=== PATIENT | male | born 1960 | race African-American/Black ===

== ENCOUNTER 2016-08-23 09:30 | Inpatient (IN) | payer MEDICARE, OTHER ==
[2016-08-23] VITALS (13 sets, daily range): BP systolic 74–110; BP diastolic 53–96
[~2016-08-23] VITALS: Ht 154.9 cm; Wt 54.6 kg
[~2016-08-23 09:30] MED LIST: ACET325T9 PO; ASPI325T4 PEG; BISA10SU55 RC; CHOL10003 PO; LEVE500T56 PO; LEVO500T38 PEG; MAGN2400 PO; VITA1TAB3 PO; [UNRECOGNIZED DRUG - REMARK] PO
[2016-08-23 10:46] LABS: BASO % 0 % (0-3); EOS % 0 % (0-3); HEMATOCRIT 42.1 % (39.0-53.0); HEMOGLOBIN 13.5 g/dL (13.0-17.5); LYMPH # 0.6 x10^3/uL (1.0-4.8); LYMPH % 7 % (24-48); MEAN CORPUSCULAR HEMOGLOBIN 35 pg (25-35); MEAN CORPUSCULAR HGB CONC 32 g/dL (31-37); MEAN CORPUSCULAR VOLUME 108 fL (79-100); MONO % 1 % (0-9); NEUT % 92 % (31-73); PLATELET COUNT 216 x10^3/uL (140-400); RED BLOOD COUNT 3.91 x10^6/uL (4.30-5.70); RED CELL DISTRIBUTION WIDTH 14.8 % (11.5-14.5); WHITE BLOOD COUNT 8.1 x10^3/uL (4.0-11.0)
--- NOTE | 2016-08-23 10:58 | RAD ---
Portable chest, 08/23/2016: History: Shortness of breath, dehydration, tachycardia Comparison is made to a study from 08/21/2015. The heart size is within normal limits. The pulmonary vascularity is normal. There are mild bibasilar infiltrates, right greater than left obscuring the cardiac margins. Severe degenerative change is present at the the left shoulder. IMPRESSION: Mild basilar infiltrates, right greater than left, suggesting pneumonia. Pulmonary edema is less likely.
[2016-08-23 11:00] LABS: INR 1.7 (0.8-1.1); PROTHROMBIN TIME PATIENT 18.9 SEC (11.7-14.0)
[2016-08-23 11:10] LABS: CKMB INDEX 0.2 % (0-4); CKMB MASS 1.1 ng/mL (0.0-3.6)
[2016-08-23] MEDS ORDERED: IV NORMAL SALINE 1000ML BAG 1,000 ML IV ONE ×3 (11:15→12:30)
--- NOTE | 2016-08-23 11:18 | EKG ---
[facility] [address] [place] [address] Test Date: 2016-08-23 Test Time: 11:04:49 Pat Name: KIMBERLY HAYNES Department: Room: Gender: M Plug Sorter: : 1960 Requested By: WON ANDRE Order Number: [id number] Reading MD: Kai Stone Measurements Intervals [place] Rate: 146 P: 23 VA: 102 QRS: 59 QRSD: 86 T: 107 QT: 270 QTc: 422 Interpretive Statements SINUS TACHYCARDIA LEFT ATRIAL ABNORMALITY NONSPECIFIC ST-T WAVE CHANGES. RI6.01 Unconfirmed report Compared to ECG 07/25/2015 13:25:26 Sinus rhythm no longer present Electronically Signed On 08-30-2016 10:30:13 MACHINE ADJUSTER HELPER by Kai Stone
[2016-08-23 11:23] LABS: ALBUMIN 2.6 g/dL (3.4-5.0); DIRECT BILIRUBIN 0.6 mg/dL (0.0-0.2); MAGNESIUM 2.3 mg/dL (1.8-2.4); TOTAL PROTEIN 8.4 g/dL (6.4-8.2)
[2016-08-23 11:26] LABS: CALCIUM 9.4 mg/dL (8.5-10.1); CREATININE 2.7 mg/dL (0.7-1.3); GFR 29.9; POTASSIUM 4.8 mmol/L (3.5-5.1)
[2016-08-23] MEDS ORDERED: PIP/TAZO PER PHARMACY MC PRN (11:30)
--- NOTE | 2016-08-23 11:31 | PHYS DOC ---
Past Medical History Past Medical History: Anemia, Arthritis, Seizure, UTI, Other Additional Past Medical Histor: DYSPHAGIA,DOWN SYNDROME,SOA,G-TUBE,ALTERED MENTAL STATUS Past Surgical History: Other Additional Past Surgical Histo: G-TUBE Alcohol Use: None Drug Use: None Adult General Chief Complaint Chief Complaint: SHORTNESS OF BREATH HPI HPI Patient is a 55 year old -[place] male who presents with fever and nausea vomiting. According to his mom who takes care of him he started this last night of fever 100.1 and the last around 8 PM started having nausea and vomiting. She said he does have kind of a cough but is nonproductive. He is fed by PEG tube only on the weekends and normally takes extra calories by mouth for his bedsore. Review of Systems Review of Systems Unable to obtain Current Medications Current Medications Current Medications Medications (Trade) Dose Ordered Sig/Vernell Start Time Stop Time Status Last Admin Dose Admin Levofloxacin/ Dextrose 100 ml @ 100 mls/hr 1X ONCE 08/23/16 11:30 08/23/16 12:29 DC 08/23/16 12:58 100 MLS/HR Piperacillin Sod/ Tazobactam Sod 4.5 gm/Sodium Chloride 100 ml @ 200 mls/hr 1X ONCE 08/23/16 12:00 08/23/16 12:29 DC 08/23/16 12:00 200 MLS/HR Piperacillin Sod/ Tazobactam Sod 1 each 1 each PRN DAILY PRN 08/23/16 11:30 Sodium Chloride (Iv Sodium Chloride 0.9% 1000ml Bag) 1,000 ml @ 1,000 mls/hr 1X ONCE 08/23/16 12:30 08/23/16 13:29 DC 08/23/16 12:46 1,000 MLS/HR Vancomycin HCl (Vanco Per Pharmacy) 1 each PRN DAILY PRN 08/23/16 11:30 08/23/16 14:07 1 EACH Vancomycin HCl 1.5 gm/Sodium Chloride 500 ml @ 250 mls/hr 1X ONCE 08/23/16 12:30 08/23/16 14:29 DC 08/23/16 12:30 250 MLS/HR Allergies Allergies Allergies Coded Allergies Type Severity Reaction Last Updated Verified No Known Drug Allergies 07/29/15 No Physical Exam Physical Exam Constitutional: Cachectic appearing, mild acute distress, non-toxic appearance. [] HENT: Normocephalic, atraumatic, bilateral external ears normal, oropharynx moist, no oral exudates, nose normal. [] Eyes: PERRLA, EOMI, conjunctiva normal, no discharge. [] Neck: Normal range of motion, no tenderness, supple, no stridor. [] Cardiovascular: Tachycardic with regular rhythm Lungs & Thorax: Bilateral breath sounds decreased, no wheezing [] Abdomen: Bowel sounds normal, soft, no tenderness, no masses, no pulsatile masses PEG tube in place [] Skin: Warm, dry, no erythema, no rash. [] Back: No tenderness, no CVA tenderness. [] Extremities: No tenderness, no cyanosis,no edema. [] Current Patient Data Vital Signs Vital Signs Date Time Temp Pulse Resp B/P Pulse Ox O2 Delivery O2 Flow Rate FiO2 08/23/16 12:45 118 32 85/59 97 Nasal Cannula 2 08/23/16 10:09 99.7 99.7 Lab Values Laboratory Tests Test 08/23/16 10:28 08/23/16 11:20 White Blood Count 8.1x10^3/uL (4.0-11.0) Red Blood Count 3.91x10^6/uL (4.30-5.70) L Hemoglobin 13.5g/dL (13.0-17.5) Hematocrit 42.1% (39.0-53.0) Mean Corpuscular Volume 108fL (79-100) H Mean Corpuscular Hemoglobin 35pg (25-35) Mean Corpuscular Hemoglobin Concent 32g/dL (31-37) Red Cell Distribution Width 14.8% (11.5-14.5) H Platelet Count 216x10^3/uL (140-400) Neutrophils (%) (Auto) 92% (31-73) H Lymphocytes (%) (Auto) 7% (24-48) L Monocytes (%) (Auto) 1% (0-9) Eosinophils (%) (Auto) 0% (0-3) Basophils (%) (Auto) 0% (0-3) Neutrophils # (Auto) 7.4x10^3uL (1.8-7.7) Lymphocytes # (Auto) 0.6x10^3/uL (1.0-4.8) L Monocytes # (Auto) 0.1x10^3/uL (0.0-1.1) Eosinophils # (Auto) 0.0x10^3/uL (0.0-0.7) Basophils # (Auto) 0.0x10^3/uL (0.0-0.2) Segmented Neutrophils % 16% (35-66) L Band Neutrophils % 67% (0-9) H Lymphocytes % 9% (24-48) L Monocytes % 1% (0-10) Eosinophils % 1% (0-5) Metamyelocytes % 6% (0-0) H Toxic Vacuolation Present Platelet Estimate Adequate (ADEQUATE) Polychromasia Slight Macrocytosis Present Prothrombin Time 18.9SEC (11.7-14.0) H Prothrombin Time INR 1.7 (0.8-1.1) H Sodium Level 143mmol/L (136-145) Potassium Level 4.8mmol/L (3.5-5.1) Chloride Level 98mmol/L (98-107) Carbon Dioxide Level 9mmol/L (21-32) *L Anion Gap 36 (6-14) H Blood Urea Nitrogen 38mg/dL (8-26) H Creatinine 2.7mg/dL (0.7-1.3) H Estimated GFR (Cockcroft-Gault) 29.9 Glucose Level 248mg/dL (70-99) H Calcium Level 9.4mg/dL (8.5-10.1) Magnesium Level 2.3mg/dL (1.8-2.4) Total Bilirubin 1.0mg/dL (0.2-1.0) Direct Bilirubin 0.6mg/dL (0.0-0.2) H Aspartate Amino Transferase (AST) 41U/L (15-37) H Alanine Aminotransferase (ALT) 59U/L (16-63) Alkaline Phosphatase 80U/L (46-116) Creatine Kinase 691U/L (39-308) H Creatine Kinase MB (Mass) 1.1ng/mL (0.0-3.6) Creatine Kinase MB Relative Index 0.2% (0-4) Troponin I Quantitative < 0.017ng/mL (0.000-0.055) NW-Bup-K-Type Natriuretic Peptide 2722pg/mL (0-124) H Total Protein 8.4g/dL (6.4-8.2) H Albumin 2.6g/dL (3.4-5.0) L Thyroid Stimulating Hormone (TSH) 11.445uIU/mL (0.358-3.74) H Influenza Type A Antigen Negative (NEGATIVE) Influenza Type B Antigen Negative (NEGATIVE) Laboratory Tests 08/23/16 10:28 Laboratory Tests 08/23/16 10:28 EKG EKG EKG shows sinus tachycardia with rate of [address] elevations, T- wave inversions noted in V5 and V6, normal axis, as interpreted by me. Radiology/Procedures Radiology/Procedures [facility] [address] [place] [address] IMAGING REPORT Signed PATIENT: KIMBERLY HAYNES ACCOUNT: [id number] : 1960 LOCATION: ER AGE: 55 SEX: M EXAM STATUS: REG ER ORD. PHYSICIAN: WON ANDRE MD REASON: soa PROCEDURE: PORTABLE CHEST 1V Portable chest, 08/23/2016: History: Shortness of breath, dehydration, tachycardia Comparison is made to a study from 08/21/2015. The heart size is within normal limits. The pulmonary vascularity is normal. There are mild bibasilar infiltrates, right greater than left obscuring the cardiac margins. Severe degenerative change is present at the the left shoulder. IMPRESSION: Mild basilar infiltrates, right greater than left, suggesting pneumonia. Pulmonary edema is less likely. DICTATED and SIGNED BY: GALILEO BUSTAMANTE MD DATE: 08/23/16 1054 CC: WON ANDRE MD; HILDA ROJAS NP ~ Impressions: Healthcare acquired pneumonia Acute renal failure Dehydration Hypotension Course & Med Decision Making Course & Med Decision Making Pertinent Labs and Imaging studies reviewed. (See chart for details) Blood cultures were obtained, chest x-ray confirms right lower lobe pneumonia and left lower lobe infiltrate. His blood pressure decreased to systolic of 90s 1 L fluid was given after his labs were obtained and his bicarbonate was low with an anion gap second liter is infusing. Spoke with the hospitalist was agreeable to putting patient in the hospital I wanted to the ICU for further close observation of blood pressure. The patient's mother is agreeable plan the patient's in stable but critical condition at this time. Dragon Disclaimer Dragon Disclaimer This electronic medical record was generated, in whole or in part, using a voice recognition dictation system. Departure Departure Impression: Primary Impression: Pneumonia Disposition: ADMITTED INPATIENT Admitting Physician: Michelle Davis Condition: GUARDED Referrals: HILDA ROJAS STEAM BLOCKER (PCP) WON ANDRE MD Aug 23, 2016 11:31
[2016-08-23 11:48] LABS: OBC FLU VALID
[2016-08-23 11:57] LABS: % EOS 1 % (0-5)
[2016-08-23 11:58] LABS: PLT ESTIMATE ADEQUATE (ADEQUATE); POLYCHROMASIA SLIGHT; TOXIC VACUOLATION PRESENT
[2016-08-23] MEDS ORDERED: EPINEPHRINE 30 MG/30 ML VIAL. ONE (12:00)
[2016-08-23] MEDS ORDERED: PIPERACILLIN/TAZOBACTAM 4.5 GM in IV NORMAL SALINE 100ML 100 ML IV ONE (12:00)
[2016-08-23] MEDS ORDERED: SODIUM BICARB ADULT 8.4% 50 MEQ/50 ML DISP.SYRIN. ONE (12:00)
[2016-08-23] MEDS ORDERED: EPINEPHRINE 1 MG/10 ML DISP.SYRIN. ONE (12:00)
[2016-08-23] MEDS ORDERED: VANCOMYCIN 1.5 GM in IV NORMAL SALINE 500ML BAG 500 ML IV ONE (12:30)
[2016-08-23] MEDS: VANCOMYCIN PER PHARMACY MC PRN (14:07)
--- NOTE | 2016-08-23 15:00 | ACF ---
Admission Forms Criteria PNEUMONIA, COMMUNITY ACQUIRED Clinical Indications for Admission to Inpatient Care ( Place 'X' for any and all applicable criteria): Admission is indicated for ANY ONE of the following (1)(2)(3): [ ]I. Hypoxemia indicated by ANY ONE of the following: [ ]a) Oxygen saturation less than 90% while breathing room air [ ]b) PO2 less than 60 mm Hg (8.0 kPa) while breathing room air [ ]c) Chronic lung disease with significant deterioration from baseline oxygenation [ ]II. Appropriate diagnostic testing and treatment unavailable in outpatient or recovery facility (eg,testing or infection control measures unavailable(10) [X]III. Moderate-risk or high-risk category patients (Pneumonia Severity Index (PSI) class IV or V, or CURB-65 score of 3 or greater). [ ]IV. Outpatient treatment failure as indicated by ANY ONE of the following(9) : [ ]a) Failure to respond to antibiotic (eg, resistant organism) [ ]b) Clinically significant adverse effects from medication (eg, vomiting) [ ]c) Complications of pneumonia (eg, empyema, bacteremia) [ ]d) Significant worsening of comorbid cond necessitating inpatient care (eg, chronic heart failure) [ ]V. Intermediate-risk category patients (eg, PSI class III or CURB-65 score 2) who do not improve with initial therapy and observation. [ ]. Immunocompromised patients (eg, AIDS, chronic steroid use) at moderate or high risk based on clinical evaluation. [ ]VII. Complicated pleural effusions (eg, exudative, loculated) [ ]VIII.Hemodynamic instability [ ] IX. Altered mental status that is severe or persistent. [ ]X. Dehydration that is severe or persistent. [ ]XI. Bacteremia [ ]XII. Respiratory finding (eg. tachypnea) that do not respond to outpatient or observation care treatment Extended stay beyond goal length of stay may be needed for (20) [ ]a) Unclear diagnosis [ ]b) Pleural disease [ ]c) Severe pneumonia or treatment failure (25 [ ]d) Respiratory failure (anticipate invasive or noninvasive ventilatory support) [ ]e) Abnormal serum electrolytes (serum Na concentration less than 135 mEq/L (mmol/L) (32)(33) [ ]f) Clinically significant comorbid illness (eg, heart failure, atrial fibrillation with rapid heart rate, alcohol withdrawal, renal insufficiency)(34)(35) [ ]g) Comorbid acute exacerbation of COPD(36) [ ]h) Concomitant diagnosis of malignancy that may be associated with malnutrition, immunologic impairment, or bronchial obstruction. [ ]i) Concomitant altered mental status [ ]j) Culture-identified Gram-negative or antibiotic-resistant organism (eg, Pseudomonas, methicillin-resistant Staphylococcus aureus)(30) [ ]k) Healthcare-associated pneumonia The original [facility] [facility] content created by [employer] has been revised. The portions of the content which have been revised are identified through the use of italic text or in bold, and [facility] has neither reviewed nor approved the modified material. All other unmodified content is copyright [facility]. Please see references footnoted in the original [facility] [email or web address] edition 2016 Admission Criteria Met?: Yes DIDIER MAHMOOD Aug 23, 2016 15:00
[2016-08-23 15:45] LABS: CALCIUM 8.7 mg/dL (8.5-10.1); CREATININE 2.5 mg/dL (0.7-1.3); GFR 32.7; POTASSIUM 4.9 mmol/L (3.5-5.1)
[2016-08-23] MEDS ORDERED: BISACODYL 10 MG SUPP.RECT RC PRN (15:45)
[2016-08-23] MEDS ORDERED: ACETAMINOPHEN 500 MG TABLET PO PRN (15:45)
[2016-08-23] MEDS ORDERED: LABETALOL 20 MG/4 ML DISP.SYRIN. IVP PRN (15:45)
[2016-08-23] MEDS ORDERED: MAGNESIUM HYDROXIDE 2,400 MG/30 ML ORAL.SUSP. PO PRN (15:45)
--- NOTE | 2016-08-23 15:59 | PDOC1 ---
History and Physical Date of Admission Date of Admission DATE: 08/23/16 TIME: 15:51 Identification/Chief Complaint Chief Complaint sent by mother bec of confusion? SZ? Source Source: Chart review History of Present Illness History of Present Illness 55 y/o AAmale who came from home and mother is the caregiver. Reports of meula SZ? confusion more vthan baseline? 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 HAs indwelling PEG. LAbs remarkable for crea 2 plus, Bicarb of 9 (rot is 10), lactate of 20, initially hypotensive needed iV boluses at ER and BP is fluid responsive, no urine output yet and condom cath inserted now at ICU, Seen at ICU, Crackles all over, CXR PNA R > L. WBC 8.1 , flu neg Reports of fever last night Past Medical History CENTRAL NERVOUS SYSTEM: CVA, Seizure, Other (downs) Musculoskeletal: Osteoarthritis Endocrine: Diabetes Past Surgical History Past Surgical History: Other (PEG), No pertinent history Family History Family History: Family History Unknown Social History Smoke: No ALCOHOL: none Drugs: None Current Problem List Problem List Problems Medical Problems: (1) HAP (hospital-acquired pneumonia) Status: Acute (2) Pneumonia Status: Acute Problems: Current Medications Current Medications Current Medications Sodium Chloride 1,000 ml @ 1,000 mls/hr 1X ONCE IV Last administered on 11:16; Start 08/23/16 at 11:15; Stop 08/23/16 at 12:14; Status DC Sodium Chloride (Iv Sodium Chloride 0.9% 1000ml Bag) 1,000 ml @ 1,000 mls/hr 1X ONCE IV ; Start 08/23/16 at 11:30; Stop 08/23/16 at 12:29; Status DC Vancomycin HCl (Vanco Per Pharmacy) 1 each PRN DAILY PRN MC SEE COMMENTS Last administered on 08/23/16 14:07; Start 08/23/16 at 11:30 Piperacillin Sod/ Tazobactam Sod 1 each 1 each PRN DAILY PRN MC SEE COMMENTS; Start 08/23/16 at 11:30 Levofloxacin/ Dextrose 100 ml @ 100 mls/hr 1X ONCE IV Last administered on 2/ 27/17at 12:58; Start 08/23/16 at 11:30; Stop 08/23/16 at 12:29; Status DC Piperacillin Sod/ Tazobactam Sod 4.5 gm/Sodium Chloride 100 ml @ 200 mls/hr 1X ONCE IV Last administered on 08/23/16 12:00; Start 08/23/16 at 12:00; Stop 08/23/16 at 12:29; Status DC Vancomycin HCl 1.5 gm/Sodium Chloride 500 ml @ 250 mls/hr 1X ONCE IV Last administered on 08/23/16t 12:30; Start 08/23/16 at 12:30; Stop 08/23/16 at 14:29 ; Status DC Sodium Chloride 1,000 ml @ 1,000 mls/hr 1X ONCE IV Last administered on t 12:46; Start 08/23/16 at 12:30; Stop 08/23/16 at 13:29; Status DC Piperacillin Sod/ Tazobactam Sod 3.375 gm/Sodium Chloride 50 ml @ 100 mls/hr Q6HRS IV ; Start 08/23/16 at 18:00 Vancomycin HCl/ Sodium Chloride (Iv Sodium Chloride 0.9% 250ml) 250 ml @ 250 mls/hr Q24H IV ; Start 08/24/16 at 13:00 Vancomycin HCl 1 each 1X ONCE MC ; Start 08/25/16 at 12:30; Stop 08/25/16 at 12: 31 Labetalol HCl (Normodyne) 10 mg PRN Q2HR PRN IVP HYPERTENSION, SEE COMMENTS; Start 08/23/16 at 15:45 Aspirin (Luis Armando Aspirin) 325 mg DAILY PEG ; Start 08/24/16 at 09:00 Bisacodyl (Dulcolax Supp) 10 mg PRN DAILY PRN RC CONSTIPATION; Start 08/23/16 at 15:45 Vitamin D (Vitamin D3) 2,000 unit DAILY PO ; Start 08/24/16 at 09:00 Levetiracetam (Keppra) 500 mg BID PO ; Start 08/23/16 at 21:00 Vitamin B Complex (Hector B) 1 tab DAILY PO ; Start 08/24/16 at 09:00 Magnesium Hydroxide (Milk Of Magnesia) 2,400 mg PRN DAILY PRN PO CONSTIPATION; Start 08/23/16 at 15:45 Acetaminophen (Tylenol) 500 mg PRN Q6HRS PRN PO MILD PAIN / TEMP; Start at 15:45 Active Scripts Active Reported Milk Of Magnesia (Magnesium Hydroxide) 2,400 Mg/10 Ml Oral.susp 2,400 Mg PO DAILY PRN Dulcolax (Bisacodyl) 10 Mg Supp.rect 10 Mg RC PRN DAILY PRN Aspirin 325 Mg Tablet 1 Tab PEG DAILY Tylenol (Acetaminophen) 325 Mg Tablet 2 Tab PO PRN Q6HRS PRN Vitamin B Complex 1 Each Tablet 1 Tab PO DAILY Vitamin D3 (Cholecalciferol (Vitamin D3)) 1,000 Unit Tablet 2,000 Unit PO DAILY Keppra (Levetiracetam) 500 Mg Tablet 500 Mg PO BID Allergies Allergies: Coded Allergies: No Known Drug Allergies (Unverified , 07/29/15) ROS Review of System non verbal Physical Exam General: Other (crackles all over) HEENT: Atraumatic Lungs: Normal air movement Heart: S1S2, other (sinus tachy) Male Genitals Exam: normal genitalia, normal prostate, other (urine smelling) Rectal Exam: not examined PELVIC: Nml ext genitalia Extremities: No clubbing, No cyanosis, No edema, Normal pulses, No tenderness/ swelling Psych/Mental Status: Other (non verbal) Vitals Vitals Vital Signs Date Time Temp Pulse Resp B/P Pulse Ox O2 Delivery O2 Flow Rate FiO2 08/23/16 10:09 99.7 137 32 176/107 92 Room Air 99.7 Labs Labs Laboratory Tests Test 08/23/16 10:28 08/23/16 11:20 08/23/16 13:43 08/23/16 15:15 White Blood Count 8.1x10^3/uL (4.0-11.0) Red Blood Count 3.91x10^6/uL (4.30-5.70) Hemoglobin 13.5g/dL (13.0-17.5) Hematocrit 42.1% (39.0-53.0) Mean Corpuscular Volume 108fL (79-100) Mean Corpuscular Hemoglobin 35pg (25-35) Mean Corpuscular Hemoglobin Concent 32g/dL (31-37) Red Cell Distribution Width 14.8% (11.5-14.5) Platelet Count 216x10^3/uL (140-400) Neutrophils (%) (Auto) 92% (31-73) Lymphocytes (%) (Auto) 7% (24-48) Monocytes (%) (Auto) 1% (0-9) Eosinophils (%) (Auto) 0% (0-3) Basophils (%) (Auto) 0% (0-3) Neutrophils # (Auto) 7.4x10^3uL (1.8-7.7) Lymphocytes # (Auto) 0.6x10^3/uL (1.0-4.8) Monocytes # (Auto) 0.1x10^3/uL (0.0-1.1) Eosinophils # (Auto) 0.0x10^3/uL (0.0-0.7) Basophils # (Auto) 0.0x10^3/uL (0.0-0.2) Segmented Neutrophils % 16% (35-66) Band Neutrophils % 67% (0-9) Lymphocytes % 9% (24-48) Monocytes % 1% (0-10) Eosinophils % 1% (0-5) Metamyelocytes % 6% (0-0) Toxic Vacuolation Present Platelet Estimate Adequate (ADEQUATE) Polychromasia Slight Macrocytosis Present Prothrombin Time 18.9SEC (11.7-14.0) Prothromb Time International Ratio 1.7 (0.8-1.1) Sodium Level 143mmol/L (136-145) 147mmol/L (136-145) Potassium Level 4.8mmol/L (3.5-5.1) 4.9mmol/L (3.5-5.1) Chloride Level 98mmol/L (98-107) 105mmol/L (98-107) Carbon Dioxide Level 9mmol/L (21-32) 10mmol/L (21-32) Anion Gap 36 (6-14) 32 (6-14) Blood Urea Nitrogen 38mg/dL (8-26) 37mg/dL (8-26) Creatinine 2.7mg/dL (0.7-1.3) 2.5mg/dL (0.7-1.3) Estimated GFR (Cockcroft-Gault) 29.9 32.7 Glucose Level 248mg/dL (70-99) 197mg/dL (70-99) Calcium Level 9.4mg/dL (8.5-10.1) 8.7mg/dL (8.5-10.1) Magnesium Level 2.3mg/dL (1.8-2.4) Total Bilirubin 1.0mg/dL (0.2-1.0) Direct Bilirubin 0.6mg/dL (0.0-0.2) Aspartate Amino Transf (AST/SGOT) 41U/L (15-37) Alanine Aminotransferase (ALT/SGPT) 59U/L (16-63) Alkaline Phosphatase 80U/L (46-116) Creatine Kinase 691U/L (39-308) Creatine Kinase MB (Mass) 1.1ng/mL (0.0-3.6) Creatine Kinase MB Relative Index 0.2% (0-4) Troponin I Quantitative < 0.017ng/mL (0.000-0.055) BE-Wkl-W-Type Natriuretic Peptide 2722pg/mL (0-124) Total Protein 8.4g/dL (6.4-8.2) Albumin 2.6g/dL (3.4-5.0) Thyroid Stimulating Hormone (TSH) 11.445uIU/mL (0.358-3.74) Influenza Type A Antigen Negative (NEGATIVE) Influenza Type B Antigen Negative (NEGATIVE) Lactic Acid Level 20.4mmol/L (0.4-2.0) Laboratory Tests Test 08/23/16 10:28 08/23/16 11:20 08/23/16 13:43 08/23/16 15:15 White Blood Count 8.1x10^3/uL (4.0-11.0) Red Blood Count 3.91x10^6/uL (4.30-5.70) Hemoglobin 13.5g/dL (13.0-17.5) Hematocrit 42.1% (39.0-53.0) Mean Corpuscular Volume 108fL (79-100) Mean Corpuscular Hemoglobin 35pg (25-35) Mean Corpuscular Hemoglobin Concent 32g/dL (31-37) Red Cell Distribution Width 14.8% (11.5-14.5) Platelet Count 216x10^3/uL (140-400) Neutrophils (%) (Auto) 92% (31-73) Lymphocytes (%) (Auto) 7% (24-48) Monocytes (%) (Auto) 1% (0-9) Eosinophils (%) (Auto) 0% (0-3) Basophils (%) (Auto) 0% (0-3) Neutrophils # (Auto) 7.4x10^3uL (1.8-7.7) Lymphocytes # (Auto) 0.6x10^3/uL (1.0-4.8) Monocytes # (Auto) 0.1x10^3/uL (0.0-1.1) Eosinophils # (Auto) 0.0x10^3/uL (0.0-0.7) Basophils # (Auto) 0.0x10^3/uL (0.0-0.2) Segmented Neutrophils % 16% (35-66) Band Neutrophils % 67% (0-9) Lymphocytes % 9% (24-48) Monocytes % 1% (0-10) Eosinophils % 1% (0-5) Metamyelocytes % 6% (0-0) Toxic Vacuolation Present Platelet Estimate Adequate (ADEQUATE) Polychromasia Slight Macrocytosis Present Prothrombin Time 18.9SEC (11.7-14.0) Prothromb Time International Ratio 1.7 (0.8-1.1) Sodium Level 143mmol/L (136-145) 147mmol/L (136-145) Potassium Level 4.8mmol/L (3.5-5.1) 4.9mmol/L (3.5-5.1) Chloride Level 98mmol/L (98-107) 105mmol/L (98-107) Carbon Dioxide Level 9mmol/L (21-32) 10mmol/L (21-32) Anion Gap 36 (6-14) 32 (6-14) Blood Urea Nitrogen 38mg/dL (8-26) 37mg/dL (8-26) Creatinine 2.7mg/dL (0.7-1.3) 2.5mg/dL (0.7-1.3) Estimated GFR (Cockcroft-Gault) 29.9 32.7 Glucose Level 248mg/dL (70-99) 197mg/dL (70-99) Calcium Level 9.4mg/dL (8.5-10.1) 8.7mg/dL (8.5-10.1) Magnesium Level 2.3mg/dL (1.8-2.4) Total Bilirubin 1.0mg/dL (0.2-1.0) Direct Bilirubin 0.6mg/dL (0.0-0.2) Aspartate Amino Transf (AST/SGOT) 41U/L (15-37) Alanine Aminotransferase (ALT/SGPT) 59U/L (16-63) Alkaline Phosphatase 80U/L (46-116) Creatine Kinase 691U/L (39-308) Creatine Kinase MB (Mass) 1.1ng/mL (0.0-3.6) Creatine Kinase MB Relative Index 0.2% (0-4) Troponin I Quantitative < 0.017ng/mL (0.000-0.055) ET-Ssz-Y-Type Natriuretic Peptide 2722pg/mL (0-124) Total Protein 8.4g/dL (6.4-8.2) Albumin 2.6g/dL (3.4-5.0) Thyroid Stimulating Hormone (TSH) 11.445uIU/mL (0.358-3.74) Influenza Type A Antigen Negative (NEGATIVE) Influenza Type B Antigen Negative (NEGATIVE) Lactic Acid Level 20.4mmol/L (0.4-2.0) VTE Prophylaxis Ordered VTE Prophylaxis Devices: Yes VTE Pharmacological Prophylaxi: Yes Assessment/Plan Assessment/Plan 1. Severe SEPSIS infectious in origin (PNA) with HIGH LACTATE and ORGAN dysfunction (HYPOTENSION) 2. PNEUMONIA, bed bound, gram pos, gram neg, anaerobes, ASPIRATION highly likely 3. BED bound, non verbal, hx down's hx CVA 4. DYsphagia, indwelling PEG 5. OLiguric renal failure 6. MAHAD, vasomotor 7. GAp metabolic acidosis, recent vomiting, severe sepsis PLAN: Aggressive iVF Broad spectrum to cover gram pos, gram neg and anaerboes as aspiration IS A HIGH consideration in this pt Recheck lactate and labs johan AM TF via peg with nutrition consult CHeck KUB first - had vomiting r/o obstruction before starting feeding, might need to be NPO for days make sure not aspirating CHeck ABG - check pH MIght need bicarb - likely will need bicarb gtt Get pulmonary critical care, renal and iD consults -severe sepsis Heparin for DVT prophy PPI since nPO FIRST AID OFFICER eval johan HOUSE for now since NPO Dw DIP PAINTER 2 MN CC 35 mins AYDIRA CUENCA MD Aug 23, 2016 15:59
[2016-08-23] MEDS ORDERED: SODIUM BICARB ADULT 8.4% 50 MEQ/50 ML DISP.SYRIN. IV ONE (16:15)
[2016-08-23 16:23] LABS: HCO3 ABG 7 mmol/L (21-28); PCO2 ABG 21 mmHg (35-46); PO2 ABG 61 mmHg (75-108); SAT O2 ABG 84 % (92-99)
[2016-08-23] MEDS: SODIUM BICARBONATE VIAL 150 MEQ in IV DEXTROSE 5% 1,000 ML IV SCH (16:30)
[2016-08-23 16:35] LABS: FREE T4 0.88 ng/dL (0.76-1.46)
[2016-08-23 17:21] LABS: BILIRUBIN,URINE SMALL (NEG); GLUCOSE,URINE NEGATIVE (NEG); NITRITE,URINE POSITIVE (NEG); PH,URINE 7.5; PROTEIN,URINE >=300 mg/dL (NEG-TRACE)
[2016-08-23 17:28] LABS: RBC,URINE TNTC /HPF (0-2)
[2016-08-23 17:29] LABS: BACTERIA,URINE MANY /HPF (0-FEW); WBC,URINE TNTC /HPF (0-4)
[2016-08-23 17:31] LABS: FIO2 ABG 21; PH ABG 7.14 (7.35-7.45)
[2016-08-23 17:37] LABS: BASO % 0 % (0-3); EOS % 0 % (0-3); HEMATOCRIT 30.8 % (39.0-53.0); HEMOGLOBIN 10.2 g/dL (13.0-17.5); LYMPH # 0.6 x10^3/uL (1.0-4.8); LYMPH % 6 % (24-48); MEAN CORPUSCULAR HEMOGLOBIN 35 pg (25-35); MEAN CORPUSCULAR HGB CONC 33 g/dL (31-37); MEAN CORPUSCULAR VOLUME 105 fL (79-100); MONO % 1 % (0-9); NEUT % 93 % (31-73); PLATELET COUNT 140 x10^3/uL (140-400); RED BLOOD COUNT 2.92 x10^6/uL (4.30-5.70); RED CELL DISTRIBUTION WIDTH 14.3 % (11.5-14.5); WHITE BLOOD COUNT 10.9 x10^3/uL (4.0-11.0)
[2016-08-23 17:47] LABS: INR 1.9 (0.8-1.1); PROTHROMBIN TIME PATIENT 20.8 SEC (11.7-14.0)
--- NOTE | 2016-08-23 17:51 | RAD ---
One-view chest History line placement Portable upright AP view chest 5:07 p.m. Comparison August 21, 2015 There has been interval insertion on the left PICC with its tip in the low SVC near the junction with the right atrium. The patient is rotated to the right. The pulmonary vessels appear slightly congested and there is perihilar and basilar patchy opacities. The pleural margins are clear. There is marked degenerate changes of the left shoulder with a high-riding humeral head. Impression 1. The left PICC appears to have its tip in the atrial caval junction. This is likely adequate. 2. Worsening bilateral infiltrates likely pneumonia. 3. 3. Chronic left shoulder degenerative changes with a full-thickness rotator cuff tear. Electronically signed by: Brennon Pritchett MD (Aug 23, 2016 17:49:38)
[2016-08-23] MEDS: IPRATRPIUM/ALBUTEROL 0.5/2.5MG 3 ML NEBU. NEB SCH (18:19)
[2016-08-23] MEDS: PIPERACILLIN/TAZOBACTAM 3.375 GM in IV NORMAL SALINE 50ML 50 ML IV SCH (18:24)
[2016-08-23] MEDS ORDERED: IV NORMAL SALINE 1000ML BAG 1,000 ML IV SCH (18:30)
[2016-08-23] MEDS: NOREPINEPHRINE VIAL 8 MG in IV NORMAL SALINE 250ML 250 ML IV PRN (18:43)
[2016-08-23 20:08] LABS: FIO2 ABG 40; HCO3 ABG 10 mmol/L (21-28); PCO2 ABG 21 mmHg (35-46); PO2 ABG 53 mmHg (75-108); SAT O2 ABG 85 % (92-99)
[2016-08-23 20:29] LABS: HEMATOCRIT 32.6 % (39.0-53.0); HEMOGLOBIN 10.5 g/dL (13.0-17.5); RED BLOOD COUNT 3.03 x10^6/uL (4.30-5.70); RED CELL DISTRIBUTION WIDTH 14.2 % (11.5-14.5); WHITE BLOOD COUNT 9.5 x10^3/uL (4.0-11.0)
[2016-08-23 20:47] LABS: CALCIUM 7.3 mg/dL (8.5-10.1); CREATININE 2.4 mg/dL (0.7-1.3); GFR 34.3; POTASSIUM 4.4 mmol/L (3.5-5.1)
[2016-08-23] MEDS ORDERED: LEVETIRACETAM 500 MG TABLET PO SCH (21:00)
[2016-08-23] MEDS: LEVETIRACETAM 500 MG in IV NORMAL SALINE 100ML 100 ML IV SCH (21:03)
[2016-08-23] MEDS ORDERED: HEPARIN PF for SUB-Q USE 5,000 UNIT/0.5 ML VIAL. SQ SCH (22:00)
--- NOTE | 2016-08-23 22:23 | PDOC ---
Provider Note Provider Note full note dictated d/w SADA RIVERA MD Aug 23, 2016 22:23
--- NOTE | 2016-08-23 22:39 | RAD ---
PROCEDURE Portable chest radiograph 08/23/2016 HISTORY Shortness of breath. ICU patient. FINDINGS An AP portable semi erect digital radiograph of the chest was obtained. Comparison study is dated earlier today at 1707 hours. The left arm PICC is unchanged in position. The cardiac silhouette is borderline enlarged. The thoracic aorta is mildly tortuous. Areas of atelectasis and/or infiltrate are seen involving both lower lobes essentially unchanged. No pneumothorax or pleural effusion is noted. The osseous structures are unchanged. IMPRESSION Bilateral lower lobe atelectasis and/or infiltrate, unchanged. Electronically signed by: Gerardo Estrada MD (Aug 23, 2016 22:37:38)
--- NOTE | 2016-08-23 23:12 | CONS ---
DATE OF CONSULTATION: ATTENDING PHYSICIAN: Dr. Davis. REASON FOR CONSULTATION: Sepsis, pneumonia and hypotension. HISTORY OF PRESENT ILLNESS: The patient is a 55-year-old -[place] male, who has history of Down syndrome, history of dysphagia, G-tube placement and history of seizure disorder. He was brought into the Emergency Room after he was noted to have fever and also nausea, vomiting at home. According to the mother, who takes care of him, the fever started the night before admission and he had some nausea and vomiting later. Also had a cough which has been nonproductive. The patient is usually fed through the PEG tube only on weekends and normally takes extra calories by mouth. In the ER, he was noted to have multiple abnormal values. He was noted to have an acute renal failure with severe metabolic acidosis. BUN was 37 and a creatinine of 2.5 with a bicarbonate of 10. His white blood cell count was not elevated, it was 8.1 on admission and 13.5 hemoglobin with a hematocrit of 42. He had mild coagulopathy with an INR of 1.9. His urine had shown multiple wbc's and rbc's. RN had attempted to place a Bowling catheter and had bloody output. Urology has been consulted. His influenza screen was negative. His initial arterial blood gases revealed a pH of 7.14, pCO2 of 21 and a pO2 of 61 with a bicarbonate of only 7. Nephrology was also consulted and the patient received initially multiple ampules of bicarbonate and then was placed on a bicarbonate drip. His latest ABG showed a pH of 7.30, pCO2 of 21 and a pO2 of 53 on 40% FiO2. The patient received at least 4 liters of IV fluids. His chest x-ray initially showed interstitial infiltrates in the right lung and followup x-ray shows some mild progression to the left lung as well. There was no significant pleural effusion. After aggressive fluid resuscitation, he is now requiring 10 mcg of Levophed. Infectious Disease was also consulted and broad spectrum antibiotics including vancomycin, Zosyn was initiated. I have been asked to see him for further evaluation of his critical illness. PAST MEDICAL HISTORY: Significant for history of anemia, arthritis, seizures, UTI, dysphagia, Down syndrome and PEG tube placement. PAST SURGICAL HISTORY: G-tube. ALLERGIES: None. CURRENT MEDICATIONS: All reviewed as listed in the MRAD. REVIEW OF SYSTEMS: Unable to obtain from the patient as he does not communicate. PHYSICAL EXAMINATION: VITAL SIGNS: Latest blood pressure is ranging from 85 systolic to 106 systolic. Pulse is in the one teens. Pulse ox is 98%, this is on 50% FiO2. HEENT: Sclerae nonicteric. NECK: Supple. LUNGS: With coarse, breath sounds on the right. No wheezing. CARDIOVASCULAR: Tachycardia, sinus. ABDOMEN: Soft. PEG tube in place. EXTREMITIES: With no pitting edema. LABORATORY DATA: Reviewed. ABGs as discussed in my history of present illness. Chemistries with a BUN of 37 and creatinine of 2.5. Lactic acid initially was 20, repeat was 19.7 and latest is 14.4. Urine is consistent with infection. INR is 1.9. IMPRESSION: 1. Acute hypoxic respiratory failure secondary to severe sepsis and now in shock. 2. Septic shock. Sources of infection include pneumonia and UTI. After aggressive volume resuscitation of 4 litres, he is now requiring 10 mics of Levophed. 3. Abnormal chest x-ray with initial x-ray showing infiltrates in the right lung and now involving the left lung as well. The chest x-ray shows slightly worsening and is probably post-hydration affect. 4. Acute severe metabolic acidosis with severe lactic acidosis secondary to sepsis/septic shock. MAHAD contributing to metabolic acidosis. 5. Hematuria could be traumatic, Urology has been consulted for further evaluation. 6. Urinary tract infection. 7. Coagulopathy, most likely related to early disseminated intravascular coagulation. 8. Underlying Down's syndrome RECOMMENDATIONS: 1. Continue with present BiPAP. Increase the FiO2 from 40% to 50% to correct his hypoxia. 2. Broad spectrum antibiotics per Infectious Disease recommendations. 3. Continue with IV fluids with bicarbonate. 4. Lactic acidosis is improving. 5. The patient has received 4 liters of IV fluid and now on vasopressor. At this time, I would also add hydrocortisone. 6. Monitor PT and INR. 7. Monitor platelets. 8. Monitor urine output. 9. Follow Urology recommendations. 10. Follow Nephrology recommendation. 11. SCDs for DVT prophylaxis. The patient's INR is already elevated. 12. Protonix for stress ulcer prophylaxis. 13. Discussed with RN in detail. We will follow along with you. Critical care time 37 minutes. addend: unable to reach mother, message left for her to call me back. SADA CORTEZ MD DR: Elyse JOB#: [id number] / [id number] KEN
[2016-08-24] VITALS (22 sets, daily range): BP systolic 72–145; BP diastolic 56–97
[2016-08-24] MEDS: PIPERACILLIN/TAZOBACTAM 3.375 GM in IV NORMAL SALINE 50ML 50 ML IV SCH ×4 (00:28→18:12)
[2016-08-24] MEDS: HYDROCORTISONE SOD SUCC/PF 100 MG/2 ML VIAL. IV SCH ×4 (00:29→22:00)
[2016-08-24] MEDS: SODIUM BICARBONATE VIAL 150 MEQ in IV DEXTROSE 5% 1,000 ML IV SCH ×3 (01:02→15:36)
[2016-08-24 01:35] LABS: PROTHROMBIN TIME PATIENT 21.2 SEC (11.7-14.0)
[2016-08-24] MEDS ORDERED: ETOMIDATE 20 MG/10 ML VIAL. IV ONE (04:15)
[2016-08-24] MEDS ORDERED: SUCCINYLCHOLINE 200 MG/10 ML VIAL. ONE (04:15)
[2016-08-24 04:42] LABS: PCO2 ABG 42 mmHg (35-46); PH ABG 7.23 (7.35-7.45)
[2016-08-24 04:43] LABS: BODY TEMP ABG 98.6 DEG; CORRECTED PCO2 ABG 45 mmHg; CORRECTED PH ABG 7.21; CORRECTED PO2 ABG 61 mmHg; FIO2 ABG 50; HCO3 ABG 17 mmol/L (21-28); PO2 ABG 56 mmHg (75-108); SAT O2 ABG 82 % (92-99)
[2016-08-24] MEDS ORDERED: FENTANYL PF 100 MCG/2 ML VIAL. IV PRN ×2 (04:45)
[2016-08-24] MEDS ORDERED: MIDAZOLAM PREMIX 100 ML IV ONE (04:52)
[2016-08-24 05:00] LABS: BASO % 1 % (0-3); EOS % 0 % (0-3); HEMATOCRIT 33.3 % (39.0-53.0); HEMOGLOBIN 10.8 g/dL (13.0-17.5); LYMPH # 0.4 x10^3/uL (1.0-4.8); LYMPH % 5 % (24-48); MEAN CORPUSCULAR HEMOGLOBIN 34 pg (25-35); MEAN CORPUSCULAR HGB CONC 32 g/dL (31-37); MEAN CORPUSCULAR VOLUME 106 fL (79-100); MONO % 2 % (0-9); NEUT % 92 % (31-73); PLATELET COUNT 140 x10^3/uL (140-400); RED BLOOD COUNT 3.14 x10^6/uL (4.30-5.70); RED CELL DISTRIBUTION WIDTH 14.2 % (11.5-14.5); WHITE BLOOD COUNT 8.4 x10^3/uL (4.0-11.0)
[2016-08-24 05:22] LABS: ALBUMIN 1.7 g/dL (3.4-5.0); ALBUMIN/GLOBULIN RATIO 0.4 (1.0-1.7); CALCIUM 7.6 mg/dL (8.5-10.1); CREATININE 2.3 mg/dL (0.7-1.3); POTASSIUM 4.8 mmol/L (3.5-5.1); TOTAL BILIRUBIN 0.9 mg/dL (0.2-1.0)
--- NOTE | 2016-08-24 05:25 | RAD ---
PROCEDURE Supine abdomen HISTORY OGT PLACEMENT TECHNIQUE Supine view was taken of the abdomen COMPARISON None FINDINGS There is a gastrostomy tube. There is an NG tube in the stomach. There is increased stool in the rectum possibly fecal impaction. There is no small bowel obstruction. There are basilar infiltrates more prominent on the right. IMPRESSION Gastrostomy tube in in the stomach. 2. NG tube in the stomach. 3. Increased stool in the rectum possible fecal impaction. 4. Infiltrates in the lung bases more prominent on the right. Electronically signed by: Cy Smalsl MD (Aug 24, 2016 05:23:20)
--- NOTE | 2016-08-24 05:26 | RAD ---
PROCEDURE AP chest HISTORY ETT PLACEMENT TECHNIQUE Portable AP view was taken of the chest COMPARISON Comparison is made with the study from 1 day ago FINDINGS Endotracheal tube is just above the jennifer at the bottom of the aortic arch. Left PICC line extends to the right atrium. There are bilateral infiltrates with interval worsening compared to 1 day ago. NG tube extends into the stomach. IMPRESSION Increased bilateral infiltrates Left PICC line extends to the right atrium Endotracheal tube just above the jennifer. Electronically signed by: Cy Smalls MD (Aug 24, 2016 05:25:07)
[2016-08-24] MEDS ORDERED: PHENYLEPHRINE INJ 20 MG in IV NORMAL SALINE 250ML 250 ML IV PRN (05:45)
[2016-08-24] MEDS ORDERED: IV 1/2 NORMAL SALINE 1,000 ML IV SCH (05:45)
[2016-08-24] MEDS ORDERED: ALBUMIN HUMAN 5% 500 ML IV ONE (05:45)
[2016-08-24] MEDS ORDERED: VASOPRESSIN 40 UNIT in IV DEXTROSE 5% 100 ML IV ONE (06:00)
[2016-08-24 06:07] LABS: BASE EXCESS COOX -8 mmol/L (-3-3); FIO2 COOX 100; HCO3 COOX 15 mmol/L (21-28); PCO2 COOX 23 mmHg (35-46); PH COOX 7.42 (7.35-7.45); PO2 COOX 161 mmHg (75-108); SAT O2 COOX 99 % (92-99)
[2016-08-24] MEDS: MIDAZOLAM PREMIX 100 ML IV PRN ×2 (06:13→20:53)
--- NOTE | 2016-08-24 07:02 | PDOC ---
Infectious Disease Note ROS ROS Vital Sign Vital Signs Vital Signs Date Time Temp Pulse Resp B/P Pulse Ox O2 Delivery O2 Flow Rate FiO2 08/24/16 05:30 98 Ventilator 08/24/16 02:00 126 27 72/64 08/24/16 01:00 98.5 98.5 08/23/16 20:00 5.0 Labs Lab Laboratory Tests Test 08/23/16 10:28 08/23/16 11:20 08/23/16 13:43 08/23/16 15:00 White Blood Count 8.1x10^3/uL (4.0-11.0) Red Blood Count 3.91x10^6/uL (4.30-5.70) Hemoglobin 13.5g/dL (13.0-17.5) Hematocrit 42.1% (39.0-53.0) Mean Corpuscular Volume 108fL (79-100) Mean Corpuscular Hemoglobin 35pg (25-35) Mean Corpuscular Hemoglobin Concent 32g/dL (31-37) Red Cell Distribution Width 14.8% (11.5-14.5) Platelet Count 216x10^3/uL (140-400) Neutrophils (%) (Auto) 92% (31-73) Lymphocytes (%) (Auto) 7% (24-48) Monocytes (%) (Auto) 1% (0-9) Eosinophils (%) (Auto) 0% (0-3) Basophils (%) (Auto) 0% (0-3) Neutrophils # (Auto) 7.4x10^3uL (1.8-7.7) Lymphocytes # (Auto) 0.6x10^3/uL (1.0-4.8) Monocytes # (Auto) 0.1x10^3/uL (0.0-1.1) Eosinophils # (Auto) 0.0x10^3/uL (0.0-0.7) Basophils # (Auto) 0.0x10^3/uL (0.0-0.2) Segmented Neutrophils % 16% (35-66) Band Neutrophils % 67% (0-9) Lymphocytes % 9% (24-48) Monocytes % 1% (0-10) Eosinophils % 1% (0-5) Metamyelocytes % 6% (0-0) Toxic Vacuolation Present Platelet Estimate Adequate (ADEQUATE) Polychromasia Slight Macrocytosis Present Prothrombin Time 18.9SEC (11.7-14.0) Prothromb Time International Ratio 1.7 (0.8-1.1) Sodium Level 143mmol/L (136-145) Potassium Level 4.8mmol/L (3.5-5.1) Chloride Level 98mmol/L (98-107) Carbon Dioxide Level 9mmol/L (21-32) Anion Gap 36 (6-14) Blood Urea Nitrogen 38mg/dL (8-26) Creatinine 2.7mg/dL (0.7-1.3) Estimated GFR (Cockcroft-Gault) 29.9 Glucose Level 248mg/dL (70-99) Calcium Level 9.4mg/dL (8.5-10.1) Magnesium Level 2.3mg/dL (1.8-2.4) Total Bilirubin 1.0mg/dL (0.2-1.0) Direct Bilirubin 0.6mg/dL (0.0-0.2) Aspartate Amino Transf (AST/SGOT) 41U/L (15-37) Alanine Aminotransferase (ALT/SGPT) 59U/L (16-63) Alkaline Phosphatase 80U/L (46-116) Creatine Kinase 691U/L (39-308) Creatine Kinase MB (Mass) 1.1ng/mL (0.0-3.6) Creatine Kinase MB Relative Index 0.2% (0-4) Troponin I Quantitative < 0.017ng/mL (0.000-0.055) TD-Bod-C-Type Natriuretic Peptide 2722pg/mL (0-124) Total Protein 8.4g/dL (6.4-8.2) Albumin 2.6g/dL (3.4-5.0) Thyroid Stimulating Hormone (TSH) 11.445uIU/mL (0.358-3.74) Influenza Type A Antigen Negative (NEGATIVE) Influenza Type B Antigen Negative (NEGATIVE) Lactic Acid Level 20.4mmol/L (0.4-2.0) Nasal Screen MRSA (PCR) Negative (Negative) Test 08/23/16 15:15 08/23/16 16:15 08/23/16 17:00 08/23/16 17:30 Sodium Level 147mmol/L (136-145) Potassium Level 4.9mmol/L (3.5-5.1) Chloride Level 105mmol/L (98-107) Carbon Dioxide Level 10mmol/L (21-32) Anion Gap 32 (6-14) Blood Urea Nitrogen 37mg/dL (8-26) Creatinine 2.5mg/dL (0.7-1.3) Estimated GFR (Cockcroft-Gault) 32.7 Glucose Level 197mg/dL (70-99) Lactic Acid Level 19.7mmol/L (0.4-2.0) Calcium Level 8.7mg/dL (8.5-10.1) Free Thyroxine 0.88ng/dL (0.76-1.46) Free Triiodothyronine (T3) pg/mL < 0.50pg/mL (2.18-3.98) O2 Saturation 84% (92-99) Arterial Blood pH 7.14 (7.35-7.45) Arterial Blood pCO2 at Patient Temp 21mmHg (35-46) Arterial Blood pO2 at Patient Temp 61mmHg (75-108) Arterial Blood HCO3 7mmol/L (21-28) Arterial Blood Base Excess -20mmol/L (-3-3) FiO2 21 Urine Collection Type Unknown Urine Color Red Urine Clarity Turbid Urine pH 7.5 Urine Specific [place] 1.015 Urine Protein >=300mg/dL (NEG-TRACE) Urine Glucose (UA) Negativemg/dL (NEG) Urine Ketones (Stick) Tracemg/dL (NEG) Urine Blood Large (NEG) Urine Nitrite Positive (NEG) Urine Bilirubin Small (NEG) Urine Urobilinogen Dipstick 1.0mg/dL (0.2 mg/dL) Urine Leukocyte Esterase Large (NEG) Urine RBC Tntc/HPF (0-2) Urine WBC Tntc/HPF (0-4) Urine Squamous Epithelial Cells None/LPF Urine Bacteria Many/HPF (0-FEW) White Blood Count 10.9x10^3/uL (4.0-11.0) Red Blood Count 2.92x10^6/uL (4.30-5.70) Hemoglobin 10.2g/dL (13.0-17.5) Hematocrit 30.8% (39.0-53.0) Mean Corpuscular Volume 105fL (79-100) Mean Corpuscular Hemoglobin 35pg (25-35) Mean Corpuscular Hemoglobin Concent 33g/dL (31-37) Red Cell Distribution Width 14.3% (11.5-14.5) Platelet Count 140x10^3/uL (140-400) Neutrophils (%) (Auto) 93% (31-73) Lymphocytes (%) (Auto) 6% (24-48) Monocytes (%) (Auto) 1% (0-9) Eosinophils (%) (Auto) 0% (0-3) Basophils (%) (Auto) 0% (0-3) Neutrophils # (Auto) 10.1x10^3uL (1.8-7.7) Lymphocytes # (Auto) 0.6x10^3/uL (1.0-4.8) Monocytes # (Auto) 0.1x10^3/uL (0.0-1.1) Eosinophils # (Auto) 0.0x10^3/uL (0.0-0.7) Basophils # (Auto) 0.0x10^3/uL (0.0-0.2) Prothrombin Time 20.8SEC (11.7-14.0) Prothromb Time International Ratio 1.9 (0.8-1.1) Test 08/23/16 20:00 08/23/16 20:15 08/24/16 01:05 08/24/16 03:48 O2 Saturation 85% (92-99) 82% (92-99) Arterial Blood pH 7.30 (7.35-7.45) 7.23 (7.35-7.45) Arterial Blood pCO2 at Patient Temp 21mmHg (35-46) 42mmHg (35-46) Arterial Blood pO2 at Patient Temp 53mmHg (75-108) 56mmHg (75-108) Arterial Blood HCO3 10mmol/L (21-28) 17mmol/L (21-28) Arterial Blood Base Excess -15mmol/L (-3-3) -10mmol/L (-3-3) FiO2 40 50 White Blood Count 9.5x10^3/uL (4.0-11.0) Red Blood Count 3.03x10^6/uL (4.30-5.70) Hemoglobin 10.5g/dL (13.0-17.5) Hematocrit 32.6% (39.0-53.0) Mean Corpuscular Volume 107fL (79-100) Mean Corpuscular Hemoglobin 35pg (25-35) Mean Corpuscular Hemoglobin Concent 32g/dL (31-37) Red Cell Distribution Width 14.2% (11.5-14.5) Platelet Count 142x10^3/uL (140-400) Sodium Level 148mmol/L (136-145) Potassium Level 4.4mmol/L (3.5-5.1) Chloride Level 109mmol/L (98-107) Carbon Dioxide Level 13mmol/L (21-32) Anion Gap 26 (6-14) Blood Urea Nitrogen 34mg/dL (8-26) Creatinine 2.4mg/dL (0.7-1.3) Estimated GFR (Cockcroft-Gault) 34.3 Glucose Level 182mg/dL (70-99) Lactic Acid Level 14.4mmol/L (0.4-2.0) 12.7mmol/L (0.4-2.0) Calcium Level 7.3mg/dL (8.5-10.1) Troponin I Quantitative 0.031ng/mL (0.000-0.055) 0.055ng/mL (0.000-0.055) Prothrombin Time 21.2SEC (11.7-14.0) Prothromb Time International Ratio 2.0 (0.8-1.1) Arterial Blood pH (Temp corrected) 7.21 Arterial Blood pCO2 (Temp correct) 45mmHg Arterial Blood pO2 (Temp corrected) 61mmHg Test 08/24/16 04:50 08/24/16 05:52 White Blood Count 8.4x10^3/uL (4.0-11.0) Red Blood Count 3.14x10^6/uL (4.30-5.70) Hemoglobin 10.8g/dL (13.0-17.5) Hematocrit 33.3% (39.0-53.0) Mean Corpuscular Volume 106fL (79-100) Mean Corpuscular Hemoglobin 34pg (25-35) Mean Corpuscular Hemoglobin Concent 32g/dL (31-37) Red Cell Distribution Width 14.2% (11.5-14.5) Platelet Count 140x10^3/uL (140-400) Neutrophils (%) (Auto) 92% (31-73) Lymphocytes (%) (Auto) 5% (24-48) Monocytes (%) (Auto) 2% (0-9) Eosinophils (%) (Auto) 0% (0-3) Basophils (%) (Auto) 1% (0-3) Neutrophils # (Auto) 7.8x10^3uL (1.8-7.7) Lymphocytes # (Auto) 0.4x10^3/uL (1.0-4.8) Monocytes # (Auto) 0.2x10^3/uL (0.0-1.1) Eosinophils # (Auto) 0.0x10^3/uL (0.0-0.7) Basophils # (Auto) 0.0x10^3/uL (0.0-0.2) Sodium Level 146mmol/L (136-145) Potassium Level 4.8mmol/L (3.5-5.1) Chloride Level 107mmol/L (98-107) Carbon Dioxide Level 18mmol/L (21-32) Anion Gap 21 (6-14) Blood Urea Nitrogen 38mg/dL (8-26) Creatinine 2.3mg/dL (0.7-1.3) Estimated GFR (Cockcroft-Gault) 36.0 BUN/Creatinine Ratio 17 (6-20) Glucose Level 162mg/dL (70-99) Lactic Acid Level 12.2mmol/L (0.4-2.0) Calcium Level 7.6mg/dL (8.5-10.1) Total Bilirubin 0.9mg/dL (0.2-1.0) Aspartate Amino Transf (AST/SGOT) 76U/L (15-37) Alanine Aminotransferase (ALT/SGPT) 46U/L (16-63) Alkaline Phosphatase 42U/L (46-116) Total Protein 6.0g/dL (6.4-8.2) Albumin 1.7g/dL (3.4-5.0) Albumin/Globulin Ratio 0.4 (1.0-1.7) O2 Saturation 99% (92-99) Arterial Blood pH 7.42 (7.35-7.45) Arterial Blood pCO2 at Patient Temp 23mmHg (35-46) Arterial Blood pO2 at Patient Temp 161mmHg (75-108) Arterial Blood HCO3 15mmol/L (21-28) Arterial Blood Base Excess -8mmol/L (-3-3) FiO2 100 Objective Assessment Severe Sepsis Acute Resp failure - intubated Lactic acidosis MAHAD with h/o hydronephrosis Bandemia Hematuria - ? UTI H/o granulomas Plan Plan of Care Agree with Zosyn. Dosed Levoflox times one 08/23 Cont Vanc Add Micafungin Await renal eval F/u labs in am and cults Needs CT chest/abd/pelvis with high acidosis/CK and ? fecal impaction when stable but for now check U/S May need bronch as well 35 mins CC time Thank you # [id number] ANETA SAINZ MD Aug 24, 2016 07:02
[2016-08-24] MEDS ORDERED: EPINEPHRINE VIAL 4 MG in IV NORMAL SALINE 250ML 250 ML IV PRN (07:30)
[2016-08-24] MEDS: IPRATRPIUM/ALBUTEROL 0.5/2.5MG 3 ML NEBU. NEB SCH ×4 (07:45→20:08)
--- NOTE | 2016-08-24 08:01 | PDOC ---
Infectious Disease Note ROS ROS GEN: Denies fevers, chills, sweats HEENT: Denies blurred vision, sore throat CV: Denies chest pain RESP: Denies shortness of air, cough GI: Denies n/v/d NEURO: Denies confusion, dizziness MSK: Denies weakness, joint pain/swelling Vital Sign Vital Signs Vital Signs Date Time Temp Pulse Resp B/P Pulse Ox O2 Delivery O2 Flow Rate FiO2 08/24/16 07:32 80 Ventilator 08/24/16 06:00 128 24 08/24/16 05:00 /64 08/24/16 04:00 100.6 100.6 08/24/16 04:00 5.0 Physical Exam PHYSICAL EXAM GENERAL: NAD, Alert HEENT: PERRL, OC/OP NECK: Supple, no JVD, no LN LUNGS: Clear HEART: S1S2, no gallop, no murmur ABD: Soft, NT, no organomegaly, no rebound EXT: No edema, no cyanosis INFUSION THERAPY NURSE: Alert, oriented x 3, no focal neurologic deficit SKIN: No rash IV: ok Labs Lab Laboratory Tests Test 08/23/16 10:28 08/23/16 11:20 08/23/16 13:43 08/23/16 15:00 White Blood Count 8.1x10^3/uL (4.0-11.0) Red Blood Count 3.91x10^6/uL (4.30-5.70) Hemoglobin 13.5g/dL (13.0-17.5) Hematocrit 42.1% (39.0-53.0) Mean Corpuscular Volume 108fL (79-100) Mean Corpuscular Hemoglobin 35pg (25-35) Mean Corpuscular Hemoglobin Concent 32g/dL (31-37) Red Cell Distribution Width 14.8% (11.5-14.5) Platelet Count 216x10^3/uL (140-400) Neutrophils (%) (Auto) 92% (31-73) Lymphocytes (%) (Auto) 7% (24-48) Monocytes (%) (Auto) 1% (0-9) Eosinophils (%) (Auto) 0% (0-3) Basophils (%) (Auto) 0% (0-3) Neutrophils # (Auto) 7.4x10^3uL (1.8-7.7) Lymphocytes # (Auto) 0.6x10^3/uL (1.0-4.8) Monocytes # (Auto) 0.1x10^3/uL (0.0-1.1) Eosinophils # (Auto) 0.0x10^3/uL (0.0-0.7) Basophils # (Auto) 0.0x10^3/uL (0.0-0.2) Segmented Neutrophils % 16% (35-66) Band Neutrophils % 67% (0-9) Lymphocytes % 9% (24-48) Monocytes % 1% (0-10) Eosinophils % 1% (0-5) Metamyelocytes % 6% (0-0) Toxic Vacuolation Present Platelet Estimate Adequate (ADEQUATE) Polychromasia Slight Macrocytosis Present Prothrombin Time 18.9SEC (11.7-14.0) Prothromb Time International Ratio 1.7 (0.8-1.1) Sodium Level 143mmol/L (136-145) Potassium Level 4.8mmol/L (3.5-5.1) Chloride Level 98mmol/L (98-107) Carbon Dioxide Level 9mmol/L (21-32) Anion Gap 36 (6-14) Blood Urea Nitrogen 38mg/dL (8-26) Creatinine 2.7mg/dL (0.7-1.3) Estimated GFR (Cockcroft-Gault) 29.9 Glucose Level 248mg/dL (70-99) Calcium Level 9.4mg/dL (8.5-10.1) Magnesium Level 2.3mg/dL (1.8-2.4) Total Bilirubin 1.0mg/dL (0.2-1.0) Direct Bilirubin 0.6mg/dL (0.0-0.2) Aspartate Amino Transf (AST/SGOT) 41U/L (15-37) Alanine Aminotransferase (ALT/SGPT) 59U/L (16-63) Alkaline Phosphatase 80U/L (46-116) Creatine Kinase 691U/L (39-308) Creatine Kinase MB (Mass) 1.1ng/mL (0.0-3.6) Creatine Kinase MB Relative Index 0.2% (0-4) Troponin I Quantitative < 0.017ng/mL (0.000-0.055) FX-Thc-B-Type Natriuretic Peptide 2722pg/mL (0-124) Total Protein 8.4g/dL (6.4-8.2) Albumin 2.6g/dL (3.4-5.0) Thyroid Stimulating Hormone (TSH) 11.445uIU/mL (0.358-3.74) Influenza Type A Antigen Negative (NEGATIVE) Influenza Type B Antigen Negative (NEGATIVE) Lactic Acid Level 20.4mmol/L (0.4-2.0) Nasal Screen MRSA (PCR) Negative (Negative) Test 08/23/16 15:15 08/23/16 16:15 08/23/16 17:00 08/23/16 17:30 Sodium Level 147mmol/L (136-145) Potassium Level 4.9mmol/L (3.5-5.1) Chloride Level 105mmol/L (98-107) Carbon Dioxide Level 10mmol/L (21-32) Anion Gap 32 (6-14) Blood Urea Nitrogen 37mg/dL (8-26) Creatinine 2.5mg/dL (0.7-1.3) Estimated GFR (Cockcroft-Gault) 32.7 Glucose Level 197mg/dL (70-99) Lactic Acid Level 19.7mmol/L (0.4-2.0) Calcium Level 8.7mg/dL (8.5-10.1) Free Thyroxine 0.88ng/dL (0.76-1.46) Free Triiodothyronine (T3) pg/mL < 0.50pg/mL (2.18-3.98) O2 Saturation 84% (92-99) Arterial Blood pH 7.14 (7.35-7.45) Arterial Blood pCO2 at Patient Temp 21mmHg (35-46) Arterial Blood pO2 at Patient Temp 61mmHg (75-108) Arterial Blood HCO3 7mmol/L (21-28) Arterial Blood Base Excess -20mmol/L (-3-3) FiO2 21 Urine Collection Type Unknown Urine Color Red Urine Clarity Turbid Urine pH 7.5 Urine Specific [place] 1.015 Urine Protein >=300mg/dL (NEG-TRACE) Urine Glucose (UA) Negativemg/dL (NEG) Urine Ketones (Stick) Tracemg/dL (NEG) Urine Blood Large (NEG) Urine Nitrite Positive (NEG) Urine Bilirubin Small (NEG) Urine Urobilinogen Dipstick 1.0mg/dL (0.2 mg/dL) Urine Leukocyte Esterase Large (NEG) Urine RBC Tntc/HPF (0-2) Urine WBC Tntc/HPF (0-4) Urine Squamous Epithelial Cells None/LPF Urine Bacteria Many/HPF (0-FEW) White Blood Count 10.9x10^3/uL (4.0-11.0) Red Blood Count 2.92x10^6/uL (4.30-5.70) Hemoglobin 10.2g/dL (13.0-17.5) Hematocrit 30.8% (39.0-53.0) Mean Corpuscular Volume 105fL (79-100) Mean Corpuscular Hemoglobin 35pg (25-35) Mean Corpuscular Hemoglobin Concent 33g/dL (31-37) Red Cell Distribution Width 14.3% (11.5-14.5) Platelet Count 140x10^3/uL (140-400) Neutrophils (%) (Auto) 93% (31-73) Lymphocytes (%) (Auto) 6% (24-48) Monocytes (%) (Auto) 1% (0-9) Eosinophils (%) (Auto) 0% (0-3) Basophils (%) (Auto) 0% (0-3) Neutrophils # (Auto) 10.1x10^3uL (1.8-7.7) Lymphocytes # (Auto) 0.6x10^3/uL (1.0-4.8) Monocytes # (Auto) 0.1x10^3/uL (0.0-1.1) Eosinophils # (Auto) 0.0x10^3/uL (0.0-0.7) Basophils # (Auto) 0.0x10^3/uL (0.0-0.2) Prothrombin Time 20.8SEC (11.7-14.0) Prothromb Time International Ratio 1.9 (0.8-1.1) Test 08/23/16 20:00 08/23/16 20:15 08/24/16 01:05 08/24/16 03:48 O2 Saturation 85% (92-99) 82% (92-99) Arterial Blood pH 7.30 (7.35-7.45) 7.23 (7.35-7.45) Arterial Blood pCO2 at Patient Temp 21mmHg (35-46) 42mmHg (35-46) Arterial Blood pO2 at Patient Temp 53mmHg (75-108) 56mmHg (75-108) Arterial Blood HCO3 10mmol/L (21-28) 17mmol/L (21-28) Arterial Blood Base Excess -15mmol/L (-3-3) -10mmol/L (-3-3) FiO2 40 50 White Blood Count 9.5x10^3/uL (4.0-11.0) Red Blood Count 3.03x10^6/uL (4.30-5.70) Hemoglobin 10.5g/dL (13.0-17.5) Hematocrit 32.6% (39.0-53.0) Mean Corpuscular Volume 107fL (79-100) Mean Corpuscular Hemoglobin 35pg (25-35) Mean Corpuscular Hemoglobin Concent 32g/dL (31-37) Red Cell Distribution Width 14.2% (11.5-14.5) Platelet Count 142x10^3/uL (140-400) Sodium Level 148mmol/L (136-145) Potassium Level 4.4mmol/L (3.5-5.1) Chloride Level 109mmol/L (98-107) Carbon Dioxide Level 13mmol/L (21-32) Anion Gap 26 (6-14) Blood Urea Nitrogen 34mg/dL (8-26) Creatinine 2.4mg/dL (0.7-1.3) Estimated GFR (Cockcroft-Gault) 34.3 Glucose Level 182mg/dL (70-99) Lactic Acid Level 14.4mmol/L (0.4-2.0) 12.7mmol/L (0.4-2.0) Calcium Level 7.3mg/dL (8.5-10.1) Troponin I Quantitative 0.031ng/mL (0.000-0.055) 0.055ng/mL (0.000-0.055) Prothrombin Time 21.2SEC (11.7-14.0) Prothromb Time International Ratio 2.0 (0.8-1.1) Arterial Blood pH (Temp corrected) 7.21 Arterial Blood pCO2 (Temp correct) 45mmHg Arterial Blood pO2 (Temp corrected) 61mmHg Test 08/24/16 04:50 08/24/16 05:52 White Blood Count 8.4x10^3/uL (4.0-11.0) Red Blood Count 3.14x10^6/uL (4.30-5.70) Hemoglobin 10.8g/dL (13.0-17.5) Hematocrit 33.3% (39.0-53.0) Mean Corpuscular Volume 106fL (79-100) Mean Corpuscular Hemoglobin 34pg (25-35) Mean Corpuscular Hemoglobin Concent 32g/dL (31-37) Red Cell Distribution Width 14.2% (11.5-14.5) Platelet Count 140x10^3/uL (140-400) Neutrophils (%) (Auto) 92% (31-73) Lymphocytes (%) (Auto) 5% (24-48) Monocytes (%) (Auto) 2% (0-9) Eosinophils (%) (Auto) 0% (0-3) Basophils (%) (Auto) 1% (0-3) Neutrophils # (Auto) 7.8x10^3uL (1.8-7.7) Lymphocytes # (Auto) 0.4x10^3/uL (1.0-4.8) Monocytes # (Auto) 0.2x10^3/uL (0.0-1.1) Eosinophils # (Auto) 0.0x10^3/uL (0.0-0.7) Basophils # (Auto) 0.0x10^3/uL (0.0-0.2) Sodium Level 146mmol/L (136-145) Potassium Level 4.8mmol/L (3.5-5.1) Chloride Level 107mmol/L (98-107) Carbon Dioxide Level 18mmol/L (21-32) Anion Gap 21 (6-14) Blood Urea Nitrogen 38mg/dL (8-26) Creatinine 2.3mg/dL (0.7-1.3) Estimated GFR (Cockcroft-Gault) 36.0 BUN/Creatinine Ratio 17 (6-20) Glucose Level 162mg/dL (70-99) Lactic Acid Level 12.2mmol/L (0.4-2.0) Calcium Level 7.6mg/dL (8.5-10.1) Total Bilirubin 0.9mg/dL (0.2-1.0) Aspartate Amino Transf (AST/SGOT) 76U/L (15-37) Alanine Aminotransferase (ALT/SGPT) 46U/L (16-63) Alkaline Phosphatase 42U/L (46-116) Total Protein 6.0g/dL (6.4-8.2) Albumin 1.7g/dL (3.4-5.0) Albumin/Globulin Ratio 0.4 (1.0-1.7) O2 Saturation 99% (92-99) Arterial Blood pH 7.42 (7.35-7.45) Arterial Blood pCO2 at Patient Temp 23mmHg (35-46) Arterial Blood pO2 at Patient Temp 161mmHg (75-108) Arterial Blood HCO3 15mmol/L (21-28) Arterial Blood Base Excess -8mmol/L (-3-3) FiO2 100 Objective Assessment Severe Sepsis Acute Resp failure - intubated Lactic acidosis MAHAD with h/o hydronephrosis Bandemia Hematuria - ? UTI H/o granulomas Plan Plan of Care Agree with Zosyn. Dosed Levoflox times one 08/23 Cont Vanc Add Micafungin Await renal eval F/u labs in am and cults Needs CT chest/abd/pelvis with high acidosis/CK and ? fecal impaction when stable but for now check U/S May need bronch as well 35 mins CC time Thank you D/w mother # [id number] ANETA SAINZ MD Aug 24, 2016 08:01
--- NOTE | 2016-08-24 08:07 | RAD ---
Abdominal ultrasound, 08/24/2016: History: Sepsis, renal failure, hematuria The gallbladder is within normal limits in size. There is no sonographic evidence of cholelithiasis. The gallbladder barragan are not thickened. No bile duct dilatation is seen. The visualized portions of the liver, pancreas and spleen are unremarkable. The abdominal aorta is of normal caliber. The inferior vena cava is unremarkable. There is severe bilateral hydronephrosis. No renal mass is seen. The urinary bladder is not adequately delineated due to decompression by a Bowling catheter. IMPRESSION: Severe bilateral hydronephrosis. CT scanning of the abdomen and pelvis may be useful for further evaluation
[2016-08-24] MEDS: LEVETIRACETAM 500 MG in IV NORMAL SALINE 100ML 100 ML IV SCH ×2 (08:13→20:52)
[2016-08-24] MEDS: NOREPINEPHRINE VIAL 8 MG in IV NORMAL SALINE 250ML 250 ML IV PRN ×2 (08:13→13:21)
[2016-08-24] MEDS: MICAFUNGIN 100 MG in IV DEXTROSE 5% 100 ML IV SCH (08:24)
[2016-08-24] MEDS: ASPIRIN 325 MG TABLET PEG SCH (08:39)
[2016-08-24] MEDS: VITAMIN B COMPLEX TABLET. PO SCH (08:39)
[2016-08-24] MEDS: CHOLECALCIFEROL (VITAMIN D3) 1,000 UNIT TABLET PO SCH (08:39)
[2016-08-24] MEDS: CHLORHEXIDINE 0.12% 15 ML MOUTHWASH. MM SCH ×2 (08:44→20:52)
[2016-08-24] MEDS: PANTOPRAZOLE IV PUSH 40 MG VIAL. IVP SCH (08:45)
[2016-08-24] MEDS: VANCOMYCIN PER PHARMACY MC PRN ×2 (09:39→09:41)
[2016-08-24 09:40] LABS: HCO3 ABG 12 mmol/L (21-28); PCO2 ABG 21 mmHg (35-46); PH ABG 7.39 (7.35-7.45); PO2 ABG 157 mmHg (75-108); SAT O2 ABG 99 % (92-99)
--- NOTE | 2016-08-24 09:51 | PDOC ---
PULMONARY PROGRESS NOTES Subjective sedated Vitals Vital Signs Date Time Temp Pulse Resp B/P Pulse Ox O2 Delivery O2 Flow Rate FiO2 08/24/16 09:18 100 Ventilator 08/24/16 09:00 113 20 145/97 08/24/16 08:00 99.1 99.1 08/24/16 04:00 5.0 Lungs: Clear Cardiovascular: S1, S2 Abdomen: Soft Extremities: Other (some edema) Skin: Warm Labs Laboratory Tests Test 08/23/16 10:28 08/23/16 11:20 08/23/16 13:43 08/23/16 15:00 White Blood Count 8.1x10^3/uL (4.0-11.0) Red Blood Count 3.91x10^6/uL (4.30-5.70) Hemoglobin 13.5g/dL (13.0-17.5) Hematocrit 42.1% (39.0-53.0) Mean Corpuscular Volume 108fL (79-100) Mean Corpuscular Hemoglobin 35pg (25-35) Mean Corpuscular Hemoglobin Concent 32g/dL (31-37) Red Cell Distribution Width 14.8% (11.5-14.5) Platelet Count 216x10^3/uL (140-400) Neutrophils (%) (Auto) 92% (31-73) Lymphocytes (%) (Auto) 7% (24-48) Monocytes (%) (Auto) 1% (0-9) Eosinophils (%) (Auto) 0% (0-3) Basophils (%) (Auto) 0% (0-3) Neutrophils # (Auto) 7.4x10^3uL (1.8-7.7) Lymphocytes # (Auto) 0.6x10^3/uL (1.0-4.8) Monocytes # (Auto) 0.1x10^3/uL (0.0-1.1) Eosinophils # (Auto) 0.0x10^3/uL (0.0-0.7) Basophils # (Auto) 0.0x10^3/uL (0.0-0.2) Segmented Neutrophils % 16% (35-66) Band Neutrophils % 67% (0-9) Lymphocytes % 9% (24-48) Monocytes % 1% (0-10) Eosinophils % 1% (0-5) Metamyelocytes % 6% (0-0) Toxic Vacuolation Present Platelet Estimate Adequate (ADEQUATE) Polychromasia Slight Macrocytosis Present Prothrombin Time 18.9SEC (11.7-14.0) Prothromb Time International Ratio 1.7 (0.8-1.1) Sodium Level 143mmol/L (136-145) Potassium Level 4.8mmol/L (3.5-5.1) Chloride Level 98mmol/L (98-107) Carbon Dioxide Level 9mmol/L (21-32) Anion Gap 36 (6-14) Blood Urea Nitrogen 38mg/dL (8-26) Creatinine 2.7mg/dL (0.7-1.3) Estimated GFR (Cockcroft-Gault) 29.9 Glucose Level 248mg/dL (70-99) Calcium Level 9.4mg/dL (8.5-10.1) Magnesium Level 2.3mg/dL (1.8-2.4) Total Bilirubin 1.0mg/dL (0.2-1.0) Direct Bilirubin 0.6mg/dL (0.0-0.2) Aspartate Amino Transf (AST/SGOT) 41U/L (15-37) Alanine Aminotransferase (ALT/SGPT) 59U/L (16-63) Alkaline Phosphatase 80U/L (46-116) Creatine Kinase 691U/L (39-308) Creatine Kinase MB (Mass) 1.1ng/mL (0.0-3.6) Creatine Kinase MB Relative Index 0.2% (0-4) Troponin I Quantitative < 0.017ng/mL (0.000-0.055) OT-Vxq-I-Type Natriuretic Peptide 2722pg/mL (0-124) Total Protein 8.4g/dL (6.4-8.2) Albumin 2.6g/dL (3.4-5.0) Thyroid Stimulating Hormone (TSH) 11.445uIU/mL (0.358-3.74) Influenza Type A Antigen Negative (NEGATIVE) Influenza Type B Antigen Negative (NEGATIVE) Lactic Acid Level 20.4mmol/L (0.4-2.0) Nasal Screen MRSA (PCR) Negative (Negative) Test 08/23/16 15:15 08/23/16 16:15 08/23/16 17:00 08/23/16 17:30 Sodium Level 147mmol/L (136-145) Potassium Level 4.9mmol/L (3.5-5.1) Chloride Level 105mmol/L (98-107) Carbon Dioxide Level 10mmol/L (21-32) Anion Gap 32 (6-14) Blood Urea Nitrogen 37mg/dL (8-26) Creatinine 2.5mg/dL (0.7-1.3) Estimated GFR (Cockcroft-Gault) 32.7 Glucose Level 197mg/dL (70-99) Lactic Acid Level 19.7mmol/L (0.4-2.0) Calcium Level 8.7mg/dL (8.5-10.1) Free Thyroxine 0.88ng/dL (0.76-1.46) Free Triiodothyronine (T3) pg/mL < 0.50pg/mL (2.18-3.98) O2 Saturation 84% (92-99) Arterial Blood pH 7.14 (7.35-7.45) Arterial Blood pCO2 at Patient Temp 21mmHg (35-46) Arterial Blood pO2 at Patient Temp 61mmHg (75-108) Arterial Blood HCO3 7mmol/L (21-28) Arterial Blood Base Excess -20mmol/L (-3-3) FiO2 21 Urine Collection Type Unknown Urine Color Red Urine Clarity Turbid Urine pH 7.5 Urine Specific [place] 1.015 Urine Protein >=300mg/dL (NEG-TRACE) Urine Glucose (UA) Negativemg/dL (NEG) Urine Ketones (Stick) Tracemg/dL (NEG) Urine Blood Large (NEG) Urine Nitrite Positive (NEG) Urine Bilirubin Small (NEG) Urine Urobilinogen Dipstick 1.0mg/dL (0.2 mg/dL) Urine Leukocyte Esterase Large (NEG) Urine RBC Tntc/HPF (0-2) Urine WBC Tntc/HPF (0-4) Urine Squamous Epithelial Cells None/LPF Urine Bacteria Many/HPF (0-FEW) White Blood Count 10.9x10^3/uL (4.0-11.0) Red Blood Count 2.92x10^6/uL (4.30-5.70) Hemoglobin 10.2g/dL (13.0-17.5) Hematocrit 30.8% (39.0-53.0) Mean Corpuscular Volume 105fL (79-100) Mean Corpuscular Hemoglobin 35pg (25-35) Mean Corpuscular Hemoglobin Concent 33g/dL (31-37) Red Cell Distribution Width 14.3% (11.5-14.5) Platelet Count 140x10^3/uL (140-400) Neutrophils (%) (Auto) 93% (31-73) Lymphocytes (%) (Auto) 6% (24-48) Monocytes (%) (Auto) 1% (0-9) Eosinophils (%) (Auto) 0% (0-3) Basophils (%) (Auto) 0% (0-3) Neutrophils # (Auto) 10.1x10^3uL (1.8-7.7) Lymphocytes # (Auto) 0.6x10^3/uL (1.0-4.8) Monocytes # (Auto) 0.1x10^3/uL (0.0-1.1) Eosinophils # (Auto) 0.0x10^3/uL (0.0-0.7) Basophils # (Auto) 0.0x10^3/uL (0.0-0.2) Prothrombin Time 20.8SEC (11.7-14.0) Prothromb Time International Ratio 1.9 (0.8-1.1) Test 08/23/16 20:00 08/23/16 20:15 08/24/16 01:05 08/24/16 03:48 O2 Saturation 85% (92-99) 82% (92-99) Arterial Blood pH 7.30 (7.35-7.45) 7.23 (7.35-7.45) Arterial Blood pCO2 at Patient Temp 21mmHg (35-46) 42mmHg (35-46) Arterial Blood pO2 at Patient Temp 53mmHg (75-108) 56mmHg (75-108) Arterial Blood HCO3 10mmol/L (21-28) 17mmol/L (21-28) Arterial Blood Base Excess -15mmol/L (-3-3) -10mmol/L (-3-3) FiO2 40 50 White Blood Count 9.5x10^3/uL (4.0-11.0) Red Blood Count 3.03x10^6/uL (4.30-5.70) Hemoglobin 10.5g/dL (13.0-17.5) Hematocrit 32.6% (39.0-53.0) Mean Corpuscular Volume 107fL (79-100) Mean Corpuscular Hemoglobin 35pg (25-35) Mean Corpuscular Hemoglobin Concent 32g/dL (31-37) Red Cell Distribution Width 14.2% (11.5-14.5) Platelet Count 142x10^3/uL (140-400) Sodium Level 148mmol/L (136-145) Potassium Level 4.4mmol/L (3.5-5.1) Chloride Level 109mmol/L (98-107) Carbon Dioxide Level 13mmol/L (21-32) Anion Gap 26 (6-14) Blood Urea Nitrogen 34mg/dL (8-26) Creatinine 2.4mg/dL (0.7-1.3) Estimated GFR (Cockcroft-Gault) 34.3 Glucose Level 182mg/dL (70-99) Lactic Acid Level 14.4mmol/L (0.4-2.0) 12.7mmol/L (0.4-2.0) Calcium Level 7.3mg/dL (8.5-10.1) Troponin I Quantitative 0.031ng/mL (0.000-0.055) 0.055ng/mL (0.000-0.055) Prothrombin Time 21.2SEC (11.7-14.0) Prothromb Time International Ratio 2.0 (0.8-1.1) Arterial Blood pH (Temp corrected) 7.21 Arterial Blood pCO2 (Temp correct) 45mmHg Arterial Blood pO2 (Temp corrected) 61mmHg Test 08/24/16 04:50 08/24/16 05:52 White Blood Count 8.4x10^3/uL (4.0-11.0) Red Blood Count 3.14x10^6/uL (4.30-5.70) Hemoglobin 10.8g/dL (13.0-17.5) Hematocrit 33.3% (39.0-53.0) Mean Corpuscular Volume 106fL (79-100) Mean Corpuscular Hemoglobin 34pg (25-35) Mean Corpuscular Hemoglobin Concent 32g/dL (31-37) Red Cell Distribution Width 14.2% (11.5-14.5) Platelet Count 140x10^3/uL (140-400) Neutrophils (%) (Auto) 92% (31-73) Lymphocytes (%) (Auto) 5% (24-48) Monocytes (%) (Auto) 2% (0-9) Eosinophils (%) (Auto) 0% (0-3) Basophils (%) (Auto) 1% (0-3) Neutrophils # (Auto) 7.8x10^3uL (1.8-7.7) Lymphocytes # (Auto) 0.4x10^3/uL (1.0-4.8) Monocytes # (Auto) 0.2x10^3/uL (0.0-1.1) Eosinophils # (Auto) 0.0x10^3/uL (0.0-0.7) Basophils # (Auto) 0.0x10^3/uL (0.0-0.2) Sodium Level 146mmol/L (136-145) Potassium Level 4.8mmol/L (3.5-5.1) Chloride Level 107mmol/L (98-107) Carbon Dioxide Level 18mmol/L (21-32) Anion Gap 21 (6-14) Blood Urea Nitrogen 38mg/dL (8-26) Creatinine 2.3mg/dL (0.7-1.3) Estimated GFR (Cockcroft-Gault) 36.0 BUN/Creatinine Ratio 17 (6-20) Glucose Level 162mg/dL (70-99) Lactic Acid Level 12.2mmol/L (0.4-2.0) Calcium Level 7.6mg/dL (8.5-10.1) Total Bilirubin 0.9mg/dL (0.2-1.0) Aspartate Amino Transf (AST/SGOT) 76U/L (15-37) Alanine Aminotransferase (ALT/SGPT) 46U/L (16-63) Alkaline Phosphatase 42U/L (46-116) Total Protein 6.0g/dL (6.4-8.2) Albumin 1.7g/dL (3.4-5.0) Albumin/Globulin Ratio 0.4 (1.0-1.7) O2 Saturation 99% (92-99) Arterial Blood pH 7.42 (7.35-7.45) Arterial Blood pCO2 at Patient Temp 23mmHg (35-46) Arterial Blood pO2 at Patient Temp 161mmHg (75-108) Arterial Blood HCO3 15mmol/L (21-28) Arterial Blood Base Excess -8mmol/L (-3-3) FiO2 100 Laboratory Tests Test 08/23/16 10:28 08/23/16 11:20 08/23/16 13:43 08/23/16 15:00 White Blood Count 8.1x10^3/uL (4.0-11.0) Red Blood Count 3.91x10^6/uL (4.30-5.70) Hemoglobin 13.5g/dL (13.0-17.5) Hematocrit 42.1% (39.0-53.0) Mean Corpuscular Volume 108fL (79-100) Mean Corpuscular Hemoglobin 35pg (25-35) Mean Corpuscular Hemoglobin Concent 32g/dL (31-37) Red Cell Distribution Width 14.8% (11.5-14.5) Platelet Count 216x10^3/uL (140-400) Neutrophils (%) (Auto) 92% (31-73) Lymphocytes (%) (Auto) 7% (24-48) Monocytes (%) (Auto) 1% (0-9) Eosinophils (%) (Auto) 0% (0-3) Basophils (%) (Auto) 0% (0-3) Neutrophils # (Auto) 7.4x10^3uL (1.8-7.7) Lymphocytes # (Auto) 0.6x10^3/uL (1.0-4.8) Monocytes # (Auto) 0.1x10^3/uL (0.0-1.1) Eosinophils # (Auto) 0.0x10^3/uL (0.0-0.7) Basophils # (Auto) 0.0x10^3/uL (0.0-0.2) Segmented Neutrophils % 16% (35-66) Band Neutrophils % 67% (0-9) Lymphocytes % 9% (24-48) Monocytes % 1% (0-10) Eosinophils % 1% (0-5) Metamyelocytes % 6% (0-0) Toxic Vacuolation Present Platelet Estimate Adequate (ADEQUATE) Polychromasia Slight Macrocytosis Present Prothrombin Time 18.9SEC (11.7-14.0) Prothromb Time International Ratio 1.7 (0.8-1.1) Sodium Level 143mmol/L (136-145) Potassium Level 4.8mmol/L (3.5-5.1) Chloride Level 98mmol/L (98-107) Carbon Dioxide Level 9mmol/L (21-32) Anion Gap 36 (6-14) Blood Urea Nitrogen 38mg/dL (8-26) Creatinine 2.7mg/dL (0.7-1.3) Estimated GFR (Cockcroft-Gault) 29.9 Glucose Level 248mg/dL (70-99) Calcium Level 9.4mg/dL (8.5-10.1) Magnesium Level 2.3mg/dL (1.8-2.4) Total Bilirubin 1.0mg/dL (0.2-1.0) Direct Bilirubin 0.6mg/dL (0.0-0.2) Aspartate Amino Transf (AST/SGOT) 41U/L (15-37) Alanine Aminotransferase (ALT/SGPT) 59U/L (16-63) Alkaline Phosphatase 80U/L (46-116) Creatine Kinase 691U/L (39-308) Creatine Kinase MB (Mass) 1.1ng/mL (0.0-3.6) Creatine Kinase MB Relative Index 0.2% (0-4) Troponin I Quantitative < 0.017ng/mL (0.000-0.055) KN-Nud-H-Type Natriuretic Peptide 2722pg/mL (0-124) Total Protein 8.4g/dL (6.4-8.2) Albumin 2.6g/dL (3.4-5.0) Thyroid Stimulating Hormone (TSH) 11.445uIU/mL (0.358-3.74) Influenza Type A Antigen Negative (NEGATIVE) Influenza Type B Antigen Negative (NEGATIVE) Lactic Acid Level 20.4mmol/L (0.4-2.0) Nasal Screen MRSA (PCR) Negative (Negative) Test 08/23/16 15:15 08/23/16 16:15 08/23/16 17:00 08/23/16 17:30 Sodium Level 147mmol/L (136-145) Potassium Level 4.9mmol/L (3.5-5.1) Chloride Level 105mmol/L (98-107) Carbon Dioxide Level 10mmol/L (21-32) Anion Gap 32 (6-14) Blood Urea Nitrogen 37mg/dL (8-26) Creatinine 2.5mg/dL (0.7-1.3) Estimated GFR (Cockcroft-Gault) 32.7 Glucose Level 197mg/dL (70-99) Lactic Acid Level 19.7mmol/L (0.4-2.0) Calcium Level 8.7mg/dL (8.5-10.1) Free Thyroxine 0.88ng/dL (0.76-1.46) Free Triiodothyronine (T3) pg/mL < 0.50pg/mL (2.18-3.98) O2 Saturation 84% (92-99) Arterial Blood pH 7.14 (7.35-7.45) Arterial Blood pCO2 at Patient Temp 21mmHg (35-46) Arterial Blood pO2 at Patient Temp 61mmHg (75-108) Arterial Blood HCO3 7mmol/L (21-28) Arterial Blood Base Excess -20mmol/L (-3-3) FiO2 21 Urine Collection Type Unknown Urine Color Red Urine Clarity Turbid Urine pH 7.5 Urine Specific [place] 1.015 Urine Protein >=300mg/dL (NEG-TRACE) Urine Glucose (UA) Negativemg/dL (NEG) Urine Ketones (Stick) Tracemg/dL (NEG) Urine Blood Large (NEG) Urine Nitrite Positive (NEG) Urine Bilirubin Small (NEG) Urine Urobilinogen Dipstick 1.0mg/dL (0.2 mg/dL) Urine Leukocyte Esterase Large (NEG) Urine RBC Tntc/HPF (0-2) Urine WBC Tntc/HPF (0-4) Urine Squamous Epithelial Cells None/LPF Urine Bacteria Many/HPF (0-FEW) White Blood Count 10.9x10^3/uL (4.0-11.0) Red Blood Count 2.92x10^6/uL (4.30-5.70) Hemoglobin 10.2g/dL (13.0-17.5) Hematocrit 30.8% (39.0-53.0) Mean Corpuscular Volume 105fL (79-100) Mean Corpuscular Hemoglobin 35pg (25-35) Mean Corpuscular Hemoglobin Concent 33g/dL (31-37) Red Cell Distribution Width 14.3% (11.5-14.5) Platelet Count 140x10^3/uL (140-400) Neutrophils (%) (Auto) 93% (31-73) Lymphocytes (%) (Auto) 6% (24-48) Monocytes (%) (Auto) 1% (0-9) Eosinophils (%) (Auto) 0% (0-3) Basophils (%) (Auto) 0% (0-3) Neutrophils # (Auto) 10.1x10^3uL (1.8-7.7) Lymphocytes # (Auto) 0.6x10^3/uL (1.0-4.8) Monocytes # (Auto) 0.1x10^3/uL (0.0-1.1) Eosinophils # (Auto) 0.0x10^3/uL (0.0-0.7) Basophils # (Auto) 0.0x10^3/uL (0.0-0.2) Prothrombin Time 20.8SEC (11.7-14.0) Prothromb Time International Ratio 1.9 (0.8-1.1) Test 08/23/16 20:00 08/23/16 20:15 08/24/16 01:05 08/24/16 03:48 O2 Saturation 85% (92-99) 82% (92-99) Arterial Blood pH 7.30 (7.35-7.45) 7.23 (7.35-7.45) Arterial Blood pCO2 at Patient Temp 21mmHg (35-46) 42mmHg (35-46) Arterial Blood pO2 at Patient Temp 53mmHg (75-108) 56mmHg (75-108) Arterial Blood HCO3 10mmol/L (21-28) 17mmol/L (21-28) Arterial Blood Base Excess -15mmol/L (-3-3) -10mmol/L (-3-3) FiO2 40 50 White Blood Count 9.5x10^3/uL (4.0-11.0) Red Blood Count 3.03x10^6/uL (4.30-5.70) Hemoglobin 10.5g/dL (13.0-17.5) Hematocrit 32.6% (39.0-53.0) Mean Corpuscular Volume 107fL (79-100) Mean Corpuscular Hemoglobin 35pg (25-35) Mean Corpuscular Hemoglobin Concent 32g/dL (31-37) Red Cell Distribution Width 14.2% (11.5-14.5) Platelet Count 142x10^3/uL (140-400) Sodium Level 148mmol/L (136-145) Potassium Level 4.4mmol/L (3.5-5.1) Chloride Level 109mmol/L (98-107) Carbon Dioxide Level 13mmol/L (21-32) Anion Gap 26 (6-14) Blood Urea Nitrogen 34mg/dL (8-26) Creatinine 2.4mg/dL (0.7-1.3) Estimated GFR (Cockcroft-Gault) 34.3 Glucose Level 182mg/dL (70-99) Lactic Acid Level 14.4mmol/L (0.4-2.0) 12.7mmol/L (0.4-2.0) Calcium Level 7.3mg/dL (8.5-10.1) Troponin I Quantitative 0.031ng/mL (0.000-0.055) 0.055ng/mL (0.000-0.055) Prothrombin Time 21.2SEC (11.7-14.0) Prothromb Time International Ratio 2.0 (0.8-1.1) Arterial Blood pH (Temp corrected) 7.21 Arterial Blood pCO2 (Temp correct) 45mmHg Arterial Blood pO2 (Temp corrected) 61mmHg Test 08/24/16 04:50 08/24/16 05:52 White Blood Count 8.4x10^3/uL (4.0-11.0) Red Blood Count 3.14x10^6/uL (4.30-5.70) Hemoglobin 10.8g/dL (13.0-17.5) Hematocrit 33.3% (39.0-53.0) Mean Corpuscular Volume 106fL (79-100) Mean Corpuscular Hemoglobin 34pg (25-35) Mean Corpuscular Hemoglobin Concent 32g/dL (31-37) Red Cell Distribution Width 14.2% (11.5-14.5) Platelet Count 140x10^3/uL (140-400) Neutrophils (%) (Auto) 92% (31-73) Lymphocytes (%) (Auto) 5% (24-48) Monocytes (%) (Auto) 2% (0-9) Eosinophils (%) (Auto) 0% (0-3) Basophils (%) (Auto) 1% (0-3) Neutrophils # (Auto) 7.8x10^3uL (1.8-7.7) Lymphocytes # (Auto) 0.4x10^3/uL (1.0-4.8) Monocytes # (Auto) 0.2x10^3/uL (0.0-1.1) Eosinophils # (Auto) 0.0x10^3/uL (0.0-0.7) Basophils # (Auto) 0.0x10^3/uL (0.0-0.2) Sodium Level 146mmol/L (136-145) Potassium Level 4.8mmol/L (3.5-5.1) Chloride Level 107mmol/L (98-107) Carbon Dioxide Level 18mmol/L (21-32) Anion Gap 21 (6-14) Blood Urea Nitrogen 38mg/dL (8-26) Creatinine 2.3mg/dL (0.7-1.3) Estimated GFR (Cockcroft-Gault) 36.0 BUN/Creatinine Ratio 17 (6-20) Glucose Level 162mg/dL (70-99) Lactic Acid Level 12.2mmol/L (0.4-2.0) Calcium Level 7.6mg/dL (8.5-10.1) Total Bilirubin 0.9mg/dL (0.2-1.0) Aspartate Amino Transf (AST/SGOT) 76U/L (15-37) Alanine Aminotransferase (ALT/SGPT) 46U/L (16-63) Alkaline Phosphatase 42U/L (46-116) Total Protein 6.0g/dL (6.4-8.2) Albumin 1.7g/dL (3.4-5.0) Albumin/Globulin Ratio 0.4 (1.0-1.7) O2 Saturation 99% (92-99) Arterial Blood pH 7.42 (7.35-7.45) Arterial Blood pCO2 at Patient Temp 23mmHg (35-46) Arterial Blood pO2 at Patient Temp 161mmHg (75-108) Arterial Blood HCO3 15mmol/L (21-28) Arterial Blood Base Excess -8mmol/L (-3-3) FiO2 100 Medications Active Scripts Medications Dose Route/Sig Days Date Category Milk Of Magnesia (Magnesium Hydroxide) 2,400 Mg/10 Ml Oral.susp 2,400 Mg PO DAILY PRN 08/21/15 Reported Dulcolax (Bisacodyl) 10 Mg Supp.rect 10 Mg RC PRN DAILY PRN 08/21/15 Reported Aspirin 325 Mg Tablet 1 Tab PEG DAILY 08/02/15 Reported Tylenol (Acetaminophen) 325 Mg Tablet 2 Tab PO PRN Q6HRS PRN 08/02/15 Reported Vitamin B Complex 1 Each Tablet 1 Tab PO DAILY 07/25/15 Reported Vitamin D3 (Cholecalciferol (Vitamin D3)) 1,000 Unit Tablet 2,000 Unit PO DAILY 07/25/15 Reported Keppra (Levetiracetam) 500 Mg Tablet 500 Mg PO BID 07/25/15 Reported Impression . IMPRESSION: 1. Acute hypoxic respiratory failure secondary septic shock 2. Septic shock cultures pending 3. Abnormal chest x-ray with initial x-ray showing infiltrate 4. Acute severe metabolic acidosis with severe lactic acidosis secondary to sepsis/septic shock. MAHAD contributing to metabolic acidosis. 5. Hematuria 6. Urinary tract infection. 7. Coagulopathy, most likely related to early disseminated intravascular coagulation. 8. Underlying Down's syndrome 9. Dysphagia S/P PEG Plan . 1. AC mode ABG noted 2. Broad spectrum antibiotics per ID 3. follow nephro rec 4. nutrition per PEG 5. Titrate pressors continue vasopressin 6. Monitor PT and INR. 7. Monitor platelets. 8. Add Solucortef 9. Follow Urology recommendations. Total CCt 30 minutes ERINN HORN MD Aug 24, 2016 09:51
[2016-08-24 10:03] LABS: FIO2 ABG 80
--- NOTE | 2016-08-24 10:34 | PDOC2 ---
CONSULT Date of Consult Date of Consult DATE: 08/24/16 TIME: 10:30 Reason for Consult Reason for Consult: MAHAD Referring Physician Referring Physician: JOELLEN Identification/Chief Complaint Chief Complaint CONFUSION, SOB Source Source: Chart review History of Present Illness Reason for Visit: THIS IS A 55 YR OLD ADMITTED WITH CONFUSION, SOB AND RESP FAILURE. HE IS NOTED TO HAVE PNEUMONIA AND SEPSIS. NO CKD NOTED BUT HIS CR IS 2.5 WITH HYPERNATREMIA AND METABOLIC ACIDOSIS. HE IS ALSO HYPOTENSIVE AND CURRENTLY INTUBATED Past Medical History CENTRAL NERVOUS SYSTEM: CVA, Seizure, Other (downs) Musculoskeletal: Osteoarthritis Endocrine: Diabetes Past Surgical History Past Surgical History: Other (PEG), No pertinent history Family History Family History: Family History Unknown Social History No ALCOHOL: none Drugs: None Lives: with Family Current Problem List Problem List Problems Medical Problems: (1) HAP (hospital-acquired pneumonia) Status: Acute (2) Pneumonia Status: Acute Current Medications Current Medications Current Medications Sodium Chloride 1,000 ml @ 1,000 mls/hr 1X ONCE IV Last administered on 11:16; Start 08/23/16 at 11:15; Stop 08/23/16 at 12:14; Status DC Sodium Chloride (Iv Sodium Chloride 0.9% 1000ml Bag) 1,000 ml @ 1,000 mls/hr 1X ONCE IV Last administered on 08/23/16 11:30; Start 08/23/16 at 11:30; Stop 08/23/16 at 12:29; Status DC Vancomycin HCl (Vanco Per Pharmacy) 1 each PRN DAILY PRN MC SEE COMMENTS Last administered on 08/24/16 09:41; Start 08/23/16 at 11:30 Piperacillin Sod/ Tazobactam Sod 1 each 1 each PRN DAILY PRN MC SEE COMMENTS; Start 08/23/16 at 11:30 Levofloxacin/ Dextrose 100 ml @ 100 mls/hr 1X ONCE IV Last administered on 12:58; Start 08/23/16 at 11:30; Stop 08/23/16 at 12:29; Status DC Piperacillin Sod/ Tazobactam Sod 4.5 gm/Sodium Chloride 100 ml @ 200 mls/hr 1X ONCE IV Last administered on 08/23/16 12:00; Start 08/23/16 at 12:00; Stop 08/23/16 at 12:29; Status DC Vancomycin HCl 1.5 gm/Sodium Chloride 500 ml @ 250 mls/hr 1X ONCE IV Last administered on 08/23/16 12:30; Start 08/23/16 at 12:30; Stop 08/23/16 at 14:29 ; Status DC Sodium Chloride 1,000 ml @ 1,000 mls/hr 1X ONCE IV Last administered on 12:46; Start 08/23/16 at 12:30; Stop 08/23/16 at 13:29; Status DC Piperacillin Sod/ Tazobactam Sod 3.375 gm/Sodium Chloride 50 ml @ 100 mls/hr Q6HRS IV Last administered on 08/24/16 06:14; Start 08/23/16 at 18:00 Vancomycin HCl/ Sodium Chloride (Iv Sodium Chloride 0.9% 250ml) 250 ml @ 250 mls/hr Q24H IV ; Start 08/24/16 at 13:00; Status Cancel Vancomycin HCl 1 each 1X ONCE MC ; Start 08/25/16 at 12:30; Stop 08/25/16 at 12: 31 Labetalol HCl (Normodyne) 10 mg PRN Q2HR PRN IVP HYPERTENSION, SEE COMMENTS; Start 08/23/16 at 15:45 Aspirin (Gravie Aspirin) 325 mg DAILY PEG ; Start 08/24/16 at 09:00 Bisacodyl (Dulcolax Supp) 10 mg PRN DAILY PRN RC CONSTIPATION; Start 08/23/16 at 15:45 Vitamin D (Vitamin D3) 2,000 unit DAILY PO ; Start 08/24/16 at 09:00 Levetiracetam (Keppra) 500 mg BID PO ; Start 08/23/16 at 21:00; Stop 08/23/16 at 21:00; Status DC Vitamin B Complex (Hector B) 1 tab DAILY PO ; Start 08/24/16 at 09:00 Magnesium Hydroxide (Milk Of Magnesia) 2,400 mg PRN DAILY PRN PO CONSTIPATION; Start 08/23/16 at 15:45 Acetaminophen 500 mg 500 mg PRN Q6HRS PRN PO MILD PAIN / TEMP; Start 08/23/16 at 15:45 Levetiracetam/ Sodium Chloride (Keppra/Iv Sodium Chloride 0.9% 100ml) 105 ml @ 400 mls/hr Q12HR IV Last administered on 08/24/16 08:13; Start 08/23/16 at 21: 00 Pantoprazole Sodium (Protonix Vial) 40 mg DAILYAC IVP Last administered on 08/24 08:45; Start 08/24/16 at 07:30 Heparin Sodium (Porcine) 5000 unit 5,000 unit Q8HRS SQ ; Start 08/23/16 at 22:00 ; Stop 08/23/16 at 22:00; Status DC Sodium Bicarbonate/ Dextrose 1,150 ml @ 150 mls/hr Q7H40M IV Last administered on 08/24/16 09:51; Start 08/23/16 at 16:30 Sodium Bicarbonate 50 meq 1X ONCE IV Last administered on 08/23/16 16:24; Start 08/23/16 at 16:15; Stop 08/23/16 at 16:17; Status DC Albuterol/ Ipratropium 3 ml 3 ml RTQID NEB Last administered on 08/24/16 07:45 ; Start 08/23/16 at 20:00 Vancomycin HCl 750 mg/Sodium Chloride 250 ml @ 250 mls/hr Q24H IV ; Start 08/24 at 13:00 Norepinephrine Bitartrate 8 mg/ Sodium Chloride 258 ml @ 0 mls/hr CONT PRN IV SEE I/O RECORD Last administered on 08/24/16 08:13; Start 08/23/16 at 18:15 Sodium Chloride (Iv Sodium Chloride 0.9% 1000ml Bag) 1,000 ml @ 500 mls/hr Q2H IV Last administered on 08/23/16 17:00; Start 08/23/16 at 18:30; Stop at 20:29; Status DC Hydrocortisone Sodium Succinate (Solu-Cortef) 100 mg Q8HRS IV Last administered on 08/24/16 06:20; Start 08/23/16 at 22:30 Succinylcholine Chloride (Anectine) 200 mg STK-MED ONCE .ROUTE ; Start 08/24/16 at 04:15; Stop 08/24/16 at 04:16; Status DC Etomidate 20 mg 20 mg STK-MED ONCE IV ; Start 08/24/16 at 04:15; Stop 08/24/16 at 04:16; Status DC Fentanyl Citrate (Fentanyl 600 Mcg/30 ml [employer]IO [employer]LECT[employer] OFF[employer]ER) 30 ml @ 0 mls/hr CONT PRN IV PROTOCOL; Start 08/24/16 at 04:45 Fentanyl Citrate (Fentanyl 2ml Vial) 25 mcg PRN Q1HR PRN IV COMM; Start at 04:45 Fentanyl Citrate (Fentanyl 2ml Vial) 50 mcg PRN Q1HR PRN IV COMM; Start at 04:45 Chlorhexidine Gluconate 15 ml 15 ml BID MM Last administered on 08/24/16 08:44 ; Start 08/24/16 at 09:00 Midazolam HCl 100 ml @ 0 mls/hr CONT PRN IV PER PROTOCOL Last administered on 06:13; Start 08/24/16 at 04:45 Midazolam HCl 100 ml @ As Directed STK-MED ONCE IV ; Start 08/24/16 at 04:52; Stop 08/24/16 at 04:53; Status DC Sodium Chloride 1,000 ml @ 150 mls/hr Q6H40M IV Last administered on 06:13; Start 08/24/16 at 05:45; Stop 08/24/16 at 09:59; Status DC Vasopressin 40 unit/Dextrose 102 ml @ 6 mls/hr 1X ONCE IV Last administered on 08/24/16 06:12; Start 08/24/16 at 06:00; Stop 08/24/16 at 22:59 Phenylephrine HCl 20 mg/Sodium Chloride 252 ml @ 0 mls/hr CONT PRN IV SEE I/O RECORD Last administered on 08/24/16 07:28; Start 08/24/16 at 05:45 Albumin Human 500 ml @ 125 mls/hr 1X ONCE IV Last administered on 08/24/16 06:20; Start 08/24/16 at 05:45; Stop 08/24/16 at 09:44; Status DC Micafungin Sodium 100 mg/Dextrose 100 ml @ 100 mls/hr Q24H IV Last administered on 08/24/16 08:24; Start 08/24/16 at 09:00 Epinephrine HCl/ Sodium Chloride (Adrenalin/Iv Sodium Chloride 0.9% 250ml) 254 ml @ 0 mls/hr CONT PRN IV SEE I/O RECORD; Start 08/24/16 at 07:30 Active Scripts Active Reported Milk Of Magnesia (Magnesium Hydroxide) 2,400 Mg/10 Ml Oral.susp 2,400 Mg PO DAILY PRN Dulcolax (Bisacodyl) 10 Mg Supp.rect 10 Mg RC PRN DAILY PRN Aspirin 325 Mg Tablet 1 Tab PEG DAILY Tylenol (Acetaminophen) 325 Mg Tablet 2 Tab PO PRN Q6HRS PRN Vitamin B Complex 1 Each Tablet 1 Tab PO DAILY Vitamin D3 (Cholecalciferol (Vitamin D3)) 1,000 Unit Tablet 2,000 Unit PO DAILY Keppra (Levetiracetam) 500 Mg Tablet 500 Mg PO BID Allergies Allergies: Coded Allergies: No Known Drug Allergies (Unverified , 07/29/15) ROS Review of System UNABLE TO OBTAIN Physical Exam General: Other (SEDATED) HEENT: Atraumatic, Other (OGT AND ET TUBE IN PLACE ON VENT) Lungs: Other (BASILAR RHONCHI AND SOME WHEEZES) Heart: Regular rate Abdomen: Normal bowel sounds, Soft Extremities: No clubbing Skin: No breakdown Neuro: Other (SEDATED) Psych/Mental Status: Other (SEDATED) MUSCULOSKELETAL: Other (DIFFUSE MUSCLE ATROPHY) Vitals VITALS Vital Signs Date Time Temp Pulse Resp B/P Pulse Ox O2 Delivery O2 Flow Rate FiO2 08/24/16 10:00 112 19 143/91 100 Ventilator 08/24/16 08:00 99.1 99.1 08/24/16 04:00 5.0 Labs Labs Laboratory Tests Test 08/23/16 10:28 08/23/16 11:20 08/23/16 13:43 08/23/16 15:00 White Blood Count 8.1x10^3/uL (4.0-11.0) Red Blood Count 3.91x10^6/uL (4.30-5.70) Hemoglobin 13.5g/dL (13.0-17.5) Hematocrit 42.1% (39.0-53.0) Mean Corpuscular Volume 108fL (79-100) Mean Corpuscular Hemoglobin 35pg (25-35) Mean Corpuscular Hemoglobin Concent 32g/dL (31-37) Red Cell Distribution Width 14.8% (11.5-14.5) Platelet Count 216x10^3/uL (140-400) Neutrophils (%) (Auto) 92% (31-73) Lymphocytes (%) (Auto) 7% (24-48) Monocytes (%) (Auto) 1% (0-9) Eosinophils (%) (Auto) 0% (0-3) Basophils (%) (Auto) 0% (0-3) Neutrophils # (Auto) 7.4x10^3uL (1.8-7.7) Lymphocytes # (Auto) 0.6x10^3/uL (1.0-4.8) Monocytes # (Auto) 0.1x10^3/uL (0.0-1.1) Eosinophils # (Auto) 0.0x10^3/uL (0.0-0.7) Basophils # (Auto) 0.0x10^3/uL (0.0-0.2) Segmented Neutrophils % 16% (35-66) Band Neutrophils % 67% (0-9) Lymphocytes % 9% (24-48) Monocytes % 1% (0-10) Eosinophils % 1% (0-5) Metamyelocytes % 6% (0-0) Toxic Vacuolation Present Platelet Estimate Adequate (ADEQUATE) Polychromasia Slight Macrocytosis Present Prothrombin Time 18.9SEC (11.7-14.0) Prothromb Time International Ratio 1.7 (0.8-1.1) Sodium Level 143mmol/L (136-145) Potassium Level 4.8mmol/L (3.5-5.1) Chloride Level 98mmol/L (98-107) Carbon Dioxide Level 9mmol/L (21-32) Anion Gap 36 (6-14) Blood Urea Nitrogen 38mg/dL (8-26) Creatinine 2.7mg/dL (0.7-1.3) Estimated GFR (Cockcroft-Gault) 29.9 Glucose Level 248mg/dL (70-99) Calcium Level 9.4mg/dL (8.5-10.1) Magnesium Level 2.3mg/dL (1.8-2.4) Total Bilirubin 1.0mg/dL (0.2-1.0) Direct Bilirubin 0.6mg/dL (0.0-0.2) Aspartate Amino Transf (AST/SGOT) 41U/L (15-37) Alanine Aminotransferase (ALT/SGPT) 59U/L (16-63) Alkaline Phosphatase 80U/L (46-116) Creatine Kinase 691U/L (39-308) Creatine Kinase MB (Mass) 1.1ng/mL (0.0-3.6) Creatine Kinase MB Relative Index 0.2% (0-4) Troponin I Quantitative < 0.017ng/mL (0.000-0.055) RC-Hso-X-Type Natriuretic Peptide 2722pg/mL (0-124) Total Protein 8.4g/dL (6.4-8.2) Albumin 2.6g/dL (3.4-5.0) Thyroid Stimulating Hormone (TSH) 11.445uIU/mL (0.358-3.74) Influenza Type A Antigen Negative (NEGATIVE) Influenza Type B Antigen Negative (NEGATIVE) Lactic Acid Level 20.4mmol/L (0.4-2.0) Nasal Screen MRSA (PCR) Negative (Negative) Test 08/23/16 15:15 08/23/16 16:15 08/23/16 17:00 08/23/16 17:30 Sodium Level 147mmol/L (136-145) Potassium Level 4.9mmol/L (3.5-5.1) Chloride Level 105mmol/L (98-107) Carbon Dioxide Level 10mmol/L (21-32) Anion Gap 32 (6-14) Blood Urea Nitrogen 37mg/dL (8-26) Creatinine 2.5mg/dL (0.7-1.3) Estimated GFR (Cockcroft-Gault) 32.7 Glucose Level 197mg/dL (70-99) Lactic Acid Level 19.7mmol/L (0.4-2.0) Calcium Level 8.7mg/dL (8.5-10.1) Free Thyroxine 0.88ng/dL (0.76-1.46) Free Triiodothyronine (T3) pg/mL < 0.50pg/mL (2.18-3.98) O2 Saturation 84% (92-99) Arterial Blood pH 7.14 (7.35-7.45) Arterial Blood pCO2 at Patient Temp 21mmHg (35-46) Arterial Blood pO2 at Patient Temp 61mmHg (75-108) Arterial Blood HCO3 7mmol/L (21-28) Arterial Blood Base Excess -20mmol/L (-3-3) FiO2 21 Urine Collection Type Unknown Urine Color Red Urine Clarity Turbid Urine pH 7.5 Urine Specific [place] 1.015 Urine Protein >=300mg/dL (NEG-TRACE) Urine Glucose (UA) Negativemg/dL (NEG) Urine Ketones (Stick) Tracemg/dL (NEG) Urine Blood Large (NEG) Urine Nitrite Positive (NEG) Urine Bilirubin Small (NEG) Urine Urobilinogen Dipstick 1.0mg/dL (0.2 mg/dL) Urine Leukocyte Esterase Large (NEG) Urine RBC Tntc/HPF (0-2) Urine WBC Tntc/HPF (0-4) Urine Squamous Epithelial Cells None/LPF Urine Bacteria Many/HPF (0-FEW) White Blood Count 10.9x10^3/uL (4.0-11.0) Red Blood Count 2.92x10^6/uL (4.30-5.70) Hemoglobin 10.2g/dL (13.0-17.5) Hematocrit 30.8% (39.0-53.0) Mean Corpuscular Volume 105fL (79-100) Mean Corpuscular Hemoglobin 35pg (25-35) Mean Corpuscular Hemoglobin Concent 33g/dL (31-37) Red Cell Distribution Width 14.3% (11.5-14.5) Platelet Count 140x10^3/uL (140-400) Neutrophils (%) (Auto) 93% (31-73) Lymphocytes (%) (Auto) 6% (24-48) Monocytes (%) (Auto) 1% (0-9) Eosinophils (%) (Auto) 0% (0-3) Basophils (%) (Auto) 0% (0-3) Neutrophils # (Auto) 10.1x10^3uL (1.8-7.7) Lymphocytes # (Auto) 0.6x10^3/uL (1.0-4.8) Monocytes # (Auto) 0.1x10^3/uL (0.0-1.1) Eosinophils # (Auto) 0.0x10^3/uL (0.0-0.7) Basophils # (Auto) 0.0x10^3/uL (0.0-0.2) Prothrombin Time 20.8SEC (11.7-14.0) Prothromb Time International Ratio 1.9 (0.8-1.1) Test 08/23/16 20:00 08/23/16 20:15 08/24/16 01:05 08/24/16 03:48 O2 Saturation 85% (92-99) 82% (92-99) Arterial Blood pH 7.30 (7.35-7.45) 7.23 (7.35-7.45) Arterial Blood pCO2 at Patient Temp 21mmHg (35-46) 42mmHg (35-46) Arterial Blood pO2 at Patient Temp 53mmHg (75-108) 56mmHg (75-108) Arterial Blood HCO3 10mmol/L (21-28) 17mmol/L (21-28) Arterial Blood Base Excess -15mmol/L (-3-3) -10mmol/L (-3-3) FiO2 40 50 White Blood Count 9.5x10^3/uL (4.0-11.0) Red Blood Count 3.03x10^6/uL (4.30-5.70) Hemoglobin 10.5g/dL (13.0-17.5) Hematocrit 32.6% (39.0-53.0) Mean Corpuscular Volume 107fL (79-100) Mean Corpuscular Hemoglobin 35pg (25-35) Mean Corpuscular Hemoglobin Concent 32g/dL (31-37) Red Cell Distribution Width 14.2% (11.5-14.5) Platelet Count 142x10^3/uL (140-400) Sodium Level 148mmol/L (136-145) Potassium Level 4.4mmol/L (3.5-5.1) Chloride Level 109mmol/L (98-107) Carbon Dioxide Level 13mmol/L (21-32) Anion Gap 26 (6-14) Blood Urea Nitrogen 34mg/dL (8-26) Creatinine 2.4mg/dL (0.7-1.3) Estimated GFR (Cockcroft-Gault) 34.3 Glucose Level 182mg/dL (70-99) Lactic Acid Level 14.4mmol/L (0.4-2.0) 12.7mmol/L (0.4-2.0) Calcium Level 7.3mg/dL (8.5-10.1) Troponin I Quantitative 0.031ng/mL (0.000-0.055) 0.055ng/mL (0.000-0.055) Prothrombin Time 21.2SEC (11.7-14.0) Prothromb Time International Ratio 2.0 (0.8-1.1) Arterial Blood pH (Temp corrected) 7.21 Arterial Blood pCO2 (Temp correct) 45mmHg Arterial Blood pO2 (Temp corrected) 61mmHg Test 08/24/16 04:50 08/24/16 05:52 08/24/16 09:04 White Blood Count 8.4x10^3/uL (4.0-11.0) Red Blood Count 3.14x10^6/uL (4.30-5.70) Hemoglobin 10.8g/dL (13.0-17.5) Hematocrit 33.3% (39.0-53.0) Mean Corpuscular Volume 106fL (79-100) Mean Corpuscular Hemoglobin 34pg (25-35) Mean Corpuscular Hemoglobin Concent 32g/dL (31-37) Red Cell Distribution Width 14.2% (11.5-14.5) Platelet Count 140x10^3/uL (140-400) Neutrophils (%) (Auto) 92% (31-73) Lymphocytes (%) (Auto) 5% (24-48) Monocytes (%) (Auto) 2% (0-9) Eosinophils (%) (Auto) 0% (0-3) Basophils (%) (Auto) 1% (0-3) Neutrophils # (Auto) 7.8x10^3uL (1.8-7.7) Lymphocytes # (Auto) 0.4x10^3/uL (1.0-4.8) Monocytes # (Auto) 0.2x10^3/uL (0.0-1.1) Eosinophils # (Auto) 0.0x10^3/uL (0.0-0.7) Basophils # (Auto) 0.0x10^3/uL (0.0-0.2) Sodium Level 146mmol/L (136-145) Potassium Level 4.8mmol/L (3.5-5.1) Chloride Level 107mmol/L (98-107) Carbon Dioxide Level 18mmol/L (21-32) Anion Gap 21 (6-14) Blood Urea Nitrogen 38mg/dL (8-26) Creatinine 2.3mg/dL (0.7-1.3) Estimated GFR (Cockcroft-Gault) 36.0 BUN/Creatinine Ratio 17 (6-20) Glucose Level 162mg/dL (70-99) Lactic Acid Level 12.2mmol/L (0.4-2.0) Calcium Level 7.6mg/dL (8.5-10.1) Total Bilirubin 0.9mg/dL (0.2-1.0) Aspartate Amino Transf (AST/SGOT) 76U/L (15-37) Alanine Aminotransferase (ALT/SGPT) 46U/L (16-63) Alkaline Phosphatase 42U/L (46-116) Total Protein 6.0g/dL (6.4-8.2) Albumin 1.7g/dL (3.4-5.0) Albumin/Globulin Ratio 0.4 (1.0-1.7) O2 Saturation 99% (92-99) 99% (92-99) Arterial Blood pH 7.42 (7.35-7.45) 7.39 (7.35-7.45) Arterial Blood pCO2 at Patient Temp 23mmHg (35-46) 21mmHg (35-46) Arterial Blood pO2 at Patient Temp 161mmHg (75-108) 157mmHg (75-108) Arterial Blood HCO3 15mmol/L (21-28) 12mmol/L (21-28) Arterial Blood Base Excess -8mmol/L (-3-3) -11mmol/L (-3-3) FiO2 100 80 Laboratory Tests Test 08/23/16 11:20 08/23/16 13:43 08/23/16 15:00 08/23/16 15:15 Influenza Type A Antigen Negative (NEGATIVE) Influenza Type B Antigen Negative (NEGATIVE) Lactic Acid Level 20.4mmol/L (0.4-2.0) 19.7mmol/L (0.4-2.0) Nasal Screen MRSA (PCR) Negative (Negative) Sodium Level 147mmol/L (136-145) Potassium Level 4.9mmol/L (3.5-5.1) Chloride Level 105mmol/L (98-107) Carbon Dioxide Level 10mmol/L (21-32) Anion Gap 32 (6-14) Blood Urea Nitrogen 37mg/dL (8-26) Creatinine 2.5mg/dL (0.7-1.3) Estimated GFR (Cockcroft-Gault) 32.7 Glucose Level 197mg/dL (70-99) Calcium Level 8.7mg/dL (8.5-10.1) Free Thyroxine 0.88ng/dL (0.76-1.46) Free Triiodothyronine (T3) pg/mL < 0.50pg/mL (2.18-3.98) Test 08/23/16 16:15 08/23/16 17:00 08/23/16 17:30 08/23/16 20:00 O2 Saturation 84% (92-99) 85% (92-99) Arterial Blood pH 7.14 (7.35-7.45) 7.30 (7.35-7.45) Arterial Blood pCO2 at Patient Temp 21mmHg (35-46) 21mmHg (35-46) Arterial Blood pO2 at Patient Temp 61mmHg (75-108) 53mmHg (75-108) Arterial Blood HCO3 7mmol/L (21-28) 10mmol/L (21-28) Arterial Blood Base Excess -20mmol/L (-3-3) -15mmol/L (-3-3) FiO2 21 40 Urine Collection Type Unknown Urine Color Red Urine Clarity Turbid Urine pH 7.5 Urine Specific [place] 1.015 Urine Protein >=300mg/dL (NEG-TRACE) Urine Glucose (UA) Negativemg/dL (NEG) Urine Ketones (Stick) Tracemg/dL (NEG) Urine Blood Large (NEG) Urine Nitrite Positive (NEG) Urine Bilirubin Small (NEG) Urine Urobilinogen Dipstick 1.0mg/dL (0.2 mg/dL) Urine Leukocyte Esterase Large (NEG) Urine RBC Tntc/HPF (0-2) Urine WBC Tntc/HPF (0-4) Urine Squamous Epithelial Cells None/LPF Urine Bacteria Many/HPF (0-FEW) White Blood Count 10.9x10^3/uL (4.0-11.0) Red Blood Count 2.92x10^6/uL (4.30-5.70) Hemoglobin 10.2g/dL (13.0-17.5) Hematocrit 30.8% (39.0-53.0) Mean Corpuscular Volume 105fL (79-100) Mean Corpuscular Hemoglobin 35pg (25-35) Mean Corpuscular Hemoglobin Concent 33g/dL (31-37) Red Cell Distribution Width 14.3% (11.5-14.5) Platelet Count 140x10^3/uL (140-400) Neutrophils (%) (Auto) 93% (31-73) Lymphocytes (%) (Auto) 6% (24-48) Monocytes (%) (Auto) 1% (0-9) Eosinophils (%) (Auto) 0% (0-3) Basophils (%) (Auto) 0% (0-3) Neutrophils # (Auto) 10.1x10^3uL (1.8-7.7) Lymphocytes # (Auto) 0.6x10^3/uL (1.0-4.8) Monocytes # (Auto) 0.1x10^3/uL (0.0-1.1) Eosinophils # (Auto) 0.0x10^3/uL (0.0-0.7) Basophils # (Auto) 0.0x10^3/uL (0.0-0.2) Prothrombin Time 20.8SEC (11.7-14.0) Prothromb Time International Ratio 1.9 (0.8-1.1) Test 08/23/16 20:15 08/24/16 01:05 08/24/16 03:48 08/24/16 04:50 White Blood Count 9.5x10^3/uL (4.0-11.0) 8.4x10^3/uL (4.0-11.0) Red Blood Count 3.03x10^6/uL (4.30-5.70) 3.14x10^6/uL (4.30-5.70) Hemoglobin 10.5g/dL (13.0-17.5) 10.8g/dL (13.0-17.5) Hematocrit 32.6% (39.0-53.0) 33.3% (39.0-53.0) Mean Corpuscular Volume 107fL (79-100) 106fL (79-100) Mean Corpuscular Hemoglobin 35pg (25-35) 34pg (25-35) Mean Corpuscular Hemoglobin Concent 32g/dL (31-37) 32g/dL (31-37) Red Cell Distribution Width 14.2% (11.5-14.5) 14.2% (11.5-14.5) Platelet Count 142x10^3/uL (140-400) 140x10^3/uL (140-400) Sodium Level 148mmol/L (136-145) 146mmol/L (136-145) Potassium Level 4.4mmol/L (3.5-5.1) 4.8mmol/L (3.5-5.1) Chloride Level 109mmol/L (98-107) 107mmol/L (98-107) Carbon Dioxide Level 13mmol/L (21-32) 18mmol/L (21-32) Anion Gap 26 (6-14) 21 (6-14) Blood Urea Nitrogen 34mg/dL (8-26) 38mg/dL (8-26) Creatinine 2.4mg/dL (0.7-1.3) 2.3mg/dL (0.7-1.3) Estimated GFR (Cockcroft-Gault) 34.3 36.0 Glucose Level 182mg/dL (70-99) 162mg/dL (70-99) Lactic Acid Level 14.4mmol/L (0.4-2.0) 12.7mmol/L (0.4-2.0) 12.2mmol/L (0.4-2.0) Calcium Level 7.3mg/dL (8.5-10.1) 7.6mg/dL (8.5-10.1) Troponin I Quantitative 0.031ng/mL (0.000-0.055) 0.055ng/mL (0.000-0.055) Prothrombin Time 21.2SEC (11.7-14.0) Prothromb Time International Ratio 2.0 (0.8-1.1) O2 Saturation 82% (92-99) Arterial Blood pH 7.23 (7.35-7.45) Arterial Blood pH (Temp corrected) 7.21 Arterial Blood pCO2 at Patient Temp 42mmHg (35-46) Arterial Blood pCO2 (Temp correct) 45mmHg Arterial Blood pO2 at Patient Temp 56mmHg (75-108) Arterial Blood pO2 (Temp corrected) 61mmHg Arterial Blood HCO3 17mmol/L (21-28) Arterial Blood Base Excess -10mmol/L (-3-3) FiO2 50 Neutrophils (%) (Auto) 92% (31-73) Lymphocytes (%) (Auto) 5% (24-48) Monocytes (%) (Auto) 2% (0-9) Eosinophils (%) (Auto) 0% (0-3) Basophils (%) (Auto) 1% (0-3) Neutrophils # (Auto) 7.8x10^3uL (1.8-7.7) Lymphocytes # (Auto) 0.4x10^3/uL (1.0-4.8) Monocytes # (Auto) 0.2x10^3/uL (0.0-1.1) Eosinophils # (Auto) 0.0x10^3/uL (0.0-0.7) Basophils # (Auto) 0.0x10^3/uL (0.0-0.2) BUN/Creatinine Ratio 17 (6-20) Total Bilirubin 0.9mg/dL (0.2-1.0) Aspartate Amino Transf (AST/SGOT) 76U/L (15-37) Alanine Aminotransferase (ALT/SGPT) 46U/L (16-63) Alkaline Phosphatase 42U/L (46-116) Total Protein 6.0g/dL (6.4-8.2) Albumin 1.7g/dL (3.4-5.0) Albumin/Globulin Ratio 0.4 (1.0-1.7) Test 08/24/16 05:52 08/24/16 09:04 O2 Saturation 99% (92-99) 99% (92-99) Arterial Blood pH 7.42 (7.35-7.45) 7.39 (7.35-7.45) Arterial Blood pCO2 at Patient Temp 23mmHg (35-46) 21mmHg (35-46) Arterial Blood pO2 at Patient Temp 161mmHg (75-108) 157mmHg (75-108) Arterial Blood HCO3 15mmol/L (21-28) 12mmol/L (21-28) Arterial Blood Base Excess -8mmol/L (-3-3) -11mmol/L (-3-3) FiO2 100 80 Assessment/Plan Assessment/Plan IMP SEPSIS RESP FAILURE PNEUMONIA ANEMIA HYPOTENSION HYPERNATREMIA MAHAD MET ACIDOSIS PLAN PRESSORS ANTIBIOTICS HCO3 GTT VOLUME EXPAND VENT SUPPORT START TF SUPPORTIVE CARE WILL FOLLOW CHRISTA HAMILTON MD Aug 24, 2016 10:34
[2016-08-24] MEDS ORDERED: VANCOMYCIN 1 GM in IV NORMAL SALINE 250ML 250 ML IV SCH (13:00)
[2016-08-24] MEDS ORDERED: VANCOMYCIN 750 MG in IV NORMAL SALINE 250ML 250 ML IV SCH (13:00)
--- NOTE | 2016-08-24 14:25 | PDOC ---
PROGRESS NOTES Chief Complaint Chief Complaint 1. Severe SEPSIS infectious in origin (PNA) with HIGH LACTATE and ORGAN dysfunction (HYPOTENSION) 2. PNEUMONIA, bed bound, gram pos, gram neg, anaerobes, ASPIRATION highly likely 3. BED bound, non verbal, hx down's hx CVA 4. DYsphagia, indwelling PEG 5. OLiguric renal failure 6. MAHAD, vasomotor 7. GAp metabolic acidosis, recent vomiting, severe sepsis 8. hypothyroidism 9. down syndrome PLAN: Aggressive iVF with bicarb Broad spectrum to cover gram pos, gram neg and anaerboes as aspiration IS A HIGH consideration in this pt Recheck lactate and labs johan AM TF via peg with nutrition consult CHeck KUB first - had vomiting r/o obstruction before starting feeding, might need to be NPO for days make sure not aspirating CHeck ABG - check pH MIght need bicarb - likely will need bicarb gtt Get pulmonary critical care, renal and iD consults -severe sepsis INR high, no dvt ppx needed PPI since nPO add iv sythroid Iv KEPPRA for now since NPO Dw ELECTRICIAN SHIP on 2 pressors, multiple iv abd, eventually need abd/pelvis CT with bl hydronephrosis, may need iv contrast too however has MAHAD now poor prognosis, DNR CC 35 mins History of Present Illness History of Present Illness fever, tachycardia was on 3 pressors , now down to 2 still very high LA at 12 Vitals Vitals Vital Signs Date Time Temp Pulse Resp B/P Pulse Ox O2 Delivery O2 Flow Rate FiO2 08/24/16 14:00 108 18 107/93 100 Ventilator 08/24/16 12:00 99.4 99.4 08/24/16 04:00 5.0 Physical Exam Physical Exam intubated, sedated General: Other (SEDATED) Heart: Regular rate Lungs: Crackles Abdomen: Normal bowel sounds, Soft Extremities: No clubbing Skin: No breakdown Labs LABS Laboratory Tests Test 08/23/16 15:00 08/23/16 15:15 08/23/16 16:15 08/23/16 17:00 Nasal Screen MRSA (PCR) Negative (Negative) Sodium Level 147mmol/L (136-145) Potassium Level 4.9mmol/L (3.5-5.1) Chloride Level 105mmol/L (98-107) Carbon Dioxide Level 10mmol/L (21-32) Anion Gap 32 (6-14) Blood Urea Nitrogen 37mg/dL (8-26) Creatinine 2.5mg/dL (0.7-1.3) Estimated GFR (Cockcroft-Gault) 32.7 Glucose Level 197mg/dL (70-99) Lactic Acid Level 19.7mmol/L (0.4-2.0) Calcium Level 8.7mg/dL (8.5-10.1) Free Thyroxine 0.88ng/dL (0.76-1.46) Free Triiodothyronine (T3) pg/mL < 0.50pg/mL (2.18-3.98) O2 Saturation 84% (92-99) Arterial Blood pH 7.14 (7.35-7.45) Arterial Blood pCO2 at Patient Temp 21mmHg (35-46) Arterial Blood pO2 at Patient Temp 61mmHg (75-108) Arterial Blood HCO3 7mmol/L (21-28) Arterial Blood Base Excess -20mmol/L (-3-3) FiO2 21 Urine Collection Type Unknown Urine Color Red Urine Clarity Turbid Urine pH 7.5 Urine Specific [place] 1.015 Urine Protein >=300mg/dL (NEG-TRACE) Urine Glucose (UA) Negativemg/dL (NEG) Urine Ketones (Stick) Tracemg/dL (NEG) Urine Blood Large (NEG) Urine Nitrite Positive (NEG) Urine Bilirubin Small (NEG) Urine Urobilinogen Dipstick 1.0mg/dL (0.2 mg/dL) Urine Leukocyte Esterase Large (NEG) Urine RBC Tntc/HPF (0-2) Urine WBC Tntc/HPF (0-4) Urine Squamous Epithelial Cells None/LPF Urine Bacteria Many/HPF (0-FEW) Test 08/23/16 17:30 08/23/16 20:00 08/23/16 20:15 08/24/16 01:05 White Blood Count 10.9x10^3/uL (4.0-11.0) 9.5x10^3/uL (4.0-11.0) Red Blood Count 2.92x10^6/uL (4.30-5.70) 3.03x10^6/uL (4.30-5.70) Hemoglobin 10.2g/dL (13.0-17.5) 10.5g/dL (13.0-17.5) Hematocrit 30.8% (39.0-53.0) 32.6% (39.0-53.0) Mean Corpuscular Volume 105fL (79-100) 107fL (79-100) Mean Corpuscular Hemoglobin 35pg (25-35) 35pg (25-35) Mean Corpuscular Hemoglobin Concent 33g/dL (31-37) 32g/dL (31-37) Red Cell Distribution Width 14.3% (11.5-14.5) 14.2% (11.5-14.5) Platelet Count 140x10^3/uL (140-400) 142x10^3/uL (140-400) Neutrophils (%) (Auto) 93% (31-73) Lymphocytes (%) (Auto) 6% (24-48) Monocytes (%) (Auto) 1% (0-9) Eosinophils (%) (Auto) 0% (0-3) Basophils (%) (Auto) 0% (0-3) Neutrophils # (Auto) 10.1x10^3uL (1.8-7.7) Lymphocytes # (Auto) 0.6x10^3/uL (1.0-4.8) Monocytes # (Auto) 0.1x10^3/uL (0.0-1.1) Eosinophils # (Auto) 0.0x10^3/uL (0.0-0.7) Basophils # (Auto) 0.0x10^3/uL (0.0-0.2) Prothrombin Time 20.8SEC (11.7-14.0) 21.2SEC (11.7-14.0) Prothromb Time International Ratio 1.9 (0.8-1.1) 2.0 (0.8-1.1) O2 Saturation 85% (92-99) Arterial Blood pH 7.30 (7.35-7.45) Arterial Blood pCO2 at Patient Temp 21mmHg (35-46) Arterial Blood pO2 at Patient Temp 53mmHg (75-108) Arterial Blood HCO3 10mmol/L (21-28) Arterial Blood Base Excess -15mmol/L (-3-3) FiO2 40 Sodium Level 148mmol/L (136-145) Potassium Level 4.4mmol/L (3.5-5.1) Chloride Level 109mmol/L (98-107) Carbon Dioxide Level 13mmol/L (21-32) Anion Gap 26 (6-14) Blood Urea Nitrogen 34mg/dL (8-26) Creatinine 2.4mg/dL (0.7-1.3) Estimated GFR (Cockcroft-Gault) 34.3 Glucose Level 182mg/dL (70-99) Lactic Acid Level 14.4mmol/L (0.4-2.0) 12.7mmol/L (0.4-2.0) Calcium Level 7.3mg/dL (8.5-10.1) Troponin I Quantitative 0.031ng/mL (0.000-0.055) 0.055ng/mL (0.000-0.055) Test 08/24/16 03:48 08/24/16 04:50 08/24/16 05:52 08/24/16 09:04 O2 Saturation 82% (92-99) 99% (92-99) 99% (92-99) Arterial Blood pH 7.23 (7.35-7.45) 7.42 (7.35-7.45) 7.39 (7.35-7.45) Arterial Blood pH (Temp corrected) 7.21 Arterial Blood pCO2 at Patient Temp 42mmHg (35-46) 23mmHg (35-46) 21mmHg (35-46) Arterial Blood pCO2 (Temp correct) 45mmHg Arterial Blood pO2 at Patient Temp 56mmHg (75-108) 161mmHg (75-108) 157mmHg (75-108) Arterial Blood pO2 (Temp corrected) 61mmHg Arterial Blood HCO3 17mmol/L (21-28) 15mmol/L (21-28) 12mmol/L (21-28) Arterial Blood Base Excess -10mmol/L (-3-3) -8mmol/L (-3-3) -11mmol/L (-3-3) FiO2 50 100 80 White Blood Count 8.4x10^3/uL (4.0-11.0) Red Blood Count 3.14x10^6/uL (4.30-5.70) Hemoglobin 10.8g/dL (13.0-17.5) Hematocrit 33.3% (39.0-53.0) Mean Corpuscular Volume 106fL (79-100) Mean Corpuscular Hemoglobin 34pg (25-35) Mean Corpuscular Hemoglobin Concent 32g/dL (31-37) Red Cell Distribution Width 14.2% (11.5-14.5) Platelet Count 140x10^3/uL (140-400) Neutrophils (%) (Auto) 92% (31-73) Lymphocytes (%) (Auto) 5% (24-48) Monocytes (%) (Auto) 2% (0-9) Eosinophils (%) (Auto) 0% (0-3) Basophils (%) (Auto) 1% (0-3) Neutrophils # (Auto) 7.8x10^3uL (1.8-7.7) Lymphocytes # (Auto) 0.4x10^3/uL (1.0-4.8) Monocytes # (Auto) 0.2x10^3/uL (0.0-1.1) Eosinophils # (Auto) 0.0x10^3/uL (0.0-0.7) Basophils # (Auto) 0.0x10^3/uL (0.0-0.2) Sodium Level 146mmol/L (136-145) Potassium Level 4.8mmol/L (3.5-5.1) Chloride Level 107mmol/L (98-107) Carbon Dioxide Level 18mmol/L (21-32) Anion Gap 21 (6-14) Blood Urea Nitrogen 38mg/dL (8-26) Creatinine 2.3mg/dL (0.7-1.3) Estimated GFR (Cockcroft-Gault) 36.0 BUN/Creatinine Ratio 17 (6-20) Glucose Level 162mg/dL (70-99) Lactic Acid Level 12.2mmol/L (0.4-2.0) Calcium Level 7.6mg/dL (8.5-10.1) Total Bilirubin 0.9mg/dL (0.2-1.0) Aspartate Amino Transf (AST/SGOT) 76U/L (15-37) Alanine Aminotransferase (ALT/SGPT) 46U/L (16-63) Alkaline Phosphatase 42U/L (46-116) Total Protein 6.0g/dL (6.4-8.2) Albumin 1.7g/dL (3.4-5.0) Albumin/Globulin Ratio 0.4 (1.0-1.7) Review of Systems Review of Systems no chills Assessment and Plan Assessmemt and Plan Problems Medical Problems: (1) HAP (hospital-acquired pneumonia) Status: Acute (2) Pneumonia Status: Acute Problems: Comment Review of Relevant I have reviewed the following items kassie (where applicable) has been applied. Labs Laboratory Tests Test 08/23/16 10:28 08/23/16 11:20 08/23/16 13:43 08/23/16 15:00 White Blood Count 8.1x10^3/uL (4.0-11.0) Red Blood Count 3.91x10^6/uL (4.30-5.70) Hemoglobin 13.5g/dL (13.0-17.5) Hematocrit 42.1% (39.0-53.0) Mean Corpuscular Volume 108fL (79-100) Mean Corpuscular Hemoglobin 35pg (25-35) Mean Corpuscular Hemoglobin Concent 32g/dL (31-37) Red Cell Distribution Width 14.8% (11.5-14.5) Platelet Count 216x10^3/uL (140-400) Neutrophils (%) (Auto) 92% (31-73) Lymphocytes (%) (Auto) 7% (24-48) Monocytes (%) (Auto) 1% (0-9) Eosinophils (%) (Auto) 0% (0-3) Basophils (%) (Auto) 0% (0-3) Neutrophils # (Auto) 7.4x10^3uL (1.8-7.7) Lymphocytes # (Auto) 0.6x10^3/uL (1.0-4.8) Monocytes # (Auto) 0.1x10^3/uL (0.0-1.1) Eosinophils # (Auto) 0.0x10^3/uL (0.0-0.7) Basophils # (Auto) 0.0x10^3/uL (0.0-0.2) Segmented Neutrophils % 16% (35-66) Band Neutrophils % 67% (0-9) Lymphocytes % 9% (24-48) Monocytes % 1% (0-10) Eosinophils % 1% (0-5) Metamyelocytes % 6% (0-0) Toxic Vacuolation Present Platelet Estimate Adequate (ADEQUATE) Polychromasia Slight Macrocytosis Present Prothrombin Time 18.9SEC (11.7-14.0) Prothromb Time International Ratio 1.7 (0.8-1.1) Sodium Level 143mmol/L (136-145) Potassium Level 4.8mmol/L (3.5-5.1) Chloride Level 98mmol/L (98-107) Carbon Dioxide Level 9mmol/L (21-32) Anion Gap 36 (6-14) Blood Urea Nitrogen 38mg/dL (8-26) Creatinine 2.7mg/dL (0.7-1.3) Estimated GFR (Cockcroft-Gault) 29.9 Glucose Level 248mg/dL (70-99) Calcium Level 9.4mg/dL (8.5-10.1) Magnesium Level 2.3mg/dL (1.8-2.4) Total Bilirubin 1.0mg/dL (0.2-1.0) Direct Bilirubin 0.6mg/dL (0.0-0.2) Aspartate Amino Transf (AST/SGOT) 41U/L (15-37) Alanine Aminotransferase (ALT/SGPT) 59U/L (16-63) Alkaline Phosphatase 80U/L (46-116) Creatine Kinase 691U/L (39-308) Creatine Kinase MB (Mass) 1.1ng/mL (0.0-3.6) Creatine Kinase MB Relative Index 0.2% (0-4) Troponin I Quantitative < 0.017ng/mL (0.000-0.055) IF-Snr-U-Type Natriuretic Peptide 2722pg/mL (0-124) Total Protein 8.4g/dL (6.4-8.2) Albumin 2.6g/dL (3.4-5.0) Thyroid Stimulating Hormone (TSH) 11.445uIU/mL (0.358-3.74) Influenza Type A Antigen Negative (NEGATIVE) Influenza Type B Antigen Negative (NEGATIVE) Lactic Acid Level 20.4mmol/L (0.4-2.0) Nasal Screen MRSA (PCR) Negative (Negative) Test 2/27/17 15:15 08/23/16 16:15 08/23/16 17:00 08/23/16 17:30 Sodium Level 147mmol/L (136-145) Potassium Level 4.9mmol/L (3.5-5.1) Chloride Level 105mmol/L (98-107) Carbon Dioxide Level 10mmol/L (21-32) Anion Gap 32 (6-14) Blood Urea Nitrogen 37mg/dL (8-26) Creatinine 2.5mg/dL (0.7-1.3) Estimated GFR (Cockcroft-Gault) 32.7 Glucose Level 197mg/dL (70-99) Lactic Acid Level 19.7mmol/L (0.4-2.0) Calcium Level 8.7mg/dL (8.5-10.1) Free Thyroxine 0.88ng/dL (0.76-1.46) Free Triiodothyronine (T3) pg/mL < 0.50pg/mL (2.18-3.98) O2 Saturation 84% (92-99) Arterial Blood pH 7.14 (7.35-7.45) Arterial Blood pCO2 at Patient Temp 21mmHg (35-46) Arterial Blood pO2 at Patient Temp 61mmHg (75-108) Arterial Blood HCO3 7mmol/L (21-28) Arterial Blood Base Excess -20mmol/L (-3-3) FiO2 21 Urine Collection Type Unknown Urine Color Red Urine Clarity Turbid Urine pH 7.5 Urine Specific [place] 1.015 Urine Protein >=300mg/dL (NEG-TRACE) Urine Glucose (UA) Negativemg/dL (NEG) Urine Ketones (Stick) Tracemg/dL (NEG) Urine Blood Large (NEG) Urine Nitrite Positive (NEG) Urine Bilirubin Small (NEG) Urine Urobilinogen Dipstick 1.0mg/dL (0.2 mg/dL) Urine Leukocyte Esterase Large (NEG) Urine RBC Tntc/HPF (0-2) Urine WBC Tntc/HPF (0-4) Urine Squamous Epithelial Cells None/LPF Urine Bacteria Many/HPF (0-FEW) White Blood Count 10.9x10^3/uL (4.0-11.0) Red Blood Count 2.92x10^6/uL (4.30-5.70) Hemoglobin 10.2g/dL (13.0-17.5) Hematocrit 30.8% (39.0-53.0) Mean Corpuscular Volume 105fL (79-100) Mean Corpuscular Hemoglobin 35pg (25-35) Mean Corpuscular Hemoglobin Concent 33g/dL (31-37) Red Cell Distribution Width 14.3% (11.5-14.5) Platelet Count 140x10^3/uL (140-400) Neutrophils (%) (Auto) 93% (31-73) Lymphocytes (%) (Auto) 6% (24-48) Monocytes (%) (Auto) 1% (0-9) Eosinophils (%) (Auto) 0% (0-3) Basophils (%) (Auto) 0% (0-3) Neutrophils # (Auto) 10.1x10^3uL (1.8-7.7) Lymphocytes # (Auto) 0.6x10^3/uL (1.0-4.8) Monocytes # (Auto) 0.1x10^3/uL (0.0-1.1) Eosinophils # (Auto) 0.0x10^3/uL (0.0-0.7) Basophils # (Auto) 0.0x10^3/uL (0.0-0.2) Prothrombin Time 20.8SEC (11.7-14.0) Prothromb Time International Ratio 1.9 (0.8-1.1) Test 08/23/16 20:00 08/23/16 20:15 08/24/16 01:05 08/24/16 03:48 O2 Saturation 85% (92-99) 82% (92-99) Arterial Blood pH 7.30 (7.35-7.45) 7.23 (7.35-7.45) Arterial Blood pCO2 at Patient Temp 21mmHg (35-46) 42mmHg (35-46) Arterial Blood pO2 at Patient Temp 53mmHg (75-108) 56mmHg (75-108) Arterial Blood HCO3 10mmol/L (21-28) 17mmol/L (21-28) Arterial Blood Base Excess -15mmol/L (-3-3) -10mmol/L (-3-3) FiO2 40 50 White Blood Count 9.5x10^3/uL (4.0-11.0) Red Blood Count 3.03x10^6/uL (4.30-5.70) Hemoglobin 10.5g/dL (13.0-17.5) Hematocrit 32.6% (39.0-53.0) Mean Corpuscular Volume 107fL (79-100) Mean Corpuscular Hemoglobin 35pg (25-35) Mean Corpuscular Hemoglobin Concent 32g/dL (31-37) Red Cell Distribution Width 14.2% (11.5-14.5) Platelet Count 142x10^3/uL (140-400) Sodium Level 148mmol/L (136-145) Potassium Level 4.4mmol/L (3.5-5.1) Chloride Level 109mmol/L (98-107) Carbon Dioxide Level 13mmol/L (21-32) Anion Gap 26 (6-14) Blood Urea Nitrogen 34mg/dL (8-26) Creatinine 2.4mg/dL (0.7-1.3) Estimated GFR (Cockcroft-Gault) 34.3 Glucose Level 182mg/dL (70-99) Lactic Acid Level 14.4mmol/L (0.4-2.0) 12.7mmol/L (0.4-2.0) Calcium Level 7.3mg/dL (8.5-10.1) Troponin I Quantitative 0.031ng/mL (0.000-0.055) 0.055ng/mL (0.000-0.055) Prothrombin Time 21.2SEC (11.7-14.0) Prothromb Time International Ratio 2.0 (0.8-1.1) Arterial Blood pH (Temp corrected) 7.21 Arterial Blood pCO2 (Temp correct) 45mmHg Arterial Blood pO2 (Temp corrected) 61mmHg Test 08/24/16 04:50 08/24/16 05:52 08/24/16 09:04 White Blood Count 8.4x10^3/uL (4.0-11.0) Red Blood Count 3.14x10^6/uL (4.30-5.70) Hemoglobin 10.8g/dL (13.0-17.5) Hematocrit 33.3% (39.0-53.0) Mean Corpuscular Volume 106fL (79-100) Mean Corpuscular Hemoglobin 34pg (25-35) Mean Corpuscular Hemoglobin Concent 32g/dL (31-37) Red Cell Distribution Width 14.2% (11.5-14.5) Platelet Count 140x10^3/uL (140-400) Neutrophils (%) (Auto) 92% (31-73) Lymphocytes (%) (Auto) 5% (24-48) Monocytes (%) (Auto) 2% (0-9) Eosinophils (%) (Auto) 0% (0-3) Basophils (%) (Auto) 1% (0-3) Neutrophils # (Auto) 7.8x10^3uL (1.8-7.7) Lymphocytes # (Auto) 0.4x10^3/uL (1.0-4.8) Monocytes # (Auto) 0.2x10^3/uL (0.0-1.1) Eosinophils # (Auto) 0.0x10^3/uL (0.0-0.7) Basophils # (Auto) 0.0x10^3/uL (0.0-0.2) Sodium Level 146mmol/L (136-145) Potassium Level 4.8mmol/L (3.5-5.1) Chloride Level 107mmol/L (98-107) Carbon Dioxide Level 18mmol/L (21-32) Anion Gap 21 (6-14) Blood Urea Nitrogen 38mg/dL (8-26) Creatinine 2.3mg/dL (0.7-1.3) Estimated GFR (Cockcroft-Gault) 36.0 BUN/Creatinine Ratio 17 (6-20) Glucose Level 162mg/dL (70-99) Lactic Acid Level 12.2mmol/L (0.4-2.0) Calcium Level 7.6mg/dL (8.5-10.1) Total Bilirubin 0.9mg/dL (0.2-1.0) Aspartate Amino Transf (AST/SGOT) 76U/L (15-37) Alanine Aminotransferase (ALT/SGPT) 46U/L (16-63) Alkaline Phosphatase 42U/L (46-116) Total Protein 6.0g/dL (6.4-8.2) Albumin 1.7g/dL (3.4-5.0) Albumin/Globulin Ratio 0.4 (1.0-1.7) O2 Saturation 99% (92-99) 99% (92-99) Arterial Blood pH 7.42 (7.35-7.45) 7.39 (7.35-7.45) Arterial Blood pCO2 at Patient Temp 23mmHg (35-46) 21mmHg (35-46) Arterial Blood pO2 at Patient Temp 161mmHg (75-108) 157mmHg (75-108) Arterial Blood HCO3 15mmol/L (21-28) 12mmol/L (21-28) Arterial Blood Base Excess -8mmol/L (-3-3) -11mmol/L (-3-3) FiO2 100 80 Laboratory Tests Test 08/23/16 15:00 08/23/16 15:15 08/23/16 16:15 08/23/16 17:00 Nasal Screen MRSA (PCR) Negative (Negative) Sodium Level 147mmol/L (136-145) Potassium Level 4.9mmol/L (3.5-5.1) Chloride Level 105mmol/L (98-107) Carbon Dioxide Level 10mmol/L (21-32) Anion Gap 32 (6-14) Blood Urea Nitrogen 37mg/dL (8-26) Creatinine 2.5mg/dL (0.7-1.3) Estimated GFR (Cockcroft-Gault) 32.7 Glucose Level 197mg/dL (70-99) Lactic Acid Level 19.7mmol/L (0.4-2.0) Calcium Level 8.7mg/dL (8.5-10.1) Free Thyroxine 0.88ng/dL (0.76-1.46) Free Triiodothyronine (T3) pg/mL < 0.50pg/mL (2.18-3.98) O2 Saturation 84% (92-99) Arterial Blood pH 7.14 (7.35-7.45) Arterial Blood pCO2 at Patient Temp 21mmHg (35-46) Arterial Blood pO2 at Patient Temp 61mmHg (75-108) Arterial Blood HCO3 7mmol/L (21-28) Arterial Blood Base Excess -20mmol/L (-3-3) FiO2 21 Urine Collection Type Unknown Urine Color Red Urine Clarity Turbid Urine pH 7.5 Urine Specific [place] 1.015 Urine Protein >=300mg/dL (NEG-TRACE) Urine Glucose (UA) Negativemg/dL (NEG) Urine Ketones (Stick) Tracemg/dL (NEG) Urine Blood Large (NEG) Urine Nitrite Positive (NEG) Urine Bilirubin Small (NEG) Urine Urobilinogen Dipstick 1.0mg/dL (0.2 mg/dL) Urine Leukocyte Esterase Large (NEG) Urine RBC Tntc/HPF (0-2) Urine WBC Tntc/HPF (0-4) Urine Squamous Epithelial Cells None/LPF Urine Bacteria Many/HPF (0-FEW) Test 08/23/16 17:30 08/23/16 20:00 08/23/16 20:15 08/24/16 01:05 White Blood Count 10.9x10^3/uL (4.0-11.0) 9.5x10^3/uL (4.0-11.0) Red Blood Count 2.92x10^6/uL (4.30-5.70) 3.03x10^6/uL (4.30-5.70) Hemoglobin 10.2g/dL (13.0-17.5) 10.5g/dL (13.0-17.5) Hematocrit 30.8% (39.0-53.0) 32.6% (39.0-53.0) Mean Corpuscular Volume 105fL (79-100) 107fL (79-100) Mean Corpuscular Hemoglobin 35pg (25-35) 35pg (25-35) Mean Corpuscular Hemoglobin Concent 33g/dL (31-37) 32g/dL (31-37) Red Cell Distribution Width 14.3% (11.5-14.5) 14.2% (11.5-14.5) Platelet Count 140x10^3/uL (140-400) 142x10^3/uL (140-400) Neutrophils (%) (Auto) 93% (31-73) Lymphocytes (%) (Auto) 6% (24-48) Monocytes (%) (Auto) 1% (0-9) Eosinophils (%) (Auto) 0% (0-3) Basophils (%) (Auto) 0% (0-3) Neutrophils # (Auto) 10.1x10^3uL (1.8-7.7) Lymphocytes # (Auto) 0.6x10^3/uL (1.0-4.8) Monocytes # (Auto) 0.1x10^3/uL (0.0-1.1) Eosinophils # (Auto) 0.0x10^3/uL (0.0-0.7) Basophils # (Auto) 0.0x10^3/uL (0.0-0.2) Prothrombin Time 20.8SEC (11.7-14.0) 21.2SEC (11.7-14.0) Prothromb Time International Ratio 1.9 (0.8-1.1) 2.0 (0.8-1.1) O2 Saturation 85% (92-99) Arterial Blood pH 7.30 (7.35-7.45) Arterial Blood pCO2 at Patient Temp 21mmHg (35-46) Arterial Blood pO2 at Patient Temp 53mmHg (75-108) Arterial Blood HCO3 10mmol/L (21-28) Arterial Blood Base Excess -15mmol/L (-3-3) FiO2 40 Sodium Level 148mmol/L (136-145) Potassium Level 4.4mmol/L (3.5-5.1) Chloride Level 109mmol/L (98-107) Carbon Dioxide Level 13mmol/L (21-32) Anion Gap 26 (6-14) Blood Urea Nitrogen 34mg/dL (8-26) Creatinine 2.4mg/dL (0.7-1.3) Estimated GFR (Cockcroft-Gault) 34.3 Glucose Level 182mg/dL (70-99) Lactic Acid Level 14.4mmol/L (0.4-2.0) 12.7mmol/L (0.4-2.0) Calcium Level 7.3mg/dL (8.5-10.1) Troponin I Quantitative 0.031ng/mL (0.000-0.055) 0.055ng/mL (0.000-0.055) Test 08/24/16 03:48 08/24/16 04:50 08/24/16 05:52 08/24/16 09:04 O2 Saturation 82% (92-99) 99% (92-99) 99% (92-99) Arterial Blood pH 7.23 (7.35-7.45) 7.42 (7.35-7.45) 7.39 (7.35-7.45) Arterial Blood pH (Temp corrected) 7.21 Arterial Blood pCO2 at Patient Temp 42mmHg (35-46) 23mmHg (35-46) 21mmHg (35-46) Arterial Blood pCO2 (Temp correct) 45mmHg Arterial Blood pO2 at Patient Temp 56mmHg (75-108) 161mmHg (75-108) 157mmHg (75-108) Arterial Blood pO2 (Temp corrected) 61mmHg Arterial Blood HCO3 17mmol/L (21-28) 15mmol/L (21-28) 12mmol/L (21-28) Arterial Blood Base Excess -10mmol/L (-3-3) -8mmol/L (-3-3) -11mmol/L (-3-3) FiO2 50 100 80 White Blood Count 8.4x10^3/uL (4.0-11.0) Red Blood Count 3.14x10^6/uL (4.30-5.70) Hemoglobin 10.8g/dL (13.0-17.5) Hematocrit 33.3% (39.0-53.0) Mean Corpuscular Volume 106fL (79-100) Mean Corpuscular Hemoglobin 34pg (25-35) Mean Corpuscular Hemoglobin Concent 32g/dL (31-37) Red Cell Distribution Width 14.2% (11.5-14.5) Platelet Count 140x10^3/uL (140-400) Neutrophils (%) (Auto) 92% (31-73) Lymphocytes (%) (Auto) 5% (24-48) Monocytes (%) (Auto) 2% (0-9) Eosinophils (%) (Auto) 0% (0-3) Basophils (%) (Auto) 1% (0-3) Neutrophils # (Auto) 7.8x10^3uL (1.8-7.7) Lymphocytes # (Auto) 0.4x10^3/uL (1.0-4.8) Monocytes # (Auto) 0.2x10^3/uL (0.0-1.1) Eosinophils # (Auto) 0.0x10^3/uL (0.0-0.7) Basophils # (Auto) 0.0x10^3/uL (0.0-0.2) Sodium Level 146mmol/L (136-145) Potassium Level 4.8mmol/L (3.5-5.1) Chloride Level 107mmol/L (98-107) Carbon Dioxide Level 18mmol/L (21-32) Anion Gap 21 (6-14) Blood Urea Nitrogen 38mg/dL (8-26) Creatinine 2.3mg/dL (0.7-1.3) Estimated GFR (Cockcroft-Gault) 36.0 BUN/Creatinine Ratio 17 (6-20) Glucose Level 162mg/dL (70-99) Lactic Acid Level 12.2mmol/L (0.4-2.0) Calcium Level 7.6mg/dL (8.5-10.1) Total Bilirubin 0.9mg/dL (0.2-1.0) Aspartate Amino Transf (AST/SGOT) 76U/L (15-37) Alanine Aminotransferase (ALT/SGPT) 46U/L (16-63) Alkaline Phosphatase 42U/L (46-116) Total Protein 6.0g/dL (6.4-8.2) Albumin 1.7g/dL (3.4-5.0) Albumin/Globulin Ratio 0.4 (1.0-1.7) Microbiology 08/23/16 Blood Culture - Preliminary, Resulted NO GROWTH AFTER 1 DAY Medications Current Medications Sodium Chloride 1,000 ml @ 1,000 mls/hr 1X ONCE IV Last administered on 11:16; Start 08/23/16 at 11:15; Stop 08/23/16 at 12:14; Status DC Sodium Chloride (Iv Sodium Chloride 0.9% 1000ml Bag) 1,000 ml @ 1,000 mls/hr 1X ONCE IV Last administered on 08/23/16 11:30; Start 08/23/16 at 11:30; Stop 08/23/16 at 12:29; Status DC Vancomycin HCl (Vanco Per Pharmacy) 1 each PRN DAILY PRN MC SEE COMMENTS Last administered on 08/24/16 09:41; Start 08/23/16 at 11:30 Piperacillin Sod/ Tazobactam Sod 1 each 1 each PRN DAILY PRN MC SEE COMMENTS; Start 08/23/16 at 11:30 Levofloxacin/ Dextrose 100 ml @ 100 mls/hr 1X ONCE IV Last administered on 12:58; Start 08/23/16 at 11:30; Stop 08/23/16 at 12:29; Status DC Piperacillin Sod/ Tazobactam Sod 4.5 gm/Sodium Chloride 100 ml @ 200 mls/hr 1X ONCE IV Last administered on 08/23/16 12:00; Start 08/23/16 at 12:00; Stop 08/23/16 at 12:29; Status DC Vancomycin HCl 1.5 gm/Sodium Chloride 500 ml @ 250 mls/hr 1X ONCE IV Last administered on 08/23/16 12:30; Start 08/23/16 at 12:30; Stop 08/23/16 at 14:29 ; Status DC Sodium Chloride 1,000 ml @ 1,000 mls/hr 1X ONCE IV Last administered on 12:46; Start 08/23/16 at 12:30; Stop 08/23/16 at 13:29; Status DC Piperacillin Sod/ Tazobactam Sod 3.375 gm/Sodium Chloride 50 ml @ 100 mls/hr Q6HRS IV Last administered on 08/24/16 11:34; Start 08/23/16 at 18:00 Vancomycin HCl/ Sodium Chloride (Iv Sodium Chloride 0.9% 250ml) 250 ml @ 250 mls/hr Q24H IV ; Start 08/24/16 at 13:00; Status Cancel Vancomycin HCl 1 each 1X ONCE MC ; Start 08/25/16 at 12:30; Stop 08/25/16 at 12: 31 Labetalol HCl (Normodyne) 10 mg PRN Q2HR PRN IVP HYPERTENSION, SEE COMMENTS; Start 08/23/16 at 15:45 Aspirin (Luis Armando Aspirin) 325 mg DAILY PEG ; Start 08/24/16 at 09:00 Bisacodyl (Dulcolax Supp) 10 mg PRN DAILY PRN RC CONSTIPATION; Start 08/23/16 at 15:45 Vitamin D (Vitamin D3) 2,000 unit DAILY PO ; Start 08/24/16 at 09:00 Levetiracetam (Keppra) 500 mg BID PO ; Start 08/23/16 at 21:00; Stop 08/23/16 at 21:00; Status DC Vitamin B Complex (Hector B) 1 tab DAILY PO ; Start 08/24/16 at 09:00 Magnesium Hydroxide (Milk Of Magnesia) 2,400 mg PRN DAILY PRN PO CONSTIPATION; Start 08/23/16 at 15:45 Acetaminophen 500 mg 500 mg PRN Q6HRS PRN PO MILD PAIN / TEMP; Start 08/23/16 at 15:45 Levetiracetam/ Sodium Chloride (Keppra/Iv Sodium Chloride 0.9% 100ml) 105 ml @ 400 mls/hr Q12HR IV Last administered on 08/24/16 08:13; Start 08/23/16 at 21: 00 Pantoprazole Sodium (Protonix Vial) 40 mg DAILYAC IVP Last administered on 08/24 08:45; Start 08/24/16 at 07:30 Heparin Sodium (Porcine) 5000 unit 5,000 unit Q8HRS SQ ; Start 08/23/16 at 22:00 ; Stop 08/23/16 at 22:00; Status DC Sodium Bicarbonate/ Dextrose 1,150 ml @ 150 mls/hr Q7H40M IV Last administered on 08/24/16 09:51; Start 08/23/16 at 16:30 Sodium Bicarbonate 50 meq 1X ONCE IV Last administered on 08/23/16 16:24; Start 08/23/16 at 16:15; Stop 08/23/16 at 16:17; Status DC Albuterol/ Ipratropium 3 ml 3 ml RTQID NEB Last administered on 08/24/16 11:08 ; Start 08/23/16 at 20:00 Vancomycin HCl 750 mg/Sodium Chloride 250 ml @ 250 mls/hr Q24H IV Last administered on 08/24/16 12:15; Start 08/24/16 at 13:00 Norepinephrine Bitartrate 8 mg/ Sodium Chloride 258 ml @ 0 mls/hr CONT PRN IV SEE I/O RECORD Last administered on 08/24/16 13:21; Start 08/23/16 at 18:15 Sodium Chloride (Iv Sodium Chloride 0.9% 1000ml Bag) 1,000 ml @ 500 mls/hr Q2H IV Last administered on 08/23/16 17:00; Start 08/23/16 at 18:30; Stop at 20:29; Status DC Hydrocortisone Sodium Succinate (Solu-Cortef) 100 mg Q8HRS IV Last administered on 08/24/16 14:03; Start 08/23/16 at 22:30 Succinylcholine Chloride (Anectine) 200 mg STK-MED ONCE .ROUTE ; Start 08/24/16 at 04:15; Stop 08/24/16 at 04:16; Status DC Etomidate 20 mg 20 mg STK-MED ONCE IV ; Start 08/24/16 at 04:15; Stop 08/24/16 at 04:16; Status DC Fentanyl Citrate (Fentanyl 600 Mcg/30 ml [employer]) 30 ml @ 0 mls/hr CONT PRN IV PROTOCOL; Start 08/24/16 at 04:45 Fentanyl Citrate (Fentanyl 2ml Vial) 25 mcg PRN Q1HR PRN IV COMM; Start at 04:45 Fentanyl Citrate (Fentanyl 2ml Vial) 50 mcg PRN Q1HR PRN IV COMM; Start at 04:45 Chlorhexidine Gluconate 15 ml 15 ml BID MM Last administered on 08/24/16 08:44 ; Start 08/24/16 at 09:00 Midazolam HCl 100 ml @ 0 mls/hr CONT PRN IV PER PROTOCOL Last administered on 06:13; Start 08/24/16 at 04:45 Midazolam HCl 100 ml @ As Directed STK-MED ONCE IV ; Start 08/24/16 at 04:52; Stop 08/24/16 at 04:53; Status DC Sodium Chloride 1,000 ml @ 150 mls/hr Q6H40M IV Last administered on 06:13; Start 08/24/16 at 05:45; Stop 08/24/16 at 09:59; Status DC Vasopressin 40 unit/Dextrose 102 ml @ 6 mls/hr 1X ONCE IV Last administered on 08/24/16 06:12; Start 08/24/16 at 06:00; Stop 08/24/16 at 22:59 Phenylephrine HCl 20 mg/Sodium Chloride 252 ml @ 0 mls/hr CONT PRN IV SEE I/O RECORD Last administered on 08/24/16 07:28; Start 08/24/16 at 05:45 Albumin Human 500 ml @ 125 mls/hr 1X ONCE IV Last administered on 08/24/16 06:20; Start 08/24/16 at 05:45; Stop 08/24/16 at 09:44; Status DC Micafungin Sodium 100 mg/Dextrose 100 ml @ 100 mls/hr Q24H IV Last administered on 08/24/16 08:24; Start 08/24/16 at 09:00 Epinephrine HCl/ Sodium Chloride (Adrenalin/Iv Sodium Chloride 0.9% 250ml) 254 ml @ 0 mls/hr CONT PRN IV SEE I/O RECORD; Start 08/24/16 at 07:30 Epinephrine HCl (Adrenalin) 30 mg STK-MED ONCE .ROUTE ; Start 08/23/16 at 12:00 ; Stop 08/24/16 at 10:38; Status DC Epinephrine HCl 4 mg STK-MED ONCE .ROUTE ; Start 08/23/16 at 12:00; Stop at 10:38; Status DC Sodium Bicarbonate 100 meq STK-MED ONCE .ROUTE ; Start 08/23/16 at 12:00; Stop 08/24/16 at 10:38; Status DC Active Scripts Active Reported Milk Of Magnesia (Magnesium Hydroxide) 2,400 Mg/10 Ml Oral.susp 2,400 Mg PO DAILY PRN Dulcolax (Bisacodyl) 10 Mg Supp.rect 10 Mg RC PRN DAILY PRN Aspirin 325 Mg Tablet 1 Tab PEG DAILY Tylenol (Acetaminophen) 325 Mg Tablet 2 Tab PO PRN Q6HRS PRN Vitamin B Complex 1 Each Tablet 1 Tab PO DAILY Vitamin D3 (Cholecalciferol (Vitamin D3)) 1,000 Unit Tablet 2,000 Unit PO DAILY Keppra (Levetiracetam) 500 Mg Tablet 500 Mg PO BID Vitals/I & O Vital Sign - Last 24 Hours 08/23/16 08/23/16 08/23/16 08/23/16 15:00 15:00 15:30 16:00 Pulse 114 112 112 Resp 30 30 28 B/P 78/55 100/62 101/60 Pulse Ox 94 O2 Delivery Nasal Cannula Nasal Cannula Nasal Cannula Nasal Cannula O2 Flow Rate 2.0 2.0 5.0 08/23/16 08/23/16 08/23/16 08/23/16 16:00 16:30 17:00 17:30 Pulse 116 112 112 Resp 28 B/P 91/75 110/96 106/63 Pulse Ox 95 93 O2 Delivery Nasal Cannula Nasal Cannula Nasal Cannula Nasal Cannula O2 Flow Rate 4.0 5.0 5.0 08/23/16 08/23/16 08/23/16 08/23/16 18:00 18:19 19:00 20:00 Pulse 112 111 Resp 24 B/P 85/63 74/54 Pulse Ox 94 98 91 O2 Delivery Nasal Cannula Nasal Cannula Nasal Cannula Nasal Cannula O2 Flow Rate 5.0 4.0 5.0 5.0 08/23/16 08/23/16 08/23/16 08/23/16 20:00 20:15 21:00 22:00 Temp 96.7 96.7 Pulse 112 123 124 Resp 35 41 38 B/P 87/61 84/58 99/58 Pulse Ox 92 92 97 98 O2 Delivery Nasal Cannula BiPAP/CPAP BiPAP/CPAP BiPAP/CPAP O2 Flow Rate 5.0 08/23/16 08/23/16 08/23/16 08/24/16 23:00 23:15 23:59 00:00 Temp 98.5 98.5 Pulse 126 134 Resp 38 36 B/P 79/55 105/69 Pulse Ox 96 100 96 O2 Delivery BiPAP/CPAP BiPAP/CPAP Bi-pap BiPAP/CPAP 08/24/16 08/24/16 08/24/16 08/24/16 00:53 01:00 02:00 03:00 Temp 98.5 98.5 Pulse 128 126 126 Resp 36 27 27 B/P 105/56 72/64 72/64 Pulse Ox 100 95 95 95 O2 Delivery BiPAP/CPAP BiPAP/CPAP BiPAP/CPAP BiPAP/CPAP 08/24/16 08/24/16 08/24/16 08/24/16 03:30 04:00 04:00 04:00 Temp 100.6 100.6 Pulse 126 Resp 27 B/P 119/65 Pulse Ox 100 96 O2 Delivery BiPAP/CPAP Bi-pap BiPAP/CPAP O2 Flow Rate 5.0 08/24/16 08/24/16 08/24/1617 04:25 05:00 05:30 06:00 Pulse 140 128 Resp 27 24 B/P /64 Pulse Ox 94 95 98 99 O2 Delivery Ventilator BiPAP/CPAP Ventilator 08/24/16 08/24/16 08/24/16 08/24/16 07:32 08:00 08:00 09:00 Temp 99.1 99.1 Pulse 106 113 Resp 18 20 B/P 118/85 145/97 Pulse Ox 80 100 100 O2 Delivery Ventilator Ventilator Mechanical Ventilator Ventilator 08/24/16 08/24/16 08/24/16 08/24/16 09:18 10:00 11:00 11:08 Pulse 112 116 Resp 19 19 B/P 143/91 113/73 Pulse Ox 100 100 100 100 O2 Delivery Ventilator Ventilator Ventilator Ventilator 08/24/16 08/24/16 08/24/16 08/24/16 12:00 12:00 13:00 13:10 Temp 99.4 99.4 Pulse 112 112 Resp 21 17 B/P 141/83 102/62 Pulse Ox 100 100 100 O2 Delivery Ventilator Mechanical Ventilator Ventilator Ventilator 08/24/16 14:00 Pulse 108 Resp 18 B/P 107/93 Pulse Ox 100 O2 Delivery Ventilator Intake and Output 08/23/16 08/23/16 08/24/16 15:00 23:00 07:00 Intake Total 3860 ml 263 ml 82 ml Output Total 600 ml 950 ml 850 ml Balance 3260 ml -687 ml -768 ml SOLANGE ESPOSITO MD Aug 24, 2016 14:25
[2016-08-24] MEDS ORDERED: PHYTONADIONE (VIT K1) 10 MG in IV NORMAL SALINE 50ML 50 ML IV ONE (14:30)
[2016-08-24] MEDS: LEVOTHYROXINE SODIUM 50 MCG in IV NORMAL SALINE 50ML 5 ML IVP SCH (15:34)
[2016-08-24] MEDS: VASOPRESSIN 40 UNIT in IV DEXTROSE 5% 100 ML IV PRN (20:09)
[2016-08-24] MEDS: ACETAMINOPHEN 650 MG/20.3 ML SOLUTION. PEG PRN (20:52)
[2016-08-25] VITALS (25 sets, daily range): BP systolic 69–131; BP diastolic 55–97
[2016-08-25] MEDS: SODIUM BICARBONATE VIAL 150 MEQ in IV DEXTROSE 5% 1,000 ML IV SCH ×2 (00:25→08:05)
[2016-08-25] MEDS: PIPERACILLIN/TAZOBACTAM 3.375 GM in IV NORMAL SALINE 50ML 50 ML IV SCH ×4 (00:27→17:24)
[2016-08-25] MEDS: NOREPINEPHRINE VIAL 8 MG in IV NORMAL SALINE 250ML 250 ML IV PRN (00:28)
--- NOTE | 2016-08-25 03:36 | PN ---
DATE: SUBJECTIVE: I had a long discussion with the patient's mother and explained to her the critical illness including multisystem organ failure, septic shock, and respiratory failure with possible ARDS. I did discuss advanced directives and she states that the patient has suffered for a long time and at this point she would not want him to have any CPR or chest compression or electrical shocks in case he codes. I respect her decision. At this time, will continue with the present aggressive care and will make him a DNR. I have communicated this with the nurse, Monica. SADA CORTEZ MD DR: HARDEEP/mary carmen JOB#: [id number] / [id number]
--- NOTE | 2016-08-25 04:43 | CONS ---
DATE OF CONSULTATION: 08/24/2016 PATIENT'S ROOM: ICU 5. REQUESTING PHYSICIAN: Dr. Davis. REASON FOR CONSULTATION: Severe sepsis. HISTORY OF PRESENT ILLNESS: Currently, the patient is intubated, sedated, and unable to provide any past medical history. History of present illness and review of systems is obtained mainly from the chart. The patient is a 55-year-old -[place] gentleman with history of Down syndrome, who is cared for at home by his mother. He has a history of seizure disorder, brought to the Emergency Room with fever, nausea, vomiting at home. In the Emergency Room, he was found to be in acute renal failure with a creatinine of 2.5. White blood cell count was elevated at 11.5. He did have 67%, bands at one point additionally. His lactic acid was severely elevated at 20.4. He was admitted into the Intensive Care Unit, over the night he was intubated. He is on multiple pressors currently. I was contacted yesterday afternoon with regards to the admission, reviewed with his nurse ____, the antibiotics have been ordered vancomycin, Zosyn and levofloxacin x 1. White count today remains 8.4, he has 92% segs, but he had been started on hydrocortisone. Lactic acid still remains elevated at 12.2 this morning. Creatinine is 2.3. Influenza screen was negative. PAST MEDICAL HISTORY: Positive for history of anemia, arthritis, seizures, UTI, dysphagia, Down syndrome, PEG tube placement. In the past, he has had a CT scan of his chest performed approximately a year ago showed some diffuse reticular nodular opacity, trace effusions, some calcified granulomas, severe hydronephrosis. Also has a PEG tube. REVIEW OF SYSTEMS: Unobtainable. ALLERGIES: No known drug allergies. SOCIAL HISTORY: He lives at home, is cared by his mother. FAMILY HISTORY: Noncontributory. CURRENT MEDICATIONS: Include vancomycin, Zosyn, levofloxacin x 1, Keppra, Levophed, bisacodyl, Amidate, hydrocortisone. Other meds are available and reviewed in the chart. PHYSICAL EXAMINATION: VITAL SIGNS: T-max was 98.7 rectally, currently 95, pulse 126, respirations 27, blood pressure 72/64, he is ventilated, sating 98%. HEENT: His pupils are equal and reactive. Normal conjunctivae. NECK: Neck was without JVD. LUNGS: Have some crackles. HEART: Tachycardic S1, S2. ABDOMEN: Soft, no apparent tenderness. He has a PEG tube in place. Bowling is in place. He has hematuria. EXTREMITIES: No clubbing, cyanosis or gross edema. SKIN: Warm to touch without signs of rash. He has a PICC line, left upper extremity without signs of complications. LABORATORY VALUES: White count 8.4, hemoglobin 10.8, platelets of 140, neutrophils 92, lymphs 5. Lactic 12.2, creatinine 2.3, AST 76, ALT 46, alkaline phosphatase 42, albumin of 1.7. Urinalysis concerning for urinary tract infection. Influenza was negative. Most recent chest x-ray shows increased bilateral infiltrates. KUB shows increased stool, possible fecal impaction. IMPRESSION: 1. Severe sepsis. 2. Acute renal failure, now intubated. 3. Lactic acidosis. 4. Acute kidney injury with history of hydronephrosis. 5. Bandemia. 6. Hematuria with questionable urinary tract infection. 7. History of granulomas. RECOMMENDATIONS: Again, I agree with the Zosyn, levofloxacin was dosed x 1, given his renal failure this will last. We will continue the vancomycin for now, add micafungin. Await Renal followup. We will follow up labs in the morning and cultures. He needs a CT scan of the chest, abdomen and pelvis with his high acidosis, elevated creatinine kinase and questionable fecal impaction when he is more stable, but for now, we will order abdominal ultrasound. He did have an elevated creatinine kinase of 691. He may need bronchoscopy as well. Thank you for allowing me to see and participate in the patient's care. Should you have further questions, please do not hesitate to contact me. I spent 35 minutes of critical care time. ANETA SAINZ MD DR: KRISTOFER/mary carmen JOB#: [id number] / [id number]
[2016-08-25 05:09] LABS: BASO # 0.1 x10^3/uL (0.0-0.2); BASO % 1 % (0-3); EOS % 0 % (0-3); HEMATOCRIT 24.3 % (39.0-53.0); LYMPH # 0.9 x10^3/uL (1.0-4.8); LYMPH % 6 % (24-48); MEAN CORPUSCULAR HEMOGLOBIN 34 pg (25-35); MEAN CORPUSCULAR HGB CONC 33 g/dL (31-37); MEAN CORPUSCULAR VOLUME 104 fL (79-100); MONO % 2 % (0-9); NEUT % 91 % (31-73); PLATELET COUNT 98 x10^3/uL (140-400); RED BLOOD COUNT 2.35 x10^6/uL (4.30-5.70); WHITE BLOOD COUNT 13.8 x10^3/uL (4.0-11.0)
[2016-08-25 05:19] LABS: CALCIUM 7.5 mg/dL (8.5-10.1); GFR 42.3; POTASSIUM 3.2 mmol/L (3.5-5.1)
[2016-08-25 05:20] LABS: PROTHROMBIN TIME PATIENT 21.3 SEC (11.7-14.0)
[2016-08-25] MEDS: HYDROCORTISONE SOD SUCC/PF 100 MG/2 ML VIAL. IV SCH ×3 (06:26→22:01)
--- NOTE | 2016-08-25 07:25 | PDOC ---
Infectious Disease Note Subjective Subjective intubated/sedated ROS ROS Unobtainable Vital Sign Vital Signs Vital Signs Date Time Temp Pulse Resp B/P Pulse Ox O2 Delivery O2 Flow Rate FiO2 08/25/16 06:00 104 17 103/68 100 Ventilator 08/25/16 04:00 99.7 99.7 Physical Exam PHYSICAL EXAM GENERAL: Intubated HEENT: PERRL, OC/OP -ETT/OGT NECK: Supple, no JVD, no LN LUNGS: Clear HEART: S1S2, no gallop, no murmur ABD: Soft, NT, no organomegaly, no rebound/PEG Bowling EXT: No edema, no cyanosis SLINGER SEQUINS: Sedated SKIN: No rash IV: PICC LUE Labs Lab Laboratory Tests Test 08/24/16 09:04 08/25/16 04:45 08/25/16 05:34 O2 Saturation 99% (92-99) Arterial Blood pH 7.39 (7.35-7.45) Arterial Blood pCO2 at Patient Temp 21mmHg (35-46) Arterial Blood pO2 at Patient Temp 157mmHg (75-108) Arterial Blood HCO3 12mmol/L (21-28) Arterial Blood Base Excess -11mmol/L (-3-3) FiO2 80 White Blood Count 13.8x10^3/uL (4.0-11.0) Red Blood Count 2.35x10^6/uL (4.30-5.70) Hemoglobin 8.0g/dL (13.0-17.5) Hematocrit 24.3% (39.0-53.0) Mean Corpuscular Volume 104fL (79-100) Mean Corpuscular Hemoglobin 34pg (25-35) Mean Corpuscular Hemoglobin Concent 33g/dL (31-37) Red Cell Distribution Width 14.0% (11.5-14.5) Platelet Count 98x10^3/uL (140-400) Neutrophils (%) (Auto) 91% (31-73) Lymphocytes (%) (Auto) 6% (24-48) Monocytes (%) (Auto) 2% (0-9) Eosinophils (%) (Auto) 0% (0-3) Basophils (%) (Auto) 1% (0-3) Neutrophils # (Auto) 12.6x10^3uL (1.8-7.7) Lymphocytes # (Auto) 0.9x10^3/uL (1.0-4.8) Monocytes # (Auto) 0.3x10^3/uL (0.0-1.1) Eosinophils # (Auto) 0.0x10^3/uL (0.0-0.7) Basophils # (Auto) 0.1x10^3/uL (0.0-0.2) Prothrombin Time 21.3SEC (11.7-14.0) Prothromb Time International Ratio 2.0 (0.8-1.1) Sodium Level 150mmol/L (136-145) Potassium Level 3.2mmol/L (3.5-5.1) Chloride Level 104mmol/L (98-107) Carbon Dioxide Level 27mmol/L (21-32) Anion Gap 19 (6-14) Blood Urea Nitrogen 29mg/dL (8-26) Creatinine 2.0mg/dL (0.7-1.3) Estimated GFR (Cockcroft-Gault) 42.3 Glucose Level 398mg/dL (70-99) Lactic Acid Level 12.0mmol/L (0.4-2.0) Calcium Level 7.5mg/dL (8.5-10.1) Glucose (Fingerstick) 319mg/dL (70-99) Objective Assessment Severe Sepsis - Levophed of 2 but still increased Lactic acid Hyperglycemia ? early DIC vs sepsis with thrombocytopenia and coagulopathy Hydronephrosis on U/S - Urology consulted and pending. re-notified this am to be sure consult was conveyed Acute Resp failure - intubated Lactic acidosis MAHAD with h/o hydronephrosis Bandemia/leukocytosis - on Hydrocortisone Hematuria - ? UTI - Proteus H/o granulomas Plan Plan of Care Cont Zosyn/Vanc/Micafungin. Dosed Levoflox times one 08/23 redose today Glucose control F/u labs in am and cults Needs CT chest/abd/pelvis with high acidosis/CK and ? fecal impaction when stable Critically ill ANETA SAINZ MD Aug 25, 2016 07:25
[2016-08-25] MEDS ORDERED: DEXTROSE 50% 25 GM / 50ML DISP.SYRIN. IV PRN (07:30)
[2016-08-25] MEDS: ASPIRIN 325 MG TABLET PEG SCH (07:54)
[2016-08-25] MEDS ORDERED: INSULIN ASPART 300 UNITS/3 ML INSULN.PEN SQ ONE ×2 (08:00→12:45)
[2016-08-25] MEDS: IPRATRPIUM/ALBUTEROL 0.5/2.5MG 3 ML NEBU. NEB SCH ×4 (08:01→20:38)
[2016-08-25] MEDS: LEVETIRACETAM 500 MG in IV NORMAL SALINE 100ML 100 ML IV SCH ×2 (08:05→20:38)
[2016-08-25] MEDS: PANTOPRAZOLE IV PUSH 40 MG VIAL. IVP SCH (08:06)
[2016-08-25] MEDS: CHLORHEXIDINE 0.12% 15 ML MOUTHWASH. MM SCH ×2 (08:06→20:35)
[2016-08-25] MEDS: LEVOTHYROXINE SODIUM 50 MCG in IV NORMAL SALINE 50ML 5 ML IVP SCH (08:06)
[2016-08-25] MEDS: CHOLECALCIFEROL (VITAMIN D3) 1,000 UNIT TABLET PO SCH (08:06)
[2016-08-25] MEDS: VITAMIN B COMPLEX TABLET. PO SCH (08:06)
[2016-08-25] MEDS: INSULIN ASPART 300 UNITS/3 ML INSULN.PEN SQ SCH ×3 (08:07→17:23)
[2016-08-25] MEDS: MICAFUNGIN 100 MG in IV DEXTROSE 5% 100 ML IV SCH (08:09)
[2016-08-25 08:26] LABS: HCO3 ABG 26 mmol/L (21-28); PCO2 ABG 28 mmHg (35-46); PO2 ABG 72 mmHg (75-108); SAT O2 ABG 95 % (92-99)
[2016-08-25 08:29] LABS: FIO2 ABG 40; PH ABG 7.59 (7.35-7.45)
--- NOTE | 2016-08-25 10:05 | RAD ---
Portable chest, 08/25/2016: History: Respiratory failure, intubation Comparison is made to yesterday's study.. An ET tube remains in place with its tip located approximately 3 cm above the jennifer. A left PICC extends to the level of the atriocaval junction. The NG tube has been removed. The patient is rotated to the right. The heart is of normal size. There are moderate ongoing pulmonary infiltrates, right greater than left, essentially unchanged. No pneumothorax or significant pleural fluid is seen. IMPRESSION: 1. The ET tube and left PICC are in satisfactory positions. 2. Unchanged bilateral pulmonary infiltrates
--- NOTE | 2016-08-25 10:34 | PDOC ---
Renal-Progress Notes Subjective Notes Notes INTUBATED History of Present Illness Hx of present illness STABLE Vitals Vitals Vital Signs Date Time Temp Pulse Resp B/P Pulse Ox O2 Delivery O2 Flow Rate FiO2 08/25/16 10:00 105 11 81/56 100 Ventilator 08/25/16 08:00 98.1 98.1 Weight Weight [ ] I.O. Intake and Output Intake and Output 08/25/16 07:00 Intake Total 6630.2 ml Output Total 6250 ml Balance 380.2 ml Intake IV Total 5960.2 ml Tube Feeding 670 ml Output Urine Total 5900 ml Gastric Drainage Total 350 ml Labs Labs Laboratory Tests Test 08/25/16 04:45 08/25/16 05:34 08/25/16 07:25 08/25/16 08:15 White Blood Count 13.8x10^3/uL (4.0-11.0) Red Blood Count 2.35x10^6/uL (4.30-5.70) Hemoglobin 8.0g/dL (13.0-17.5) Hematocrit 24.3% (39.0-53.0) Mean Corpuscular Volume 104fL (79-100) Mean Corpuscular Hemoglobin 34pg (25-35) Mean Corpuscular Hemoglobin Concent 33g/dL (31-37) Red Cell Distribution Width 14.0% (11.5-14.5) Platelet Count 98x10^3/uL (140-400) Neutrophils (%) (Auto) 91% (31-73) Lymphocytes (%) (Auto) 6% (24-48) Monocytes (%) (Auto) 2% (0-9) Eosinophils (%) (Auto) 0% (0-3) Basophils (%) (Auto) 1% (0-3) Neutrophils # (Auto) 12.6x10^3uL (1.8-7.7) Lymphocytes # (Auto) 0.9x10^3/uL (1.0-4.8) Monocytes # (Auto) 0.3x10^3/uL (0.0-1.1) Eosinophils # (Auto) 0.0x10^3/uL (0.0-0.7) Basophils # (Auto) 0.1x10^3/uL (0.0-0.2) Prothrombin Time 21.3SEC (11.7-14.0) Prothromb Time International Ratio 2.0 (0.8-1.1) Sodium Level 150mmol/L (136-145) Potassium Level 3.2mmol/L (3.5-5.1) Chloride Level 104mmol/L (98-107) Carbon Dioxide Level 27mmol/L (21-32) Anion Gap 19 (6-14) Blood Urea Nitrogen 29mg/dL (8-26) Creatinine 2.0mg/dL (0.7-1.3) Estimated GFR (Cockcroft-Gault) 42.3 Glucose Level 398mg/dL (70-99) Lactic Acid Level 12.0mmol/L (0.4-2.0) Calcium Level 7.5mg/dL (8.5-10.1) Glucose (Fingerstick) 319mg/dL (70-99) 357mg/dL (70-99) O2 Saturation 95% (92-99) Arterial Blood pH 7.59 (7.35-7.45) Arterial Blood pCO2 at Patient Temp 28mmHg (35-46) Arterial Blood pO2 at Patient Temp 72mmHg (75-108) Arterial Blood HCO3 26mmol/L (21-28) Arterial Blood Base Excess 5mmol/L (-3-3) FiO2 40 Micro Micro Microbiology 08/23/16 Blood Culture - Preliminary, Resulted NO GROWTH AFTER 1 DAY 08/23/16 Urine Culture - Preliminary, Resulted 08/23/16 Urine Culture Result 1 (SHANON) - Preliminary, Resulted Review of Systems Constitutional: yes: no symptom reported Physical Exam General Appearance: no apparent distress Skin: warm Respiratory: decreased breath sounds Heart: S1S2, RRR Abdomen: soft, bowel sounds present Genitourinary: bladder flat Extremities: pulses present Musculoskeletal: Osteoarthritis Assessment Assessment IMP MAHAD-IMPROVING MET ACIDOSIS-RESOLVED HYPERNATREMIA HYPOKALEMIA SEPSIS RESP FAILURE PNEUMONIA PLAN REPLACE K STOP HCO3 GTT HYPOTONIC SALINE CONT TF CHRISTA HAMILTON MD Aug 25, 2016 10:34
[2016-08-25] MEDS: MIDAZOLAM PREMIX 100 ML IV PRN (10:50)
[2016-08-25] MEDS: IV 1/2 NORMAL SALINE 1,000 ML IV SCH (10:55)
[2016-08-25] MEDS ORDERED: POTASSIUM CHLORIDE 30 MEQ in IV 1/2 NORMAL SALINE 1,000 ML IV ONE (11:00)
[2016-08-25] MEDS: VANCOMYCIN PER PHARMACY MC PRN (13:04)
[2016-08-25] MEDS: VANCOMYCIN 1 GM in IV NORMAL SALINE 250ML 250 ML IV SCH (13:21)
--- NOTE | 2016-08-25 14:32 | PDOC ---
PULMONARY PROGRESS NOTES Subjective sedated Vitals Vital Signs Date Time Temp Pulse Resp B/P Pulse Ox O2 Delivery O2 Flow Rate FiO2 08/25/16 13:35 100 Ventilator 08/25/16 13:00 100 11 95/69 08/25/16 12:00 97.4 97.4 Lungs: Clear Cardiovascular: S1, S2 Abdomen: Soft Extremities: Other (some edema) Skin: Warm Labs Laboratory Tests Test 08/23/16 15:00 08/23/16 15:15 08/23/16 16:15 08/23/16 17:00 Nasal Screen MRSA (PCR) Negative (Negative) Sodium Level 147mmol/L (136-145) Potassium Level 4.9mmol/L (3.5-5.1) Chloride Level 105mmol/L (98-107) Carbon Dioxide Level 10mmol/L (21-32) Anion Gap 32 (6-14) Blood Urea Nitrogen 37mg/dL (8-26) Creatinine 2.5mg/dL (0.7-1.3) Estimated GFR (Cockcroft-Gault) 32.7 Glucose Level 197mg/dL (70-99) Lactic Acid Level 19.7mmol/L (0.4-2.0) Calcium Level 8.7mg/dL (8.5-10.1) Free Thyroxine 0.88ng/dL (0.76-1.46) Free Triiodothyronine (T3) pg/mL < 0.50pg/mL (2.18-3.98) O2 Saturation 84% (92-99) Arterial Blood pH 7.14 (7.35-7.45) Arterial Blood pCO2 at Patient Temp 21mmHg (35-46) Arterial Blood pO2 at Patient Temp 61mmHg (75-108) Arterial Blood HCO3 7mmol/L (21-28) Arterial Blood Base Excess -20mmol/L (-3-3) FiO2 21 Urine Collection Type Unknown Urine Color Red Urine Clarity Turbid Urine pH 7.5 Urine Specific Reading 1.015 Urine Protein >=300mg/dL (NEG-TRACE) Urine Glucose (UA) Negativemg/dL (NEG) Urine Ketones (Stick) Tracemg/dL (NEG) Urine Blood Large (NEG) Urine Nitrite Positive (NEG) Urine Bilirubin Small (NEG) Urine Urobilinogen Dipstick 1.0mg/dL (0.2 mg/dL) Urine Leukocyte Esterase Large (NEG) Urine RBC Tntc/HPF (0-2) Urine WBC Tntc/HPF (0-4) Urine Squamous Epithelial Cells None/LPF Urine Bacteria Many/HPF (0-FEW) Test 08/23/16 17:30 08/23/16 20:00 08/23/16 20:15 08/24/16 01:05 White Blood Count 10.9x10^3/uL (4.0-11.0) 9.5x10^3/uL (4.0-11.0) Red Blood Count 2.92x10^6/uL (4.30-5.70) 3.03x10^6/uL (4.30-5.70) Hemoglobin 10.2g/dL (13.0-17.5) 10.5g/dL (13.0-17.5) Hematocrit 30.8% (39.0-53.0) 32.6% (39.0-53.0) Mean Corpuscular Volume 105fL (79-100) 107fL (79-100) Mean Corpuscular Hemoglobin 35pg (25-35) 35pg (25-35) Mean Corpuscular Hemoglobin Concent 33g/dL (31-37) 32g/dL (31-37) Red Cell Distribution Width 14.3% (11.5-14.5) 14.2% (11.5-14.5) Platelet Count 140x10^3/uL (140-400) 142x10^3/uL (140-400) Neutrophils (%) (Auto) 93% (31-73) Lymphocytes (%) (Auto) 6% (24-48) Monocytes (%) (Auto) 1% (0-9) Eosinophils (%) (Auto) 0% (0-3) Basophils (%) (Auto) 0% (0-3) Neutrophils # (Auto) 10.1x10^3uL (1.8-7.7) Lymphocytes # (Auto) 0.6x10^3/uL (1.0-4.8) Monocytes # (Auto) 0.1x10^3/uL (0.0-1.1) Eosinophils # (Auto) 0.0x10^3/uL (0.0-0.7) Basophils # (Auto) 0.0x10^3/uL (0.0-0.2) Prothrombin Time 20.8SEC (11.7-14.0) 21.2SEC (11.7-14.0) Prothromb Time International Ratio 1.9 (0.8-1.1) 2.0 (0.8-1.1) O2 Saturation 85% (92-99) Arterial Blood pH 7.30 (7.35-7.45) Arterial Blood pCO2 at Patient Temp 21mmHg (35-46) Arterial Blood pO2 at Patient Temp 53mmHg (75-108) Arterial Blood HCO3 10mmol/L (21-28) Arterial Blood Base Excess -15mmol/L (-3-3) FiO2 40 Sodium Level 148mmol/L (136-145) Potassium Level 4.4mmol/L (3.5-5.1) Chloride Level 109mmol/L (98-107) Carbon Dioxide Level 13mmol/L (21-32) Anion Gap 26 (6-14) Blood Urea Nitrogen 34mg/dL (8-26) Creatinine 2.4mg/dL (0.7-1.3) Estimated GFR (Cockcroft-Gault) 34.3 Glucose Level 182mg/dL (70-99) Lactic Acid Level 14.4mmol/L (0.4-2.0) 12.7mmol/L (0.4-2.0) Calcium Level 7.3mg/dL (8.5-10.1) Troponin I Quantitative 0.031ng/mL (0.000-0.055) 0.055ng/mL (0.000-0.055) Test 08/24/16 03:48 08/24/16 04:50 08/24/16 05:52 08/24/16 09:04 O2 Saturation 82% (92-99) 99% (92-99) 99% (92-99) Arterial Blood pH 7.23 (7.35-7.45) 7.42 (7.35-7.45) 7.39 (7.35-7.45) Arterial Blood pH (Temp corrected) 7.21 Arterial Blood pCO2 at Patient Temp 42mmHg (35-46) 23mmHg (35-46) 21mmHg (35-46) Arterial Blood pCO2 (Temp correct) 45mmHg Arterial Blood pO2 at Patient Temp 56mmHg (75-108) 161mmHg (75-108) 157mmHg (75-108) Arterial Blood pO2 (Temp corrected) 61mmHg Arterial Blood HCO3 17mmol/L (21-28) 15mmol/L (21-28) 12mmol/L (21-28) Arterial Blood Base Excess -10mmol/L (-3-3) -8mmol/L (-3-3) -11mmol/L (-3-3) FiO2 50 100 80 White Blood Count 8.4x10^3/uL (4.0-11.0) Red Blood Count 3.14x10^6/uL (4.30-5.70) Hemoglobin 10.8g/dL (13.0-17.5) Hematocrit 33.3% (39.0-53.0) Mean Corpuscular Volume 106fL (79-100) Mean Corpuscular Hemoglobin 34pg (25-35) Mean Corpuscular Hemoglobin Concent 32g/dL (31-37) Red Cell Distribution Width 14.2% (11.5-14.5) Platelet Count 140x10^3/uL (140-400) Neutrophils (%) (Auto) 92% (31-73) Lymphocytes (%) (Auto) 5% (24-48) Monocytes (%) (Auto) 2% (0-9) Eosinophils (%) (Auto) 0% (0-3) Basophils (%) (Auto) 1% (0-3) Neutrophils # (Auto) 7.8x10^3uL (1.8-7.7) Lymphocytes # (Auto) 0.4x10^3/uL (1.0-4.8) Monocytes # (Auto) 0.2x10^3/uL (0.0-1.1) Eosinophils # (Auto) 0.0x10^3/uL (0.0-0.7) Basophils # (Auto) 0.0x10^3/uL (0.0-0.2) Sodium Level 146mmol/L (136-145) Potassium Level 4.8mmol/L (3.5-5.1) Chloride Level 107mmol/L (98-107) Carbon Dioxide Level 18mmol/L (21-32) Anion Gap 21 (6-14) Blood Urea Nitrogen 38mg/dL (8-26) Creatinine 2.3mg/dL (0.7-1.3) Estimated GFR (Cockcroft-Gault) 36.0 BUN/Creatinine Ratio 17 (6-20) Glucose Level 162mg/dL (70-99) Lactic Acid Level 12.2mmol/L (0.4-2.0) Calcium Level 7.6mg/dL (8.5-10.1) Total Bilirubin 0.9mg/dL (0.2-1.0) Aspartate Amino Transf (AST/SGOT) 76U/L (15-37) Alanine Aminotransferase (ALT/SGPT) 46U/L (16-63) Alkaline Phosphatase 42U/L (46-116) Total Protein 6.0g/dL (6.4-8.2) Albumin 1.7g/dL (3.4-5.0) Albumin/Globulin Ratio 0.4 (1.0-1.7) Test 08/25/16 04:45 08/25/16 05:34 08/25/16 07:25 08/25/16 08:15 White Blood Count 13.8x10^3/uL (4.0-11.0) Red Blood Count 2.35x10^6/uL (4.30-5.70) Hemoglobin 8.0g/dL (13.0-17.5) Hematocrit 24.3% (39.0-53.0) Mean Corpuscular Volume 104fL (79-100) Mean Corpuscular Hemoglobin 34pg (25-35) Mean Corpuscular Hemoglobin Concent 33g/dL (31-37) Red Cell Distribution Width 14.0% (11.5-14.5) Platelet Count 98x10^3/uL (140-400) Neutrophils (%) (Auto) 91% (31-73) Lymphocytes (%) (Auto) 6% (24-48) Monocytes (%) (Auto) 2% (0-9) Eosinophils (%) (Auto) 0% (0-3) Basophils (%) (Auto) 1% (0-3) Neutrophils # (Auto) 12.6x10^3uL (1.8-7.7) Lymphocytes # (Auto) 0.9x10^3/uL (1.0-4.8) Monocytes # (Auto) 0.3x10^3/uL (0.0-1.1) Eosinophils # (Auto) 0.0x10^3/uL (0.0-0.7) Basophils # (Auto) 0.1x10^3/uL (0.0-0.2) Prothrombin Time 21.3SEC (11.7-14.0) Prothromb Time International Ratio 2.0 (0.8-1.1) Sodium Level 150mmol/L (136-145) Potassium Level 3.2mmol/L (3.5-5.1) Chloride Level 104mmol/L (98-107) Carbon Dioxide Level 27mmol/L (21-32) Anion Gap 19 (6-14) Blood Urea Nitrogen 29mg/dL (8-26) Creatinine 2.0mg/dL (0.7-1.3) Estimated GFR (Cockcroft-Gault) 42.3 Glucose Level 398mg/dL (70-99) Lactic Acid Level 12.0mmol/L (0.4-2.0) Calcium Level 7.5mg/dL (8.5-10.1) Glucose (Fingerstick) 319mg/dL (70-99) 357mg/dL (70-99) O2 Saturation 95% (92-99) Arterial Blood pH 7.59 (7.35-7.45) Arterial Blood pCO2 at Patient Temp 28mmHg (35-46) Arterial Blood pO2 at Patient Temp 72mmHg (75-108) Arterial Blood HCO3 26mmol/L (21-28) Arterial Blood Base Excess 5mmol/L (-3-3) FiO2 40 Test 08/25/16 12:09 08/25/16 12:10 Glucose (Fingerstick) 387mg/dL (70-99) Vancomycin Level Trough 9.0mcg/mL (10.0-20.0) Vancomycin Last Dose Date 08/24/16 Vancomycin Last Dose Time 1300 Laboratory Tests Test 08/25/16 04:45 08/25/16 05:34 08/25/16 07:25 08/25/16 08:15 White Blood Count 13.8x10^3/uL (4.0-11.0) Red Blood Count 2.35x10^6/uL (4.30-5.70) Hemoglobin 8.0g/dL (13.0-17.5) Hematocrit 24.3% (39.0-53.0) Mean Corpuscular Volume 104fL (79-100) Mean Corpuscular Hemoglobin 34pg (25-35) Mean Corpuscular Hemoglobin Concent 33g/dL (31-37) Red Cell Distribution Width 14.0% (11.5-14.5) Platelet Count 98x10^3/uL (140-400) Neutrophils (%) (Auto) 91% (31-73) Lymphocytes (%) (Auto) 6% (24-48) Monocytes (%) (Auto) 2% (0-9) Eosinophils (%) (Auto) 0% (0-3) Basophils (%) (Auto) 1% (0-3) Neutrophils # (Auto) 12.6x10^3uL (1.8-7.7) Lymphocytes # (Auto) 0.9x10^3/uL (1.0-4.8) Monocytes # (Auto) 0.3x10^3/uL (0.0-1.1) Eosinophils # (Auto) 0.0x10^3/uL (0.0-0.7) Basophils # (Auto) 0.1x10^3/uL (0.0-0.2) Prothrombin Time 21.3SEC (11.7-14.0) Prothromb Time International Ratio 2.0 (0.8-1.1) Sodium Level 150mmol/L (136-145) Potassium Level 3.2mmol/L (3.5-5.1) Chloride Level 104mmol/L (98-107) Carbon Dioxide Level 27mmol/L (21-32) Anion Gap 19 (6-14) Blood Urea Nitrogen 29mg/dL (8-26) Creatinine 2.0mg/dL (0.7-1.3) Estimated GFR (Cockcroft-Gault) 42.3 Glucose Level 398mg/dL (70-99) Lactic Acid Level 12.0mmol/L (0.4-2.0) Calcium Level 7.5mg/dL (8.5-10.1) Glucose (Fingerstick) 319mg/dL (70-99) 357mg/dL (70-99) O2 Saturation 95% (92-99) Arterial Blood pH 7.59 (7.35-7.45) Arterial Blood pCO2 at Patient Temp 28mmHg (35-46) Arterial Blood pO2 at Patient Temp 72mmHg (75-108) Arterial Blood HCO3 26mmol/L (21-28) Arterial Blood Base Excess 5mmol/L (-3-3) FiO2 40 Test 08/25/16 12:09 08/25/16 12:10 Glucose (Fingerstick) 387mg/dL (70-99) Vancomycin Level Trough 9.0mcg/mL (10.0-20.0) Vancomycin Last Dose Date 08/24/16 Vancomycin Last Dose Time 1300 Medications Active Scripts Medications Dose Route/Sig Days Date Category Milk Of Magnesia (Magnesium Hydroxide) 2,400 Mg/10 Ml Oral.susp 2,400 Mg PO DAILY PRN 08/21/15 Reported Dulcolax (Bisacodyl) 10 Mg Supp.rect 10 Mg RC PRN DAILY PRN 08/21/15 Reported Aspirin 325 Mg Tablet 1 Tab PEG DAILY 08/02/15 Reported Tylenol (Acetaminophen) 325 Mg Tablet 2 Tab PO PRN Q6HRS PRN 08/02/15 Reported Vitamin B Complex 1 Each Tablet 1 Tab PO DAILY 07/25/15 Reported Vitamin D3 (Cholecalciferol (Vitamin D3)) 1,000 Unit Tablet 2,000 Unit PO DAILY 07/25/15 Reported Keppra (Levetiracetam) 500 Mg Tablet 500 Mg PO BID 07/25/15 Reported Impression . IMPRESSION: 1. Acute hypoxic respiratory failure secondary septic shock 2. Septic shock cultures pending 3. Abnormal chest x-ray with initial x-ray showing infiltrate 4. Acute severe metabolic acidosis with severe lactic acidosis secondary to sepsis/septic shock. MAHAD contributing to metabolic acidosis. 5. Hematuria 6. Urinary tract infection. 7. Coagulopathy, most likely related to early disseminated intravascular coagulation. 8. Underlying Down's syndrome 9. Dysphagia S/P PEG Plan . Pt still on Levo, bicarbonate drip and vasoproessin on AC mode 40 % 1. AC mode ABG noted, will d/c bicarbonate 2. Broad spectrum antibiotics per ID 3. follow nephro rec 4. nutrition per PEG 5. Titrate pressors continue vasopressin 6. Monitor PT and INR. 7. Monitor platelets. 8. Add Solucortef 9. Follow Urology recommendations. Total CCt 30 minutes ERINN HORN MD Aug 25, 2016 14:32
[2016-08-25] MEDS: VASOPRESSIN 40 UNIT in IV DEXTROSE 5% 100 ML IV PRN (14:34)
--- NOTE | 2016-08-25 15:41 | PDOC ---
PROGRESS NOTES Chief Complaint Chief Complaint 1. Severe SEPSIS infectious in origin (PNA) with HIGH LACTATE and ORGAN dysfunction (HYPOTENSION) 2. PNEUMONIA, bed bound, gram pos, gram neg, anaerobes, ASPIRATION highly likely 3. BED bound, non verbal, hx down's hx CVA 4. DYsphagia, indwelling PEG 5. OLiguric renal failure 6. MAHAD, vasomotor 7. GAp metabolic acidosis, recent vomiting, severe sepsis 8. hypothyroidism 9. down syndrome History of Present Illness History of Present Illness Patient seen in ICU with family at bedside. On ventilator: AC/10; TV 500; 40% FiO2; PEEP 5; Sat 100%. Currently on Levophed, Versed, and Vasopressin drips. Lactic acid still elevated at over 12. Vitals Vitals Vital Signs Date Time Temp Pulse Resp B/P Pulse Ox O2 Delivery O2 Flow Rate FiO2 08/25/16 15:00 103 9 80/55 100 Ventilator 08/25/16 12:00 97.4 97.4 Physical Exam Physical Exam intubated, sedated General: Other (SEDATED) Heart: Regular rate Lungs: Clear Abdomen: Normal bowel sounds, Soft Extremities: No clubbing Skin: No breakdown Labs LABS Laboratory Tests Test 08/25/16 04:45 08/25/16 05:34 08/25/16 07:25 08/25/16 08:15 White Blood Count 13.8x10^3/uL (4.0-11.0) Red Blood Count 2.35x10^6/uL (4.30-5.70) Hemoglobin 8.0g/dL (13.0-17.5) Hematocrit 24.3% (39.0-53.0) Mean Corpuscular Volume 104fL (79-100) Mean Corpuscular Hemoglobin 34pg (25-35) Mean Corpuscular Hemoglobin Concent 33g/dL (31-37) Red Cell Distribution Width 14.0% (11.5-14.5) Platelet Count 98x10^3/uL (140-400) Neutrophils (%) (Auto) 91% (31-73) Lymphocytes (%) (Auto) 6% (24-48) Monocytes (%) (Auto) 2% (0-9) Eosinophils (%) (Auto) 0% (0-3) Basophils (%) (Auto) 1% (0-3) Neutrophils # (Auto) 12.6x10^3uL (1.8-7.7) Lymphocytes # (Auto) 0.9x10^3/uL (1.0-4.8) Monocytes # (Auto) 0.3x10^3/uL (0.0-1.1) Eosinophils # (Auto) 0.0x10^3/uL (0.0-0.7) Basophils # (Auto) 0.1x10^3/uL (0.0-0.2) Prothrombin Time 21.3SEC (11.7-14.0) Prothromb Time International Ratio 2.0 (0.8-1.1) Sodium Level 150mmol/L (136-145) Potassium Level 3.2mmol/L (3.5-5.1) Chloride Level 104mmol/L (98-107) Carbon Dioxide Level 27mmol/L (21-32) Anion Gap 19 (6-14) Blood Urea Nitrogen 29mg/dL (8-26) Creatinine 2.0mg/dL (0.7-1.3) Estimated GFR (Cockcroft-Gault) 42.3 Glucose Level 398mg/dL (70-99) Lactic Acid Level 12.0mmol/L (0.4-2.0) Calcium Level 7.5mg/dL (8.5-10.1) Glucose (Fingerstick) 319mg/dL (70-99) 357mg/dL (70-99) O2 Saturation 95% (92-99) Arterial Blood pH 7.59 (7.35-7.45) Arterial Blood pCO2 at Patient Temp 28mmHg (35-46) Arterial Blood pO2 at Patient Temp 72mmHg (75-108) Arterial Blood HCO3 26mmol/L (21-28) Arterial Blood Base Excess 5mmol/L (-3-3) FiO2 40 Test 08/25/16 12:09 08/25/16 12:10 Glucose (Fingerstick) 387mg/dL (70-99) Vancomycin Level Trough 9.0mcg/mL (10.0-20.0) Vancomycin Last Dose Date 08/24/16 Vancomycin Last Dose Time 1300 Review of Systems Review of Systems afebrile. otherwise unobtainable as pt sedated. Assessment and Plan Assessmemt and Plan ASSESSMENT: 1. Severe SEPSIS infectious in origin (PNA) with HIGH LACTATE and ORGAN dysfunction (HYPOTENSION) 2. PNEUMONIA, bed bound, gram pos, gram neg, anaerobes, ASPIRATION highly likely 3. BED bound, non verbal, hx down's hx CVA 4. DYsphagia, indwelling PEG 5. OLiguric renal failure 6. MAHAD, vasomotor 7. GAp metabolic acidosis, recent vomiting, severe sepsis 8. hypothyroidism 9. down syndrome PLAN: - replace K+ 3.2; KCl 30 mEq - Per ID: cont zosyn/vanc/micafungin - lactic acid remains elevated 12.0 - recheck labs - cont mechanical ventilation - cont tube feeding - appreciate subspecialty input Problems: Comment Review of Relevant I have reviewed the following items kassie (where applicable) has been applied. Labs Laboratory Tests Test 08/23/16 16:15 08/23/16 17:00 08/23/16 17:30 08/23/16 20:00 O2 Saturation 84% (92-99) 85% (92-99) Arterial Blood pH 7.14 (7.35-7.45) 7.30 (7.35-7.45) Arterial Blood pCO2 at Patient Temp 21mmHg (35-46) 21mmHg (35-46) Arterial Blood pO2 at Patient Temp 61mmHg (75-108) 53mmHg (75-108) Arterial Blood HCO3 7mmol/L (21-28) 10mmol/L (21-28) Arterial Blood Base Excess -20mmol/L (-3-3) -15mmol/L (-3-3) FiO2 21 40 Urine Collection Type Unknown Urine Color Red Urine Clarity Turbid Urine pH 7.5 Urine Specific [place] 1.015 Urine Protein >=300mg/dL (NEG-TRACE) Urine Glucose (UA) Negativemg/dL (NEG) Urine Ketones (Stick) Tracemg/dL (NEG) Urine Blood Large (NEG) Urine Nitrite Positive (NEG) Urine Bilirubin Small (NEG) Urine Urobilinogen Dipstick 1.0mg/dL (0.2 mg/dL) Urine Leukocyte Esterase Large (NEG) Urine RBC Tntc/HPF (0-2) Urine WBC Tntc/HPF (0-4) Urine Squamous Epithelial Cells None/LPF Urine Bacteria Many/HPF (0-FEW) White Blood Count 10.9x10^3/uL (4.0-11.0) Red Blood Count 2.92x10^6/uL (4.30-5.70) Hemoglobin 10.2g/dL (13.0-17.5) Hematocrit 30.8% (39.0-53.0) Mean Corpuscular Volume 105fL (79-100) Mean Corpuscular Hemoglobin 35pg (25-35) Mean Corpuscular Hemoglobin Concent 33g/dL (31-37) Red Cell Distribution Width 14.3% (11.5-14.5) Platelet Count 140x10^3/uL (140-400) Neutrophils (%) (Auto) 93% (31-73) Lymphocytes (%) (Auto) 6% (24-48) Monocytes (%) (Auto) 1% (0-9) Eosinophils (%) (Auto) 0% (0-3) Basophils (%) (Auto) 0% (0-3) Neutrophils # (Auto) 10.1x10^3uL (1.8-7.7) Lymphocytes # (Auto) 0.6x10^3/uL (1.0-4.8) Monocytes # (Auto) 0.1x10^3/uL (0.0-1.1) Eosinophils # (Auto) 0.0x10^3/uL (0.0-0.7) Basophils # (Auto) 0.0x10^3/uL (0.0-0.2) Prothrombin Time 20.8SEC (11.7-14.0) Prothromb Time International Ratio 1.9 (0.8-1.1) Test 08/23/16 20:15 08/24/16 01:05 08/24/16 03:48 08/24/16 04:50 White Blood Count 9.5x10^3/uL (4.0-11.0) 8.4x10^3/uL (4.0-11.0) Red Blood Count 3.03x10^6/uL (4.30-5.70) 3.14x10^6/uL (4.30-5.70) Hemoglobin 10.5g/dL (13.0-17.5) 10.8g/dL (13.0-17.5) Hematocrit 32.6% (39.0-53.0) 33.3% (39.0-53.0) Mean Corpuscular Volume 107fL (79-100) 106fL (79-100) Mean Corpuscular Hemoglobin 35pg (25-35) 34pg (25-35) Mean Corpuscular Hemoglobin Concent 32g/dL (31-37) 32g/dL (31-37) Red Cell Distribution Width 14.2% (11.5-14.5) 14.2% (11.5-14.5) Platelet Count 142x10^3/uL (140-400) 140x10^3/uL (140-400) Sodium Level 148mmol/L (136-145) 146mmol/L (136-145) Potassium Level 4.4mmol/L (3.5-5.1) 4.8mmol/L (3.5-5.1) Chloride Level 109mmol/L (98-107) 107mmol/L (98-107) Carbon Dioxide Level 13mmol/L (21-32) 18mmol/L (21-32) Anion Gap 26 (6-14) 21 (6-14) Blood Urea Nitrogen 34mg/dL (8-26) 38mg/dL (8-26) Creatinine 2.4mg/dL (0.7-1.3) 2.3mg/dL (0.7-1.3) Estimated GFR (Cockcroft-Gault) 34.3 36.0 Glucose Level 182mg/dL (70-99) 162mg/dL (70-99) Lactic Acid Level 14.4mmol/L (0.4-2.0) 12.7mmol/L (0.4-2.0) 12.2mmol/L (0.4-2.0) Calcium Level 7.3mg/dL (8.5-10.1) 7.6mg/dL (8.5-10.1) Troponin I Quantitative 0.031ng/mL (0.000-0.055) 0.055ng/mL (0.000-0.055) Prothrombin Time 21.2SEC (11.7-14.0) Prothromb Time International Ratio 2.0 (0.8-1.1) O2 Saturation 82% (92-99) Arterial Blood pH 7.23 (7.35-7.45) Arterial Blood pH (Temp corrected) 7.21 Arterial Blood pCO2 at Patient Temp 42mmHg (35-46) Arterial Blood pCO2 (Temp correct) 45mmHg Arterial Blood pO2 at Patient Temp 56mmHg (75-108) Arterial Blood pO2 (Temp corrected) 61mmHg Arterial Blood HCO3 17mmol/L (21-28) Arterial Blood Base Excess -10mmol/L (-3-3) FiO2 50 Neutrophils (%) (Auto) 92% (31-73) Lymphocytes (%) (Auto) 5% (24-48) Monocytes (%) (Auto) 2% (0-9) Eosinophils (%) (Auto) 0% (0-3) Basophils (%) (Auto) 1% (0-3) Neutrophils # (Auto) 7.8x10^3uL (1.8-7.7) Lymphocytes # (Auto) 0.4x10^3/uL (1.0-4.8) Monocytes # (Auto) 0.2x10^3/uL (0.0-1.1) Eosinophils # (Auto) 0.0x10^3/uL (0.0-0.7) Basophils # (Auto) 0.0x10^3/uL (0.0-0.2) BUN/Creatinine Ratio 17 (6-20) Total Bilirubin 0.9mg/dL (0.2-1.0) Aspartate Amino Transf (AST/SGOT) 76U/L (15-37) Alanine Aminotransferase (ALT/SGPT) 46U/L (16-63) Alkaline Phosphatase 42U/L (46-116) Total Protein 6.0g/dL (6.4-8.2) Albumin 1.7g/dL (3.4-5.0) Albumin/Globulin Ratio 0.4 (1.0-1.7) Test 08/24/16 05:52 08/24/16 09:04 08/25/16 04:45 08/25/16 05:34 O2 Saturation 99% (92-99) 99% (92-99) Arterial Blood pH 7.42 (7.35-7.45) 7.39 (7.35-7.45) Arterial Blood pCO2 at Patient Temp 23mmHg (35-46) 21mmHg (35-46) Arterial Blood pO2 at Patient Temp 161mmHg (75-108) 157mmHg (75-108) Arterial Blood HCO3 15mmol/L (21-28) 12mmol/L (21-28) Arterial Blood Base Excess -8mmol/L (-3-3) -11mmol/L (-3-3) FiO2 100 80 White Blood Count 13.8x10^3/uL (4.0-11.0) Red Blood Count 2.35x10^6/uL (4.30-5.70) Hemoglobin 8.0g/dL (13.0-17.5) Hematocrit 24.3% (39.0-53.0) Mean Corpuscular Volume 104fL (79-100) Mean Corpuscular Hemoglobin 34pg (25-35) Mean Corpuscular Hemoglobin Concent 33g/dL (31-37) Red Cell Distribution Width 14.0% (11.5-14.5) Platelet Count 98x10^3/uL (140-400) Neutrophils (%) (Auto) 91% (31-73) Lymphocytes (%) (Auto) 6% (24-48) Monocytes (%) (Auto) 2% (0-9) Eosinophils (%) (Auto) 0% (0-3) Basophils (%) (Auto) 1% (0-3) Neutrophils # (Auto) 12.6x10^3uL (1.8-7.7) Lymphocytes # (Auto) 0.9x10^3/uL (1.0-4.8) Monocytes # (Auto) 0.3x10^3/uL (0.0-1.1) Eosinophils # (Auto) 0.0x10^3/uL (0.0-0.7) Basophils # (Auto) 0.1x10^3/uL (0.0-0.2) Prothrombin Time 21.3SEC (11.7-14.0) Prothromb Time International Ratio 2.0 (0.8-1.1) Sodium Level 150mmol/L (136-145) Potassium Level 3.2mmol/L (3.5-5.1) Chloride Level 104mmol/L (98-107) Carbon Dioxide Level 27mmol/L (21-32) Anion Gap 19 (6-14) Blood Urea Nitrogen 29mg/dL (8-26) Creatinine 2.0mg/dL (0.7-1.3) Estimated GFR (Cockcroft-Gault) 42.3 Glucose Level 398mg/dL (70-99) Lactic Acid Level 12.0mmol/L (0.4-2.0) Calcium Level 7.5mg/dL (8.5-10.1) Glucose (Fingerstick) 319mg/dL (70-99) Test 08/25/16 07:25 08/25/16 08:15 08/25/16 12:09 08/25/16 12:10 Glucose (Fingerstick) 357mg/dL (70-99) 387mg/dL (70-99) O2 Saturation 95% (92-99) Arterial Blood pH 7.59 (7.35-7.45) Arterial Blood pCO2 at Patient Temp 28mmHg (35-46) Arterial Blood pO2 at Patient Temp 72mmHg (75-108) Arterial Blood HCO3 26mmol/L (21-28) Arterial Blood Base Excess 5mmol/L (-3-3) FiO2 40 Vancomycin Level Trough 9.0mcg/mL (10.0-20.0) Vancomycin Last Dose Date 08/24/16 Vancomycin Last Dose Time 1300 Laboratory Tests Test 08/25/16 04:45 08/25/16 05:34 08/25/16 07:25 08/25/16 08:15 White Blood Count 13.8x10^3/uL (4.0-11.0) Red Blood Count 2.35x10^6/uL (4.30-5.70) Hemoglobin 8.0g/dL (13.0-17.5) Hematocrit 24.3% (39.0-53.0) Mean Corpuscular Volume 104fL (79-100) Mean Corpuscular Hemoglobin 34pg (25-35) Mean Corpuscular Hemoglobin Concent 33g/dL (31-37) Red Cell Distribution Width 14.0% (11.5-14.5) Platelet Count 98x10^3/uL (140-400) Neutrophils (%) (Auto) 91% (31-73) Lymphocytes (%) (Auto) 6% (24-48) Monocytes (%) (Auto) 2% (0-9) Eosinophils (%) (Auto) 0% (0-3) Basophils (%) (Auto) 1% (0-3) Neutrophils # (Auto) 12.6x10^3uL (1.8-7.7) Lymphocytes # (Auto) 0.9x10^3/uL (1.0-4.8) Monocytes # (Auto) 0.3x10^3/uL (0.0-1.1) Eosinophils # (Auto) 0.0x10^3/uL (0.0-0.7) Basophils # (Auto) 0.1x10^3/uL (0.0-0.2) Prothrombin Time 21.3SEC (11.7-14.0) Prothromb Time International Ratio 2.0 (0.8-1.1) Sodium Level 150mmol/L (136-145) Potassium Level 3.2mmol/L (3.5-5.1) Chloride Level 104mmol/L (98-107) Carbon Dioxide Level 27mmol/L (21-32) Anion Gap 19 (6-14) Blood Urea Nitrogen 29mg/dL (8-26) Creatinine 2.0mg/dL (0.7-1.3) Estimated GFR (Cockcroft-Gault) 42.3 Glucose Level 398mg/dL (70-99) Lactic Acid Level 12.0mmol/L (0.4-2.0) Calcium Level 7.5mg/dL (8.5-10.1) Glucose (Fingerstick) 319mg/dL (70-99) 357mg/dL (70-99) O2 Saturation 95% (92-99) Arterial Blood pH 7.59 (7.35-7.45) Arterial Blood pCO2 at Patient Temp 28mmHg (35-46) Arterial Blood pO2 at Patient Temp 72mmHg (75-108) Arterial Blood HCO3 26mmol/L (21-28) Arterial Blood Base Excess 5mmol/L (-3-3) FiO2 40 Test 08/25/16 12:09 08/25/16 12:10 Glucose (Fingerstick) 387mg/dL (70-99) Vancomycin Level Trough 9.0mcg/mL (10.0-20.0) Vancomycin Last Dose Date 08/24/16 Vancomycin Last Dose Time 1300 Microbiology 08/23/16 Blood Culture - Preliminary, Resulted NO GROWTH AFTER 2 DAYS 08/23/16 Urine Culture - Preliminary, Resulted 08/23/16 Urine Culture Result 1 (SHANON) - Preliminary, Resulted Medications Current Medications Sodium Chloride 1,000 ml @ 1,000 mls/hr 1X ONCE IV Last administered on 11:16; Start 08/23/16 at 11:15; Stop 08/23/16 at 12:14; Status DC Sodium Chloride (Iv Sodium Chloride 0.9% 1000ml Bag) 1,000 ml @ 1,000 mls/hr 1X ONCE IV Last administered on 08/23/16 11:30; Start 08/23/16 at 11:30; Stop 08/23/16 at 12:29; Status DC Vancomycin HCl (Vanco Per Pharmacy) 1 each PRN DAILY PRN MC SEE COMMENTS Last administered on 08/25/16 13:04; Start 08/23/16 at 11:30 Piperacillin Sod/ Tazobactam Sod 1 each 1 each PRN DAILY PRN MC SEE COMMENTS; Start 08/23/16 at 11:30; Stop 08/25/16 at 09:54; Status DC Levofloxacin/ Dextrose 100 ml @ 100 mls/hr 1X ONCE IV Last administered on 12:58; Start 08/23/16 at 11:30; Stop 08/23/16 at 12:29; Status DC Piperacillin Sod/ Tazobactam Sod 4.5 gm/Sodium Chloride 100 ml @ 200 mls/hr 1X ONCE IV Last administered on 08/23/16 12:00; Start 08/23/16 at 12:00; Stop 08/23/16 at 12:29; Status DC Vancomycin HCl 1.5 gm/Sodium Chloride 500 ml @ 250 mls/hr 1X ONCE IV Last administered on 08/23/16 12:30; Start 08/23/16 at 12:30; Stop 08/23/16 at 14:29 ; Status DC Sodium Chloride 1,000 ml @ 1,000 mls/hr 1X ONCE IV Last administered on 12:46; Start 08/23/16 at 12:30; Stop 08/23/16 at 13:29; Status DC Piperacillin Sod/ Tazobactam Sod 3.375 gm/Sodium Chloride 50 ml @ 100 mls/hr Q6HRS IV Last administered on 08/25/16 12:43; Start 08/23/16 at 18:00 Vancomycin HCl/ Sodium Chloride (Iv Sodium Chloride 0.9% 250ml) 250 ml @ 250 mls/hr Q24H IV ; Start 08/24/16 at 13:00; Status Cancel Vancomycin HCl 1 each 1X ONCE MC ; Start 08/25/16 at 12:30; Stop 08/25/16 at 12: 31; Status DC Labetalol HCl (Normodyne) 10 mg PRN Q2HR PRN IVP HYPERTENSION, SEE COMMENTS; Start 08/23/16 at 15:45 Aspirin (Luis Armando Aspirin) 325 mg DAILY PEG ; Start 08/24/16 at 09:00 Bisacodyl (Dulcolax Supp) 10 mg PRN DAILY PRN RC CONSTIPATION; Start 08/23/16 at 15:45 Vitamin D (Vitamin D3) 2,000 unit DAILY PO Last administered on 08/25/16 08:06 ; Start 08/24/16 at 09:00 Levetiracetam (Keppra) 500 mg BID PO ; Start 08/23/16 at 21:00; Stop 08/23/16 at 21:00; Status DC Vitamin B Complex (Hector B) 1 tab DAILY PO Last administered on 08/25/16 08:06; Start 08/24/16 at 09:00 Magnesium Hydroxide (Milk Of Magnesia) 2,400 mg PRN DAILY PRN PO CONSTIPATION; Start 08/23/16 at 15:45 Acetaminophen 500 mg 500 mg PRN Q6HRS PRN PO MILD PAIN / TEMP; Start 08/23/16 at 15:45 Levetiracetam/ Sodium Chloride (Keppra/Iv Sodium Chloride 0.9% 100ml) 105 ml @ 400 mls/hr Q12HR IV Last administered on 08/25/16 08:05; Start 08/23/16 at 21: 00 Pantoprazole Sodium (Protonix Vial) 40 mg DAILYAC IVP Last administered on 08:06; Start 08/24/16 at 07:30 Heparin Sodium (Porcine) 5000 unit 5,000 unit Q8HRS SQ ; Start 08/23/16 at 22:00 ; Stop 08/23/16 at 22:00; Status DC Sodium Bicarbonate/ Dextrose 1,150 ml @ 150 mls/hr Q7H40M IV Last administered on 08/25/16 08:05; Start 08/23/16 at 16:30; Stop 08/25/16 at 10:35; Status DC Sodium Bicarbonate 50 meq 1X ONCE IV Last administered on 08/23/16 16:24; Start 08/23/16 at 16:15; Stop 08/23/16 at 16:17; Status DC Albuterol/ Ipratropium 3 ml 3 ml RTQID NEB Last administered on 08/25/16 11:55 ; Start 08/23/16 at 20:00 Vancomycin HCl 750 mg/Sodium Chloride 250 ml @ 250 mls/hr Q24H IV Last administered on 08/24/16 12:15; Start 08/24/16 at 13:00; Stop 08/25/16 at 12:55 ; Status DC Norepinephrine Bitartrate 8 mg/ Sodium Chloride 258 ml @ 0 mls/hr CONT PRN IV SEE I/O RECORD Last administered on 08/25/16 00:28; Start 08/23/16 at 18:15 Sodium Chloride (Iv Sodium Chloride 0.9% 1000ml Bag) 1,000 ml @ 500 mls/hr Q2H IV Last administered on 08/23/16 17:00; Start 08/23/16 at 18:30; Stop at 20:29; Status DC Hydrocortisone Sodium Succinate (Solu-Cortef) 100 mg Q8HRS IV Last administered on 08/25/16 14:37; Start 08/23/16 at 22:30 Succinylcholine Chloride (Anectine) 200 mg STK-MED ONCE .ROUTE ; Start 08/24/16 at 04:15; Stop 08/24/16 at 04:16; Status DC Etomidate 20 mg 20 mg STK-MED ONCE IV ; Start 08/24/16 at 04:15; Stop 08/24/16 at 04:16; Status DC Fentanyl Citrate (Fentanyl 600 Mcg/30 ml BLUNGER) 30 ml @ 0 mls/hr CONT PRN IV PROTOCOL; Start 08/24/16 at 04:45 Fentanyl Citrate (Fentanyl 2ml Vial) 25 mcg PRN Q1HR PRN IV COMM; Start at 04:45 Fentanyl Citrate (Fentanyl 2ml Vial) 50 mcg PRN Q1HR PRN IV COMM; Start at 04:45 Chlorhexidine Gluconate 15 ml 15 ml BID MM Last administered on 08/25/16 08:06 ; Start 08/24/16 at 09:00 Midazolam HCl 100 ml @ 0 mls/hr CONT PRN IV PER PROTOCOL Last administered on 10:50; Start 08/24/16 at 04:45 Midazolam HCl 100 ml @ As Directed STK-MED ONCE IV ; Start 08/24/16 at 04:52; Stop 08/24/16 at 04:53; Status DC Sodium Chloride 1,000 ml @ 150 mls/hr Q6H40M IV Last administered on 06:13; Start 08/24/16 at 05:45; Stop 08/24/16 at 09:59; Status DC Vasopressin 40 unit/Dextrose 102 ml @ 6 mls/hr 1X ONCE IV Last administered on 08/24/16 06:12; Start 08/24/16 at 06:00; Stop 08/24/16 at 20:00; Status DC Phenylephrine HCl 20 mg/Sodium Chloride 252 ml @ 0 mls/hr CONT PRN IV SEE I/O RECORD Last administered on 08/24/16 07:28; Start 08/24/16 at 05:45 Albumin Human 500 ml @ 125 mls/hr 1X ONCE IV Last administered on 08/24/16 06:20; Start 08/24/16 at 05:45; Stop 08/24/16 at 09:44; Status DC Micafungin Sodium 100 mg/Dextrose 100 ml @ 100 mls/hr Q24H IV Last administered on 08/25/16 08:09; Start 08/24/16 at 09:00 Epinephrine HCl/ Sodium Chloride (Adrenalin/Iv Sodium Chloride 0.9% 250ml) 254 ml @ 0 mls/hr CONT PRN IV SEE I/O RECORD; Start 08/24/16 at 07:30 Epinephrine HCl (Adrenalin) 30 mg STK-MED ONCE .ROUTE ; Start 08/23/16 at 12:00 ; Stop 08/24/16 at 10:38; Status DC Epinephrine HCl 4 mg STK-MED ONCE .ROUTE ; Start 08/23/16 at 12:00; Stop at 10:38; Status DC Sodium Bicarbonate 100 meq 100 meq STK-MED ONCE .ROUTE ; Start 08/23/16 at 12:00 ; Stop 08/24/16 at 10:38; Status DC Levothyroxine Sodium 50 mcg/ Sodium Chloride 5 ml @ 100 mls/hr DAILY IVP Last administered on 08/25/16 08:06; Start 08/24/16 at 15:00 Phytonadione 10 mg/Sodium Chloride 51 ml @ 102 mls/hr 1X ONCE IV Last administered on 08/24/16 15:14; Start 08/24/16 at 14:30; Stop 08/24/16 at 14:59 ; Status DC Vasopressin/ Dextrose (Vasostrict) 102 ml @ 6 mls/hr CONT PRN IV SEE I/O RECORD Last administered on 08/25/16 14:34; Start 08/24/16 at 18:15 Acetaminophen 650 mg 650 mg PRN Q6HRS PRN PEG MILD PAIN / TEMP Last administered on 08/24/16 20:52; Start 08/24/16 at 20:45 Levofloxacin/ Dextrose (LEVAQUIN 500mg PREMIX) 100 ml @ 100 mls/hr 1X ONCE IV Last administered on 08/25/16 08:06; Start 08/25/16 at 08:00; Stop 08/25/16 at 08:59; Status DC Insulin Aspart (Novolog) 0-9 UNITS TIDWMEALS SQ Last administered on 08/25/16 12:42; Start 08/25/16 at 08:00 Dextrose 12.5 gm PRN Q15MIN PRN IV SEE COMMENTS; Start 08/25/16 at 07:30 Insulin Aspart 10 units 10 units 1X ONCE SQ Last administered on 08/25/16 08: 08; Start 08/25/16 at 08:00; Stop 08/25/16 at 08:01; Status DC Sodium Chloride 1,000 ml @ 100 mls/hr Q10H IV Last administered on 08/25/16 10 :55; Start 08/25/16 at 11:00 Potassium Chloride/Sodium Chloride (Iv Sodium Chloride 0.45%) 1,015 ml @ 75 mls /hr 1X ONCE IV Last administered on 08/25/16 10:55; Start 08/25/16 at 11:00; Stop 08/26/16 at 00:31 Insulin Aspart 10 units 10 units 1X ONCE SQ Last administered on 08/25/16 12: 42; Start 08/25/16 at 12:45; Stop 08/25/16 at 12:46; Status DC Vancomycin HCl/ Sodium Chloride (Iv Sodium Chloride 0.9% 250ml) 250 ml @ 250 mls/hr Q18H IV Last administered on 08/25/16 13:21; Start 08/25/16 at 13:00 Active Scripts Active Reported Milk Of Magnesia (Magnesium Hydroxide) 2,400 Mg/10 Ml Oral.susp 2,400 Mg PO DAILY PRN Dulcolax (Bisacodyl) 10 Mg Supp.rect 10 Mg RC PRN DAILY PRN Aspirin 325 Mg Tablet 1 Tab PEG DAILY Tylenol (Acetaminophen) 325 Mg Tablet 2 Tab PO PRN Q6HRS PRN Vitamin B Complex 1 Each Tablet 1 Tab PO DAILY Vitamin D3 (Cholecalciferol (Vitamin D3)) 1,000 Unit Tablet 2,000 Unit PO DAILY Keppra (Levetiracetam) 500 Mg Tablet 500 Mg PO BID Vitals/I & O Vital Sign - Last 24 Hours 08/24/16 08/24/16 08/24/16 08/24/16 16:00 16:00 17:00 17:28 Temp 98.6 98.6 Pulse 119 121 Resp 19 18 B/P 116/81 114/76 Pulse Ox 97 97 98 O2 Delivery Ventilator Mechanical Ventilator Ventilator Ventilator 08/24/16 08/24/16 08/24/16 08/24/16 18:00 19:00 20:00 20:00 Temp 100.8 100.8 Pulse 121 119 124 Resp 17 B/P 98/75 109/79 129/84 Pulse Ox 99 99 100 O2 Delivery Ventilator Ventilator Ventilator Mechanical Ventilator 08/24/16 08/24/16 08/24/16 08/24/16 20:08 21:00 21:00 22:00 Pulse 123 118 Resp 18 18 B/P 132/88 108/74 Pulse Ox 100 99 100 100 O2 Delivery Ventilator Ventilator Ventilator Ventilator 08/24/16 08/24/16 08/24/16 08/25/16 23:00 23:32 23:59 00:01 Temp 99.5 99.5 Pulse 112 112 Resp 18 18 B/P 110/73 122/69 Pulse Ox 100 100 100 O2 Delivery Ventilator Ventilator Mechanical Ventilator Ventilator 08/25/16 08/25/16 08/25/16 08/25/16 00:46 01:00 02:00 03:00 Pulse 110 113 110 Resp 17 17 18 B/P 91/65 105/69 98/71 Pulse Ox 100 100 100 100 O2 Delivery Ventilator Ventilator Ventilator Ventilator 08/25/16 08/25/16 08/25/16 08/25/16 03:18 04:00 04:00 05:00 Temp 99.7 99.7 Pulse 113 105 Resp 17 18 B/P 105/69 106/85 Pulse Ox 100 100 100 O2 Delivery Ventilator Mechanical Ventilator Ventilator Ventilator 08/25/16 08/25/16 08/25/16 08/25/16 05:10 06:00 07:00 08:00 Pulse 104 103 Resp 17 18 B/P 103/68 89/70 Pulse Ox 100 100 100 O2 Delivery Ventilator Ventilator Ventilator Mechanical Ventilator 08/25/16 08/25/16 08/25/16 08/25/16 08:00 08:01 09:00 10:00 Temp 98.1 98.1 Pulse 103 98 105 Resp 16 10 11 B/P 103/61 103/73 81/56 Pulse Ox 100 100 100 100 O2 Delivery Ventilator Ventilator Ventilator Ventilator 08/25/16 08/25/16 08/25/16 08/25/16 11:00 11:32 12:00 12:00 Temp 97.4 97.4 Pulse 101 101 Resp 10 10 B/P 87/61 69/55 Pulse Ox 100 100 100 O2 Delivery Ventilator Ventilator Mechanical Ventilator Ventilator 08/25/16 08/25/16 08/25/16 08/25/16 13:00 13:35 14:00 15:00 Pulse 100 106 103 Resp 11 9 9 B/P 95/69 92/64 80/55 Pulse Ox 100 100 100 100 O2 Delivery Ventilator Ventilator Ventilator Ventilator Intake and Output 08/24/16 08/24/16 08/25/16 15:00 23:00 07:00 Intake Total 700 ml 3604.2 ml 2326 ml Output Total 1050 ml 3100 ml 2100 ml Balance -350 ml 504.2 ml 226 ml PINA GUZMANL K III DO Aug 25, 2016 15:41
[2016-08-26] VITALS (28 sets, daily range): BP systolic 65–138; BP diastolic 52–93
[2016-08-26] MEDS: INSULIN ASPART 300 UNITS/3 ML INSULN.PEN SQ SCH ×4 (00:12→18:31)
[2016-08-26] MEDS: PIPERACILLIN/TAZOBACTAM 3.375 GM in IV NORMAL SALINE 50ML 50 ML IV SCH ×5 (00:13→22:44)
[2016-08-26] MEDS: IV 1/2 NORMAL SALINE 1,000 ML IV SCH ×2 (01:25→22:00)
[2016-08-26] MEDS: VASOPRESSIN 40 UNIT in IV DEXTROSE 5% 100 ML IV PRN (05:44)
[2016-08-26] MEDS: HYDROCORTISONE SOD SUCC/PF 100 MG/2 ML VIAL. IV SCH ×2 (05:44→14:54)
[2016-08-26 05:50] LABS: BASO # 0.1 x10^3/uL (0.0-0.2); BASO % 1 % (0-3); EOS % 0 % (0-3); HEMATOCRIT 21.6 % (39.0-53.0); HEMOGLOBIN 7.4 g/dL (13.0-17.5); LYMPH # 1.1 x10^3/uL (1.0-4.8); LYMPH % 9 % (24-48); MEAN CORPUSCULAR HEMOGLOBIN 34 pg (25-35); MEAN CORPUSCULAR HGB CONC 34 g/dL (31-37); MEAN CORPUSCULAR VOLUME 100 fL (79-100); MONO % 3 % (0-9); NEUT % 88 % (31-73); PLATELET COUNT 80 x10^3/uL (140-400); RED BLOOD COUNT 2.17 x10^6/uL (4.30-5.70); RED CELL DISTRIBUTION WIDTH 13.9 % (11.5-14.5); WHITE BLOOD COUNT 12.5 x10^3/uL (4.0-11.0)
[2016-08-26 06:11] LABS: CALCIUM 7.2 mg/dL (8.5-10.1); CREATININE 1.2 mg/dL (0.7-1.3); GFR 76.1; POTASSIUM 3.1 mmol/L (3.5-5.1)
[2016-08-26] MEDS: VANCOMYCIN 1 GM in IV NORMAL SALINE 250ML 250 ML IV SCH (06:39)
--- NOTE | 2016-08-26 07:32 | CONS ---
DATE OF CONSULTATION: 08/25/2016 CHIEF COMPLAINT: Gross hematuria. HISTORY OF PRESENT ILLNESS: This is a 55-year-old, male, with Down syndrome, that was admitted to the Emergency Room due to shortness of breath, hypotension, and change in mental status. Urology was asked to see the patient due to gross hematuria while in the hospital. The plush dresser states that he did not have gross hematuria prior to admission, that he did have an external [place] catheter 2 days prior to admission to keep himself dry since he had a breakdown of skin of the buttocks. She also states that he has a history of recurrent urinary tract infections and was taking a low-dose suppressive antibiotic. Other than that, there has been no history of prostate or bladder problems other than his recurrent urinary tract infections. It is my understanding that the patient is a total care. PAST MEDICAL HISTORY: The patient has a history of Down syndrome, recurrent urinary tract infections, urinary incontinence. The patient also has a history of chronic anemia, seizure disorder, dysphagia. PAST SURGICAL HISTORY: The patient has had a gastric tube placed. ALLERGIES: No known drug allergies. PHYSICAL EXAMINATION: GENERAL DESCRIPTION: Reveals a 55-year-old, male, in ICU bed #5. He is intubated and on a respirator. ABDOMEN: Soft. Negative for flank pain bilaterally. He has a gastric feeding tube. GENITALIA: The patient has an indwelling Bowling catheter draining sabrina-colored urine today. LOWER EXTREMITIES: The patient has contractures of the lower extremities. LABORATORY STUDIES: His current white blood cell count is 13.8, hemoglobin 8.0, hematocrit 24.3, platelet count is low at 98. The patient's current BUN is 29, creatinine is 2.0, potassium is low at 5.2. Coag studies: The patient's PT is 21.3. His INR is 2.0. It is my understanding that he is not on blood thinners. Urinalysis: Large leukocytes, fpk-gmpvlzui-kc-count red blood cells, vpa-coxmrgpj-zf-count white blood cells, many bacteria. Urine culture grew out Proteus mirabilis. The patient's blood culture is negative at this point. X-RAY STUDIES: The patient's ultrasound study revealed severe bilateral hydronephrosis, etiology uncertain. IMPRESSIONS: 1. Gross hematuria - improved. 2. Coagulopathy. 3. Urinary tract infection. 4. Renal insufficiency. 5. Bilateral hydronephrosis - etiology uncertain. PLANS: 1. Treat UTI according to culture and sensitivity. 2. The patient may need bilateral nephrostomy tubes once his coagulopathy is corrected. 3. Suspect that the hematuria is secondary to UTI and subsequent cystitis versus traumatic catheter placement. We will continue to follow this patient's hospital course. Thank you for the opportunity to participate in evaluation of this patient. JANIS ALVAREZ DO DR: MARIN/mary carmen JOB#: [id number] / [id number]
[2016-08-26] MEDS: PANTOPRAZOLE IV PUSH 40 MG VIAL. IVP SCH (07:59)
--- NOTE | 2016-08-26 08:19 | PDOC ---
Infectious Disease Note Subjective Subjective intubated/sedated ROS ROS Unobtainable Vital Sign Vital Signs Vital Signs Date Time Temp Pulse Resp B/P Pulse Ox O2 Delivery O2 Flow Rate FiO2 08/26/16 07:00 87 10 118/88 100 Ventilator 08/26/16 04:00 98.0 98.0 Physical Exam PHYSICAL EXAM GENERAL: Intubated HEENT: PERRL, ? cataracts, OC/OP -ETT/OGT NECK: Supple, no JVD, no LN LUNGS: Clear HEART: S1S2, no gallop, no murmur ABD: Soft, NT, no organomegaly, no rebound/PEG Bowling EXT: No edema, no cyanosis TRACK PATROL: Sedated SKIN: No rash IV: PICC LUE Labs Lab Laboratory Tests Test 08/25/16 08:15 08/25/16 12:09 08/25/16 12:10 08/25/16 17:20 O2 Saturation 95% (92-99) Arterial Blood pH 7.59 (7.35-7.45) Arterial Blood pCO2 at Patient Temp 28mmHg (35-46) Arterial Blood pO2 at Patient Temp 72mmHg (75-108) Arterial Blood HCO3 26mmol/L (21-28) Arterial Blood Base Excess 5mmol/L (-3-3) FiO2 40 Glucose (Fingerstick) 387mg/dL (70-99) 249mg/dL (70-99) Vancomycin Level Trough 9.0mcg/mL (10.0-20.0) Vancomycin Last Dose Date 08/24/16 Vancomycin Last Dose Time 1300 Test 08/26/16 00:11 08/26/16 05:40 08/26/16 05:45 Glucose (Fingerstick) 176mg/dL (70-99) 266mg/dL (70-99) White Blood Count 12.5x10^3/uL (4.0-11.0) Red Blood Count 2.17x10^6/uL (4.30-5.70) Hemoglobin 7.4g/dL (13.0-17.5) Hematocrit 21.6% (39.0-53.0) Mean Corpuscular Volume 100fL (79-100) Mean Corpuscular Hemoglobin 34pg (25-35) Mean Corpuscular Hemoglobin Concent 34g/dL (31-37) Red Cell Distribution Width 13.9% (11.5-14.5) Platelet Count 80x10^3/uL (140-400) Neutrophils (%) (Auto) 88% (31-73) Lymphocytes (%) (Auto) 9% (24-48) Monocytes (%) (Auto) 3% (0-9) Eosinophils (%) (Auto) 0% (0-3) Basophils (%) (Auto) 1% (0-3) Neutrophils # (Auto) 10.9x10^3uL (1.8-7.7) Lymphocytes # (Auto) 1.1x10^3/uL (1.0-4.8) Monocytes # (Auto) 0.3x10^3/uL (0.0-1.1) Eosinophils # (Auto) 0.0x10^3/uL (0.0-0.7) Basophils # (Auto) 0.1x10^3/uL (0.0-0.2) Sodium Level 145mmol/L (136-145) Potassium Level 3.1mmol/L (3.5-5.1) Chloride Level 105mmol/L (98-107) Carbon Dioxide Level 32mmol/L (21-32) Anion Gap 8 (6-14) Blood Urea Nitrogen 24mg/dL (8-26) Creatinine 1.2mg/dL (0.7-1.3) Estimated GFR (Cockcroft-Gault) 76.1 Glucose Level 278mg/dL (70-99) Lactic Acid Level 3.4mmol/L (0.4-2.0) Calcium Level 7.2mg/dL (8.5-10.1) Objective Assessment Severe Sepsis - improved Hyperglycemia -improved ? early DIC vs sepsis with thrombocytopenia and coagulopathy - stable Hydronephrosis on U/S - Urology consulted and pending. Evaluated but note pending per nursing Acute Resp failure - intubated Lactic acidosis MAHAD with h/o hydronephrosis -better + BM Bandemia/leukocytosis - on Hydrocortisone Hematuria - ? UTI - Proteus H/o granulomas Plan Plan of Care Cont Zosyn/Micafungin. Levoflox redose today D/c Vanc F/u labs in am and cults Needs CT chest/abd/pelvis when stable Critically ill ANETA SAINZ MD Aug 26, 2016 08:19
[2016-08-26] MEDS: IPRATRPIUM/ALBUTEROL 0.5/2.5MG 3 ML NEBU. NEB SCH ×4 (08:28→20:06)
[2016-08-26 08:55] LABS: HCO3 ABG 32 mmol/L (21-28); PCO2 ABG 34 mmHg (35-46); PO2 ABG 135 mmHg (75-108)
[2016-08-26 09:08] LABS: PH ABG 7.59 (7.35-7.45)
[2016-08-26 09:10] LABS: FIO2 ABG 40
[2016-08-26] MEDS: LEVETIRACETAM 500 MG in IV NORMAL SALINE 100ML 100 ML IV SCH ×2 (09:28→22:03)
[2016-08-26] MEDS: ASPIRIN 325 MG TABLET PEG SCH (09:29)
[2016-08-26] MEDS: CHOLECALCIFEROL (VITAMIN D3) 1,000 UNIT TABLET PO SCH (09:29)
[2016-08-26] MEDS: VITAMIN B COMPLEX TABLET. PO SCH (09:29)
[2016-08-26] MEDS: MICAFUNGIN 100 MG in IV DEXTROSE 5% 100 ML IV SCH (09:29)
[2016-08-26] MEDS: LEVOTHYROXINE SODIUM 50 MCG in IV NORMAL SALINE 50ML 5 ML IVP SCH (09:29)
[2016-08-26] MEDS: CHLORHEXIDINE 0.12% 15 ML MOUTHWASH. MM SCH ×2 (09:29→22:00)
--- NOTE | 2016-08-26 10:51 | PDOC ---
Renal-Progress Notes Subjective Notes Notes NONE History of Present Illness Hx of present illness BETTER Vitals Vitals Vital Signs Date Time Temp Pulse Resp B/P Pulse Ox O2 Delivery O2 Flow Rate FiO2 08/26/16 07:00 87 10 118/88 100 Ventilator 08/26/16 04:00 98.0 98.0 Weight Weight [ ] I.O. Intake and Output Intake and Output 08/26/16 07:00 Intake Total 4946.42 ml Output Total 3625 ml Balance 1321.42 ml Intake IV Total 3851.42 ml Tube Feeding 1065 ml Other 30 ml Output Urine Total 3125 ml Gastric Drainage Total 500 ml # Bowel Movements 6 Labs Labs Laboratory Tests Test 08/25/16 12:09 08/25/16 12:10 08/25/16 17:20 08/26/16 00:11 Glucose (Fingerstick) 387mg/dL (70-99) 249mg/dL (70-99) 176mg/dL (70-99) Vancomycin Level Trough 9.0mcg/mL (10.0-20.0) Vancomycin Last Dose Date 08/24/16 Vancomycin Last Dose Time 1300 Test 08/26/16 05:40 08/26/16 05:45 08/26/16 08:45 White Blood Count 12.5x10^3/uL (4.0-11.0) Red Blood Count 2.17x10^6/uL (4.30-5.70) Hemoglobin 7.4g/dL (13.0-17.5) Hematocrit 21.6% (39.0-53.0) Mean Corpuscular Volume 100fL (79-100) Mean Corpuscular Hemoglobin 34pg (25-35) Mean Corpuscular Hemoglobin Concent 34g/dL (31-37) Red Cell Distribution Width 13.9% (11.5-14.5) Platelet Count 80x10^3/uL (140-400) Neutrophils (%) (Auto) 88% (31-73) Lymphocytes (%) (Auto) 9% (24-48) Monocytes (%) (Auto) 3% (0-9) Eosinophils (%) (Auto) 0% (0-3) Basophils (%) (Auto) 1% (0-3) Neutrophils # (Auto) 10.9x10^3uL (1.8-7.7) Lymphocytes # (Auto) 1.1x10^3/uL (1.0-4.8) Monocytes # (Auto) 0.3x10^3/uL (0.0-1.1) Eosinophils # (Auto) 0.0x10^3/uL (0.0-0.7) Basophils # (Auto) 0.1x10^3/uL (0.0-0.2) Sodium Level 145mmol/L (136-145) Potassium Level 3.1mmol/L (3.5-5.1) Chloride Level 105mmol/L (98-107) Carbon Dioxide Level 32mmol/L (21-32) Anion Gap 8 (6-14) Blood Urea Nitrogen 24mg/dL (8-26) Creatinine 1.2mg/dL (0.7-1.3) Estimated GFR (Cockcroft-Gault) 76.1 Glucose Level 278mg/dL (70-99) Lactic Acid Level 3.4mmol/L (0.4-2.0) Calcium Level 7.2mg/dL (8.5-10.1) Glucose (Fingerstick) 266mg/dL (70-99) O2 Saturation % (92-99) Arterial Blood pH 7.59 (7.35-7.45) Arterial Blood pCO2 at Patient Temp 34mmHg (35-46) Arterial Blood pO2 at Patient Temp 135mmHg (75-108) Arterial Blood HCO3 32mmol/L (21-28) Arterial Blood Base Excess 10mmol/L (-3-3) FiO2 40 Micro Micro Microbiology 08/23/16 Blood Culture - Preliminary, Resulted NO GROWTH AFTER 2 DAYS 08/23/16 Urine Culture - Preliminary, Resulted 08/23/16 Urine Culture Result 1 (SHANON) - Preliminary, Resulted Review of Systems Constitutional: yes: no symptom reported Physical Exam General Appearance: no apparent distress Skin: warm Respiratory: decreased breath sounds Heart: S1S2, RRR Abdomen: soft, bowel sounds present Genitourinary: bladder flat Extremities: pulses present Musculoskeletal: Osteoarthritis Assessment Assessment IMP MAHAD-IMPROVING MET ACIDOSIS-RESOLVED HYPERNATREMIA-BETTER HYPOKALEMIA SEPSIS RESP FAILURE PNEUMONIA PLAN REPLACE K HYPOTONIC SALINE CONT TF CHRISTA HAMILTON MD Aug 26, 2016 10:50
[2016-08-26] MEDS ORDERED: POTASSIUM CHLORIDE 30 MEQ in IV 1/2 NORMAL SALINE 1,000 ML IV ONE (11:00)
--- NOTE | 2016-08-26 12:08 | PDOC2 ---
GI CONSULT Reason For Consult: Increased residuals HPI: HPI: 56 y/o brought to ER from home on 08/23/16 w/ fever and n/v, admitted w/ resp failure, sepsis, MAHAD, and lactic acidosis. Followed by pulm and ID. Also noted to have hematuria and has been evaluated by urology. Currently intubated on vasopressin but off sedation (since this morning) i n ICU. PMH as below significant for Down's syndrome and dysphagia s/p PEG placement by Dr. Johnson in 07/2015. Per his consult at that time, patient's mother reports no prior GI issues, including GERD, dysphagia, PUD, GB, liver or pancreatic issues. On this occasion, GI asked to see re: increased residuals w/ PEG feeds and hypoactive bowel sounds. Most recent labs: WBC 12.5, Hgb 7.5, plt 80, INR 2, lactic acid 3.4, glucose 278. Note abd US on 08/24 showed severe bilateral hydronephrosis and KUB that day showed increased stool in the rectum w/ possible fecal impaction. This was manually disimpacted resulting in some diarrhea changing to soft stools overnight. PMH: PMH: from chart and RN - Down's syndrome, CVA, dysphagia, seizure disorder, anemia, DM, arthritis, UTI, PEG placement FH: Family History: No pertinent hx Social History: Smoke: No ALCOHOL: none Drugs: None ROS: Unobtainable. VItals: Vitals: Vital Signs Date Time Temp Pulse Resp B/P Pulse Ox O2 Delivery O2 Flow Rate FiO2 08/26/16 08:00 Mechanical Ventilator 08/26/16 07:00 87 10 118/88 100 08/26/16 04:00 98.0 98.0 Labs: Labs: Laboratory Tests Test 08/25/16 12:09 08/25/16 12:10 08/25/16 17:20 08/26/16 00:11 Glucose (Fingerstick) 387mg/dL (70-99) 249mg/dL (70-99) 176mg/dL (70-99) Vancomycin Level Trough 9.0mcg/mL (10.0-20.0) Vancomycin Last Dose Date 08/24/16 Vancomycin Last Dose Time 1300 Test 08/26/16 05:40 08/26/16 05:45 08/26/16 08:45 White Blood Count 12.5x10^3/uL (4.0-11.0) Red Blood Count 2.17x10^6/uL (4.30-5.70) Hemoglobin 7.4g/dL (13.0-17.5) Hematocrit 21.6% (39.0-53.0) Mean Corpuscular Volume 100fL (79-100) Mean Corpuscular Hemoglobin 34pg (25-35) Mean Corpuscular Hemoglobin Concent 34g/dL (31-37) Red Cell Distribution Width 13.9% (11.5-14.5) Platelet Count 80x10^3/uL (140-400) Neutrophils (%) (Auto) 88% (31-73) Lymphocytes (%) (Auto) 9% (24-48) Monocytes (%) (Auto) 3% (0-9) Eosinophils (%) (Auto) 0% (0-3) Basophils (%) (Auto) 1% (0-3) Neutrophils # (Auto) 10.9x10^3uL (1.8-7.7) Lymphocytes # (Auto) 1.1x10^3/uL (1.0-4.8) Monocytes # (Auto) 0.3x10^3/uL (0.0-1.1) Eosinophils # (Auto) 0.0x10^3/uL (0.0-0.7) Basophils # (Auto) 0.1x10^3/uL (0.0-0.2) Sodium Level 145mmol/L (136-145) Potassium Level 3.1mmol/L (3.5-5.1) Chloride Level 105mmol/L (98-107) Carbon Dioxide Level 32mmol/L (21-32) Anion Gap 8 (6-14) Blood Urea Nitrogen 24mg/dL (8-26) Creatinine 1.2mg/dL (0.7-1.3) Estimated GFR (Cockcroft-Gault) 76.1 Glucose Level 278mg/dL (70-99) Lactic Acid Level 3.4mmol/L (0.4-2.0) Calcium Level 7.2mg/dL (8.5-10.1) Glucose (Fingerstick) 266mg/dL (70-99) O2 Saturation % (92-99) Arterial Blood pH 7.59 (7.35-7.45) Arterial Blood pCO2 at Patient Temp 34mmHg (35-46) Arterial Blood pO2 at Patient Temp 135mmHg (75-108) Arterial Blood HCO3 32mmol/L (21-28) Arterial Blood Base Excess 10mmol/L (-3-3) FiO2 40 Allergies: Coded Allergies: No Known Drug Allergies (Unverified , 07/29/15) Medications: Current Medications Medications (Trade) Dose Ordered Sig/Vernell Route PRN Reason Start Time Stop Time Status Last Admin Dose Admin Insulin Aspart 10 units 10 units 1X ONCE SQ 08/25/16 12:45 08/25/16 12:46 DC 08/25/16 12:42 Vancomycin HCl/ Sodium Chloride (Iv Sodium Chloride 0.9% 250ml) 250 ml @ 250 mls/hr Q18H IV 08/25/16 13:00 08/26/16 08:18 DC 08/26/16 06:39 Insulin Aspart 0-9 UNITS Q6HRS SQ 08/26/16 00:00 08/26/16 05:48 Levofloxacin/ Dextrose (LEVAQUIN 500mg PREMIX) 100 ml @ 100 mls/hr 1X ONCE IV 08/26/16 09:30 08/26/16 10:29 DC 08/26/16 09:28 Imaging: Imaging: CXR 08/25/16 IMPRESSION: 1. The ET tube and left PICC are in satisfactory positions. 2. Unchanged bilateral pulmonary infiltrates. Abd US 08/24/16 IMPRESSION: Severe bilateral hydronephrosis. CT scanning of the abdomen and pelvis may be useful for further evaluation. KUB 08/24/16 IMPRESSION 1. Gastrostomy tube in in the stomach. 2. NG tube in the stomach. 3. Increased stool in the rectum possible fecal impaction. 4. Infiltrates in the lung bases more prominent on the right. PE: GEN: intubated HEENT: atraumatic LUNGS: vent HEART: RRR ABD: no appreciable BS, soft EXTREMITY: no edema SKIN: no rashes NEURO/PSYCH: unresponsive A/P: A/P: Resp failure, sepsis, lactic acidosis -intubated in ICU, off sedation this morning Dysphagia w/ PEG in place -increased residuals w/ feeding -previous imaging as above -- Place PEG to gravity and recheck KULUCIO WEBB Aug 26, 2016 12:08
--- NOTE | 2016-08-26 14:27 | RAD ---
Portable KUB, 3 2017: History: Decreased bowel sounds A gastrostomy tube overlies the left upper quadrant. There is very little bowel gas in the abdomen. There is a small amount of gas and stool in the rectum. There is no evidence of organomegaly. Moderate degenerative changes are evident in the spine. There are ongoing basilar infiltrates, predominantly on the right. IMPRESSION: 1. No acute abdominal abnormality is detected. 2. Ongoing basilar pulmonary infiltrates.
--- NOTE | 2016-08-26 16:47 | PDOC ---
PULMONARY PROGRESS NOTES Subjective off sedation and levo Vitals Vital Signs Date Time Temp Pulse Resp B/P Pulse Ox O2 Delivery O2 Flow Rate FiO2 08/26/16 16:00 100 Ventilator 08/26/16 14:00 80 10 118/88 08/26/16 12:00 97.9 97.9 Lungs: Clear Cardiovascular: S1, S2 Abdomen: Soft Extremities: Other (some edema) Skin: Warm Labs Laboratory Tests Test 08/25/16 04:45 08/25/16 05:34 08/25/16 07:25 08/25/16 08:15 White Blood Count 13.8x10^3/uL (4.0-11.0) Red Blood Count 2.35x10^6/uL (4.30-5.70) Hemoglobin 8.0g/dL (13.0-17.5) Hematocrit 24.3% (39.0-53.0) Mean Corpuscular Volume 104fL (79-100) Mean Corpuscular Hemoglobin 34pg (25-35) Mean Corpuscular Hemoglobin Concent 33g/dL (31-37) Red Cell Distribution Width 14.0% (11.5-14.5) Platelet Count 98x10^3/uL (140-400) Neutrophils (%) (Auto) 91% (31-73) Lymphocytes (%) (Auto) 6% (24-48) Monocytes (%) (Auto) 2% (0-9) Eosinophils (%) (Auto) 0% (0-3) Basophils (%) (Auto) 1% (0-3) Neutrophils # (Auto) 12.6x10^3uL (1.8-7.7) Lymphocytes # (Auto) 0.9x10^3/uL (1.0-4.8) Monocytes # (Auto) 0.3x10^3/uL (0.0-1.1) Eosinophils # (Auto) 0.0x10^3/uL (0.0-0.7) Basophils # (Auto) 0.1x10^3/uL (0.0-0.2) Prothrombin Time 21.3SEC (11.7-14.0) Prothromb Time International Ratio 2.0 (0.8-1.1) Sodium Level 150mmol/L (136-145) Potassium Level 3.2mmol/L (3.5-5.1) Chloride Level 104mmol/L (98-107) Carbon Dioxide Level 27mmol/L (21-32) Anion Gap 19 (6-14) Blood Urea Nitrogen 29mg/dL (8-26) Creatinine 2.0mg/dL (0.7-1.3) Estimated GFR (Cockcroft-Gault) 42.3 Glucose Level 398mg/dL (70-99) Lactic Acid Level 12.0mmol/L (0.4-2.0) Calcium Level 7.5mg/dL (8.5-10.1) Glucose (Fingerstick) 319mg/dL (70-99) 357mg/dL (70-99) O2 Saturation 95% (92-99) Arterial Blood pH 7.59 (7.35-7.45) Arterial Blood pCO2 at Patient Temp 28mmHg (35-46) Arterial Blood pO2 at Patient Temp 72mmHg (75-108) Arterial Blood HCO3 26mmol/L (21-28) Arterial Blood Base Excess 5mmol/L (-3-3) FiO2 40 Test 08/25/16 12:09 08/25/16 12:10 08/25/16 17:20 08/26/16 00:11 Glucose (Fingerstick) 387mg/dL (70-99) 249mg/dL (70-99) 176mg/dL (70-99) Vancomycin Level Trough 9.0mcg/mL (10.0-20.0) Vancomycin Last Dose Date 08/24/16 Vancomycin Last Dose Time 1300 Test 08/26/16 05:40 08/26/16 05:45 08/26/16 08:45 08/26/16 12:16 White Blood Count 12.5x10^3/uL (4.0-11.0) Red Blood Count 2.17x10^6/uL (4.30-5.70) Hemoglobin 7.4g/dL (13.0-17.5) Hematocrit 21.6% (39.0-53.0) Mean Corpuscular Volume 100fL (79-100) Mean Corpuscular Hemoglobin 34pg (25-35) Mean Corpuscular Hemoglobin Concent 34g/dL (31-37) Red Cell Distribution Width 13.9% (11.5-14.5) Platelet Count 80x10^3/uL (140-400) Neutrophils (%) (Auto) 88% (31-73) Lymphocytes (%) (Auto) 9% (24-48) Monocytes (%) (Auto) 3% (0-9) Eosinophils (%) (Auto) 0% (0-3) Basophils (%) (Auto) 1% (0-3) Neutrophils # (Auto) 10.9x10^3uL (1.8-7.7) Lymphocytes # (Auto) 1.1x10^3/uL (1.0-4.8) Monocytes # (Auto) 0.3x10^3/uL (0.0-1.1) Eosinophils # (Auto) 0.0x10^3/uL (0.0-0.7) Basophils # (Auto) 0.1x10^3/uL (0.0-0.2) Sodium Level 145mmol/L (136-145) Potassium Level 3.1mmol/L (3.5-5.1) Chloride Level 105mmol/L (98-107) Carbon Dioxide Level 32mmol/L (21-32) Anion Gap 8 (6-14) Blood Urea Nitrogen 24mg/dL (8-26) Creatinine 1.2mg/dL (0.7-1.3) Estimated GFR (Cockcroft-Gault) 76.1 Glucose Level 278mg/dL (70-99) Lactic Acid Level 3.4mmol/L (0.4-2.0) Calcium Level 7.2mg/dL (8.5-10.1) Glucose (Fingerstick) 266mg/dL (70-99) 204mg/dL (70-99) O2 Saturation % (92-99) Arterial Blood pH 7.59 (7.35-7.45) Arterial Blood pCO2 at Patient Temp 34mmHg (35-46) Arterial Blood pO2 at Patient Temp 135mmHg (75-108) Arterial Blood HCO3 32mmol/L (21-28) Arterial Blood Base Excess 10mmol/L (-3-3) FiO2 40 Laboratory Tests Test 08/25/16 17:20 08/26/16 00:11 08/26/16 05:40 08/26/16 05:45 Glucose (Fingerstick) 249mg/dL (70-99) 176mg/dL (70-99) 266mg/dL (70-99) White Blood Count 12.5x10^3/uL (4.0-11.0) Red Blood Count 2.17x10^6/uL (4.30-5.70) Hemoglobin 7.4g/dL (13.0-17.5) Hematocrit 21.6% (39.0-53.0) Mean Corpuscular Volume 100fL (79-100) Mean Corpuscular Hemoglobin 34pg (25-35) Mean Corpuscular Hemoglobin Concent 34g/dL (31-37) Red Cell Distribution Width 13.9% (11.5-14.5) Platelet Count 80x10^3/uL (140-400) Neutrophils (%) (Auto) 88% (31-73) Lymphocytes (%) (Auto) 9% (24-48) Monocytes (%) (Auto) 3% (0-9) Eosinophils (%) (Auto) 0% (0-3) Basophils (%) (Auto) 1% (0-3) Neutrophils # (Auto) 10.9x10^3uL (1.8-7.7) Lymphocytes # (Auto) 1.1x10^3/uL (1.0-4.8) Monocytes # (Auto) 0.3x10^3/uL (0.0-1.1) Eosinophils # (Auto) 0.0x10^3/uL (0.0-0.7) Basophils # (Auto) 0.1x10^3/uL (0.0-0.2) Sodium Level 145mmol/L (136-145) Potassium Level 3.1mmol/L (3.5-5.1) Chloride Level 105mmol/L (98-107) Carbon Dioxide Level 32mmol/L (21-32) Anion Gap 8 (6-14) Blood Urea Nitrogen 24mg/dL (8-26) Creatinine 1.2mg/dL (0.7-1.3) Estimated GFR (Cockcroft-Gault) 76.1 Glucose Level 278mg/dL (70-99) Lactic Acid Level 3.4mmol/L (0.4-2.0) Calcium Level 7.2mg/dL (8.5-10.1) Test 08/26/16 08:45 08/26/16 12:16 O2 Saturation % (92-99) Arterial Blood pH 7.59 (7.35-7.45) Arterial Blood pCO2 at Patient Temp 34mmHg (35-46) Arterial Blood pO2 at Patient Temp 135mmHg (75-108) Arterial Blood HCO3 32mmol/L (21-28) Arterial Blood Base Excess 10mmol/L (-3-3) FiO2 40 Glucose (Fingerstick) 204mg/dL (70-99) Medications Active Scripts Medications Dose Route/Sig Days Date Category Milk Of Magnesia (Magnesium Hydroxide) 2,400 Mg/10 Ml Oral.susp 2,400 Mg PO DAILY PRN 08/21/15 Reported Dulcolax (Bisacodyl) 10 Mg Supp.rect 10 Mg RC PRN DAILY PRN 08/21/15 Reported Aspirin 325 Mg Tablet 1 Tab PEG DAILY 08/02/15 Reported Tylenol (Acetaminophen) 325 Mg Tablet 2 Tab PO PRN Q6HRS PRN 08/02/15 Reported Vitamin B Complex 1 Each Tablet 1 Tab PO DAILY 07/25/15 Reported Vitamin D3 (Cholecalciferol (Vitamin D3)) 1,000 Unit Tablet 2,000 Unit PO DAILY 07/25/15 Reported Keppra (Levetiracetam) 500 Mg Tablet 500 Mg PO BID 07/25/15 Reported Impression . IMPRESSION: 1. Acute hypoxic respiratory failure secondary septic shock 2. Septic shock cultures so far negative 3. Abnormal chest x-ray with initial x-ray showing infiltrate 4. Acute severe metabolic acidosis with severe lactic acidosis secondary to sepsis/septic shock. MAHAD contributing to metabolic acidosis. 5. Hematuria 6. Urinary tract infection. 7. Coagulopathy, most likely related to early disseminated intravascular coagulation. 8. Underlying Down's syndrome 9. Dysphagia S/P PEG Plan . hold sedation d/c levo decrease VT d/w RT and RN 1. AC mode ABG noted, will d/c bicarbonate 2. Broad spectrum antibiotics per ID 3. follow nephro rec 4. nutrition per PEG 5. Titrate pressors continue vasopressin 6. Monitor PT and INR. 7. Monitor platelets. 8. decrease Solucortef ERINN HORN MD Aug 26, 2016 16:47
--- NOTE | 2016-08-26 17:35 | PDOC ---
PROGRESS NOTES Chief Complaint Chief Complaint 1. Severe SEPSIS infectious in origin (PNA) with HIGH LACTATE and ORGAN dysfunction (HYPOTENSION) 2. PNEUMONIA, bed bound, gram pos, gram neg, anaerobes, ASPIRATION highly likely 3. BED bound, non verbal, hx down's hx CVA 4. DYsphagia, indwelling PEG 5. OLiguric renal failure 6. MAHAD, vasomotor 7. GAp metabolic acidosis, recent vomiting, severe sepsis 8. hypothyroidism 9. down syndrome History of Present Illness History of Present Illness Patient seen in ICU with family at bedside. On ventilator: AC/ 8; TV 450; 40% FiO2; PEEP 5; Sat 98%. Currently on Levophed, Versed, and Vasopressin drips. Labs noted Notes reviewed ANGEL RN Vitals Vitals Vital Signs Date Time Temp Pulse Resp B/P Pulse Ox O2 Delivery O2 Flow Rate FiO2 08/26/16 16:00 100 Ventilator 08/26/16 14:00 80 10 118/88 08/26/16 12:00 97.9 97.9 Physical Exam Physical Exam intubated, sedated General: Other (SEDATED) Heart: Regular rate Lungs: Clear Abdomen: Normal bowel sounds, Soft Extremities: No clubbing Skin: No breakdown Labs LABS Laboratory Tests Test 08/26/16 00:11 08/26/16 05:40 08/26/16 05:45 08/26/16 08:45 Glucose (Fingerstick) 176mg/dL (70-99) 266mg/dL (70-99) White Blood Count 12.5x10^3/uL (4.0-11.0) Red Blood Count 2.17x10^6/uL (4.30-5.70) Hemoglobin 7.4g/dL (13.0-17.5) Hematocrit 21.6% (39.0-53.0) Mean Corpuscular Volume 100fL (79-100) Mean Corpuscular Hemoglobin 34pg (25-35) Mean Corpuscular Hemoglobin Concent 34g/dL (31-37) Red Cell Distribution Width 13.9% (11.5-14.5) Platelet Count 80x10^3/uL (140-400) Neutrophils (%) (Auto) 88% (31-73) Lymphocytes (%) (Auto) 9% (24-48) Monocytes (%) (Auto) 3% (0-9) Eosinophils (%) (Auto) 0% (0-3) Basophils (%) (Auto) 1% (0-3) Neutrophils # (Auto) 10.9x10^3uL (1.8-7.7) Lymphocytes # (Auto) 1.1x10^3/uL (1.0-4.8) Monocytes # (Auto) 0.3x10^3/uL (0.0-1.1) Eosinophils # (Auto) 0.0x10^3/uL (0.0-0.7) Basophils # (Auto) 0.1x10^3/uL (0.0-0.2) Sodium Level 145mmol/L (136-145) Potassium Level 3.1mmol/L (3.5-5.1) Chloride Level 105mmol/L (98-107) Carbon Dioxide Level 32mmol/L (21-32) Anion Gap 8 (6-14) Blood Urea Nitrogen 24mg/dL (8-26) Creatinine 1.2mg/dL (0.7-1.3) Estimated GFR (Cockcroft-Gault) 76.1 Glucose Level 278mg/dL (70-99) Lactic Acid Level 3.4mmol/L (0.4-2.0) Calcium Level 7.2mg/dL (8.5-10.1) O2 Saturation % (92-99) Arterial Blood pH 7.59 (7.35-7.45) Arterial Blood pCO2 at Patient Temp 34mmHg (35-46) Arterial Blood pO2 at Patient Temp 135mmHg (75-108) Arterial Blood HCO3 32mmol/L (21-28) Arterial Blood Base Excess 10mmol/L (-3-3) FiO2 40 Test 08/26/16 12:16 Glucose (Fingerstick) 204mg/dL (70-99) Review of Systems Review of Systems unobtainable Assessment and Plan Assessmemt and Plan Problems Medical Problems: (1) HAP (hospital-acquired pneumonia) Status: Acute (2) Pneumonia Status: Acute 1. Severe SEPSIS infectious in origin (PNA) with HIGH LACTATE and ORGAN dysfunction (HYPOTENSION) 2. PNEUMONIA, bed bound, gram pos, gram neg, anaerobes, ASPIRATION highly likely 3. BED bound, non verbal, hx down's hx CVA 4. DYsphagia, indwelling PEG 5. OLiguric renal failure 6. MAHAD, vasomotor 7. GAp metabolic acidosis, recent vomiting, severe sepsis 8. hypothyroidism 9. down syndrome Plan Mechanical Ventilation IV Pressors Antibx Recheck labs .Tube feedings Monitor platelets Replace Lytes total time 31 minutes Prognosis guarded at best Problems: Comment Review of Relevant I have reviewed the following items kassie (where applicable) has been applied. Labs Laboratory Tests Test 08/25/16 04:45 08/25/16 05:34 08/25/16 07:25 08/25/16 08:15 White Blood Count 13.8x10^3/uL (4.0-11.0) Red Blood Count 2.35x10^6/uL (4.30-5.70) Hemoglobin 8.0g/dL (13.0-17.5) Hematocrit 24.3% (39.0-53.0) Mean Corpuscular Volume 104fL (79-100) Mean Corpuscular Hemoglobin 34pg (25-35) Mean Corpuscular Hemoglobin Concent 33g/dL (31-37) Red Cell Distribution Width 14.0% (11.5-14.5) Platelet Count 98x10^3/uL (140-400) Neutrophils (%) (Auto) 91% (31-73) Lymphocytes (%) (Auto) 6% (24-48) Monocytes (%) (Auto) 2% (0-9) Eosinophils (%) (Auto) 0% (0-3) Basophils (%) (Auto) 1% (0-3) Neutrophils # (Auto) 12.6x10^3uL (1.8-7.7) Lymphocytes # (Auto) 0.9x10^3/uL (1.0-4.8) Monocytes # (Auto) 0.3x10^3/uL (0.0-1.1) Eosinophils # (Auto) 0.0x10^3/uL (0.0-0.7) Basophils # (Auto) 0.1x10^3/uL (0.0-0.2) Prothrombin Time 21.3SEC (11.7-14.0) Prothromb Time International Ratio 2.0 (0.8-1.1) Sodium Level 150mmol/L (136-145) Potassium Level 3.2mmol/L (3.5-5.1) Chloride Level 104mmol/L (98-107) Carbon Dioxide Level 27mmol/L (21-32) Anion Gap 19 (6-14) Blood Urea Nitrogen 29mg/dL (8-26) Creatinine 2.0mg/dL (0.7-1.3) Estimated GFR (Cockcroft-Gault) 42.3 Glucose Level 398mg/dL (70-99) Lactic Acid Level 12.0mmol/L (0.4-2.0) Calcium Level 7.5mg/dL (8.5-10.1) Glucose (Fingerstick) 319mg/dL (70-99) 357mg/dL (70-99) O2 Saturation 95% (92-99) Arterial Blood pH 7.59 (7.35-7.45) Arterial Blood pCO2 at Patient Temp 28mmHg (35-46) Arterial Blood pO2 at Patient Temp 72mmHg (75-108) Arterial Blood HCO3 26mmol/L (21-28) Arterial Blood Base Excess 5mmol/L (-3-3) FiO2 40 Test 08/25/16 12:09 08/25/16 12:10 08/25/16 17:20 08/26/16 00:11 Glucose (Fingerstick) 387mg/dL (70-99) 249mg/dL (70-99) 176mg/dL (70-99) Vancomycin Level Trough 9.0mcg/mL (10.0-20.0) Vancomycin Last Dose Date 08/24/16 Vancomycin Last Dose Time 1300 Test 08/26/16 05:40 08/26/16 05:45 08/26/16 08:45 08/26/16 12:16 White Blood Count 12.5x10^3/uL (4.0-11.0) Red Blood Count 2.17x10^6/uL (4.30-5.70) Hemoglobin 7.4g/dL (13.0-17.5) Hematocrit 21.6% (39.0-53.0) Mean Corpuscular Volume 100fL (79-100) Mean Corpuscular Hemoglobin 34pg (25-35) Mean Corpuscular Hemoglobin Concent 34g/dL (31-37) Red Cell Distribution Width 13.9% (11.5-14.5) Platelet Count 80x10^3/uL (140-400) Neutrophils (%) (Auto) 88% (31-73) Lymphocytes (%) (Auto) 9% (24-48) Monocytes (%) (Auto) 3% (0-9) Eosinophils (%) (Auto) 0% (0-3) Basophils (%) (Auto) 1% (0-3) Neutrophils # (Auto) 10.9x10^3uL (1.8-7.7) Lymphocytes # (Auto) 1.1x10^3/uL (1.0-4.8) Monocytes # (Auto) 0.3x10^3/uL (0.0-1.1) Eosinophils # (Auto) 0.0x10^3/uL (0.0-0.7) Basophils # (Auto) 0.1x10^3/uL (0.0-0.2) Sodium Level 145mmol/L (136-145) Potassium Level 3.1mmol/L (3.5-5.1) Chloride Level 105mmol/L (98-107) Carbon Dioxide Level 32mmol/L (21-32) Anion Gap 8 (6-14) Blood Urea Nitrogen 24mg/dL (8-26) Creatinine 1.2mg/dL (0.7-1.3) Estimated GFR (Cockcroft-Gault) 76.1 Glucose Level 278mg/dL (70-99) Lactic Acid Level 3.4mmol/L (0.4-2.0) Calcium Level 7.2mg/dL (8.5-10.1) Glucose (Fingerstick) 266mg/dL (70-99) 204mg/dL (70-99) O2 Saturation % (92-99) Arterial Blood pH 7.59 (7.35-7.45) Arterial Blood pCO2 at Patient Temp 34mmHg (35-46) Arterial Blood pO2 at Patient Temp 135mmHg (75-108) Arterial Blood HCO3 32mmol/L (21-28) Arterial Blood Base Excess 10mmol/L (-3-3) FiO2 40 Laboratory Tests Test 08/26/16 00:11 08/26/16 05:40 08/26/16 05:45 08/26/16 08:45 Glucose (Fingerstick) 176mg/dL (70-99) 266mg/dL (70-99) White Blood Count 12.5x10^3/uL (4.0-11.0) Red Blood Count 2.17x10^6/uL (4.30-5.70) Hemoglobin 7.4g/dL (13.0-17.5) Hematocrit 21.6% (39.0-53.0) Mean Corpuscular Volume 100fL (79-100) Mean Corpuscular Hemoglobin 34pg (25-35) Mean Corpuscular Hemoglobin Concent 34g/dL (31-37) Red Cell Distribution Width 13.9% (11.5-14.5) Platelet Count 80x10^3/uL (140-400) Neutrophils (%) (Auto) 88% (31-73) Lymphocytes (%) (Auto) 9% (24-48) Monocytes (%) (Auto) 3% (0-9) Eosinophils (%) (Auto) 0% (0-3) Basophils (%) (Auto) 1% (0-3) Neutrophils # (Auto) 10.9x10^3uL (1.8-7.7) Lymphocytes # (Auto) 1.1x10^3/uL (1.0-4.8) Monocytes # (Auto) 0.3x10^3/uL (0.0-1.1) Eosinophils # (Auto) 0.0x10^3/uL (0.0-0.7) Basophils # (Auto) 0.1x10^3/uL (0.0-0.2) Sodium Level 145mmol/L (136-145) Potassium Level 3.1mmol/L (3.5-5.1) Chloride Level 105mmol/L (98-107) Carbon Dioxide Level 32mmol/L (21-32) Anion Gap 8 (6-14) Blood Urea Nitrogen 24mg/dL (8-26) Creatinine 1.2mg/dL (0.7-1.3) Estimated GFR (Cockcroft-Gault) 76.1 Glucose Level 278mg/dL (70-99) Lactic Acid Level 3.4mmol/L (0.4-2.0) Calcium Level 7.2mg/dL (8.5-10.1) O2 Saturation % (92-99) Arterial Blood pH 7.59 (7.35-7.45) Arterial Blood pCO2 at Patient Temp 34mmHg (35-46) Arterial Blood pO2 at Patient Temp 135mmHg (75-108) Arterial Blood HCO3 32mmol/L (21-28) Arterial Blood Base Excess 10mmol/L (-3-3) FiO2 40 Test 08/26/16 12:16 Glucose (Fingerstick) 204mg/dL (70-99) Microbiology 08/23/16 Blood Culture - Preliminary, Resulted NO GROWTH AFTER 3 DAYS 08/23/16 Urine Culture - Preliminary, Resulted 08/23/16 Urine Culture Result 1 (SHANON) - Preliminary, Resulted Medications Current Medications Sodium Chloride 1,000 ml @ 1,000 mls/hr 1X ONCE IV Last administered on 11:16; Start 08/23/16 at 11:15; Stop 08/23/16 at 12:14; Status DC Sodium Chloride (Iv Sodium Chloride 0.9% 1000ml Bag) 1,000 ml @ 1,000 mls/hr 1X ONCE IV Last administered on 08/23/16 11:30; Start 08/23/16 at 11:30; Stop 08/23/16 at 12:29; Status DC Vancomycin HCl (Vanco Per Pharmacy) 1 each PRN DAILY PRN MC SEE COMMENTS Last administered on 08/25/16 13:04; Start 08/23/16 at 11:30; Stop 08/26/16 at 08:18; Status DC Piperacillin Sod/ Tazobactam Sod 1 each 1 each PRN DAILY PRN MC SEE COMMENTS; Start 08/23/16 at 11:30; Stop 08/25/16 at 09:54; Status DC Levofloxacin/ Dextrose 100 ml @ 100 mls/hr 1X ONCE IV Last administered on 12:58; Start 08/23/16 at 11:30; Stop 08/23/16 at 12:29; Status DC Piperacillin Sod/ Tazobactam Sod 4.5 gm/Sodium Chloride 100 ml @ 200 mls/hr 1X ONCE IV Last administered on 08/23/16 12:00; Start 08/23/16 at 12:00; Stop 08/23/16 at 12:29; Status DC Vancomycin HCl 1.5 gm/Sodium Chloride 500 ml @ 250 mls/hr 1X ONCE IV Last administered on 08/23/16 12:30; Start 08/23/16 at 12:30; Stop 08/23/16 at 14:29 ; Status DC Sodium Chloride 1,000 ml @ 1,000 mls/hr 1X ONCE IV Last administered on 12:46; Start 08/23/16 at 12:30; Stop 08/23/16 at 13:29; Status DC Piperacillin Sod/ Tazobactam Sod 3.375 gm/Sodium Chloride 50 ml @ 100 mls/hr Q6HRS IV Last administered on 08/26/16 12:32; Start 08/23/16 at 18:00 Vancomycin HCl/ Sodium Chloride (Iv Sodium Chloride 0.9% 250ml) 250 ml @ 250 mls/hr Q24H IV ; Start 08/24/16 at 13:00; Status Cancel Vancomycin HCl 1 each 1X ONCE MC ; Start 08/25/16 at 12:30; Stop 08/25/16 at 12: 31; Status DC Labetalol HCl (Normodyne) 10 mg PRN Q2HR PRN IVP HYPERTENSION, SEE COMMENTS; Start 08/23/16 at 15:45 Aspirin (Confabb Aspirin) 325 mg DAILY PEG Last administered on 08/26/16 09:29; Start 08/24/16 at 09:00 Bisacodyl (Dulcolax Supp) 10 mg PRN DAILY PRN RC CONSTIPATION; Start 08/23/16 at 15:45 Vitamin D (Vitamin D3) 2,000 unit DAILY PO Last administered on 08/26/16 09:29 ; Start 08/24/16 at 09:00 Levetiracetam (Keppra) 500 mg BID PO ; Start 08/23/16 at 21:00; Stop 08/23/16 at 21:00; Status DC Vitamin B Complex (Hector B) 1 tab DAILY PO Last administered on 08/26/16 09:29; Start 08/24/16 at 09:00 Magnesium Hydroxide (Milk Of Magnesia) 2,400 mg PRN DAILY PRN PO CONSTIPATION; Start 08/23/16 at 15:45 Acetaminophen 500 mg 500 mg PRN Q6HRS PRN PO MILD PAIN / TEMP; Start 08/23/16 at 15:45 Levetiracetam/ Sodium Chloride (Keppra/Iv Sodium Chloride 0.9% 100ml) 105 ml @ 400 mls/hr Q12HR IV Last administered on 08/26/16 09:28; Start 08/23/16 at 21: 00 Pantoprazole Sodium (Protonix Vial) 40 mg DAILYAC IVP Last administered on 07:59; Start 08/24/16 at 07:30 Heparin Sodium (Porcine) 5000 unit 5,000 unit Q8HRS SQ ; Start 08/23/16 at 22:00 ; Stop 08/23/16 at 22:00; Status DC Sodium Bicarbonate/ Dextrose 1,150 ml @ 150 mls/hr Q7H40M IV Last administered on 08/25/16 08:05; Start 08/23/16 at 16:30; Stop 08/25/16 at 10:35; Status DC Sodium Bicarbonate 50 meq 1X ONCE IV Last administered on 08/23/16 16:24; Start 08/23/16 at 16:15; Stop 08/23/16 at 16:17; Status DC Albuterol/ Ipratropium 3 ml 3 ml RTQID NEB Last administered on 08/26/16 15:57 ; Start 08/23/16 at 20:00 Vancomycin HCl 750 mg/Sodium Chloride 250 ml @ 250 mls/hr Q24H IV Last administered on 08/24/16 12:15; Start 08/24/16 at 13:00; Stop 08/25/16 at 12:55 ; Status DC Norepinephrine Bitartrate 8 mg/ Sodium Chloride 258 ml @ 0 mls/hr CONT PRN IV SEE I/O RECORD Last administered on 08/25/16 00:28; Start 08/23/16 at 18:15 Sodium Chloride (Iv Sodium Chloride 0.9% 1000ml Bag) 1,000 ml @ 500 mls/hr Q2H IV Last administered on 08/23/16 17:00; Start 08/23/16 at 18:30; Stop at 20:29; Status DC Hydrocortisone Sodium Succinate (Solu-Cortef) 100 mg Q8HRS IV Last administered on 08/26/16 14:54; Start 08/23/16 at 22:30; Stop 08/26/16 at 16:49; Status DC Succinylcholine Chloride (Anectine) 200 mg STK-MED ONCE .ROUTE ; Start 08/24/16 at 04:15; Stop 08/24/16 at 04:16; Status DC Etomidate 20 mg 20 mg STK-MED ONCE IV ; Start 08/24/16 at 04:15; Stop 08/24/16 at 04:16; Status DC Fentanyl Citrate (Fentanyl 600 Mcg/30 ml DECAL APPLIER) 30 ml @ 0 mls/hr CONT PRN IV PROTOCOL; Start 08/24/16 at 04:45 Fentanyl Citrate (Fentanyl 2ml Vial) 25 mcg PRN Q1HR PRN IV COMM; Start at 04:45 Fentanyl Citrate (Fentanyl 2ml Vial) 50 mcg PRN Q1HR PRN IV COMM; Start at 04:45 Chlorhexidine Gluconate 15 ml 15 ml BID MM Last administered on 08/26/16 09:29 ; Start 08/24/16 at 09:00 Midazolam HCl 100 ml @ 0 mls/hr CONT PRN IV PER PROTOCOL Last administered on 10:50; Start 08/24/16 at 04:45 Midazolam HCl 100 ml @ As Directed STK-MED ONCE IV ; Start 08/24/16 at 04:52; Stop 08/24/16 at 04:53; Status DC Sodium Chloride 1,000 ml @ 150 mls/hr Q6H40M IV Last administered on 06:13; Start 08/24/16 at 05:45; Stop 08/24/16 at 09:59; Status DC Vasopressin 40 unit/Dextrose 102 ml @ 6 mls/hr 1X ONCE IV Last administered on 08/24/16 06:12; Start 08/24/16 at 06:00; Stop 08/24/16 at 20:00; Status DC Phenylephrine HCl 20 mg/Sodium Chloride 252 ml @ 0 mls/hr CONT PRN IV SEE I/O RECORD Last administered on 08/24/16 07:28; Start 08/24/16 at 05:45 Albumin Human 500 ml @ 125 mls/hr 1X ONCE IV Last administered on 08/24/16 06:20; Start 08/24/16 at 05:45; Stop 08/24/16 at 09:44; Status DC Micafungin Sodium 100 mg/Dextrose 100 ml @ 100 mls/hr Q24H IV Last administered on 08/26/16 09:29; Start 08/24/16 at 09:00 Epinephrine HCl/ Sodium Chloride (Adrenalin/Iv Sodium Chloride 0.9% 250ml) 254 ml @ 0 mls/hr CONT PRN IV SEE I/O RECORD; Start 08/24/16 at 07:30 Epinephrine HCl (Adrenalin) 30 mg STK-MED ONCE .ROUTE ; Start 08/23/16 at 12:00 ; Stop 08/24/16 at 10:38; Status DC Epinephrine HCl 4 mg STK-MED ONCE .ROUTE ; Start 08/23/16 at 12:00; Stop at 10:38; Status DC Sodium Bicarbonate 100 meq 100 meq STK-MED ONCE .ROUTE ; Start 08/23/16 at 12:00 ; Stop 08/24/16 at 10:38; Status DC Levothyroxine Sodium 50 mcg/ Sodium Chloride 5 ml @ 100 mls/hr DAILY IVP Last administered on 08/26/16 09:29; Start 08/24/16 at 15:00 Phytonadione 10 mg/Sodium Chloride 51 ml @ 102 mls/hr 1X ONCE IV Last administered on 08/24/16 15:14; Start 08/24/16 at 14:30; Stop 08/24/16 at 14:59 ; Status DC Vasopressin/ Dextrose (Vasostrict) 102 ml @ 6 mls/hr CONT PRN IV SEE I/O RECORD Last administered on 08/26/16 05:44; Start 08/24/16 at 18:15 Acetaminophen 650 mg 650 mg PRN Q6HRS PRN PEG MILD PAIN / TEMP Last administered on 08/24/16 20:52; Start 08/24/16 at 20:45 Levofloxacin/ Dextrose (LEVAQUIN 500mg PREMIX) 100 ml @ 100 mls/hr 1X ONCE IV Last administered on 08/25/16 08:06; Start 08/25/16 at 08:00; Stop 08/25/16 at 08:59; Status DC Insulin Aspart (Novolog) 0-9 UNITS TIDWMEALS SQ Last administered on 08/25/16 17:23; Start 08/25/16 at 08:00; Stop 08/25/16 at 19:32; Status DC Dextrose 12.5 gm PRN Q15MIN PRN IV SEE COMMENTS; Start 08/25/16 at 07:30 Insulin Aspart 10 units 10 units 1X ONCE SQ Last administered on 08/25/16 08: 08; Start 08/25/16 at 08:00; Stop 08/25/16 at 08:01; Status DC Sodium Chloride 1,000 ml @ 100 mls/hr Q10H IV Last administered on 08/26/16 01 :25; Start 08/25/16 at 11:00 Potassium Chloride/Sodium Chloride (Iv Sodium Chloride 0.45%) 1,015 ml @ 75 mls /hr 1X ONCE IV Last administered on 08/25/16 10:55; Start 08/25/16 at 11:00; Stop 08/26/16 at 00:31; Status DC Insulin Aspart 10 units 10 units 1X ONCE SQ Last administered on 08/25/16 12: 42; Start 08/25/16 at 12:45; Stop 08/25/16 at 12:46; Status DC Vancomycin HCl/ Sodium Chloride (Iv Sodium Chloride 0.9% 250ml) 250 ml @ 250 mls/hr Q18H IV Last administered on 08/26/16 06:39; Start 08/25/16 at 13:00; Stop 08/26/16 at 08:18; Status DC Insulin Aspart 0-9 UNITS Q6HRS SQ Last administered on 08/26/16 12:28; Start at 00:00 Levofloxacin/ Dextrose 100 ml @ 100 mls/hr 1X ONCE IV Last administered on 09:28; Start 08/26/16 at 09:30; Stop 08/26/16 at 10:29; Status DC Potassium Chloride/Sodium Chloride (Iv Sodium Chloride 0.45%) 1,015 ml @ 75 mls /hr 1X ONCE IV Last administered on 08/26/16 15:23; Start 08/26/16 at 11:00; Stop 08/27/16 at 00:31 Hydrocortisone Sodium Succinate (Solu-Cortef) 100 mg BID IV ; Start 08/27/16 at 09:00 Active Scripts Active Reported Milk Of Magnesia (Magnesium Hydroxide) 2,400 Mg/10 Ml Oral.susp 2,400 Mg PO DAILY PRN Dulcolax (Bisacodyl) 10 Mg Supp.rect 10 Mg RC PRN DAILY PRN Aspirin 325 Mg Tablet 1 Tab PEG DAILY Tylenol (Acetaminophen) 325 Mg Tablet 2 Tab PO PRN Q6HRS PRN Vitamin B Complex 1 Each Tablet 1 Tab PO DAILY Vitamin D3 (Cholecalciferol (Vitamin D3)) 1,000 Unit Tablet 2,000 Unit PO DAILY Keppra (Levetiracetam) 500 Mg Tablet 500 Mg PO BID Vitals/I & O Vital Sign - Last 24 Hours 08/25/16 08/25/16 08/25/16 08/25/16 17:40 18:00 19:00 20:00 Temp 97.9 97.9 Pulse 99 97 98 Resp 9 10 10 B/P 100/69 81/63 111/83 Pulse Ox 100 100 100 100 O2 Delivery Ventilator Ventilator Ventilator Ventilator 08/25/16 08/25/16 08/25/16 08/25/16 20:00 20:41 21:00 22:00 Pulse 90 89 Resp 10 10 B/P 118/79 117/76 Pulse Ox 100 100 100 O2 Delivery Mechanical Ventilator Ventilator Ventilator Ventilator 08/25/16 08/25/16 08/25/16 08/25/16 23:00 23:42 23:59 23:59 Temp 97.9 97.9 Pulse 85 88 Resp 10 10 B/P 118/79 131/97 Pulse Ox 100 100 100 O2 Delivery Ventilator Ventilator Ventilator Mechanical Ventilator 08/26/16 08/26/16 08/26/16 08/26/16 00:15 01:00 02:00 02:03 Pulse 86 85 86 Resp 10 10 10 B/P 138/93 99/71 109/81 Pulse Ox 100 100 100 100 O2 Delivery Ventilator Ventilator Ventilator Ventilator 08/26/16 08/26/16 08/26/16 08/26/16 03:00 03:15 03:30 03:45 Pulse 84 84 84 84 Resp 10 10 10 10 B/P 112/84 115/83 113/78 98/75 Pulse Ox 100 100 100 100 O2 Delivery Ventilator Ventilator Ventilator Ventilator 08/26/16 08/26/16 08/26/16 08/26/16 03:59 04:00 04:00 05:00 Temp 98.0 98.0 Pulse 88 82 Resp 10 10 B/P 118/93 106/81 Pulse Ox 100 100 100 O2 Delivery Ventilator Mechanical Ventilator Ventilator Ventilator 08/26/16 08/26/16 08/26/16 08/26/16 05:43 06:00 07:00 08:00 Pulse 89 87 Resp 10 10 B/P 117/81 118/88 Pulse Ox 100 100 100 100 O2 Delivery Ventilator Ventilator Ventilator Ventilator 08/26/16 08/26/16 08/26/16 08/26/16 08:00 08:00 09:00 10:00 Temp 98.2 98.2 Pulse 91 98 84 Resp 10 10 8 B/P 90/71 65/52 90/65 Pulse Ox 100 100 100 O2 Delivery Mechanical Ventilator Ventilator Ventilator Ventilator 08/26/16 08/26/16 08/26/16 08/26/16 11:00 11:30 12:00 12:00 Temp 97.9 97.9 Pulse 77 88 Resp 8 8 B/P 105/73 120/85 Pulse Ox 100 100 100 O2 Delivery Ventilator Ventilator Ventilator Mechanical Ventilator 08/26/16 08/26/16 08/26/16 08/26/16 13:00 13:21 14:00 16:00 Pulse 81 80 Resp 10 10 B/P 138/91 118/88 Pulse Ox 100 100 100 100 O2 Delivery Ventilator Ventilator Ventilator Ventilator Intake and Output 08/25/16 08/25/16 08/26/16 15:00 23:00 07:00 Intake Total 550 ml 2163.42 ml 2233 ml Output Total 1500 ml 1385 ml 740 ml Balance -950 ml 778.42 ml 1493 ml JAMEE GUZMAN III, DO Aug 26, 2016 17:35
[2016-08-27] VITALS (26 sets, daily range): BP systolic 86–140; BP diastolic 63–95
[2016-08-27] MEDS: PIPERACILLIN/TAZOBACTAM 3.375 GM in IV NORMAL SALINE 50ML 50 ML IV SCH ×5 (00:21→23:58)
[2016-08-27] MEDS: INSULIN ASPART 300 UNITS/3 ML INSULN.PEN SQ SCH ×5 (00:30→23:59)
[2016-08-27] MEDS: IV 1/2 NORMAL SALINE 1,000 ML IV SCH ×2 (03:00→15:37)
[2016-08-27 06:16] LABS: CALCIUM 7.7 mg/dL (8.5-10.1); CREATININE 1.1 mg/dL (0.7-1.3); GFR 84.1; POTASSIUM 3.3 mmol/L (3.5-5.1)
--- NOTE | 2016-08-27 07:33 | PDOC ---
Infectious Disease Note Subjective Subjective intubated/sedated ROS ROS unobtainable Vital Sign Vital Signs Vital Signs Date Time Temp Pulse Resp B/P Pulse Ox O2 Delivery O2 Flow Rate FiO2 08/27/16 07:00 87 10 103/74 100 Ventilator 08/27/16 04:00 98.2 98.2 Physical Exam PHYSICAL EXAM GENERAL: NAD, Awakens some HEENT: PERRL, cataracts, OC/OP ETT/OGT NECK: Supple, no JVD, no LN LUNGS: Clear HEART: S1S2, no gallop, no murmur ABD: Soft, NT, no organomegaly, no rebound Bowling EXT: No edema, no cyanosis [employer]: Alert some, no focal neurologic deficit SKIN: No rash IV: PICC - clean LUE Labs Lab Laboratory Tests Test 08/26/16 08:45 08/26/16 12:16 08/26/16 18:28 08/27/16 00:24 O2 Saturation % (92-99) Arterial Blood pH 7.59 (7.35-7.45) Arterial Blood pCO2 at Patient Temp 34mmHg (35-46) Arterial Blood pO2 at Patient Temp 135mmHg (75-108) Arterial Blood HCO3 32mmol/L (21-28) Arterial Blood Base Excess 10mmol/L (-3-3) FiO2 40 Glucose (Fingerstick) 204mg/dL (70-99) 230mg/dL (70-99) 217mg/dL (70-99) Test 08/27/16 05:44 08/27/16 05:45 Glucose (Fingerstick) 221mg/dL (70-99) Sodium Level 145mmol/L (136-145) Potassium Level 3.3mmol/L (3.5-5.1) Chloride Level 106mmol/L (98-107) Carbon Dioxide Level 33mmol/L (21-32) Anion Gap 6 (6-14) Blood Urea Nitrogen 25mg/dL (8-26) Creatinine 1.1mg/dL (0.7-1.3) Estimated GFR (Cockcroft-Gault) 84.1 Glucose Level 251mg/dL (70-99) Calcium Level 7.7mg/dL (8.5-10.1) Micro Proteus mirabilis 50,000-100,000 colony forming units per mL ANTIMICROBIAL SUSCEPTIBILITY Final Comment S = Susceptible; I = Intermediate; R = Resistant P = Positive; N = Negative MICS are expressed in micrograms per mL Antibiotic RSLT#1 RSLT#2 RSLT#3 RSLT#4 Amoxicillin/Clavulanic Acid S<=2 Ampicillin S<=2 Cefazolin S =8 Cefepime S<=1 Ceftriaxone S<=1 Cefuroxime S<=1 Cephalothin S =8 Ciprofloxacin S<=0.25 Ertapenem S<=0.5 Gentamicin S<=1 Levofloxacin S<=0.12 Nitrofurantoin R =128 Piperacillin S<=4 Tetracycline R>=16 Tobramycin S<=1 Trimethoprim/Sulfa S<=20 Objective Assessment Severe Sepsis - improved Hyperglycemia -improved ? early DIC vs sepsis with thrombocytopenia and coagulopathy - stable Hydronephrosis on U/S - Urology consulted and pending. Evaluated by Urology but note pending per nursing Acute Resp failure - intubated Lactic acidosis MAHAD with h/o hydronephrosis -better + BM Bandemia/leukocytosis - on Hydrocortisone Hematuria - improved UTI - Proteus H/o granulomas Plan Plan of Care Cont Zosyn D/c Micafungin. Hold further Levofloxacin F/u labs in am and cults Needs CT chest/abd/pelvis when stable Critically ill ANETA SAINZ MD Aug 27, 2016 07:33
[2016-08-27] MEDS: HYDROCORTISONE SOD SUCC/PF 100 MG/2 ML VIAL. IV SCH ×2 (08:10→21:12)
[2016-08-27] MEDS: PANTOPRAZOLE IV PUSH 40 MG VIAL. IVP SCH (08:12)
[2016-08-27] MEDS: CHLORHEXIDINE 0.12% 15 ML MOUTHWASH. MM SCH ×2 (08:13→21:11)
[2016-08-27] MEDS: ASPIRIN 325 MG TABLET PEG SCH (08:24)
[2016-08-27] MEDS: VITAMIN B COMPLEX TABLET. PO SCH (08:24)
[2016-08-27] MEDS: CHOLECALCIFEROL (VITAMIN D3) 1,000 UNIT TABLET PO SCH (08:25)
[2016-08-27] MEDS: LEVETIRACETAM 500 MG in IV NORMAL SALINE 100ML 100 ML IV SCH ×2 (09:15→21:11)
[2016-08-27] MEDS: LEVOTHYROXINE SODIUM 50 MCG in IV NORMAL SALINE 50ML 5 ML IVP SCH (09:15)
[2016-08-27] MEDS: IPRATRPIUM/ALBUTEROL 0.5/2.5MG 3 ML NEBU. NEB SCH ×4 (09:18→20:33)
[2016-08-27 09:37] LABS: HCO3 ABG 30 mmol/L (21-28); PCO2 ABG 40 mmHg (35-46); PO2 ABG 129 mmHg (75-108); SAT O2 ABG 98 % (92-99)
[2016-08-27 09:45] LABS: FIO2 ABG 40
[2016-08-27 10:31] LABS: HEMATOCRIT 23.2 % (39.0-53.0); HEMOGLOBIN 7.7 g/dL (13.0-17.5); RED BLOOD COUNT 2.3 x10^6/uL (4.30-5.70); RED CELL DISTRIBUTION WIDTH 14.2 % (11.5-14.5); WHITE BLOOD COUNT 18.9 x10^3/uL (4.0-11.0)
--- NOTE | 2016-08-27 12:16 | PDOC ---
Renal-Progress Notes Subjective Notes Notes NONE History of Present Illness Hx of present illness NO CHANGE Vitals Vitals Vital Signs Date Time Temp Pulse Resp B/P Pulse Ox O2 Delivery O2 Flow Rate FiO2 08/27/16 12:07 100 Ventilator 08/27/16 11:00 85 9 86/65 08/27/16 08:00 97.9 97.9 Weight Weight [ ] I.O. Intake and Output Intake and Output 08/27/16 07:00 Intake Total 1340.9 ml Output Total 1515 ml Balance -174.1 ml Intake IV Total 1230.9 ml Tube Feeding 110 ml Output Urine Total 1515 ml Gastric Drainage Total 0 ml # Bowel Movements 5 Labs Labs Laboratory Tests Test 08/26/16 18:28 08/27/16 00:24 08/27/16 05:44 08/27/16 05:45 Glucose (Fingerstick) 230mg/dL (70-99) 217mg/dL (70-99) 221mg/dL (70-99) Sodium Level 145mmol/L (136-145) Potassium Level 3.3mmol/L (3.5-5.1) Chloride Level 106mmol/L (98-107) Carbon Dioxide Level 33mmol/L (21-32) Anion Gap 6 (6-14) Blood Urea Nitrogen 25mg/dL (8-26) Creatinine 1.1mg/dL (0.7-1.3) Estimated GFR (Cockcroft-Gault) 84.1 Glucose Level 251mg/dL (70-99) Calcium Level 7.7mg/dL (8.5-10.1) Test 08/27/16 08:00 08/27/16 10:12 08/27/16 11:59 O2 Saturation 98% (92-99) Arterial Blood pH 7.50 (7.35-7.45) Arterial Blood pCO2 at Patient Temp 40mmHg (35-46) Arterial Blood pO2 at Patient Temp 129mmHg (75-108) Arterial Blood HCO3 30mmol/L (21-28) Arterial Blood Base Excess 6mmol/L (-3-3) FiO2 40 White Blood Count 18.9x10^3/uL (4.0-11.0) Red Blood Count 2.30x10^6/uL (4.30-5.70) Hemoglobin 7.7g/dL (13.0-17.5) Hematocrit 23.2% (39.0-53.0) Mean Corpuscular Volume 101fL (79-100) Mean Corpuscular Hemoglobin 34pg (25-35) Mean Corpuscular Hemoglobin Concent 33g/dL (31-37) Red Cell Distribution Width 14.2% (11.5-14.5) Platelet Count 78x10^3/uL (140-400) Glucose (Fingerstick) 210mg/dL (70-99) Micro Micro Microbiology 08/23/16 Blood Culture - Preliminary, Resulted NO GROWTH AFTER 4 DAYS 08/23/16 Urine Culture - Final, Complete 08/23/16 Urine Culture Result 1 (SHANON) - Final, Complete 08/23/16 Antimicrobic Susceptibility - Final, Complete Review of Systems Constitutional: yes: no symptom reported Physical Exam General Appearance: no apparent distress Skin: warm Respiratory: decreased breath sounds Heart: S1S2, RRR Abdomen: soft, bowel sounds present Genitourinary: bladder flat Extremities: pulses present Musculoskeletal: Osteoarthritis Assessment Assessment IMP MAHAD-RESOLVED MET ACIDOSIS-RESOLVED HYPERNATREMIA-RESOLVED HYPOKALEMIA SEPSIS RESP FAILURE PNEUMONIA PLAN REPLACE K CONT TF I WILL SIGN OFF CHRISTA HAMILTON MD Aug 27, 2016 12:16
--- NOTE | 2016-08-27 12:22 | PDOC ---
PROGRESS NOTES Chief Complaint Chief Complaint 1. Severe SEPSIS infectious in origin (PNA) with HIGH LACTATE and ORGAN dysfunction (HYPOTENSION) 2. PNEUMONIA, bed bound, gram pos, gram neg, anaerobes, ASPIRATION highly likely 3. BED bound, non verbal, hx down's hx CVA 4. DYsphagia, indwelling PEG 5. OLiguric renal failure 6. MAHAD, vasomotor 7. GAp metabolic acidosis, recent vomiting, severe sepsis 8. hypothyroidism 9. down syndrome History of Present Illness History of Present Illness Patient seen in ICU. On ventilator: AC/ 8; TV 400; 40% FiO2; PEEP 5; Sat 100%. Currently on Levophed, Versed, and Vasopressin drips. Labs noted Notes reviewed Vitals Vitals Vital Signs Date Time Temp Pulse Resp B/P Pulse Ox O2 Delivery O2 Flow Rate FiO2 08/27/16 12:07 100 Ventilator 08/27/16 11:00 85 9 86/65 08/27/16 08:00 97.9 97.9 Physical Exam Physical Exam intubated, sedated General: Other (SEDATED) Heart: Regular rate Lungs: Clear Abdomen: Normal bowel sounds, Soft Extremities: No clubbing Skin: No breakdown Labs LABS Laboratory Tests Test 08/26/16 18:28 08/27/16 00:24 08/27/16 05:44 08/27/16 05:45 Glucose (Fingerstick) 230mg/dL (70-99) 217mg/dL (70-99) 221mg/dL (70-99) Sodium Level 145mmol/L (136-145) Potassium Level 3.3mmol/L (3.5-5.1) Chloride Level 106mmol/L (98-107) Carbon Dioxide Level 33mmol/L (21-32) Anion Gap 6 (6-14) Blood Urea Nitrogen 25mg/dL (8-26) Creatinine 1.1mg/dL (0.7-1.3) Estimated GFR (Cockcroft-Gault) 84.1 Glucose Level 251mg/dL (70-99) Calcium Level 7.7mg/dL (8.5-10.1) Test 08/27/16 08:00 08/27/16 10:12 08/27/16 11:59 O2 Saturation 98% (92-99) Arterial Blood pH 7.50 (7.35-7.45) Arterial Blood pCO2 at Patient Temp 40mmHg (35-46) Arterial Blood pO2 at Patient Temp 129mmHg (75-108) Arterial Blood HCO3 30mmol/L (21-28) Arterial Blood Base Excess 6mmol/L (-3-3) FiO2 40 White Blood Count 18.9x10^3/uL (4.0-11.0) Red Blood Count 2.30x10^6/uL (4.30-5.70) Hemoglobin 7.7g/dL (13.0-17.5) Hematocrit 23.2% (39.0-53.0) Mean Corpuscular Volume 101fL (79-100) Mean Corpuscular Hemoglobin 34pg (25-35) Mean Corpuscular Hemoglobin Concent 33g/dL (31-37) Red Cell Distribution Width 14.2% (11.5-14.5) Platelet Count 78x10^3/uL (140-400) Glucose (Fingerstick) 210mg/dL (70-99) Review of Systems Review of Systems unobtainable Assessment and Plan Assessmemt and Plan ASSESSMENT: 1. Severe SEPSIS infectious in origin (PNA) with HIGH LACTATE and ORGAN dysfunction (HYPOTENSION) 2. PNEUMONIA, bed bound, gram pos, gram neg, anaerobes, ASPIRATION highly likely 3. BED bound, non verbal, hx down's hx CVA 4. DYsphagia, indwelling PEG 5. OLiguric renal failure 6. MAHAD, vasomotor 7. GAp metabolic acidosis, recent vomiting, severe sepsis 8. hypothyroidism 9. down syndrome PLAN: - cont mechanical Ventilation - cont IV Pressors - cont Antibx - Recheck daily labs - cont tube feedings - Monitor platelets - Replace Lytes - Prognosis guarded at best Problems: Comment Review of Relevant I have reviewed the following items kassie (where applicable) has been applied. Labs Laboratory Tests Test 08/25/16 17:20 08/26/16 00:11 08/26/16 05:40 08/26/16 05:45 Glucose (Fingerstick) 249mg/dL (70-99) 176mg/dL (70-99) 266mg/dL (70-99) White Blood Count 12.5x10^3/uL (4.0-11.0) Red Blood Count 2.17x10^6/uL (4.30-5.70) Hemoglobin 7.4g/dL (13.0-17.5) Hematocrit 21.6% (39.0-53.0) Mean Corpuscular Volume 100fL (79-100) Mean Corpuscular Hemoglobin 34pg (25-35) Mean Corpuscular Hemoglobin Concent 34g/dL (31-37) Red Cell Distribution Width 13.9% (11.5-14.5) Platelet Count 80x10^3/uL (140-400) Neutrophils (%) (Auto) 88% (31-73) Lymphocytes (%) (Auto) 9% (24-48) Monocytes (%) (Auto) 3% (0-9) Eosinophils (%) (Auto) 0% (0-3) Basophils (%) (Auto) 1% (0-3) Neutrophils # (Auto) 10.9x10^3uL (1.8-7.7) Lymphocytes # (Auto) 1.1x10^3/uL (1.0-4.8) Monocytes # (Auto) 0.3x10^3/uL (0.0-1.1) Eosinophils # (Auto) 0.0x10^3/uL (0.0-0.7) Basophils # (Auto) 0.1x10^3/uL (0.0-0.2) Sodium Level 145mmol/L (136-145) Potassium Level 3.1mmol/L (3.5-5.1) Chloride Level 105mmol/L (98-107) Carbon Dioxide Level 32mmol/L (21-32) Anion Gap 8 (6-14) Blood Urea Nitrogen 24mg/dL (8-26) Creatinine 1.2mg/dL (0.7-1.3) Estimated GFR (Cockcroft-Gault) 76.1 Glucose Level 278mg/dL (70-99) Lactic Acid Level 3.4mmol/L (0.4-2.0) Calcium Level 7.2mg/dL (8.5-10.1) Test 08/26/16 08:45 08/26/16 12:16 08/26/16 18:28 08/27/16 00:24 O2 Saturation % (92-99) Arterial Blood pH 7.59 (7.35-7.45) Arterial Blood pCO2 at Patient Temp 34mmHg (35-46) Arterial Blood pO2 at Patient Temp 135mmHg (75-108) Arterial Blood HCO3 32mmol/L (21-28) Arterial Blood Base Excess 10mmol/L (-3-3) FiO2 40 Glucose (Fingerstick) 204mg/dL (70-99) 230mg/dL (70-99) 217mg/dL (70-99) Test 08/27/16 05:44 08/27/16 05:45 08/27/16 08:00 08/27/16 10:12 Glucose (Fingerstick) 221mg/dL (70-99) Sodium Level 145mmol/L (136-145) Potassium Level 3.3mmol/L (3.5-5.1) Chloride Level 106mmol/L (98-107) Carbon Dioxide Level 33mmol/L (21-32) Anion Gap 6 (6-14) Blood Urea Nitrogen 25mg/dL (8-26) Creatinine 1.1mg/dL (0.7-1.3) Estimated GFR (Cockcroft-Gault) 84.1 Glucose Level 251mg/dL (70-99) Calcium Level 7.7mg/dL (8.5-10.1) O2 Saturation 98% (92-99) Arterial Blood pH 7.50 (7.35-7.45) Arterial Blood pCO2 at Patient Temp 40mmHg (35-46) Arterial Blood pO2 at Patient Temp 129mmHg (75-108) Arterial Blood HCO3 30mmol/L (21-28) Arterial Blood Base Excess 6mmol/L (-3-3) FiO2 40 White Blood Count 18.9x10^3/uL (4.0-11.0) Red Blood Count 2.30x10^6/uL (4.30-5.70) Hemoglobin 7.7g/dL (13.0-17.5) Hematocrit 23.2% (39.0-53.0) Mean Corpuscular Volume 101fL (79-100) Mean Corpuscular Hemoglobin 34pg (25-35) Mean Corpuscular Hemoglobin Concent 33g/dL (31-37) Red Cell Distribution Width 14.2% (11.5-14.5) Platelet Count 78x10^3/uL (140-400) Test 08/27/16 11:59 Glucose (Fingerstick) 210mg/dL (70-99) Laboratory Tests Test 08/26/16 18:28 08/27/16 00:24 08/27/16 05:44 08/27/16 05:45 Glucose (Fingerstick) 230mg/dL (70-99) 217mg/dL (70-99) 221mg/dL (70-99) Sodium Level 145mmol/L (136-145) Potassium Level 3.3mmol/L (3.5-5.1) Chloride Level 106mmol/L (98-107) Carbon Dioxide Level 33mmol/L (21-32) Anion Gap 6 (6-14) Blood Urea Nitrogen 25mg/dL (8-26) Creatinine 1.1mg/dL (0.7-1.3) Estimated GFR (Cockcroft-Gault) 84.1 Glucose Level 251mg/dL (70-99) Calcium Level 7.7mg/dL (8.5-10.1) Test 08/27/16 08:00 08/27/16 10:12 08/27/16 11:59 O2 Saturation 98% (92-99) Arterial Blood pH 7.50 (7.35-7.45) Arterial Blood pCO2 at Patient Temp 40mmHg (35-46) Arterial Blood pO2 at Patient Temp 129mmHg (75-108) Arterial Blood HCO3 30mmol/L (21-28) Arterial Blood Base Excess 6mmol/L (-3-3) FiO2 40 White Blood Count 18.9x10^3/uL (4.0-11.0) Red Blood Count 2.30x10^6/uL (4.30-5.70) Hemoglobin 7.7g/dL (13.0-17.5) Hematocrit 23.2% (39.0-53.0) Mean Corpuscular Volume 101fL (79-100) Mean Corpuscular Hemoglobin 34pg (25-35) Mean Corpuscular Hemoglobin Concent 33g/dL (31-37) Red Cell Distribution Width 14.2% (11.5-14.5) Platelet Count 78x10^3/uL (140-400) Glucose (Fingerstick) 210mg/dL (70-99) Microbiology 08/23/16 Blood Culture - Preliminary, Resulted NO GROWTH AFTER 4 DAYS 08/23/16 Urine Culture - Final, Complete 08/23/16 Urine Culture Result 1 (SHANON) - Final, Complete 08/23/16 Antimicrobic Susceptibility - Final, Complete Medications Current Medications Sodium Chloride 1,000 ml @ 1,000 mls/hr 1X ONCE IV Last administered on 11:16; Start 08/23/16 at 11:15; Stop 08/23/16 at 12:14; Status DC Sodium Chloride (Iv Sodium Chloride 0.9% 1000ml Bag) 1,000 ml @ 1,000 mls/hr 1X ONCE IV Last administered on 08/23/16 11:30; Start 08/23/16 at 11:30; Stop 08/23/16 at 12:29; Status DC Vancomycin HCl (Vanco Per Pharmacy) 1 each PRN DAILY PRN MC SEE COMMENTS Last administered on 08/25/16 13:04; Start 08/23/16 at 11:30; Stop 08/26/16 at 08:18; Status DC Piperacillin Sod/ Tazobactam Sod 1 each 1 each PRN DAILY PRN MC SEE COMMENTS; Start 08/23/16 at 11:30; Stop 08/25/16 at 09:54; Status DC Levofloxacin/ Dextrose 100 ml @ 100 mls/hr 1X ONCE IV Last administered on 12:58; Start 08/23/16 at 11:30; Stop 08/23/16 at 12:29; Status DC Piperacillin Sod/ Tazobactam Sod 4.5 gm/Sodium Chloride 100 ml @ 200 mls/hr 1X ONCE IV Last administered on 08/23/16 12:00; Start 08/23/16 at 12:00; Stop 08/23/16 at 12:29; Status DC Vancomycin HCl 1.5 gm/Sodium Chloride 500 ml @ 250 mls/hr 1X ONCE IV Last administered on 08/23/16 12:30; Start 08/23/16 at 12:30; Stop 08/23/16 at 14:29 ; Status DC Sodium Chloride 1,000 ml @ 1,000 mls/hr 1X ONCE IV Last administered on 12:46; Start 08/23/16 at 12:30; Stop 08/23/16 at 13:29; Status DC Piperacillin Sod/ Tazobactam Sod 3.375 gm/Sodium Chloride 50 ml @ 100 mls/hr Q6HRS IV Last administered on 08/27/16 11:58; Start 08/23/16 at 18:00 Vancomycin HCl/ Sodium Chloride (Iv Sodium Chloride 0.9% 250ml) 250 ml @ 250 mls/hr Q24H IV ; Start 08/24/16 at 13:00; Status Cancel Vancomycin HCl 1 each 1X ONCE MC ; Start 08/25/16 at 12:30; Stop 08/25/16 at 12: 31; Status DC Labetalol HCl (Normodyne) 10 mg PRN Q2HR PRN IVP HYPERTENSION, SEE COMMENTS; Start 08/23/16 at 15:45 Aspirin (Gallery AlSharq Aspirin) 325 mg DAILY PEG Last administered on 08/26/16 09:29; Start 08/24/16 at 09:00 Bisacodyl (Dulcolax Supp) 10 mg PRN DAILY PRN RC CONSTIPATION; Start 08/23/16 at 15:45 Vitamin D (Vitamin D3) 2,000 unit DAILY PO Last administered on 08/26/16 09:29 ; Start 08/24/16 at 09:00 Levetiracetam (Keppra) 500 mg BID PO ; Start 08/23/16 at 21:00; Stop 08/23/16 at 21:00; Status DC Vitamin B Complex (Hector B) 1 tab DAILY PO Last administered on 08/26/16 09:29; Start 08/24/16 at 09:00 Magnesium Hydroxide (Milk Of Magnesia) 2,400 mg PRN DAILY PRN PO CONSTIPATION; Start 08/23/16 at 15:45 Acetaminophen 500 mg 500 mg PRN Q6HRS PRN PO MILD PAIN / TEMP; Start 08/23/16 at 15:45 Levetiracetam/ Sodium Chloride (Keppra/Iv Sodium Chloride 0.9% 100ml) 105 ml @ 400 mls/hr Q12HR IV Last administered on 08/27/16 09:15; Start 08/23/16 at 21: 00 Pantoprazole Sodium (Protonix Vial) 40 mg DAILYAC IVP Last administered on 08:12; Start 08/24/16 at 07:30 Heparin Sodium (Porcine) 5000 unit 5,000 unit Q8HRS SQ ; Start 08/23/16 at 22:00 ; Stop 08/23/16 at 22:00; Status DC Sodium Bicarbonate/ Dextrose 1,150 ml @ 150 mls/hr Q7H40M IV Last administered on 08/25/16 08:05; Start 08/23/16 at 16:30; Stop 08/25/16 at 10:35; Status DC Sodium Bicarbonate 50 meq 1X ONCE IV Last administered on 08/23/16 16:24; Start 08/23/16 at 16:15; Stop 08/23/16 at 16:17; Status DC Albuterol/ Ipratropium 3 ml 3 ml RTQID NEB Last administered on 08/27/16 12:06 ; Start 08/23/16 at 20:00 Vancomycin HCl 750 mg/Sodium Chloride 250 ml @ 250 mls/hr Q24H IV Last administered on 08/24/16 12:15; Start 08/24/16 at 13:00; Stop 08/25/16 at 12:55 ; Status DC Norepinephrine Bitartrate 8 mg/ Sodium Chloride 258 ml @ 0 mls/hr CONT PRN IV SEE I/O RECORD Last administered on 08/25/16 00:28; Start 08/23/16 at 18:15 Sodium Chloride (Iv Sodium Chloride 0.9% 1000ml Bag) 1,000 ml @ 500 mls/hr Q2H IV Last administered on 08/23/16 17:00; Start 08/23/16 at 18:30; Stop at 20:29; Status DC Hydrocortisone Sodium Succinate (Solu-Cortef) 100 mg Q8HRS IV Last administered on 08/26/16 14:54; Start 08/23/16 at 22:30; Stop 08/26/16 at 16:49; Status DC Succinylcholine Chloride (Anectine) 200 mg STK-MED ONCE .ROUTE ; Start 08/24/16 at 04:15; Stop 08/24/16 at 04:16; Status DC Etomidate 20 mg 20 mg STK-MED ONCE IV ; Start 08/24/16 at 04:15; Stop 08/24/16 at 04:16; Status DC Fentanyl Citrate (Fentanyl 600 Mcg/30 ml DIRECTOR SERVICE) 30 ml @ 0 mls/hr CONT PRN IV PROTOCOL; Start 08/24/16 at 04:45 Fentanyl Citrate (Fentanyl 2ml Vial) 25 mcg PRN Q1HR PRN IV COMM; Start at 04:45 Fentanyl Citrate (Fentanyl 2ml Vial) 50 mcg PRN Q1HR PRN IV COMM; Start at 04:45 Chlorhexidine Gluconate 15 ml 15 ml BID MM Last administered on 08/27/16 08:13 ; Start 08/24/16 at 09:00 Midazolam HCl 100 ml @ 0 mls/hr CONT PRN IV PER PROTOCOL Last administered on 10:50; Start 08/24/16 at 04:45 Midazolam HCl 100 ml @ As Directed STK-MED ONCE IV ; Start 08/24/16 at 04:52; Stop 08/24/16 at 04:53; Status DC Sodium Chloride 1,000 ml @ 150 mls/hr Q6H40M IV Last administered on 06:13; Start 08/24/16 at 05:45; Stop 08/24/16 at 09:59; Status DC Vasopressin 40 unit/Dextrose 102 ml @ 6 mls/hr 1X ONCE IV Last administered on 08/24/16 06:12; Start 08/24/16 at 06:00; Stop 08/24/16 at 20:00; Status DC Phenylephrine HCl 20 mg/Sodium Chloride 252 ml @ 0 mls/hr CONT PRN IV SEE I/O RECORD Last administered on 08/24/16 07:28; Start 08/24/16 at 05:45 Albumin Human 500 ml @ 125 mls/hr 1X ONCE IV Last administered on 08/24/16 06:20; Start 08/24/16 at 05:45; Stop 08/24/16 at 09:44; Status DC Micafungin Sodium 100 mg/Dextrose 100 ml @ 100 mls/hr Q24H IV Last administered on 08/26/16 09:29; Start 08/24/16 at 09:00; Stop 08/27/16 at 07:37; Status DC Epinephrine HCl/ Sodium Chloride (Adrenalin/Iv Sodium Chloride 0.9% 250ml) 254 ml @ 0 mls/hr CONT PRN IV SEE I/O RECORD; Start 08/24/16 at 07:30 Epinephrine HCl (Adrenalin) 30 mg STK-MED ONCE .ROUTE ; Start 08/23/16 at 12:00 ; Stop 08/24/16 at 10:38; Status DC Epinephrine HCl 4 mg STK-MED ONCE .ROUTE ; Start 08/23/16 at 12:00; Stop at 10:38; Status DC Sodium Bicarbonate 100 meq 100 meq STK-MED ONCE .ROUTE ; Start 08/23/16 at 12:00 ; Stop 08/24/16 at 10:38; Status DC Levothyroxine Sodium 50 mcg/ Sodium Chloride 5 ml @ 100 mls/hr DAILY IVP Last administered on 08/27/16 09:15; Start 08/24/16 at 15:00 Phytonadione 10 mg/Sodium Chloride 51 ml @ 102 mls/hr 1X ONCE IV Last administered on 08/24/16 15:14; Start 08/24/16 at 14:30; Stop 08/24/16 at 14:59 ; Status DC Vasopressin/ Dextrose (Vasostrict) 102 ml @ 6 mls/hr CONT PRN IV SEE I/O RECORD Last administered on 08/26/16 05:44; Start 08/24/16 at 18:15 Acetaminophen 650 mg 650 mg PRN Q6HRS PRN PEG MILD PAIN / TEMP Last administered on 08/24/16 20:52; Start 08/24/16 at 20:45 Levofloxacin/ Dextrose (LEVAQUIN 500mg PREMIX) 100 ml @ 100 mls/hr 1X ONCE IV Last administered on 08/25/16 08:06; Start 08/25/16 at 08:00; Stop 08/25/16 at 08:59; Status DC Insulin Aspart (Novolog) 0-9 UNITS TIDWMEALS SQ Last administered on 08/25/16 17:23; Start 08/25/16 at 08:00; Stop 08/25/16 at 19:32; Status DC Dextrose 12.5 gm PRN Q15MIN PRN IV SEE COMMENTS; Start 08/25/16 at 07:30 Insulin Aspart 10 units 10 units 1X ONCE SQ Last administered on 08/25/16 08: 08; Start 08/25/16 at 08:00; Stop 08/25/16 at 08:01; Status DC Sodium Chloride 1,000 ml @ 100 mls/hr Q10H IV Last administered on 08/26/16 22 :00; Start 08/25/16 at 11:00 Potassium Chloride/Sodium Chloride (Iv Sodium Chloride 0.45%) 1,015 ml @ 75 mls /hr 1X ONCE IV Last administered on 08/25/16 10:55; Start 08/25/16 at 11:00; Stop 08/26/16 at 00:31; Status DC Insulin Aspart 10 units 10 units 1X ONCE SQ Last administered on 08/25/16 12: 42; Start 08/25/16 at 12:45; Stop 08/25/16 at 12:46; Status DC Vancomycin HCl/ Sodium Chloride (Iv Sodium Chloride 0.9% 250ml) 250 ml @ 250 mls/hr Q18H IV Last administered on 08/26/16 06:39; Start 08/25/16 at 13:00; Stop 08/26/16 at 08:18; Status DC Insulin Aspart 0-9 UNITS Q6HRS SQ Last administered on 08/27/16 12:03; Start at 00:00 Levofloxacin/ Dextrose 100 ml @ 100 mls/hr 1X ONCE IV Last administered on 09:28; Start 08/26/16 at 09:30; Stop 08/26/16 at 10:29; Status DC Potassium Chloride/Sodium Chloride (Iv Sodium Chloride 0.45%) 1,015 ml @ 75 mls /hr 1X ONCE IV Last administered on 08/26/16 15:23; Start 08/26/16 at 11:00; Stop 08/27/16 at 00:31; Status DC Hydrocortisone Sodium Succinate 100 mg 100 mg BID IV Last administered on 08:10; Start 08/27/16 at 09:00 Amino Acids/ Glycerin/ Electrolytes 1,000 ml @ 80 mls/hr [id number] IV ; Start 08/27/16 at 12:15; Status UNV Potassium Chloride (KCl Premix 20meq) 50 ml @ 50 mls/hr 1X ONCE IV ; Start 08/27 at 12:30; Stop 08/27/16 at 13:29; Status UNV Active Scripts Active Reported Milk Of Magnesia (Magnesium Hydroxide) 2,400 Mg/10 Ml Oral.susp 2,400 Mg PO DAILY PRN Dulcolax (Bisacodyl) 10 Mg Supp.rect 10 Mg RC PRN DAILY PRN Aspirin 325 Mg Tablet 1 Tab PEG DAILY Tylenol (Acetaminophen) 325 Mg Tablet 2 Tab PO PRN Q6HRS PRN Vitamin B Complex 1 Each Tablet 1 Tab PO DAILY Vitamin D3 (Cholecalciferol (Vitamin D3)) 1,000 Unit Tablet 2,000 Unit PO DAILY Keppra (Levetiracetam) 500 Mg Tablet 500 Mg PO BID Vitals/I & O Vital Sign - Last 24 Hours 08/26/16 08/26/16 08/26/16 08/26/16 13:00 13:21 14:00 15:00 Pulse 81 80 80 Resp 10 10 11 B/P 138/91 118/88 102/79 Pulse Ox 100 100 100 100 O2 Delivery Ventilator Ventilator Ventilator Ventilator 08/26/16 08/26/16 08/26/16 08/26/16 16:00 16:00 16:00 17:00 Temp 98.9 98.9 Pulse 83 81 Resp 8 15 B/P 107/82 105/76 Pulse Ox 100 100 100 O2 Delivery Ventilator Mechanical Ventilator Ventilator Ventilator 08/26/16 08/26/16 08/26/16 08/26/16 18:00 19:00 20:00 20:04 Temp 97.8 97.8 Pulse 83 82 90 Resp 11 11 12 B/P 100/69 92/62 119/77 Pulse Ox 100 100 100 100 O2 Delivery Ventilator Ventilator Ventilator Ventilator 08/26/16 08/26/16 08/26/16 08/26/16 20:30 21:00 22:00 22:07 Pulse 86 84 Resp 12 10 B/P 114/72 103/74 Pulse Ox 100 100 100 O2 Delivery Mechanical Ventilator Ventilator Ventilator Ventilator 08/26/16 08/26/16 08/26/16 08/26/16 23:00 23:25 23:59 23:59 Temp 97.9 97.9 Pulse 90 79 Resp 10 10 B/P 86/65 119/78 Pulse Ox 100 100 100 O2 Delivery Ventilator Ventilator Ventilator Mechanical Ventilator 08/27/16 08/27/16 08/27/16 08/27/16 01:00 01:13 02:00 02:15 Pulse 79 82 80 Resp 10 12 12 B/P 129/80 140/95 120/79 Pulse Ox 100 100 100 100 O2 Delivery Ventilator Ventilator Ventilator Ventilator 3/3/08/27/16 08/27/16 08/27/16 02:30 02:45 03:00 03:05 Pulse 90 87 Resp 14 10 10 B/P 103/79 91/64 87/63 Pulse Ox 100 100 100 100 O2 Delivery Ventilator Ventilator Ventilator Ventilator 08/27/16 08/27/16 08/27/16 08/27/16 04:00 04:00 05:00 05:10 Temp 98.2 98.2 Pulse 90 85 Resp 10 10 B/P 109/79 96/66 Pulse Ox 100 100 100 O2 Delivery Mechanical Ventilator Ventilator Ventilator Ventilator 08/27/16 08/27/16 08/27/16 08/27/16 06:00 07:00 08:00 08:00 Temp 97.9 97.9 Pulse 83 87 87 Resp 10 10 9 B/P 114/84 103/74 90/67 Pulse Ox 100 100 100 O2 Delivery Ventilator Ventilator Ventilator Mechanical Ventilator 08/27/16 08/27/16 08/27/16 08/27/16 09:00 09:18 10:00 11:00 Pulse 83 80 85 Resp 11 9 9 B/P 114/79 124/94 86/65 Pulse Ox 100 100 100 100 O2 Delivery Ventilator Ventilator Ventilator Ventilator 08/27/16 12:07 Pulse Ox 100 O2 Delivery Ventilator Intake and Output 08/26/16 08/26/16 08/27/16 15:00 23:00 07:00 Intake Total 370 ml 512.9 ml 458 ml Output Total 385 ml 450 ml 680 ml Balance -15 ml 62.9 ml -222 ml JAMEE GUZMAN III DO Aug 27, 2016 12:22
[2016-08-27] MEDS ORDERED: POTASSIUM CHLORIDE 20MEQ 50 ML IV ONE (12:30)
--- NOTE | 2016-08-27 13:26 | PDOC ---
Objective: Objective: Per RN - starting to wake up a little more today, blinking w/ oral care, etc. No output from PEG overnight but + after turning this morning. Plans to start PPN. Vital Signs: Vital Signs Date Time Temp Pulse Resp B/P Pulse Ox O2 Delivery O2 Flow Rate FiO2 08/27/16 12:07 100 Ventilator 08/27/16 12:00 97.3 85 8 101/74 97.3 Labs: Laboratory Tests Test 08/26/16 18:28 08/27/16 00:24 08/27/16 05:44 08/27/16 05:45 Glucose (Fingerstick) 230mg/dL 217mg/dL 221mg/dL Sodium Level 145mmol/L Potassium Level 3.3mmol/L Chloride Level 106mmol/L Carbon Dioxide Level 33mmol/L Anion Gap 6 Blood Urea Nitrogen 25mg/dL Creatinine 1.1mg/dL Estimated GFR (Cockcroft-Gault) 84.1 Glucose Level 251mg/dL Calcium Level 7.7mg/dL Test 08/27/16 08:00 08/27/16 10:12 08/27/16 11:59 O2 Saturation 98% Arterial Blood pH 7.50 Arterial Blood pCO2 at Patient Temp 40mmHg Arterial Blood pO2 at Patient Temp 129mmHg Arterial Blood HCO3 30mmol/L Arterial Blood Base Excess 6mmol/L FiO2 40 White Blood Count 18.9x10^3/uL Red Blood Count 2.30x10^6/uL Hemoglobin 7.7g/dL Hematocrit 23.2% Mean Corpuscular Volume 101fL Mean Corpuscular Hemoglobin 34pg Mean Corpuscular Hemoglobin Concent 33g/dL Red Cell Distribution Width 14.2% Platelet Count 78x10^3/uL Glucose (Fingerstick) 210mg/dL Imaging: [facility] 08/26/16 IMPRESSION: 1. No acute abdominal abnormality is detected. 2. Ongoing basilar pulmonary infiltrates. PE: GEN: intubated LUNGS: vent HEART: S1S2 ABD: BS quiet, soft, PEG to drainage with what looks like tube feeds NEURO/PSYCH: doesn't respond to me A/P: Resp failure, sepsis, lactic acidosis -intubated in ICU PEG in place -increased residuals w/ feeding - held 08/26, PEG to gravity w/ some drainage today, KUB unrevealing -- Note plans for PPN. Will discuss next step w/ Dr. Johnson. LUCIO YODER Aug 27, 2016 13:26
--- NOTE | 2016-08-27 15:02 | PDOC ---
PULMONARY PROGRESS NOTES Subjective off sedation and levo Vitals Vital Signs Date Time Temp Pulse Resp B/P Pulse Ox O2 Delivery O2 Flow Rate FiO2 08/27/16 14:10 100 Ventilator 08/27/16 14:00 92 14 97/67 08/27/16 12:00 97.3 97.3 Lungs: Clear Cardiovascular: S1, S2 Abdomen: Soft Extremities: Other (some edema) Skin: Warm Labs Laboratory Tests Test 08/25/16 17:20 08/26/16 00:11 08/26/16 05:40 08/26/16 05:45 Glucose (Fingerstick) 249mg/dL (70-99) 176mg/dL (70-99) 266mg/dL (70-99) White Blood Count 12.5x10^3/uL (4.0-11.0) Red Blood Count 2.17x10^6/uL (4.30-5.70) Hemoglobin 7.4g/dL (13.0-17.5) Hematocrit 21.6% (39.0-53.0) Mean Corpuscular Volume 100fL (79-100) Mean Corpuscular Hemoglobin 34pg (25-35) Mean Corpuscular Hemoglobin Concent 34g/dL (31-37) Red Cell Distribution Width 13.9% (11.5-14.5) Platelet Count 80x10^3/uL (140-400) Neutrophils (%) (Auto) 88% (31-73) Lymphocytes (%) (Auto) 9% (24-48) Monocytes (%) (Auto) 3% (0-9) Eosinophils (%) (Auto) 0% (0-3) Basophils (%) (Auto) 1% (0-3) Neutrophils # (Auto) 10.9x10^3uL (1.8-7.7) Lymphocytes # (Auto) 1.1x10^3/uL (1.0-4.8) Monocytes # (Auto) 0.3x10^3/uL (0.0-1.1) Eosinophils # (Auto) 0.0x10^3/uL (0.0-0.7) Basophils # (Auto) 0.1x10^3/uL (0.0-0.2) Sodium Level 145mmol/L (136-145) Potassium Level 3.1mmol/L (3.5-5.1) Chloride Level 105mmol/L (98-107) Carbon Dioxide Level 32mmol/L (21-32) Anion Gap 8 (6-14) Blood Urea Nitrogen 24mg/dL (8-26) Creatinine 1.2mg/dL (0.7-1.3) Estimated GFR (Cockcroft-Gault) 76.1 Glucose Level 278mg/dL (70-99) Lactic Acid Level 3.4mmol/L (0.4-2.0) Calcium Level 7.2mg/dL (8.5-10.1) Test 08/26/16 08:45 08/26/16 12:16 08/26/16 18:28 08/27/16 00:24 O2 Saturation % (92-99) Arterial Blood pH 7.59 (7.35-7.45) Arterial Blood pCO2 at Patient Temp 34mmHg (35-46) Arterial Blood pO2 at Patient Temp 135mmHg (75-108) Arterial Blood HCO3 32mmol/L (21-28) Arterial Blood Base Excess 10mmol/L (-3-3) FiO2 40 Glucose (Fingerstick) 204mg/dL (70-99) 230mg/dL (70-99) 217mg/dL (70-99) Test 08/27/16 05:44 08/27/16 05:45 08/27/16 08:00 08/27/16 10:12 Glucose (Fingerstick) 221mg/dL (70-99) Sodium Level 145mmol/L (136-145) Potassium Level 3.3mmol/L (3.5-5.1) Chloride Level 106mmol/L (98-107) Carbon Dioxide Level 33mmol/L (21-32) Anion Gap 6 (6-14) Blood Urea Nitrogen 25mg/dL (8-26) Creatinine 1.1mg/dL (0.7-1.3) Estimated GFR (Cockcroft-Gault) 84.1 Glucose Level 251mg/dL (70-99) Calcium Level 7.7mg/dL (8.5-10.1) O2 Saturation 98% (92-99) Arterial Blood pH 7.50 (7.35-7.45) Arterial Blood pCO2 at Patient Temp 40mmHg (35-46) Arterial Blood pO2 at Patient Temp 129mmHg (75-108) Arterial Blood HCO3 30mmol/L (21-28) Arterial Blood Base Excess 6mmol/L (-3-3) FiO2 40 White Blood Count 18.9x10^3/uL (4.0-11.0) Red Blood Count 2.30x10^6/uL (4.30-5.70) Hemoglobin 7.7g/dL (13.0-17.5) Hematocrit 23.2% (39.0-53.0) Mean Corpuscular Volume 101fL (79-100) Mean Corpuscular Hemoglobin 34pg (25-35) Mean Corpuscular Hemoglobin Concent 33g/dL (31-37) Red Cell Distribution Width 14.2% (11.5-14.5) Platelet Count 78x10^3/uL (140-400) Test 08/27/16 11:59 Glucose (Fingerstick) 210mg/dL (70-99) Laboratory Tests Test 08/26/16 18:28 08/27/16 00:24 08/27/16 05:44 08/27/16 05:45 Glucose (Fingerstick) 230mg/dL (70-99) 217mg/dL (70-99) 221mg/dL (70-99) Sodium Level 145mmol/L (136-145) Potassium Level 3.3mmol/L (3.5-5.1) Chloride Level 106mmol/L (98-107) Carbon Dioxide Level 33mmol/L (21-32) Anion Gap 6 (6-14) Blood Urea Nitrogen 25mg/dL (8-26) Creatinine 1.1mg/dL (0.7-1.3) Estimated GFR (Cockcroft-Gault) 84.1 Glucose Level 251mg/dL (70-99) Calcium Level 7.7mg/dL (8.5-10.1) Test 08/27/16 08:00 08/27/16 10:12 08/27/16 11:59 O2 Saturation 98% (92-99) Arterial Blood pH 7.50 (7.35-7.45) Arterial Blood pCO2 at Patient Temp 40mmHg (35-46) Arterial Blood pO2 at Patient Temp 129mmHg (75-108) Arterial Blood HCO3 30mmol/L (21-28) Arterial Blood Base Excess 6mmol/L (-3-3) FiO2 40 White Blood Count 18.9x10^3/uL (4.0-11.0) Red Blood Count 2.30x10^6/uL (4.30-5.70) Hemoglobin 7.7g/dL (13.0-17.5) Hematocrit 23.2% (39.0-53.0) Mean Corpuscular Volume 101fL (79-100) Mean Corpuscular Hemoglobin 34pg (25-35) Mean Corpuscular Hemoglobin Concent 33g/dL (31-37) Red Cell Distribution Width 14.2% (11.5-14.5) Platelet Count 78x10^3/uL (140-400) Glucose (Fingerstick) 210mg/dL (70-99) Medications Active Scripts Medications Dose Route/Sig Days Date Category Milk Of Magnesia (Magnesium Hydroxide) 2,400 Mg/10 Ml Oral.susp 2,400 Mg PO DAILY PRN 08/21/15 Reported Dulcolax (Bisacodyl) 10 Mg Supp.rect 10 Mg RC PRN DAILY PRN 08/21/15 Reported Aspirin 325 Mg Tablet 1 Tab PEG DAILY 08/02/15 Reported Tylenol (Acetaminophen) 325 Mg Tablet 2 Tab PO PRN Q6HRS PRN 08/02/15 Reported Vitamin B Complex 1 Each Tablet 1 Tab PO DAILY 07/25/15 Reported Vitamin D3 (Cholecalciferol (Vitamin D3)) 1,000 Unit Tablet 2,000 Unit PO DAILY 07/25/15 Reported Keppra (Levetiracetam) 500 Mg Tablet 500 Mg PO BID 07/25/15 Reported Impression . IMPRESSION: 1. Acute hypoxic respiratory failure secondary septic shock 2. Septic shock cultures so far negative 3. Abnormal chest x-ray with initial x-ray showing infiltrate 4. Acute severe metabolic acidosis with severe lactic acidosis secondary to sepsis/septic shock. MAHAD contributing to metabolic acidosis, improved 5. Hematuria 6. Urinary tract infection. 7. Coagulopathy, most likely related to early disseminated intravascular coagulation. 8. Underlying Down's syndrome 9. Dysphagia S/P PEG Plan . hold sedation, seem to be awaking will trial once awake not tolerating tube feeding will start PPN d/c levo decrease VT decrease steroids ERINN HORN MD Aug 27, 2016 15:02
[2016-08-27] MEDS: AA 4.25%/CALCIUM/LYTES/D5W 1,000 ML IV SCH (15:27)
[2016-08-28] VITALS (24 sets, daily range): BP systolic 86–135; BP diastolic 48–95
[2016-08-28] MEDS: IV 1/2 NORMAL SALINE 1,000 ML IV SCH ×3 (02:04→22:21)
[2016-08-28] MEDS: AA 4.25%/CALCIUM/LYTES/D5W 1,000 ML IV SCH ×2 (03:47→17:43)
[2016-08-28] MEDS: PIPERACILLIN/TAZOBACTAM 3.375 GM in IV NORMAL SALINE 50ML 50 ML IV SCH ×3 (05:48→17:43)
[2016-08-28] MEDS: INSULIN ASPART 300 UNITS/3 ML INSULN.PEN SQ SCH ×3 (06:00→17:48)
[2016-08-28 06:16] LABS: CALCIUM 7.1 mg/dL (8.5-10.1); GFR 93.9; POTASSIUM 3.6 mmol/L (3.5-5.1)
[2016-08-28] MEDS ORDERED: INSULIN ASPART 300 UNITS/3 ML INSULN.PEN SQ ONE (07:15)
[2016-08-28] MEDS: PANTOPRAZOLE IV PUSH 40 MG VIAL. IVP SCH (07:31)
[2016-08-28 07:38] LABS: BASO # 0.1 x10^3/uL (0.0-0.2); BASO % 1 % (0-3); EOS % 1 % (0-3); HEMOGLOBIN 7.3 g/dL (13.0-17.5); LYMPH # 1.6 x10^3/uL (1.0-4.8); LYMPH % 10 % (24-48); MEAN CORPUSCULAR HEMOGLOBIN 34 pg (25-35); MEAN CORPUSCULAR HGB CONC 33 g/dL (31-37); MEAN CORPUSCULAR VOLUME 102 fL (79-100); MONO % 2 % (0-9); NEUT % 87 % (31-73); PLATELET COUNT 77 x10^3/uL (140-400); RED BLOOD COUNT 2.16 x10^6/uL (4.30-5.70); RED CELL DISTRIBUTION WIDTH 14.2 % (11.5-14.5); WHITE BLOOD COUNT 15.7 x10^3/uL (4.0-11.0)
[2016-08-28] MEDS: IPRATRPIUM/ALBUTEROL 0.5/2.5MG 3 ML NEBU. NEB SCH ×3 (07:47→15:25)
[2016-08-28] MEDS: LEVOTHYROXINE SODIUM 50 MCG in IV NORMAL SALINE 50ML 5 ML IVP SCH (08:33)
[2016-08-28] MEDS: CHLORHEXIDINE 0.12% 15 ML MOUTHWASH. MM SCH ×2 (08:33→21:27)
[2016-08-28] MEDS: VITAMIN B COMPLEX TABLET. PO SCH (08:34)
[2016-08-28] MEDS: LEVETIRACETAM 500 MG in IV NORMAL SALINE 100ML 100 ML IV SCH ×2 (08:34→21:27)
[2016-08-28] MEDS: CHOLECALCIFEROL (VITAMIN D3) 1,000 UNIT TABLET PO SCH (08:35)
[2016-08-28] MEDS: ASPIRIN 325 MG TABLET PEG SCH (08:37)
[2016-08-28] MEDS: HYDROCORTISONE SOD SUCC/PF 100 MG/2 ML VIAL. IV SCH ×2 (08:37→21:27)
--- NOTE | 2016-08-28 09:09 | PDOC ---
Infectious Disease Note Subjective Subjective Off sedation Off pressors Remains intubated. FiO2 40% G-tube to dependent drainage. Low-grade fever. 100.2 ROS ROS Unobtainable Vital Sign Vital Signs Vital Signs Date Time Temp Pulse Resp B/P Pulse Ox O2 Delivery O2 Flow Rate FiO2 08/28/16 07:48 100 Ventilator 08/28/16 06:00 98 10 113/79 08/28/16 04:00 100.2 100.2 Physical Exam PHYSICAL EXAM GENERAL: Alert, NAD HEENT: Cataracts. ETT. Oral cavity pink, dry LUNGS: Clear HEART: S1S2, regular ABD: Round, BS present, soft, no grimace to palpation. G-tube intact EXT: Trace edema. RECRUITER COORDINATOR: Alert, unresponsive to verbal stimuli SKIN: No rash LUE-PICC. clean Labs Lab Laboratory Tests Test 08/27/16 10:12 08/27/16 11:59 08/27/16 17:32 08/27/16 23:54 White Blood Count 18.9x10^3/uL (4.0-11.0) Red Blood Count 2.30x10^6/uL (4.30-5.70) Hemoglobin 7.7g/dL (13.0-17.5) Hematocrit 23.2% (39.0-53.0) Mean Corpuscular Volume 101fL (79-100) Mean Corpuscular Hemoglobin 34pg (25-35) Mean Corpuscular Hemoglobin Concent 33g/dL (31-37) Red Cell Distribution Width 14.2% (11.5-14.5) Platelet Count 78x10^3/uL (140-400) Glucose (Fingerstick) 210mg/dL (70-99) 235mg/dL (70-99) 282mg/dL (70-99) Test 08/28/16 05:30 08/28/16 05:44 White Blood Count 15.7x10^3/uL (4.0-11.0) Red Blood Count 2.16x10^6/uL (4.30-5.70) Hemoglobin 7.3g/dL (13.0-17.5) Hematocrit 22.0% (39.0-53.0) Mean Corpuscular Volume 102fL (79-100) Mean Corpuscular Hemoglobin 34pg (25-35) Mean Corpuscular Hemoglobin Concent 33g/dL (31-37) Red Cell Distribution Width 14.2% (11.5-14.5) Platelet Count 77x10^3/uL (140-400) Neutrophils (%) (Auto) 87% (31-73) Lymphocytes (%) (Auto) 10% (24-48) Monocytes (%) (Auto) 2% (0-9) Eosinophils (%) (Auto) 1% (0-3) Basophils (%) (Auto) 1% (0-3) Neutrophils # (Auto) 13.6x10^3uL (1.8-7.7) Lymphocytes # (Auto) 1.6x10^3/uL (1.0-4.8) Monocytes # (Auto) 0.4x10^3/uL (0.0-1.1) Eosinophils # (Auto) 0.1x10^3/uL (0.0-0.7) Basophils # (Auto) 0.1x10^3/uL (0.0-0.2) Sodium Level 143mmol/L (136-145) Potassium Level 3.6mmol/L (3.5-5.1) Chloride Level 106mmol/L (98-107) Carbon Dioxide Level 32mmol/L (21-32) Anion Gap 5 (6-14) Blood Urea Nitrogen 26mg/dL (8-26) Creatinine 1.0mg/dL (0.7-1.3) Estimated GFR (Cockcroft-Gault) 93.9 Glucose Level 375mg/dL (70-99) Calcium Level 7.1mg/dL (8.5-10.1) Glucose (Fingerstick) 360mg/dL (70-99) Micro BLOOD CULTURE Preliminary NO GROWTH AFTER 4 DAYS Objective Assessment Severe Sepsis - improved Hyperglycemia -improved ? early DIC vs sepsis with thrombocytopenia and coagulopathy - stable Hydronephrosis on U/S - May need nephrostomy tubes per urology Acute Resp failure - intubated Lactic acidosis MAHAD with h/o hydronephrosis -better + BM Bandemia/leukocytosis - on Hydrocortisone Hematuria - improved UTI - Proteus H/o granulomas Plan Plan of Care Cont Zosyn F/u labs in am Needs CT chest/abd/pelvis when stable Critically ill Attending Co-Sign The patient was seen and interviewed as well as examined at the bedside. The chart was reviewed. The case was discussed. Agree with the plan of care. JESSI AGOSTO APRN Aug 28, 2016 09:09 UNRULY MEDNOZA MD Aug 28, 2016 14:20
[2016-08-28 09:32] LABS: ANISOCYTOSIS SLIGHT; HYPOCHROMIA SLIGHT; NUCLEATED RBC 5; PLT ESTIMATE DECREASED (ADEQUATE)
[2016-08-28 09:33] LABS: POLYCHROMASIA SLIGHT
[2016-08-28 09:54] LABS: HCO3 ABG 32 mmol/L (21-28); PCO2 ABG 44 mmHg (35-46); PH ABG 7.48 (7.35-7.45); PO2 ABG 103 mmHg (75-108); SAT O2 ABG 98 % (92-99)
[2016-08-28 10:02] LABS: FIO2 ABG 40
--- NOTE | 2016-08-28 10:36 | PDOC ---
G I PROGRESS NOTE Subjective On ventilator. Not responsive. Objective Staff have been irrigating G-tube/given meds this route. Physical Exam Lungs clear. RRR Abdomen soft, not distended. Bile/tube feeding in G-tube. Can't hear any bowel sounds. Review of Relevant I have reviewed the following items kassie (where applicable) has been applied. Labs Laboratory Tests Test 08/26/16 12:16 08/26/16 18:28 08/27/16 00:24 08/27/16 05:44 Glucose (Fingerstick) 204mg/dL (70-99) 230mg/dL (70-99) 217mg/dL (70-99) 221mg/dL (70-99) Test 08/27/16 05:45 08/27/16 08:00 08/27/16 10:12 08/27/16 11:59 Sodium Level 145mmol/L (136-145) Potassium Level 3.3mmol/L (3.5-5.1) Chloride Level 106mmol/L (98-107) Carbon Dioxide Level 33mmol/L (21-32) Anion Gap 6 (6-14) Blood Urea Nitrogen 25mg/dL (8-26) Creatinine 1.1mg/dL (0.7-1.3) Estimated GFR (Cockcroft-Gault) 84.1 Glucose Level 251mg/dL (70-99) Calcium Level 7.7mg/dL (8.5-10.1) O2 Saturation 98% (92-99) Arterial Blood pH 7.50 (7.35-7.45) Arterial Blood pCO2 at Patient Temp 40mmHg (35-46) Arterial Blood pO2 at Patient Temp 129mmHg (75-108) Arterial Blood HCO3 30mmol/L (21-28) Arterial Blood Base Excess 6mmol/L (-3-3) FiO2 40 White Blood Count 18.9x10^3/uL (4.0-11.0) Red Blood Count 2.30x10^6/uL (4.30-5.70) Hemoglobin 7.7g/dL (13.0-17.5) Hematocrit 23.2% (39.0-53.0) Mean Corpuscular Volume 101fL (79-100) Mean Corpuscular Hemoglobin 34pg (25-35) Mean Corpuscular Hemoglobin Concent 33g/dL (31-37) Red Cell Distribution Width 14.2% (11.5-14.5) Platelet Count 78x10^3/uL (140-400) Glucose (Fingerstick) 210mg/dL (70-99) Test 08/27/16 17:32 08/27/16 23:54 08/28/16 05:30 08/28/16 05:44 Glucose (Fingerstick) 235mg/dL (70-99) 282mg/dL (70-99) 360mg/dL (70-99) White Blood Count 15.7x10^3/uL (4.0-11.0) Red Blood Count 2.16x10^6/uL (4.30-5.70) Hemoglobin 7.3g/dL (13.0-17.5) Hematocrit 22.0% (39.0-53.0) Mean Corpuscular Volume 102fL (79-100) Mean Corpuscular Hemoglobin 34pg (25-35) Mean Corpuscular Hemoglobin Concent 33g/dL (31-37) Red Cell Distribution Width 14.2% (11.5-14.5) Platelet Count 77x10^3/uL (140-400) Neutrophils (%) (Auto) 87% (31-73) Lymphocytes (%) (Auto) 10% (24-48) Monocytes (%) (Auto) 2% (0-9) Eosinophils (%) (Auto) 1% (0-3) Basophils (%) (Auto) 1% (0-3) Neutrophils # (Auto) 13.6x10^3uL (1.8-7.7) Lymphocytes # (Auto) 1.6x10^3/uL (1.0-4.8) Monocytes # (Auto) 0.4x10^3/uL (0.0-1.1) Eosinophils # (Auto) 0.1x10^3/uL (0.0-0.7) Basophils # (Auto) 0.1x10^3/uL (0.0-0.2) Segmented Neutrophils % 60% (35-66) Band Neutrophils % 29% (0-9) Lymphocytes % 3% (24-48) Monocytes % 1% (0-10) Metamyelocytes % 3% (0-0) Myelocytes % 4% (0-0) Nucleated Red Blood Cells 5 Platelet Estimate Decreased (ADEQUATE) Polychromasia Slight Hypochromasia Slight Anisocytosis Slight Sodium Level 143mmol/L (136-145) Potassium Level 3.6mmol/L (3.5-5.1) Chloride Level 106mmol/L (98-107) Carbon Dioxide Level 32mmol/L (21-32) Anion Gap 5 (6-14) Blood Urea Nitrogen 26mg/dL (8-26) Creatinine 1.0mg/dL (0.7-1.3) Estimated GFR (Cockcroft-Gault) 93.9 Glucose Level 375mg/dL (70-99) Calcium Level 7.1mg/dL (8.5-10.1) Test 08/28/16 08:00 O2 Saturation 98% (92-99) Arterial Blood pH 7.48 (7.35-7.45) Arterial Blood pCO2 at Patient Temp 44mmHg (35-46) Arterial Blood pO2 at Patient Temp 103mmHg (75-108) Arterial Blood HCO3 32mmol/L (21-28) Arterial Blood Base Excess 7mmol/L (-3-3) FiO2 40 Laboratory Tests Test 08/27/16 11:59 08/27/16 17:32 08/27/16 23:54 08/28/16 05:30 Glucose (Fingerstick) 210mg/dL (70-99) 235mg/dL (70-99) 282mg/dL (70-99) White Blood Count 15.7x10^3/uL (4.0-11.0) Red Blood Count 2.16x10^6/uL (4.30-5.70) Hemoglobin 7.3g/dL (13.0-17.5) Hematocrit 22.0% (39.0-53.0) Mean Corpuscular Volume 102fL (79-100) Mean Corpuscular Hemoglobin 34pg (25-35) Mean Corpuscular Hemoglobin Concent 33g/dL (31-37) Red Cell Distribution Width 14.2% (11.5-14.5) Platelet Count 77x10^3/uL (140-400) Neutrophils (%) (Auto) 87% (31-73) Lymphocytes (%) (Auto) 10% (24-48) Monocytes (%) (Auto) 2% (0-9) Eosinophils (%) (Auto) 1% (0-3) Basophils (%) (Auto) 1% (0-3) Neutrophils # (Auto) 13.6x10^3uL (1.8-7.7) Lymphocytes # (Auto) 1.6x10^3/uL (1.0-4.8) Monocytes # (Auto) 0.4x10^3/uL (0.0-1.1) Eosinophils # (Auto) 0.1x10^3/uL (0.0-0.7) Basophils # (Auto) 0.1x10^3/uL (0.0-0.2) Segmented Neutrophils % 60% (35-66) Band Neutrophils % 29% (0-9) Lymphocytes % 3% (24-48) Monocytes % 1% (0-10) Metamyelocytes % 3% (0-0) Myelocytes % 4% (0-0) Nucleated Red Blood Cells 5 Platelet Estimate Decreased (ADEQUATE) Polychromasia Slight Hypochromasia Slight Anisocytosis Slight Sodium Level 143mmol/L (136-145) Potassium Level 3.6mmol/L (3.5-5.1) Chloride Level 106mmol/L (98-107) Carbon Dioxide Level 32mmol/L (21-32) Anion Gap 5 (6-14) Blood Urea Nitrogen 26mg/dL (8-26) Creatinine 1.0mg/dL (0.7-1.3) Estimated GFR (Cockcroft-Gault) 93.9 Glucose Level 375mg/dL (70-99) Calcium Level 7.1mg/dL (8.5-10.1) Test 08/28/16 05:44 08/28/16 08:00 Glucose (Fingerstick) 360mg/dL (70-99) O2 Saturation 98% (92-99) Arterial Blood pH 7.48 (7.35-7.45) Arterial Blood pCO2 at Patient Temp 44mmHg (35-46) Arterial Blood pO2 at Patient Temp 103mmHg (75-108) Arterial Blood HCO3 32mmol/L (21-28) Arterial Blood Base Excess 7mmol/L (-3-3) FiO2 40 Microbiology 08/23/16 Blood Culture - Preliminary, Resulted NO GROWTH AFTER 4 DAYS 08/23/16 Urine Culture - Final, Complete 08/23/16 Urine Culture Result 1 (SHANON) - Final, Complete 08/23/16 Antimicrobic Susceptibility - Final, Complete Medications Current Medications Sodium Chloride 1,000 ml @ 1,000 mls/hr 1X ONCE IV Last administered on 11:16; Start 08/23/16 at 11:15; Stop 08/23/16 at 12:14; Status DC Sodium Chloride (Iv Sodium Chloride 0.9% 1000ml Bag) 1,000 ml @ 1,000 mls/hr 1X ONCE IV Last administered on 08/23/16 11:30; Start 08/23/16 at 11:30; Stop 08/23/16 at 12:29; Status DC Vancomycin HCl (Vanco Per Pharmacy) 1 each PRN DAILY PRN MC SEE COMMENTS Last administered on 08/25/16 13:04; Start 08/23/16 at 11:30; Stop 08/26/16 at 08:18; Status DC Piperacillin Sod/ Tazobactam Sod 1 each 1 each PRN DAILY PRN MC SEE COMMENTS; Start 08/23/16 at 11:30; Stop 08/25/16 at 09:54; Status DC Levofloxacin/ Dextrose 100 ml @ 100 mls/hr 1X ONCE IV Last administered on 12:58; Start 08/23/16 at 11:30; Stop 08/23/16 at 12:29; Status DC Piperacillin Sod/ Tazobactam Sod 4.5 gm/Sodium Chloride 100 ml @ 200 mls/hr 1X ONCE IV Last administered on 08/23/16 12:00; Start 08/23/16 at 12:00; Stop 08/23/16 at 12:29; Status DC Vancomycin HCl 1.5 gm/Sodium Chloride 500 ml @ 250 mls/hr 1X ONCE IV Last administered on 08/23/16 12:30; Start 08/23/16 at 12:30; Stop 08/23/16 at 14:29 ; Status DC Sodium Chloride 1,000 ml @ 1,000 mls/hr 1X ONCE IV Last administered on 12:46; Start 08/23/16 at 12:30; Stop 08/23/16 at 13:29; Status DC Piperacillin Sod/ Tazobactam Sod 3.375 gm/Sodium Chloride 50 ml @ 100 mls/hr Q6HRS IV Last administered on 08/28/16 05:48; Start 08/23/16 at 18:00 Vancomycin HCl/ Sodium Chloride (Iv Sodium Chloride 0.9% 250ml) 250 ml @ 250 mls/hr Q24H IV ; Start 08/24/16 at 13:00; Status Cancel Vancomycin HCl 1 each 1X ONCE MC ; Start 08/25/16 at 12:30; Stop 08/25/16 at 12: 31; Status DC Labetalol HCl (Normodyne) 10 mg PRN Q2HR PRN IVP HYPERTENSION, SEE COMMENTS; Start 08/23/16 at 15:45 Aspirin (ModuleQ Aspirin) 325 mg DAILY PEG Last administered on 08/26/16 09:29; Start 08/24/16 at 09:00 Bisacodyl (Dulcolax Supp) 10 mg PRN DAILY PRN RC CONSTIPATION; Start 08/23/16 at 15:45 Vitamin D (Vitamin D3) 2,000 unit DAILY PO Last administered on 08/28/16 08:35 ; Start 08/24/16 at 09:00 Levetiracetam (Keppra) 500 mg BID PO ; Start 08/23/16 at 21:00; Stop 08/23/16 at 21:00; Status DC Vitamin B Complex (Hector B) 1 tab DAILY PO Last administered on 08/28/16 08:34; Start 08/24/16 at 09:00 Magnesium Hydroxide (Milk Of Magnesia) 2,400 mg PRN DAILY PRN PO CONSTIPATION; Start 08/23/16 at 15:45 Acetaminophen 500 mg 500 mg PRN Q6HRS PRN PO MILD PAIN / TEMP; Start 08/23/16 at 15:45 Levetiracetam/ Sodium Chloride (Keppra/Iv Sodium Chloride 0.9% 100ml) 105 ml @ 400 mls/hr Q12HR IV Last administered on 08/28/16 08:34; Start 08/23/16 at 21: 00 Pantoprazole Sodium (Protonix Vial) 40 mg DAILYAC IVP Last administered on 07:31; Start 08/24/16 at 07:30 Heparin Sodium (Porcine) 5000 unit 5,000 unit Q8HRS SQ ; Start 08/23/16 at 22:00 ; Stop 08/23/16 at 22:00; Status DC Sodium Bicarbonate/ Dextrose 1,150 ml @ 150 mls/hr Q7H40M IV Last administered on 08/25/16 08:05; Start 08/23/16 at 16:30; Stop 08/25/16 at 10:35; Status DC Sodium Bicarbonate 50 meq 1X ONCE IV Last administered on 08/23/16 16:24; Start 08/23/16 at 16:15; Stop 08/23/16 at 16:17; Status DC Albuterol/ Ipratropium 3 ml 3 ml RTQID NEB Last administered on 08/28/16 07:47 ; Start 08/23/16 at 20:00 Vancomycin HCl 750 mg/Sodium Chloride 250 ml @ 250 mls/hr Q24H IV Last administered on 08/24/16 12:15; Start 08/24/16 at 13:00; Stop 08/25/16 at 12:55 ; Status DC Norepinephrine Bitartrate 8 mg/ Sodium Chloride 258 ml @ 0 mls/hr CONT PRN IV SEE I/O RECORD Last administered on 08/25/16 00:28; Start 08/23/16 at 18:15 Sodium Chloride (Iv Sodium Chloride 0.9% 1000ml Bag) 1,000 ml @ 500 mls/hr Q2H IV Last administered on 08/23/16 17:00; Start 08/23/16 at 18:30; Stop at 20:29; Status DC Hydrocortisone Sodium Succinate (Solu-Cortef) 100 mg Q8HRS IV Last administered on 08/26/16 14:54; Start 08/23/16 at 22:30; Stop 08/26/16 at 16:49; Status DC Succinylcholine Chloride (Anectine) 200 mg STK-MED ONCE .ROUTE ; Start 08/24/16 at 04:15; Stop 08/24/16 at 04:16; Status DC Etomidate 20 mg 20 mg STK-MED ONCE IV ; Start 08/24/16 at 04:15; Stop 08/24/16 at 04:16; Status DC Fentanyl Citrate (Fentanyl 600 Mcg/30 ml CORRESPONDENCE REPRESENTATIVE) 30 ml @ 0 mls/hr CONT PRN IV PROTOCOL; Start 08/24/16 at 04:45 Fentanyl Citrate (Fentanyl 2ml Vial) 25 mcg PRN Q1HR PRN IV COMM; Start at 04:45 Fentanyl Citrate (Fentanyl 2ml Vial) 50 mcg PRN Q1HR PRN IV COMM; Start at 04:45 Chlorhexidine Gluconate 15 ml 15 ml BID MM Last administered on 08/28/16 08:33 ; Start 08/24/16 at 09:00 Midazolam HCl 100 ml @ 0 mls/hr CONT PRN IV PER PROTOCOL Last administered on 10:50; Start 08/24/16 at 04:45 Midazolam HCl 100 ml @ As Directed STK-MED ONCE IV ; Start 08/24/16 at 04:52; Stop 08/24/16 at 04:53; Status DC Sodium Chloride 1,000 ml @ 150 mls/hr Q6H40M IV Last administered on 06:13; Start 08/24/16 at 05:45; Stop 08/24/16 at 09:59; Status DC Vasopressin 40 unit/Dextrose 102 ml @ 6 mls/hr 1X ONCE IV Last administered on 08/24/16 06:12; Start 08/24/16 at 06:00; Stop 08/24/16 at 20:00; Status DC Phenylephrine HCl 20 mg/Sodium Chloride 252 ml @ 0 mls/hr CONT PRN IV SEE I/O RECORD Last administered on 08/24/16 07:28; Start 08/24/16 at 05:45 Albumin Human 500 ml @ 125 mls/hr 1X ONCE IV Last administered on 08/24/16 06:20; Start 08/24/16 at 05:45; Stop 08/24/16 at 09:44; Status DC Micafungin Sodium 100 mg/Dextrose 100 ml @ 100 mls/hr Q24H IV Last administered on 08/26/16 09:29; Start 08/24/16 at 09:00; Stop 08/27/16 at 07:37; Status DC Epinephrine HCl/ Sodium Chloride (Adrenalin/Iv Sodium Chloride 0.9% 250ml) 254 ml @ 0 mls/hr CONT PRN IV SEE I/O RECORD; Start 08/24/16 at 07:30 Epinephrine HCl (Adrenalin) 30 mg STK-MED ONCE .ROUTE ; Start 08/23/16 at 12:00 ; Stop 08/24/16 at 10:38; Status DC Epinephrine HCl 4 mg STK-MED ONCE .ROUTE ; Start 08/23/16 at 12:00; Stop at 10:38; Status DC Sodium Bicarbonate 100 meq 100 meq STK-MED ONCE .ROUTE ; Start 08/23/16 at 12:00 ; Stop 08/24/16 at 10:38; Status DC Levothyroxine Sodium 50 mcg/ Sodium Chloride 5 ml @ 100 mls/hr DAILY IVP Last administered on 08/28/16 08:33; Start 08/24/16 at 15:00 Phytonadione 10 mg/Sodium Chloride 51 ml @ 102 mls/hr 1X ONCE IV Last administered on 08/24/16 15:14; Start 08/24/16 at 14:30; Stop 08/24/16 at 14:59 ; Status DC Vasopressin/ Dextrose (Vasostrict) 102 ml @ 6 mls/hr CONT PRN IV SEE I/O RECORD Last administered on 08/26/16 05:44; Start 08/24/16 at 18:15 Acetaminophen 650 mg 650 mg PRN Q6HRS PRN PEG MILD PAIN / TEMP Last administered on 08/24/16 20:52; Start 08/24/16 at 20:45 Levofloxacin/ Dextrose (LEVAQUIN 500mg PREMIX) 100 ml @ 100 mls/hr 1X ONCE IV Last administered on 08/25/16 08:06; Start 08/25/16 at 08:00; Stop 08/25/16 at 08:59; Status DC Insulin Aspart (Novolog) 0-9 UNITS TIDWMEALS SQ Last administered on 08/25/16 17:23; Start 08/25/16 at 08:00; Stop 08/25/16 at 19:32; Status DC Dextrose 12.5 gm PRN Q15MIN PRN IV SEE COMMENTS; Start 08/25/16 at 07:30 Insulin Aspart 10 units 10 units 1X ONCE SQ Last administered on 08/25/16 08: 08; Start 08/25/16 at 08:00; Stop 08/25/16 at 08:01; Status DC Sodium Chloride 1,000 ml @ 100 mls/hr Q10H IV Last administered on 08/28/16 02 :04; Start 08/25/16 at 11:00 Potassium Chloride/Sodium Chloride (Iv Sodium Chloride 0.45%) 1,015 ml @ 75 mls /hr 1X ONCE IV Last administered on 08/25/16 10:55; Start 08/25/16 at 11:00; Stop 08/26/16 at 00:31; Status DC Insulin Aspart 10 units 10 units 1X ONCE SQ Last administered on 08/25/16 12: 42; Start 08/25/16 at 12:45; Stop 08/25/16 at 12:46; Status DC Vancomycin HCl/ Sodium Chloride (Iv Sodium Chloride 0.9% 250ml) 250 ml @ 250 mls/hr Q18H IV Last administered on 08/26/16 06:39; Start 08/25/16 at 13:00; Stop 08/26/16 at 08:18; Status DC Insulin Aspart 0-9 UNITS Q6HRS SQ Last administered on 08/27/16 23:59; Start at 00:00 Levofloxacin/ Dextrose 100 ml @ 100 mls/hr 1X ONCE IV Last administered on 09:28; Start 08/26/16 at 09:30; Stop 08/26/16 at 10:29; Status DC Potassium Chloride/Sodium Chloride (Iv Sodium Chloride 0.45%) 1,015 ml @ 75 mls /hr 1X ONCE IV Last administered on 08/26/16 15:23; Start 08/26/16 at 11:00; Stop 08/27/16 at 00:31; Status DC Hydrocortisone Sodium Succinate 100 mg 100 mg BID IV Last administered on 08:37; Start 08/27/16 at 09:00 Amino Acids/ Electrolytes/ Dextrose 1,000 ml @ 80 mls/hr [id number] IV Last administered on 08/28/16 03:47; Start 08/27/16 at 12:30 Potassium Chloride (KCl Premix 20meq) 50 ml @ 50 mls/hr 1X ONCE IV Last administered on 08/27/16 15:29; Start 08/27/16 at 12:30; Stop 08/27/16 at 13:29; Status DC Insulin Aspart (Novolog) 15 units 1X ONCE SQ Last administered on 08/28/16 07: 13; Start 08/28/16 at 07:15; Stop 08/28/16 at 07:16; Status DC Active Scripts Active Reported Milk Of Magnesia (Magnesium Hydroxide) 2,400 Mg/10 Ml Oral.susp 2,400 Mg PO DAILY PRN Dulcolax (Bisacodyl) 10 Mg Supp.rect 10 Mg RC PRN DAILY PRN Aspirin 325 Mg Tablet 1 Tab PEG DAILY Tylenol (Acetaminophen) 325 Mg Tablet 2 Tab PO PRN Q6HRS PRN Vitamin B Complex 1 Each Tablet 1 Tab PO DAILY Vitamin D3 (Cholecalciferol (Vitamin D3)) 1,000 Unit Tablet 2,000 Unit PO DAILY Keppra (Levetiracetam) 500 Mg Tablet 500 Mg PO BID Vitals/I & O Vital Sign - Last 24 Hours 08/27/16 08/27/16 08/27/16 08/27/16 11:00 12:00 12:00 12:07 Temp 97.3 97.3 Pulse 85 85 Resp 9 8 B/P 86/65 101/74 Pulse Ox 100 100 100 O2 Delivery Ventilator Ventilator Mechanical Ventilator Ventilator 08/27/16 08/27/16 08/27/16 08/27/16 13:00 14:00 14:10 15:00 Pulse 87 92 82 Resp 12 14 12 B/P 95/67 97/67 111/86 Pulse Ox 100 100 100 100 O2 Delivery Ventilator Ventilator Ventilator Ventilator 08/27/16 08/27/16 08/27/16 08/27/16 15:50 16:00 16:00 17:00 Temp 97.8 97.8 Pulse 88 93 Resp 8 11 B/P 123/85 129/82 Pulse Ox 100 100 100 O2 Delivery Ventilator Mechanical Ventilator Ventilator Ventilator 08/27/16 08/27/16 08/27/16 08/27/16 18:00 18:06 19:00 20:00 Temp 98.1 98.1 Pulse 93 96 92 Resp 14 16 14 B/P 122/88 113/82 116/80 Pulse Ox 100 100 100 100 O2 Delivery Ventilator Ventilator Ventilator Ventilator 08/27/16 08/27/16 08/27/16 08/27/16 20:00 20:29 21:00 22:00 Pulse 104 102 Resp 15 13 B/P 106/77 119/90 Pulse Ox 100 100 100 O2 Delivery Mechanical Ventilator Ventilator Ventilator Ventilator 08/27/16 08/27/16 08/27/16 08/28/16 22:50 23:00 23:59 00:00 Temp 98.8 98.8 Pulse 94 97 Resp 11 16 B/P 113/80 128/88 Pulse Ox 100 100 100 O2 Delivery Ventilator Ventilator Mechanical Ventilator Ventilator 08/28/16 08/28/16 08/28/16 08/28/16 01:00 01:22 02:00 03:00 Pulse 103 92 93 Resp 15 13 10 B/P 128/88 110/78 106/66 Pulse Ox 100 100 100 100 O2 Delivery Ventilator Ventilator Ventilator Ventilator 08/28/16 08/28/16 08/28/16 08/28/16 04:00 04:00 05:00 05:45 Temp 100.2 100.2 Pulse 102 96 Resp 12 10 B/P 132/87 132/94 Pulse Ox 100 100 100 O2 Delivery Ventilator Mechanical Ventilator Ventilator Ventilator 08/28/16 08/28/16 08/28/16 08/28/16 06:00 07:00 07:48 08:00 Pulse 98 96 Resp 10 12 B/P 113/79 119/86 Pulse Ox 100 96 100 O2 Delivery Ventilator Ventilator Ventilator Mechanical Ventilator O2 Flow Rate 5.0 08/28/16 08/28/16 08:00 09:00 Temp 99.3 99.3 Pulse 100 96 Resp 7 16 B/P 103/71 130/86 Pulse Ox 100 96 O2 Delivery Ventilator Ventilator Intake and Output 08/27/16 08/27/16 08/28/16 15:00 23:00 07:00 Intake Total 2681 ml Output Total 815 ml 1330 ml 1410 ml Balance -815 ml -1330 ml 1271 ml Not much out G-tube, but stools have decreased. Images KUB was not too specific; likely fluid-filled small bowel, so not seen. Problem List Problems Medical Problems: (1) HAP (hospital-acquired pneumonia) Status: Acute (2) Pneumonia Status: Acute Assessment Clinically still with ileus. Plan of Care: Continue current Tx, Mgmt Plan of Care Note Once bowel sounds, try feeding. JOANIE PEDRO MD Aug 28, 2016 10:36
--- NOTE | 2016-08-28 11:26 | PDOC ---
PROGRESS NOTES Chief Complaint Chief Complaint 1. Severe SEPSIS infectious in origin (PNA) with HIGH LACTATE and ORGAN dysfunction (HYPOTENSION) 2. PNEUMONIA, bed bound, gram pos, gram neg, anaerobes, ASPIRATION highly likely 3. BED bound, non verbal, hx down's hx CVA 4. DYsphagia, indwelling PEG 5. OLiguric renal failure 6. MAHAD, vasomotor 7. GAp metabolic acidosis, recent vomiting, severe sepsis 8. hypothyroidism 9. down syndrome History of Present Illness History of Present Illness Patient seen in ICU. On ventilator: Sedation off Eyes open today DW RN Reviewed labs Reviewed Notes AC/ 8; TV 400; 40% FiO2; PEEP 5; Sat 100%. Vitals Vitals Vital Signs Date Time Temp Pulse Resp B/P Pulse Ox O2 Delivery O2 Flow Rate FiO2 08/28/16 10:00 100 14 125/87 100 Ventilator 08/28/16 08:00 99.3 99.3 08/28/16 08:00 5.0 Physical Exam Physical Exam intubated General: Other (SEDATED) Heart: Regular rate Lungs: Clear Abdomen: Normal bowel sounds, Soft Extremities: No clubbing Skin: No breakdown Labs LABS Laboratory Tests Test 08/27/16 11:59 08/27/16 17:32 08/27/16 23:54 08/28/16 05:30 Glucose (Fingerstick) 210mg/dL (70-99) 235mg/dL (70-99) 282mg/dL (70-99) White Blood Count 15.7x10^3/uL (4.0-11.0) Red Blood Count 2.16x10^6/uL (4.30-5.70) Hemoglobin 7.3g/dL (13.0-17.5) Hematocrit 22.0% (39.0-53.0) Mean Corpuscular Volume 102fL (79-100) Mean Corpuscular Hemoglobin 34pg (25-35) Mean Corpuscular Hemoglobin Concent 33g/dL (31-37) Red Cell Distribution Width 14.2% (11.5-14.5) Platelet Count 77x10^3/uL (140-400) Neutrophils (%) (Auto) 87% (31-73) Lymphocytes (%) (Auto) 10% (24-48) Monocytes (%) (Auto) 2% (0-9) Eosinophils (%) (Auto) 1% (0-3) Basophils (%) (Auto) 1% (0-3) Neutrophils # (Auto) 13.6x10^3uL (1.8-7.7) Lymphocytes # (Auto) 1.6x10^3/uL (1.0-4.8) Monocytes # (Auto) 0.4x10^3/uL (0.0-1.1) Eosinophils # (Auto) 0.1x10^3/uL (0.0-0.7) Basophils # (Auto) 0.1x10^3/uL (0.0-0.2) Segmented Neutrophils % 60% (35-66) Band Neutrophils % 29% (0-9) Lymphocytes % 3% (24-48) Monocytes % 1% (0-10) Metamyelocytes % 3% (0-0) Myelocytes % 4% (0-0) Nucleated Red Blood Cells 5 Platelet Estimate Decreased (ADEQUATE) Polychromasia Slight Hypochromasia Slight Anisocytosis Slight Sodium Level 143mmol/L (136-145) Potassium Level 3.6mmol/L (3.5-5.1) Chloride Level 106mmol/L (98-107) Carbon Dioxide Level 32mmol/L (21-32) Anion Gap 5 (6-14) Blood Urea Nitrogen 26mg/dL (8-26) Creatinine 1.0mg/dL (0.7-1.3) Estimated GFR (Cockcroft-Gault) 93.9 Glucose Level 375mg/dL (70-99) Calcium Level 7.1mg/dL (8.5-10.1) Test 08/28/16 05:44 08/28/16 08:00 Glucose (Fingerstick) 360mg/dL (70-99) O2 Saturation 98% (92-99) Arterial Blood pH 7.48 (7.35-7.45) Arterial Blood pCO2 at Patient Temp 44mmHg (35-46) Arterial Blood pO2 at Patient Temp 103mmHg (75-108) Arterial Blood HCO3 32mmol/L (21-28) Arterial Blood Base Excess 7mmol/L (-3-3) FiO2 40 Assessment and Plan Assessmemt and Plan Problems Medical Problems: (1) HAP (hospital-acquired pneumonia) Status: Acute (2) Pneumonia Status: Acute 1. Severe SEPSIS infectious in origin (PNA) with HIGH LACTATE and ORGAN dysfunction (HYPOTENSION) 2. PNEUMONIA, bed bound, gram pos, gram neg, anaerobes, ASPIRATION highly likely 3. BED bound, non verbal, hx down's hx CVA 4. DYsphagia, indwelling PEG 5. OLiguric renal failure 6. MAHAD, vasomotor 7. GAp metabolic acidosis, recent vomiting, severe sepsis 8. hypothyroidism 9. down syndrome Plan Cont to wean off Vent IV fluids IV antibx Recheck labs Home meds Appreciate subspecialist input Total time 31 minutes Prognosis guarded Problems: Comment Review of Relevant I have reviewed the following items kassie (where applicable) has been applied. Labs Laboratory Tests Test 08/26/16 12:16 08/26/16 18:28 08/27/16 00:24 08/27/16 05:44 Glucose (Fingerstick) 204mg/dL (70-99) 230mg/dL (70-99) 217mg/dL (70-99) 221mg/dL (70-99) Test 08/27/16 05:45 08/27/16 08:00 08/27/16 10:12 08/27/16 11:59 Sodium Level 145mmol/L (136-145) Potassium Level 3.3mmol/L (3.5-5.1) Chloride Level 106mmol/L (98-107) Carbon Dioxide Level 33mmol/L (21-32) Anion Gap 6 (6-14) Blood Urea Nitrogen 25mg/dL (8-26) Creatinine 1.1mg/dL (0.7-1.3) Estimated GFR (Cockcroft-Gault) 84.1 Glucose Level 251mg/dL (70-99) Calcium Level 7.7mg/dL (8.5-10.1) O2 Saturation 98% (92-99) Arterial Blood pH 7.50 (7.35-7.45) Arterial Blood pCO2 at Patient Temp 40mmHg (35-46) Arterial Blood pO2 at Patient Temp 129mmHg (75-108) Arterial Blood HCO3 30mmol/L (21-28) Arterial Blood Base Excess 6mmol/L (-3-3) FiO2 40 White Blood Count 18.9x10^3/uL (4.0-11.0) Red Blood Count 2.30x10^6/uL (4.30-5.70) Hemoglobin 7.7g/dL (13.0-17.5) Hematocrit 23.2% (39.0-53.0) Mean Corpuscular Volume 101fL (79-100) Mean Corpuscular Hemoglobin 34pg (25-35) Mean Corpuscular Hemoglobin Concent 33g/dL (31-37) Red Cell Distribution Width 14.2% (11.5-14.5) Platelet Count 78x10^3/uL (140-400) Glucose (Fingerstick) 210mg/dL (70-99) Test 08/27/16 17:32 08/27/16 23:54 08/28/16 05:30 08/28/16 05:44 Glucose (Fingerstick) 235mg/dL (70-99) 282mg/dL (70-99) 360mg/dL (70-99) White Blood Count 15.7x10^3/uL (4.0-11.0) Red Blood Count 2.16x10^6/uL (4.30-5.70) Hemoglobin 7.3g/dL (13.0-17.5) Hematocrit 22.0% (39.0-53.0) Mean Corpuscular Volume 102fL (79-100) Mean Corpuscular Hemoglobin 34pg (25-35) Mean Corpuscular Hemoglobin Concent 33g/dL (31-37) Red Cell Distribution Width 14.2% (11.5-14.5) Platelet Count 77x10^3/uL (140-400) Neutrophils (%) (Auto) 87% (31-73) Lymphocytes (%) (Auto) 10% (24-48) Monocytes (%) (Auto) 2% (0-9) Eosinophils (%) (Auto) 1% (0-3) Basophils (%) (Auto) 1% (0-3) Neutrophils # (Auto) 13.6x10^3uL (1.8-7.7) Lymphocytes # (Auto) 1.6x10^3/uL (1.0-4.8) Monocytes # (Auto) 0.4x10^3/uL (0.0-1.1) Eosinophils # (Auto) 0.1x10^3/uL (0.0-0.7) Basophils # (Auto) 0.1x10^3/uL (0.0-0.2) Segmented Neutrophils % 60% (35-66) Band Neutrophils % 29% (0-9) Lymphocytes % 3% (24-48) Monocytes % 1% (0-10) Metamyelocytes % 3% (0-0) Myelocytes % 4% (0-0) Nucleated Red Blood Cells 5 Platelet Estimate Decreased (ADEQUATE) Polychromasia Slight Hypochromasia Slight Anisocytosis Slight Sodium Level 143mmol/L (136-145) Potassium Level 3.6mmol/L (3.5-5.1) Chloride Level 106mmol/L (98-107) Carbon Dioxide Level 32mmol/L (21-32) Anion Gap 5 (6-14) Blood Urea Nitrogen 26mg/dL (8-26) Creatinine 1.0mg/dL (0.7-1.3) Estimated GFR (Cockcroft-Gault) 93.9 Glucose Level 375mg/dL (70-99) Calcium Level 7.1mg/dL (8.5-10.1) Test 08/28/16 08:00 O2 Saturation 98% (92-99) Arterial Blood pH 7.48 (7.35-7.45) Arterial Blood pCO2 at Patient Temp 44mmHg (35-46) Arterial Blood pO2 at Patient Temp 103mmHg (75-108) Arterial Blood HCO3 32mmol/L (21-28) Arterial Blood Base Excess 7mmol/L (-3-3) FiO2 40 Laboratory Tests Test 08/27/16 11:59 08/27/16 17:32 08/27/16 23:54 08/28/16 05:30 Glucose (Fingerstick) 210mg/dL (70-99) 235mg/dL (70-99) 282mg/dL (70-99) White Blood Count 15.7x10^3/uL (4.0-11.0) Red Blood Count 2.16x10^6/uL (4.30-5.70) Hemoglobin 7.3g/dL (13.0-17.5) Hematocrit 22.0% (39.0-53.0) Mean Corpuscular Volume 102fL (79-100) Mean Corpuscular Hemoglobin 34pg (25-35) Mean Corpuscular Hemoglobin Concent 33g/dL (31-37) Red Cell Distribution Width 14.2% (11.5-14.5) Platelet Count 77x10^3/uL (140-400) Neutrophils (%) (Auto) 87% (31-73) Lymphocytes (%) (Auto) 10% (24-48) Monocytes (%) (Auto) 2% (0-9) Eosinophils (%) (Auto) 1% (0-3) Basophils (%) (Auto) 1% (0-3) Neutrophils # (Auto) 13.6x10^3uL (1.8-7.7) Lymphocytes # (Auto) 1.6x10^3/uL (1.0-4.8) Monocytes # (Auto) 0.4x10^3/uL (0.0-1.1) Eosinophils # (Auto) 0.1x10^3/uL (0.0-0.7) Basophils # (Auto) 0.1x10^3/uL (0.0-0.2) Segmented Neutrophils % 60% (35-66) Band Neutrophils % 29% (0-9) Lymphocytes % 3% (24-48) Monocytes % 1% (0-10) Metamyelocytes % 3% (0-0) Myelocytes % 4% (0-0) Nucleated Red Blood Cells 5 Platelet Estimate Decreased (ADEQUATE) Polychromasia Slight Hypochromasia Slight Anisocytosis Slight Sodium Level 143mmol/L (136-145) Potassium Level 3.6mmol/L (3.5-5.1) Chloride Level 106mmol/L (98-107) Carbon Dioxide Level 32mmol/L (21-32) Anion Gap 5 (6-14) Blood Urea Nitrogen 26mg/dL (8-26) Creatinine 1.0mg/dL (0.7-1.3) Estimated GFR (Cockcroft-Gault) 93.9 Glucose Level 375mg/dL (70-99) Calcium Level 7.1mg/dL (8.5-10.1) Test 08/28/16 05:44 08/28/16 08:00 Glucose (Fingerstick) 360mg/dL (70-99) O2 Saturation 98% (92-99) Arterial Blood pH 7.48 (7.35-7.45) Arterial Blood pCO2 at Patient Temp 44mmHg (35-46) Arterial Blood pO2 at Patient Temp 103mmHg (75-108) Arterial Blood HCO3 32mmol/L (21-28) Arterial Blood Base Excess 7mmol/L (-3-3) FiO2 40 Microbiology 08/23/16 Blood Culture - Final, Complete NO GROWTH AFTER 5 DAYS 08/23/16 Urine Culture - Final, Complete 08/23/16 Urine Culture Result 1 (SHANON) - Final, Complete 08/23/16 Antimicrobic Susceptibility - Final, Complete Medications Current Medications Sodium Chloride 1,000 ml @ 1,000 mls/hr 1X ONCE IV Last administered on 11:16; Start 08/23/16 at 11:15; Stop 08/23/16 at 12:14; Status DC Sodium Chloride (Iv Sodium Chloride 0.9% 1000ml Bag) 1,000 ml @ 1,000 mls/hr 1X ONCE IV Last administered on 08/23/16 11:30; Start 08/23/16 at 11:30; Stop 08/23/16 at 12:29; Status DC Vancomycin HCl (Vanco Per Pharmacy) 1 each PRN DAILY PRN MC SEE COMMENTS Last administered on 08/25/16 13:04; Start 08/23/16 at 11:30; Stop 08/26/16 at 08:18; Status DC Piperacillin Sod/ Tazobactam Sod 1 each 1 each PRN DAILY PRN MC SEE COMMENTS; Start 08/23/16 at 11:30; Stop 08/25/16 at 09:54; Status DC Levofloxacin/ Dextrose 100 ml @ 100 mls/hr 1X ONCE IV Last administered on 12:58; Start 08/23/16 at 11:30; Stop 08/23/16 at 12:29; Status DC Piperacillin Sod/ Tazobactam Sod 4.5 gm/Sodium Chloride 100 ml @ 200 mls/hr 1X ONCE IV Last administered on 08/23/16 12:00; Start 08/23/16 at 12:00; Stop 08/23/16 at 12:29; Status DC Vancomycin HCl 1.5 gm/Sodium Chloride 500 ml @ 250 mls/hr 1X ONCE IV Last administered on 08/23/16 12:30; Start 08/23/16 at 12:30; Stop 08/23/16 at 14:29 ; Status DC Sodium Chloride 1,000 ml @ 1,000 mls/hr 1X ONCE IV Last administered on 12:46; Start 08/23/16 at 12:30; Stop 08/23/16 at 13:29; Status DC Piperacillin Sod/ Tazobactam Sod 3.375 gm/Sodium Chloride 50 ml @ 100 mls/hr Q6HRS IV Last administered on 08/28/16 05:48; Start 08/23/16 at 18:00 Vancomycin HCl/ Sodium Chloride (Iv Sodium Chloride 0.9% 250ml) 250 ml @ 250 mls/hr Q24H IV ; Start 08/24/16 at 13:00; Status Cancel Vancomycin HCl 1 each 1X ONCE MC ; Start 08/25/16 at 12:30; Stop 08/25/16 at 12: 31; Status DC Labetalol HCl (Normodyne) 10 mg PRN Q2HR PRN IVP HYPERTENSION, SEE COMMENTS; Start 08/23/16 at 15:45 Aspirin (STORYS.JP Aspirin) 325 mg DAILY PEG Last administered on 08/26/16 09:29; Start 08/24/16 at 09:00 Bisacodyl (Dulcolax Supp) 10 mg PRN DAILY PRN RC CONSTIPATION; Start 08/23/16 at 15:45 Vitamin D (Vitamin D3) 2,000 unit DAILY PO Last administered on 08/28/16 08:35 ; Start 08/24/16 at 09:00 Levetiracetam (Keppra) 500 mg BID PO ; Start 08/23/16 at 21:00; Stop 08/23/16 at 21:00; Status DC Vitamin B Complex (Hector B) 1 tab DAILY PO Last administered on 08/28/16 08:34; Start 08/24/16 at 09:00 Magnesium Hydroxide (Milk Of Magnesia) 2,400 mg PRN DAILY PRN PO CONSTIPATION; Start 08/23/16 at 15:45 Acetaminophen 500 mg 500 mg PRN Q6HRS PRN PO MILD PAIN / TEMP; Start 08/23/16 at 15:45 Levetiracetam/ Sodium Chloride (Keppra/Iv Sodium Chloride 0.9% 100ml) 105 ml @ 400 mls/hr Q12HR IV Last administered on 08/28/16 08:34; Start 08/23/16 at 21: 00 Pantoprazole Sodium (Protonix Vial) 40 mg DAILYAC IVP Last administered on 07:31; Start 08/24/16 at 07:30 Heparin Sodium (Porcine) 5000 unit 5,000 unit Q8HRS SQ ; Start 08/23/16 at 22:00 ; Stop 08/23/16 at 22:00; Status DC Sodium Bicarbonate/ Dextrose 1,150 ml @ 150 mls/hr Q7H40M IV Last administered on 08/25/16 08:05; Start 08/23/16 at 16:30; Stop 08/25/16 at 10:35; Status DC Sodium Bicarbonate 50 meq 1X ONCE IV Last administered on 08/23/16 16:24; Start 08/23/16 at 16:15; Stop 08/23/16 at 16:17; Status DC Albuterol/ Ipratropium 3 ml 3 ml RTQID NEB Last administered on 08/28/16 07:47 ; Start 08/23/16 at 20:00 Vancomycin HCl 750 mg/Sodium Chloride 250 ml @ 250 mls/hr Q24H IV Last administered on 08/24/16 12:15; Start 08/24/16 at 13:00; Stop 08/25/16 at 12:55 ; Status DC Norepinephrine Bitartrate 8 mg/ Sodium Chloride 258 ml @ 0 mls/hr CONT PRN IV SEE I/O RECORD Last administered on 08/25/16 00:28; Start 08/23/16 at 18:15 Sodium Chloride (Iv Sodium Chloride 0.9% 1000ml Bag) 1,000 ml @ 500 mls/hr Q2H IV Last administered on 08/23/16 17:00; Start 08/23/16 at 18:30; Stop at 20:29; Status DC Hydrocortisone Sodium Succinate (Solu-Cortef) 100 mg Q8HRS IV Last administered on 08/26/16 14:54; Start 08/23/16 at 22:30; Stop 08/26/16 at 16:49; Status DC Succinylcholine Chloride (Anectine) 200 mg STK-MED ONCE .ROUTE ; Start 08/24/16 at 04:15; Stop 08/24/16 at 04:16; Status DC Etomidate 20 mg 20 mg STK-MED ONCE IV ; Start 08/24/16 at 04:15; Stop 08/24/16 at 04:16; Status DC Fentanyl Citrate (Fentanyl 600 Mcg/30 ml FIELD BROOMER) 30 ml @ 0 mls/hr CONT PRN IV PROTOCOL; Start 08/24/16 at 04:45 Fentanyl Citrate (Fentanyl 2ml Vial) 25 mcg PRN Q1HR PRN IV COMM; Start at 04:45 Fentanyl Citrate (Fentanyl 2ml Vial) 50 mcg PRN Q1HR PRN IV COMM; Start at 04:45 Chlorhexidine Gluconate 15 ml 15 ml BID MM Last administered on 08/28/16 08:33 ; Start 08/24/16 at 09:00 Midazolam HCl 100 ml @ 0 mls/hr CONT PRN IV PER PROTOCOL Last administered on 10:50; Start 08/24/16 at 04:45 Midazolam HCl 100 ml @ As Directed STK-MED ONCE IV ; Start 08/24/16 at 04:52; Stop 08/24/16 at 04:53; Status DC Sodium Chloride 1,000 ml @ 150 mls/hr Q6H40M IV Last administered on 06:13; Start 08/24/16 at 05:45; Stop 08/24/16 at 09:59; Status DC Vasopressin 40 unit/Dextrose 102 ml @ 6 mls/hr 1X ONCE IV Last administered on 08/24/16 06:12; Start 08/24/16 at 06:00; Stop 08/24/16 at 20:00; Status DC Phenylephrine HCl 20 mg/Sodium Chloride 252 ml @ 0 mls/hr CONT PRN IV SEE I/O RECORD Last administered on 08/24/16 07:28; Start 08/24/16 at 05:45 Albumin Human 500 ml @ 125 mls/hr 1X ONCE IV Last administered on 08/24/16 06:20; Start 08/24/16 at 05:45; Stop 08/24/16 at 09:44; Status DC Micafungin Sodium 100 mg/Dextrose 100 ml @ 100 mls/hr Q24H IV Last administered on 08/26/16 09:29; Start 08/24/16 at 09:00; Stop 08/27/16 at 07:37; Status DC Epinephrine HCl/ Sodium Chloride (Adrenalin/Iv Sodium Chloride 0.9% 250ml) 254 ml @ 0 mls/hr CONT PRN IV SEE I/O RECORD; Start 08/24/16 at 07:30 Epinephrine HCl (Adrenalin) 30 mg STK-MED ONCE .ROUTE ; Start 08/23/16 at 12:00 ; Stop 08/24/16 at 10:38; Status DC Epinephrine HCl 4 mg STK-MED ONCE .ROUTE ; Start 08/23/16 at 12:00; Stop at 10:38; Status DC Sodium Bicarbonate 100 meq 100 meq STK-MED ONCE .ROUTE ; Start 08/23/16 at 12:00 ; Stop 08/24/16 at 10:38; Status DC Levothyroxine Sodium 50 mcg/ Sodium Chloride 5 ml @ 100 mls/hr DAILY IVP Last administered on 08/28/16 08:33; Start 08/24/16 at 15:00 Phytonadione 10 mg/Sodium Chloride 51 ml @ 102 mls/hr 1X ONCE IV Last administered on 08/24/16 15:14; Start 08/24/16 at 14:30; Stop 08/24/16 at 14:59 ; Status DC Vasopressin/ Dextrose (Vasostrict) 102 ml @ 6 mls/hr CONT PRN IV SEE I/O RECORD Last administered on 08/26/16 05:44; Start 08/24/16 at 18:15 Acetaminophen 650 mg 650 mg PRN Q6HRS PRN PEG MILD PAIN / TEMP Last administered on 08/24/16 20:52; Start 08/24/16 at 20:45 Levofloxacin/ Dextrose (LEVAQUIN 500mg PREMIX) 100 ml @ 100 mls/hr 1X ONCE IV Last administered on 08/25/16 08:06; Start 08/25/16 at 08:00; Stop 08/25/16 at 08:59; Status DC Insulin Aspart (Novolog) 0-9 UNITS TIDWMEALS SQ Last administered on 08/25/16 17:23; Start 08/25/16 at 08:00; Stop 08/25/16 at 19:32; Status DC Dextrose 12.5 gm PRN Q15MIN PRN IV SEE COMMENTS; Start 08/25/16 at 07:30 Insulin Aspart 10 units 10 units 1X ONCE SQ Last administered on 08/25/16 08: 08; Start 08/25/16 at 08:00; Stop 08/25/16 at 08:01; Status DC Sodium Chloride 1,000 ml @ 100 mls/hr Q10H IV Last administered on 08/28/16 02 :04; Start 08/25/16 at 11:00 Potassium Chloride/Sodium Chloride (Iv Sodium Chloride 0.45%) 1,015 ml @ 75 mls /hr 1X ONCE IV Last administered on 08/25/16 10:55; Start 08/25/16 at 11:00; Stop 08/26/16 at 00:31; Status DC Insulin Aspart 10 units 10 units 1X ONCE SQ Last administered on 08/25/16 12: 42; Start 08/25/16 at 12:45; Stop 08/25/16 at 12:46; Status DC Vancomycin HCl/ Sodium Chloride (Iv Sodium Chloride 0.9% 250ml) 250 ml @ 250 mls/hr Q18H IV Last administered on 08/26/16 06:39; Start 08/25/16 at 13:00; Stop 08/26/16 at 08:18; Status DC Insulin Aspart 0-9 UNITS Q6HRS SQ Last administered on 08/27/16 23:59; Start at 00:00 Levofloxacin/ Dextrose 100 ml @ 100 mls/hr 1X ONCE IV Last administered on 09:28; Start 08/26/16 at 09:30; Stop 08/26/16 at 10:29; Status DC Potassium Chloride/Sodium Chloride (Iv Sodium Chloride 0.45%) 1,015 ml @ 75 mls /hr 1X ONCE IV Last administered on 08/26/16 15:23; Start 08/26/16 at 11:00; Stop 08/27/16 at 00:31; Status DC Hydrocortisone Sodium Succinate 100 mg 100 mg BID IV Last administered on 08:37; Start 08/27/16 at 09:00 Amino Acids/ Electrolytes/ Dextrose 1,000 ml @ 80 mls/hr [id number] IV Last administered on 08/28/16 03:47; Start 08/27/16 at 12:30 Potassium Chloride (KCl Premix 20meq) 50 ml @ 50 mls/hr 1X ONCE IV Last administered on 08/27/16 15:29; Start 08/27/16 at 12:30; Stop 08/27/16 at 13:29; Status DC Insulin Aspart (Novolog) 15 units 1X ONCE SQ Last administered on 08/28/16 07: 13; Start 08/28/16 at 07:15; Stop 08/28/16 at 07:16; Status DC Active Scripts Active Reported Milk Of Magnesia (Magnesium Hydroxide) 2,400 Mg/10 Ml Oral.susp 2,400 Mg PO DAILY PRN Dulcolax (Bisacodyl) 10 Mg Supp.rect 10 Mg RC PRN DAILY PRN Aspirin 325 Mg Tablet 1 Tab PEG DAILY Tylenol (Acetaminophen) 325 Mg Tablet 2 Tab PO PRN Q6HRS PRN Vitamin B Complex 1 Each Tablet 1 Tab PO DAILY Vitamin D3 (Cholecalciferol (Vitamin D3)) 1,000 Unit Tablet 2,000 Unit PO DAILY Keppra (Levetiracetam) 500 Mg Tablet 500 Mg PO BID Vitals/I & O Vital Sign - Last 24 Hours 08/27/16 08/27/16 08/27/16 08/27/16 12:00 12:00 12:07 13:00 Temp 97.3 97.3 Pulse 85 87 Resp 8 12 B/P 101/74 95/67 Pulse Ox 100 100 100 O2 Delivery Ventilator Mechanical Ventilator Ventilator Ventilator 08/27/16 08/27/16 08/27/16 08/27/16 14:00 14:10 15:00 15:50 Pulse 92 82 Resp 14 12 B/P 97/67 111/86 Pulse Ox 100 100 100 100 O2 Delivery Ventilator Ventilator Ventilator Ventilator 08/27/16 08/27/16 08/27/16 08/27/16 16:00 16:00 17:00 18:00 Temp 97.8 97.8 Pulse 88 93 93 Resp 8 11 14 B/P 123/85 129/82 122/88 Pulse Ox 100 100 100 O2 Delivery Mechanical Ventilator Ventilator Ventilator Ventilator 08/27/16 08/27/16 08/27/16 08/27/16 18:06 19:00 20:00 20:00 Temp 98.1 98.1 Pulse 96 92 Resp 16 14 B/P 113/82 116/80 Pulse Ox 100 100 100 O2 Delivery Ventilator Ventilator Ventilator Mechanical Ventilator 08/27/16 08/27/16 08/27/16 08/27/16 20:29 21:00 22:00 22:50 Pulse 104 102 Resp 15 13 B/P 106/77 119/90 Pulse Ox 100 100 100 100 O2 Delivery Ventilator Ventilator Ventilator Ventilator 08/27/16 08/27/16 08/28/16 08/28/16 23:00 23:59 00:00 01:00 Temp 98.8 98.8 Pulse 94 97 103 Resp 11 16 15 B/P 113/80 128/88 128/88 Pulse Ox 100 100 100 O2 Delivery Ventilator Mechanical Ventilator Ventilator Ventilator 08/28/16 08/28/16 08/28/16 08/28/16 01:22 02:00 03:00 04:00 Temp 100.2 100.2 Pulse 92 93 102 Resp 13 10 12 B/P 110/78 106/66 132/87 Pulse Ox 100 100 100 100 O2 Delivery Ventilator Ventilator Ventilator Ventilator 08/28/16 08/28/16 08/28/16 08/28/16 04:00 05:00 05:45 06:00 Pulse 96 98 Resp 10 10 B/P 132/94 113/79 Pulse Ox 100 100 100 O2 Delivery Mechanical Ventilator Ventilator Ventilator Ventilator 08/28/16 08/28/16 08/28/16 08/28/16 07:00 07:48 08:00 08:00 Temp 99.3 99.3 Pulse 96 100 Resp 12 7 B/P 119/86 103/71 Pulse Ox 96 100 100 O2 Delivery Ventilator Ventilator Mechanical Ventilator Ventilator O2 Flow Rate 5.0 08/28/16 08/28/16 09:00 10:00 Pulse 96 100 Resp 16 14 B/P 130/86 125/87 Pulse Ox 96 100 O2 Delivery Ventilator Ventilator Intake and Output 08/27/16 08/27/16 08/28/16 15:00 23:00 07:00 Intake Total 2681 ml Output Total 815 ml 1330 ml 1410 ml Balance -815 ml -1330 ml 1271 ml JAMEE GUZMAN III, DO Aug 28, 2016 11:26
--- NOTE | 2016-08-28 16:15 | PDOC ---
PULMONARY PROGRESS NOTES Subjective off sedation and levo, appears more alert Vitals Vital Signs Date Time Temp Pulse Resp B/P Pulse Ox O2 Delivery O2 Flow Rate FiO2 08/28/16 15:26 100 Ventilator 08/28/16 13:00 88 8 95/72 08/28/16 11:00 99.0 99.0 08/28/16 08:00 5.0 Lungs: Clear Cardiovascular: S1, S2 Abdomen: Soft Extremities: Other (some edema) Skin: Warm Labs Laboratory Tests Test 08/26/16 18:28 08/27/16 00:24 08/27/16 05:44 08/27/16 05:45 Glucose (Fingerstick) 230mg/dL (70-99) 217mg/dL (70-99) 221mg/dL (70-99) Sodium Level 145mmol/L (136-145) Potassium Level 3.3mmol/L (3.5-5.1) Chloride Level 106mmol/L (98-107) Carbon Dioxide Level 33mmol/L (21-32) Anion Gap 6 (6-14) Blood Urea Nitrogen 25mg/dL (8-26) Creatinine 1.1mg/dL (0.7-1.3) Estimated GFR (Cockcroft-Gault) 84.1 Glucose Level 251mg/dL (70-99) Calcium Level 7.7mg/dL (8.5-10.1) Test 08/27/16 08:00 08/27/16 10:12 08/27/16 11:59 08/27/16 17:32 O2 Saturation 98% (92-99) Arterial Blood pH 7.50 (7.35-7.45) Arterial Blood pCO2 at Patient Temp 40mmHg (35-46) Arterial Blood pO2 at Patient Temp 129mmHg (75-108) Arterial Blood HCO3 30mmol/L (21-28) Arterial Blood Base Excess 6mmol/L (-3-3) FiO2 40 White Blood Count 18.9x10^3/uL (4.0-11.0) Red Blood Count 2.30x10^6/uL (4.30-5.70) Hemoglobin 7.7g/dL (13.0-17.5) Hematocrit 23.2% (39.0-53.0) Mean Corpuscular Volume 101fL (79-100) Mean Corpuscular Hemoglobin 34pg (25-35) Mean Corpuscular Hemoglobin Concent 33g/dL (31-37) Red Cell Distribution Width 14.2% (11.5-14.5) Platelet Count 78x10^3/uL (140-400) Glucose (Fingerstick) 210mg/dL (70-99) 235mg/dL (70-99) Test 08/27/16 23:54 08/28/16 05:30 08/28/16 05:44 08/28/16 08:00 Glucose (Fingerstick) 282mg/dL (70-99) 360mg/dL (70-99) White Blood Count 15.7x10^3/uL (4.0-11.0) Red Blood Count 2.16x10^6/uL (4.30-5.70) Hemoglobin 7.3g/dL (13.0-17.5) Hematocrit 22.0% (39.0-53.0) Mean Corpuscular Volume 102fL (79-100) Mean Corpuscular Hemoglobin 34pg (25-35) Mean Corpuscular Hemoglobin Concent 33g/dL (31-37) Red Cell Distribution Width 14.2% (11.5-14.5) Platelet Count 77x10^3/uL (140-400) Neutrophils (%) (Auto) 87% (31-73) Lymphocytes (%) (Auto) 10% (24-48) Monocytes (%) (Auto) 2% (0-9) Eosinophils (%) (Auto) 1% (0-3) Basophils (%) (Auto) 1% (0-3) Neutrophils # (Auto) 13.6x10^3uL (1.8-7.7) Lymphocytes # (Auto) 1.6x10^3/uL (1.0-4.8) Monocytes # (Auto) 0.4x10^3/uL (0.0-1.1) Eosinophils # (Auto) 0.1x10^3/uL (0.0-0.7) Basophils # (Auto) 0.1x10^3/uL (0.0-0.2) Segmented Neutrophils % 60% (35-66) Band Neutrophils % 29% (0-9) Lymphocytes % 3% (24-48) Monocytes % 1% (0-10) Metamyelocytes % 3% (0-0) Myelocytes % 4% (0-0) Nucleated Red Blood Cells 5 Platelet Estimate Decreased (ADEQUATE) Polychromasia Slight Hypochromasia Slight Anisocytosis Slight Sodium Level 143mmol/L (136-145) Potassium Level 3.6mmol/L (3.5-5.1) Chloride Level 106mmol/L (98-107) Carbon Dioxide Level 32mmol/L (21-32) Anion Gap 5 (6-14) Blood Urea Nitrogen 26mg/dL (8-26) Creatinine 1.0mg/dL (0.7-1.3) Estimated GFR (Cockcroft-Gault) 93.9 Glucose Level 375mg/dL (70-99) Calcium Level 7.1mg/dL (8.5-10.1) O2 Saturation 98% (92-99) Arterial Blood pH 7.48 (7.35-7.45) Arterial Blood pCO2 at Patient Temp 44mmHg (35-46) Arterial Blood pO2 at Patient Temp 103mmHg (75-108) Arterial Blood HCO3 32mmol/L (21-28) Arterial Blood Base Excess 7mmol/L (-3-3) FiO2 40 Laboratory Tests Test 08/27/16 17:32 08/27/16 23:54 08/28/16 05:30 08/28/16 05:44 Glucose (Fingerstick) 235mg/dL (70-99) 282mg/dL (70-99) 360mg/dL (70-99) White Blood Count 15.7x10^3/uL (4.0-11.0) Red Blood Count 2.16x10^6/uL (4.30-5.70) Hemoglobin 7.3g/dL (13.0-17.5) Hematocrit 22.0% (39.0-53.0) Mean Corpuscular Volume 102fL (79-100) Mean Corpuscular Hemoglobin 34pg (25-35) Mean Corpuscular Hemoglobin Concent 33g/dL (31-37) Red Cell Distribution Width 14.2% (11.5-14.5) Platelet Count 77x10^3/uL (140-400) Neutrophils (%) (Auto) 87% (31-73) Lymphocytes (%) (Auto) 10% (24-48) Monocytes (%) (Auto) 2% (0-9) Eosinophils (%) (Auto) 1% (0-3) Basophils (%) (Auto) 1% (0-3) Neutrophils # (Auto) 13.6x10^3uL (1.8-7.7) Lymphocytes # (Auto) 1.6x10^3/uL (1.0-4.8) Monocytes # (Auto) 0.4x10^3/uL (0.0-1.1) Eosinophils # (Auto) 0.1x10^3/uL (0.0-0.7) Basophils # (Auto) 0.1x10^3/uL (0.0-0.2) Segmented Neutrophils % 60% (35-66) Band Neutrophils % 29% (0-9) Lymphocytes % 3% (24-48) Monocytes % 1% (0-10) Metamyelocytes % 3% (0-0) Myelocytes % 4% (0-0) Nucleated Red Blood Cells 5 Platelet Estimate Decreased (ADEQUATE) Polychromasia Slight Hypochromasia Slight Anisocytosis Slight Sodium Level 143mmol/L (136-145) Potassium Level 3.6mmol/L (3.5-5.1) Chloride Level 106mmol/L (98-107) Carbon Dioxide Level 32mmol/L (21-32) Anion Gap 5 (6-14) Blood Urea Nitrogen 26mg/dL (8-26) Creatinine 1.0mg/dL (0.7-1.3) Estimated GFR (Cockcroft-Gault) 93.9 Glucose Level 375mg/dL (70-99) Calcium Level 7.1mg/dL (8.5-10.1) Test 08/28/16 08:00 O2 Saturation 98% (92-99) Arterial Blood pH 7.48 (7.35-7.45) Arterial Blood pCO2 at Patient Temp 44mmHg (35-46) Arterial Blood pO2 at Patient Temp 103mmHg (75-108) Arterial Blood HCO3 32mmol/L (21-28) Arterial Blood Base Excess 7mmol/L (-3-3) FiO2 40 Medications Active Scripts Medications Dose Route/Sig Days Date Category Milk Of Magnesia (Magnesium Hydroxide) 2,400 Mg/10 Ml Oral.susp 2,400 Mg PO DAILY PRN 08/21/15 Reported Dulcolax (Bisacodyl) 10 Mg Supp.rect 10 Mg RC PRN DAILY PRN 08/21/15 Reported Aspirin 325 Mg Tablet 1 Tab PEG DAILY 08/02/15 Reported Tylenol (Acetaminophen) 325 Mg Tablet 2 Tab PO PRN Q6HRS PRN 08/02/15 Reported Vitamin B Complex 1 Each Tablet 1 Tab PO DAILY 07/25/15 Reported Vitamin D3 (Cholecalciferol (Vitamin D3)) 1,000 Unit Tablet 2,000 Unit PO DAILY 07/25/15 Reported Keppra (Levetiracetam) 500 Mg Tablet 500 Mg PO BID 07/25/15 Reported Impression . IMPRESSION: 1. Acute hypoxic respiratory failure secondary septic shock 2. Septic shock cultures so far negative 3. Abnormal chest x-ray with initial x-ray showing infiltrate 4. Acute severe metabolic acidosis with severe lactic acidosis secondary to sepsis/septic shock. MAHAD contributing to metabolic acidosis, improved 5. Hematuria 6. Urinary tract infection. 7. Coagulopathy, most likely related to early disseminated intravascular coagulation. 8. Underlying Down's syndrome 9. Dysphagia S/P PEG Plan . appears more alert, check cxr in am, trail in am not tolerating tube feeding will start PPN d/c levo decrease VT decrease steroids ERINN HORN MD Aug 28, 2016 16:15
[2016-08-29] VITALS (24 sets, daily range): BP systolic 87–126; BP diastolic 52–83
[2016-08-29] MEDS: INSULIN ASPART 300 UNITS/3 ML INSULN.PEN SQ SCH ×4 (00:36→18:12)
[2016-08-29] MEDS: PIPERACILLIN/TAZOBACTAM 3.375 GM in IV NORMAL SALINE 50ML 50 ML IV SCH ×4 (00:37→18:20)
[2016-08-29] MEDS: AA 4.25%/CALCIUM/LYTES/D5W 1,000 ML IV SCH ×2 (05:59→20:58)
[2016-08-29] MEDS: IPRATRPIUM/ALBUTEROL 0.5/2.5MG 3 ML NEBU. NEB SCH ×4 (07:06→19:34)
[2016-08-29 07:19] LABS: HCO3 ABG 31 mmol/L (21-28); PCO2 ABG 39 mmHg (35-46); PH ABG 7.52 (7.35-7.45); PO2 ABG 98 mmHg (75-108); SAT O2 ABG 97 % (92-99)
[2016-08-29] MEDS: VITAMIN B COMPLEX TABLET. PO SCH (07:44)
[2016-08-29] MEDS: PANTOPRAZOLE IV PUSH 40 MG VIAL. IVP SCH (07:44)
[2016-08-29] MEDS: CHOLECALCIFEROL (VITAMIN D3) 1,000 UNIT TABLET PO SCH (07:44)
[2016-08-29] MEDS: HYDROCORTISONE SOD SUCC/PF 100 MG/2 ML VIAL. IV SCH ×2 (07:44→20:59)
[2016-08-29] MEDS: ASPIRIN 325 MG TABLET PEG SCH (07:44)
[2016-08-29] MEDS: CHLORHEXIDINE 0.12% 15 ML MOUTHWASH. MM SCH (07:45)
--- NOTE | 2016-08-29 08:23 | PDOC ---
Infectious Disease Note Subjective Subjective Off sedation Off pressors Remains intubated. FiO2 40% G-tube to dependent drainage. No fever last 24 hours ROS ROS Unobtainable Vital Sign Vital Signs Vital Signs Date Time Temp Pulse Resp B/P Pulse Ox O2 Delivery O2 Flow Rate FiO2 08/29/16 07:44 18 100 Ventilator 08/29/16 06:00 92 115/83 08/29/16 04:00 97.9 97.9 08/28/16 08:00 5.0 Physical Exam PHYSICAL EXAM GENERAL: Alert, NAD HEENT: Cataracts. ETT. Oral cavity pink, dry LUNGS: Clear HEART: S1S2, regular ABD: Round, BS present, soft, no grimace to palpation. G-tube intact : Bowling EXT: Trace edema. NETWORK DESKTOP SUPPORT SPECIALIST: Alert, unresponsive to verbal stimuli SKIN: No rash LUE-PICC. clean Labs Lab Laboratory Tests Test 08/28/16 17:46 08/29/16 00:33 08/29/16 05:57 Glucose (Fingerstick) 307mg/dL (70-99) 318mg/dL (70-99) 328mg/dL (70-99) Micro BLOOD CULTURE Preliminary NO GROWTH AFTER 4 DAYS Objective Assessment Severe Sepsis - improved Hyperglycemia -improved ? early DIC vs sepsis with thrombocytopenia and coagulopathy - stable Hydronephrosis on U/S - May need nephrostomy tubes per urology Acute Resp failure - intubated Lactic acidosis MAHAD with h/o hydronephrosis -better Bandemia/leukocytosis - on Hydrocortisone Hematuria - improved UTI - Proteus H/o granulomas Plan Plan of Care Cont Zosyn F/u cxr Needs CT chest/abd/pelvis when stable Critically ill Attending Co-Sign The patient was seen and interviewed as well as examined at the bedside. The chart was reviewed. The case was discussed. Agree with the plan of care. JESSI AGOSTO APRN Aug 29, 2016 08:23 UNRULY MENDOZA MD Aug 29, 2016 13:07
[2016-08-29] MEDS: FENTANYL STANDARD PCA 30 ML IV PRN ×3 (08:57→18:11)
--- NOTE | 2016-08-29 09:20 | PDOC ---
G I PROGRESS NOTE Subjective Seems more awake. Intubated. Objective NO stools charted recently. Physical Exam Lungs clear anteriorly. RRR Abdomen soft, not distended nor apparently tender. Bile in G-tube. Can't appreciated any bowel sounds. Review of Relevant I have reviewed the following items kassie (where applicable) has been applied. Labs Laboratory Tests Test 08/27/16 10:12 08/27/16 11:59 08/27/16 17:32 08/27/16 23:54 White Blood Count 18.9x10^3/uL (4.0-11.0) Red Blood Count 2.30x10^6/uL (4.30-5.70) Hemoglobin 7.7g/dL (13.0-17.5) Hematocrit 23.2% (39.0-53.0) Mean Corpuscular Volume 101fL (79-100) Mean Corpuscular Hemoglobin 34pg (25-35) Mean Corpuscular Hemoglobin Concent 33g/dL (31-37) Red Cell Distribution Width 14.2% (11.5-14.5) Platelet Count 78x10^3/uL (140-400) Glucose (Fingerstick) 210mg/dL (70-99) 235mg/dL (70-99) 282mg/dL (70-99) Test 08/28/16 05:30 08/28/16 05:44 08/28/16 08:00 08/28/16 17:46 White Blood Count 15.7x10^3/uL (4.0-11.0) Red Blood Count 2.16x10^6/uL (4.30-5.70) Hemoglobin 7.3g/dL (13.0-17.5) Hematocrit 22.0% (39.0-53.0) Mean Corpuscular Volume 102fL (79-100) Mean Corpuscular Hemoglobin 34pg (25-35) Mean Corpuscular Hemoglobin Concent 33g/dL (31-37) Red Cell Distribution Width 14.2% (11.5-14.5) Platelet Count 77x10^3/uL (140-400) Neutrophils (%) (Auto) 87% (31-73) Lymphocytes (%) (Auto) 10% (24-48) Monocytes (%) (Auto) 2% (0-9) Eosinophils (%) (Auto) 1% (0-3) Basophils (%) (Auto) 1% (0-3) Neutrophils # (Auto) 13.6x10^3uL (1.8-7.7) Lymphocytes # (Auto) 1.6x10^3/uL (1.0-4.8) Monocytes # (Auto) 0.4x10^3/uL (0.0-1.1) Eosinophils # (Auto) 0.1x10^3/uL (0.0-0.7) Basophils # (Auto) 0.1x10^3/uL (0.0-0.2) Segmented Neutrophils % 60% (35-66) Band Neutrophils % 29% (0-9) Lymphocytes % 3% (24-48) Monocytes % 1% (0-10) Metamyelocytes % 3% (0-0) Myelocytes % 4% (0-0) Nucleated Red Blood Cells 5 Platelet Estimate Decreased (ADEQUATE) Polychromasia Slight Hypochromasia Slight Anisocytosis Slight Sodium Level 143mmol/L (136-145) Potassium Level 3.6mmol/L (3.5-5.1) Chloride Level 106mmol/L (98-107) Carbon Dioxide Level 32mmol/L (21-32) Anion Gap 5 (6-14) Blood Urea Nitrogen 26mg/dL (8-26) Creatinine 1.0mg/dL (0.7-1.3) Estimated GFR (Cockcroft-Gault) 93.9 Glucose Level 375mg/dL (70-99) Calcium Level 7.1mg/dL (8.5-10.1) Glucose (Fingerstick) 360mg/dL (70-99) 307mg/dL (70-99) O2 Saturation 98% (92-99) Arterial Blood pH 7.48 (7.35-7.45) Arterial Blood pCO2 at Patient Temp 44mmHg (35-46) Arterial Blood pO2 at Patient Temp 103mmHg (75-108) Arterial Blood HCO3 32mmol/L (21-28) Arterial Blood Base Excess 7mmol/L (-3-3) FiO2 40 Test 08/29/16 00:33 08/29/16 05:57 Glucose (Fingerstick) 318mg/dL (70-99) 328mg/dL (70-99) Laboratory Tests Test 08/28/16 17:46 08/29/16 00:33 08/29/16 05:57 Glucose (Fingerstick) 307mg/dL (70-99) 318mg/dL (70-99) 328mg/dL (70-99) Microbiology 08/23/16 Blood Culture - Final, Complete NO GROWTH AFTER 5 DAYS 08/23/16 Urine Culture - Final, Complete 08/23/16 Urine Culture Result 1 (SHANON) - Final, Complete 08/23/16 Antimicrobic Susceptibility - Final, Complete Medications Current Medications Sodium Chloride 1,000 ml @ 1,000 mls/hr 1X ONCE IV Last administered on 11:16; Start 08/23/16 at 11:15; Stop 08/23/16 at 12:14; Status DC Sodium Chloride (Iv Sodium Chloride 0.9% 1000ml Bag) 1,000 ml @ 1,000 mls/hr 1X ONCE IV Last administered on 08/23/16 11:30; Start 08/23/16 at 11:30; Stop 08/23/16 at 12:29; Status DC Vancomycin HCl (Vanco Per Pharmacy) 1 each PRN DAILY PRN MC SEE COMMENTS Last administered on 08/25/16 13:04; Start 08/23/16 at 11:30; Stop 08/26/16 at 08:18; Status DC Piperacillin Sod/ Tazobactam Sod 1 each 1 each PRN DAILY PRN MC SEE COMMENTS; Start 08/23/16 at 11:30; Stop 08/25/16 at 09:54; Status DC Levofloxacin/ Dextrose 100 ml @ 100 mls/hr 1X ONCE IV Last administered on 12:58; Start 08/23/16 at 11:30; Stop 08/23/16 at 12:29; Status DC Piperacillin Sod/ Tazobactam Sod 4.5 gm/Sodium Chloride 100 ml @ 200 mls/hr 1X ONCE IV Last administered on 08/23/16 12:00; Start 08/23/16 at 12:00; Stop 08/23/16 at 12:29; Status DC Vancomycin HCl 1.5 gm/Sodium Chloride 500 ml @ 250 mls/hr 1X ONCE IV Last administered on 08/23/16 12:30; Start 08/23/16 at 12:30; Stop 08/23/16 at 14:29 ; Status DC Sodium Chloride 1,000 ml @ 1,000 mls/hr 1X ONCE IV Last administered on 12:46; Start 08/23/16 at 12:30; Stop 08/23/16 at 13:29; Status DC Piperacillin Sod/ Tazobactam Sod 3.375 gm/Sodium Chloride 50 ml @ 100 mls/hr Q6HRS IV Last administered on 08/29/16 05:58; Start 08/23/16 at 18:00 Vancomycin HCl/ Sodium Chloride (Iv Sodium Chloride 0.9% 250ml) 250 ml @ 250 mls/hr Q24H IV ; Start 08/24/16 at 13:00; Status Cancel Vancomycin HCl 1 each 1X ONCE MC ; Start 08/25/16 at 12:30; Stop 08/25/16 at 12: 31; Status DC Labetalol HCl (Normodyne) 10 mg PRN Q2HR PRN IVP HYPERTENSION, SEE COMMENTS; Start 08/23/16 at 15:45 Aspirin (Teklatech Aspirin) 325 mg DAILY PEG Last administered on 08/29/16 07:44; Start 08/24/16 at 09:00 Bisacodyl (Dulcolax Supp) 10 mg PRN DAILY PRN RC CONSTIPATION; Start 08/23/16 at 15:45 Vitamin D (Vitamin D3) 2,000 unit DAILY PO Last administered on 08/29/16 07:44 ; Start 08/24/16 at 09:00 Levetiracetam (Keppra) 500 mg BID PO ; Start 08/23/16 at 21:00; Stop 08/23/16 at 21:00; Status DC Vitamin B Complex (Hector B) 1 tab DAILY PO Last administered on 08/29/16 07:44; Start 08/24/16 at 09:00 Magnesium Hydroxide (Milk Of Magnesia) 2,400 mg PRN DAILY PRN PO CONSTIPATION; Start 08/23/16 at 15:45 Acetaminophen 500 mg 500 mg PRN Q6HRS PRN PO MILD PAIN / TEMP; Start 08/23/16 at 15:45 Levetiracetam/ Sodium Chloride (Keppra/Iv Sodium Chloride 0.9% 100ml) 105 ml @ 400 mls/hr Q12HR IV Last administered on 08/28/16 21:27; Start 08/23/16 at 21: 00 Pantoprazole Sodium (Protonix Vial) 40 mg DAILYAC IVP Last administered on 07:44; Start 08/24/16 at 07:30 Heparin Sodium (Porcine) 5000 unit 5,000 unit Q8HRS SQ ; Start 08/23/16 at 22:00 ; Stop 08/23/16 at 22:00; Status DC Sodium Bicarbonate/ Dextrose 1,150 ml @ 150 mls/hr Q7H40M IV Last administered on 08/25/16 08:05; Start 08/23/16 at 16:30; Stop 08/25/16 at 10:35; Status DC Sodium Bicarbonate 50 meq 1X ONCE IV Last administered on 08/23/16 16:24; Start 08/23/16 at 16:15; Stop 08/23/16 at 16:17; Status DC Albuterol/ Ipratropium 3 ml 3 ml RTQID NEB Last administered on 08/29/16 07:06 ; Start 08/23/16 at 20:00 Vancomycin HCl 750 mg/Sodium Chloride 250 ml @ 250 mls/hr Q24H IV Last administered on 08/24/16 12:15; Start 08/24/16 at 13:00; Stop 08/25/16 at 12:55 ; Status DC Norepinephrine Bitartrate 8 mg/ Sodium Chloride 258 ml @ 0 mls/hr CONT PRN IV SEE I/O RECORD Last administered on 08/25/16 00:28; Start 08/23/16 at 18:15 Sodium Chloride (Iv Sodium Chloride 0.9% 1000ml Bag) 1,000 ml @ 500 mls/hr Q2H IV Last administered on 08/23/16 17:00; Start 08/23/16 at 18:30; Stop at 20:29; Status DC Hydrocortisone Sodium Succinate (Solu-Cortef) 100 mg Q8HRS IV Last administered on 08/26/16 14:54; Start 08/23/16 at 22:30; Stop 08/26/16 at 16:49; Status DC Succinylcholine Chloride (Anectine) 200 mg STK-MED ONCE .ROUTE ; Start 08/24/16 at 04:15; Stop 08/24/16 at 04:16; Status DC Etomidate 20 mg 20 mg STK-MED ONCE IV ; Start 08/24/16 at 04:15; Stop 08/24/16 at 04:16; Status DC Fentanyl Citrate (Fentanyl 600 Mcg/30 ml STEAM CONDITIONING OPERATOR) 30 ml @ 0 mls/hr CONT PRN IV PROTOCOL Last administered on 08/29/16 08:57; Start 08/24/16 at 04:45 Fentanyl Citrate (Fentanyl 2ml Vial) 25 mcg PRN Q1HR PRN IV COMM Last administered on 08/29/16 07:44; Start 08/24/16 at 04:45 Fentanyl Citrate (Fentanyl 2ml Vial) 50 mcg PRN Q1HR PRN IV COMM; Start at 04:45 Chlorhexidine Gluconate 15 ml 15 ml BID MM Last administered on 08/29/16 07:45 ; Start 08/24/16 at 09:00 Midazolam HCl 100 ml @ 0 mls/hr CONT PRN IV PER PROTOCOL Last administered on 10:50; Start 08/24/16 at 04:45 Midazolam HCl 100 ml @ As Directed STK-MED ONCE IV ; Start 08/24/16 at 04:52; Stop 08/24/16 at 04:53; Status DC Sodium Chloride 1,000 ml @ 150 mls/hr Q6H40M IV Last administered on 06:13; Start 08/24/16 at 05:45; Stop 08/24/16 at 09:59; Status DC Vasopressin 40 unit/Dextrose 102 ml @ 6 mls/hr 1X ONCE IV Last administered on 08/24/16 06:12; Start 08/24/16 at 06:00; Stop 08/24/16 at 20:00; Status DC Phenylephrine HCl 20 mg/Sodium Chloride 252 ml @ 0 mls/hr CONT PRN IV SEE I/O RECORD Last administered on 08/24/16 07:28; Start 08/24/16 at 05:45 Albumin Human 500 ml @ 125 mls/hr 1X ONCE IV Last administered on 08/24/16 06:20; Start 08/24/16 at 05:45; Stop 08/24/16 at 09:44; Status DC Micafungin Sodium 100 mg/Dextrose 100 ml @ 100 mls/hr Q24H IV Last administered on 08/26/16 09:29; Start 08/24/16 at 09:00; Stop 08/27/16 at 07:37; Status DC Epinephrine HCl/ Sodium Chloride (Adrenalin/Iv Sodium Chloride 0.9% 250ml) 254 ml @ 0 mls/hr CONT PRN IV SEE I/O RECORD; Start 08/24/16 at 07:30 Epinephrine HCl (Adrenalin) 30 mg STK-MED ONCE .ROUTE ; Start 08/23/16 at 12:00 ; Stop 08/24/16 at 10:38; Status DC Epinephrine HCl 4 mg STK-MED ONCE .ROUTE ; Start 08/23/16 at 12:00; Stop at 10:38; Status DC Sodium Bicarbonate 100 meq 100 meq STK-MED ONCE .ROUTE ; Start 08/23/16 at 12:00 ; Stop 08/24/16 at 10:38; Status DC Levothyroxine Sodium 50 mcg/ Sodium Chloride 5 ml @ 100 mls/hr DAILY IVP Last administered on 08/28/16 08:33; Start 08/24/16 at 15:00 Phytonadione 10 mg/Sodium Chloride 51 ml @ 102 mls/hr 1X ONCE IV Last administered on 08/24/16 15:14; Start 08/24/16 at 14:30; Stop 08/24/16 at 14:59 ; Status DC Vasopressin/ Dextrose (Vasostrict) 102 ml @ 6 mls/hr CONT PRN IV SEE I/O RECORD Last administered on 08/26/16 05:44; Start 08/24/16 at 18:15 Acetaminophen 650 mg 650 mg PRN Q6HRS PRN PEG MILD PAIN / TEMP Last administered on 08/24/16 20:52; Start 08/24/16 at 20:45 Levofloxacin/ Dextrose (LEVAQUIN 500mg PREMIX) 100 ml @ 100 mls/hr 1X ONCE IV Last administered on 08/25/16 08:06; Start 08/25/16 at 08:00; Stop 08/25/16 at 08:59; Status DC Insulin Aspart (Novolog) 0-9 UNITS TIDWMEALS SQ Last administered on 08/25/16 17:23; Start 08/25/16 at 08:00; Stop 08/25/16 at 19:32; Status DC Dextrose 12.5 gm PRN Q15MIN PRN IV SEE COMMENTS; Start 08/25/16 at 07:30 Insulin Aspart 10 units 10 units 1X ONCE SQ Last administered on 08/25/16 08: 08; Start 08/25/16 at 08:00; Stop 08/25/16 at 08:01; Status DC Sodium Chloride 1,000 ml @ 100 mls/hr Q10H IV Last administered on 08/28/16 22 :21; Start 08/25/16 at 11:00 Potassium Chloride/Sodium Chloride (Iv Sodium Chloride 0.45%) 1,015 ml @ 75 mls /hr 1X ONCE IV Last administered on 08/25/16 10:55; Start 08/25/16 at 11:00; Stop 08/26/16 at 00:31; Status DC Insulin Aspart 10 units 10 units 1X ONCE SQ Last administered on 08/25/16 12: 42; Start 08/25/16 at 12:45; Stop 08/25/16 at 12:46; Status DC Vancomycin HCl/ Sodium Chloride (Iv Sodium Chloride 0.9% 250ml) 250 ml @ 250 mls/hr Q18H IV Last administered on 08/26/16 06:39; Start 08/25/16 at 13:00; Stop 08/26/16 at 08:18; Status DC Insulin Aspart 0-9 UNITS Q6HRS SQ Last administered on 08/29/16 06:05; Start at 00:00 Levofloxacin/ Dextrose 100 ml @ 100 mls/hr 1X ONCE IV Last administered on 09:28; Start 08/26/16 at 09:30; Stop 08/26/16 at 10:29; Status DC Potassium Chloride/Sodium Chloride (Iv Sodium Chloride 0.45%) 1,015 ml @ 75 mls /hr 1X ONCE IV Last administered on 08/26/16 15:23; Start 08/26/16 at 11:00; Stop 08/27/16 at 00:31; Status DC Hydrocortisone Sodium Succinate 100 mg 100 mg BID IV Last administered on 07:44; Start 08/27/16 at 09:00 Amino Acids/ Electrolytes/ Dextrose 1,000 ml @ 80 mls/hr [id number] IV Last administered on 08/29/16 05:59; Start 08/27/16 at 12:30 Potassium Chloride (KCl Premix 20meq) 50 ml @ 50 mls/hr 1X ONCE IV Last administered on 08/27/16 15:29; Start 08/27/16 at 12:30; Stop 08/27/16 at 13:29; Status DC Insulin Aspart (Novolog) 15 units 1X ONCE SQ Last administered on 08/28/16 07: 13; Start 08/28/16 at 07:15; Stop 08/28/16 at 07:16; Status DC Active Scripts Active Reported Milk Of Magnesia (Magnesium Hydroxide) 2,400 Mg/10 Ml Oral.susp 2,400 Mg PO DAILY PRN Dulcolax (Bisacodyl) 10 Mg Supp.rect 10 Mg RC PRN DAILY PRN Aspirin 325 Mg Tablet 1 Tab PEG DAILY Tylenol (Acetaminophen) 325 Mg Tablet 2 Tab PO PRN Q6HRS PRN Vitamin B Complex 1 Each Tablet 1 Tab PO DAILY Vitamin D3 (Cholecalciferol (Vitamin D3)) 1,000 Unit Tablet 2,000 Unit PO DAILY Keppra (Levetiracetam) 500 Mg Tablet 500 Mg PO BID Vitals/I & O Vital Sign - Last 24 Hours 08/28/16 08/28/16 08/28/16 08/28/16 09:30 10:00 11:00 12:00 Temp 99.0 99.0 Pulse 100 94 Resp 14 16 B/P 125/87 111/84 Pulse Ox 100 100 100 O2 Delivery Ventilator Ventilator Ventilator Mechanical Ventilator 08/28/16 08/28/16 08/28/16 08/28/16 12:00 12:09 13:00 13:40 Pulse 98 88 Resp 16 8 B/P 135/95 95/72 Pulse Ox 98 100 99 100 O2 Delivery Ventilator Ventilator Ventilator Ventilator 08/28/16 08/28/16 08/28/16 08/28/16 14:00 15:00 15:26 16:00 Temp 99.0 99.0 Pulse 84 88 100 Resp 9 8 13 B/P 104/70 116/76 110/65 Pulse Ox 100 100 100 100 O2 Delivery Ventilator Ventilator Ventilator Ventilator 08/28/16 08/28/16 08/28/16 08/28/16 16:00 17:00 18:00 19:00 Pulse 96 96 83 Resp 14 31 12 B/P 110/71 105/65 89/48 Pulse Ox 100 100 100 O2 Delivery Mechanical Ventilator Ventilator Ventilator Ventilator 08/28/16 08/28/16 08/28/16 08/28/16 20:00 20:00 21:00 22:00 Temp 98.2 98.2 Pulse 86 90 92 Resp 10 12 12 B/P 86/57 98/57 95/58 Pulse Ox 100 100 100 O2 Delivery Ventilator Mechanical Ventilator Ventilator Ventilator 08/28/16 08/28/16 08/29/16 08/29/16 23:00 23:13 00:00 00:00 Temp 99.1 99.1 Pulse 96 85 Resp 14 12 B/P 112/74 124/77 Pulse Ox 100 100 99 O2 Delivery Ventilator Ventilator Mechanical Ventilator Ventilator 08/29/16 08/29/16 08/29/16 08/29/16 01:00 01:37 02:00 03:00 Pulse 100 102 96 Resp 14 14 14 B/P 119/79 119/79 119/79 Pulse Ox 100 100 100 100 O2 Delivery Ventilator Ventilator Ventilator Ventilator 08/29/16 08/29/16 08/29/16 08/29/16 03:56 04:00 04:11 05:00 Temp 97.9 97.9 Pulse 90 96 Resp 10 10 B/P 126/76 119/82 Pulse Ox 100 100 100 O2 Delivery Ventilator Ventilator Mechanical Ventilator Ventilator 08/29/16 08/29/16 08/29/16 08/29/16 06:00 06:06 07:06 07:44 Pulse 92 Resp 12 18 B/P 115/83 Pulse Ox 100 100 100 100 O2 Delivery Ventilator Ventilator Ventilator Ventilator 08/29/16 08:57 Resp 22 Pulse Ox 100 O2 Delivery Ventilator Intake and Output 08/28/16 08/28/16 08/29/16 15:00 23:00 07:00 Intake Total 160 ml 2049 ml 2354 ml Output Total 1180 ml 490 ml 1925 ml Balance -1020 ml 1559 ml 429 ml Problem List Problems Medical Problems: (1) HAP (hospital-acquired pneumonia) Status: Acute (2) Pneumonia Status: Acute Assessment Ileus, persists? Plan of Care: Continue current Tx, Mgmt Plan of Care Note Will check KUB again. If stools, try feeding. JOANIE PEDRO MD Aug 29, 2016 09:20
[2016-08-29 09:57] LABS: HCO3 ABG 32 mmol/L (21-28); PCO2 ABG 41 mmHg (35-46); PH ABG 7.51 (7.35-7.45); PO2 ABG 88 mmHg (75-108); SAT O2 ABG 97 % (92-99)
[2016-08-29 10:06] LABS: FIO2 ABG 40%
[2016-08-29 10:07] LABS: FIO2 ABG 40%
--- NOTE | 2016-08-29 11:03 | RAD ---
Examination: Single frontal view chest History: History of respiratory failure Comparison: 08/25/2016 Findings The ET tube tip is identified in the distal trachea at the level of the jennifer. A left-sided PICC line is unchanged. The cardiomediastinal silhouette grossly appears unremarkable. Interval mild improvement in patchy right lung base airspace opacities. Unchanged left lung base airspace opacities likely pneumonia or atelectasis. Impression: 1. ET tube, left-sided PICC line again identified. 2. Minimal improved right lung base infiltrates. Unchanged left lung base infiltrates.
--- NOTE | 2016-08-29 11:23 | RAD ---
Examination: Single frontal view of the abdomen History: History of abdominal distention Comparison: 08/26/2016 Findings: Gastrostomy tube projects in the left upper quadrant of the abdomen is unchanged. Unremarkable bowel gas pattern. Feces and gas noted in the rectum. Impression: Unremarkable bowel gas pattern.
[2016-08-29] MEDS: IV 1/2 NORMAL SALINE 1,000 ML IV SCH (11:32)
[2016-08-29] MEDS: LEVETIRACETAM 500 MG in IV NORMAL SALINE 100ML 100 ML IV SCH ×2 (11:34→21:27)
[2016-08-29] MEDS: LEVOTHYROXINE SODIUM 50 MCG in IV NORMAL SALINE 50ML 5 ML IVP SCH (11:35)
--- NOTE | 2016-08-29 12:40 | PDOC ---
PULMONARY PROGRESS NOTES Subjective off sedation and levo, appears more alert Vitals Vital Signs Date Time Temp Pulse Resp B/P Pulse Ox O2 Delivery O2 Flow Rate FiO2 08/29/16 11:05 100 Ventilator 08/29/16 09:27 18 08/29/16 06:00 92 115/83 08/29/16 04:00 97.9 97.9 08/28/16 08:00 5.0 Lungs: Clear Cardiovascular: S1, S2 Abdomen: Soft Extremities: Other (some edema) Skin: Warm Labs Laboratory Tests Test 08/27/16 17:32 08/27/16 23:54 08/28/16 05:30 08/28/16 05:44 Glucose (Fingerstick) 235mg/dL (70-99) 282mg/dL (70-99) 360mg/dL (70-99) White Blood Count 15.7x10^3/uL (4.0-11.0) Red Blood Count 2.16x10^6/uL (4.30-5.70) Hemoglobin 7.3g/dL (13.0-17.5) Hematocrit 22.0% (39.0-53.0) Mean Corpuscular Volume 102fL (79-100) Mean Corpuscular Hemoglobin 34pg (25-35) Mean Corpuscular Hemoglobin Concent 33g/dL (31-37) Red Cell Distribution Width 14.2% (11.5-14.5) Platelet Count 77x10^3/uL (140-400) Neutrophils (%) (Auto) 87% (31-73) Lymphocytes (%) (Auto) 10% (24-48) Monocytes (%) (Auto) 2% (0-9) Eosinophils (%) (Auto) 1% (0-3) Basophils (%) (Auto) 1% (0-3) Neutrophils # (Auto) 13.6x10^3uL (1.8-7.7) Lymphocytes # (Auto) 1.6x10^3/uL (1.0-4.8) Monocytes # (Auto) 0.4x10^3/uL (0.0-1.1) Eosinophils # (Auto) 0.1x10^3/uL (0.0-0.7) Basophils # (Auto) 0.1x10^3/uL (0.0-0.2) Segmented Neutrophils % 60% (35-66) Band Neutrophils % 29% (0-9) Lymphocytes % 3% (24-48) Monocytes % 1% (0-10) Metamyelocytes % 3% (0-0) Myelocytes % 4% (0-0) Nucleated Red Blood Cells 5 Platelet Estimate Decreased (ADEQUATE) Polychromasia Slight Hypochromasia Slight Anisocytosis Slight Sodium Level 143mmol/L (136-145) Potassium Level 3.6mmol/L (3.5-5.1) Chloride Level 106mmol/L (98-107) Carbon Dioxide Level 32mmol/L (21-32) Anion Gap 5 (6-14) Blood Urea Nitrogen 26mg/dL (8-26) Creatinine 1.0mg/dL (0.7-1.3) Estimated GFR (Cockcroft-Gault) 93.9 Glucose Level 375mg/dL (70-99) Calcium Level 7.1mg/dL (8.5-10.1) Test 08/28/16 08:00 08/28/16 17:46 08/29/16 00:33 08/29/16 05:57 O2 Saturation 98% (92-99) Arterial Blood pH 7.48 (7.35-7.45) Arterial Blood pCO2 at Patient Temp 44mmHg (35-46) Arterial Blood pO2 at Patient Temp 103mmHg (75-108) Arterial Blood HCO3 32mmol/L (21-28) Arterial Blood Base Excess 7mmol/L (-3-3) FiO2 40 Glucose (Fingerstick) 307mg/dL (70-99) 318mg/dL (70-99) 328mg/dL (70-99) Test 08/29/16 08:00 08/29/16 09:48 O2 Saturation 97% (92-99) 97% (92-99) Arterial Blood pH 7.52 (7.35-7.45) 7.51 (7.35-7.45) Arterial Blood pCO2 at Patient Temp 39mmHg (35-46) 41mmHg (35-46) Arterial Blood pO2 at Patient Temp 98mmHg (75-108) 88mmHg (75-108) Arterial Blood HCO3 31mmol/L (21-28) 32mmol/L (21-28) Arterial Blood Base Excess 8mmol/L (-3-3) 8mmol/L (-3-3) FiO2 40% 40% Laboratory Tests Test 08/28/16 17:46 08/29/16 00:33 08/29/16 05:57 08/29/16 08:00 Glucose (Fingerstick) 307mg/dL (70-99) 318mg/dL (70-99) 328mg/dL (70-99) O2 Saturation 97% (92-99) Arterial Blood pH 7.52 (7.35-7.45) Arterial Blood pCO2 at Patient Temp 39mmHg (35-46) Arterial Blood pO2 at Patient Temp 98mmHg (75-108) Arterial Blood HCO3 31mmol/L (21-28) Arterial Blood Base Excess 8mmol/L (-3-3) FiO2 40% Test 08/29/16 09:48 O2 Saturation 97% (92-99) Arterial Blood pH 7.51 (7.35-7.45) Arterial Blood pCO2 at Patient Temp 41mmHg (35-46) Arterial Blood pO2 at Patient Temp 88mmHg (75-108) Arterial Blood HCO3 32mmol/L (21-28) Arterial Blood Base Excess 8mmol/L (-3-3) FiO2 40% Medications Active Scripts Medications Dose Route/Sig Days Date Category Milk Of Magnesia (Magnesium Hydroxide) 2,400 Mg/10 Ml Oral.susp 2,400 Mg PO DAILY PRN 08/21/15 Reported Dulcolax (Bisacodyl) 10 Mg Supp.rect 10 Mg RC PRN DAILY PRN 08/21/15 Reported Aspirin 325 Mg Tablet 1 Tab PEG DAILY 08/02/15 Reported Tylenol (Acetaminophen) 325 Mg Tablet 2 Tab PO PRN Q6HRS PRN 08/02/15 Reported Vitamin B Complex 1 Each Tablet 1 Tab PO DAILY 07/25/15 Reported Vitamin D3 (Cholecalciferol (Vitamin D3)) 1,000 Unit Tablet 2,000 Unit PO DAILY 07/25/15 Reported Keppra (Levetiracetam) 500 Mg Tablet 500 Mg PO BID 07/25/15 Reported Impression . IMPRESSION: 1. Acute hypoxic respiratory failure secondary septic shock 2. Septic shock cultures so far negative 3. Abnormal chest x-ray with initial x-ray showing infiltrate 4. Acute severe metabolic acidosis with severe lactic acidosis secondary to sepsis/septic shock. MAHAD contributing to metabolic acidosis, improved 5. Hematuria 6. Urinary tract infection. 7. Coagulopathy, most likely related to early disseminated intravascular coagulation. 8. Underlying Down's syndrome 9. Dysphagia S/P PEG Plan . did not do well on trail Getting closer evry day to extubation not tolerating tube feeding will start PPN d/c levo decrease steroids ERINN HORN MD Aug 29, 2016 12:40
--- NOTE | 2016-08-29 12:59 | PDOC ---
PROGRESS NOTES Chief Complaint Chief Complaint 0. Resp failure on Vent 1. Severe SEPSIS infectious in origin (PNA) with HIGH LACTATE and ORGAN dysfunction (HYPOTENSION) 2. PNEUMONIA, bed bound, gram pos, gram neg, anaerobes, ASPIRATION highly likely 3. BED bound, non verbal, hx down's hx CVA 4. DYsphagia, indwelling PEG 5. OLiguric renal failure 6. MAHAD, vasomotor 7. GAp metabolic acidosis, recent vomiting, severe sepsis 8. hypothyroidism 9. down syndrome History of Present Illness History of Present Illness Patient seen in ICU. On ventilator: Sedation off other than low dose Fentanyl Eyes open again today DW RN Pt did not have a optimal weaning trial. PS 08/11 Reviewed labs Reviewed Notes AC/ 8; TV 400; 40% FiO2; PEEP 5; Sat 100%. Vitals Vitals Vital Signs Date Time Temp Pulse Resp B/P Pulse Ox O2 Delivery O2 Flow Rate FiO2 08/29/16 11:05 100 Ventilator 08/29/16 09:27 18 08/29/16 06:00 92 115/83 08/29/16 04:00 97.9 97.9 08/28/16 08:00 5.0 Physical Exam Physical Exam intubated General: Other (SEDATED) Heart: Regular rate Lungs: Clear Abdomen: Normal bowel sounds, Soft Extremities: No clubbing Skin: No breakdown Labs LABS Laboratory Tests Test 08/28/16 17:46 08/29/16 00:33 08/29/16 05:57 08/29/16 08:00 Glucose (Fingerstick) 307mg/dL (70-99) 318mg/dL (70-99) 328mg/dL (70-99) O2 Saturation 97% (92-99) Arterial Blood pH 7.52 (7.35-7.45) Arterial Blood pCO2 at Patient Temp 39mmHg (35-46) Arterial Blood pO2 at Patient Temp 98mmHg (75-108) Arterial Blood HCO3 31mmol/L (21-28) Arterial Blood Base Excess 8mmol/L (-3-3) FiO2 40% Test 08/29/16 09:48 O2 Saturation 97% (92-99) Arterial Blood pH 7.51 (7.35-7.45) Arterial Blood pCO2 at Patient Temp 41mmHg (35-46) Arterial Blood pO2 at Patient Temp 88mmHg (75-108) Arterial Blood HCO3 32mmol/L (21-28) Arterial Blood Base Excess 8mmol/L (-3-3) FiO2 40% Assessment and Plan Assessmemt and Plan Problems Medical Problems: (1) HAP (hospital-acquired pneumonia) Status: Acute (2) Pneumonia Status: Acute 0. Resp failure on Vent 1. Severe SEPSIS infectious in origin (PNA) with HIGH LACTATE and ORGAN dysfunction (HYPOTENSION) 2. PNEUMONIA, bed bound, gram pos, gram neg, anaerobes, ASPIRATION highly likely 3. BED bound, non verbal, hx down's hx CVA 4. DYsphagia, indwelling PEG 5. OLiguric renal failure 6. MAHAD, vasomotor 7. GAp metabolic acidosis, recent vomiting, severe sepsis 8. hypothyroidism 9. down syndrome Plan Weaning trial again tomorrow ICU monitoring Recheck labs IV antibx Home meds Prognosis guarded Problems: Comment Review of Relevant I have reviewed the following items kassie (where applicable) has been applied. Labs Laboratory Tests Test 08/27/16 17:32 08/27/16 23:54 08/28/16 05:30 08/28/16 05:44 Glucose (Fingerstick) 235mg/dL (70-99) 282mg/dL (70-99) 360mg/dL (70-99) White Blood Count 15.7x10^3/uL (4.0-11.0) Red Blood Count 2.16x10^6/uL (4.30-5.70) Hemoglobin 7.3g/dL (13.0-17.5) Hematocrit 22.0% (39.0-53.0) Mean Corpuscular Volume 102fL (79-100) Mean Corpuscular Hemoglobin 34pg (25-35) Mean Corpuscular Hemoglobin Concent 33g/dL (31-37) Red Cell Distribution Width 14.2% (11.5-14.5) Platelet Count 77x10^3/uL (140-400) Neutrophils (%) (Auto) 87% (31-73) Lymphocytes (%) (Auto) 10% (24-48) Monocytes (%) (Auto) 2% (0-9) Eosinophils (%) (Auto) 1% (0-3) Basophils (%) (Auto) 1% (0-3) Neutrophils # (Auto) 13.6x10^3uL (1.8-7.7) Lymphocytes # (Auto) 1.6x10^3/uL (1.0-4.8) Monocytes # (Auto) 0.4x10^3/uL (0.0-1.1) Eosinophils # (Auto) 0.1x10^3/uL (0.0-0.7) Basophils # (Auto) 0.1x10^3/uL (0.0-0.2) Segmented Neutrophils % 60% (35-66) Band Neutrophils % 29% (0-9) Lymphocytes % 3% (24-48) Monocytes % 1% (0-10) Metamyelocytes % 3% (0-0) Myelocytes % 4% (0-0) Nucleated Red Blood Cells 5 Platelet Estimate Decreased (ADEQUATE) Polychromasia Slight Hypochromasia Slight Anisocytosis Slight Sodium Level 143mmol/L (136-145) Potassium Level 3.6mmol/L (3.5-5.1) Chloride Level 106mmol/L (98-107) Carbon Dioxide Level 32mmol/L (21-32) Anion Gap 5 (6-14) Blood Urea Nitrogen 26mg/dL (8-26) Creatinine 1.0mg/dL (0.7-1.3) Estimated GFR (Cockcroft-Gault) 93.9 Glucose Level 375mg/dL (70-99) Calcium Level 7.1mg/dL (8.5-10.1) Test 08/28/16 08:00 08/28/16 17:46 08/29/16 00:33 08/29/16 05:57 O2 Saturation 98% (92-99) Arterial Blood pH 7.48 (7.35-7.45) Arterial Blood pCO2 at Patient Temp 44mmHg (35-46) Arterial Blood pO2 at Patient Temp 103mmHg (75-108) Arterial Blood HCO3 32mmol/L (21-28) Arterial Blood Base Excess 7mmol/L (-3-3) FiO2 40 Glucose (Fingerstick) 307mg/dL (70-99) 318mg/dL (70-99) 328mg/dL (70-99) Test 08/29/16 08:00 08/29/16 09:48 O2 Saturation 97% (92-99) 97% (92-99) Arterial Blood pH 7.52 (7.35-7.45) 7.51 (7.35-7.45) Arterial Blood pCO2 at Patient Temp 39mmHg (35-46) 41mmHg (35-46) Arterial Blood pO2 at Patient Temp 98mmHg (75-108) 88mmHg (75-108) Arterial Blood HCO3 31mmol/L (21-28) 32mmol/L (21-28) Arterial Blood Base Excess 8mmol/L (-3-3) 8mmol/L (-3-3) FiO2 40% 40% Laboratory Tests Test 08/28/16 17:46 08/29/16 00:33 08/29/16 05:57 08/29/16 08:00 Glucose (Fingerstick) 307mg/dL (70-99) 318mg/dL (70-99) 328mg/dL (70-99) O2 Saturation 97% (92-99) Arterial Blood pH 7.52 (7.35-7.45) Arterial Blood pCO2 at Patient Temp 39mmHg (35-46) Arterial Blood pO2 at Patient Temp 98mmHg (75-108) Arterial Blood HCO3 31mmol/L (21-28) Arterial Blood Base Excess 8mmol/L (-3-3) FiO2 40% Test 08/29/16 09:48 O2 Saturation 97% (92-99) Arterial Blood pH 7.51 (7.35-7.45) Arterial Blood pCO2 at Patient Temp 41mmHg (35-46) Arterial Blood pO2 at Patient Temp 88mmHg (75-108) Arterial Blood HCO3 32mmol/L (21-28) Arterial Blood Base Excess 8mmol/L (-3-3) FiO2 40% Microbiology 08/23/16 Blood Culture - Final, Complete NO GROWTH AFTER 5 DAYS 08/23/16 Urine Culture - Final, Complete 08/23/16 Urine Culture Result 1 (SHANON) - Final, Complete 08/23/16 Antimicrobic Susceptibility - Final, Complete Medications Current Medications Sodium Chloride 1,000 ml @ 1,000 mls/hr 1X ONCE IV Last administered on t 11:16; Start 08/23/16 at 11:15; Stop 08/23/16 at 12:14; Status DC Sodium Chloride (Iv Sodium Chloride 0.9% 1000ml Bag) 1,000 ml @ 1,000 mls/hr 1X ONCE IV Last administered on 08/23/16 11:30; Start 08/23/16 at 11:30; Stop 08/23/16 at 12:29; Status DC Vancomycin HCl (Vanco Per Pharmacy) 1 each PRN DAILY PRN MC SEE COMMENTS Last administered on 08/25/16 13:04; Start 08/23/16 at 11:30; Stop 08/26/16 at 08:18; Status DC Piperacillin Sod/ Tazobactam Sod 1 each 1 each PRN DAILY PRN MC SEE COMMENTS; Start 08/23/16 at 11:30; Stop 08/25/16 at 09:54; Status DC Levofloxacin/ Dextrose 100 ml @ 100 mls/hr 1X ONCE IV Last administered on 12:58; Start 08/23/16 at 11:30; Stop 08/23/16 at 12:29; Status DC Piperacillin Sod/ Tazobactam Sod 4.5 gm/Sodium Chloride 100 ml @ 200 mls/hr 1X ONCE IV Last administered on 08/23/16 12:00; Start 08/23/16 at 12:00; Stop 08/23/16 at 12:29; Status DC Vancomycin HCl 1.5 gm/Sodium Chloride 500 ml @ 250 mls/hr 1X ONCE IV Last administered on 08/23/16 12:30; Start 08/23/16 at 12:30; Stop 08/23/16 at 14:29 ; Status DC Sodium Chloride 1,000 ml @ 1,000 mls/hr 1X ONCE IV Last administered on 12:46; Start 08/23/16 at 12:30; Stop 08/23/16 at 13:29; Status DC Piperacillin Sod/ Tazobactam Sod 3.375 gm/Sodium Chloride 50 ml @ 100 mls/hr Q6HRS IV Last administered on 08/29/16 05:58; Start 08/23/16 at 18:00 Vancomycin HCl/ Sodium Chloride (Iv Sodium Chloride 0.9% 250ml) 250 ml @ 250 mls/hr Q24H IV ; Start 08/24/16 at 13:00; Status Cancel Vancomycin HCl 1 each 1X ONCE MC ; Start 08/25/16 at 12:30; Stop 08/25/16 at 12: 31; Status DC Labetalol HCl (Normodyne) 10 mg PRN Q2HR PRN IVP HYPERTENSION, SEE COMMENTS; Start 08/23/16 at 15:45 Aspirin (Luis Armando Aspirin) 325 mg DAILY PEG Last administered on 08/29/16 07:44; Start 08/24/16 at 09:00 Bisacodyl (Dulcolax Supp) 10 mg PRN DAILY PRN RC CONSTIPATION; Start 08/23/16 at 15:45 Vitamin D (Vitamin D3) 2,000 unit DAILY PO Last administered on 08/29/16 07:44 ; Start 08/24/16 at 09:00 Levetiracetam (Keppra) 500 mg BID PO ; Start 08/23/16 at 21:00; Stop 08/23/16 at 21:00; Status DC Vitamin B Complex (Hector B) 1 tab DAILY PO Last administered on 08/29/16 07:44; Start 08/24/16 at 09:00 Magnesium Hydroxide (Milk Of Magnesia) 2,400 mg PRN DAILY PRN PO CONSTIPATION; Start 08/23/16 at 15:45 Acetaminophen 500 mg 500 mg PRN Q6HRS PRN PO MILD PAIN / TEMP; Start 08/23/16 at 15:45 Levetiracetam/ Sodium Chloride (Keppra/Iv Sodium Chloride 0.9% 100ml) 105 ml @ 400 mls/hr Q12HR IV Last administered on 08/29/16 11:34; Start 08/23/16 at 21: 00 Pantoprazole Sodium (Protonix Vial) 40 mg DAILYAC IVP Last administered on 07:44; Start 08/24/16 at 07:30 Heparin Sodium (Porcine) 5000 unit 5,000 unit Q8HRS SQ ; Start 08/23/16 at 22:00 ; Stop 08/23/16 at 22:00; Status DC Sodium Bicarbonate/ Dextrose 1,150 ml @ 150 mls/hr Q7H40M IV Last administered on 08/25/16 08:05; Start 08/23/16 at 16:30; Stop 08/25/16 at 10:35; Status DC Sodium Bicarbonate 50 meq 1X ONCE IV Last administered on 08/23/16 16:24; Start 08/23/16 at 16:15; Stop 08/23/16 at 16:17; Status DC Albuterol/ Ipratropium 3 ml 3 ml RTQID NEB Last administered on 08/29/16 11:05 ; Start 08/23/16 at 20:00 Vancomycin HCl 750 mg/Sodium Chloride 250 ml @ 250 mls/hr Q24H IV Last administered on 08/24/16 12:15; Start 08/24/16 at 13:00; Stop 08/25/16 at 12:55 ; Status DC Norepinephrine Bitartrate 8 mg/ Sodium Chloride 258 ml @ 0 mls/hr CONT PRN IV SEE I/O RECORD Last administered on 08/25/16 00:28; Start 08/23/16 at 18:15 Sodium Chloride (Iv Sodium Chloride 0.9% 1000ml Bag) 1,000 ml @ 500 mls/hr Q2H IV Last administered on 08/23/16 17:00; Start 08/23/16 at 18:30; Stop at 20:29; Status DC Hydrocortisone Sodium Succinate (Solu-Cortef) 100 mg Q8HRS IV Last administered on 08/26/16 14:54; Start 08/23/16 at 22:30; Stop 08/26/16 at 16:49; Status DC Succinylcholine Chloride (Anectine) 200 mg STK-MED ONCE .ROUTE ; Start 08/24/16 at 04:15; Stop 08/24/16 at 04:16; Status DC Etomidate 20 mg 20 mg STK-MED ONCE IV ; Start 08/24/16 at 04:15; Stop 08/24/16 at 04:16; Status DC Fentanyl Citrate (Fentanyl 600 Mcg/30 ml [employer]) 30 ml @ 0 mls/hr CONT PRN IV PROTOCOL Last administered on 08/29/16 08:57; Start 08/24/16 at 04:45 Fentanyl Citrate (Fentanyl 2ml Vial) 25 mcg PRN Q1HR PRN IV COMM Last administered on 08/29/16 07:44; Start 08/24/16 at 04:45 Fentanyl Citrate (Fentanyl 2ml Vial) 50 mcg PRN Q1HR PRN IV COMM; Start at 04:45 Chlorhexidine Gluconate 15 ml 15 ml BID MM Last administered on 08/29/16 07:45 ; Start 08/24/16 at 09:00 Midazolam HCl 100 ml @ 0 mls/hr CONT PRN IV PER PROTOCOL Last administered on 10:50; Start 08/24/16 at 04:45 Midazolam HCl 100 ml @ As Directed STK-MED ONCE IV ; Start 08/24/16 at 04:52; Stop 08/24/16 at 04:53; Status DC Sodium Chloride 1,000 ml @ 150 mls/hr Q6H40M IV Last administered on 06:13; Start 08/24/16 at 05:45; Stop 08/24/16 at 09:59; Status DC Vasopressin 40 unit/Dextrose 102 ml @ 6 mls/hr 1X ONCE IV Last administered on 08/24/16 06:12; Start 08/24/16 at 06:00; Stop 08/24/16 at 20:00; Status DC Phenylephrine HCl 20 mg/Sodium Chloride 252 ml @ 0 mls/hr CONT PRN IV SEE I/O RECORD Last administered on 08/24/16 07:28; Start 08/24/16 at 05:45 Albumin Human 500 ml @ 125 mls/hr 1X ONCE IV Last administered on 08/24/16 06:20; Start 08/24/16 at 05:45; Stop 08/24/16 at 09:44; Status DC Micafungin Sodium 100 mg/Dextrose 100 ml @ 100 mls/hr Q24H IV Last administered on 08/26/16 09:29; Start 08/24/16 at 09:00; Stop 08/27/16 at 07:37; Status DC Epinephrine HCl/ Sodium Chloride (Adrenalin/Iv Sodium Chloride 0.9% 250ml) 254 ml @ 0 mls/hr CONT PRN IV SEE I/O RECORD; Start 08/24/16 at 07:30 Epinephrine HCl (Adrenalin) 30 mg STK-MED ONCE .ROUTE ; Start 08/23/16 at 12:00 ; Stop 08/24/16 at 10:38; Status DC Epinephrine HCl 4 mg STK-MED ONCE .ROUTE ; Start 08/23/16 at 12:00; Stop at 10:38; Status DC Sodium Bicarbonate 100 meq 100 meq STK-MED ONCE .ROUTE ; Start 08/23/16 at 12:00 ; Stop 08/24/16 at 10:38; Status DC Levothyroxine Sodium 50 mcg/ Sodium Chloride 5 ml @ 100 mls/hr DAILY IVP Last administered on 08/29/16 11:35; Start 08/24/16 at 15:00 Phytonadione 10 mg/Sodium Chloride 51 ml @ 102 mls/hr 1X ONCE IV Last administered on 08/24/16 15:14; Start 08/24/16 at 14:30; Stop 08/24/16 at 14:59 ; Status DC Vasopressin/ Dextrose (Vasostrict) 102 ml @ 6 mls/hr CONT PRN IV SEE I/O RECORD Last administered on 08/26/16 05:44; Start 08/24/16 at 18:15 Acetaminophen 650 mg 650 mg PRN Q6HRS PRN PEG MILD PAIN / TEMP Last administered on 08/24/16 20:52; Start 08/24/16 at 20:45 Levofloxacin/ Dextrose (LEVAQUIN 500mg PREMIX) 100 ml @ 100 mls/hr 1X ONCE IV Last administered on 08/25/16 08:06; Start 08/25/16 at 08:00; Stop 08/25/16 at 08:59; Status DC Insulin Aspart (Novolog) 0-9 UNITS TIDWMEALS SQ Last administered on 08/25/16 17:23; Start 08/25/16 at 08:00; Stop 08/25/16 at 19:32; Status DC Dextrose 12.5 gm PRN Q15MIN PRN IV SEE COMMENTS; Start 08/25/16 at 07:30 Insulin Aspart 10 units 10 units 1X ONCE SQ Last administered on 08/25/16 08: 08; Start 08/25/16 at 08:00; Stop 08/25/16 at 08:01; Status DC Sodium Chloride 1,000 ml @ 100 mls/hr Q10H IV Last administered on 08/29/16 11 :32; Start 08/25/16 at 11:00 Potassium Chloride/Sodium Chloride (Iv Sodium Chloride 0.45%) 1,015 ml @ 75 mls /hr 1X ONCE IV Last administered on 08/25/16 10:55; Start 08/25/16 at 11:00; Stop 08/26/16 at 00:31; Status DC Insulin Aspart 10 units 10 units 1X ONCE SQ Last administered on 08/25/16 12: 42; Start 08/25/16 at 12:45; Stop 08/25/16 at 12:46; Status DC Vancomycin HCl/ Sodium Chloride (Iv Sodium Chloride 0.9% 250ml) 250 ml @ 250 mls/hr Q18H IV Last administered on 08/26/16 06:39; Start 08/25/16 at 13:00; Stop 08/26/16 at 08:18; Status DC Insulin Aspart 0-9 UNITS Q6HRS SQ Last administered on 08/29/16 06:05; Start at 00:00 Levofloxacin/ Dextrose 100 ml @ 100 mls/hr 1X ONCE IV Last administered on 09:28; Start 08/26/16 at 09:30; Stop 08/26/16 at 10:29; Status DC Potassium Chloride/Sodium Chloride (Iv Sodium Chloride 0.45%) 1,015 ml @ 75 mls /hr 1X ONCE IV Last administered on 08/26/16 15:23; Start 08/26/16 at 11:00; Stop 08/27/16 at 00:31; Status DC Hydrocortisone Sodium Succinate 100 mg 100 mg BID IV Last administered on 07:44; Start 08/27/16 at 09:00 Amino Acids/ Electrolytes/ Dextrose 1,000 ml @ 80 mls/hr [id number] IV Last administered on 08/29/16 05:59; Start 08/27/16 at 12:30 Potassium Chloride (KCl Premix 20meq) 50 ml @ 50 mls/hr 1X ONCE IV Last administered on 08/27/16 15:29; Start 08/27/16 at 12:30; Stop 08/27/16 at 13:29; Status DC Insulin Aspart (Novolog) 15 units 1X ONCE SQ Last administered on 08/28/16 07: 13; Start 08/28/16 at 07:15; Stop 08/28/16 at 07:16; Status DC Active Scripts Active Reported Milk Of Magnesia (Magnesium Hydroxide) 2,400 Mg/10 Ml Oral.susp 2,400 Mg PO DAILY PRN Dulcolax (Bisacodyl) 10 Mg Supp.rect 10 Mg RC PRN DAILY PRN Aspirin 325 Mg Tablet 1 Tab PEG DAILY Tylenol (Acetaminophen) 325 Mg Tablet 2 Tab PO PRN Q6HRS PRN Vitamin B Complex 1 Each Tablet 1 Tab PO DAILY Vitamin D3 (Cholecalciferol (Vitamin D3)) 1,000 Unit Tablet 2,000 Unit PO DAILY Keppra (Levetiracetam) 500 Mg Tablet 500 Mg PO BID Vitals/I & O Vital Sign - Last 24 Hours 08/28/16 08/28/16 08/28/16 08/28/16 13:00 13:40 14:00 15:00 Pulse 88 84 88 Resp 8 9 8 B/P 95/72 104/70 116/76 Pulse Ox 99 100 100 100 O2 Delivery Ventilator Ventilator Ventilator Ventilator 08/28/16 08/28/16 08/28/16 08/28/16 15:26 16:00 16:00 17:00 Temp 99.0 99.0 Pulse 100 96 Resp 13 14 B/P 110/65 110/71 Pulse Ox 100 100 100 O2 Delivery Ventilator Ventilator Mechanical Ventilator Ventilator 08/28/16 08/28/16 08/28/16 08/28/16 18:00 19:00 20:00 20:00 Temp 98.2 98.2 Pulse 96 83 86 Resp 31 12 10 B/P 105/65 89/48 86/57 Pulse Ox 100 100 100 O2 Delivery Ventilator Ventilator Ventilator Mechanical Ventilator 08/28/16 08/28/16 08/28/16 08/28/16 21:00 22:00 23:00 23:13 Pulse 90 92 96 Resp 12 12 14 B/P 98/57 95/58 112/74 Pulse Ox 100 100 100 100 O2 Delivery Ventilator Ventilator Ventilator Ventilator 08/29/16 08/29/16 08/29/16 08/29/16 00:00 00:00 01:00 01:37 Temp 99.1 99.1 Pulse 85 100 Resp 12 14 B/P 124/77 119/79 Pulse Ox 99 100 100 O2 Delivery Mechanical Ventilator Ventilator Ventilator Ventilator 08/29/16 08/29/16 08/29/16 08/29/16 02:00 03:00 03:56 04:00 Temp 97.9 97.9 Pulse 102 96 90 Resp 14 14 10 B/P 119/79 119/79 126/76 Pulse Ox 100 100 100 100 O2 Delivery Ventilator Ventilator Ventilator Ventilator 08/29/16 08/29/16 08/29/16 08/29/16 04:11 05:00 06:00 06:06 Pulse 96 92 Resp 10 12 B/P 119/82 115/83 Pulse Ox 100 100 100 O2 Delivery Mechanical Ventilator Ventilator Ventilator Ventilator 08/29/16 08/29/16 08/29/16 08/29/16 07:06 07:44 08:14 08:57 Resp 18 16 22 Pulse Ox 100 100 99 100 O2 Delivery Ventilator Ventilator Ventilator Ventilator 08/29/16 08/29/16 08/29/16 09:10 09:27 11:05 Resp 18 Pulse Ox 100 99 100 O2 Delivery Ventilator Ventilator Ventilator Intake and Output 08/28/16 08/28/16 08/29/16 15:00 23:00 07:00 Intake Total 160 ml 2049 ml 2354 ml Output Total 1180 ml 490 ml 1925 ml Balance -1020 ml 1559 ml 429 ml JAMEE GUZMAN III DO Aug 29, 2016 12:59
[2016-08-29] MEDS ORDERED: PROPOFOL 100 ML IV ONE (16:23)
[2016-08-29] MEDS ORDERED: PROPOFOL 100 ML IV PRN (18:00)
[2016-08-30] VITALS (24 sets, daily range): BP systolic 82–116; BP diastolic 53–74
[2016-08-30] MEDS: CHLORHEXIDINE 0.12% 15 ML MOUTHWASH. MM SCH ×3 (00:21→21:00)
[2016-08-30] MEDS: INSULIN ASPART 300 UNITS/3 ML INSULN.PEN SQ SCH ×4 (00:22→18:21)
[2016-08-30] MEDS: PIPERACILLIN/TAZOBACTAM 3.375 GM in IV NORMAL SALINE 50ML 50 ML IV SCH ×5 (00:24→23:59)
[2016-08-30] MEDS: FENTANYL STANDARD PCA 30 ML IV PRN (04:54)
[2016-08-30 06:50] LABS: BASO # 0.1 x10^3/uL (0.0-0.2); BASO % 0 % (0-3); EOS % 0 % (0-3); HEMATOCRIT 22.2 % (39.0-53.0); HEMOGLOBIN 7.2 g/dL (13.0-17.5); LYMPH # 1.3 x10^3/uL (1.0-4.8); LYMPH % 8 % (24-48); MEAN CORPUSCULAR HEMOGLOBIN 34 pg (25-35); MEAN CORPUSCULAR HGB CONC 33 g/dL (31-37); MEAN CORPUSCULAR VOLUME 104 fL (79-100); MONO % 5 % (0-9); NEUT % 87 % (31-73); PLATELET COUNT 67 x10^3/uL (140-400); RED BLOOD COUNT 2.13 x10^6/uL (4.30-5.70); RED CELL DISTRIBUTION WIDTH 14.4 % (11.5-14.5); WHITE BLOOD COUNT 16.9 x10^3/uL (4.0-11.0)
[2016-08-30 07:15] LABS: CALCIUM 7.1 mg/dL (8.5-10.1); CREATININE 0.9 mg/dL (0.7-1.3)
[2016-08-30] MEDS ORDERED: INSULIN ASPART 300 UNITS/3 ML INSULN.PEN SQ ONE (07:15)
[2016-08-30 07:20] LABS: POTASSIUM 2.7 mmol/L (3.5-5.1)
[2016-08-30] MEDS: IPRATRPIUM/ALBUTEROL 0.5/2.5MG 3 ML NEBU. NEB SCH ×4 (07:20→20:30)
--- NOTE | 2016-08-30 07:46 | PDOC ---
Infectious Disease Note Subjective Subjective Off sedation Off pressors Remains intubated. FiO2 40% G-tube to dependent drainage. No fever last 24 hours ROS ROS GEN: Denies fevers, chills, sweats HEENT: Denies blurred vision, sore throat CV: Denies chest pain RESP: Denies shortness of air, cough GI: Denies n/v/d NEURO: Denies confusion, dizziness MSK: Denies weakness, joint pain/swelling Vital Sign Vital Signs Vital Signs Date Time Temp Pulse Resp B/P Pulse Ox O2 Delivery O2 Flow Rate FiO2 08/30/16 07:20 100 Ventilator 08/30/16 06:33 87 13 116/70 08/30/16 04:54 5.0 08/30/16 03:00 98.6 98.6 Physical Exam PHYSICAL EXAM GENERAL: NAD, Alert HEENT: PERRL, OC/OP NECK: Supple, no JVD, no LN LUNGS: Clear HEART: S1S2, no gallop, no murmur ABD: Soft, NT, no organomegaly, no rebound EXT: No edema, no cyanosis [employer]: Alert, oriented x 3, no focal neurologic deficit SKIN: No rash IV: ok Labs Lab Laboratory Tests Test 08/29/16 08:00 08/29/16 09:48 08/29/16 15:12 08/29/16 18:11 O2 Saturation 97% (92-99) 97% (92-99) Arterial Blood pH 7.52 (7.35-7.45) 7.51 (7.35-7.45) Arterial Blood pCO2 at Patient Temp 39mmHg (35-46) 41mmHg (35-46) Arterial Blood pO2 at Patient Temp 98mmHg (75-108) 88mmHg (75-108) Arterial Blood HCO3 31mmol/L (21-28) 32mmol/L (21-28) Arterial Blood Base Excess 8mmol/L (-3-3) 8mmol/L (-3-3) FiO2 40% 40% Glucose (Fingerstick) 323mg/dL (70-99) 209mg/dL (70-99) Test 08/30/16 00:17 08/30/16 06:32 Glucose (Fingerstick) 298mg/dL (70-99) White Blood Count 16.9x10^3/uL (4.0-11.0) Red Blood Count 2.13x10^6/uL (4.30-5.70) Hemoglobin 7.2g/dL (13.0-17.5) Hematocrit 22.2% (39.0-53.0) Mean Corpuscular Volume 104fL (79-100) Mean Corpuscular Hemoglobin 34pg (25-35) Mean Corpuscular Hemoglobin Concent 33g/dL (31-37) Red Cell Distribution Width 14.4% (11.5-14.5) Platelet Count 67x10^3/uL (140-400) Neutrophils (%) (Auto) 87% (31-73) Lymphocytes (%) (Auto) 8% (24-48) Monocytes (%) (Auto) 5% (0-9) Eosinophils (%) (Auto) 0% (0-3) Basophils (%) (Auto) 0% (0-3) Neutrophils # (Auto) 14.7x10^3uL (1.8-7.7) Lymphocytes # (Auto) 1.3x10^3/uL (1.0-4.8) Monocytes # (Auto) 0.8x10^3/uL (0.0-1.1) Eosinophils # (Auto) 0.0x10^3/uL (0.0-0.7) Basophils # (Auto) 0.1x10^3/uL (0.0-0.2) Sodium Level 149mmol/L (136-145) Potassium Level 2.7mmol/L (3.5-5.1) Chloride Level 109mmol/L (98-107) Carbon Dioxide Level 35mmol/L (21-32) Anion Gap 5 (6-14) Blood Urea Nitrogen 28mg/dL (8-26) Creatinine 0.9mg/dL (0.7-1.3) Estimated GFR (Cockcroft-Gault) 106.0 Glucose Level 390mg/dL (70-99) Calcium Level 7.1mg/dL (8.5-10.1) Objective Assessment Severe Sepsis - improved Hyperglycemia -improved ? early DIC vs sepsis with thrombocytopenia and coagulopathy - stable Hydronephrosis on U/S - May need nephrostomy tubes per urology Acute Resp failure - intubated Lactic acidosis MAHAD with h/o hydronephrosis -better Bandemia/leukocytosis - on Hydrocortisone Hematuria - improved UTI - Proteus H/o granulomas Plan Plan of Care Cont Zosyn F/u cxr Needs CT chest/abd/pelvis when stable UNRULY MENDOZA MD Aug 30, 2016 07:45
[2016-08-30] MEDS: AA 4.25%/CALCIUM/LYTES/D5W 1,000 ML IV SCH ×2 (08:15→20:51)
[2016-08-30] MEDS: HYDROCORTISONE SOD SUCC/PF 100 MG/2 ML VIAL. IV SCH ×2 (08:15→20:45)
[2016-08-30] MEDS: LEVOTHYROXINE SODIUM 50 MCG in IV NORMAL SALINE 50ML 5 ML IVP SCH (08:16)
[2016-08-30] MEDS: LEVETIRACETAM 500 MG in IV NORMAL SALINE 100ML 100 ML IV SCH ×2 (08:16→20:45)
[2016-08-30] MEDS: PANTOPRAZOLE IV PUSH 40 MG VIAL. IVP SCH (08:16)
[2016-08-30] MEDS: IV 1/2 NORMAL SALINE 1,000 ML IV SCH ×2 (08:26→18:18)
[2016-08-30] MEDS: ASPIRIN 325 MG TABLET PEG SCH (09:00)
[2016-08-30] MEDS: VITAMIN B COMPLEX TABLET. PO SCH (09:00)
[2016-08-30] MEDS: CHOLECALCIFEROL (VITAMIN D3) 1,000 UNIT TABLET PO SCH (09:00)
--- NOTE | 2016-08-30 09:25 | PDOC ---
PULMONARY PROGRESS NOTES Subjective off sedation and levo, opens eyes, does not follow commands/ baseline Vitals Vital Signs Date Time Temp Pulse Resp B/P Pulse Ox O2 Delivery O2 Flow Rate FiO2 08/30/16 07:20 100 Ventilator 08/30/16 06:33 87 13 116/70 08/30/16 04:54 5.0 08/30/16 03:00 98.6 98.6 Lungs: Clear Cardiovascular: S1, S2 Abdomen: Soft Extremities: Other (some edema) Skin: Warm Labs Laboratory Tests Test 08/28/16 11:19 08/28/16 17:46 08/29/16 00:33 08/29/16 05:57 Glucose (Fingerstick) 179mg/dL (70-99) 307mg/dL (70-99) 318mg/dL (70-99) 328mg/dL (70-99) Test 08/29/16 08:00 08/29/16 09:48 08/29/16 15:12 08/29/16 18:11 O2 Saturation 97% (92-99) 97% (92-99) Arterial Blood pH 7.52 (7.35-7.45) 7.51 (7.35-7.45) Arterial Blood pCO2 at Patient Temp 39mmHg (35-46) 41mmHg (35-46) Arterial Blood pO2 at Patient Temp 98mmHg (75-108) 88mmHg (75-108) Arterial Blood HCO3 31mmol/L (21-28) 32mmol/L (21-28) Arterial Blood Base Excess 8mmol/L (-3-3) 8mmol/L (-3-3) FiO2 40% 40% Glucose (Fingerstick) 323mg/dL (70-99) 209mg/dL (70-99) Test 08/30/16 00:17 08/30/16 06:32 Glucose (Fingerstick) 298mg/dL (70-99) White Blood Count 16.9x10^3/uL (4.0-11.0) Red Blood Count 2.13x10^6/uL (4.30-5.70) Hemoglobin 7.2g/dL (13.0-17.5) Hematocrit 22.2% (39.0-53.0) Mean Corpuscular Volume 104fL (79-100) Mean Corpuscular Hemoglobin 34pg (25-35) Mean Corpuscular Hemoglobin Concent 33g/dL (31-37) Red Cell Distribution Width 14.4% (11.5-14.5) Platelet Count 67x10^3/uL (140-400) Neutrophils (%) (Auto) 87% (31-73) Lymphocytes (%) (Auto) 8% (24-48) Monocytes (%) (Auto) 5% (0-9) Eosinophils (%) (Auto) 0% (0-3) Basophils (%) (Auto) 0% (0-3) Neutrophils # (Auto) 14.7x10^3uL (1.8-7.7) Lymphocytes # (Auto) 1.3x10^3/uL (1.0-4.8) Monocytes # (Auto) 0.8x10^3/uL (0.0-1.1) Eosinophils # (Auto) 0.0x10^3/uL (0.0-0.7) Basophils # (Auto) 0.1x10^3/uL (0.0-0.2) Sodium Level 149mmol/L (136-145) Potassium Level 2.7mmol/L (3.5-5.1) Chloride Level 109mmol/L (98-107) Carbon Dioxide Level 35mmol/L (21-32) Anion Gap 5 (6-14) Blood Urea Nitrogen 28mg/dL (8-26) Creatinine 0.9mg/dL (0.7-1.3) Estimated GFR (Cockcroft-Gault) 106.0 Glucose Level 390mg/dL (70-99) Calcium Level 7.1mg/dL (8.5-10.1) Laboratory Tests Test 08/29/16 09:48 08/29/16 15:12 08/29/16 18:11 08/30/16 00:17 O2 Saturation 97% (92-99) Arterial Blood pH 7.51 (7.35-7.45) Arterial Blood pCO2 at Patient Temp 41mmHg (35-46) Arterial Blood pO2 at Patient Temp 88mmHg (75-108) Arterial Blood HCO3 32mmol/L (21-28) Arterial Blood Base Excess 8mmol/L (-3-3) FiO2 40% Glucose (Fingerstick) 323mg/dL (70-99) 209mg/dL (70-99) 298mg/dL (70-99) Test 08/30/16 06:32 White Blood Count 16.9x10^3/uL (4.0-11.0) Red Blood Count 2.13x10^6/uL (4.30-5.70) Hemoglobin 7.2g/dL (13.0-17.5) Hematocrit 22.2% (39.0-53.0) Mean Corpuscular Volume 104fL (79-100) Mean Corpuscular Hemoglobin 34pg (25-35) Mean Corpuscular Hemoglobin Concent 33g/dL (31-37) Red Cell Distribution Width 14.4% (11.5-14.5) Platelet Count 67x10^3/uL (140-400) Neutrophils (%) (Auto) 87% (31-73) Lymphocytes (%) (Auto) 8% (24-48) Monocytes (%) (Auto) 5% (0-9) Eosinophils (%) (Auto) 0% (0-3) Basophils (%) (Auto) 0% (0-3) Neutrophils # (Auto) 14.7x10^3uL (1.8-7.7) Lymphocytes # (Auto) 1.3x10^3/uL (1.0-4.8) Monocytes # (Auto) 0.8x10^3/uL (0.0-1.1) Eosinophils # (Auto) 0.0x10^3/uL (0.0-0.7) Basophils # (Auto) 0.1x10^3/uL (0.0-0.2) Sodium Level 149mmol/L (136-145) Potassium Level 2.7mmol/L (3.5-5.1) Chloride Level 109mmol/L (98-107) Carbon Dioxide Level 35mmol/L (21-32) Anion Gap 5 (6-14) Blood Urea Nitrogen 28mg/dL (8-26) Creatinine 0.9mg/dL (0.7-1.3) Estimated GFR (Cockcroft-Gault) 106.0 Glucose Level 390mg/dL (70-99) Calcium Level 7.1mg/dL (8.5-10.1) Medications Active Scripts Medications Dose Route/Sig Days Date Category Milk Of Magnesia (Magnesium Hydroxide) 2,400 Mg/10 Ml Oral.susp 2,400 Mg PO DAILY PRN 08/21/15 Reported Dulcolax (Bisacodyl) 10 Mg Supp.rect 10 Mg RC PRN DAILY PRN 08/21/15 Reported Aspirin 325 Mg Tablet 1 Tab PEG DAILY 08/02/15 Reported Tylenol (Acetaminophen) 325 Mg Tablet 2 Tab PO PRN Q6HRS PRN 08/02/15 Reported Vitamin B Complex 1 Each Tablet 1 Tab PO DAILY 07/25/15 Reported Vitamin D3 (Cholecalciferol (Vitamin D3)) 1,000 Unit Tablet 2,000 Unit PO DAILY 07/25/15 Reported Keppra (Levetiracetam) 500 Mg Tablet 500 Mg PO BID 07/25/15 Reported Impression . 1. Acute hypoxic respiratory failure secondary septic shock, resolved 2. Septic shock cultures so far negative, resolved 3. Abnormal chest x-ray with initial x-ray showing infiltrate 4. Acute severe metabolic acidosis with severe lactic acidosis secondary to sepsis/septic shock. MAHAD contributing to metabolic acidosis, improved 5. Hematuria 6. Urinary tract infection. 7. Coagulopathy, most likely related to early disseminated intravascular coagulation. 8. Underlying Down's syndrome 9. Dysphagia S/P PEG Plan . d/c fentanyl start CPAP trial Getting closer every day to extubation, possibly today not tolerating tube feeding/ on PPN off levo decrease steroids d/w Dr Scott/ SADA RIVERA MD Aug 30, 2016 09:25
[2016-08-30 10:36] LABS: HCO3 ABG 30 mmol/L (21-28); PCO2 ABG 39 mmHg (35-46); PO2 ABG 105 mmHg (75-108); SAT O2 ABG 98 % (92-99)
[2016-08-30 10:39] LABS: FIO2 ABG 40
[2016-08-30] MEDS: POTASSIUM CHLORIDE 20MEQ 50 ML IV SCH ×2 (11:10→12:00)
--- NOTE | 2016-08-30 12:20 | PDOC ---
Objective: Objective: Per RN - 1 stool documented 08/29. Vital Signs: Vital Signs Date Time Temp Pulse Resp B/P Pulse Ox O2 Delivery O2 Flow Rate FiO2 08/30/16 11:28 98 Venturi Mask 6.0 08/30/16 11:00 90 11 101/58 08/30/16 08:00 99.1 99.1 Labs: Laboratory Tests Test 08/29/16 15:12 08/29/16 18:11 08/30/16 00:17 08/30/16 06:28 Glucose (Fingerstick) 323mg/dL (70-99) 209mg/dL (70-99) 298mg/dL (70-99) 351mg/dL (70-99) Test 08/30/16 12:02 Glucose (Fingerstick) 291mg/dL (70-99) Imaging: [facility] 08/29/16 Impression: Unremarkable bowel gas pattern. PE: GEN: NAD LUNGS: Venturi mask HEART: tachycardic ABD: BS quiet, S/ND/NT, PEG in place NEURO/PSYCH: eyes open, mumbling/moaning softly A/P: Ileus -suppository yesterday, RN received report of stool x [address] -increased residuals w/ feeding - held 08/26, PEG to gravity w/ minimal drainage, KUBs unrevealing Resp failure, leukocytosis -now extubated -- Stool reported - could retry tube feeds, will confirm w/ Dr. Johnson. LUCIO YODER Aug 30, 2016 12:19
--- NOTE | 2016-08-30 14:29 | PDOC ---
PROGRESS NOTES Chief Complaint Chief Complaint Resp failure - now extubated today 1. Severe SEPSIS, pneumonia 2. PNEUMONIA, bed bound, , aspiration 3. Bed bound, non verbal, hx down's, and hx CVA 4. Dysphagia, indwelling PEG 5 MAHAD, vasomotor 6. Gap metabolic acidosis, recent vomiting, severe sepsis 7. hypothyroidism 8. down syndrome History of Present Illness History of Present Illness Patient seen in ICU. extubated today Eyes open, not following commands, DW RN code status changed to DNR on on this admit Vitals Vitals Vital Signs Date Time Temp Pulse Resp B/P Pulse Ox O2 Delivery O2 Flow Rate FiO2 08/30/16 14:00 94 13 102/64 99 Nasal Cannula 2.0 08/30/16 12:00 99.2 99.2 Physical Exam Physical Exam intubated General: Alert, No acute distress, Other ( awake, ) Heart: Regular rate, No murmurs Lungs: Clear Abdomen: Normal bowel sounds, Soft, No tenderness Extremities: No clubbing Skin: No breakdown, No significant lesion Labs LABS Laboratory Tests Test 08/29/16 15:12 08/29/16 18:11 08/30/16 00:17 08/30/16 06:28 Glucose (Fingerstick) 323mg/dL (70-99) 209mg/dL (70-99) 298mg/dL (70-99) 351mg/dL (70-99) Test 08/30/16 06:32 08/30/16 10:20 08/30/16 12:02 White Blood Count 16.9x10^3/uL (4.0-11.0) Red Blood Count 2.13x10^6/uL (4.30-5.70) Hemoglobin 7.2g/dL (13.0-17.5) Hematocrit 22.2% (39.0-53.0) Mean Corpuscular Volume 104fL (79-100) Mean Corpuscular Hemoglobin 34pg (25-35) Mean Corpuscular Hemoglobin Concent 33g/dL (31-37) Red Cell Distribution Width 14.4% (11.5-14.5) Platelet Count 67x10^3/uL (140-400) Neutrophils (%) (Auto) 87% (31-73) Lymphocytes (%) (Auto) 8% (24-48) Monocytes (%) (Auto) 5% (0-9) Eosinophils (%) (Auto) 0% (0-3) Basophils (%) (Auto) 0% (0-3) Neutrophils # (Auto) 14.7x10^3uL (1.8-7.7) Lymphocytes # (Auto) 1.3x10^3/uL (1.0-4.8) Monocytes # (Auto) 0.8x10^3/uL (0.0-1.1) Eosinophils # (Auto) 0.0x10^3/uL (0.0-0.7) Basophils # (Auto) 0.1x10^3/uL (0.0-0.2) Sodium Level 149mmol/L (136-145) Potassium Level 2.7mmol/L (3.5-5.1) Chloride Level 109mmol/L (98-107) Carbon Dioxide Level 35mmol/L (21-32) Anion Gap 5 (6-14) Blood Urea Nitrogen 28mg/dL (8-26) Creatinine 0.9mg/dL (0.7-1.3) Estimated GFR (Cockcroft-Gault) 106.0 Glucose Level 390mg/dL (70-99) Calcium Level 7.1mg/dL (8.5-10.1) O2 Saturation 98% (92-99) Arterial Blood pH 7.50 (7.35-7.45) Arterial Blood pCO2 at Patient Temp 39mmHg (35-46) Arterial Blood pO2 at Patient Temp 105mmHg (75-108) Arterial Blood HCO3 30mmol/L (21-28) Arterial Blood Base Excess 6mmol/L (-3-3) FiO2 40 Glucose (Fingerstick) 291mg/dL (70-99) Assessment and Plan Assessmemt and Plan off vent, cont current pt and ot dispo will be difficult Problems Medical Problems: (1) HAP (hospital-acquired pneumonia) Status: Acute (2) Pneumonia Status: Acute Problems: Comment Review of Relevant I have reviewed the following items kassie (where applicable) has been applied. Labs Laboratory Tests Test 08/28/16 17:46 08/29/16 00:33 08/29/16 05:57 08/29/16 08:00 Glucose (Fingerstick) 307mg/dL (70-99) 318mg/dL (70-99) 328mg/dL (70-99) O2 Saturation 97% (92-99) Arterial Blood pH 7.52 (7.35-7.45) Arterial Blood pCO2 at Patient Temp 39mmHg (35-46) Arterial Blood pO2 at Patient Temp 98mmHg (75-108) Arterial Blood HCO3 31mmol/L (21-28) Arterial Blood Base Excess 8mmol/L (-3-3) FiO2 40% Test 08/29/16 09:48 08/29/16 15:12 08/29/16 18:11 08/30/16 00:17 O2 Saturation 97% (92-99) Arterial Blood pH 7.51 (7.35-7.45) Arterial Blood pCO2 at Patient Temp 41mmHg (35-46) Arterial Blood pO2 at Patient Temp 88mmHg (75-108) Arterial Blood HCO3 32mmol/L (21-28) Arterial Blood Base Excess 8mmol/L (-3-3) FiO2 40% Glucose (Fingerstick) 323mg/dL (70-99) 209mg/dL (70-99) 298mg/dL (70-99) Test 08/30/16 06:28 08/30/16 06:32 08/30/16 10:20 08/30/16 12:02 Glucose (Fingerstick) 351mg/dL (70-99) 291mg/dL (70-99) White Blood Count 16.9x10^3/uL (4.0-11.0) Red Blood Count 2.13x10^6/uL (4.30-5.70) Hemoglobin 7.2g/dL (13.0-17.5) Hematocrit 22.2% (39.0-53.0) Mean Corpuscular Volume 104fL (79-100) Mean Corpuscular Hemoglobin 34pg (25-35) Mean Corpuscular Hemoglobin Concent 33g/dL (31-37) Red Cell Distribution Width 14.4% (11.5-14.5) Platelet Count 67x10^3/uL (140-400) Neutrophils (%) (Auto) 87% (31-73) Lymphocytes (%) (Auto) 8% (24-48) Monocytes (%) (Auto) 5% (0-9) Eosinophils (%) (Auto) 0% (0-3) Basophils (%) (Auto) 0% (0-3) Neutrophils # (Auto) 14.7x10^3uL (1.8-7.7) Lymphocytes # (Auto) 1.3x10^3/uL (1.0-4.8) Monocytes # (Auto) 0.8x10^3/uL (0.0-1.1) Eosinophils # (Auto) 0.0x10^3/uL (0.0-0.7) Basophils # (Auto) 0.1x10^3/uL (0.0-0.2) Sodium Level 149mmol/L (136-145) Potassium Level 2.7mmol/L (3.5-5.1) Chloride Level 109mmol/L (98-107) Carbon Dioxide Level 35mmol/L (21-32) Anion Gap 5 (6-14) Blood Urea Nitrogen 28mg/dL (8-26) Creatinine 0.9mg/dL (0.7-1.3) Estimated GFR (Cockcroft-Gault) 106.0 Glucose Level 390mg/dL (70-99) Calcium Level 7.1mg/dL (8.5-10.1) O2 Saturation 98% (92-99) Arterial Blood pH 7.50 (7.35-7.45) Arterial Blood pCO2 at Patient Temp 39mmHg (35-46) Arterial Blood pO2 at Patient Temp 105mmHg (75-108) Arterial Blood HCO3 30mmol/L (21-28) Arterial Blood Base Excess 6mmol/L (-3-3) FiO2 40 Laboratory Tests Test 08/29/16 15:12 08/29/16 18:11 08/30/16 00:17 08/30/16 06:28 Glucose (Fingerstick) 323mg/dL (70-99) 209mg/dL (70-99) 298mg/dL (70-99) 351mg/dL (70-99) Test 08/30/16 06:32 08/30/16 10:20 08/30/16 12:02 White Blood Count 16.9x10^3/uL (4.0-11.0) Red Blood Count 2.13x10^6/uL (4.30-5.70) Hemoglobin 7.2g/dL (13.0-17.5) Hematocrit 22.2% (39.0-53.0) Mean Corpuscular Volume 104fL (79-100) Mean Corpuscular Hemoglobin 34pg (25-35) Mean Corpuscular Hemoglobin Concent 33g/dL (31-37) Red Cell Distribution Width 14.4% (11.5-14.5) Platelet Count 67x10^3/uL (140-400) Neutrophils (%) (Auto) 87% (31-73) Lymphocytes (%) (Auto) 8% (24-48) Monocytes (%) (Auto) 5% (0-9) Eosinophils (%) (Auto) 0% (0-3) Basophils (%) (Auto) 0% (0-3) Neutrophils # (Auto) 14.7x10^3uL (1.8-7.7) Lymphocytes # (Auto) 1.3x10^3/uL (1.0-4.8) Monocytes # (Auto) 0.8x10^3/uL (0.0-1.1) Eosinophils # (Auto) 0.0x10^3/uL (0.0-0.7) Basophils # (Auto) 0.1x10^3/uL (0.0-0.2) Sodium Level 149mmol/L (136-145) Potassium Level 2.7mmol/L (3.5-5.1) Chloride Level 109mmol/L (98-107) Carbon Dioxide Level 35mmol/L (21-32) Anion Gap 5 (6-14) Blood Urea Nitrogen 28mg/dL (8-26) Creatinine 0.9mg/dL (0.7-1.3) Estimated GFR (Cockcroft-Gault) 106.0 Glucose Level 390mg/dL (70-99) Calcium Level 7.1mg/dL (8.5-10.1) O2 Saturation 98% (92-99) Arterial Blood pH 7.50 (7.35-7.45) Arterial Blood pCO2 at Patient Temp 39mmHg (35-46) Arterial Blood pO2 at Patient Temp 105mmHg (75-108) Arterial Blood HCO3 30mmol/L (21-28) Arterial Blood Base Excess 6mmol/L (-3-3) FiO2 40 Glucose (Fingerstick) 291mg/dL (70-99) Microbiology 08/23/16 Blood Culture - Final, Complete NO GROWTH AFTER 5 DAYS 08/23/16 Urine Culture - Final, Complete 08/23/16 Urine Culture Result 1 (SHANON) - Final, Complete 08/23/16 Antimicrobic Susceptibility - Final, Complete Medications Current Medications Sodium Chloride 1,000 ml @ 1,000 mls/hr 1X ONCE IV Last administered on 11:16; Start 08/23/16 at 11:15; Stop 08/23/16 at 12:14; Status DC Sodium Chloride (Iv Sodium Chloride 0.9% 1000ml Bag) 1,000 ml @ 1,000 mls/hr 1X ONCE IV Last administered on 08/23/16 11:30; Start 08/23/16 at 11:30; Stop 08/23/16 at 12:29; Status DC Vancomycin HCl (Vanco Per Pharmacy) 1 each PRN DAILY PRN MC SEE COMMENTS Last administered on 08/25/16 13:04; Start 08/23/16 at 11:30; Stop 08/26/16 at 08:18; Status DC Piperacillin Sod/ Tazobactam Sod 1 each 1 each PRN DAILY PRN MC SEE COMMENTS; Start 08/23/16 at 11:30; Stop 08/25/16 at 09:54; Status DC Levofloxacin/ Dextrose 100 ml @ 100 mls/hr 1X ONCE IV Last administered on 12:58; Start 08/23/16 at 11:30; Stop 08/23/16 at 12:29; Status DC Piperacillin Sod/ Tazobactam Sod 4.5 gm/Sodium Chloride 100 ml @ 200 mls/hr 1X ONCE IV Last administered on 08/23/16 12:00; Start 08/23/16 at 12:00; Stop 08/23/16 at 12:29; Status DC Vancomycin HCl 1.5 gm/Sodium Chloride 500 ml @ 250 mls/hr 1X ONCE IV Last administered on 08/23/16 12:30; Start 08/23/16 at 12:30; Stop 08/23/16 at 14:29 ; Status DC Sodium Chloride 1,000 ml @ 1,000 mls/hr 1X ONCE IV Last administered on 12:46; Start 08/23/16 at 12:30; Stop 08/23/16 at 13:29; Status DC Piperacillin Sod/ Tazobactam Sod 3.375 gm/Sodium Chloride 50 ml @ 100 mls/hr Q6HRS IV Last administered on 08/30/16 12:00; Start 08/23/16 at 18:00 Vancomycin HCl/ Sodium Chloride (Iv Sodium Chloride 0.9% 250ml) 250 ml @ 250 mls/hr Q24H IV ; Start 08/24/16 at 13:00; Status Cancel Vancomycin HCl 1 each 1X ONCE MC ; Start 08/25/16 at 12:30; Stop 08/25/16 at 12: 31; Status DC Labetalol HCl (Normodyne) 10 mg PRN Q2HR PRN IVP HYPERTENSION, SEE COMMENTS; Start 08/23/16 at 15:45 Aspirin (Luis Armando Aspirin) 325 mg DAILY PEG Last administered on 08/29/16 07:44; Start 08/24/16 at 09:00 Bisacodyl (Dulcolax Supp) 10 mg PRN DAILY PRN RC CONSTIPATION Last administered on 08/29/16 15:48; Start 08/23/16 at 15:45 Vitamin D (Vitamin D3) 2,000 unit DAILY PO Last administered on 08/29/16 07:44 ; Start 08/24/16 at 09:00 Levetiracetam (Keppra) 500 mg BID PO ; Start 08/23/16 at 21:00; Stop 08/23/16 at 21:00; Status DC Vitamin B Complex (Hector B) 1 tab DAILY PO Last administered on 08/29/16 07:44; Start 08/24/16 at 09:00 Magnesium Hydroxide (Milk Of Magnesia) 2,400 mg PRN DAILY PRN PO CONSTIPATION; Start 08/23/16 at 15:45 Acetaminophen 500 mg 500 mg PRN Q6HRS PRN PO MILD PAIN / TEMP; Start 08/23/16 at 15:45 Levetiracetam/ Sodium Chloride (Keppra/Iv Sodium Chloride 0.9% 100ml) 105 ml @ 400 mls/hr Q12HR IV Last administered on 08/30/16 08:16; Start 08/23/16 at 21: 00 Pantoprazole Sodium (Protonix Vial) 40 mg DAILYAC IVP Last administered on 08:16; Start 08/24/16 at 07:30 Heparin Sodium (Porcine) 5000 unit 5,000 unit Q8HRS SQ ; Start 08/23/16 at 22:00 ; Stop 08/23/16 at 22:00; Status DC Sodium Bicarbonate/ Dextrose 1,150 ml @ 150 mls/hr Q7H40M IV Last administered on 08/25/16 08:05; Start 08/23/16 at 16:30; Stop 08/25/16 at 10:35; Status DC Sodium Bicarbonate 50 meq 1X ONCE IV Last administered on 08/23/16 16:24; Start 08/23/16 at 16:15; Stop 08/23/16 at 16:17; Status DC Albuterol/ Ipratropium 3 ml 3 ml RTQID NEB Last administered on 08/30/16 11:28 ; Start 08/23/16 at 20:00 Vancomycin HCl 750 mg/Sodium Chloride 250 ml @ 250 mls/hr Q24H IV Last administered on 08/24/16 12:15; Start 08/24/16 at 13:00; Stop 08/25/16 at 12:55 ; Status DC Norepinephrine Bitartrate 8 mg/ Sodium Chloride 258 ml @ 0 mls/hr CONT PRN IV SEE I/O RECORD Last administered on 08/25/16 00:28; Start 08/23/16 at 18:15 Sodium Chloride (Iv Sodium Chloride 0.9% 1000ml Bag) 1,000 ml @ 500 mls/hr Q2H IV Last administered on 08/23/16 17:00; Start 08/23/16 at 18:30; Stop at 20:29; Status DC Hydrocortisone Sodium Succinate (Solu-Cortef) 100 mg Q8HRS IV Last administered on 08/26/16 14:54; Start 08/23/16 at 22:30; Stop 08/26/16 at 16:49; Status DC Succinylcholine Chloride (Anectine) 200 mg STK-MED ONCE .ROUTE ; Start 08/24/16 at 04:15; Stop 08/24/16 at 04:16; Status DC Etomidate 20 mg 20 mg STK-MED ONCE IV ; Start 08/24/16 at 04:15; Stop 08/24/16 at 04:16; Status DC Fentanyl Citrate (Fentanyl 600 Mcg/30 ml COTTON FACTOR) 30 ml @ 0 mls/hr CONT PRN IV PROTOCOL Last administered on 08/30/16 04:54; Start 08/24/16 at 04:45 Fentanyl Citrate (Fentanyl 2ml Vial) 25 mcg PRN Q1HR PRN IV COMM Last administered on 08/29/16 07:44; Start 08/24/16 at 04:45 Fentanyl Citrate (Fentanyl 2ml Vial) 50 mcg PRN Q1HR PRN IV COMM; Start at 04:45 Chlorhexidine Gluconate 15 ml 15 ml BID MM Last administered on 08/30/16 08:15 ; Start 08/24/16 at 09:00 Midazolam HCl 100 ml @ 0 mls/hr CONT PRN IV PER PROTOCOL Last administered on 10:50; Start 08/24/16 at 04:45 Midazolam HCl 100 ml @ As Directed STK-MED ONCE IV ; Start 08/24/16 at 04:52; Stop 08/24/16 at 04:53; Status DC Sodium Chloride 1,000 ml @ 150 mls/hr Q6H40M IV Last administered on 06:13; Start 08/24/16 at 05:45; Stop 08/24/16 at 09:59; Status DC Vasopressin 40 unit/Dextrose 102 ml @ 6 mls/hr 1X ONCE IV Last administered on 08/24/16 06:12; Start 08/24/16 at 06:00; Stop 08/24/16 at 20:00; Status DC Phenylephrine HCl 20 mg/Sodium Chloride 252 ml @ 0 mls/hr CONT PRN IV SEE I/O RECORD Last administered on 08/24/16 07:28; Start 08/24/16 at 05:45 Albumin Human 500 ml @ 125 mls/hr 1X ONCE IV Last administered on 08/24/16 06:20; Start 08/24/16 at 05:45; Stop 08/24/16 at 09:44; Status DC Micafungin Sodium 100 mg/Dextrose 100 ml @ 100 mls/hr Q24H IV Last administered on 08/26/16 09:29; Start 08/24/16 at 09:00; Stop 08/27/16 at 07:37; Status DC Epinephrine HCl/ Sodium Chloride (Adrenalin/Iv Sodium Chloride 0.9% 250ml) 254 ml @ 0 mls/hr CONT PRN IV SEE I/O RECORD; Start 08/24/16 at 07:30 Epinephrine HCl (Adrenalin) 30 mg STK-MED ONCE .ROUTE ; Start 08/23/16 at 12:00 ; Stop 08/24/16 at 10:38; Status DC Epinephrine HCl 4 mg STK-MED ONCE .ROUTE ; Start 08/23/16 at 12:00; Stop at 10:38; Status DC Sodium Bicarbonate 100 meq 100 meq STK-MED ONCE .ROUTE ; Start 08/23/16 at 12:00 ; Stop 08/24/16 at 10:38; Status DC Levothyroxine Sodium 50 mcg/ Sodium Chloride 5 ml @ 100 mls/hr DAILY IVP Last administered on 08/30/16 08:16; Start 08/24/16 at 15:00 Phytonadione 10 mg/Sodium Chloride 51 ml @ 102 mls/hr 1X ONCE IV Last administered on 08/24/16 15:14; Start 08/24/16 at 14:30; Stop 08/24/16 at 14:59 ; Status DC Vasopressin/ Dextrose (Vasostrict) 102 ml @ 6 mls/hr CONT PRN IV SEE I/O RECORD Last administered on 08/26/16 05:44; Start 08/24/16 at 18:15 Acetaminophen 650 mg 650 mg PRN Q6HRS PRN PEG MILD PAIN / TEMP Last administered on 08/24/16 20:52; Start 08/24/16 at 20:45 Levofloxacin/ Dextrose (LEVAQUIN 500mg PREMIX) 100 ml @ 100 mls/hr 1X ONCE IV Last administered on 08/25/16 08:06; Start 08/25/16 at 08:00; Stop 08/25/16 at 08:59; Status DC Insulin Aspart (Novolog) 0-9 UNITS TIDWMEALS SQ Last administered on 08/25/16 17:23; Start 08/25/16 at 08:00; Stop 08/25/16 at 19:32; Status DC Dextrose 12.5 gm PRN Q15MIN PRN IV SEE COMMENTS; Start 08/25/16 at 07:30 Insulin Aspart 10 units 10 units 1X ONCE SQ Last administered on 08/25/16 08: 08; Start 08/25/16 at 08:00; Stop 08/25/16 at 08:01; Status DC Sodium Chloride 1,000 ml @ 100 mls/hr Q10H IV Last administered on 08/30/16 08 :26; Start 08/25/16 at 11:00 Potassium Chloride/Sodium Chloride (Iv Sodium Chloride 0.45%) 1,015 ml @ 75 mls /hr 1X ONCE IV Last administered on 08/25/16 10:55; Start 08/25/16 at 11:00; Stop 08/26/16 at 00:31; Status DC Insulin Aspart 10 units 10 units 1X ONCE SQ Last administered on 08/25/16 12: 42; Start 08/25/16 at 12:45; Stop 08/25/16 at 12:46; Status DC Vancomycin HCl/ Sodium Chloride (Iv Sodium Chloride 0.9% 250ml) 250 ml @ 250 mls/hr Q18H IV Last administered on 08/26/16 06:39; Start 08/25/16 at 13:00; Stop 08/26/16 at 08:18; Status DC Insulin Aspart 0-9 UNITS Q6HRS SQ Last administered on 08/30/16 12:04; Start at 00:00 Levofloxacin/ Dextrose 100 ml @ 100 mls/hr 1X ONCE IV Last administered on 09:28; Start 08/26/16 at 09:30; Stop 08/26/16 at 10:29; Status DC Potassium Chloride/Sodium Chloride (Iv Sodium Chloride 0.45%) 1,015 ml @ 75 mls /hr 1X ONCE IV Last administered on 08/26/16 15:23; Start 08/26/16 at 11:00; Stop 08/27/16 at 00:31; Status DC Hydrocortisone Sodium Succinate 100 mg 100 mg BID IV Last administered on 08:15; Start 08/27/16 at 09:00; Stop 08/30/16 at 09:26; Status DC Amino Acids/ Electrolytes/ Dextrose 1,000 ml @ 80 mls/hr [id number] IV Last administered on 08/30/16 08:15; Start 08/27/16 at 12:30 Potassium Chloride (KCl Premix 20meq) 50 ml @ 50 mls/hr 1X ONCE IV Last administered on 08/27/16 15:29; Start 08/27/16 at 12:30; Stop 08/27/16 at 13:29; Status DC Insulin Aspart 15 units 15 units 1X ONCE SQ Last administered on 08/28/16 07: 13; Start 08/28/16 at 07:15; Stop 08/28/16 at 07:16; Status DC Propofol 100 ml @ As Directed STK-MED ONCE IV ; Start 08/29/16 at 16:23; Stop at 16:24; Status DC Propofol (Diprivan) 100 ml @ 0 mls/hr CONT PRN IV SEE I/O RECORD Last administered on 08/29/16 16:30; Start 08/29/16 at 18:00 Insulin Aspart 6 units 6 units 1X ONCE SQ Last administered on 08/30/16 08:18 ; Start 08/30/16 at 07:15; Stop 08/30/16 at 07:16; Status DC Potassium Chloride (KCl Premix 20meq) 50 ml @ 50 mls/hr Q1H IV Last administered on 08/30/16 12:00; Start 08/30/16 at 07:30; Stop 08/30/16 at 09:29; Status DC Hydrocortisone Sodium Succinate (Solu-Cortef) 50 mg BID IV ; Start 08/30/16 at 21 :00 Active Scripts Active Reported Milk Of Magnesia (Magnesium Hydroxide) 2,400 Mg/10 Ml Oral.susp 2,400 Mg PO DAILY PRN Dulcolax (Bisacodyl) 10 Mg Supp.rect 10 Mg RC PRN DAILY PRN Aspirin 325 Mg Tablet 1 Tab PEG DAILY Tylenol (Acetaminophen) 325 Mg Tablet 2 Tab PO PRN Q6HRS PRN Vitamin B Complex 1 Each Tablet 1 Tab PO DAILY Vitamin D3 (Cholecalciferol (Vitamin D3)) 1,000 Unit Tablet 2,000 Unit PO DAILY Keppra (Levetiracetam) 500 Mg Tablet 500 Mg PO BID Vitals/I & O Vital Sign - Last 24 Hours 08/29/16 08/29/16 08/29/16 08/29/16 15:00 15:25 16:00 16:00 Pulse 100 114 Resp 14 14 B/P 99/60 93/72 Pulse Ox 100 100 100 O2 Delivery Ventilator Ventilator Ventilator Mechanical Ventilator 08/29/16 08/29/16 08/29/16 08/29/16 16:43 17:00 18:00 18:11 Pulse 104 104 Resp 17 15 12 B/P 96/59 109/63 Pulse Ox 99 100 100 100 O2 Delivery Ventilator Ventilator Ventilator Ventilator 08/29/16 08/29/16 08/29/16 08/29/16 19:00 19:32 19:45 20:00 Temp 98.9 98.9 Pulse 92 100 Resp 13 8 B/P 95/59 90/69 Pulse Ox 100 100 100 O2 Delivery Ventilator Ventilator Mechanical Ventilator Ventilator 08/29/16 08/29/16 08/29/16 08/29/16 21:00 22:00 23:06 23:10 Temp 98.7 98.7 Pulse 99 90 85 Resp 13 12 9 B/P 95/62 115/66 87/56 Pulse Ox 100 97 100 O2 Delivery Ventilator Ventilator Ventilator Mechanical Ventilator 08/29/16 08/30/16 08/30/16 08/30/16 23:15 00:00 01:00 01:39 Pulse 81 81 Resp 12 12 B/P 82/53 82/53 Pulse Ox 100 100 100 100 O2 Delivery Ventilator Ventilator Ventilator Ventilator 08/30/16 08/30/16 08/30/16 08/30/16 02:00 03:00 03:39 03:40 Temp 98.6 98.6 Pulse 85 85 Resp 12 13 B/P 85/56 95/62 Pulse Ox 100 100 100 O2 Delivery Ventilator Ventilator Mechanical Ventilator Ventilator 08/30/16 08/30/16 08/30/16 08/30/16 04:00 04:54 05:00 05:38 Pulse 82 84 Resp 12 13 B/P 87/56 106/71 Pulse Ox 100 100 100 100 O2 Delivery Ventilator Ventilator Ventilator O2 Flow Rate 5.0 08/30/16 08/30/16 08/30/16 08/30/16 06:33 07:00 07:20 08:00 Pulse 87 82 Resp 13 9 B/P 116/70 109/72 Pulse Ox 100 100 100 O2 Delivery Ventilator Ventilator Ventilator Mechanical Ventilator 08/30/16 08/30/16 08/30/16 08/30/16 08:00 09:00 09:30 10:00 Temp 99.1 99.1 Pulse 90 100 90 Resp 12 11 18 B/P 103/60 106/60 94/59 Pulse Ox 100 100 100 O2 Delivery Ventilator Ventilator Ventilator Ventilator 08/30/16 08/30/16 08/30/16 08/30/16 11:00 11:05 11:28 12:00 Pulse 90 Resp 11 B/P 101/58 Pulse Ox 100 98 O2 Delivery Ventilator Venturi Mask Venturi Mask Venturi Mask O2 Flow Rate 6.0 6.0 08/30/16 08/30/16 08/30/16 12:00 13:00 14:00 Temp 99.2 99.2 Pulse 89 96 94 Resp 12 13 13 B/P 98/55 107/74 102/64 Pulse Ox 100 100 99 O2 Delivery Ventilator Ventilator Nasal Cannula O2 Flow Rate 2.0 Intake and Output 08/29/16 08/29/16 08/30/16 15:00 23:00 07:00 Intake Total 0 ml 2000 ml 1961 ml Output Total 1800 ml 735 ml Balance 0 ml 200 ml 1226 ml EUNICE CERVANTES MD Aug 30, 2016 14:28
[2016-08-31] VITALS (13 sets, daily range): BP systolic 105–133; BP diastolic 62–85
[2016-08-31] MEDS ORDERED: INSULIN ASPART 300 UNITS/3 ML INSULN.PEN SQ ONE (01:00)
[2016-08-31] MEDS: IV 1/2 NORMAL SALINE 1,000 ML IV SCH ×2 (04:17→07:36)
[2016-08-31] MEDS: PIPERACILLIN/TAZOBACTAM 3.375 GM in IV NORMAL SALINE 50ML 50 ML IV SCH ×3 (05:26→18:41)
--- NOTE | 2016-08-31 07:34 | PDOC ---
Infectious Disease Note Subjective Subjective extubated , awake ROS ROS unable to do Vital Sign Vital Signs Vital Signs Date Time Temp Pulse Resp B/P Pulse Ox O2 Delivery O2 Flow Rate FiO2 08/31/16 07:00 87 20 114/74 97 Nasal Cannula 2.0 08/31/16 04:00 98.8 98.8 Physical Exam PHYSICAL EXAM GENERAL: NAD, Alert HEENT: PERRL, OC/OP NECK: Supple, no JVD, no LN LUNGS: Clear HEART: S1S2, no gallop, no murmur ABD: Soft, NT, no organomegaly, no rebound EXT: No edema, no cyanosis [employer]MING [employer]PER[employer]: Alert, SKIN: No rash IV: ok Labs Lab Laboratory Tests Test 08/30/16 10:20 08/30/16 12:02 08/30/16 18:20 08/31/16 00:03 O2 Saturation 98% (92-99) Arterial Blood pH 7.50 (7.35-7.45) Arterial Blood pCO2 at Patient Temp 39mmHg (35-46) Arterial Blood pO2 at Patient Temp 105mmHg (75-108) Arterial Blood HCO3 30mmol/L (21-28) Arterial Blood Base Excess 6mmol/L (-3-3) FiO2 40 Glucose (Fingerstick) 291mg/dL (70-99) 344mg/dL (70-99) 360mg/dL (70-99) Test 08/31/16 06:13 Glucose (Fingerstick) 355mg/dL (70-99) Objective Assessment Severe Sepsis - improved Hyperglycemia -improved ? early DIC vs sepsis with thrombocytopenia and coagulopathy - stable Hydronephrosis on U/S - May need nephrostomy tubes per urology Acute Resp failure - intubated Lactic acidosis MAHAD with h/o hydronephrosis -better Bandemia/leukocytosis - on Hydrocortisone Hematuria - improved UTI - Proteus H/o granulomas Plan Plan of Care Cont Zosyn soon to change to po UNRULY MENDOZA MD Aug 31, 2016 07:34
[2016-08-31] MEDS: AA 4.25%/CALCIUM/LYTES/D5W 1,000 ML IV SCH ×2 (07:36→21:21)
[2016-08-31] MEDS: INSULIN ASPART 300 UNITS/3 ML INSULN.PEN SQ SCH ×6 (07:39→18:43)
[2016-08-31] MEDS: IPRATRPIUM/ALBUTEROL 0.5/2.5MG 3 ML NEBU. NEB SCH ×4 (08:24→20:13)
--- NOTE | 2016-08-31 09:06 | PDOC ---
Objective: Objective: Per RN - BM overnight, better BS. Vital Signs: Vital Signs Date Time Temp Pulse Resp B/P Pulse Ox O2 Delivery O2 Flow Rate FiO2 08/31/16 08:26 100 Nasal Cannula 2.5 08/31/16 08:00 99.9 99 18 119/66 99.9 Labs: Laboratory Tests Test 08/30/16 10:20 08/30/16 12:02 08/30/16 18:20 08/31/16 00:03 O2 Saturation 98% Arterial Blood pH 7.50 Arterial Blood pCO2 at Patient Temp 39mmHg Arterial Blood pO2 at Patient Temp 105mmHg Arterial Blood HCO3 30mmol/L Arterial Blood Base Excess 6mmol/L FiO2 40 Glucose (Fingerstick) 291mg/dL 344mg/dL 360mg/dL Test 08/31/16 06:13 Glucose (Fingerstick) 355mg/dL PE: GEN: NAD LUNGS: clear anteriorly, nasal cannula HEART: tachycardic ABD: BS+ (much more obvious today), S/NT NEURO/PSYCH: eyes open, non-verbal A/P: Ileus -BM overnight w/ increased BS PEG in place -feedings held since 08/26 Leukocytosis -- Improved. Okay to retry tube feeds. LUCIO YODER Aug 31, 2016 09:06
[2016-08-31] MEDS: LEVETIRACETAM 500 MG in IV NORMAL SALINE 100ML 100 ML IV SCH ×2 (09:28→21:22)
[2016-08-31] MEDS: HYDROCORTISONE SOD SUCC/PF 100 MG/2 ML VIAL. IV SCH ×2 (09:28→21:22)
[2016-08-31] MEDS: LEVOTHYROXINE SODIUM 50 MCG in IV NORMAL SALINE 50ML 5 ML IVP SCH (09:28)
[2016-08-31] MEDS: PANTOPRAZOLE IV PUSH 40 MG VIAL. IVP SCH (09:28)
[2016-08-31] MEDS: CHOLECALCIFEROL (VITAMIN D3) 1,000 UNIT TABLET PO SCH (09:29)
[2016-08-31] MEDS: ASPIRIN 325 MG TABLET PEG SCH (09:29)
[2016-08-31] MEDS: VITAMIN B COMPLEX TABLET. PO SCH (09:29)
--- NOTE | 2016-08-31 09:40 | PDOC ---
PULMONARY PROGRESS NOTES Subjective extubated 08/30 no soa Vitals Vital Signs Date Time Temp Pulse Resp B/P Pulse Ox O2 Delivery O2 Flow Rate FiO2 08/31/16 08:26 100 Nasal Cannula 2.5 08/31/16 08:00 99.9 99 18 119/66 99.9 General: No acute distress Lungs: Clear Cardiovascular: S1, S2 Abdomen: Soft Extremities: Other (some edema) Skin: Warm Labs Laboratory Tests Test 08/29/16 09:48 08/29/16 15:12 08/29/16 18:11 08/30/16 00:17 O2 Saturation 97% (92-99) Arterial Blood pH 7.51 (7.35-7.45) Arterial Blood pCO2 at Patient Temp 41mmHg (35-46) Arterial Blood pO2 at Patient Temp 88mmHg (75-108) Arterial Blood HCO3 32mmol/L (21-28) Arterial Blood Base Excess 8mmol/L (-3-3) FiO2 40% Glucose (Fingerstick) 323mg/dL (70-99) 209mg/dL (70-99) 298mg/dL (70-99) Test 08/30/16 06:28 08/30/16 06:32 08/30/16 10:20 08/30/16 12:02 Glucose (Fingerstick) 351mg/dL (70-99) 291mg/dL (70-99) White Blood Count 16.9x10^3/uL (4.0-11.0) Red Blood Count 2.13x10^6/uL (4.30-5.70) Hemoglobin 7.2g/dL (13.0-17.5) Hematocrit 22.2% (39.0-53.0) Mean Corpuscular Volume 104fL (79-100) Mean Corpuscular Hemoglobin 34pg (25-35) Mean Corpuscular Hemoglobin Concent 33g/dL (31-37) Red Cell Distribution Width 14.4% (11.5-14.5) Platelet Count 67x10^3/uL (140-400) Neutrophils (%) (Auto) 87% (31-73) Lymphocytes (%) (Auto) 8% (24-48) Monocytes (%) (Auto) 5% (0-9) Eosinophils (%) (Auto) 0% (0-3) Basophils (%) (Auto) 0% (0-3) Neutrophils # (Auto) 14.7x10^3uL (1.8-7.7) Lymphocytes # (Auto) 1.3x10^3/uL (1.0-4.8) Monocytes # (Auto) 0.8x10^3/uL (0.0-1.1) Eosinophils # (Auto) 0.0x10^3/uL (0.0-0.7) Basophils # (Auto) 0.1x10^3/uL (0.0-0.2) Sodium Level 149mmol/L (136-145) Potassium Level 2.7mmol/L (3.5-5.1) Chloride Level 109mmol/L (98-107) Carbon Dioxide Level 35mmol/L (21-32) Anion Gap 5 (6-14) Blood Urea Nitrogen 28mg/dL (8-26) Creatinine 0.9mg/dL (0.7-1.3) Estimated GFR (Cockcroft-Gault) 106.0 Glucose Level 390mg/dL (70-99) Calcium Level 7.1mg/dL (8.5-10.1) O2 Saturation 98% (92-99) Arterial Blood pH 7.50 (7.35-7.45) Arterial Blood pCO2 at Patient Temp 39mmHg (35-46) Arterial Blood pO2 at Patient Temp 105mmHg (75-108) Arterial Blood HCO3 30mmol/L (21-28) Arterial Blood Base Excess 6mmol/L (-3-3) FiO2 40 Test 08/30/16 18:20 08/31/16 00:03 08/31/16 06:13 Glucose (Fingerstick) 344mg/dL (70-99) 360mg/dL (70-99) 355mg/dL (70-99) Laboratory Tests Test 08/30/16 10:20 08/30/16 12:02 08/30/16 18:20 08/31/16 00:03 O2 Saturation 98% (92-99) Arterial Blood pH 7.50 (7.35-7.45) Arterial Blood pCO2 at Patient Temp 39mmHg (35-46) Arterial Blood pO2 at Patient Temp 105mmHg (75-108) Arterial Blood HCO3 30mmol/L (21-28) Arterial Blood Base Excess 6mmol/L (-3-3) FiO2 40 Glucose (Fingerstick) 291mg/dL (70-99) 344mg/dL (70-99) 360mg/dL (70-99) Test 08/31/16 06:13 Glucose (Fingerstick) 355mg/dL (70-99) Medications Active Scripts Medications Dose Route/Sig Days Date Category Milk Of Magnesia (Magnesium Hydroxide) 2,400 Mg/10 Ml Oral.susp 2,400 Mg PO DAILY PRN 08/21/15 Reported Dulcolax (Bisacodyl) 10 Mg Supp.rect 10 Mg RC PRN DAILY PRN 08/21/15 Reported Aspirin 325 Mg Tablet 1 Tab PEG DAILY 08/02/15 Reported Tylenol (Acetaminophen) 325 Mg Tablet 2 Tab PO PRN Q6HRS PRN 08/02/15 Reported Vitamin B Complex 1 Each Tablet 1 Tab PO DAILY 07/25/15 Reported Vitamin D3 (Cholecalciferol (Vitamin D3)) 1,000 Unit Tablet 2,000 Unit PO DAILY 07/25/15 Reported Keppra (Levetiracetam) 500 Mg Tablet 500 Mg PO BID 07/25/15 Reported Impression . 1. Acute hypoxic respiratory failure secondary septic shock, resolved, extubated 08/30 2. Septic shock cultures so far negative, resolved 3. Abnormal chest x-ray with initial x-ray showing infiltrate 4. Acute severe metabolic acidosis with severe lactic acidosis secondary to sepsis/septic shock. MAHAD contributing to metabolic acidosis, improved 5. Hematuria 6. Urinary tract infection. 7. Coagulopathy, most likely related to early disseminated intravascular coagulation. 8. Underlying Down's syndrome 9. Dysphagia S/P PEG Plan . nasal canula repeat K repeat H/H start TF decrease steroids d/w SADA RIVERA MD Aug 31, 2016 09:40
[2016-08-31 10:34] LABS: HEMATOCRIT 23.8 % (39.0-53.0); MEAN CORPUSCULAR HEMOGLOBIN 34 pg (25-35); MEAN CORPUSCULAR HGB CONC 33 g/dL (31-37); MEAN CORPUSCULAR VOLUME 102 fL (79-100); PLATELET COUNT 85 x10^3/uL (140-400); RED BLOOD COUNT 2.33 x10^6/uL (4.30-5.70); RED CELL DISTRIBUTION WIDTH 14.3 % (11.5-14.5); WHITE BLOOD COUNT 18.1 x10^3/uL (4.0-11.0)
[2016-08-31 10:35] LABS: LYMPH # 1.9 x10^3/uL (1.0-4.8); LYMPH % 11 % (24-48); MONO % 5 % (0-9); NEUT % 84 % (31-73)
[2016-08-31 11:18] LABS: CALCIUM 7.5 mg/dL (8.5-10.1)
[2016-08-31 11:19] LABS: GFR 93.9
[2016-08-31 11:21] LABS: POTASSIUM 2.4 mmol/L (3.5-5.1)
[2016-08-31] MEDS ORDERED: INSULIN DETEMIR 300 UNITS/3 ML INSULN.PEN. SQ SCH (11:30)
[2016-08-31] MEDS: POTASSIUM CHLORIDE 20MEQ 50 ML IV SCH ×4 (11:57→16:32)
--- NOTE | 2016-08-31 12:44 | PDOC ---
PROGRESS NOTES Chief Complaint Chief Complaint Resp failure - was intubated, breathing werll 1. Severe Sepsis, pneumonia 2. PNA, bed bound, , aspiration 3. Bed bound, non verbal, hx down's, and hx CVA 4. Dysphagia, indwelling PEG 5 MAHAD, vasomotor, now recovery phase with marked (critical) hypokalemia, 6. Gap metabolic acidosis, recent vomiting, severe sepsis 7. hypothyroidism 8. down syndrome History of Present Illness History of Present Illness Patient seen in ICU. extubated and calm, breathing OK not verbally coherent DW RN code status changed to DNR on on this admit Vitals Vitals Vital Signs Date Time Temp Pulse Resp B/P Pulse Ox O2 Delivery O2 Flow Rate FiO2 08/31/16 08:26 100 Nasal Cannula 2.5 08/31/16 08:00 99.9 99 18 119/66 99.9 Physical Exam Physical Exam General: Alert, No acute distress, Other ( awake, ) Heart: Regular rate, No murmurs Lungs: Clear Abdomen: Normal bowel sounds, Soft, No tenderness Extremities: No clubbing Skin: No breakdown, No significant lesion Labs LABS Laboratory Tests Test 08/30/16 18:20 08/31/16 00:03 08/31/16 06:13 08/31/16 10:00 Glucose (Fingerstick) 344mg/dL (70-99) 360mg/dL (70-99) 355mg/dL (70-99) White Blood Count 18.1x10^3/uL (4.0-11.0) Red Blood Count 2.33x10^6/uL (4.30-5.70) Hemoglobin 8.0g/dL (13.0-17.5) Hematocrit 23.8% (39.0-53.0) Mean Corpuscular Volume 102fL (79-100) Mean Corpuscular Hemoglobin 34pg (25-35) Mean Corpuscular Hemoglobin Concent 33g/dL (31-37) Red Cell Distribution Width 14.3% (11.5-14.5) Platelet Count 85x10^3/uL (140-400) Neutrophils (%) (Auto) 84% (31-73) Lymphocytes (%) (Auto) 11% (24-48) Monocytes (%) (Auto) 5% (0-9) Neutrophils # (Auto) 15.1x10^3uL (1.8-7.7) Lymphocytes # (Auto) 1.9x10^3/uL (1.0-4.8) Monocytes # (Auto) 1.0x10^3/uL (0.0-1.1) Sodium Level 150mmol/L (136-145) Potassium Level 2.4mmol/L (3.5-5.1) Chloride Level 110mmol/L (98-107) Carbon Dioxide Level 33mmol/L (21-32) Anion Gap 7 (6-14) Blood Urea Nitrogen 25mg/dL (8-26) Creatinine 1.0mg/dL (0.7-1.3) Estimated GFR (Cockcroft-Gault) 93.9 Glucose Level 289mg/dL (70-99) Calcium Level 7.5mg/dL (8.5-10.1) Assessment and Plan Assessmemt and Plan Problems Medical Problems: (1) HAP (hospital-acquired pneumonia) Status: Acute (2) Pneumonia Status: Acute Problems: Comment Review of Relevant I have reviewed the following items kassie (where applicable) has been applied. Labs Laboratory Tests Test 08/29/16 15:12 08/29/16 18:11 08/30/16 00:17 08/30/16 06:28 Glucose (Fingerstick) 323mg/dL (70-99) 209mg/dL (70-99) 298mg/dL (70-99) 351mg/dL (70-99) Test 08/30/16 06:32 08/30/16 10:20 08/30/16 12:02 08/30/16 18:20 White Blood Count 16.9x10^3/uL (4.0-11.0) Red Blood Count 2.13x10^6/uL (4.30-5.70) Hemoglobin 7.2g/dL (13.0-17.5) Hematocrit 22.2% (39.0-53.0) Mean Corpuscular Volume 104fL (79-100) Mean Corpuscular Hemoglobin 34pg (25-35) Mean Corpuscular Hemoglobin Concent 33g/dL (31-37) Red Cell Distribution Width 14.4% (11.5-14.5) Platelet Count 67x10^3/uL (140-400) Neutrophils (%) (Auto) 87% (31-73) Lymphocytes (%) (Auto) 8% (24-48) Monocytes (%) (Auto) 5% (0-9) Eosinophils (%) (Auto) 0% (0-3) Basophils (%) (Auto) 0% (0-3) Neutrophils # (Auto) 14.7x10^3uL (1.8-7.7) Lymphocytes # (Auto) 1.3x10^3/uL (1.0-4.8) Monocytes # (Auto) 0.8x10^3/uL (0.0-1.1) Eosinophils # (Auto) 0.0x10^3/uL (0.0-0.7) Basophils # (Auto) 0.1x10^3/uL (0.0-0.2) Sodium Level 149mmol/L (136-145) Potassium Level 2.7mmol/L (3.5-5.1) Chloride Level 109mmol/L (98-107) Carbon Dioxide Level 35mmol/L (21-32) Anion Gap 5 (6-14) Blood Urea Nitrogen 28mg/dL (8-26) Creatinine 0.9mg/dL (0.7-1.3) Estimated GFR (Cockcroft-Gault) 106.0 Glucose Level 390mg/dL (70-99) Calcium Level 7.1mg/dL (8.5-10.1) O2 Saturation 98% (92-99) Arterial Blood pH 7.50 (7.35-7.45) Arterial Blood pCO2 at Patient Temp 39mmHg (35-46) Arterial Blood pO2 at Patient Temp 105mmHg (75-108) Arterial Blood HCO3 30mmol/L (21-28) Arterial Blood Base Excess 6mmol/L (-3-3) FiO2 40 Glucose (Fingerstick) 291mg/dL (70-99) 344mg/dL (70-99) Test 08/31/16 00:03 08/31/16 06:13 08/31/16 10:00 Glucose (Fingerstick) 360mg/dL (70-99) 355mg/dL (70-99) White Blood Count 18.1x10^3/uL (4.0-11.0) Red Blood Count 2.33x10^6/uL (4.30-5.70) Hemoglobin 8.0g/dL (13.0-17.5) Hematocrit 23.8% (39.0-53.0) Mean Corpuscular Volume 102fL (79-100) Mean Corpuscular Hemoglobin 34pg (25-35) Mean Corpuscular Hemoglobin Concent 33g/dL (31-37) Red Cell Distribution Width 14.3% (11.5-14.5) Platelet Count 85x10^3/uL (140-400) Neutrophils (%) (Auto) 84% (31-73) Lymphocytes (%) (Auto) 11% (24-48) Monocytes (%) (Auto) 5% (0-9) Neutrophils # (Auto) 15.1x10^3uL (1.8-7.7) Lymphocytes # (Auto) 1.9x10^3/uL (1.0-4.8) Monocytes # (Auto) 1.0x10^3/uL (0.0-1.1) Sodium Level 150mmol/L (136-145) Potassium Level 2.4mmol/L (3.5-5.1) Chloride Level 110mmol/L (98-107) Carbon Dioxide Level 33mmol/L (21-32) Anion Gap 7 (6-14) Blood Urea Nitrogen 25mg/dL (8-26) Creatinine 1.0mg/dL (0.7-1.3) Estimated GFR (Cockcroft-Gault) 93.9 Glucose Level 289mg/dL (70-99) Calcium Level 7.5mg/dL (8.5-10.1) Laboratory Tests Test 08/30/16 18:20 08/31/16 00:03 08/31/16 06:13 08/31/16 10:00 Glucose (Fingerstick) 344mg/dL (70-99) 360mg/dL (70-99) 355mg/dL (70-99) White Blood Count 18.1x10^3/uL (4.0-11.0) Red Blood Count 2.33x10^6/uL (4.30-5.70) Hemoglobin 8.0g/dL (13.0-17.5) Hematocrit 23.8% (39.0-53.0) Mean Corpuscular Volume 102fL (79-100) Mean Corpuscular Hemoglobin 34pg (25-35) Mean Corpuscular Hemoglobin Concent 33g/dL (31-37) Red Cell Distribution Width 14.3% (11.5-14.5) Platelet Count 85x10^3/uL (140-400) Neutrophils (%) (Auto) 84% (31-73) Lymphocytes (%) (Auto) 11% (24-48) Monocytes (%) (Auto) 5% (0-9) Neutrophils # (Auto) 15.1x10^3uL (1.8-7.7) Lymphocytes # (Auto) 1.9x10^3/uL (1.0-4.8) Monocytes # (Auto) 1.0x10^3/uL (0.0-1.1) Sodium Level 150mmol/L (136-145) Potassium Level 2.4mmol/L (3.5-5.1) Chloride Level 110mmol/L (98-107) Carbon Dioxide Level 33mmol/L (21-32) Anion Gap 7 (6-14) Blood Urea Nitrogen 25mg/dL (8-26) Creatinine 1.0mg/dL (0.7-1.3) Estimated GFR (Cockcroft-Gault) 93.9 Glucose Level 289mg/dL (70-99) Calcium Level 7.5mg/dL (8.5-10.1) Microbiology 08/23/16 Blood Culture - Final, Complete NO GROWTH AFTER 5 DAYS 08/23/16 Urine Culture - Final, Complete 08/23/16 Urine Culture Result 1 (SHANON) - Final, Complete 08/23/16 Antimicrobic Susceptibility - Final, Complete Medications Current Medications Sodium Chloride 1,000 ml @ 1,000 mls/hr 1X ONCE IV Last administered on t 11:16; Start 08/23/16 at 11:15; Stop 08/23/16 at 12:14; Status DC Sodium Chloride (Iv Sodium Chloride 0.9% 1000ml Bag) 1,000 ml @ 1,000 mls/hr 1X ONCE IV Last administered on 08/23/16t 11:30; Start 08/23/16 at 11:30; Stop 08/23/16 at 12:29; Status DC Vancomycin HCl (Vanco Per Pharmacy) 1 each PRN DAILY PRN MC SEE COMMENTS Last administered on 08/25/16 13:04; Start 08/23/16 at 11:30; Stop 08/26/16 at 08:18; Status DC Piperacillin Sod/ Tazobactam Sod 1 each 1 each PRN DAILY PRN MC SEE COMMENTS; Start 08/23/16 at 11:30; Stop 08/25/16 at 09:54; Status DC Levofloxacin/ Dextrose 100 ml @ 100 mls/hr 1X ONCE IV Last administered on 12:58; Start 08/23/16 at 11:30; Stop 08/23/16 at 12:29; Status DC Piperacillin Sod/ Tazobactam Sod 4.5 gm/Sodium Chloride 100 ml @ 200 mls/hr 1X ONCE IV Last administered on 08/23/16 12:00; Start 08/23/16 at 12:00; Stop 08/23/16 at 12:29; Status DC Vancomycin HCl 1.5 gm/Sodium Chloride 500 ml @ 250 mls/hr 1X ONCE IV Last administered on 08/23/16 12:30; Start 08/23/16 at 12:30; Stop 08/23/16 at 14:29 ; Status DC Sodium Chloride 1,000 ml @ 1,000 mls/hr 1X ONCE IV Last administered on 12:46; Start 08/23/16 at 12:30; Stop 08/23/16 at 13:29; Status DC Piperacillin Sod/ Tazobactam Sod 3.375 gm/Sodium Chloride 50 ml @ 100 mls/hr Q6HRS IV Last administered on 08/31/16 11:57; Start 08/23/16 at 18:00 Vancomycin HCl/ Sodium Chloride (Iv Sodium Chloride 0.9% 250ml) 250 ml @ 250 mls/hr Q24H IV ; Start 08/24/16 at 13:00; Status Cancel Vancomycin HCl 1 each 1X ONCE MC ; Start 08/25/16 at 12:30; Stop 08/25/16 at 12: 31; Status DC Labetalol HCl (Normodyne) 10 mg PRN Q2HR PRN IVP HYPERTENSION, SEE COMMENTS; Start 08/23/16 at 15:45 Aspirin (Luis Armando Aspirin) 325 mg DAILY PEG Last administered on 08/31/16 09:29; Start 08/24/16 at 09:00 Bisacodyl (Dulcolax Supp) 10 mg PRN DAILY PRN RC CONSTIPATION Last administered on 08/29/16 15:48; Start 08/23/16 at 15:45 Vitamin D (Vitamin D3) 2,000 unit DAILY PO Last administered on 08/31/16 09:29 ; Start 08/24/16 at 09:00 Levetiracetam (Keppra) 500 mg BID PO ; Start 08/23/16 at 21:00; Stop 08/23/16 at 21:00; Status DC Vitamin B Complex (Hector B) 1 tab DAILY PO Last administered on 08/31/16 09:29; Start 08/24/16 at 09:00 Magnesium Hydroxide (Milk Of Magnesia) 2,400 mg PRN DAILY PRN PO CONSTIPATION; Start 08/23/16 at 15:45 Acetaminophen 500 mg 500 mg PRN Q6HRS PRN PO MILD PAIN / TEMP; Start 08/23/16 at 15:45 Levetiracetam/ Sodium Chloride (Keppra/Iv Sodium Chloride 0.9% 100ml) 105 ml @ 400 mls/hr Q12HR IV Last administered on 08/31/16 09:28; Start 08/23/16 at 21: 00 Pantoprazole Sodium (Protonix Vial) 40 mg DAILYAC IVP Last administered on 09:28; Start 08/24/16 at 07:30 Heparin Sodium (Porcine) 5000 unit 5,000 unit Q8HRS SQ ; Start 08/23/16 at 22:00 ; Stop 08/23/16 at 22:00; Status DC Sodium Bicarbonate/ Dextrose 1,150 ml @ 150 mls/hr Q7H40M IV Last administered on 08/25/16 08:05; Start 08/23/16 at 16:30; Stop 08/25/16 at 10:35; Status DC Sodium Bicarbonate 50 meq 1X ONCE IV Last administered on 08/23/16 16:24; Start 08/23/16 at 16:15; Stop 08/23/16 at 16:17; Status DC Albuterol/ Ipratropium 3 ml 3 ml RTQID NEB Last administered on 08/31/16 08:24 ; Start 08/23/16 at 20:00 Vancomycin HCl 750 mg/Sodium Chloride 250 ml @ 250 mls/hr Q24H IV Last administered on 08/24/16 12:15; Start 08/24/16 at 13:00; Stop 08/25/16 at 12:55 ; Status DC Norepinephrine Bitartrate 8 mg/ Sodium Chloride 258 ml @ 0 mls/hr CONT PRN IV SEE I/O RECORD Last administered on 08/25/16 00:28; Start 08/23/16 at 18:15 Sodium Chloride (Iv Sodium Chloride 0.9% 1000ml Bag) 1,000 ml @ 500 mls/hr Q2H IV Last administered on 08/23/16 17:00; Start 08/23/16 at 18:30; Stop at 20:29; Status DC Hydrocortisone Sodium Succinate (Solu-Cortef) 100 mg Q8HRS IV Last administered on 08/26/16 14:54; Start 08/23/16 at 22:30; Stop 08/26/16 at 16:49; Status DC Succinylcholine Chloride (Anectine) 200 mg STK-MED ONCE .ROUTE ; Start 08/24/16 at 04:15; Stop 08/24/16 at 04:16; Status DC Etomidate 20 mg 20 mg STK-MED ONCE IV ; Start 08/24/16 at 04:15; Stop 08/24/16 at 04:16; Status DC Fentanyl Citrate (Fentanyl 600 Mcg/30 ml DECKHAND ENGINEER) 30 ml @ 0 mls/hr CONT PRN IV PROTOCOL Last administered on 08/30/16 04:54; Start 08/24/16 at 04:45 Fentanyl Citrate (Fentanyl 2ml Vial) 25 mcg PRN Q1HR PRN IV COMM Last administered on 08/29/16 07:44; Start 08/24/16 at 04:45; Stop 08/30/16 at 16:51; Status DC Fentanyl Citrate (Fentanyl 2ml Vial) 50 mcg PRN Q1HR PRN IV COMM; Start at 04:45; Status Cancel Chlorhexidine Gluconate 15 ml 15 ml BID MM Last administered on 08/30/16 08:15 ; Start 08/24/16 at 09:00; Stop 08/30/16 at 22:16; Status DC Midazolam HCl 100 ml @ 0 mls/hr CONT PRN IV PER PROTOCOL Last administered on 10:50; Start 08/24/16 at 04:45 Midazolam HCl 100 ml @ As Directed STK-MED ONCE IV ; Start 08/24/16 at 04:52; Stop 08/24/16 at 04:53; Status DC Sodium Chloride 1,000 ml @ 150 mls/hr Q6H40M IV Last administered on 06:13; Start 08/24/16 at 05:45; Stop 08/24/16 at 09:59; Status DC Vasopressin 40 unit/Dextrose 102 ml @ 6 mls/hr 1X ONCE IV Last administered on 08/24/16 06:12; Start 08/24/16 at 06:00; Stop 08/24/16 at 20:00; Status DC Phenylephrine HCl 20 mg/Sodium Chloride 252 ml @ 0 mls/hr CONT PRN IV SEE I/O RECORD Last administered on 08/24/16 07:28; Start 08/24/16 at 05:45 Albumin Human 500 ml @ 125 mls/hr 1X ONCE IV Last administered on 08/24/16 06:20; Start 08/24/16 at 05:45; Stop 08/24/16 at 09:44; Status DC Micafungin Sodium 100 mg/Dextrose 100 ml @ 100 mls/hr Q24H IV Last administered on 08/26/16 09:29; Start 08/24/16 at 09:00; Stop 08/27/16 at 07:37; Status DC Epinephrine HCl/ Sodium Chloride (Adrenalin/Iv Sodium Chloride 0.9% 250ml) 254 ml @ 0 mls/hr CONT PRN IV SEE I/O RECORD; Start 08/24/16 at 07:30 Epinephrine HCl (Adrenalin) 30 mg STK-MED ONCE .ROUTE ; Start 08/23/16 at 12:00 ; Stop 08/24/16 at 10:38; Status DC Epinephrine HCl 4 mg STK-MED ONCE .ROUTE ; Start 08/23/16 at 12:00; Stop at 10:38; Status DC Sodium Bicarbonate 100 meq 100 meq STK-MED ONCE .ROUTE ; Start 08/23/16 at 12:00 ; Stop 08/24/16 at 10:38; Status DC Levothyroxine Sodium 50 mcg/ Sodium Chloride 5 ml @ 100 mls/hr DAILY IVP Last administered on 08/31/16 09:28; Start 08/24/16 at 15:00 Phytonadione 10 mg/Sodium Chloride 51 ml @ 102 mls/hr 1X ONCE IV Last administered on 08/24/16 15:14; Start 08/24/16 at 14:30; Stop 08/24/16 at 14:59 ; Status DC Vasopressin/ Dextrose (Vasostrict) 102 ml @ 6 mls/hr CONT PRN IV SEE I/O RECORD Last administered on 08/26/16 05:44; Start 08/24/16 at 18:15 Acetaminophen 650 mg 650 mg PRN Q6HRS PRN PEG MILD PAIN / TEMP Last administered on 08/24/16 20:52; Start 08/24/16 at 20:45 Levofloxacin/ Dextrose (LEVAQUIN 500mg PREMIX) 100 ml @ 100 mls/hr 1X ONCE IV Last administered on 08/25/16 08:06; Start 08/25/16 at 08:00; Stop 08/25/16 at 08:59; Status DC Insulin Aspart (Novolog) 0-9 UNITS TIDWMEALS SQ Last administered on 08/25/16 17:23; Start 08/25/16 at 08:00; Stop 08/25/16 at 19:32; Status DC Dextrose 12.5 gm PRN Q15MIN PRN IV SEE COMMENTS; Start 08/25/16 at 07:30 Insulin Aspart 10 units 10 units 1X ONCE SQ Last administered on 08/25/16 08: 08; Start 08/25/16 at 08:00; Stop 08/25/16 at 08:01; Status DC Sodium Chloride 1,000 ml @ 50 mls/hr Q20H IV Last administered on 08/31/16 07: 36; Start 08/25/16 at 11:00 Potassium Chloride/Sodium Chloride (Iv Sodium Chloride 0.45%) 1,015 ml @ 75 mls /hr 1X ONCE IV Last administered on 08/25/16 10:55; Start 08/25/16 at 11:00; Stop 08/26/16 at 00:31; Status DC Insulin Aspart 10 units 10 units 1X ONCE SQ Last administered on 08/25/16 12: 42; Start 08/25/16 at 12:45; Stop 08/25/16 at 12:46; Status DC Vancomycin HCl/ Sodium Chloride (Iv Sodium Chloride 0.9% 250ml) 250 ml @ 250 mls/hr Q18H IV Last administered on 08/26/16 06:39; Start 08/25/16 at 13:00; Stop 08/26/16 at 08:18; Status DC Insulin Aspart 0-9 UNITS Q6HRS SQ Last administered on 08/31/16 11:59; Start at 00:00 Levofloxacin/ Dextrose 100 ml @ 100 mls/hr 1X ONCE IV Last administered on 09:28; Start 08/26/16 at 09:30; Stop 08/26/16 at 10:29; Status DC Potassium Chloride/Sodium Chloride (Iv Sodium Chloride 0.45%) 1,015 ml @ 75 mls /hr 1X ONCE IV Last administered on 08/26/16 15:23; Start 08/26/16 at 11:00; Stop 08/27/16 at 00:31; Status DC Hydrocortisone Sodium Succinate 100 mg 100 mg BID IV Last administered on 08:15; Start 08/27/16 at 09:00; Stop 08/30/16 at 09:26; Status DC Amino Acids/ Electrolytes/ Dextrose 1,000 ml @ 80 mls/hr [id number] IV Last administered on 08/31/16 07:36; Start 08/27/16 at 12:30 Potassium Chloride (KCl Premix 20meq) 50 ml @ 50 mls/hr 1X ONCE IV Last administered on 08/27/16 15:29; Start 08/27/16 at 12:30; Stop 08/27/16 at 13:29; Status DC Insulin Aspart 15 units 15 units 1X ONCE SQ Last administered on 08/28/16 07: 13; Start 08/28/16 at 07:15; Stop 08/28/16 at 07:16; Status DC Propofol 100 ml @ As Directed STK-MED ONCE IV ; Start 08/29/16 at 16:23; Stop at 16:24; Status DC Propofol (Diprivan) 100 ml @ 0 mls/hr CONT PRN IV SEE I/O RECORD Last administered on 08/29/16 16:30; Start 08/29/16 at 18:00 Insulin Aspart 6 units 6 units 1X ONCE SQ Last administered on 08/30/16 08:18 ; Start 08/30/16 at 07:15; Stop 08/30/16 at 07:16; Status DC Potassium Chloride (KCl Premix 20meq) 50 ml @ 50 mls/hr Q1H IV Last administered on 08/30/16 12:00; Start 08/30/16 at 07:30; Stop 08/30/16 at 09:29; Status DC Hydrocortisone Sodium Succinate (Solu-Cortef) 50 mg BID IV Last administered on 08/31/16 09:28; Start 08/30/16 at 21:00; Stop 08/31/16 at 09:41; Status DC Insulin Aspart (Novolog) 10 units 1X ONCE SQ Last administered on 08/31/16 00: 49; Start 08/31/16 at 01:00; Stop 08/31/16 at 01:01; Status DC Hydrocortisone Sodium Succinate (Solu-Cortef) 25 mg BID IV ; Start 08/31/16 at 21 :00 Insulin Aspart (Novolog) 10 units TIDAC SQ Last administered on 08/31/16 11:58 ; Start 08/31/16 at 11:30 Insulin Detemir 15 units 15 units DAILY10 SQ Last administered on 08/31/16 11: 59; Start 08/31/16 at 11:30 Potassium Chloride (KCl Premix 20meq) 50 ml @ 50 mls/hr Q1H IV Last administered on 08/31/16 11:57; Start 08/31/16 at 12:00; Stop 08/31/16 at 15:59 Active Scripts Active Reported Milk Of Magnesia (Magnesium Hydroxide) 2,400 Mg/10 Ml Oral.susp 2,400 Mg PO DAILY PRN Dulcolax (Bisacodyl) 10 Mg Supp.rect 10 Mg RC PRN DAILY PRN Aspirin 325 Mg Tablet 1 Tab PEG DAILY Tylenol (Acetaminophen) 325 Mg Tablet 2 Tab PO PRN Q6HRS PRN Vitamin B Complex 1 Each Tablet 1 Tab PO DAILY Vitamin D3 (Cholecalciferol (Vitamin D3)) 1,000 Unit Tablet 2,000 Unit PO DAILY Keppra (Levetiracetam) 500 Mg Tablet 500 Mg PO BID Vitals/I & O Vital Sign - Last 24 Hours 08/30/16 08/30/16 08/30/16 08/30/16 13:00 14:00 15:00 15:30 Pulse 96 94 98 Resp 13 13 15 B/P 107/74 102/64 102/64 Pulse Ox 100 99 98 98 O2 Delivery Ventilator Nasal Cannula Nasal Cannula Nasal Cannula O2 Flow Rate 2.0 2.0 2.5 08/30/16 08/30/16 08/30/16 08/30/16 16:00 16:00 17:00 18:00 Temp 99.6 99.6 Pulse 99 100 100 Resp 18 20 18 B/P 98/62 96/62 94/60 Pulse Ox 99 100 100 O2 Delivery Nasal Cannula Nasal Cannula Nasal Cannula Nasal Cannula O2 Flow Rate 2.0 2.0 2.0 2.0 08/30/16 08/30/16 08/30/16 08/30/16 19:00 20:00 20:00 20:30 Temp 98.6 98.6 Pulse 105 100 Resp 17 B/P 96/54 94/55 Pulse Ox 99 99 100 O2 Delivery Nasal Cannula Nasal Cannula Nasal Cannula Nasal Cannula O2 Flow Rate 2.0 2.0 2.0 2.5 08/30/16 08/30/16 08/30/16 08/30/16 21:00 22:00 23:00 23:59 Pulse 100 102 92 Resp 30 18 12 B/P 105/61 115/73 113/63 Pulse Ox 100 97 97 O2 Delivery Nasal Cannula Nasal Cannula Nasal Cannula Nasal Cannula O2 Flow Rate 2.0 2.0 2.0 2.0 08/31/16 08/31/16 08/31/16 08/31/16 00:01 01:00 02:00 03:00 Temp 98.7 98.7 Pulse 91 102 108 90 Resp 28 27 22 B/P 105/67 110/62 107/66 108/62 Pulse Ox 100 96 98 98 O2 Delivery Nasal Cannula Nasal Cannula Nasal Cannula Nasal Cannula O2 Flow Rate 2.0 2.0 2.0 2.0 08/31/16 08/31/16 08/31/16 08/31/16 04:00 04:00 05:00 06:00 Temp 98.8 98.8 Pulse 96 96 95 Resp 20 11 21 B/P 122/85 114/68 113/73 Pulse Ox 98 99 98 O2 Delivery Nasal Cannula Nasal Cannula Nasal Cannula Nasal Cannula O2 Flow Rate 2.0 2.0 2.0 2.0 08/31/16 08/31/16 08/31/16 08/31/16 07:00 08:00 08:00 08:26 Temp 99.9 99.9 Pulse 87 99 Resp 20 18 B/P 114/74 119/66 Pulse Ox 97 98 100 O2 Delivery Nasal Cannula Nasal Cannula Nasal Cannula Nasal Cannula O2 Flow Rate 2.0 2.0 2.0 2.5 Intake and Output 08/30/16 08/30/16 08/31/16 15:00 23:00 07:00 Intake Total 0 ml 1932 ml 0 ml Output Total 900 ml 800 ml 1575 ml Balance -900 ml 1132 ml -1575 ml EUNICE CERVANTES MD Aug 31, 2016 12:44
[2016-08-31 13:42] LABS: ANISOCYTOSIS SLIGHT; PLT ESTIMATE DECREASED (ADEQUATE); POLYCHROMASIA SLIGHT
[2016-08-31] MEDS ORDERED: POTASSIUM CHLORIDE 20 MEQ/15 ML ORAL LIQUID. PEG ONE ×2 (14:30→15:00)
[2016-08-31 19:12] LABS: CALCIUM 7.5 mg/dL (8.5-10.1); GFR 93.9; POTASSIUM 4.2 mmol/L (3.5-5.1)
[2016-09-01] MEDS: PIPERACILLIN/TAZOBACTAM 3.375 GM in IV NORMAL SALINE 50ML 50 ML IV SCH ×2 (00:31→05:29)
[2016-09-01] MEDS: INSULIN ASPART 300 UNITS/3 ML INSULN.PEN SQ SCH ×6 (00:35→17:40)
[2016-09-01 03:00] VITALS: BP 121/78
[2016-09-01 03:48] LABS: BASO % 0 % (0-3); EOS % 0 % (0-3); HEMOGLOBIN 7.8 g/dL (13.0-17.5); LYMPH # 1.3 x10^3/uL (1.0-4.8); LYMPH % 9 % (24-48); MEAN CORPUSCULAR HEMOGLOBIN 35 pg (25-35); MEAN CORPUSCULAR HGB CONC 34 g/dL (31-37); MEAN CORPUSCULAR VOLUME 103 fL (79-100); MONO % 6 % (0-9); NEUT % 85 % (31-73); PLATELET COUNT 96 x10^3/uL (140-400); RED BLOOD COUNT 2.23 x10^6/uL (4.30-5.70); RED CELL DISTRIBUTION WIDTH 14.3 % (11.5-14.5); WHITE BLOOD COUNT 14.4 x10^3/uL (4.0-11.0)
[2016-09-01 04:03] LABS: ALBUMIN 1.4 g/dL (3.4-5.0); ALBUMIN/GLOBULIN RATIO 0.4 (1.0-1.7); CALCIUM 7.4 mg/dL (8.5-10.1); GFR 93.9; POTASSIUM 3.6 mmol/L (3.5-5.1); TOTAL BILIRUBIN 0.5 mg/dL (0.2-1.0); TOTAL PROTEIN 5.3 g/dL (6.4-8.2)
[2016-09-01 07:00] VITALS: BP 119/73
[2016-09-01] MEDS: IPRATRPIUM/ALBUTEROL 0.5/2.5MG 3 ML NEBU. NEB SCH ×4 (08:09→19:47)
--- NOTE | 2016-09-01 08:58 | PDOC ---
Infectious Disease Note Subjective Subjective , awake ROS ROS unable to do Vital Sign Vital Signs Vital Signs Date Time Temp Pulse Resp B/P Pulse Ox O2 Delivery O2 Flow Rate FiO2 09/01/16 08:14 Nasal Cannula 2.0 09/01/16 07:00 97.9 96 22 119/73 95 97.9 Physical Exam PHYSICAL EXAM GENERAL: NAD, Alert HEENT: PERRL, OC/OP NECK: Supple, no JVD, no LN LUNGS: Clear HEART: S1S2, no gallop, no murmur ABD: Soft, NT, no organomegaly, no rebound EXT: No edema, no cyanosis OFFICE TECHNOLOGY PROFESSOR: Alert, non verbal SKIN: No rash IV: ok Labs Lab Laboratory Tests Test 08/31/16 10:00 08/31/16 16:34 08/31/16 18:30 08/31/16 23:35 White Blood Count 18.1x10^3/uL (4.0-11.0) Red Blood Count 2.33x10^6/uL (4.30-5.70) Hemoglobin 8.0g/dL (13.0-17.5) Hematocrit 23.8% (39.0-53.0) Mean Corpuscular Volume 102fL (79-100) Mean Corpuscular Hemoglobin 34pg (25-35) Mean Corpuscular Hemoglobin Concent 33g/dL (31-37) Red Cell Distribution Width 14.3% (11.5-14.5) Platelet Count 85x10^3/uL (140-400) Neutrophils (%) (Auto) 84% (31-73) Lymphocytes (%) (Auto) 11% (24-48) Monocytes (%) (Auto) 5% (0-9) Neutrophils # (Auto) 15.1x10^3uL (1.8-7.7) Lymphocytes # (Auto) 1.9x10^3/uL (1.0-4.8) Monocytes # (Auto) 1.0x10^3/uL (0.0-1.1) Segmented Neutrophils % 73% (35-66) Band Neutrophils % 12% (0-9) Lymphocytes % 9% (24-48) Monocytes % 4% (0-10) Metamyelocytes % 1% (0-0) Myelocytes % 1% (0-0) Platelet Estimate Decreased (ADEQUATE) Polychromasia Slight Anisocytosis Slight Sodium Level 150mmol/L (136-145) 150mmol/L (136-145) Potassium Level 2.4mmol/L (3.5-5.1) 4.2mmol/L (3.5-5.1) Chloride Level 110mmol/L (98-107) 113mmol/L (98-107) Carbon Dioxide Level 33mmol/L (21-32) 30mmol/L (21-32) Anion Gap 7 (6-14) 7 (6-14) Blood Urea Nitrogen 25mg/dL (8-26) 23mg/dL (8-26) Creatinine 1.0mg/dL (0.7-1.3) 1.0mg/dL (0.7-1.3) Estimated GFR (Cockcroft-Gault) 93.9 93.9 Glucose Level 289mg/dL (70-99) 240mg/dL (70-99) Calcium Level 7.5mg/dL (8.5-10.1) 7.5mg/dL (8.5-10.1) Magnesium Level 1.9mg/dL (1.8-2.4) Glucose (Fingerstick) 221mg/dL (70-99) 274mg/dL (70-99) Test 09/01/16 03:25 09/01/16 05:19 09/01/16 07:38 White Blood Count 14.4x10^3/uL (4.0-11.0) Red Blood Count 2.23x10^6/uL (4.30-5.70) Hemoglobin 7.8g/dL (13.0-17.5) Hematocrit 23.0% (39.0-53.0) Mean Corpuscular Volume 103fL (79-100) Mean Corpuscular Hemoglobin 35pg (25-35) Mean Corpuscular Hemoglobin Concent 34g/dL (31-37) Red Cell Distribution Width 14.3% (11.5-14.5) Platelet Count 96x10^3/uL (140-400) Neutrophils (%) (Auto) 85% (31-73) Lymphocytes (%) (Auto) 9% (24-48) Monocytes (%) (Auto) 6% (0-9) Eosinophils (%) (Auto) 0% (0-3) Basophils (%) (Auto) 0% (0-3) Neutrophils # (Auto) 12.3x10^3uL (1.8-7.7) Lymphocytes # (Auto) 1.3x10^3/uL (1.0-4.8) Monocytes # (Auto) 0.8x10^3/uL (0.0-1.1) Eosinophils # (Auto) 0.0x10^3/uL (0.0-0.7) Basophils # (Auto) 0.0x10^3/uL (0.0-0.2) Sodium Level 148mmol/L (136-145) Potassium Level 3.6mmol/L (3.5-5.1) Chloride Level 110mmol/L (98-107) Carbon Dioxide Level 33mmol/L (21-32) Anion Gap 5 (6-14) Blood Urea Nitrogen 22mg/dL (8-26) Creatinine 1.0mg/dL (0.7-1.3) Estimated GFR (Cockcroft-Gault) 93.9 BUN/Creatinine Ratio 22 (6-20) Glucose Level 342mg/dL (70-99) Calcium Level 7.4mg/dL (8.5-10.1) Total Bilirubin 0.5mg/dL (0.2-1.0) Aspartate Amino Transf (AST/SGOT) 28U/L (15-37) Alanine Aminotransferase (ALT/SGPT) 24U/L (16-63) Alkaline Phosphatase 59U/L (46-116) Total Protein 5.3g/dL (6.4-8.2) Albumin 1.4g/dL (3.4-5.0) Albumin/Globulin Ratio 0.4 (1.0-1.7) Glucose (Fingerstick) 356mg/dL (70-99) 321mg/dL (70-99) Objective Assessment Severe Sepsis - improved Hyperglycemia -improved ? early DIC vs sepsis with thrombocytopenia and coagulopathy - stable Hydronephrosis on U/S - May need nephrostomy tubes per urology Acute Resp failure - intubated Lactic acidosis MAHAD with h/o hydronephrosis -better Bandemia/leukocytosis - on Hydrocortisone Hematuria - improved UTI - Proteus H/o granulomas Plan Plan of Care Cont Zosyn change to po vantin d/c to [facility] Louie MD Sep 01, 2016 08:58
[2016-09-01] MEDS: PANTOPRAZOLE IV PUSH 40 MG VIAL. IVP SCH (09:26)
[2016-09-01] MEDS: POTASSIUM CHLORIDE 20 MEQ/15 ML ORAL LIQUID. PEG SCH (09:27)
[2016-09-01] MEDS: HYDROCORTISONE SOD SUCC/PF 100 MG/2 ML VIAL. IV SCH (09:27)
[2016-09-01] MEDS: CHOLECALCIFEROL (VITAMIN D3) 1,000 UNIT TABLET PO SCH (09:27)
[2016-09-01] MEDS: VITAMIN B COMPLEX TABLET. PO SCH (09:27)
[2016-09-01] MEDS: ASPIRIN 325 MG TABLET PEG SCH (09:27)
[2016-09-01] MEDS: LEVOTHYROXINE SODIUM 50 MCG in IV NORMAL SALINE 50ML 5 ML IVP SCH (09:28)
[2016-09-01] MEDS: CEFPODOXIME PROXETIL 100 MG TABLET PO SCH ×2 (09:33→20:51)
--- NOTE | 2016-09-01 09:39 | PDOC ---
Objective: Objective: Per RN - increased residual overnight w/ slow feeding rate. Vital Signs: Vital Signs Date Time Temp Pulse Resp B/P Pulse Ox O2 Delivery O2 Flow Rate FiO2 09/01/16 08:14 Nasal Cannula 2.0 09/01/16 07:00 97.9 96 22 119/73 95 97.9 Labs: Laboratory Tests Test 08/31/16 16:34 08/31/16 23:35 09/01/16 05:19 09/01/16 07:38 Glucose (Fingerstick) 221mg/dL (70-99) 274mg/dL (70-99) 356mg/dL (70-99) 321mg/dL (70-99) Imaging: KUB 09/01/16 PENDING PE: GEN: NAD LUNGS: coarse rhonchi HEART: RRR ABD: NABS, S/ND/NT, PEG in place NEURO/PSYCH: awake A/P: PEG in place -suspected ileus, feedings restarted 08/31 after BM -- Increased residuals w/ slow rate per staff. Continue tube feeds, add Reglan. LUCIO YODER Sep 01, 2016 09:39
--- NOTE | 2016-09-01 09:51 | RAD ---
AP abdomen 09/01/2016 Clinical history: Ileus. An AP portable supine digital radiograph of the abdomen/pelvis was obtained. Comparison study is dated 08/29/2016. A gastrostomy tube overlies the body the stomach, unchanged. The abdominal bowel gas pattern is nonobstructive. Calcified granulomas overlie the spleen. No radiopaque calculus is seen. The osseous structures are unchanged. Impression: Nonobstructive bowel gas pattern.
[2016-09-01] MEDS: LEVETIRACETAM 500 MG in IV NORMAL SALINE 100ML 100 ML IV SCH ×2 (10:21→20:51)
[2016-09-01] MEDS: AA 4.25%/CALCIUM/LYTES/D5W 1,000 ML IV SCH (10:22)
[2016-09-01 11:00] VITALS: BP 137/84
--- NOTE | 2016-09-01 12:10 | PDOC ---
PULMONARY PROGRESS NOTES Subjective extubated 08/30 no soa Vitals Vital Signs Date Time Temp Pulse Resp B/P Pulse Ox O2 Delivery O2 Flow Rate FiO2 09/01/16 11:00 98.8 113 18 137/84 91 Nasal Cannula 2.0 98.8 General: No acute distress Lungs: Clear Cardiovascular: S1, S2 Abdomen: Soft Extremities: Other (some edema) Skin: Warm Labs Laboratory Tests Test 08/30/16 18:20 08/31/16 00:03 08/31/16 06:13 08/31/16 10:00 Glucose (Fingerstick) 344mg/dL (70-99) 360mg/dL (70-99) 355mg/dL (70-99) White Blood Count 18.1x10^3/uL (4.0-11.0) Red Blood Count 2.33x10^6/uL (4.30-5.70) Hemoglobin 8.0g/dL (13.0-17.5) Hematocrit 23.8% (39.0-53.0) Mean Corpuscular Volume 102fL (79-100) Mean Corpuscular Hemoglobin 34pg (25-35) Mean Corpuscular Hemoglobin Concent 33g/dL (31-37) Red Cell Distribution Width 14.3% (11.5-14.5) Platelet Count 85x10^3/uL (140-400) Neutrophils (%) (Auto) 84% (31-73) Lymphocytes (%) (Auto) 11% (24-48) Monocytes (%) (Auto) 5% (0-9) Neutrophils # (Auto) 15.1x10^3uL (1.8-7.7) Lymphocytes # (Auto) 1.9x10^3/uL (1.0-4.8) Monocytes # (Auto) 1.0x10^3/uL (0.0-1.1) Segmented Neutrophils % 73% (35-66) Band Neutrophils % 12% (0-9) Lymphocytes % 9% (24-48) Monocytes % 4% (0-10) Metamyelocytes % 1% (0-0) Myelocytes % 1% (0-0) Platelet Estimate Decreased (ADEQUATE) Polychromasia Slight Anisocytosis Slight Sodium Level 150mmol/L (136-145) Potassium Level 2.4mmol/L (3.5-5.1) Chloride Level 110mmol/L (98-107) Carbon Dioxide Level 33mmol/L (21-32) Anion Gap 7 (6-14) Blood Urea Nitrogen 25mg/dL (8-26) Creatinine 1.0mg/dL (0.7-1.3) Estimated GFR (Cockcroft-Gault) 93.9 Glucose Level 289mg/dL (70-99) Calcium Level 7.5mg/dL (8.5-10.1) Magnesium Level 1.9mg/dL (1.8-2.4) Test 08/31/16 16:34 08/31/16 18:30 08/31/16 23:35 09/01/16 03:25 Glucose (Fingerstick) 221mg/dL (70-99) 274mg/dL (70-99) Sodium Level 150mmol/L (136-145) 148mmol/L (136-145) Potassium Level 4.2mmol/L (3.5-5.1) 3.6mmol/L (3.5-5.1) Chloride Level 113mmol/L (98-107) 110mmol/L (98-107) Carbon Dioxide Level 30mmol/L (21-32) 33mmol/L (21-32) Anion Gap 7 (6-14) 5 (6-14) Blood Urea Nitrogen 23mg/dL (8-26) 22mg/dL (8-26) Creatinine 1.0mg/dL (0.7-1.3) 1.0mg/dL (0.7-1.3) Estimated GFR (Cockcroft-Gault) 93.9 93.9 Glucose Level 240mg/dL (70-99) 342mg/dL (70-99) Calcium Level 7.5mg/dL (8.5-10.1) 7.4mg/dL (8.5-10.1) White Blood Count 14.4x10^3/uL (4.0-11.0) Red Blood Count 2.23x10^6/uL (4.30-5.70) Hemoglobin 7.8g/dL (13.0-17.5) Hematocrit 23.0% (39.0-53.0) Mean Corpuscular Volume 103fL (79-100) Mean Corpuscular Hemoglobin 35pg (25-35) Mean Corpuscular Hemoglobin Concent 34g/dL (31-37) Red Cell Distribution Width 14.3% (11.5-14.5) Platelet Count 96x10^3/uL (140-400) Neutrophils (%) (Auto) 85% (31-73) Lymphocytes (%) (Auto) 9% (24-48) Monocytes (%) (Auto) 6% (0-9) Eosinophils (%) (Auto) 0% (0-3) Basophils (%) (Auto) 0% (0-3) Neutrophils # (Auto) 12.3x10^3uL (1.8-7.7) Lymphocytes # (Auto) 1.3x10^3/uL (1.0-4.8) Monocytes # (Auto) 0.8x10^3/uL (0.0-1.1) Eosinophils # (Auto) 0.0x10^3/uL (0.0-0.7) Basophils # (Auto) 0.0x10^3/uL (0.0-0.2) BUN/Creatinine Ratio 22 (6-20) Total Bilirubin 0.5mg/dL (0.2-1.0) Aspartate Amino Transf (AST/SGOT) 28U/L (15-37) Alanine Aminotransferase (ALT/SGPT) 24U/L (16-63) Alkaline Phosphatase 59U/L (46-116) Total Protein 5.3g/dL (6.4-8.2) Albumin 1.4g/dL (3.4-5.0) Albumin/Globulin Ratio 0.4 (1.0-1.7) Test 09/01/16 05:19 09/01/16 07:38 09/01/16 11:56 Glucose (Fingerstick) 356mg/dL (70-99) 321mg/dL (70-99) 332mg/dL (70-99) Laboratory Tests Test 08/31/16 16:34 08/31/16 18:30 08/31/16 23:35 09/01/16 03:25 Glucose (Fingerstick) 221mg/dL (70-99) 274mg/dL (70-99) Sodium Level 150mmol/L (136-145) 148mmol/L (136-145) Potassium Level 4.2mmol/L (3.5-5.1) 3.6mmol/L (3.5-5.1) Chloride Level 113mmol/L (98-107) 110mmol/L (98-107) Carbon Dioxide Level 30mmol/L (21-32) 33mmol/L (21-32) Anion Gap 7 (6-14) 5 (6-14) Blood Urea Nitrogen 23mg/dL (8-26) 22mg/dL (8-26) Creatinine 1.0mg/dL (0.7-1.3) 1.0mg/dL (0.7-1.3) Estimated GFR (Cockcroft-Gault) 93.9 93.9 Glucose Level 240mg/dL (70-99) 342mg/dL (70-99) Calcium Level 7.5mg/dL (8.5-10.1) 7.4mg/dL (8.5-10.1) White Blood Count 14.4x10^3/uL (4.0-11.0) Red Blood Count 2.23x10^6/uL (4.30-5.70) Hemoglobin 7.8g/dL (13.0-17.5) Hematocrit 23.0% (39.0-53.0) Mean Corpuscular Volume 103fL (79-100) Mean Corpuscular Hemoglobin 35pg (25-35) Mean Corpuscular Hemoglobin Concent 34g/dL (31-37) Red Cell Distribution Width 14.3% (11.5-14.5) Platelet Count 96x10^3/uL (140-400) Neutrophils (%) (Auto) 85% (31-73) Lymphocytes (%) (Auto) 9% (24-48) Monocytes (%) (Auto) 6% (0-9) Eosinophils (%) (Auto) 0% (0-3) Basophils (%) (Auto) 0% (0-3) Neutrophils # (Auto) 12.3x10^3uL (1.8-7.7) Lymphocytes # (Auto) 1.3x10^3/uL (1.0-4.8) Monocytes # (Auto) 0.8x10^3/uL (0.0-1.1) Eosinophils # (Auto) 0.0x10^3/uL (0.0-0.7) Basophils # (Auto) 0.0x10^3/uL (0.0-0.2) BUN/Creatinine Ratio 22 (6-20) Total Bilirubin 0.5mg/dL (0.2-1.0) Aspartate Amino Transf (AST/SGOT) 28U/L (15-37) Alanine Aminotransferase (ALT/SGPT) 24U/L (16-63) Alkaline Phosphatase 59U/L (46-116) Total Protein 5.3g/dL (6.4-8.2) Albumin 1.4g/dL (3.4-5.0) Albumin/Globulin Ratio 0.4 (1.0-1.7) Test 09/01/16 05:19 09/01/16 07:38 09/01/16 11:56 Glucose (Fingerstick) 356mg/dL (70-99) 321mg/dL (70-99) 332mg/dL (70-99) Medications Active Scripts Medications Dose Route/Sig Days Date Category Milk Of Magnesia (Magnesium Hydroxide) 2,400 Mg/10 Ml Oral.susp 2,400 Mg PO DAILY PRN 08/21/15 Reported Dulcolax (Bisacodyl) 10 Mg Supp.rect 10 Mg RC PRN DAILY PRN 08/21/15 Reported Aspirin 325 Mg Tablet 1 Tab PEG DAILY 08/02/15 Reported Tylenol (Acetaminophen) 325 Mg Tablet 2 Tab PO PRN Q6HRS PRN 08/02/15 Reported Vitamin B Complex 1 Each Tablet 1 Tab PO DAILY 07/25/15 Reported Vitamin D3 (Cholecalciferol (Vitamin D3)) 1,000 Unit Tablet 2,000 Unit PO DAILY 07/25/15 Reported Keppra (Levetiracetam) 500 Mg Tablet 500 Mg PO BID 07/25/15 Reported Impression . 1. Acute hypoxic respiratory failure secondary septic shock, resolved, extubated 08/30 2. Septic shock cultures so far negative, resolved 3. Abnormal chest x-ray with initial x-ray showing infiltrate 4. Acute severe metabolic acidosis with severe lactic acidosis secondary to sepsis/septic shock. MAHAD contributing to metabolic acidosis, improved 5. Hematuria 6. Urinary tract infection. 7. Coagulopathy, most likely related to early disseminated intravascular coagulation. 8. Underlying Down's syndrome 9. Dysphagia S/P PEG Plan . nasal canula replace K prn repeat H/H TF decrease steroids d/w RN/ Dr Nina pulmonary status stable will see SADA Lemon MD Sep 01, 2016 12:10
[2016-09-01] MEDS: METOCLOPRAMIDE HCL 10 MG/2 ML VIAL. IV SCH ×3 (13:09→20:50)
--- NOTE | 2016-09-01 14:20 | PDOC ---
PROGRESS NOTES Chief Complaint Chief Complaint Resp failure - was intubated, breathing werll 1. Severe Sepsis, pneumonia 2. PNA, bed bound, , aspiration 3. Bed bound, non verbal, hx down's, and hx CVA 4. Dysphagia, indwelling PEG 5 MAHAD, vasomotor, now recovery phase with marked (critical) hypokalemia, 6. Gap metabolic acidosis, recent vomiting, severe sepsis 7. hypothyroidism 8. down syndrome 9. possible gastroparesis plan: 1. fu with pulm, id, GI 2. slowly PEG feeding with 9, KUB today ruled out obstruction 3. change iv abx to po as per ID 4. on NC 2 L 4. INCREASE insulin ,aspart 10u q6h, levemir 20 qhs, ssi dc steroid 5. hope to dc in 1-2 ds back home with HH History of Present Illness History of Present Illness DW RN code status changed to DNR on on this admit NON VERbal PEG feeding, chronic. now has residual, hyperglycemia Vitals Vitals Vital Signs Date Time Temp Pulse Resp B/P Pulse Ox O2 Delivery O2 Flow Rate FiO2 09/01/16 12:13 Nasal Cannula 2.0 09/01/16 11:00 98.8 113 18 137/84 91 98.8 Physical Exam Physical Exam no follow commands or talk as baseline General: Alert, No acute distress, Other ( awake, ) Heart: Regular rate, No murmurs Lungs: Clear Abdomen: Normal bowel sounds, Soft, No tenderness Extremities: No clubbing Skin: No breakdown, No significant lesion Labs LABS Laboratory Tests Test 08/31/16 16:34 08/31/16 18:30 08/31/16 23:35 09/01/16 03:25 Glucose (Fingerstick) 221mg/dL (70-99) 274mg/dL (70-99) Sodium Level 150mmol/L (136-145) 148mmol/L (136-145) Potassium Level 4.2mmol/L (3.5-5.1) 3.6mmol/L (3.5-5.1) Chloride Level 113mmol/L (98-107) 110mmol/L (98-107) Carbon Dioxide Level 30mmol/L (21-32) 33mmol/L (21-32) Anion Gap 7 (6-14) 5 (6-14) Blood Urea Nitrogen 23mg/dL (8-26) 22mg/dL (8-26) Creatinine 1.0mg/dL (0.7-1.3) 1.0mg/dL (0.7-1.3) Estimated GFR (Cockcroft-Gault) 93.9 93.9 Glucose Level 240mg/dL (70-99) 342mg/dL (70-99) Calcium Level 7.5mg/dL (8.5-10.1) 7.4mg/dL (8.5-10.1) White Blood Count 14.4x10^3/uL (4.0-11.0) Red Blood Count 2.23x10^6/uL (4.30-5.70) Hemoglobin 7.8g/dL (13.0-17.5) Hematocrit 23.0% (39.0-53.0) Mean Corpuscular Volume 103fL (79-100) Mean Corpuscular Hemoglobin 35pg (25-35) Mean Corpuscular Hemoglobin Concent 34g/dL (31-37) Red Cell Distribution Width 14.3% (11.5-14.5) Platelet Count 96x10^3/uL (140-400) Neutrophils (%) (Auto) 85% (31-73) Lymphocytes (%) (Auto) 9% (24-48) Monocytes (%) (Auto) 6% (0-9) Eosinophils (%) (Auto) 0% (0-3) Basophils (%) (Auto) 0% (0-3) Neutrophils # (Auto) 12.3x10^3uL (1.8-7.7) Lymphocytes # (Auto) 1.3x10^3/uL (1.0-4.8) Monocytes # (Auto) 0.8x10^3/uL (0.0-1.1) Eosinophils # (Auto) 0.0x10^3/uL (0.0-0.7) Basophils # (Auto) 0.0x10^3/uL (0.0-0.2) BUN/Creatinine Ratio 22 (6-20) Total Bilirubin 0.5mg/dL (0.2-1.0) Aspartate Amino Transf (AST/SGOT) 28U/L (15-37) Alanine Aminotransferase (ALT/SGPT) 24U/L (16-63) Alkaline Phosphatase 59U/L (46-116) Total Protein 5.3g/dL (6.4-8.2) Albumin 1.4g/dL (3.4-5.0) Albumin/Globulin Ratio 0.4 (1.0-1.7) Test 09/01/16 05:19 09/01/16 07:38 09/01/16 11:56 Glucose (Fingerstick) 356mg/dL (70-99) 321mg/dL (70-99) 332mg/dL (70-99) Review of Systems Review of Systems no fever, chills, sob or chest pain Assessment and Plan Assessmemt and Plan Problems Medical Problems: (1) HAP (hospital-acquired pneumonia) Status: Acute (2) Pneumonia Status: Acute Problems: Comment Review of Relevant I have reviewed the following items kassie (where applicable) has been applied. Labs Laboratory Tests Test 08/30/16 18:20 08/31/16 00:03 08/31/16 06:13 08/31/16 10:00 Glucose (Fingerstick) 344mg/dL (70-99) 360mg/dL (70-99) 355mg/dL (70-99) White Blood Count 18.1x10^3/uL (4.0-11.0) Red Blood Count 2.33x10^6/uL (4.30-5.70) Hemoglobin 8.0g/dL (13.0-17.5) Hematocrit 23.8% (39.0-53.0) Mean Corpuscular Volume 102fL (79-100) Mean Corpuscular Hemoglobin 34pg (25-35) Mean Corpuscular Hemoglobin Concent 33g/dL (31-37) Red Cell Distribution Width 14.3% (11.5-14.5) Platelet Count 85x10^3/uL (140-400) Neutrophils (%) (Auto) 84% (31-73) Lymphocytes (%) (Auto) 11% (24-48) Monocytes (%) (Auto) 5% (0-9) Neutrophils # (Auto) 15.1x10^3uL (1.8-7.7) Lymphocytes # (Auto) 1.9x10^3/uL (1.0-4.8) Monocytes # (Auto) 1.0x10^3/uL (0.0-1.1) Segmented Neutrophils % 73% (35-66) Band Neutrophils % 12% (0-9) Lymphocytes % 9% (24-48) Monocytes % 4% (0-10) Metamyelocytes % 1% (0-0) Myelocytes % 1% (0-0) Platelet Estimate Decreased (ADEQUATE) Polychromasia Slight Anisocytosis Slight Sodium Level 150mmol/L (136-145) Potassium Level 2.4mmol/L (3.5-5.1) Chloride Level 110mmol/L (98-107) Carbon Dioxide Level 33mmol/L (21-32) Anion Gap 7 (6-14) Blood Urea Nitrogen 25mg/dL (8-26) Creatinine 1.0mg/dL (0.7-1.3) Estimated GFR (Cockcroft-Gault) 93.9 Glucose Level 289mg/dL (70-99) Calcium Level 7.5mg/dL (8.5-10.1) Magnesium Level 1.9mg/dL (1.8-2.4) Test 08/31/16 16:34 08/31/16 18:30 08/31/16 23:35 09/01/16 03:25 Glucose (Fingerstick) 221mg/dL (70-99) 274mg/dL (70-99) Sodium Level 150mmol/L (136-145) 148mmol/L (136-145) Potassium Level 4.2mmol/L (3.5-5.1) 3.6mmol/L (3.5-5.1) Chloride Level 113mmol/L (98-107) 110mmol/L (98-107) Carbon Dioxide Level 30mmol/L (21-32) 33mmol/L (21-32) Anion Gap 7 (6-14) 5 (6-14) Blood Urea Nitrogen 23mg/dL (8-26) 22mg/dL (8-26) Creatinine 1.0mg/dL (0.7-1.3) 1.0mg/dL (0.7-1.3) Estimated GFR (Cockcroft-Gault) 93.9 93.9 Glucose Level 240mg/dL (70-99) 342mg/dL (70-99) Calcium Level 7.5mg/dL (8.5-10.1) 7.4mg/dL (8.5-10.1) White Blood Count 14.4x10^3/uL (4.0-11.0) Red Blood Count 2.23x10^6/uL (4.30-5.70) Hemoglobin 7.8g/dL (13.0-17.5) Hematocrit 23.0% (39.0-53.0) Mean Corpuscular Volume 103fL (79-100) Mean Corpuscular Hemoglobin 35pg (25-35) Mean Corpuscular Hemoglobin Concent 34g/dL (31-37) Red Cell Distribution Width 14.3% (11.5-14.5) Platelet Count 96x10^3/uL (140-400) Neutrophils (%) (Auto) 85% (31-73) Lymphocytes (%) (Auto) 9% (24-48) Monocytes (%) (Auto) 6% (0-9) Eosinophils (%) (Auto) 0% (0-3) Basophils (%) (Auto) 0% (0-3) Neutrophils # (Auto) 12.3x10^3uL (1.8-7.7) Lymphocytes # (Auto) 1.3x10^3/uL (1.0-4.8) Monocytes # (Auto) 0.8x10^3/uL (0.0-1.1) Eosinophils # (Auto) 0.0x10^3/uL (0.0-0.7) Basophils # (Auto) 0.0x10^3/uL (0.0-0.2) BUN/Creatinine Ratio 22 (6-20) Total Bilirubin 0.5mg/dL (0.2-1.0) Aspartate Amino Transf (AST/SGOT) 28U/L (15-37) Alanine Aminotransferase (ALT/SGPT) 24U/L (16-63) Alkaline Phosphatase 59U/L (46-116) Total Protein 5.3g/dL (6.4-8.2) Albumin 1.4g/dL (3.4-5.0) Albumin/Globulin Ratio 0.4 (1.0-1.7) Test 09/01/16 05:19 09/01/16 07:38 09/01/16 11:56 Glucose (Fingerstick) 356mg/dL (70-99) 321mg/dL (70-99) 332mg/dL (70-99) Laboratory Tests Test 08/31/16 16:34 08/31/16 18:30 08/31/16 23:35 09/01/16 03:25 Glucose (Fingerstick) 221mg/dL (70-99) 274mg/dL (70-99) Sodium Level 150mmol/L (136-145) 148mmol/L (136-145) Potassium Level 4.2mmol/L (3.5-5.1) 3.6mmol/L (3.5-5.1) Chloride Level 113mmol/L (98-107) 110mmol/L (98-107) Carbon Dioxide Level 30mmol/L (21-32) 33mmol/L (21-32) Anion Gap 7 (6-14) 5 (6-14) Blood Urea Nitrogen 23mg/dL (8-26) 22mg/dL (8-26) Creatinine 1.0mg/dL (0.7-1.3) 1.0mg/dL (0.7-1.3) Estimated GFR (Cockcroft-Gault) 93.9 93.9 Glucose Level 240mg/dL (70-99) 342mg/dL (70-99) Calcium Level 7.5mg/dL (8.5-10.1) 7.4mg/dL (8.5-10.1) White Blood Count 14.4x10^3/uL (4.0-11.0) Red Blood Count 2.23x10^6/uL (4.30-5.70) Hemoglobin 7.8g/dL (13.0-17.5) Hematocrit 23.0% (39.0-53.0) Mean Corpuscular Volume 103fL (79-100) Mean Corpuscular Hemoglobin 35pg (25-35) Mean Corpuscular Hemoglobin Concent 34g/dL (31-37) Red Cell Distribution Width 14.3% (11.5-14.5) Platelet Count 96x10^3/uL (140-400) Neutrophils (%) (Auto) 85% (31-73) Lymphocytes (%) (Auto) 9% (24-48) Monocytes (%) (Auto) 6% (0-9) Eosinophils (%) (Auto) 0% (0-3) Basophils (%) (Auto) 0% (0-3) Neutrophils # (Auto) 12.3x10^3uL (1.8-7.7) Lymphocytes # (Auto) 1.3x10^3/uL (1.0-4.8) Monocytes # (Auto) 0.8x10^3/uL (0.0-1.1) Eosinophils # (Auto) 0.0x10^3/uL (0.0-0.7) Basophils # (Auto) 0.0x10^3/uL (0.0-0.2) BUN/Creatinine Ratio 22 (6-20) Total Bilirubin 0.5mg/dL (0.2-1.0) Aspartate Amino Transf (AST/SGOT) 28U/L (15-37) Alanine Aminotransferase (ALT/SGPT) 24U/L (16-63) Alkaline Phosphatase 59U/L (46-116) Total Protein 5.3g/dL (6.4-8.2) Albumin 1.4g/dL (3.4-5.0) Albumin/Globulin Ratio 0.4 (1.0-1.7) Test 09/01/16 05:19 09/01/16 07:38 09/01/16 11:56 Glucose (Fingerstick) 356mg/dL (70-99) 321mg/dL (70-99) 332mg/dL (70-99) Microbiology 08/23/16 Blood Culture - Final, Complete NO GROWTH AFTER 5 DAYS 08/23/16 Urine Culture - Final, Complete 08/23/16 Urine Culture Result 1 (SHANON) - Final, Complete 08/23/16 Antimicrobic Susceptibility - Final, Complete Medications Current Medications Sodium Chloride 1,000 ml @ 1,000 mls/hr 1X ONCE IV Last administered on 11:16; Start 08/23/16 at 11:15; Stop 08/23/16 at 12:14; Status DC Sodium Chloride (Iv Sodium Chloride 0.9% 1000ml Bag) 1,000 ml @ 1,000 mls/hr 1X ONCE IV Last administered on 08/23/16 11:30; Start 08/23/16 at 11:30; Stop 08/23/16 at 12:29; Status DC Vancomycin HCl (Vanco Per Pharmacy) 1 each PRN DAILY PRN MC SEE COMMENTS Last administered on 08/25/16 13:04; Start 08/23/16 at 11:30; Stop 08/26/16 at 08:18; Status DC Piperacillin Sod/ Tazobactam Sod 1 each 1 each PRN DAILY PRN MC SEE COMMENTS; Start 08/23/16 at 11:30; Stop 08/25/16 at 09:54; Status DC Levofloxacin/ Dextrose 100 ml @ 100 mls/hr 1X ONCE IV Last administered on 12:58; Start 08/23/16 at 11:30; Stop 08/23/16 at 12:29; Status DC Piperacillin Sod/ Tazobactam Sod 4.5 gm/Sodium Chloride 100 ml @ 200 mls/hr 1X ONCE IV Last administered on 08/23/16 12:00; Start 08/23/16 at 12:00; Stop 08/23/16 at 12:29; Status DC Vancomycin HCl 1.5 gm/Sodium Chloride 500 ml @ 250 mls/hr 1X ONCE IV Last administered on 08/23/16 12:30; Start 08/23/16 at 12:30; Stop 08/23/16 at 14:29 ; Status DC Sodium Chloride 1,000 ml @ 1,000 mls/hr 1X ONCE IV Last administered on 12:46; Start 08/23/16 at 12:30; Stop 08/23/16 at 13:29; Status DC Piperacillin Sod/ Tazobactam Sod 3.375 gm/Sodium Chloride 50 ml @ 100 mls/hr Q6HRS IV Last administered on 09/01/16 05:29; Start 08/23/16 at 18:00; Stop 09/01/16 at 09:08; Status DC Vancomycin HCl/ Sodium Chloride (Iv Sodium Chloride 0.9% 250ml) 250 ml @ 250 mls/hr Q24H IV ; Start 08/24/16 at 13:00; Status Cancel Vancomycin HCl 1 each 1X ONCE MC ; Start 08/25/16 at 12:30; Stop 08/25/16 at 12: 31; Status DC Labetalol HCl (Normodyne) 10 mg PRN Q2HR PRN IVP HYPERTENSION, SEE COMMENTS; Start 08/23/16 at 15:45 Aspirin (Luis Armando Aspirin) 325 mg DAILY PEG Last administered on 09/01/16 09:27; Start 08/24/16 at 09:00 Bisacodyl (Dulcolax Supp) 10 mg PRN DAILY PRN RC CONSTIPATION Last administered on 08/29/16 15:48; Start 08/23/16 at 15:45 Vitamin D (Vitamin D3) 2,000 unit DAILY PO Last administered on 09/01/16 09:27 ; Start 08/24/16 at 09:00 Levetiracetam (Keppra) 500 mg BID PO ; Start 08/23/16 at 21:00; Stop 08/23/16 at 21:00; Status DC Vitamin B Complex (Hector B) 1 tab DAILY PO Last administered on 09/01/16 09:27; Start 08/24/16 at 09:00 Magnesium Hydroxide (Milk Of Magnesia) 2,400 mg PRN DAILY PRN PO CONSTIPATION; Start 08/23/16 at 15:45 Acetaminophen 500 mg 500 mg PRN Q6HRS PRN PO MILD PAIN / TEMP; Start 08/23/16 at 15:45 Levetiracetam/ Sodium Chloride (Keppra/Iv Sodium Chloride 0.9% 100ml) 105 ml @ 400 mls/hr Q12HR IV Last administered on 09/01/16 10:21; Start 08/23/16 at 21: 00 Pantoprazole Sodium (Protonix Vial) 40 mg DAILYAC IVP Last administered on 09:26; Start 08/24/16 at 07:30 Heparin Sodium (Porcine) 5000 unit 5,000 unit Q8HRS SQ ; Start 08/23/16 at 22:00 ; Stop 08/23/16 at 22:00; Status DC Sodium Bicarbonate/ Dextrose 1,150 ml @ 150 mls/hr Q7H40M IV Last administered on 08/25/16 08:05; Start 08/23/16 at 16:30; Stop 08/25/16 at 10:35; Status DC Sodium Bicarbonate 50 meq 1X ONCE IV Last administered on 08/23/16 16:24; Start 08/23/16 at 16:15; Stop 2/27/17 at 16:17; Status DC Albuterol/ Ipratropium 3 ml 3 ml RTQID NEB Last administered on 09/01/16 12:08 ; Start 08/23/16 at 20:00 Vancomycin HCl 750 mg/Sodium Chloride 250 ml @ 250 mls/hr Q24H IV Last administered on 08/24/16 12:15; Start 08/24/16 at 13:00; Stop 08/25/16 at 12:55 ; Status DC Norepinephrine Bitartrate 8 mg/ Sodium Chloride 258 ml @ 0 mls/hr CONT PRN IV SEE I/O RECORD Last administered on 08/25/16 00:28; Start 08/23/16 at 18:15; Stop 09/01/16 at 09:01; Status DC Sodium Chloride (Iv Sodium Chloride 0.9% 1000ml Bag) 1,000 ml @ 500 mls/hr Q2H IV Last administered on 08/23/16 17:00; Start 08/23/16 at 18:30; Stop at 20:29; Status DC Hydrocortisone Sodium Succinate (Solu-Cortef) 100 mg Q8HRS IV Last administered on 08/26/16 14:54; Start 08/23/16 at 22:30; Stop 08/26/16 at 16:49; Status DC Succinylcholine Chloride (Anectine) 200 mg STK-MED ONCE .ROUTE ; Start 08/24/16 at 04:15; Stop 08/24/16 at 04:16; Status DC Etomidate 20 mg 20 mg STK-MED ONCE IV ; Start 08/24/16 at 04:15; Stop 08/24/16 at 04:16; Status DC Fentanyl Citrate (Fentanyl 600 Mcg/30 ml HEADING MACHINE OPERATOR) 30 ml @ 0 mls/hr CONT PRN IV PROTOCOL Last administered on 08/30/16 04:54; Start 08/24/16 at 04:45 Fentanyl Citrate (Fentanyl 2ml Vial) 25 mcg PRN Q1HR PRN IV COMM Last administered on 08/29/16 07:44; Start 08/24/16 at 04:45; Stop 08/30/16 at 16:51; Status DC Fentanyl Citrate (Fentanyl 2ml Vial) 50 mcg PRN Q1HR PRN IV COMM; Start at 04:45; Status Cancel Chlorhexidine Gluconate 15 ml 15 ml BID MM Last administered on 08/30/16 08:15 ; Start 08/24/16 at 09:00; Stop 08/30/16 at 22:16; Status DC Midazolam HCl 100 ml @ 0 mls/hr CONT PRN IV PER PROTOCOL Last administered on 10:50; Start 08/24/16 at 04:45; Stop 09/01/16 at 09:02; Status DC Midazolam HCl 100 ml @ As Directed STK-MED ONCE IV ; Start 08/24/16 at 04:52; Stop 08/24/16 at 04:53; Status DC Sodium Chloride 1,000 ml @ 150 mls/hr Q6H40M IV Last administered on 06:13; Start 08/24/16 at 05:45; Stop 08/24/16 at 09:59; Status DC Vasopressin 40 unit/Dextrose 102 ml @ 6 mls/hr 1X ONCE IV Last administered on 08/24/16 06:12; Start 08/24/16 at 06:00; Stop 08/24/16 at 20:00; Status DC Phenylephrine HCl 20 mg/Sodium Chloride 252 ml @ 0 mls/hr CONT PRN IV SEE I/O RECORD Last administered on 08/24/16 07:28; Start 08/24/16 at 05:45 Albumin Human 500 ml @ 125 mls/hr 1X ONCE IV Last administered on 08/24/16 06:20; Start 08/24/16 at 05:45; Stop 08/24/16 at 09:44; Status DC Micafungin Sodium 100 mg/Dextrose 100 ml @ 100 mls/hr Q24H IV Last administered on 08/26/16 09:29; Start 08/24/16 at 09:00; Stop 08/27/16 at 07:37; Status DC Epinephrine HCl/ Sodium Chloride (Adrenalin/Iv Sodium Chloride 0.9% 250ml) 254 ml @ 0 mls/hr CONT PRN IV SEE I/O RECORD; Start 08/24/16 at 07:30; Status Cancel Epinephrine HCl (Adrenalin) 30 mg STK-MED ONCE .ROUTE ; Start 08/23/16 at 12:00 ; Stop 08/24/16 at 10:38; Status DC Epinephrine HCl 4 mg STK-MED ONCE .ROUTE ; Start 08/23/16 at 12:00; Stop at 10:38; Status DC Sodium Bicarbonate 100 meq 100 meq STK-MED ONCE .ROUTE ; Start 08/23/16 at 12:00 ; Stop 08/24/16 at 10:38; Status DC Levothyroxine Sodium 50 mcg/ Sodium Chloride 5 ml @ 100 mls/hr DAILY IVP Last administered on 09/01/16 09:28; Start 08/24/16 at 15:00 Phytonadione 10 mg/Sodium Chloride 51 ml @ 102 mls/hr 1X ONCE IV Last administered on 08/24/16 15:14; Start 08/24/16 at 14:30; Stop 08/24/16 at 14:59 ; Status DC Vasopressin/ Dextrose (Vasostrict) 102 ml @ 6 mls/hr CONT PRN IV SEE I/O RECORD Last administered on 08/26/16 05:44; Start 08/24/16 at 18:15; Stop at 18:47; Status DC Acetaminophen 650 mg 650 mg PRN Q6HRS PRN PEG MILD PAIN / TEMP Last administered on 08/24/16 20:52; Start 08/24/16 at 20:45 Levofloxacin/ Dextrose (LEVAQUIN 500mg PREMIX) 100 ml @ 100 mls/hr 1X ONCE IV Last administered on 08/25/16 08:06; Start 08/25/16 at 08:00; Stop 08/25/16 at 08:59; Status DC Insulin Aspart (Novolog) 0-9 UNITS TIDWMEALS SQ Last administered on 08/25/16 17:23; Start 08/25/16 at 08:00; Stop 08/25/16 at 19:32; Status DC Dextrose 12.5 gm PRN Q15MIN PRN IV SEE COMMENTS; Start 08/25/16 at 07:30 Insulin Aspart 10 units 10 units 1X ONCE SQ Last administered on 08/25/16 08: 08; Start 08/25/16 at 08:00; Stop 08/25/16 at 08:01; Status DC Sodium Chloride 1,000 ml @ 50 mls/hr Q20H IV Last administered on 08/31/16 07: 36; Start 08/25/16 at 11:00; Stop 08/31/16 at 18:09; Status DC Potassium Chloride/Sodium Chloride (Iv Sodium Chloride 0.45%) 1,015 ml @ 75 mls /hr 1X ONCE IV Last administered on 08/25/16 10:55; Start 08/25/16 at 11:00; Stop 08/26/16 at 00:31; Status DC Insulin Aspart 10 units 10 units 1X ONCE SQ Last administered on 08/25/16 12: 42; Start 08/25/16 at 12:45; Stop 08/25/16 at 12:46; Status DC Vancomycin HCl/ Sodium Chloride (Iv Sodium Chloride 0.9% 250ml) 250 ml @ 250 mls/hr Q18H IV Last administered on 08/26/16 06:39; Start 08/25/16 at 13:00; Stop 08/26/16 at 08:18; Status DC Insulin Aspart 0-9 UNITS Q6HRS SQ Last administered on 09/01/16 13:19; Start at 00:00 Levofloxacin/ Dextrose 100 ml @ 100 mls/hr 1X ONCE IV Last administered on 09:28; Start 08/26/16 at 09:30; Stop 08/26/16 at 10:29; Status DC Potassium Chloride/Sodium Chloride (Iv Sodium Chloride 0.45%) 1,015 ml @ 75 mls /hr 1X ONCE IV Last administered on 08/26/16 15:23; Start 08/26/16 at 11:00; Stop 08/27/16 at 00:31; Status DC Hydrocortisone Sodium Succinate 100 mg 100 mg BID IV Last administered on 08:15; Start 08/27/16 at 09:00; Stop 08/30/16 at 09:26; Status DC Amino Acids/ Electrolytes/ Dextrose 1,000 ml @ 80 mls/hr [id number] IV Last administered on 09/01/16 10:22; Start 08/27/16 at 12:30 Potassium Chloride (KCl Premix 20meq) 50 ml @ 50 mls/hr 1X ONCE IV Last administered on 08/27/16 15:29; Start 08/27/16 at 12:30; Stop 08/27/16 at 13:29; Status DC Insulin Aspart 15 units 15 units 1X ONCE SQ Last administered on 08/28/16 07: 13; Start 08/28/16 at 07:15; Stop 08/28/16 at 07:16; Status DC Propofol 100 ml @ As Directed STK-MED ONCE IV ; Start 08/29/16 at 16:23; Stop at 16:24; Status DC Propofol (Diprivan) 100 ml @ 0 mls/hr CONT PRN IV SEE I/O RECORD Last administered on 08/29/16 16:30; Start 08/29/16 at 18:00 Insulin Aspart 6 units 6 units 1X ONCE SQ Last administered on 08/30/16 08:18 ; Start 08/30/16 at 07:15; Stop 08/30/16 at 07:16; Status DC Potassium Chloride (KCl Premix 20meq) 50 ml @ 50 mls/hr Q1H IV Last administered on 08/30/16 12:00; Start 08/30/16 at 07:30; Stop 08/30/16 at 09:29; Status DC Hydrocortisone Sodium Succinate (Solu-Cortef) 50 mg BID IV Last administered on 08/31/16 09:28; Start 08/30/16 at 21:00; Stop 08/31/16 at 09:41; Status DC Insulin Aspart (Novolog) 10 units 1X ONCE SQ Last administered on 08/31/16 00: 49; Start 08/31/16 at 01:00; Stop 08/31/16 at 01:01; Status DC Hydrocortisone Sodium Succinate (Solu-Cortef) 25 mg BID IV Last administered on 09/01/16 09:27; Start 08/31/16 at 21:00; Stop 09/01/16 at 12:11; Status DC Insulin Aspart (Novolog) 10 units TIDAC SQ Last administered on 08/31/16 16:36 ; Start 08/31/16 at 11:30; Stop 09/01/16 at 08:59; Status DC Insulin Detemir 15 units 15 units DAILY10 SQ Last administered on 08/31/16 11: 59; Start 08/31/16 at 11:30; Stop 09/01/16 at 08:59; Status DC Potassium Chloride (KCl Premix 20meq) 50 ml @ 50 mls/hr Q1H IV Last administered on 08/31/16 16:32; Start 08/31/16 at 12:00; Stop 08/31/16 at 15:59; Status DC Potassium Chloride (KCl Oral Soln) 20 meq 1X ONCE PEG ; Start 08/31/16 at 15:00 ; Stop 08/31/16 at 15:00; Status DC Potassium Chloride (KCl Oral Soln) 20 meq DAILY PEG Last administered on 09:27; Start 09/01/16 at 09:00 Potassium Chloride (KCl Oral Soln) 40 meq 1X ONCE PEG Last administered on 08/31 16:32; Start 08/31/16 at 14:30; Stop 08/31/16 at 14:31; Status DC Insulin Aspart (Novolog) 10 units Q6HRS SQ Last administered on 09/01/16 13:18 ; Start 09/01/16 at 12:00 Insulin Detemir (Levemir) 20 units QHS SQ ; Start 09/01/16 at 21:00 Cefpodoxime Proxetil (Vantin) 100 mg BID PO Last administered on 09/01/16 09:33 ; Start 09/01/16 at 10:00 Metoclopramide HCl (Reglan) 5 mg QIDACHS IV Last administered on 09/01/16 13:09 ; Start 09/01/16 at 11:30 Active Scripts Active Reported Milk Of Magnesia (Magnesium Hydroxide) 2,400 Mg/10 Ml Oral.susp 2,400 Mg PO DAILY PRN Dulcolax (Bisacodyl) 10 Mg Supp.rect 10 Mg RC PRN DAILY PRN Aspirin 325 Mg Tablet 1 Tab PEG DAILY Tylenol (Acetaminophen) 325 Mg Tablet 2 Tab PO PRN Q6HRS PRN Vitamin B Complex 1 Each Tablet 1 Tab PO DAILY Vitamin D3 (Cholecalciferol (Vitamin D3)) 1,000 Unit Tablet 2,000 Unit PO DAILY Keppra (Levetiracetam) 500 Mg Tablet 500 Mg PO BID Vitals/I & O Vital Sign - Last 24 Hours 08/31/16 08/31/16 08/31/16 08/31/16 16:00 17:14 19:00 20:00 Temp 99.2 98.9 99.2 98.9 Pulse 99 107 Resp 15 16 B/P 113/68 108/77 Pulse Ox 99 100 96 O2 Delivery Nasal Cannula Nasal Cannula Nasal Cannula Nasal Cannula O2 Flow Rate 2.0 2.0 2.0 2.0 08/31/16 08/31/16 09/01/16 09/01/16 20:17 23:00 03:00 07:00 Temp 98.5 98.4 97.9 98.5 98.4 97.9 Pulse 98 98 96 Resp 16 18 22 B/P 128/78 121/78 119/73 Pulse Ox 100 98 98 95 O2 Delivery Nasal Cannula Nasal Cannula Nasal Cannula Nasal Cannula O2 Flow Rate 2.0 2.0 2.0 2.0 09/01/16 09/01/16 09/01/16 09/01/16 08:00 08:14 11:00 12:13 Temp 98.8 98.8 Pulse 113 Resp 18 B/P 137/84 Pulse Ox 91 O2 Delivery Nasal Cannula Nasal Cannula Nasal Cannula Nasal Cannula O2 Flow Rate 2.0 2.0 2.0 2.0 Intake and Output 08/31/16 08/31/16 09/01/16 15:00 23:00 07:00 Intake Total 0 ml 95 ml 1155 ml Output Total 425 ml 375 ml 1600 ml Balance -425 ml -280 ml -445 ml SOLANGE ESPOSITO MD Sep 01, 2016 14:20
[2016-09-01 16:00] VITALS: BP 106/65
[2016-09-01] MEDS: ACETAMINOPHEN 650 MG/20.3 ML SOLUTION. PEG PRN (16:01)
--- NOTE | 2016-09-01 16:26 | RAD ---
AP portable chest radiograph 09/01/2016 Clinical History: Respiratory failure. An AP portable erect digital radiograph of the chest was obtained. Comparison study is dated 08/29/2016. The ET tube has been removed. A left arm PICC is unchanged in position. The cardiac silhouette is mildly enlarged. The thoracic aorta is mildly tortuous. Areas of atelectasis and/or infiltrate are seen involving both lower lobes essentially unchanged. No pneumothorax or pleural effusion is noted. The osseous structures are unchanged. Impression: 1. The ET tube has been removed. 2. Areas of atelectasis and/or infiltrate are seen involving both lower lobes essentially unchanged.
[2016-09-01 19:46] VITALS: BP 126/86
[2016-09-01] MEDS ORDERED: INSULIN DETEMIR 300 UNITS/3 ML INSULN.PEN. SQ SCH (21:00)
[2016-09-01 23:40] VITALS: BP 115/73
[2016-09-02] MEDS: AA 4.25%/CALCIUM/LYTES/D5W 1,000 ML IV SCH (00:11)
[2016-09-02] MEDS: INSULIN ASPART 300 UNITS/3 ML INSULN.PEN SQ SCH ×6 (00:22→17:17)
[2016-09-02 03:21] VITALS: BP 118/76
[2016-09-02 05:20] LABS: BASO % 0 % (0-3); EOS % 2 % (0-3); HEMATOCRIT 28.6 % (39.0-53.0); HEMOGLOBIN 9.5 g/dL (13.0-17.5); LYMPH # 1.4 x10^3/uL (1.0-4.8); LYMPH % 8 % (24-48); MEAN CORPUSCULAR HEMOGLOBIN 35 pg (25-35); MEAN CORPUSCULAR HGB CONC 33 g/dL (31-37); MEAN CORPUSCULAR VOLUME 105 fL (79-100); MONO % 3 % (0-9); NEUT % 88 % (31-73); PLATELET COUNT 120 x10^3/uL (140-400); RED BLOOD COUNT 2.73 x10^6/uL (4.30-5.70); RED CELL DISTRIBUTION WIDTH 15.1 % (11.5-14.5); WHITE BLOOD COUNT 18.2 x10^3/uL (4.0-11.0)
[2016-09-02 05:40] LABS: CALCIUM 7.8 mg/dL (8.5-10.1); CREATININE 0.8 mg/dL (0.7-1.3); GFR 121.4
[2016-09-02 07:00] VITALS: BP_SYST 107; BP_SYST 110; BP_DIAS 60; BP_DIAS 73
[2016-09-02] MEDS: IPRATRPIUM/ALBUTEROL 0.5/2.5MG 3 ML NEBU. NEB SCH ×4 (08:06→19:56)
[2016-09-02] MEDS ORDERED: FUROSEMIDE 40 MG/4 ML VIAL IVP ONE (08:15)
[2016-09-02] MEDS: METOCLOPRAMIDE HCL 10 MG/2 ML VIAL. IV SCH ×2 (08:34→12:41)
[2016-09-02] MEDS: PANTOPRAZOLE IV PUSH 40 MG VIAL. IVP SCH (08:36)
[2016-09-02] MEDS: ASPIRIN 325 MG TABLET PEG SCH (08:38)
[2016-09-02] MEDS: VITAMIN B COMPLEX TABLET. PO SCH (08:39)
[2016-09-02] MEDS: POTASSIUM CHLORIDE 20 MEQ/15 ML ORAL LIQUID. PEG SCH (08:39)
[2016-09-02] MEDS: ACETAMINOPHEN 650 MG/20.3 ML SOLUTION. PEG PRN (08:40)
[2016-09-02] MEDS: CHOLECALCIFEROL (VITAMIN D3) 1,000 UNIT TABLET PO SCH (08:40)
[2016-09-02] MEDS: CEFPODOXIME PROXETIL 100 MG TABLET PO SCH ×2 (08:40→21:47)
[2016-09-02] MEDS: LEVETIRACETAM 500 MG in IV NORMAL SALINE 100ML 100 ML IV SCH (08:49)
[2016-09-02] MEDS: LEVOTHYROXINE SODIUM 50 MCG in IV NORMAL SALINE 50ML 5 ML IVP SCH (08:50)
--- NOTE | 2016-09-02 09:04 | PDOC ---
PULMONARY PROGRESS NOTES Subjective extubated 08/30 no soa new fever Vitals Vital Signs Date Time Temp Pulse Resp B/P Pulse Ox O2 Delivery O2 Flow Rate FiO2 09/02/16 08:07 94 Nasal Cannula 2.0 09/02/16 03:21 100.6 114 24 118/76 100.6 General: No acute distress Lungs: Clear Cardiovascular: S1, S2 Abdomen: Soft Extremities: Other (swelling left upper, lower extremity edema) Skin: Warm Labs Laboratory Tests Test 08/31/16 10:00 08/31/16 16:34 08/31/16 18:30 08/31/16 23:35 White Blood Count 18.1x10^3/uL (4.0-11.0) Red Blood Count 2.33x10^6/uL (4.30-5.70) Hemoglobin 8.0g/dL (13.0-17.5) Hematocrit 23.8% (39.0-53.0) Mean Corpuscular Volume 102fL (79-100) Mean Corpuscular Hemoglobin 34pg (25-35) Mean Corpuscular Hemoglobin Concent 33g/dL (31-37) Red Cell Distribution Width 14.3% (11.5-14.5) Platelet Count 85x10^3/uL (140-400) Neutrophils (%) (Auto) 84% (31-73) Lymphocytes (%) (Auto) 11% (24-48) Monocytes (%) (Auto) 5% (0-9) Neutrophils # (Auto) 15.1x10^3uL (1.8-7.7) Lymphocytes # (Auto) 1.9x10^3/uL (1.0-4.8) Monocytes # (Auto) 1.0x10^3/uL (0.0-1.1) Segmented Neutrophils % 73% (35-66) Band Neutrophils % 12% (0-9) Lymphocytes % 9% (24-48) Monocytes % 4% (0-10) Metamyelocytes % 1% (0-0) Myelocytes % 1% (0-0) Platelet Estimate Decreased (ADEQUATE) Polychromasia Slight Anisocytosis Slight Sodium Level 150mmol/L (136-145) 150mmol/L (136-145) Potassium Level 2.4mmol/L (3.5-5.1) 4.2mmol/L (3.5-5.1) Chloride Level 110mmol/L (98-107) 113mmol/L (98-107) Carbon Dioxide Level 33mmol/L (21-32) 30mmol/L (21-32) Anion Gap 7 (6-14) 7 (6-14) Blood Urea Nitrogen 25mg/dL (8-26) 23mg/dL (8-26) Creatinine 1.0mg/dL (0.7-1.3) 1.0mg/dL (0.7-1.3) Estimated GFR (Cockcroft-Gault) 93.9 93.9 Glucose Level 289mg/dL (70-99) 240mg/dL (70-99) Calcium Level 7.5mg/dL (8.5-10.1) 7.5mg/dL (8.5-10.1) Magnesium Level 1.9mg/dL (1.8-2.4) Glucose (Fingerstick) 221mg/dL (70-99) 274mg/dL (70-99) Test 09/01/16 03:25 09/01/16 05:19 09/01/16 07:38 09/01/16 11:56 White Blood Count 14.4x10^3/uL (4.0-11.0) Red Blood Count 2.23x10^6/uL (4.30-5.70) Hemoglobin 7.8g/dL (13.0-17.5) Hematocrit 23.0% (39.0-53.0) Mean Corpuscular Volume 103fL (79-100) Mean Corpuscular Hemoglobin 35pg (25-35) Mean Corpuscular Hemoglobin Concent 34g/dL (31-37) Red Cell Distribution Width 14.3% (11.5-14.5) Platelet Count 96x10^3/uL (140-400) Neutrophils (%) (Auto) 85% (31-73) Lymphocytes (%) (Auto) 9% (24-48) Monocytes (%) (Auto) 6% (0-9) Eosinophils (%) (Auto) 0% (0-3) Basophils (%) (Auto) 0% (0-3) Neutrophils # (Auto) 12.3x10^3uL (1.8-7.7) Lymphocytes # (Auto) 1.3x10^3/uL (1.0-4.8) Monocytes # (Auto) 0.8x10^3/uL (0.0-1.1) Eosinophils # (Auto) 0.0x10^3/uL (0.0-0.7) Basophils # (Auto) 0.0x10^3/uL (0.0-0.2) Sodium Level 148mmol/L (136-145) Potassium Level 3.6mmol/L (3.5-5.1) Chloride Level 110mmol/L (98-107) Carbon Dioxide Level 33mmol/L (21-32) Anion Gap 5 (6-14) Blood Urea Nitrogen 22mg/dL (8-26) Creatinine 1.0mg/dL (0.7-1.3) Estimated GFR (Cockcroft-Gault) 93.9 BUN/Creatinine Ratio 22 (6-20) Glucose Level 342mg/dL (70-99) Calcium Level 7.4mg/dL (8.5-10.1) Total Bilirubin 0.5mg/dL (0.2-1.0) Aspartate Amino Transf (AST/SGOT) 28U/L (15-37) Alanine Aminotransferase (ALT/SGPT) 24U/L (16-63) Alkaline Phosphatase 59U/L (46-116) Total Protein 5.3g/dL (6.4-8.2) Albumin 1.4g/dL (3.4-5.0) Albumin/Globulin Ratio 0.4 (1.0-1.7) Glucose (Fingerstick) 356mg/dL (70-99) 321mg/dL (70-99) 332mg/dL (70-99) Test 09/01/16 16:55 09/01/16 20:50 09/02/16 00:17 09/02/16 04:12 Glucose (Fingerstick) 303mg/dL (70-99) 222mg/dL (70-99) 180mg/dL (70-99) White Blood Count 18.2x10^3/uL (4.0-11.0) Red Blood Count 2.73x10^6/uL (4.30-5.70) Hemoglobin 9.5g/dL (13.0-17.5) Hematocrit 28.6% (39.0-53.0) Mean Corpuscular Volume 105fL (79-100) Mean Corpuscular Hemoglobin 35pg (25-35) Mean Corpuscular Hemoglobin Concent 33g/dL (31-37) Red Cell Distribution Width 15.1% (11.5-14.5) Platelet Count 120x10^3/uL (140-400) Neutrophils (%) (Auto) 88% (31-73) Lymphocytes (%) (Auto) 8% (24-48) Monocytes (%) (Auto) 3% (0-9) Eosinophils (%) (Auto) 2% (0-3) Basophils (%) (Auto) 0% (0-3) Neutrophils # (Auto) 16.0x10^3uL (1.8-7.7) Lymphocytes # (Auto) 1.4x10^3/uL (1.0-4.8) Monocytes # (Auto) 0.5x10^3/uL (0.0-1.1) Eosinophils # (Auto) 0.3x10^3/uL (0.0-0.7) Basophils # (Auto) 0.0x10^3/uL (0.0-0.2) Sodium Level 147mmol/L (136-145) Potassium Level 3.0mmol/L (3.5-5.1) Chloride Level 108mmol/L (98-107) Carbon Dioxide Level 35mmol/L (21-32) Anion Gap 4 (6-14) Blood Urea Nitrogen 20mg/dL (8-26) Creatinine 0.8mg/dL (0.7-1.3) Estimated GFR (Cockcroft-Gault) 121.4 Glucose Level 60mg/dL (70-99) Calcium Level 7.8mg/dL (8.5-10.1) Test 09/02/16 05:57 09/02/16 06:37 Glucose (Fingerstick) 56mg/dL (70-99) 74mg/dL (70-99) Laboratory Tests Test 09/01/16 11:56 09/01/16 16:55 09/01/16 20:50 09/02/16 00:17 Glucose (Fingerstick) 332mg/dL (70-99) 303mg/dL (70-99) 222mg/dL (70-99) 180mg/dL (70-99) Test 09/02/16 04:12 09/02/16 05:57 09/02/16 06:37 White Blood Count 18.2x10^3/uL (4.0-11.0) Red Blood Count 2.73x10^6/uL (4.30-5.70) Hemoglobin 9.5g/dL (13.0-17.5) Hematocrit 28.6% (39.0-53.0) Mean Corpuscular Volume 105fL (79-100) Mean Corpuscular Hemoglobin 35pg (25-35) Mean Corpuscular Hemoglobin Concent 33g/dL (31-37) Red Cell Distribution Width 15.1% (11.5-14.5) Platelet Count 120x10^3/uL (140-400) Neutrophils (%) (Auto) 88% (31-73) Lymphocytes (%) (Auto) 8% (24-48) Monocytes (%) (Auto) 3% (0-9) Eosinophils (%) (Auto) 2% (0-3) Basophils (%) (Auto) 0% (0-3) Neutrophils # (Auto) 16.0x10^3uL (1.8-7.7) Lymphocytes # (Auto) 1.4x10^3/uL (1.0-4.8) Monocytes # (Auto) 0.5x10^3/uL (0.0-1.1) Eosinophils # (Auto) 0.3x10^3/uL (0.0-0.7) Basophils # (Auto) 0.0x10^3/uL (0.0-0.2) Sodium Level 147mmol/L (136-145) Potassium Level 3.0mmol/L (3.5-5.1) Chloride Level 108mmol/L (98-107) Carbon Dioxide Level 35mmol/L (21-32) Anion Gap 4 (6-14) Blood Urea Nitrogen 20mg/dL (8-26) Creatinine 0.8mg/dL (0.7-1.3) Estimated GFR (Cockcroft-Gault) 121.4 Glucose Level 60mg/dL (70-99) Calcium Level 7.8mg/dL (8.5-10.1) Glucose (Fingerstick) 56mg/dL (70-99) 74mg/dL (70-99) Medications Active Scripts Medications Dose Route/Sig Days Date Category Milk Of Magnesia (Magnesium Hydroxide) 2,400 Mg/10 Ml Oral.susp 2,400 Mg PO DAILY PRN 08/21/15 Reported Dulcolax (Bisacodyl) 10 Mg Supp.rect 10 Mg RC PRN DAILY PRN 08/21/15 Reported Aspirin 325 Mg Tablet 1 Tab PEG DAILY 08/02/15 Reported Tylenol (Acetaminophen) 325 Mg Tablet 2 Tab PO PRN Q6HRS PRN 08/02/15 Reported Vitamin B Complex 1 Each Tablet 1 Tab PO DAILY 07/25/15 Reported Vitamin D3 (Cholecalciferol (Vitamin D3)) 1,000 Unit Tablet 2,000 Unit PO DAILY 07/25/15 Reported Keppra (Levetiracetam) 500 Mg Tablet 500 Mg PO BID 07/25/15 Reported Impression . 1. Acute hypoxic respiratory failure secondary septic shock, resolved, extubated 08/30 2. Septic shock cultures so far negative, resolved 3. Abnormal chest x-ray with initial x-ray showing infiltrate 4. Acute severe metabolic acidosis with severe lactic acidosis secondary to sepsis/septic shock. MAHAD contributing to metabolic acidosis, improved 5. Hematuria 6. Urinary tract infection. 7. Coagulopathy, most likely related to early disseminated intravascular coagulation. 8. Underlying Down's syndrome 9. Dysphagia S/P PEG 10. New fevere, ID following, consider r/o left upper DVT Plan . nasal canula replace K prn TF OFF steroids d/w RN/ Dr Nina pulmonary status stable follow ID recommendations regarding new fever dopplers left upper extremity SADA CORTEZ MD Sep 02, 2016 09:04
[2016-09-02 11:21] VITALS: BP 102/52
[2016-09-02] MEDS ORDERED: INSULIN ASPART 300 UNITS/3 ML INSULN.PEN SQ SCH (12:00)
--- NOTE | 2016-09-02 12:11 | PDOC ---
PROGRESS NOTES Chief Complaint Chief Complaint Resp failure - was intubated, breathing werll 1. Severe Sepsis, pneumonia 2. PNA, bed bound, , aspiration 3. Bed bound, non verbal, hx down's, and hx CVA 4. Dysphagia, indwelling PEG 5 MAHAD, vasomotor, now recovery phase with marked (critical) hypokalemia, 6. Gap metabolic acidosis, recent vomiting, severe sepsis 7. hypothyroidism 8. down syndrome 9. possible gastroparesis plan: 1. fu with pulm, id, GI 2. slowly PEG feeding with 9, KUB today ruled out obstruction 3. change iv abx to po as per ID 4. on NC 2 L 4. dc aspart, cont levemir, decrease to 10u qhs, dc PPN, lasix 40mg ivx1 check bcx, on po abx now, US to rule out DVT dc steroid 5. hope to dc in 1-2 ds back home with HH talked to id and pulm History of Present Illness History of Present Illness DW RN code status changed to DNR on on this admit NON VERbal PEG feeding, chronic, 35cc/h now, goal 50cc/h hyperglycemia gets low wo steroid fever again on 09/02, high wbc, tachycardia Vitals Vitals Vital Signs Date Time Temp Pulse Resp B/P Pulse Ox O2 Delivery O2 Flow Rate FiO2 09/02/16 11:21 100.0 113 15 102/52 100 Nasal Cannula 2.0 100.0 Physical Exam Physical Exam no follow commands or talk as baseline General: Alert, No acute distress, Other ( awake, ) Heart: Regular rate, No murmurs Lungs: Clear Abdomen: Normal bowel sounds, Soft, No tenderness Extremities: No clubbing Skin: No breakdown, No significant lesion Labs LABS Laboratory Tests Test 09/01/16 16:55 09/01/16 20:50 09/02/16 00:17 09/02/16 04:12 Glucose (Fingerstick) 303mg/dL (70-99) 222mg/dL (70-99) 180mg/dL (70-99) White Blood Count 18.2x10^3/uL (4.0-11.0) Red Blood Count 2.73x10^6/uL (4.30-5.70) Hemoglobin 9.5g/dL (13.0-17.5) Hematocrit 28.6% (39.0-53.0) Mean Corpuscular Volume 105fL (79-100) Mean Corpuscular Hemoglobin 35pg (25-35) Mean Corpuscular Hemoglobin Concent 33g/dL (31-37) Red Cell Distribution Width 15.1% (11.5-14.5) Platelet Count 120x10^3/uL (140-400) Neutrophils (%) (Auto) 88% (31-73) Lymphocytes (%) (Auto) 8% (24-48) Monocytes (%) (Auto) 3% (0-9) Eosinophils (%) (Auto) 2% (0-3) Basophils (%) (Auto) 0% (0-3) Neutrophils # (Auto) 16.0x10^3uL (1.8-7.7) Lymphocytes # (Auto) 1.4x10^3/uL (1.0-4.8) Monocytes # (Auto) 0.5x10^3/uL (0.0-1.1) Eosinophils # (Auto) 0.3x10^3/uL (0.0-0.7) Basophils # (Auto) 0.0x10^3/uL (0.0-0.2) Sodium Level 147mmol/L (136-145) Potassium Level 3.0mmol/L (3.5-5.1) Chloride Level 108mmol/L (98-107) Carbon Dioxide Level 35mmol/L (21-32) Anion Gap 4 (6-14) Blood Urea Nitrogen 20mg/dL (8-26) Creatinine 0.8mg/dL (0.7-1.3) Estimated GFR (Cockcroft-Gault) 121.4 Glucose Level 60mg/dL (70-99) Calcium Level 7.8mg/dL (8.5-10.1) Test 09/02/16 05:57 09/02/16 06:37 09/02/16 11:44 Glucose (Fingerstick) 56mg/dL (70-99) 74mg/dL (70-99) 78mg/dL (70-99) Review of Systems Review of Systems no chills, sob or chest pain Assessment and Plan Assessmemt and Plan Problems Medical Problems: (1) HAP (hospital-acquired pneumonia) Status: Acute (2) Pneumonia Status: Acute Problems: Comment Review of Relevant I have reviewed the following items kassie (where applicable) has been applied. Labs Laboratory Tests Test 08/31/16 16:34 08/31/16 18:30 08/31/16 23:35 09/01/16 03:25 Glucose (Fingerstick) 221mg/dL (70-99) 274mg/dL (70-99) Sodium Level 150mmol/L (136-145) 148mmol/L (136-145) Potassium Level 4.2mmol/L (3.5-5.1) 3.6mmol/L (3.5-5.1) Chloride Level 113mmol/L (98-107) 110mmol/L (98-107) Carbon Dioxide Level 30mmol/L (21-32) 33mmol/L (21-32) Anion Gap 7 (6-14) 5 (6-14) Blood Urea Nitrogen 23mg/dL (8-26) 22mg/dL (8-26) Creatinine 1.0mg/dL (0.7-1.3) 1.0mg/dL (0.7-1.3) Estimated GFR (Cockcroft-Gault) 93.9 93.9 Glucose Level 240mg/dL (70-99) 342mg/dL (70-99) Calcium Level 7.5mg/dL (8.5-10.1) 7.4mg/dL (8.5-10.1) White Blood Count 14.4x10^3/uL (4.0-11.0) Red Blood Count 2.23x10^6/uL (4.30-5.70) Hemoglobin 7.8g/dL (13.0-17.5) Hematocrit 23.0% (39.0-53.0) Mean Corpuscular Volume 103fL (79-100) Mean Corpuscular Hemoglobin 35pg (25-35) Mean Corpuscular Hemoglobin Concent 34g/dL (31-37) Red Cell Distribution Width 14.3% (11.5-14.5) Platelet Count 96x10^3/uL (140-400) Neutrophils (%) (Auto) 85% (31-73) Lymphocytes (%) (Auto) 9% (24-48) Monocytes (%) (Auto) 6% (0-9) Eosinophils (%) (Auto) 0% (0-3) Basophils (%) (Auto) 0% (0-3) Neutrophils # (Auto) 12.3x10^3uL (1.8-7.7) Lymphocytes # (Auto) 1.3x10^3/uL (1.0-4.8) Monocytes # (Auto) 0.8x10^3/uL (0.0-1.1) Eosinophils # (Auto) 0.0x10^3/uL (0.0-0.7) Basophils # (Auto) 0.0x10^3/uL (0.0-0.2) BUN/Creatinine Ratio 22 (6-20) Total Bilirubin 0.5mg/dL (0.2-1.0) Aspartate Amino Transf (AST/SGOT) 28U/L (15-37) Alanine Aminotransferase (ALT/SGPT) 24U/L (16-63) Alkaline Phosphatase 59U/L (46-116) Total Protein 5.3g/dL (6.4-8.2) Albumin 1.4g/dL (3.4-5.0) Albumin/Globulin Ratio 0.4 (1.0-1.7) Test 09/01/16 05:19 09/01/16 07:38 09/01/16 11:56 09/01/16 16:55 Glucose (Fingerstick) 356mg/dL (70-99) 321mg/dL (70-99) 332mg/dL (70-99) 303mg/dL (70-99) Test 09/01/16 20:50 09/02/16 00:17 09/02/16 04:12 09/02/16 05:57 Glucose (Fingerstick) 222mg/dL (70-99) 180mg/dL (70-99) 56mg/dL (70-99) White Blood Count 18.2x10^3/uL (4.0-11.0) Red Blood Count 2.73x10^6/uL (4.30-5.70) Hemoglobin 9.5g/dL (13.0-17.5) Hematocrit 28.6% (39.0-53.0) Mean Corpuscular Volume 105fL (79-100) Mean Corpuscular Hemoglobin 35pg (25-35) Mean Corpuscular Hemoglobin Concent 33g/dL (31-37) Red Cell Distribution Width 15.1% (11.5-14.5) Platelet Count 120x10^3/uL (140-400) Neutrophils (%) (Auto) 88% (31-73) Lymphocytes (%) (Auto) 8% (24-48) Monocytes (%) (Auto) 3% (0-9) Eosinophils (%) (Auto) 2% (0-3) Basophils (%) (Auto) 0% (0-3) Neutrophils # (Auto) 16.0x10^3uL (1.8-7.7) Lymphocytes # (Auto) 1.4x10^3/uL (1.0-4.8) Monocytes # (Auto) 0.5x10^3/uL (0.0-1.1) Eosinophils # (Auto) 0.3x10^3/uL (0.0-0.7) Basophils # (Auto) 0.0x10^3/uL (0.0-0.2) Sodium Level 147mmol/L (136-145) Potassium Level 3.0mmol/L (3.5-5.1) Chloride Level 108mmol/L (98-107) Carbon Dioxide Level 35mmol/L (21-32) Anion Gap 4 (6-14) Blood Urea Nitrogen 20mg/dL (8-26) Creatinine 0.8mg/dL (0.7-1.3) Estimated GFR (Cockcroft-Gault) 121.4 Glucose Level 60mg/dL (70-99) Calcium Level 7.8mg/dL (8.5-10.1) Test 09/02/16 06:37 09/02/16 11:44 Glucose (Fingerstick) 74mg/dL (70-99) 78mg/dL (70-99) Laboratory Tests Test 09/01/16 16:55 09/01/16 20:50 09/02/16 00:17 09/02/16 04:12 Glucose (Fingerstick) 303mg/dL (70-99) 222mg/dL (70-99) 180mg/dL (70-99) White Blood Count 18.2x10^3/uL (4.0-11.0) Red Blood Count 2.73x10^6/uL (4.30-5.70) Hemoglobin 9.5g/dL (13.0-17.5) Hematocrit 28.6% (39.0-53.0) Mean Corpuscular Volume 105fL (79-100) Mean Corpuscular Hemoglobin 35pg (25-35) Mean Corpuscular Hemoglobin Concent 33g/dL (31-37) Red Cell Distribution Width 15.1% (11.5-14.5) Platelet Count 120x10^3/uL (140-400) Neutrophils (%) (Auto) 88% (31-73) Lymphocytes (%) (Auto) 8% (24-48) Monocytes (%) (Auto) 3% (0-9) Eosinophils (%) (Auto) 2% (0-3) Basophils (%) (Auto) 0% (0-3) Neutrophils # (Auto) 16.0x10^3uL (1.8-7.7) Lymphocytes # (Auto) 1.4x10^3/uL (1.0-4.8) Monocytes # (Auto) 0.5x10^3/uL (0.0-1.1) Eosinophils # (Auto) 0.3x10^3/uL (0.0-0.7) Basophils # (Auto) 0.0x10^3/uL (0.0-0.2) Sodium Level 147mmol/L (136-145) Potassium Level 3.0mmol/L (3.5-5.1) Chloride Level 108mmol/L (98-107) Carbon Dioxide Level 35mmol/L (21-32) Anion Gap 4 (6-14) Blood Urea Nitrogen 20mg/dL (8-26) Creatinine 0.8mg/dL (0.7-1.3) Estimated GFR (Cockcroft-Gault) 121.4 Glucose Level 60mg/dL (70-99) Calcium Level 7.8mg/dL (8.5-10.1) Test 09/02/16 05:57 09/02/16 06:37 09/02/16 11:44 Glucose (Fingerstick) 56mg/dL (70-99) 74mg/dL (70-99) 78mg/dL (70-99) Microbiology 08/23/16 Blood Culture - Final, Complete NO GROWTH AFTER 5 DAYS 08/23/16 Urine Culture - Final, Complete 08/23/16 Urine Culture Result 1 (SHANON) - Final, Complete 08/23/16 Antimicrobic Susceptibility - Final, Complete Medications Current Medications Sodium Chloride 1,000 ml @ 1,000 mls/hr 1X ONCE IV Last administered on 11:16; Start 08/23/16 at 11:15; Stop 08/23/16 at 12:14; Status DC Sodium Chloride (Iv Sodium Chloride 0.9% 1000ml Bag) 1,000 ml @ 1,000 mls/hr 1X ONCE IV Last administered on 08/23/16 11:30; Start 08/23/16 at 11:30; Stop 08/23/16 at 12:29; Status DC Vancomycin HCl (Vanco Per Pharmacy) 1 each PRN DAILY PRN MC SEE COMMENTS Last administered on 08/25/16 13:04; Start 08/23/16 at 11:30; Stop 08/26/16 at 08:18; Status DC Piperacillin Sod/ Tazobactam Sod 1 each 1 each PRN DAILY PRN MC SEE COMMENTS; Start 08/23/16 at 11:30; Stop 08/25/16 at 09:54; Status DC Levofloxacin/ Dextrose 100 ml @ 100 mls/hr 1X ONCE IV Last administered on 12:58; Start 08/23/16 at 11:30; Stop 08/23/16 at 12:29; Status DC Piperacillin Sod/ Tazobactam Sod 4.5 gm/Sodium Chloride 100 ml @ 200 mls/hr 1X ONCE IV Last administered on 08/23/16 12:00; Start 08/23/16 at 12:00; Stop 08/23/16 at 12:29; Status DC Vancomycin HCl 1.5 gm/Sodium Chloride 500 ml @ 250 mls/hr 1X ONCE IV Last administered on 08/23/16 12:30; Start 08/23/16 at 12:30; Stop 08/23/16 at 14:29 ; Status DC Sodium Chloride 1,000 ml @ 1,000 mls/hr 1X ONCE IV Last administered on 12:46; Start 08/23/16 at 12:30; Stop 08/23/16 at 13:29; Status DC Piperacillin Sod/ Tazobactam Sod 3.375 gm/Sodium Chloride 50 ml @ 100 mls/hr Q6HRS IV Last administered on 09/01/16 05:29; Start 08/23/16 at 18:00; Stop 09/01/16 at 09:08; Status DC Vancomycin HCl/ Sodium Chloride (Iv Sodium Chloride 0.9% 250ml) 250 ml @ 250 mls/hr Q24H IV ; Start 08/24/16 at 13:00; Status Cancel Vancomycin HCl 1 each 1X ONCE MC ; Start 08/25/16 at 12:30; Stop 08/25/16 at 12: 31; Status DC Labetalol HCl (Normodyne) 10 mg PRN Q2HR PRN IVP HYPERTENSION, SEE COMMENTS; Start 08/23/16 at 15:45 Aspirin (Luis Armando Aspirin) 325 mg DAILY PEG Last administered on 09/02/16 08:38; Start 08/24/16 at 09:00 Bisacodyl (Dulcolax Supp) 10 mg PRN DAILY PRN RC CONSTIPATION Last administered on 08/29/16 15:48; Start 08/23/16 at 15:45 Vitamin D (Vitamin D3) 2,000 unit DAILY PO Last administered on 09/02/16 08:40 ; Start 08/24/16 at 09:00 Levetiracetam (Keppra) 500 mg BID PO ; Start 08/23/16 at 21:00; Stop 08/23/16 at 21:00; Status DC Vitamin B Complex (Hector B) 1 tab DAILY PO Last administered on 09/02/16 08:39; Start 08/24/16 at 09:00 Magnesium Hydroxide (Milk Of Magnesia) 2,400 mg PRN DAILY PRN PO CONSTIPATION; Start 08/23/16 at 15:45 Acetaminophen 500 mg 500 mg PRN Q6HRS PRN PO MILD PAIN / TEMP; Start 08/23/16 at 15:45 Levetiracetam/ Sodium Chloride (Keppra/Iv Sodium Chloride 0.9% 100ml) 105 ml @ 400 mls/hr Q12HR IV Last administered on 09/02/16 08:49; Start 08/23/16 at 21: 00 Pantoprazole Sodium (Protonix Vial) 40 mg DAILYAC IVP Last administered on 08:36; Start 08/24/16 at 07:30 Heparin Sodium (Porcine) 5000 unit 5,000 unit Q8HRS SQ ; Start 08/23/16 at 22:00 ; Stop 08/23/16 at 22:00; Status DC Sodium Bicarbonate/ Dextrose 1,150 ml @ 150 mls/hr Q7H40M IV Last administered on 08/25/16 08:05; Start 08/23/16 at 16:30; Stop 08/25/16 at 10:35; Status DC Sodium Bicarbonate 50 meq 1X ONCE IV Last administered on 08/23/16 16:24; Start 08/23/16 at 16:15; Stop 08/23/16 at 16:17; Status DC Albuterol/ Ipratropium 3 ml 3 ml RTQID NEB Last administered on 09/02/16 08:06 ; Start 08/23/16 at 20:00 Vancomycin HCl 750 mg/Sodium Chloride 250 ml @ 250 mls/hr Q24H IV Last administered on 08/24/16 12:15; Start 08/24/16 at 13:00; Stop 08/25/16 at 12:55 ; Status DC Norepinephrine Bitartrate 8 mg/ Sodium Chloride 258 ml @ 0 mls/hr CONT PRN IV SEE I/O RECORD Last administered on 08/25/16 00:28; Start 08/23/16 at 18:15; Stop 09/01/16 at 09:01; Status DC Sodium Chloride (Iv Sodium Chloride 0.9% 1000ml Bag) 1,000 ml @ 500 mls/hr Q2H IV Last administered on 08/23/16 17:00; Start 08/23/16 at 18:30; Stop at 20:29; Status DC Hydrocortisone Sodium Succinate (Solu-Cortef) 100 mg Q8HRS IV Last administered on 08/26/16 14:54; Start 08/23/16 at 22:30; Stop 08/26/16 at 16:49; Status DC Succinylcholine Chloride (Anectine) 200 mg STK-MED ONCE .ROUTE ; Start 08/24/16 at 04:15; Stop 08/24/16 at 04:16; Status DC Etomidate 20 mg 20 mg STK-MED ONCE IV ; Start 08/24/16 at 04:15; Stop 08/24/16 at 04:16; Status DC Fentanyl Citrate (Fentanyl 600 Mcg/30 ml [employer]) 30 ml @ 0 mls/hr CONT PRN IV PROTOCOL Last administered on 08/30/16 04:54; Start 08/24/16 at 04:45 Fentanyl Citrate (Fentanyl 2ml Vial) 25 mcg PRN Q1HR PRN IV COMM Last administered on 08/29/16 07:44; Start 08/24/16 at 04:45; Stop 08/30/16 at 16:51; Status DC Fentanyl Citrate (Fentanyl 2ml Vial) 50 mcg PRN Q1HR PRN IV COMM; Start at 04:45; Status Cancel Chlorhexidine Gluconate 15 ml 15 ml BID MM Last administered on 08/30/16 08:15 ; Start 08/24/16 at 09:00; Stop 08/30/16 at 22:16; Status DC Midazolam HCl 100 ml @ 0 mls/hr CONT PRN IV PER PROTOCOL Last administered on 10:50; Start 08/24/16 at 04:45; Stop 09/01/16 at 09:02; Status DC Midazolam HCl 100 ml @ As Directed STK-MED ONCE IV ; Start 08/24/16 at 04:52; Stop 08/24/16 at 04:53; Status DC Sodium Chloride 1,000 ml @ 150 mls/hr Q6H40M IV Last administered on 06:13; Start 08/24/16 at 05:45; Stop 08/24/16 at 09:59; Status DC Vasopressin 40 unit/Dextrose 102 ml @ 6 mls/hr 1X ONCE IV Last administered on 08/24/16 06:12; Start 08/24/16 at 06:00; Stop 08/24/16 at 20:00; Status DC Phenylephrine HCl 20 mg/Sodium Chloride 252 ml @ 0 mls/hr CONT PRN IV SEE I/O RECORD Last administered on 08/24/16 07:28; Start 08/24/16 at 05:45 Albumin Human 500 ml @ 125 mls/hr 1X ONCE IV Last administered on 08/24/16 06:20; Start 08/24/16 at 05:45; Stop 08/24/16 at 09:44; Status DC Micafungin Sodium 100 mg/Dextrose 100 ml @ 100 mls/hr Q24H IV Last administered on 08/26/16 09:29; Start 08/24/16 at 09:00; Stop 08/27/16 at 07:37; Status DC Epinephrine HCl/ Sodium Chloride (Adrenalin/Iv Sodium Chloride 0.9% 250ml) 254 ml @ 0 mls/hr CONT PRN IV SEE I/O RECORD; Start 08/24/16 at 07:30; Status Cancel Epinephrine HCl (Adrenalin) 30 mg STK-MED ONCE .ROUTE ; Start 08/23/16 at 12:00 ; Stop 08/24/16 at 10:38; Status DC Epinephrine HCl 4 mg STK-MED ONCE .ROUTE ; Start 08/23/16 at 12:00; Stop at 10:38; Status DC Sodium Bicarbonate 100 meq 100 meq STK-MED ONCE .ROUTE ; Start 08/23/16 at 12:00 ; Stop 08/24/16 at 10:38; Status DC Levothyroxine Sodium 50 mcg/ Sodium Chloride 5 ml @ 100 mls/hr DAILY IVP Last administered on 09/02/16 08:50; Start 08/24/16 at 15:00 Phytonadione 10 mg/Sodium Chloride 51 ml @ 102 mls/hr 1X ONCE IV Last administered on 08/24/16 15:14; Start 08/24/16 at 14:30; Stop 08/24/16 at 14:59 ; Status DC Vasopressin/ Dextrose (Vasostrict) 102 ml @ 6 mls/hr CONT PRN IV SEE I/O RECORD Last administered on 08/26/16 05:44; Start 08/24/16 at 18:15; Stop at 18:47; Status DC Acetaminophen 650 mg 650 mg PRN Q6HRS PRN PEG MILD PAIN / TEMP Last administered on 09/02/16 08:40; Start 08/24/16 at 20:45 Levofloxacin/ Dextrose (LEVAQUIN 500mg PREMIX) 100 ml @ 100 mls/hr 1X ONCE IV Last administered on 08/25/16 08:06; Start 08/25/16 at 08:00; Stop 08/25/16 at 08:59; Status DC Insulin Aspart (Novolog) 0-9 UNITS TIDWMEALS SQ Last administered on 08/25/16 17:23; Start 08/25/16 at 08:00; Stop 08/25/16 at 19:32; Status DC Dextrose 12.5 gm PRN Q15MIN PRN IV SEE COMMENTS Last administered on 09/02/16 06:08; Start 08/25/16 at 07:30 Insulin Aspart 10 units 10 units 1X ONCE SQ Last administered on 08/25/16 08: 08; Start 08/25/16 at 08:00; Stop 08/25/16 at 08:01; Status DC Sodium Chloride 1,000 ml @ 50 mls/hr Q20H IV Last administered on 08/31/16 07: 36; Start 08/25/16 at 11:00; Stop 08/31/16 at 18:09; Status DC Potassium Chloride/Sodium Chloride (Iv Sodium Chloride 0.45%) 1,015 ml @ 75 mls /hr 1X ONCE IV Last administered on 08/25/16 10:55; Start 08/25/16 at 11:00; Stop 08/26/16 at 00:31; Status DC Insulin Aspart 10 units 10 units 1X ONCE SQ Last administered on 08/25/16 12: 42; Start 08/25/16 at 12:45; Stop 08/25/16 at 12:46; Status DC Vancomycin HCl/ Sodium Chloride (Iv Sodium Chloride 0.9% 250ml) 250 ml @ 250 mls/hr Q18H IV Last administered on 08/26/16 06:39; Start 08/25/16 at 13:00; Stop 08/26/16 at 08:18; Status DC Insulin Aspart 0-9 UNITS Q6HRS SQ Last administered on 09/02/16 00:22; Start at 00:00 Levofloxacin/ Dextrose 100 ml @ 100 mls/hr 1X ONCE IV Last administered on 09:28; Start 08/26/16 at 09:30; Stop 08/26/16 at 10:29; Status DC Potassium Chloride/Sodium Chloride (Iv Sodium Chloride 0.45%) 1,015 ml @ 75 mls /hr 1X ONCE IV Last administered on 08/26/16 15:23; Start 08/26/16 at 11:00; Stop 08/27/16 at 00:31; Status DC Hydrocortisone Sodium Succinate 100 mg 100 mg BID IV Last administered on 08:15; Start 08/27/16 at 09:00; Stop 08/30/16 at 09:26; Status DC Amino Acids/ Electrolytes/ Dextrose 1,000 ml @ 80 mls/hr [id number] IV Last administered on 09/02/16 00:11; Start 08/27/16 at 12:30; Stop 09/02/16 at 08:13; Status DC Potassium Chloride (KCl Premix 20meq) 50 ml @ 50 mls/hr 1X ONCE IV Last administered on 08/27/16 15:29; Start 08/27/16 at 12:30; Stop 08/27/16 at 13:29; Status DC Insulin Aspart 15 units 15 units 1X ONCE SQ Last administered on 08/28/16 07: 13; Start 08/28/16 at 07:15; Stop 08/28/16 at 07:16; Status DC Propofol 100 ml @ As Directed STK-MED ONCE IV ; Start 08/29/16 at 16:23; Stop at 16:24; Status DC Propofol (Diprivan) 100 ml @ 0 mls/hr CONT PRN IV SEE I/O RECORD Last administered on 08/29/16 16:30; Start 08/29/16 at 18:00 Insulin Aspart 6 units 6 units 1X ONCE SQ Last administered on 08/30/16 08:18 ; Start 08/30/16 at 07:15; Stop 08/30/16 at 07:16; Status DC Potassium Chloride (KCl Premix 20meq) 50 ml @ 50 mls/hr Q1H IV Last administered on 08/30/16 12:00; Start 08/30/16 at 07:30; Stop 08/30/16 at 09:29; Status DC Hydrocortisone Sodium Succinate (Solu-Cortef) 50 mg BID IV Last administered on 08/31/16 09:28; Start 08/30/16 at 21:00; Stop 08/31/16 at 09:41; Status DC Insulin Aspart (Novolog) 10 units 1X ONCE SQ Last administered on 08/31/16 00: 49; Start 08/31/16 at 01:00; Stop 08/31/16 at 01:01; Status DC Hydrocortisone Sodium Succinate (Solu-Cortef) 25 mg BID IV Last administered on 09/01/16 09:27; Start 08/31/16 at 21:00; Stop 09/01/16 at 12:11; Status DC Insulin Aspart (Novolog) 10 units TIDAC SQ Last administered on 08/31/16 16:36 ; Start 08/31/16 at 11:30; Stop 09/01/16 at 08:59; Status DC Insulin Detemir 15 units 15 units DAILY10 SQ Last administered on 08/31/16 11: 59; Start 08/31/16 at 11:30; Stop 09/01/16 at 08:59; Status DC Potassium Chloride (KCl Premix 20meq) 50 ml @ 50 mls/hr Q1H IV Last administered on 08/31/16 16:32; Start 08/31/16 at 12:00; Stop 08/31/16 at 15:59; Status DC Potassium Chloride (KCl Oral Soln) 20 meq 1X ONCE PEG ; Start 08/31/16 at 15:00 ; Stop 08/31/16 at 15:00; Status DC Potassium Chloride (KCl Oral Soln) 20 meq DAILY PEG Last administered on 08:39; Start 09/01/16 at 09:00 Potassium Chloride (KCl Oral Soln) 40 meq 1X ONCE PEG Last administered on 08/31 16:32; Start 08/31/16 at 14:30; Stop 08/31/16 at 14:31; Status DC Insulin Aspart (Novolog) 10 units Q6HRS SQ Last administered on 09/02/16 00:23 ; Start 09/01/16 at 12:00; Stop 09/02/16 at 08:13; Status DC Insulin Detemir (Levemir) 20 units QHS SQ Last administered on 09/01/16 21:00; Start 09/01/16 at 21:00; Stop 09/02/16 at 08:13; Status DC Cefpodoxime Proxetil (Vantin) 100 mg BID PO Last administered on 09/02/16 08:40 ; Start 09/01/16 at 10:00 Metoclopramide HCl (Reglan) 5 mg QIDACHS IV Last administered on 09/02/16 08:34 ; Start 09/01/16 at 11:30 Insulin Aspart (Novolog) 5 units Q6HRS SQ ; Start 09/02/16 at 12:00 Insulin Detemir (Levemir) 10 units QHS SQ ; Start 09/02/16 at 21:00 Furosemide (Lasix) 40 mg 1X ONCE IVP Last administered on 09/02/16t 08:47; Start 09/02/16 at 08:15; Stop 09/02/16 at 08:23; Status DC Active Scripts Active Reported Milk Of Magnesia (Magnesium Hydroxide) 2,400 Mg/10 Ml Oral.susp 2,400 Mg PO DAILY PRN Dulcolax (Bisacodyl) 10 Mg Supp.rect 10 Mg RC PRN DAILY PRN Aspirin 325 Mg Tablet 1 Tab PEG DAILY Tylenol (Acetaminophen) 325 Mg Tablet 2 Tab PO PRN Q6HRS PRN Vitamin B Complex 1 Each Tablet 1 Tab PO DAILY Vitamin D3 (Cholecalciferol (Vitamin D3)) 1,000 Unit Tablet 2,000 Unit PO DAILY Keppra (Levetiracetam) 500 Mg Tablet 500 Mg PO BID Vitals/I & O Vital Sign - Last 24 Hours 09/01/16 09/01/16 09/01/16 09/01/16 12:13 16:00 16:21 17:30 Temp 99.9 100.0 99.9 100.0 Pulse 103 Resp 28 B/P 106/65 Pulse Ox 96 O2 Delivery Nasal Cannula Nasal Cannula Nasal Cannula O2 Flow Rate 2.0 2.0 2.0 09/01/16 09/01/16 09/01/16 09/01/16 18:14 19:46 19:49 20:00 Temp 99.3 99.0 99.3 99.0 Pulse 107 Resp 20 B/P 126/86 Pulse Ox 98 96 O2 Delivery Nasal Cannula Nasal Cannula Nasal Cannula O2 Flow Rate 2.0 2.0 2.0 09/01/16 09/02/16 09/02/16 09/02/16 23:40 03:21 07:00 07:00 Temp 98.2 100.6 101.3 98.2 100.6 101.3 Pulse 100 114 125 Resp 20 24 36 B/P 115/73 118/76 107/73 110/60 Pulse Ox 98 92 91 O2 Delivery Nasal Cannula Nasal Cannula Nasal Cannula O2 Flow Rate 2.0 2.0 2.0 09/02/16 09/02/16 08:07 11:21 Temp 100.0 100.0 Pulse 113 Resp 15 B/P 102/52 Pulse Ox 94 100 O2 Delivery Nasal Cannula Nasal Cannula O2 Flow Rate 2.0 2.0 Intake and Output 09/01/16 09/01/16 09/02/16 15:00 23:00 07:00 Intake Total 80 ml 175 ml 1085 ml Output Total 0 ml 1150 ml 1150 ml Balance 80 ml -975 ml -65 ml SOLANGE ESPOSITO MD Sep 02, 2016 12:11
--- NOTE | 2016-09-02 12:18 | PDOC ---
Objective: Objective: Per RN - minimal residual, increasing rate. Vital Signs: Vital Signs Date Time Temp Pulse Resp B/P Pulse Ox O2 Delivery O2 Flow Rate FiO2 09/02/16 11:21 100.0 113 15 102/52 100 Nasal Cannula 2.0 100.0 Labs: Laboratory Tests Test 09/01/16 16:55 09/01/16 20:50 09/02/16 00:17 09/02/16 04:12 Glucose (Fingerstick) 303mg/dL 222mg/dL 180mg/dL White Blood Count 18.2x10^3/uL Red Blood Count 2.73x10^6/uL Hemoglobin 9.5g/dL Hematocrit 28.6% Mean Corpuscular Volume 105fL Mean Corpuscular Hemoglobin 35pg Mean Corpuscular Hemoglobin Concent 33g/dL Red Cell Distribution Width 15.1% Platelet Count 120x10^3/uL Neutrophils (%) (Auto) 88% Lymphocytes (%) (Auto) 8% Monocytes (%) (Auto) 3% Eosinophils (%) (Auto) 2% Basophils (%) (Auto) 0% Neutrophils # (Auto) 16.0x10^3uL Lymphocytes # (Auto) 1.4x10^3/uL Monocytes # (Auto) 0.5x10^3/uL Eosinophils # (Auto) 0.3x10^3/uL Basophils # (Auto) 0.0x10^3/uL Sodium Level 147mmol/L Potassium Level 3.0mmol/L Chloride Level 108mmol/L Carbon Dioxide Level 35mmol/L Anion Gap 4 Blood Urea Nitrogen 20mg/dL Creatinine 0.8mg/dL Estimated GFR (Cockcroft-Gault) 121.4 Glucose Level 60mg/dL Calcium Level 7.8mg/dL Test 09/02/16 05:57 09/02/16 06:37 09/02/16 11:44 Glucose (Fingerstick) 56mg/dL 74mg/dL 78mg/dL PE: GEN: NAD LUNGS: coarse anteriorly bilaterally HEART: tachycardic ABD: BS+, non-tender, PEG NEURO/PSYCH: awake A/P: PEG in place -added IV Reglan yesterday w/ increased residual - now improved, increasing rate Leukocytosis, fever -- Continue same per GI. LUCIO YODER Sep 02, 2016 12:18
--- NOTE | 2016-09-02 12:29 | RAD ---
EXAM: Left upper extremity venous Doppler. HISTORY: Left upper extremity pain/swelling. PICC line. COMPARISON: None. FINDINGS: Grayscale and Doppler analysis of the left upper extremity deep venous system was performed with graded compression and augmentation. The internal jugular, subclavian, axillary, brachial, basilic, cephalic, radial and ulnar veins were assessed. A PICC line is noted within the left brachial and axillary veins. There is nonocclusive thrombus adjacent to the PICC line at these sites. Thrombosis may become occlusive along the midportion of the brachial vein. Bandages partially obscure the radial and normal veins. The cephalic vein is not visualized. No additional thrombosis is seen. Subcutaneous edema is noted. IMPRESSION: 1. Deep venous thrombosis adjacent to a PICC line within the left brachial and axillary veins.
[2016-09-02 13:56] LABS: INR 1.3 (0.8-1.1); PROTHROMBIN TIME PATIENT 15.5 SEC (11.7-14.0)
[2016-09-02 14:59] VITALS: BP 88/47
[2016-09-02] MEDS: ENOXAPARIN ** NOTE DOSE ** SYRINGE SQ SCH ×2 (15:52→21:48)
[2016-09-02] MEDS: METOCLOPRAMIDE HCL 10 MG/10 ML SOLUTION. PO SCH ×2 (15:52→21:47)
[2016-09-02] MEDS ORDERED: WARFARIN 5 MG TABLET. PO SCH (16:00)
[2016-09-02 20:05] VITALS: BP 117/67
[2016-09-02] MEDS: INSULIN DETEMIR 300 UNITS/3 ML INSULN.PEN. SQ SCH (21:00)
[2016-09-02] MEDS: LEVETIRACETAM 500 MG/5 ML SOLUTION PEG SCH (21:47)
[2016-09-03] MEDS: INSULIN ASPART 300 UNITS/3 ML INSULN.PEN SQ SCH ×4 (00:14→17:25)
[2016-09-03 05:27] LABS: BASO % 0 % (0-3); EOS % 2 % (0-3); HEMATOCRIT 24.7 % (39.0-53.0); HEMOGLOBIN 7.9 g/dL (13.0-17.5); LYMPH # 1.2 x10^3/uL (1.0-4.8); LYMPH % 10 % (24-48); MEAN CORPUSCULAR HEMOGLOBIN 35 pg (25-35); MEAN CORPUSCULAR HGB CONC 32 g/dL (31-37); MEAN CORPUSCULAR VOLUME 108 fL (79-100); MONO % 3 % (0-9); NEUT % 85 % (31-73); PLATELET COUNT 118 x10^3/uL (140-400); RED BLOOD COUNT 2.29 x10^6/uL (4.30-5.70); RED CELL DISTRIBUTION WIDTH 15.4 % (11.5-14.5); WHITE BLOOD COUNT 12.1 x10^3/uL (4.0-11.0)
[2016-09-03 05:37] LABS: INR 1.5 (0.8-1.1); PROTHROMBIN TIME PATIENT 17.2 SEC (11.7-14.0)
[2016-09-03 06:00] LABS: CALCIUM 7.2 mg/dL (8.5-10.1); CREATININE 0.9 mg/dL (0.7-1.3); POTASSIUM 3.6 mmol/L (3.5-5.1)
[2016-09-03] MEDS: LEVOTHYROXINE 100 MCG TABLET PO SCH (06:03)
[2016-09-03 07:20] VITALS: BP 137/86
[2016-09-03] MEDS: IPRATRPIUM/ALBUTEROL 0.5/2.5MG 3 ML NEBU. NEB SCH ×4 (07:23→19:48)
[2016-09-03] MEDS ORDERED: PANTOPRAZOLE 40 MG TABLET. PO SCH (07:30)
[2016-09-03] MEDS: METOCLOPRAMIDE HCL 10 MG/10 ML SOLUTION. PO SCH ×4 (07:40→21:05)
--- NOTE | 2016-09-03 08:44 | RAD ---
Portable chest, 09/03/2016: History: Pneumonia Comparison is made to a study from 09/01/2016. The patient is rotated to the right. The left PICC has been removed. The heart is within normal limits in size. There are patchy bilateral pulmonary infiltrates. These have shown no significant improvement. There is persistent blunting of the lateral costophrenic angles suggesting a small amount of associated pleural fluid. Moderate degenerative change is present in the spine and at the left shoulder. IMPRESSION: Moderate ongoing patchy bilateral pulmonary infiltrates suggesting pneumonia versus pulmonary edema with a small amount of associated pleural fluid.
[2016-09-03] MEDS: ASPIRIN 325 MG TABLET PEG SCH (08:54)
[2016-09-03] MEDS: POTASSIUM CHLORIDE 20 MEQ/15 ML ORAL LIQUID. PEG SCH (08:55)
[2016-09-03] MEDS: LANSOPRAZOLE 30 MG TAB.RAP.DR PEG SCH (08:55)
[2016-09-03] MEDS: LEVETIRACETAM 500 MG/5 ML SOLUTION PEG SCH ×2 (08:55→21:05)
[2016-09-03] MEDS: CEFPODOXIME PROXETIL 100 MG TABLET PO SCH ×2 (08:56→21:05)
[2016-09-03] MEDS: VITAMIN B COMPLEX TABLET. PO SCH (08:56)
[2016-09-03] MEDS: CHOLECALCIFEROL (VITAMIN D3) 1,000 UNIT TABLET PO SCH (08:57)
[2016-09-03] MEDS: ACETAMINOPHEN 650 MG/20.3 ML SOLUTION. PEG PRN (08:59)
[2016-09-03 09:47] LABS: NEG OBC FOB NEG; POS OBC FOB POS
--- NOTE | 2016-09-03 10:04 | PDOC ---
PULMONARY PROGRESS NOTES Subjective extubated 08/30 no soa still with fever Vitals Vital Signs Date Time Temp Pulse Resp B/P Pulse Ox O2 Delivery O2 Flow Rate FiO2 09/03/16 07:24 95 Nasal Cannula 3.0 09/03/16 07:20 99.3 108 20 137/86 99.3 General: No acute distress Lungs: Clear Cardiovascular: S1, S2 Abdomen: Soft Extremities: Other (swelling left upper, lower extremity edema) Skin: Warm Labs Laboratory Tests Test 09/01/16 11:56 09/01/16 16:55 09/01/16 20:50 09/02/16 00:17 Glucose (Fingerstick) 332mg/dL (70-99) 303mg/dL (70-99) 222mg/dL (70-99) 180mg/dL (70-99) Test 09/02/16 04:12 09/02/16 05:57 09/02/16 06:37 09/02/16 11:44 White Blood Count 18.2x10^3/uL (4.0-11.0) Red Blood Count 2.73x10^6/uL (4.30-5.70) Hemoglobin 9.5g/dL (13.0-17.5) Hematocrit 28.6% (39.0-53.0) Mean Corpuscular Volume 105fL (79-100) Mean Corpuscular Hemoglobin 35pg (25-35) Mean Corpuscular Hemoglobin Concent 33g/dL (31-37) Red Cell Distribution Width 15.1% (11.5-14.5) Platelet Count 120x10^3/uL (140-400) Neutrophils (%) (Auto) 88% (31-73) Lymphocytes (%) (Auto) 8% (24-48) Monocytes (%) (Auto) 3% (0-9) Eosinophils (%) (Auto) 2% (0-3) Basophils (%) (Auto) 0% (0-3) Neutrophils # (Auto) 16.0x10^3uL (1.8-7.7) Lymphocytes # (Auto) 1.4x10^3/uL (1.0-4.8) Monocytes # (Auto) 0.5x10^3/uL (0.0-1.1) Eosinophils # (Auto) 0.3x10^3/uL (0.0-0.7) Basophils # (Auto) 0.0x10^3/uL (0.0-0.2) Sodium Level 147mmol/L (136-145) Potassium Level 3.0mmol/L (3.5-5.1) Chloride Level 108mmol/L (98-107) Carbon Dioxide Level 35mmol/L (21-32) Anion Gap 4 (6-14) Blood Urea Nitrogen 20mg/dL (8-26) Creatinine 0.8mg/dL (0.7-1.3) Estimated GFR (Cockcroft-Gault) 121.4 Glucose Level 60mg/dL (70-99) Calcium Level 7.8mg/dL (8.5-10.1) Glucose (Fingerstick) 56mg/dL (70-99) 74mg/dL (70-99) 78mg/dL (70-99) Test 09/02/16 13:41 09/02/16 16:53 09/02/16 20:56 09/03/16 00:01 Prothrombin Time 15.5SEC (11.7-14.0) Prothromb Time International Ratio 1.3 (0.8-1.1) Glucose (Fingerstick) 90mg/dL (70-99) 185mg/dL (70-99) 238mg/dL (70-99) Test 09/03/16 04:25 09/03/16 06:05 09/03/16 09:20 White Blood Count 12.1x10^3/uL (4.0-11.0) Red Blood Count 2.29x10^6/uL (4.30-5.70) Hemoglobin 7.9g/dL (13.0-17.5) Hematocrit 24.7% (39.0-53.0) Mean Corpuscular Volume 108fL (79-100) Mean Corpuscular Hemoglobin 35pg (25-35) Mean Corpuscular Hemoglobin Concent 32g/dL (31-37) Red Cell Distribution Width 15.4% (11.5-14.5) Platelet Count 118x10^3/uL (140-400) Neutrophils (%) (Auto) 85% (31-73) Lymphocytes (%) (Auto) 10% (24-48) Monocytes (%) (Auto) 3% (0-9) Eosinophils (%) (Auto) 2% (0-3) Basophils (%) (Auto) 0% (0-3) Neutrophils # (Auto) 10.3x10^3uL (1.8-7.7) Lymphocytes # (Auto) 1.2x10^3/uL (1.0-4.8) Monocytes # (Auto) 0.4x10^3/uL (0.0-1.1) Eosinophils # (Auto) 0.2x10^3/uL (0.0-0.7) Basophils # (Auto) 0.0x10^3/uL (0.0-0.2) Prothrombin Time 17.2SEC (11.7-14.0) Prothromb Time International Ratio 1.5 (0.8-1.1) Sodium Level 144mmol/L (136-145) Potassium Level 3.6mmol/L (3.5-5.1) Chloride Level 106mmol/L (98-107) Carbon Dioxide Level 33mmol/L (21-32) Anion Gap 5 (6-14) Blood Urea Nitrogen 20mg/dL (8-26) Creatinine 0.9mg/dL (0.7-1.3) Estimated GFR (Cockcroft-Gault) 106.0 Glucose Level 204mg/dL (70-99) Calcium Level 7.2mg/dL (8.5-10.1) Glucose (Fingerstick) 213mg/dL (70-99) Stool Occult Blood Positive (NEG) Laboratory Tests Test 09/02/16 11:44 09/02/16 13:41 09/02/16 16:53 09/02/16 20:56 Glucose (Fingerstick) 78mg/dL (70-99) 90mg/dL (70-99) 185mg/dL (70-99) Prothrombin Time 15.5SEC (11.7-14.0) Prothromb Time International Ratio 1.3 (0.8-1.1) Test 09/03/16 00:01 09/03/16 04:25 09/03/16 06:05 09/03/16 09:20 Glucose (Fingerstick) 238mg/dL (70-99) 213mg/dL (70-99) White Blood Count 12.1x10^3/uL (4.0-11.0) Red Blood Count 2.29x10^6/uL (4.30-5.70) Hemoglobin 7.9g/dL (13.0-17.5) Hematocrit 24.7% (39.0-53.0) Mean Corpuscular Volume 108fL (79-100) Mean Corpuscular Hemoglobin 35pg (25-35) Mean Corpuscular Hemoglobin Concent 32g/dL (31-37) Red Cell Distribution Width 15.4% (11.5-14.5) Platelet Count 118x10^3/uL (140-400) Neutrophils (%) (Auto) 85% (31-73) Lymphocytes (%) (Auto) 10% (24-48) Monocytes (%) (Auto) 3% (0-9) Eosinophils (%) (Auto) 2% (0-3) Basophils (%) (Auto) 0% (0-3) Neutrophils # (Auto) 10.3x10^3uL (1.8-7.7) Lymphocytes # (Auto) 1.2x10^3/uL (1.0-4.8) Monocytes # (Auto) 0.4x10^3/uL (0.0-1.1) Eosinophils # (Auto) 0.2x10^3/uL (0.0-0.7) Basophils # (Auto) 0.0x10^3/uL (0.0-0.2) Prothrombin Time 17.2SEC (11.7-14.0) Prothromb Time International Ratio 1.5 (0.8-1.1) Sodium Level 144mmol/L (136-145) Potassium Level 3.6mmol/L (3.5-5.1) Chloride Level 106mmol/L (98-107) Carbon Dioxide Level 33mmol/L (21-32) Anion Gap 5 (6-14) Blood Urea Nitrogen 20mg/dL (8-26) Creatinine 0.9mg/dL (0.7-1.3) Estimated GFR (Cockcroft-Gault) 106.0 Glucose Level 204mg/dL (70-99) Calcium Level 7.2mg/dL (8.5-10.1) Stool Occult Blood Positive (NEG) Medications Active Scripts Medications Dose Route/Sig Days Date Category Milk Of Magnesia (Magnesium Hydroxide) 2,400 Mg/10 Ml Oral.susp 2,400 Mg PO DAILY PRN 08/21/15 Reported Dulcolax (Bisacodyl) 10 Mg Supp.rect 10 Mg RC PRN DAILY PRN 08/21/15 Reported Aspirin 325 Mg Tablet 1 Tab PEG DAILY 08/02/15 Reported Tylenol (Acetaminophen) 325 Mg Tablet 2 Tab PO PRN Q6HRS PRN 08/02/15 Reported Vitamin B Complex 1 Each Tablet 1 Tab PO DAILY 07/25/15 Reported Vitamin D3 (Cholecalciferol (Vitamin D3)) 1,000 Unit Tablet 2,000 Unit PO DAILY 07/25/15 Reported Keppra (Levetiracetam) 500 Mg Tablet 500 Mg PO BID 07/25/15 Reported Impression . 1. Acute hypoxic respiratory failure secondary septic shock, resolved, extubated 08/30 2. Septic shock cultures so far negative, resolved 3. Persistent abnormal chest x-ray with bilateral infiltrate 4. Acute severe metabolic acidosis with severe lactic acidosis secondary to sepsis/septic shock. MAHAD contributing to metabolic acidosis, improved 5. Hematuria 6. Urinary tract infection. 7. Coagulopathy, most likely related to early disseminated intravascular coagulation. 8. Underlying Down's syndrome 9. Dysphagia S/P PEG 10. New fever, ID following, left upper DVT 11. left upper DVT (brachial and axillary) due to PICC 12. GI bleed today Plan . nasal canula coumadin on hold per PCP due to GI bleed/ GI following. Not the best candidate for OP AC. 6 weeks of AC should be adequate if needed/ PICC removed TF OFF steroids give extra lasix follow ID recommendations regarding new fever SADA CORTEZ MD Sep 03, 2016 10:04
[2016-09-03] MEDS ORDERED: FUROSEMIDE 40 MG/4 ML VIAL IVP ONE (10:15)
[2016-09-03 10:35] VITALS: BP 110/71
--- NOTE | 2016-09-03 12:56 | PDOC ---
Objective: Objective: RN called earlier - blood in stool. Vital Signs: Vital Signs Date Time Temp Pulse Resp B/P Pulse Ox O2 Delivery O2 Flow Rate FiO2 09/03/16 11:34 Nasal Cannula 2.0 09/03/16 10:35 99.1 123 20 110/71 91 99.1 Labs: Laboratory Tests Test 09/02/16 16:53 09/02/16 20:56 09/03/16 00:01 09/03/16 06:05 Glucose (Fingerstick) 90mg/dL (70-99) 185mg/dL (70-99) 238mg/dL (70-99) 213mg/dL (70-99) Test 09/03/16 11:46 Glucose (Fingerstick) 271mg/dL (70-99) Imaging: UE US IMPRESSION: 1. Deep venous thrombosis adjacent to a PICC line within the left brachial and axillary veins. PE: GEN: NAD LUNGS: coarse HEART: tachycardic ABD: NABS, S/ND/NT, PEG NEURO/PSYCH: awake A/P: UE DVT -Coumadin started/held - considering filter? Hematochezia -Hgb to 7.9, hemoccult positive PEG in place -tolerating feeds w/ Reglan -- Will review w/ Dr. Johnson. LUCIO YODER Sep 03, 2016 12:55
--- NOTE | 2016-09-03 13:49 | PDOC ---
PROGRESS NOTES Chief Complaint Chief Complaint Resp failure - was intubated, breathing werll 1. Severe Sepsis, pneumonia 2. PNA, bed bound, , aspiration 3. Bed bound, non verbal, hx down's, and hx CVA 4. Dysphagia, indwelling PEG 5 MAHAD, vasomotor, now recovery phase with marked (critical) hypokalemia, 6. Gap metabolic acidosis, recent vomiting, severe sepsis 7. hypothyroidism 8. down syndrome 9. possible gastroparesis 10. h/o CVA 11. LEFT arm dvt with PICC 12. rectal bleeding with ac on 09/02 plan: 1. fu with pulm, id, GI 2. slowly PEG feeding with 9, KUB ruled out obstruction 3. change iv abx to po as per ID 4. on NC 2 L 4. dc aspart, cont levemir, decrease to 10u qhs, dc PPN, lasix 40mg ivx1 dc lovenox, warfarin, given rectal bleeding, cont asa for now. not a good candidate for AC check lower DVT, if +, need IVC filter dced steroid 5. hope to dc in 1-2 ds back home with HH talked to id and pulm History of Present Illness History of Present Illness DW RN code status changed to DNR on on this admit NON VERbal PEG feeding, chronic, at goal 50cc/h hyperglycemia gets low wo steroid fever again on 09/02, high wbc, tachycardia rectal bleeding on 09/03 with asa, lovenox and warfarin only one day on 09/02 + dvt with left arm PICC , removed line Vitals Vitals Vital Signs Date Time Temp Pulse Resp B/P Pulse Ox O2 Delivery O2 Flow Rate FiO2 09/03/16 11:34 Nasal Cannula 2.0 09/03/16 10:35 99.1 123 20 110/71 91 99.1 Physical Exam Physical Exam no follow commands or talk as baseline General: Alert, No acute distress, Other ( awake, ) Heart: Regular rate, No murmurs Lungs: Clear Abdomen: Normal bowel sounds, Soft, No tenderness Extremities: No clubbing Skin: No breakdown, No significant lesion Labs LABS Laboratory Tests Test 09/02/16 16:53 09/02/16 20:56 09/03/16 00:01 09/03/16 04:25 Glucose (Fingerstick) 90mg/dL (70-99) 185mg/dL (70-99) 238mg/dL (70-99) White Blood Count 12.1x10^3/uL (4.0-11.0) Red Blood Count 2.29x10^6/uL (4.30-5.70) Hemoglobin 7.9g/dL (13.0-17.5) Hematocrit 24.7% (39.0-53.0) Mean Corpuscular Volume 108fL (79-100) Mean Corpuscular Hemoglobin 35pg (25-35) Mean Corpuscular Hemoglobin Concent 32g/dL (31-37) Red Cell Distribution Width 15.4% (11.5-14.5) Platelet Count 118x10^3/uL (140-400) Neutrophils (%) (Auto) 85% (31-73) Lymphocytes (%) (Auto) 10% (24-48) Monocytes (%) (Auto) 3% (0-9) Eosinophils (%) (Auto) 2% (0-3) Basophils (%) (Auto) 0% (0-3) Neutrophils # (Auto) 10.3x10^3uL (1.8-7.7) Lymphocytes # (Auto) 1.2x10^3/uL (1.0-4.8) Monocytes # (Auto) 0.4x10^3/uL (0.0-1.1) Eosinophils # (Auto) 0.2x10^3/uL (0.0-0.7) Basophils # (Auto) 0.0x10^3/uL (0.0-0.2) Prothrombin Time 17.2SEC (11.7-14.0) Prothromb Time International Ratio 1.5 (0.8-1.1) Sodium Level 144mmol/L (136-145) Potassium Level 3.6mmol/L (3.5-5.1) Chloride Level 106mmol/L (98-107) Carbon Dioxide Level 33mmol/L (21-32) Anion Gap 5 (6-14) Blood Urea Nitrogen 20mg/dL (8-26) Creatinine 0.9mg/dL (0.7-1.3) Estimated GFR (Cockcroft-Gault) 106.0 Glucose Level 204mg/dL (70-99) Calcium Level 7.2mg/dL (8.5-10.1) Test 3/10/17 06:05 09/03/16 09:20 09/03/16 11:46 Glucose (Fingerstick) 213mg/dL (70-99) 271mg/dL (70-99) Stool Occult Blood Positive (NEG) Review of Systems Review of Systems no fever, chills chest pain Assessment and Plan Assessmemt and Plan Problems Medical Problems: (1) HAP (hospital-acquired pneumonia) Status: Acute (2) Pneumonia Status: Acute Problems: Comment Review of Relevant I have reviewed the following items kassie (where applicable) has been applied. Labs Laboratory Tests Test 09/01/16 16:55 09/01/16 20:50 09/02/16 00:17 09/02/16 04:12 Glucose (Fingerstick) 303mg/dL (70-99) 222mg/dL (70-99) 180mg/dL (70-99) White Blood Count 18.2x10^3/uL (4.0-11.0) Red Blood Count 2.73x10^6/uL (4.30-5.70) Hemoglobin 9.5g/dL (13.0-17.5) Hematocrit 28.6% (39.0-53.0) Mean Corpuscular Volume 105fL (79-100) Mean Corpuscular Hemoglobin 35pg (25-35) Mean Corpuscular Hemoglobin Concent 33g/dL (31-37) Red Cell Distribution Width 15.1% (11.5-14.5) Platelet Count 120x10^3/uL (140-400) Neutrophils (%) (Auto) 88% (31-73) Lymphocytes (%) (Auto) 8% (24-48) Monocytes (%) (Auto) 3% (0-9) Eosinophils (%) (Auto) 2% (0-3) Basophils (%) (Auto) 0% (0-3) Neutrophils # (Auto) 16.0x10^3uL (1.8-7.7) Lymphocytes # (Auto) 1.4x10^3/uL (1.0-4.8) Monocytes # (Auto) 0.5x10^3/uL (0.0-1.1) Eosinophils # (Auto) 0.3x10^3/uL (0.0-0.7) Basophils # (Auto) 0.0x10^3/uL (0.0-0.2) Sodium Level 147mmol/L (136-145) Potassium Level 3.0mmol/L (3.5-5.1) Chloride Level 108mmol/L (98-107) Carbon Dioxide Level 35mmol/L (21-32) Anion Gap 4 (6-14) Blood Urea Nitrogen 20mg/dL (8-26) Creatinine 0.8mg/dL (0.7-1.3) Estimated GFR (Cockcroft-Gault) 121.4 Glucose Level 60mg/dL (70-99) Calcium Level 7.8mg/dL (8.5-10.1) Test 09/02/16 05:57 09/02/16 06:37 09/02/16 11:44 09/02/16 13:41 Glucose (Fingerstick) 56mg/dL (70-99) 74mg/dL (70-99) 78mg/dL (70-99) Prothrombin Time 15.5SEC (11.7-14.0) Prothromb Time International Ratio 1.3 (0.8-1.1) Test 09/02/16 16:53 09/02/16 20:56 09/03/16 00:01 09/03/16 04:25 Glucose (Fingerstick) 90mg/dL (70-99) 185mg/dL (70-99) 238mg/dL (70-99) White Blood Count 12.1x10^3/uL (4.0-11.0) Red Blood Count 2.29x10^6/uL (4.30-5.70) Hemoglobin 7.9g/dL (13.0-17.5) Hematocrit 24.7% (39.0-53.0) Mean Corpuscular Volume 108fL (79-100) Mean Corpuscular Hemoglobin 35pg (25-35) Mean Corpuscular Hemoglobin Concent 32g/dL (31-37) Red Cell Distribution Width 15.4% (11.5-14.5) Platelet Count 118x10^3/uL (140-400) Neutrophils (%) (Auto) 85% (31-73) Lymphocytes (%) (Auto) 10% (24-48) Monocytes (%) (Auto) 3% (0-9) Eosinophils (%) (Auto) 2% (0-3) Basophils (%) (Auto) 0% (0-3) Neutrophils # (Auto) 10.3x10^3uL (1.8-7.7) Lymphocytes # (Auto) 1.2x10^3/uL (1.0-4.8) Monocytes # (Auto) 0.4x10^3/uL (0.0-1.1) Eosinophils # (Auto) 0.2x10^3/uL (0.0-0.7) Basophils # (Auto) 0.0x10^3/uL (0.0-0.2) Prothrombin Time 17.2SEC (11.7-14.0) Prothromb Time International Ratio 1.5 (0.8-1.1) Sodium Level 144mmol/L (136-145) Potassium Level 3.6mmol/L (3.5-5.1) Chloride Level 106mmol/L (98-107) Carbon Dioxide Level 33mmol/L (21-32) Anion Gap 5 (6-14) Blood Urea Nitrogen 20mg/dL (8-26) Creatinine 0.9mg/dL (0.7-1.3) Estimated GFR (Cockcroft-Gault) 106.0 Glucose Level 204mg/dL (70-99) Calcium Level 7.2mg/dL (8.5-10.1) Test 09/03/16 06:05 09/03/16 09:20 09/03/16 11:46 Glucose (Fingerstick) 213mg/dL (70-99) 271mg/dL (70-99) Stool Occult Blood Positive (NEG) Laboratory Tests Test 09/02/16 16:53 09/02/16 20:56 09/03/16 00:01 09/03/16 04:25 Glucose (Fingerstick) 90mg/dL (70-99) 185mg/dL (70-99) 238mg/dL (70-99) White Blood Count 12.1x10^3/uL (4.0-11.0) Red Blood Count 2.29x10^6/uL (4.30-5.70) Hemoglobin 7.9g/dL (13.0-17.5) Hematocrit 24.7% (39.0-53.0) Mean Corpuscular Volume 108fL (79-100) Mean Corpuscular Hemoglobin 35pg (25-35) Mean Corpuscular Hemoglobin Concent 32g/dL (31-37) Red Cell Distribution Width 15.4% (11.5-14.5) Platelet Count 118x10^3/uL (140-400) Neutrophils (%) (Auto) 85% (31-73) Lymphocytes (%) (Auto) 10% (24-48) Monocytes (%) (Auto) 3% (0-9) Eosinophils (%) (Auto) 2% (0-3) Basophils (%) (Auto) 0% (0-3) Neutrophils # (Auto) 10.3x10^3uL (1.8-7.7) Lymphocytes # (Auto) 1.2x10^3/uL (1.0-4.8) Monocytes # (Auto) 0.4x10^3/uL (0.0-1.1) Eosinophils # (Auto) 0.2x10^3/uL (0.0-0.7) Basophils # (Auto) 0.0x10^3/uL (0.0-0.2) Prothrombin Time 17.2SEC (11.7-14.0) Prothromb Time International Ratio 1.5 (0.8-1.1) Sodium Level 144mmol/L (136-145) Potassium Level 3.6mmol/L (3.5-5.1) Chloride Level 106mmol/L (98-107) Carbon Dioxide Level 33mmol/L (21-32) Anion Gap 5 (6-14) Blood Urea Nitrogen 20mg/dL (8-26) Creatinine 0.9mg/dL (0.7-1.3) Estimated GFR (Cockcroft-Gault) 106.0 Glucose Level 204mg/dL (70-99) Calcium Level 7.2mg/dL (8.5-10.1) Test 09/03/16 06:05 09/03/16 09:20 09/03/16 11:46 Glucose (Fingerstick) 213mg/dL (70-99) 271mg/dL (70-99) Stool Occult Blood Positive (NEG) Microbiology 09/02/16 Blood Culture - Preliminary, Resulted NO GROWTH AFTER 1 DAY 08/23/16 Urine Culture - Final, Complete 08/23/16 Urine Culture Result 1 (SHANON) - Final, Complete 08/23/16 Antimicrobic Susceptibility - Final, Complete Medications Current Medications Sodium Chloride 1,000 ml @ 1,000 mls/hr 1X ONCE IV Last administered on 11:16; Start 08/23/16 at 11:15; Stop 08/23/16 at 12:14; Status DC Sodium Chloride (Iv Sodium Chloride 0.9% 1000ml Bag) 1,000 ml @ 1,000 mls/hr 1X ONCE IV Last administered on 08/23/16 11:30; Start 08/23/16 at 11:30; Stop 08/23/16 at 12:29; Status DC Vancomycin HCl (Vanco Per Pharmacy) 1 each PRN DAILY PRN MC SEE COMMENTS Last administered on 08/25/16 13:04; Start 08/23/16 at 11:30; Stop 08/26/16 at 08:18; Status DC Piperacillin Sod/ Tazobactam Sod 1 each 1 each PRN DAILY PRN MC SEE COMMENTS; Start 08/23/16 at 11:30; Stop 08/25/16 at 09:54; Status DC Levofloxacin/ Dextrose 100 ml @ 100 mls/hr 1X ONCE IV Last administered on 12:58; Start 08/23/16 at 11:30; Stop 08/23/16 at 12:29; Status DC Piperacillin Sod/ Tazobactam Sod 4.5 gm/Sodium Chloride 100 ml @ 200 mls/hr 1X ONCE IV Last administered on 08/23/16 12:00; Start 08/23/16 at 12:00; Stop 08/23/16 at 12:29; Status DC Vancomycin HCl 1.5 gm/Sodium Chloride 500 ml @ 250 mls/hr 1X ONCE IV Last administered on 08/23/16 12:30; Start 08/23/16 at 12:30; Stop 08/23/16 at 14:29 ; Status DC Sodium Chloride 1,000 ml @ 1,000 mls/hr 1X ONCE IV Last administered on 12:46; Start 08/23/16 at 12:30; Stop 08/23/16 at 13:29; Status DC Piperacillin Sod/ Tazobactam Sod 3.375 gm/Sodium Chloride 50 ml @ 100 mls/hr Q6HRS IV Last administered on 09/01/16 05:29; Start 08/23/16 at 18:00; Stop 09/01/16 at 09:08; Status DC Vancomycin HCl/ Sodium Chloride (Iv Sodium Chloride 0.9% 250ml) 250 ml @ 250 mls/hr Q24H IV ; Start 08/24/16 at 13:00; Status Cancel Vancomycin HCl 1 each 1X ONCE MC ; Start 08/25/16 at 12:30; Stop 08/25/16 at 12: 31; Status DC Labetalol HCl (Normodyne) 10 mg PRN Q2HR PRN IVP HYPERTENSION, SEE COMMENTS; Start 08/23/16 at 15:45 Aspirin (Luis Armando Aspirin) 325 mg DAILY PEG Last administered on 09/02/16 08:38; Start 08/24/16 at 09:00 Bisacodyl (Dulcolax Supp) 10 mg PRN DAILY PRN RC CONSTIPATION Last administered on 08/29/16 15:48; Start 08/23/16 at 15:45 Vitamin D (Vitamin D3) 2,000 unit DAILY PO Last administered on 09/03/16 08:57 ; Start 08/24/16 at 09:00 Levetiracetam (Keppra) 500 mg BID PO ; Start 08/23/16 at 21:00; Stop 08/23/16 at 21:00; Status DC Vitamin B Complex (Hector B) 1 tab DAILY PO Last administered on 09/03/16 08:56 ; Start 08/24/16 at 09:00 Magnesium Hydroxide (Milk Of Magnesia) 2,400 mg PRN DAILY PRN PO CONSTIPATION; Start 08/23/16 at 15:45 Acetaminophen 500 mg 500 mg PRN Q6HRS PRN PO MILD PAIN / TEMP; Start 08/23/16 at 15:45 Levetiracetam/ Sodium Chloride (Keppra/Iv Sodium Chloride 0.9% 100ml) 105 ml @ 400 mls/hr Q12HR IV Last administered on 09/02/16 08:49; Start 08/23/16 at 21: 00; Stop 09/02/16 at 13:11; Status DC Pantoprazole Sodium (Protonix Vial) 40 mg DAILYAC IVP Last administered on 08:36; Start 08/24/16 at 07:30; Stop 09/02/16 at 13:11; Status DC Heparin Sodium (Porcine) 5000 unit 5,000 unit Q8HRS SQ ; Start 08/23/16 at 22:00 ; Stop 08/23/16 at 22:00; Status DC Sodium Bicarbonate/ Dextrose 1,150 ml @ 150 mls/hr Q7H40M IV Last administered on 08/25/16 08:05; Start 08/23/16 at 16:30; Stop 08/25/16 at 10:35; Status DC Sodium Bicarbonate 50 meq 1X ONCE IV Last administered on 08/23/16 16:24; Start 08/23/16 at 16:15; Stop 08/23/16 at 16:17; Status DC Albuterol/ Ipratropium 3 ml 3 ml RTQID NEB Last administered on 09/03/16 11:33 ; Start 08/23/16 at 20:00 Vancomycin HCl 750 mg/Sodium Chloride 250 ml @ 250 mls/hr Q24H IV Last administered on 08/24/16 12:15; Start 08/24/16 at 13:00; Stop 08/25/16 at 12:55 ; Status DC Norepinephrine Bitartrate 8 mg/ Sodium Chloride 258 ml @ 0 mls/hr CONT PRN IV SEE I/O RECORD Last administered on 08/25/16 00:28; Start 08/23/16 at 18:15; Stop 09/01/16 at 09:01; Status DC Sodium Chloride (Iv Sodium Chloride 0.9% 1000ml Bag) 1,000 ml @ 500 mls/hr Q2H IV Last administered on 08/23/16 17:00; Start 08/23/16 at 18:30; Stop at 20:29; Status DC Hydrocortisone Sodium Succinate (Solu-Cortef) 100 mg Q8HRS IV Last administered on 08/26/16 14:54; Start 08/23/16 at 22:30; Stop 08/26/16 at 16:49; Status DC Succinylcholine Chloride (Anectine) 200 mg STK-MED ONCE .ROUTE ; Start 08/24/16 at 04:15; Stop 08/24/16 at 04:16; Status DC Etomidate 20 mg 20 mg STK-MED ONCE IV ; Start 08/24/16 at 04:15; Stop 08/24/16 at 04:16; Status DC Fentanyl Citrate (Fentanyl 600 Mcg/30 ml DEFENSIVE LINE COACH) 30 ml @ 0 mls/hr CONT PRN IV PROTOCOL Last administered on 08/30/16 04:54; Start 08/24/16 at 04:45; Stop 04/12 at 08:03; Status DC Fentanyl Citrate (Fentanyl 2ml Vial) 25 mcg PRN Q1HR PRN IV COMM Last administered on 08/29/16 07:44; Start 08/24/16 at 04:45; Stop 08/30/16 at 16:51; Status DC Fentanyl Citrate (Fentanyl 2ml Vial) 50 mcg PRN Q1HR PRN IV COMM; Start at 04:45; Status Cancel Chlorhexidine Gluconate 15 ml 15 ml BID MM Last administered on 08/30/16 08:15 ; Start 08/24/16 at 09:00; Stop 08/30/16 at 22:16; Status DC Midazolam HCl 100 ml @ 0 mls/hr CONT PRN IV PER PROTOCOL Last administered on 10:50; Start 08/24/16 at 04:45; Stop 09/01/16 at 09:02; Status DC Midazolam HCl 100 ml @ As Directed STK-MED ONCE IV ; Start 08/24/16 at 04:52; Stop 08/24/16 at 04:53; Status DC Sodium Chloride 1,000 ml @ 150 mls/hr Q6H40M IV Last administered on 06:13; Start 08/24/16 at 05:45; Stop 08/24/16 at 09:59; Status DC Vasopressin 40 unit/Dextrose 102 ml @ 6 mls/hr 1X ONCE IV Last administered on 08/24/16 06:12; Start 08/24/16 at 06:00; Stop 08/24/16 at 20:00; Status DC Phenylephrine HCl 20 mg/Sodium Chloride 252 ml @ 0 mls/hr CONT PRN IV SEE I/O RECORD Last administered on 08/24/16 07:28; Start 08/24/16 at 05:45; Stop 09/03 at 08:03; Status DC Albumin Human 500 ml @ 125 mls/hr 1X ONCE IV Last administered on 08/24/16 06:20; Start 08/24/16 at 05:45; Stop 08/24/16 at 09:44; Status DC Micafungin Sodium 100 mg/Dextrose 100 ml @ 100 mls/hr Q24H IV Last administered on 08/26/16 09:29; Start 08/24/16 at 09:00; Stop 08/27/16 at 07:37; Status DC Epinephrine HCl/ Sodium Chloride (Adrenalin/Iv Sodium Chloride 0.9% 250ml) 254 ml @ 0 mls/hr CONT PRN IV SEE I/O RECORD; Start 08/24/16 at 07:30; Status Cancel Epinephrine HCl (Adrenalin) 30 mg STK-MED ONCE .ROUTE ; Start 08/23/16 at 12:00 ; Stop 08/24/16 at 10:38; Status DC Epinephrine HCl 4 mg STK-MED ONCE .ROUTE ; Start 08/23/16 at 12:00; Stop at 10:38; Status DC Sodium Bicarbonate 100 meq 100 meq STK-MED ONCE .ROUTE ; Start 08/23/16 at 12:00 ; Stop 08/24/16 at 10:38; Status DC Levothyroxine Sodium 50 mcg/ Sodium Chloride 5 ml @ 100 mls/hr DAILY IVP Last administered on 09/02/16 08:50; Start 08/24/16 at 15:00; Stop 09/02/16 at 13:11; Status DC Phytonadione 10 mg/Sodium Chloride 51 ml @ 102 mls/hr 1X ONCE IV Last administered on 08/24/16 15:14; Start 08/24/16 at 14:30; Stop 08/24/16 at 14:59 ; Status DC Vasopressin/ Dextrose (Vasostrict) 102 ml @ 6 mls/hr CONT PRN IV SEE I/O RECORD Last administered on 08/26/16 05:44; Start 08/24/16 at 18:15; Stop at 18:47; Status DC Acetaminophen 650 mg 650 mg PRN Q6HRS PRN PEG MILD PAIN / TEMP Last administered on 09/03/16 08:59; Start 08/24/16 at 20:45 Levofloxacin/ Dextrose (LEVAQUIN 500mg PREMIX) 100 ml @ 100 mls/hr 1X ONCE IV Last administered on 08/25/16 08:06; Start 08/25/16 at 08:00; Stop 08/25/16 at 08:59; Status DC Insulin Aspart (Novolog) 0-9 UNITS TIDWMEALS SQ Last administered on 08/25/16 17:23; Start 08/25/16 at 08:00; Stop 08/25/16 at 19:32; Status DC Dextrose 12.5 gm PRN Q15MIN PRN IV SEE COMMENTS Last administered on 09/02/16 06:08; Start 08/25/16 at 07:30 Insulin Aspart 10 units 10 units 1X ONCE SQ Last administered on 08/25/16 08: 08; Start 08/25/16 at 08:00; Stop 08/25/16 at 08:01; Status DC Sodium Chloride 1,000 ml @ 50 mls/hr Q20H IV Last administered on 08/31/16 07: 36; Start 08/25/16 at 11:00; Stop 08/31/16 at 18:09; Status DC Potassium Chloride/Sodium Chloride (Iv Sodium Chloride 0.45%) 1,015 ml @ 75 mls /hr 1X ONCE IV Last administered on 08/25/16 10:55; Start 08/25/16 at 11:00; Stop 08/26/16 at 00:31; Status DC Insulin Aspart 10 units 10 units 1X ONCE SQ Last administered on 08/25/16 12: 42; Start 08/25/16 at 12:45; Stop 08/25/16 at 12:46; Status DC Vancomycin HCl/ Sodium Chloride (Iv Sodium Chloride 0.9% 250ml) 250 ml @ 250 mls/hr Q18H IV Last administered on 08/26/16 06:39; Start 08/25/16 at 13:00; Stop 08/26/16 at 08:18; Status DC Insulin Aspart 0-9 UNITS Q6HRS SQ Last administered on 09/03/16 12:25; Start 08/26/16 at 00:00 Levofloxacin/ Dextrose 100 ml @ 100 mls/hr 1X ONCE IV Last administered on 09:28; Start 08/26/16 at 09:30; Stop 08/26/16 at 10:29; Status DC Potassium Chloride/Sodium Chloride (Iv Sodium Chloride 0.45%) 1,015 ml @ 75 mls /hr 1X ONCE IV Last administered on 08/26/16 15:23; Start 08/26/16 at 11:00; Stop 08/27/16 at 00:31; Status DC Hydrocortisone Sodium Succinate 100 mg 100 mg BID IV Last administered on 08:15; Start 08/27/16 at 09:00; Stop 08/30/16 at 09:26; Status DC Amino Acids/ Electrolytes/ Dextrose 1,000 ml @ 80 mls/hr [id number] IV Last administered on 09/02/16 00:11; Start 08/27/16 at 12:30; Stop 09/02/16 at 08:13; Status DC Potassium Chloride (KCl Premix 20meq) 50 ml @ 50 mls/hr 1X ONCE IV Last administered on 08/27/16 15:29; Start 08/27/16 at 12:30; Stop 08/27/16 at 13:29; Status DC Insulin Aspart 15 units 15 units 1X ONCE SQ Last administered on 08/28/16 07: 13; Start 08/28/16 at 07:15; Stop 08/28/16 at 07:16; Status DC Propofol 100 ml @ As Directed STK-MED ONCE IV ; Start 08/29/16 at 16:23; Stop at 16:24; Status DC Propofol (Diprivan) 100 ml @ 0 mls/hr CONT PRN IV SEE I/O RECORD Last administered on 08/29/16 16:30; Start 08/29/16 at 18:00; Stop 09/02/16 at 14:32; Status DC Insulin Aspart 6 units 6 units 1X ONCE SQ Last administered on 08/30/16 08:18 ; Start 08/30/16 at 07:15; Stop 08/30/16 at 07:16; Status DC Potassium Chloride (KCl Premix 20meq) 50 ml @ 50 mls/hr Q1H IV Last administered on 08/30/16 12:00; Start 08/30/16 at 07:30; Stop 08/30/16 at 09:29; Status DC Hydrocortisone Sodium Succinate (Solu-Cortef) 50 mg BID IV Last administered on 08/31/16 09:28; Start 08/30/16 at 21:00; Stop 08/31/16 at 09:41; Status DC Insulin Aspart (Novolog) 10 units 1X ONCE SQ Last administered on 08/31/16 00: 49; Start 08/31/16 at 01:00; Stop 08/31/16 at 01:01; Status DC Hydrocortisone Sodium Succinate (Solu-Cortef) 25 mg BID IV Last administered on 09/01/16 09:27; Start 08/31/16 at 21:00; Stop 09/01/16 at 12:11; Status DC Insulin Aspart (Novolog) 10 units TIDAC SQ Last administered on 08/31/16 16:36 ; Start 08/31/16 at 11:30; Stop 09/01/16 at 08:59; Status DC Insulin Detemir 15 units 15 units DAILY10 SQ Last administered on 08/31/16 11: 59; Start 08/31/16 at 11:30; Stop 09/01/16 at 08:59; Status DC Potassium Chloride (KCl Premix 20meq) 50 ml @ 50 mls/hr Q1H IV Last administered on 08/31/16 16:32; Start 08/31/16 at 12:00; Stop 08/31/16 at 15:59; Status DC Potassium Chloride (KCl Oral Soln) 20 meq 1X ONCE PEG ; Start 08/31/16 at 15:00 ; Stop 08/31/16 at 15:00; Status DC Potassium Chloride (KCl Oral Soln) 20 meq DAILY PEG Last administered on 08:55; Start 09/01/16 at 09:00 Potassium Chloride (KCl Oral Soln) 40 meq 1X ONCE PEG Last administered on 08/31 16:32; Start 08/31/16 at 14:30; Stop 08/31/16 at 14:31; Status DC Insulin Aspart (Novolog) 10 units Q6HRS SQ Last administered on 09/02/16 00:23 ; Start 09/01/16 at 12:00; Stop 09/02/16 at 08:13; Status DC Insulin Detemir (Levemir) 20 units QHS SQ Last administered on 09/01/16 21:00; Start 09/01/16 at 21:00; Stop 09/02/16 at 08:13; Status DC Cefpodoxime Proxetil (Vantin) 100 mg BID PO Last administered on 09/03/16 08: 56; Start 09/01/16 at 10:00 Metoclopramide HCl (Reglan) 5 mg QIDACHS IV Last administered on 09/02/16 12:41 ; Start 09/01/16 at 11:30; Stop 09/02/16 at 13:11; Status DC Insulin Aspart (Novolog) 5 units Q6HRS SQ ; Start 09/02/16 at 12:00; Stop at 12:10; Status DC Insulin Detemir (Levemir) 10 units QHS SQ ; Start 09/02/16 at 21:00 Furosemide (Lasix) 40 mg 1X ONCE IVP Last administered on 09/02/16 08:47; Start 09/02/16 at 08:15; Stop 09/02/16 at 08:23; Status DC Levetiracetam (Keppra) 500 mg BID PEG Last administered on 09/03/16 08:55; Start 09/02/16 at 21:00 Pantoprazole Sodium (Protonix) 40 mg DAILYAC PO ; Start 09/03/16 at 07:30; Stop 09/03/16 at 07:30; Status DC Metoclopramide HCl (Reglan) 10 mg QIDACHS PO Last administered on 09/03/16 10: 50; Start 09/02/16 at 16:30 Levothyroxine Sodium (Synthroid) 100 mcg DAILY07 PO Last administered on 06:03; Start 09/03/16 at 07:00 Warfarin Sodium (Coumadin) 5 mg DAILY16 PO Last administered on 09/02/16 15:52 ; Start 09/02/16 at 16:00; Stop 09/03/16 at 08:31; Status DC Warfarin Sodium (Coumadin Per Pharmacy) 1 each PRN DAILY PRN MC SEE COMMENTS; Start 09/02/16 at 13:15; Stop 09/03/16 at 09:09; Status DC Lansoprazole (Prevacid) 30 mg DAILY PEG Last administered on 09/03/16 08:55; Start 09/03/16 at 09:00 Enoxaparin Sodium (Lovenox 60mg Syringe) 60 mg Q12HR SQ Last administered on t 21:48; Start 09/02/16 at 15:00; Stop 09/03/16 at 08:31; Status DC Furosemide (Lasix) 40 mg 1X ONCE IVP ; Start 09/03/16 at 10:15; Stop 09/03/16 at 10:16; Status DC Active Scripts Active Reported Milk Of Magnesia (Magnesium Hydroxide) 2,400 Mg/10 Ml Oral.susp 2,400 Mg PO DAILY PRN Dulcolax (Bisacodyl) 10 Mg Supp.rect 10 Mg RC PRN DAILY PRN Aspirin 325 Mg Tablet 1 Tab PEG DAILY Tylenol (Acetaminophen) 325 Mg Tablet 2 Tab PO PRN Q6HRS PRN Vitamin B Complex 1 Each Tablet 1 Tab PO DAILY Vitamin D3 (Cholecalciferol (Vitamin D3)) 1,000 Unit Tablet 2,000 Unit PO DAILY Keppra (Levetiracetam) 500 Mg Tablet 500 Mg PO BID Vitals/I & O Vital Sign - Last 24 Hours 09/02/16 09/02/16 09/02/16 09/02/16 14:59 16:48 20:00 20:00 Temp 99.7 99.7 Pulse 98 Resp 16 B/P 88/47 Pulse Ox 95 93 O2 Delivery Nasal Cannula Nasal Cannula Nasal Cannula Nasal Cannula O2 Flow Rate 2.0 2.0 2.0 2.0 09/02/16 09/03/16 09/03/16 09/03/16 20:05 07:20 07:24 08:00 Temp 98.6 99.3 98.6 99.3 Pulse 127 108 Resp 20 20 B/P 117/67 137/86 Pulse Ox 93 95 95 O2 Delivery Nasal Cannula Nasal Cannula Nasal Cannula Nasal Cannula O2 Flow Rate 2.0 2.0 3.0 2.0 09/03/16 09/03/16 10:35 11:34 Temp 99.1 99.1 Pulse 123 Resp 20 B/P 110/71 Pulse Ox 91 O2 Delivery Nasal Cannula Nasal Cannula O2 Flow Rate 2.0 2.0 Intake and Output 09/02/16 09/02/16 09/03/16 15:00 23:00 07:00 Intake Total 410 ml 400 ml 400 ml Output Total 700 ml 1350 ml 1125 ml Balance -290 ml -950 ml -725 ml SOLANGE ESPOSITO MD Sep 03, 2016 13:49
[2016-09-03] MEDS ORDERED: ANTI-COAG MONITOR BY PHARMACY. MC PRN (14:00)
[2016-09-03 14:56] VITALS: BP 99/55
--- NOTE | 2016-09-03 17:02 | RAD ---
EXAM: Bilateral lower extremity venous Doppler. HISTORY: Bilateral lower extremity pain/swelling. COMPARISON: None. FINDINGS: Grayscale and Doppler analysis of the both lower extremity deep venous systems was performed with graded compression and augmentation. The common femoral, greater saphenous, superficial femoral, popliteal and calf veins were assessed. There is nonocclusive thrombus within the right common femoral vein. There is also some involvement of the deep femoral vein. The remainder of the right lower extremity and left lower extremity deep venous systems are not involved. IMPRESSION: 1. Nonocclusive thrombus within the right common femoral and deep femoral veins. These findings were called to Jennifer by Oliverio Sandoval on 09/03/2016.
[2016-09-03 19:00] VITALS: BP 124/67
[2016-09-03] MEDS: INSULIN DETEMIR 300 UNITS/3 ML INSULN.PEN. SQ SCH (21:09)
[2016-09-03 23:00] VITALS: BP 114/78
[2016-09-04] VITALS (12 sets, daily range): BP systolic 72–117; BP diastolic 47–78
[2016-09-04] MEDS: INSULIN ASPART 300 UNITS/3 ML INSULN.PEN SQ SCH ×5 (00:30→23:27)
[2016-09-04] MEDS: ACETAMINOPHEN 650 MG/20.3 ML SOLUTION. PEG PRN (04:07)
[2016-09-04 05:38] LABS: BASO % 0 % (0-3); EOS % 1 % (0-3); HEMATOCRIT 21.4 % (39.0-53.0); INR 1.3 (0.8-1.1); LYMPH # 1.5 x10^3/uL (1.0-4.8); LYMPH % 12 % (24-48); MEAN CORPUSCULAR HEMOGLOBIN 34 pg (25-35); MEAN CORPUSCULAR HGB CONC 33 g/dL (31-37); MEAN CORPUSCULAR VOLUME 105 fL (79-100); MONO % 4 % (0-9); NEUT % 82 % (31-73); PLATELET COUNT 159 x10^3/uL (140-400); PROTHROMBIN TIME PATIENT 15.6 SEC (11.7-14.0); RED BLOOD COUNT 2.03 x10^6/uL (4.30-5.70); RED CELL DISTRIBUTION WIDTH 16.1 % (11.5-14.5); WHITE BLOOD COUNT 11.7 x10^3/uL (4.0-11.0)
[2016-09-04] MEDS: LEVOTHYROXINE 100 MCG TABLET PO SCH (06:42)
[2016-09-04] MEDS: METOCLOPRAMIDE HCL 10 MG/10 ML SOLUTION. PO SCH ×4 (06:42→20:45)
[2016-09-04] MEDS: IPRATRPIUM/ALBUTEROL 0.5/2.5MG 3 ML NEBU. NEB SCH ×4 (07:33→20:27)
[2016-09-04] MEDS: LEVETIRACETAM 500 MG/5 ML SOLUTION PEG SCH ×2 (08:34→20:45)
[2016-09-04] MEDS: LANSOPRAZOLE 30 MG TAB.RAP.DR PEG SCH (08:34)
[2016-09-04] MEDS: ASPIRIN 325 MG TABLET PEG SCH (08:34)
[2016-09-04] MEDS: VITAMIN B COMPLEX TABLET. PO SCH (08:34)
[2016-09-04] MEDS: POTASSIUM CHLORIDE 20 MEQ/15 ML ORAL LIQUID. PEG SCH (08:35)
[2016-09-04] MEDS: CEFPODOXIME PROXETIL 100 MG TABLET PO SCH ×2 (08:35→20:45)
[2016-09-04] MEDS: CHOLECALCIFEROL (VITAMIN D3) 1,000 UNIT TABLET PO SCH (08:35)
--- NOTE | 2016-09-04 12:36 | PDOC ---
Infectious Disease Note Subjective Subjective Sleepy Fever 102.4 earlier this morning ROS ROS Unobtainable Vital Sign Vital Signs Vital Signs Date Time Temp Pulse Resp B/P Pulse Ox O2 Delivery O2 Flow Rate FiO2 09/04/16 11:12 96 Nasal Cannula 3.0 09/04/16 10:26 97.5 106 20 101/67 97.5 Physical Exam PHYSICAL EXAM GENERAL: Nonverbal, NAD HEENT: Oral cavity dry. Missing teeth & decay LUNGS: Mild congestion, nonlabored HEART: S1S2 ABD: Soft, No grimace to palpation. PEG : Bowling EXT: No gross edema, no cyanosis [employer]: Sleepy, decrease attention span, no follow commands SKIN: Dry IV: ok Labs Lab Laboratory Tests Test 09/03/16 16:52 09/03/16 21:04 09/04/16 00:26 09/04/16 04:36 Glucose (Fingerstick) 204mg/dL (70-99) 214mg/dL (70-99) 231mg/dL (70-99) White Blood Count 11.7x10^3/uL (4.0-11.0) Red Blood Count 2.03x10^6/uL (4.30-5.70) Hemoglobin 7.0g/dL (13.0-17.5) Hematocrit 21.4% (39.0-53.0) Mean Corpuscular Volume 105fL (79-100) Mean Corpuscular Hemoglobin 34pg (25-35) Mean Corpuscular Hemoglobin Concent 33g/dL (31-37) Red Cell Distribution Width 16.1% (11.5-14.5) Platelet Count 159x10^3/uL (140-400) Neutrophils (%) (Auto) 82% (31-73) Lymphocytes (%) (Auto) 12% (24-48) Monocytes (%) (Auto) 4% (0-9) Eosinophils (%) (Auto) 1% (0-3) Basophils (%) (Auto) 0% (0-3) Neutrophils # (Auto) 9.6x10^3uL (1.8-7.7) Lymphocytes # (Auto) 1.5x10^3/uL (1.0-4.8) Monocytes # (Auto) 0.5x10^3/uL (0.0-1.1) Eosinophils # (Auto) 0.1x10^3/uL (0.0-0.7) Basophils # (Auto) 0.0x10^3/uL (0.0-0.2) Prothrombin Time 15.6SEC (11.7-14.0) Prothromb Time International Ratio 1.3 (0.8-1.1) Test 09/04/16 06:10 09/04/16 11:32 Glucose (Fingerstick) 205mg/dL (70-99) 153mg/dL (70-99) IMPRESSION: 1. Nonocclusive thrombus within the right common femoral and deep femoral veins. IMPRESSION: 1. Deep venous thrombosis adjacent to a PICC line within the left brachial and axillary veins. Micro BLOOD CULTURE Preliminary NO GROWTH AFTER 2 DAYS Objective Assessment Fever ? DVT rLeft brachial and Nonocclusive Right Common femoral +/- GI bleed Leukocytosis, improving Severe Sepsis - improved Hyperglycemia -improved Hydronephrosis on U/S - May need nephrostomy tubes per urology Acute Resp failure sp extubation Lactic acidosis MAHAD with h/o hydronephrosis -better Bandemia/leukocytosis - on Hydrocortisone Hematuria - improved UTI - Proteus H/o granulomas GI bleed Plan Plan of Care Cont po Vantin Blood transfusion underway Attending Co-Sign Attending Co-Sign The patient was seen and interviewed as well as examined at the bedside. The chart was reviewed. The case was discussed. Agree with the plan of care. JESSI AGOSTO APRN Sep 04, 2016 12:36 ANETA SAINZ MD Sep 04, 2016 14:38
--- NOTE | 2016-09-04 12:41 | PDOC ---
PULMONARY PROGRESS NOTES Subjective extubated 08/30 no soa still with fever Vitals Vital Signs Date Time Temp Pulse Resp B/P Pulse Ox O2 Delivery O2 Flow Rate FiO2 09/04/16 11:12 96 Nasal Cannula 3.0 09/04/16 10:26 97.5 106 20 101/67 97.5 General: No acute distress Lungs: Clear Cardiovascular: S1, S2 Abdomen: Soft Extremities: Other (swelling left upper, lower extremity edema) Skin: Warm Labs Laboratory Tests Test 09/02/16 13:41 09/02/16 16:53 09/02/16 20:56 09/03/16 00:01 Prothrombin Time 15.5SEC (11.7-14.0) Prothromb Time International Ratio 1.3 (0.8-1.1) Glucose (Fingerstick) 90mg/dL (70-99) 185mg/dL (70-99) 238mg/dL (70-99) Test 09/03/16 04:25 09/03/16 06:05 09/03/16 09:20 09/03/16 11:46 White Blood Count 12.1x10^3/uL (4.0-11.0) Red Blood Count 2.29x10^6/uL (4.30-5.70) Hemoglobin 7.9g/dL (13.0-17.5) Hematocrit 24.7% (39.0-53.0) Mean Corpuscular Volume 108fL (79-100) Mean Corpuscular Hemoglobin 35pg (25-35) Mean Corpuscular Hemoglobin Concent 32g/dL (31-37) Red Cell Distribution Width 15.4% (11.5-14.5) Platelet Count 118x10^3/uL (140-400) Neutrophils (%) (Auto) 85% (31-73) Lymphocytes (%) (Auto) 10% (24-48) Monocytes (%) (Auto) 3% (0-9) Eosinophils (%) (Auto) 2% (0-3) Basophils (%) (Auto) 0% (0-3) Neutrophils # (Auto) 10.3x10^3uL (1.8-7.7) Lymphocytes # (Auto) 1.2x10^3/uL (1.0-4.8) Monocytes # (Auto) 0.4x10^3/uL (0.0-1.1) Eosinophils # (Auto) 0.2x10^3/uL (0.0-0.7) Basophils # (Auto) 0.0x10^3/uL (0.0-0.2) Prothrombin Time 17.2SEC (11.7-14.0) Prothromb Time International Ratio 1.5 (0.8-1.1) Sodium Level 144mmol/L (136-145) Potassium Level 3.6mmol/L (3.5-5.1) Chloride Level 106mmol/L (98-107) Carbon Dioxide Level 33mmol/L (21-32) Anion Gap 5 (6-14) Blood Urea Nitrogen 20mg/dL (8-26) Creatinine 0.9mg/dL (0.7-1.3) Estimated GFR (Cockcroft-Gault) 106.0 Glucose Level 204mg/dL (70-99) Calcium Level 7.2mg/dL (8.5-10.1) Glucose (Fingerstick) 213mg/dL (70-99) 271mg/dL (70-99) Stool Occult Blood Positive (NEG) Test 09/03/16 16:52 09/03/16 21:04 09/04/16 00:26 09/04/16 04:36 Glucose (Fingerstick) 204mg/dL (70-99) 214mg/dL (70-99) 231mg/dL (70-99) White Blood Count 11.7x10^3/uL (4.0-11.0) Red Blood Count 2.03x10^6/uL (4.30-5.70) Hemoglobin 7.0g/dL (13.0-17.5) Hematocrit 21.4% (39.0-53.0) Mean Corpuscular Volume 105fL (79-100) Mean Corpuscular Hemoglobin 34pg (25-35) Mean Corpuscular Hemoglobin Concent 33g/dL (31-37) Red Cell Distribution Width 16.1% (11.5-14.5) Platelet Count 159x10^3/uL (140-400) Neutrophils (%) (Auto) 82% (31-73) Lymphocytes (%) (Auto) 12% (24-48) Monocytes (%) (Auto) 4% (0-9) Eosinophils (%) (Auto) 1% (0-3) Basophils (%) (Auto) 0% (0-3) Neutrophils # (Auto) 9.6x10^3uL (1.8-7.7) Lymphocytes # (Auto) 1.5x10^3/uL (1.0-4.8) Monocytes # (Auto) 0.5x10^3/uL (0.0-1.1) Eosinophils # (Auto) 0.1x10^3/uL (0.0-0.7) Basophils # (Auto) 0.0x10^3/uL (0.0-0.2) Prothrombin Time 15.6SEC (11.7-14.0) Prothromb Time International Ratio 1.3 (0.8-1.1) Test 09/04/16 06:10 09/04/16 11:32 Glucose (Fingerstick) 205mg/dL (70-99) 153mg/dL (70-99) Laboratory Tests Test 09/03/16 16:52 09/03/16 21:04 09/04/16 00:26 09/04/16 04:36 Glucose (Fingerstick) 204mg/dL (70-99) 214mg/dL (70-99) 231mg/dL (70-99) White Blood Count 11.7x10^3/uL (4.0-11.0) Red Blood Count 2.03x10^6/uL (4.30-5.70) Hemoglobin 7.0g/dL (13.0-17.5) Hematocrit 21.4% (39.0-53.0) Mean Corpuscular Volume 105fL (79-100) Mean Corpuscular Hemoglobin 34pg (25-35) Mean Corpuscular Hemoglobin Concent 33g/dL (31-37) Red Cell Distribution Width 16.1% (11.5-14.5) Platelet Count 159x10^3/uL (140-400) Neutrophils (%) (Auto) 82% (31-73) Lymphocytes (%) (Auto) 12% (24-48) Monocytes (%) (Auto) 4% (0-9) Eosinophils (%) (Auto) 1% (0-3) Basophils (%) (Auto) 0% (0-3) Neutrophils # (Auto) 9.6x10^3uL (1.8-7.7) Lymphocytes # (Auto) 1.5x10^3/uL (1.0-4.8) Monocytes # (Auto) 0.5x10^3/uL (0.0-1.1) Eosinophils # (Auto) 0.1x10^3/uL (0.0-0.7) Basophils # (Auto) 0.0x10^3/uL (0.0-0.2) Prothrombin Time 15.6SEC (11.7-14.0) Prothromb Time International Ratio 1.3 (0.8-1.1) Test 09/04/16 06:10 09/04/16 11:32 Glucose (Fingerstick) 205mg/dL (70-99) 153mg/dL (70-99) Medications Active Scripts Medications Dose Route/Sig Days Date Category Milk Of Magnesia (Magnesium Hydroxide) 2,400 Mg/10 Ml Oral.susp 2,400 Mg PO DAILY PRN 08/21/15 Reported Dulcolax (Bisacodyl) 10 Mg Supp.rect 10 Mg RC PRN DAILY PRN 08/21/15 Reported Aspirin 325 Mg Tablet 1 Tab PEG DAILY 08/02/15 Reported Tylenol (Acetaminophen) 325 Mg Tablet 2 Tab PO PRN Q6HRS PRN 08/02/15 Reported Vitamin B Complex 1 Each Tablet 1 Tab PO DAILY 07/25/15 Reported Vitamin D3 (Cholecalciferol (Vitamin D3)) 1,000 Unit Tablet 2,000 Unit PO DAILY 07/25/15 Reported Keppra (Levetiracetam) 500 Mg Tablet 500 Mg PO BID 07/25/15 Reported Impression . 1. Acute hypoxic respiratory failure secondary septic shock, resolved, extubated 08/30 2. Septic shock cultures so far negative, resolved 3. Persistent abnormal chest x-ray with bilateral infiltrate 4. Acute severe metabolic acidosis with severe lactic acidosis secondary to sepsis/septic shock. MAHAD contributing to metabolic acidosis, improved 5. Hematuria 6. Urinary tract infection. 7. Coagulopathy, most likely related to early disseminated intravascular coagulation. 8. Underlying Down's syndrome 9. Dysphagia S/P PEG 10. New fever, ID following, left upper DVT 11. left upper DVT (brachial and axillary) due to PICC, non-occlusive Right lower extremity DVT 12. GI bleed Plan . nasal canula coumadin on hold per PCP due to GI bleed/ GI following. Not the best candidate for OP AC. PICC removed IVC filter ordered by PCP. I agree TF OFF steroids give extra lasix follow ID recommendations regarding new fever SADA CORTEZ MD Sep 04, 2016 12:41
--- NOTE | 2016-09-04 13:54 | PDOC ---
PROGRESS NOTES Chief Complaint Chief Complaint Resp failure - was intubated, breathing werll 1. Severe Sepsis, pneumonia 2. PNA, bed bound, , aspiration 3. Bed bound, non verbal, hx down's, and hx CVA 4. Dysphagia, indwelling PEG 5 MAHAD, vasomotor, now recovery phase with marked (critical) hypokalemia, 6. Gap metabolic acidosis, recent vomiting, severe sepsis 7. hypothyroidism 8. down syndrome 9. possible gastroparesis 10. h/o CVA 11. LEFT arm dvt with PICC. 12. rectal bleeding with ac on 09/02 13. anemia, 2/2 chronic dz and rectal bleeding plan: 1. fu with pulm, id, GI 2. slowly PEG feeding with 9, KUB ruled out obstruction 3. change iv abx to po as per ID 4. on NC 2 L 4. dc aspart, cont levemir, decrease to 10u qhs, dc PPN, lasix 40mg ivx1 dc lovenox, warfarin, given rectal bleeding, cont asa for now. not a good candidate for AC. need IVC filter, IR consult dced steroid 1 u PRBC transfusion 09/04 BP better with transfusion still fever, could 2/2 DVT. PAT consult again on Tuesday History of Present Illness History of Present Illness code status changed to DNR on on this admit NON VERbal PEG feeding, chronic, at goal 50cc/h hyperglycemia gets low wo steroid fever again on 09/02, high wbc, tachycardia rectal bleeding on 09/03 with asa, lovenox and warfarin only one day on 09/02 + dvt with left arm PICC , removed line low BP 09/04 Vitals Vitals Vital Signs Date Time Temp Pulse Resp B/P Pulse Ox O2 Delivery O2 Flow Rate FiO2 09/04/16 11:12 96 Nasal Cannula 3.0 09/04/16 10:26 97.5 106 20 101/67 97.5 Physical Exam Physical Exam no follow commands or talk as baseline General: Alert, No acute distress, Other ( awake, ) Heart: Regular rate, No murmurs Lungs: Clear Abdomen: Normal bowel sounds, Soft, No tenderness Extremities: No clubbing Skin: No breakdown, No significant lesion Labs LABS Laboratory Tests Test 09/03/16 16:52 09/03/16 21:04 09/04/16 00:26 09/04/16 04:36 Glucose (Fingerstick) 204mg/dL (70-99) 214mg/dL (70-99) 231mg/dL (70-99) White Blood Count 11.7x10^3/uL (4.0-11.0) Red Blood Count 2.03x10^6/uL (4.30-5.70) Hemoglobin 7.0g/dL (13.0-17.5) Hematocrit 21.4% (39.0-53.0) Mean Corpuscular Volume 105fL (79-100) Mean Corpuscular Hemoglobin 34pg (25-35) Mean Corpuscular Hemoglobin Concent 33g/dL (31-37) Red Cell Distribution Width 16.1% (11.5-14.5) Platelet Count 159x10^3/uL (140-400) Neutrophils (%) (Auto) 82% (31-73) Lymphocytes (%) (Auto) 12% (24-48) Monocytes (%) (Auto) 4% (0-9) Eosinophils (%) (Auto) 1% (0-3) Basophils (%) (Auto) 0% (0-3) Neutrophils # (Auto) 9.6x10^3uL (1.8-7.7) Lymphocytes # (Auto) 1.5x10^3/uL (1.0-4.8) Monocytes # (Auto) 0.5x10^3/uL (0.0-1.1) Eosinophils # (Auto) 0.1x10^3/uL (0.0-0.7) Basophils # (Auto) 0.0x10^3/uL (0.0-0.2) Prothrombin Time 15.6SEC (11.7-14.0) Prothromb Time International Ratio 1.3 (0.8-1.1) Test 09/04/16 06:10 09/04/16 11:32 Glucose (Fingerstick) 205mg/dL (70-99) 153mg/dL (70-99) Review of Systems Review of Systems no chills, chest pain Assessment and Plan Assessmemt and Plan Problems Medical Problems: (1) HAP (hospital-acquired pneumonia) Status: Acute (2) Pneumonia Status: Acute Problems: Comment Review of Relevant I have reviewed the following items kassie (where applicable) has been applied. Labs Laboratory Tests Test 09/02/16 16:53 09/02/16 20:56 09/03/16 00:01 09/03/16 04:25 Glucose (Fingerstick) 90mg/dL (70-99) 185mg/dL (70-99) 238mg/dL (70-99) White Blood Count 12.1x10^3/uL (4.0-11.0) Red Blood Count 2.29x10^6/uL (4.30-5.70) Hemoglobin 7.9g/dL (13.0-17.5) Hematocrit 24.7% (39.0-53.0) Mean Corpuscular Volume 108fL (79-100) Mean Corpuscular Hemoglobin 35pg (25-35) Mean Corpuscular Hemoglobin Concent 32g/dL (31-37) Red Cell Distribution Width 15.4% (11.5-14.5) Platelet Count 118x10^3/uL (140-400) Neutrophils (%) (Auto) 85% (31-73) Lymphocytes (%) (Auto) 10% (24-48) Monocytes (%) (Auto) 3% (0-9) Eosinophils (%) (Auto) 2% (0-3) Basophils (%) (Auto) 0% (0-3) Neutrophils # (Auto) 10.3x10^3uL (1.8-7.7) Lymphocytes # (Auto) 1.2x10^3/uL (1.0-4.8) Monocytes # (Auto) 0.4x10^3/uL (0.0-1.1) Eosinophils # (Auto) 0.2x10^3/uL (0.0-0.7) Basophils # (Auto) 0.0x10^3/uL (0.0-0.2) Prothrombin Time 17.2SEC (11.7-14.0) Prothromb Time International Ratio 1.5 (0.8-1.1) Sodium Level 144mmol/L (136-145) Potassium Level 3.6mmol/L (3.5-5.1) Chloride Level 106mmol/L (98-107) Carbon Dioxide Level 33mmol/L (21-32) Anion Gap 5 (6-14) Blood Urea Nitrogen 20mg/dL (8-26) Creatinine 0.9mg/dL (0.7-1.3) Estimated GFR (Cockcroft-Gault) 106.0 Glucose Level 204mg/dL (70-99) Calcium Level 7.2mg/dL (8.5-10.1) Test 09/03/16 06:05 09/03/16 09:20 09/03/16 11:46 09/03/16 16:52 Glucose (Fingerstick) 213mg/dL (70-99) 271mg/dL (70-99) 204mg/dL (70-99) Stool Occult Blood Positive (NEG) Test 09/03/16 21:04 09/04/16 00:26 09/04/16 04:36 09/04/16 06:10 Glucose (Fingerstick) 214mg/dL (70-99) 231mg/dL (70-99) 205mg/dL (70-99) White Blood Count 11.7x10^3/uL (4.0-11.0) Red Blood Count 2.03x10^6/uL (4.30-5.70) Hemoglobin 7.0g/dL (13.0-17.5) Hematocrit 21.4% (39.0-53.0) Mean Corpuscular Volume 105fL (79-100) Mean Corpuscular Hemoglobin 34pg (25-35) Mean Corpuscular Hemoglobin Concent 33g/dL (31-37) Red Cell Distribution Width 16.1% (11.5-14.5) Platelet Count 159x10^3/uL (140-400) Neutrophils (%) (Auto) 82% (31-73) Lymphocytes (%) (Auto) 12% (24-48) Monocytes (%) (Auto) 4% (0-9) Eosinophils (%) (Auto) 1% (0-3) Basophils (%) (Auto) 0% (0-3) Neutrophils # (Auto) 9.6x10^3uL (1.8-7.7) Lymphocytes # (Auto) 1.5x10^3/uL (1.0-4.8) Monocytes # (Auto) 0.5x10^3/uL (0.0-1.1) Eosinophils # (Auto) 0.1x10^3/uL (0.0-0.7) Basophils # (Auto) 0.0x10^3/uL (0.0-0.2) Prothrombin Time 15.6SEC (11.7-14.0) Prothromb Time International Ratio 1.3 (0.8-1.1) Test 09/04/16 11:32 Glucose (Fingerstick) 153mg/dL (70-99) Laboratory Tests Test 09/03/16 16:52 09/03/16 21:04 09/04/16 00:26 09/04/16 04:36 Glucose (Fingerstick) 204mg/dL (70-99) 214mg/dL (70-99) 231mg/dL (70-99) White Blood Count 11.7x10^3/uL (4.0-11.0) Red Blood Count 2.03x10^6/uL (4.30-5.70) Hemoglobin 7.0g/dL (13.0-17.5) Hematocrit 21.4% (39.0-53.0) Mean Corpuscular Volume 105fL (79-100) Mean Corpuscular Hemoglobin 34pg (25-35) Mean Corpuscular Hemoglobin Concent 33g/dL (31-37) Red Cell Distribution Width 16.1% (11.5-14.5) Platelet Count 159x10^3/uL (140-400) Neutrophils (%) (Auto) 82% (31-73) Lymphocytes (%) (Auto) 12% (24-48) Monocytes (%) (Auto) 4% (0-9) Eosinophils (%) (Auto) 1% (0-3) Basophils (%) (Auto) 0% (0-3) Neutrophils # (Auto) 9.6x10^3uL (1.8-7.7) Lymphocytes # (Auto) 1.5x10^3/uL (1.0-4.8) Monocytes # (Auto) 0.5x10^3/uL (0.0-1.1) Eosinophils # (Auto) 0.1x10^3/uL (0.0-0.7) Basophils # (Auto) 0.0x10^3/uL (0.0-0.2) Prothrombin Time 15.6SEC (11.7-14.0) Prothromb Time International Ratio 1.3 (0.8-1.1) Test 09/04/16 06:10 09/04/16 11:32 Glucose (Fingerstick) 205mg/dL (70-99) 153mg/dL (70-99) Microbiology 09/02/16 Blood Culture - Preliminary, Resulted NO GROWTH AFTER 2 DAYS 08/23/16 Urine Culture - Final, Complete 08/23/16 Urine Culture Result 1 (SHANON) - Final, Complete 08/23/16 Antimicrobic Susceptibility - Final, Complete Medications Current Medications Sodium Chloride 1,000 ml @ 1,000 mls/hr 1X ONCE IV Last administered on 11:16; Start 08/23/16 at 11:15; Stop 08/23/16 at 12:14; Status DC Sodium Chloride (Iv Sodium Chloride 0.9% 1000ml Bag) 1,000 ml @ 1,000 mls/hr 1X ONCE IV Last administered on 08/23/16 11:30; Start 08/23/16 at 11:30; Stop 08/23/16 at 12:29; Status DC Vancomycin HCl (Vanco Per Pharmacy) 1 each PRN DAILY PRN MC SEE COMMENTS Last administered on 08/25/16 13:04; Start 08/23/16 at 11:30; Stop 08/26/16 at 08:18; Status DC Piperacillin Sod/ Tazobactam Sod 1 each 1 each PRN DAILY PRN MC SEE COMMENTS; Start 08/23/16 at 11:30; Stop 08/25/16 at 09:54; Status DC Levofloxacin/ Dextrose 100 ml @ 100 mls/hr 1X ONCE IV Last administered on 12:58; Start 08/23/16 at 11:30; Stop 08/23/16 at 12:29; Status DC Piperacillin Sod/ Tazobactam Sod 4.5 gm/Sodium Chloride 100 ml @ 200 mls/hr 1X ONCE IV Last administered on 08/23/16 12:00; Start 08/23/16 at 12:00; Stop 08/23/16 at 12:29; Status DC Vancomycin HCl 1.5 gm/Sodium Chloride 500 ml @ 250 mls/hr 1X ONCE IV Last administered on 08/23/16 12:30; Start 08/23/16 at 12:30; Stop 08/23/16 at 14:29 ; Status DC Sodium Chloride 1,000 ml @ 1,000 mls/hr 1X ONCE IV Last administered on 12:46; Start 08/23/16 at 12:30; Stop 08/23/16 at 13:29; Status DC Piperacillin Sod/ Tazobactam Sod 3.375 gm/Sodium Chloride 50 ml @ 100 mls/hr Q6HRS IV Last administered on 09/01/16 05:29; Start 08/23/16 at 18:00; Stop 09/01/16 at 09:08; Status DC Vancomycin HCl/ Sodium Chloride (Iv Sodium Chloride 0.9% 250ml) 250 ml @ 250 mls/hr Q24H IV ; Start 08/24/16 at 13:00; Status Cancel Vancomycin HCl 1 each 1X ONCE MC ; Start 08/25/16 at 12:30; Stop 08/25/16 at 12: 31; Status DC Labetalol HCl (Normodyne) 10 mg PRN Q2HR PRN IVP HYPERTENSION, SEE COMMENTS; Start 08/23/16 at 15:45 Aspirin ([place]speed Aspirin) 325 mg DAILY PEG Last administered on 09/04/16 08:34; Start 08/24/16 at 09:00 Bisacodyl (Dulcolax Supp) 10 mg PRN DAILY PRN RC CONSTIPATION Last administered on 08/29/16 15:48; Start 08/23/16 at 15:45 Vitamin D (Vitamin D3) 2,000 unit DAILY PO Last administered on 09/04/16 08:35 ; Start 08/24/16 at 09:00 Levetiracetam (Keppra) 500 mg BID PO ; Start 08/23/16 at 21:00; Stop 08/23/16 at 21:00; Status DC Vitamin B Complex (Hector B) 1 tab DAILY PO Last administered on 09/04/16 08:34 ; Start 08/24/16 at 09:00 Magnesium Hydroxide (Milk Of Magnesia) 2,400 mg PRN DAILY PRN PO CONSTIPATION; Start 08/23/16 at 15:45 Acetaminophen 500 mg 500 mg PRN Q6HRS PRN PO MILD PAIN / TEMP; Start 08/23/16 at 15:45 Levetiracetam/ Sodium Chloride (Keppra/Iv Sodium Chloride 0.9% 100ml) 105 ml @ 400 mls/hr Q12HR IV Last administered on 09/02/16 08:49; Start 08/23/16 at 21: 00; Stop 09/02/16 at 13:11; Status DC Pantoprazole Sodium (Protonix Vial) 40 mg DAILYAC IVP Last administered on 08:36; Start 08/24/16 at 07:30; Stop 09/02/16 at 13:11; Status DC Heparin Sodium (Porcine) 5000 unit 5,000 unit Q8HRS SQ ; Start 08/23/16 at 22:00 ; Stop 08/23/16 at 22:00; Status DC Sodium Bicarbonate/ Dextrose 1,150 ml @ 150 mls/hr Q7H40M IV Last administered on 08/25/16 08:05; Start 08/23/16 at 16:30; Stop 08/25/16 at 10:35; Status DC Sodium Bicarbonate 50 meq 1X ONCE IV Last administered on 08/23/16 16:24; Start 08/23/16 at 16:15; Stop 08/23/16 at 16:17; Status DC Albuterol/ Ipratropium 3 ml 3 ml RTQID NEB Last administered on 09/04/16 11:10 ; Start 08/23/16 at 20:00 Vancomycin HCl 750 mg/Sodium Chloride 250 ml @ 250 mls/hr Q24H IV Last administered on 08/24/16 12:15; Start 08/24/16 at 13:00; Stop 08/25/16 at 12:55 ; Status DC Norepinephrine Bitartrate 8 mg/ Sodium Chloride 258 ml @ 0 mls/hr CONT PRN IV SEE I/O RECORD Last administered on 08/25/16 00:28; Start 08/23/16 at 18:15; Stop 09/01/16 at 09:01; Status DC Sodium Chloride (Iv Sodium Chloride 0.9% 1000ml Bag) 1,000 ml @ 500 mls/hr Q2H IV Last administered on 08/23/16 17:00; Start 08/23/16 at 18:30; Stop at 20:29; Status DC Hydrocortisone Sodium Succinate (Solu-Cortef) 100 mg Q8HRS IV Last administered on 3/2/17at 14:54; Start 08/23/16 at 22:30; Stop 08/26/16 at 16:49; Status DC Succinylcholine Chloride (Anectine) 200 mg STK-MED ONCE .ROUTE ; Start 08/24/16 at 04:15; Stop 08/24/16 at 04:16; Status DC Etomidate 20 mg 20 mg STK-MED ONCE IV ; Start 08/24/16 at 04:15; Stop 08/24/16 at 04:16; Status DC Fentanyl Citrate (Fentanyl 600 Mcg/30 ml [employer]IL ASSEM[employer]ER) 30 ml @ 0 mls/hr CONT PRN IV PROTOCOL Last administered on 08/30/16 04:54; Start 08/24/16 at 04:45; Stop 04/12 at 08:03; Status DC Fentanyl Citrate (Fentanyl 2ml Vial) 25 mcg PRN Q1HR PRN IV COMM Last administered on 08/29/16 07:44; Start 08/24/16 at 04:45; Stop 08/30/16 at 16:51; Status DC Fentanyl Citrate (Fentanyl 2ml Vial) 50 mcg PRN Q1HR PRN IV COMM; Start at 04:45; Status Cancel Chlorhexidine Gluconate 15 ml 15 ml BID MM Last administered on 08/30/16 08:15 ; Start 08/24/16 at 09:00; Stop 08/30/16 at 22:16; Status DC Midazolam HCl 100 ml @ 0 mls/hr CONT PRN IV PER PROTOCOL Last administered on 10:50; Start 08/24/16 at 04:45; Stop 09/01/16 at 09:02; Status DC Midazolam HCl 100 ml @ As Directed STK-MED ONCE IV ; Start 08/24/16 at 04:52; Stop 08/24/16 at 04:53; Status DC Sodium Chloride 1,000 ml @ 150 mls/hr Q6H40M IV Last administered on 06:13; Start 08/24/16 at 05:45; Stop 08/24/16 at 09:59; Status DC Vasopressin 40 unit/Dextrose 102 ml @ 6 mls/hr 1X ONCE IV Last administered on 08/24/16 06:12; Start 08/24/16 at 06:00; Stop 08/24/16 at 20:00; Status DC Phenylephrine HCl 20 mg/Sodium Chloride 252 ml @ 0 mls/hr CONT PRN IV SEE I/O RECORD Last administered on 08/24/16 07:28; Start 08/24/16 at 05:45; Stop 09/03 at 08:03; Status DC Albumin Human 500 ml @ 125 mls/hr 1X ONCE IV Last administered on 08/24/16 06:20; Start 08/24/16 at 05:45; Stop 08/24/16 at 09:44; Status DC Micafungin Sodium 100 mg/Dextrose 100 ml @ 100 mls/hr Q24H IV Last administered on 08/26/16 09:29; Start 08/24/16 at 09:00; Stop 08/27/16 at 07:37; Status DC Epinephrine HCl/ Sodium Chloride (Adrenalin/Iv Sodium Chloride 0.9% 250ml) 254 ml @ 0 mls/hr CONT PRN IV SEE I/O RECORD; Start 08/24/16 at 07:30; Status Cancel Epinephrine HCl (Adrenalin) 30 mg STK-MED ONCE .ROUTE ; Start 08/23/16 at 12:00 ; Stop 08/24/16 at 10:38; Status DC Epinephrine HCl 4 mg STK-MED ONCE .ROUTE ; Start 08/23/16 at 12:00; Stop at 10:38; Status DC Sodium Bicarbonate 100 meq 100 meq STK-MED ONCE .ROUTE ; Start 08/23/16 at 12:00 ; Stop 08/24/16 at 10:38; Status DC Levothyroxine Sodium 50 mcg/ Sodium Chloride 5 ml @ 100 mls/hr DAILY IVP Last administered on 09/02/16 08:50; Start 08/24/16 at 15:00; Stop 09/02/16 at 13:11; Status DC Phytonadione 10 mg/Sodium Chloride 51 ml @ 102 mls/hr 1X ONCE IV Last administered on 08/24/16 15:14; Start 08/24/16 at 14:30; Stop 08/24/16 at 14:59 ; Status DC Vasopressin/ Dextrose (Vasostrict) 102 ml @ 6 mls/hr CONT PRN IV SEE I/O RECORD Last administered on 08/26/16 05:44; Start 08/24/16 at 18:15; Stop at 18:47; Status DC Acetaminophen 650 mg 650 mg PRN Q6HRS PRN PEG MILD PAIN / TEMP Last administered on 09/04/16 04:07; Start 08/24/16 at 20:45 Levofloxacin/ Dextrose (LEVAQUIN 500mg PREMIX) 100 ml @ 100 mls/hr 1X ONCE IV Last administered on 08/25/16 08:06; Start 08/25/16 at 08:00; Stop 08/25/16 at 08:59; Status DC Insulin Aspart (Novolog) 0-9 UNITS TIDWMEALS SQ Last administered on 08/25/16 17:23; Start 08/25/16 at 08:00; Stop 08/25/16 at 19:32; Status DC Dextrose 12.5 gm PRN Q15MIN PRN IV SEE COMMENTS Last administered on 09/02/16 06:08; Start 08/25/16 at 07:30 Insulin Aspart 10 units 10 units 1X ONCE SQ Last administered on 08/25/16 08: 08; Start 08/25/16 at 08:00; Stop 08/25/16 at 08:01; Status DC Sodium Chloride 1,000 ml @ 50 mls/hr Q20H IV Last administered on 08/31/16 07: 36; Start 08/25/16 at 11:00; Stop 08/31/16 at 18:09; Status DC Potassium Chloride/Sodium Chloride (Iv Sodium Chloride 0.45%) 1,015 ml @ 75 mls /hr 1X ONCE IV Last administered on 08/25/16 10:55; Start 08/25/16 at 11:00; Stop 08/26/16 at 00:31; Status DC Insulin Aspart 10 units 10 units 1X ONCE SQ Last administered on 08/25/16 12: 42; Start 08/25/16 at 12:45; Stop 08/25/16 at 12:46; Status DC Vancomycin HCl/ Sodium Chloride (Iv Sodium Chloride 0.9% 250ml) 250 ml @ 250 mls/hr Q18H IV Last administered on 08/26/16 06:39; Start 08/25/16 at 13:00; Stop 08/26/16 at 08:18; Status DC Insulin Aspart 0-9 UNITS Q6HRS SQ Last administered on 09/04/16 06:46; Start 08/26/16 at 00:00 Levofloxacin/ Dextrose 100 ml @ 100 mls/hr 1X ONCE IV Last administered on 09:28; Start 08/26/16 at 09:30; Stop 08/26/16 at 10:29; Status DC Potassium Chloride/Sodium Chloride (Iv Sodium Chloride 0.45%) 1,015 ml @ 75 mls /hr 1X ONCE IV Last administered on 08/26/16 15:23; Start 08/26/16 at 11:00; Stop 08/27/16 at 00:31; Status DC Hydrocortisone Sodium Succinate 100 mg 100 mg BID IV Last administered on 08:15; Start 08/27/16 at 09:00; Stop 08/30/16 at 09:26; Status DC Amino Acids/ Electrolytes/ Dextrose 1,000 ml @ 80 mls/hr [id number] IV Last administered on 09/02/16 00:11; Start 08/27/16 at 12:30; Stop 09/02/16 at 08:13; Status DC Potassium Chloride (KCl Premix 20meq) 50 ml @ 50 mls/hr 1X ONCE IV Last administered on 08/27/16 15:29; Start 08/27/16 at 12:30; Stop 08/27/16 at 13:29; Status DC Insulin Aspart 15 units 15 units 1X ONCE SQ Last administered on 08/28/16 07: 13; Start 08/28/16 at 07:15; Stop 08/28/16 at 07:16; Status DC Propofol 100 ml @ As Directed STK-MED ONCE IV ; Start 08/29/16 at 16:23; Stop at 16:24; Status DC Propofol (Diprivan) 100 ml @ 0 mls/hr CONT PRN IV SEE I/O RECORD Last administered on 08/29/16 16:30; Start 08/29/16 at 18:00; Stop 09/02/16 at 14:32; Status DC Insulin Aspart 6 units 6 units 1X ONCE SQ Last administered on 08/30/16 08:18 ; Start 08/30/16 at 07:15; Stop 08/30/16 at 07:16; Status DC Potassium Chloride (KCl Premix 20meq) 50 ml @ 50 mls/hr Q1H IV Last administered on 08/30/16 12:00; Start 08/30/16 at 07:30; Stop 08/30/16 at 09:29; Status DC Hydrocortisone Sodium Succinate (Solu-Cortef) 50 mg BID IV Last administered on 08/31/16 09:28; Start 08/30/16 at 21:00; Stop 08/31/16 at 09:41; Status DC Insulin Aspart (Novolog) 10 units 1X ONCE SQ Last administered on 08/31/16 00: 49; Start 08/31/16 at 01:00; Stop 08/31/16 at 01:01; Status DC Hydrocortisone Sodium Succinate (Solu-Cortef) 25 mg BID IV Last administered on 09/01/16 09:27; Start 08/31/16 at 21:00; Stop 09/01/16 at 12:11; Status DC Insulin Aspart (Novolog) 10 units TIDAC SQ Last administered on 08/31/16 16:36 ; Start 08/31/16 at 11:30; Stop 09/01/16 at 08:59; Status DC Insulin Detemir 15 units 15 units DAILY10 SQ Last administered on 08/31/16 11: 59; Start 08/31/16 at 11:30; Stop 09/01/16 at 08:59; Status DC Potassium Chloride (KCl Premix 20meq) 50 ml @ 50 mls/hr Q1H IV Last administered on 08/31/16 16:32; Start 08/31/16 at 12:00; Stop 08/31/16 at 15:59; Status DC Potassium Chloride (KCl Oral Soln) 20 meq 1X ONCE PEG ; Start 08/31/16 at 15:00 ; Stop 08/31/16 at 15:00; Status DC Potassium Chloride (KCl Oral Soln) 20 meq DAILY PEG Last administered on 08:35; Start 09/01/16 at 09:00 Potassium Chloride (KCl Oral Soln) 40 meq 1X ONCE PEG Last administered on 08/31 16:32; Start 08/31/16 at 14:30; Stop 08/31/16 at 14:31; Status DC Insulin Aspart (Novolog) 10 units Q6HRS SQ Last administered on 09/02/16 00:23 ; Start 09/01/16 at 12:00; Stop 09/02/16 at 08:13; Status DC Insulin Detemir (Levemir) 20 units QHS SQ Last administered on 09/01/16 21:00; Start 09/01/16 at 21:00; Stop 09/02/16 at 08:13; Status DC Cefpodoxime Proxetil (Vantin) 100 mg BID PO Last administered on 09/04/16 08: 35; Start 09/01/16 at 10:00 Metoclopramide HCl (Reglan) 5 mg QIDACHS IV Last administered on 09/02/16 12:41 ; Start 09/01/16 at 11:30; Stop 09/02/16 at 13:11; Status DC Insulin Aspart (Novolog) 5 units Q6HRS SQ ; Start 09/02/16 at 12:00; Stop at 12:10; Status DC Insulin Detemir (Levemir) 10 units QHS SQ Last administered on 09/03/16 21:09 ; Start 09/02/16 at 21:00; Stop 09/04/16 at 10:14; Status DC Furosemide (Lasix) 40 mg 1X ONCE IVP Last administered on 09/02/16 08:47; Start 09/02/16 at 08:15; Stop 09/02/16 at 08:23; Status DC Levetiracetam (Keppra) 500 mg BID PEG Last administered on 09/04/16 08:34; Start 09/02/16 at 21:00 Pantoprazole Sodium (Protonix) 40 mg DAILYAC PO ; Start 09/03/16 at 07:30; Stop 09/03/16 at 07:30; Status DC Metoclopramide HCl (Reglan) 10 mg QIDACHS PO Last administered on 09/04/16 11: 38; Start 09/02/16 at 16:30 Levothyroxine Sodium (Synthroid) 100 mcg DAILY07 PO Last administered on 06:42; Start 09/03/16 at 07:00 Warfarin Sodium (Coumadin) 5 mg DAILY16 PO Last administered on 09/02/16 15:52 ; Start 09/02/16 at 16:00; Stop 09/03/16 at 08:31; Status DC Warfarin Sodium (Coumadin Per Pharmacy) 1 each PRN DAILY PRN MC SEE COMMENTS; Start 09/02/16 at 13:15; Stop 09/03/16 at 09:09; Status DC Lansoprazole (Prevacid) 30 mg DAILY PEG Last administered on 09/04/16 08:34; Start 09/03/16 at 09:00 Enoxaparin Sodium (Lovenox 60mg Syringe) 60 mg Q12HR SQ Last administered on 21:48; Start 09/02/16 at 15:00; Stop 09/03/16 at 08:31; Status DC Furosemide (Lasix) 40 mg 1X ONCE IVP Last administered on 09/03/16 14:15; Start 09/03/16 at 10:15; Stop 09/03/16 at 10:16; Status DC Info (Anti-Coagulation Monitoring By Pharmacy) 1 each PRN DAILY PRN MC SEE COMMENTS Last administered on 09/03/16 14:14; Start 09/03/16 at 14:00; Stop 05/13 at 07:59; Status DC Insulin Detemir (Levemir) 15 units QHS SQ ; Start 09/04/16 at 21:00 Active Scripts Active Reported Milk Of Magnesia (Magnesium Hydroxide) 2,400 Mg/10 Ml Oral.susp 2,400 Mg PO DAILY PRN Dulcolax (Bisacodyl) 10 Mg Supp.rect 10 Mg RC PRN DAILY PRN Aspirin 325 Mg Tablet 1 Tab PEG DAILY Tylenol (Acetaminophen) 325 Mg Tablet 2 Tab PO PRN Q6HRS PRN Vitamin B Complex 1 Each Tablet 1 Tab PO DAILY Vitamin D3 (Cholecalciferol (Vitamin D3)) 1,000 Unit Tablet 2,000 Unit PO DAILY Keppra (Levetiracetam) 500 Mg Tablet 500 Mg PO BID Vitals/I & O Vital Sign - Last 24 Hours 09/03/16 09/03/16 09/03/16 09/03/16 14:56 15:23 19:00 19:25 Temp 98.2 99.5 98.2 99.5 Pulse 103 119 Resp 22 20 B/P 99/55 124/67 Pulse Ox 95 93 O2 Delivery Nasal Cannula Nasal Cannula Nasal Cannula Nasal Cannula O2 Flow Rate 2.0 2.0 2.0 2.0 3/04/1209/03/16 09/04/16 09/04/16 19:42 23:00 03:00 07:34 Temp 99.2 102.4 99.2 102.4 Pulse 120 114 Resp 20 24 B/P 114/78 114/69 Pulse Ox 93 93 90 O2 Delivery Nasal Cannula Nasal Cannula Nasal Cannula Nasal Cannula O2 Flow Rate 2.0 2.0 2.0 3.0 09/04/16 09/04/16 09/04/16 09/04/16 07:36 08:30 10:26 11:12 Temp 98.1 97.5 98.1 97.5 Pulse 99 106 Resp 20 20 B/P 79/51 101/67 Pulse Ox 90 96 96 O2 Delivery Nasal Cannula Nasal Cannula Nasal Cannula Nasal Cannula O2 Flow Rate 4.0 4.0 3.0 3.0 Intake and Output 09/03/16 09/03/16 09/04/16 15:00 23:00 07:00 Intake Total 400 ml 400 ml 400 ml Output Total 1825 ml 1800 ml Balance 400 ml -1425 ml -1400 ml SOLANGE ESPOSITO MD Sep 04, 2016 13:54
[2016-09-04] MEDS ORDERED: INSULIN DETEMIR 300 UNITS/3 ML INSULN.PEN. SQ SCH (21:00)
[2016-09-05 03:28] VITALS: BP 111/64
[2016-09-05 04:53] LABS: BASO # 0.1 x10^3/uL (0.0-0.2); BASO % 1 % (0-3); EOS % 1 % (0-3); HEMATOCRIT 25.8 % (39.0-53.0); HEMOGLOBIN 8.7 g/dL (13.0-17.5); LYMPH # 1.4 x10^3/uL (1.0-4.8); LYMPH % 12 % (24-48); MEAN CORPUSCULAR HEMOGLOBIN 33 pg (25-35); MEAN CORPUSCULAR HGB CONC 34 g/dL (31-37); MEAN CORPUSCULAR VOLUME 100 fL (79-100); MONO % 5 % (0-9); NEUT % 81 % (31-73); PLATELET COUNT 205 x10^3/uL (140-400); RED BLOOD COUNT 2.59 x10^6/uL (4.30-5.70); RED CELL DISTRIBUTION WIDTH 20.6 % (11.5-14.5); WHITE BLOOD COUNT 12.1 x10^3/uL (4.0-11.0)
[2016-09-05 05:13] LABS: CALCIUM 7.8 mg/dL (8.5-10.1); GFR 93.9; POTASSIUM 3.9 mmol/L (3.5-5.1)
[2016-09-05] MEDS: LEVOTHYROXINE 100 MCG TABLET PO SCH (05:20)
[2016-09-05] MEDS: METOCLOPRAMIDE HCL 10 MG/10 ML SOLUTION. PO SCH ×4 (05:20→20:52)
[2016-09-05] MEDS: INSULIN ASPART 300 UNITS/3 ML INSULN.PEN SQ SCH ×4 (05:27→23:32)
[2016-09-05 07:00] VITALS: BP 132/87
[2016-09-05] MEDS: IPRATRPIUM/ALBUTEROL 0.5/2.5MG 3 ML NEBU. NEB SCH ×4 (07:50→19:25)
[2016-09-05] MEDS: LEVETIRACETAM 500 MG/5 ML SOLUTION PEG SCH ×2 (08:55→20:52)
[2016-09-05] MEDS: POTASSIUM CHLORIDE 20 MEQ/15 ML ORAL LIQUID. PEG SCH (08:55)
[2016-09-05] MEDS: CHOLECALCIFEROL (VITAMIN D3) 1,000 UNIT TABLET PO SCH (08:55)
[2016-09-05] MEDS: LANSOPRAZOLE 30 MG TAB.RAP.DR PEG SCH (08:55)
[2016-09-05] MEDS: CEFPODOXIME PROXETIL 100 MG TABLET PO SCH ×2 (08:55→20:52)
[2016-09-05] MEDS: ASPIRIN 325 MG TABLET PEG SCH (08:55)
[2016-09-05] MEDS: VITAMIN B COMPLEX TABLET. PO SCH (08:55)
--- NOTE | 2016-09-05 11:21 | PDOC ---
PULMONARY PROGRESS NOTES Subjective extubated 08/30 no soa resolved fever Vitals Vital Signs Date Time Temp Pulse Resp B/P Pulse Ox O2 Delivery O2 Flow Rate FiO2 09/05/16 07:50 95 Nasal Cannula 3.0 09/05/16 07:00 98.0 97 28 132/87 98.0 General: No acute distress Lungs: Other (few rhonchi) Cardiovascular: S1, S2 Abdomen: Soft Extremities: Other (swelling left upper, lower extremity edema) Skin: Warm Labs Laboratory Tests Test 09/03/16 11:46 09/03/16 16:52 09/03/16 21:04 09/04/16 00:26 Glucose (Fingerstick) 271mg/dL (70-99) 204mg/dL (70-99) 214mg/dL (70-99) 231mg/dL (70-99) Test 09/04/16 04:36 09/04/16 06:10 09/04/16 11:32 09/04/16 16:32 White Blood Count 11.7x10^3/uL (4.0-11.0) Red Blood Count 2.03x10^6/uL (4.30-5.70) Hemoglobin 7.0g/dL (13.0-17.5) Hematocrit 21.4% (39.0-53.0) Mean Corpuscular Volume 105fL (79-100) Mean Corpuscular Hemoglobin 34pg (25-35) Mean Corpuscular Hemoglobin Concent 33g/dL (31-37) Red Cell Distribution Width 16.1% (11.5-14.5) Platelet Count 159x10^3/uL (140-400) Neutrophils (%) (Auto) 82% (31-73) Lymphocytes (%) (Auto) 12% (24-48) Monocytes (%) (Auto) 4% (0-9) Eosinophils (%) (Auto) 1% (0-3) Basophils (%) (Auto) 0% (0-3) Neutrophils # (Auto) 9.6x10^3uL (1.8-7.7) Lymphocytes # (Auto) 1.5x10^3/uL (1.0-4.8) Monocytes # (Auto) 0.5x10^3/uL (0.0-1.1) Eosinophils # (Auto) 0.1x10^3/uL (0.0-0.7) Basophils # (Auto) 0.0x10^3/uL (0.0-0.2) Prothrombin Time 15.6SEC (11.7-14.0) Prothromb Time International Ratio 1.3 (0.8-1.1) Glucose (Fingerstick) 205mg/dL (70-99) 153mg/dL (70-99) 194mg/dL (70-99) Test 09/04/16 23:20 09/05/16 04:33 Glucose (Fingerstick) 248mg/dL (70-99) White Blood Count 12.1x10^3/uL (4.0-11.0) Red Blood Count 2.59x10^6/uL (4.30-5.70) Hemoglobin 8.7g/dL (13.0-17.5) Hematocrit 25.8% (39.0-53.0) Mean Corpuscular Volume 100fL (79-100) Mean Corpuscular Hemoglobin 33pg (25-35) Mean Corpuscular Hemoglobin Concent 34g/dL (31-37) Red Cell Distribution Width 20.6% (11.5-14.5) Platelet Count 205x10^3/uL (140-400) Neutrophils (%) (Auto) 81% (31-73) Lymphocytes (%) (Auto) 12% (24-48) Monocytes (%) (Auto) 5% (0-9) Eosinophils (%) (Auto) 1% (0-3) Basophils (%) (Auto) 1% (0-3) Neutrophils # (Auto) 9.8x10^3uL (1.8-7.7) Lymphocytes # (Auto) 1.4x10^3/uL (1.0-4.8) Monocytes # (Auto) 0.6x10^3/uL (0.0-1.1) Eosinophils # (Auto) 0.1x10^3/uL (0.0-0.7) Basophils # (Auto) 0.1x10^3/uL (0.0-0.2) Sodium Level 140mmol/L (136-145) Potassium Level 3.9mmol/L (3.5-5.1) Chloride Level 105mmol/L (98-107) Carbon Dioxide Level 31mmol/L (21-32) Anion Gap 4 (6-14) Blood Urea Nitrogen 19mg/dL (8-26) Creatinine 1.0mg/dL (0.7-1.3) Estimated GFR (Cockcroft-Gault) 93.9 Glucose Level 227mg/dL (70-99) Calcium Level 7.8mg/dL (8.5-10.1) Laboratory Tests Test 09/04/16 11:32 09/04/16 16:32 09/04/16 23:20 09/05/16 04:33 Glucose (Fingerstick) 153mg/dL (70-99) 194mg/dL (70-99) 248mg/dL (70-99) White Blood Count 12.1x10^3/uL (4.0-11.0) Red Blood Count 2.59x10^6/uL (4.30-5.70) Hemoglobin 8.7g/dL (13.0-17.5) Hematocrit 25.8% (39.0-53.0) Mean Corpuscular Volume 100fL (79-100) Mean Corpuscular Hemoglobin 33pg (25-35) Mean Corpuscular Hemoglobin Concent 34g/dL (31-37) Red Cell Distribution Width 20.6% (11.5-14.5) Platelet Count 205x10^3/uL (140-400) Neutrophils (%) (Auto) 81% (31-73) Lymphocytes (%) (Auto) 12% (24-48) Monocytes (%) (Auto) 5% (0-9) Eosinophils (%) (Auto) 1% (0-3) Basophils (%) (Auto) 1% (0-3) Neutrophils # (Auto) 9.8x10^3uL (1.8-7.7) Lymphocytes # (Auto) 1.4x10^3/uL (1.0-4.8) Monocytes # (Auto) 0.6x10^3/uL (0.0-1.1) Eosinophils # (Auto) 0.1x10^3/uL (0.0-0.7) Basophils # (Auto) 0.1x10^3/uL (0.0-0.2) Sodium Level 140mmol/L (136-145) Potassium Level 3.9mmol/L (3.5-5.1) Chloride Level 105mmol/L (98-107) Carbon Dioxide Level 31mmol/L (21-32) Anion Gap 4 (6-14) Blood Urea Nitrogen 19mg/dL (8-26) Creatinine 1.0mg/dL (0.7-1.3) Estimated GFR (Cockcroft-Gault) 93.9 Glucose Level 227mg/dL (70-99) Calcium Level 7.8mg/dL (8.5-10.1) Medications Active Scripts Medications Dose Route/Sig Days Date Category Milk Of Magnesia (Magnesium Hydroxide) 2,400 Mg/10 Ml Oral.susp 2,400 Mg PO DAILY PRN 08/21/15 Reported Dulcolax (Bisacodyl) 10 Mg Supp.rect 10 Mg RC PRN DAILY PRN 08/21/15 Reported Aspirin 325 Mg Tablet 1 Tab PEG DAILY 08/02/15 Reported Tylenol (Acetaminophen) 325 Mg Tablet 2 Tab PO PRN Q6HRS PRN 08/02/15 Reported Vitamin B Complex 1 Each Tablet 1 Tab PO DAILY 07/25/15 Reported Vitamin D3 (Cholecalciferol (Vitamin D3)) 1,000 Unit Tablet 2,000 Unit PO DAILY 07/25/15 Reported Keppra (Levetiracetam) 500 Mg Tablet 500 Mg PO BID 07/25/15 Reported Impression . 1. Acute hypoxic respiratory failure secondary septic shock, resolved, extubated 08/30 2. Septic shock cultures so far negative, resolved 3. Persistent abnormal chest x-ray with bilateral infiltrate 4. Acute severe metabolic acidosis with severe lactic acidosis secondary to sepsis/septic shock. MAHAD contributing to metabolic acidosis, improved 5. Hematuria 6. Urinary tract infection. 7. Coagulopathy, most likely related to early disseminated intravascular coagulation. 8. Underlying Down's syndrome 9. Dysphagia S/P PEG 10. New fever, ID following, left upper DVT 11. left upper DVT (brachial and axillary) due to PICC, non-occlusive Right lower extremity DVT 12. GI bleed Plan . nasal canula off coumadin due to GI bleed/ GI following. 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 PICC removed IVC filter ordered by PCP. I agree TF OFF steroids lasix follow ID recommendations SADA CORTEZ MD Sep 05, 2016 11:21
[2016-09-05 11:30] VITALS: BP 123/71
--- NOTE | 2016-09-05 13:01 | PDOC ---
PROGRESS NOTES Chief Complaint Chief Complaint Resp failure - was intubated, breathing werll 1. Severe Sepsis, pneumonia 2. PNA, bed bound, , aspiration 3. Bed bound, non verbal, hx down's, and hx CVA 4. Dysphagia, indwelling PEG 5 MAHAD, vasomotor, now recovery phase with marked (critical) hypokalemia, 6. Gap metabolic acidosis, recent vomiting, severe sepsis 7. hypothyroidism 8. down syndrome 9. possible gastroparesis 10. h/o CVA 11. LEFT arm dvt with PICC. 12. rectal bleeding with ac on 09/02 13. anemia, 2/2 chronic dz and rectal bleeding plan: 1. fu with pulm, id, GI 2. slowly PEG feeding with 9, KUB ruled out obstruction 3. change iv abx to po as per ID 4. on NC 2 L 4. dc aspart, cont levemir, increase to 20 qhs, dc PPN, lasix 40mg ivx1 dc lovenox, warfarin, given rectal bleeding, cont asa for now. not a good candidate for AC. need IVC filter, IR consult pending dced steroid 1 u PRBC transfusion 09/04 BP better with transfusion still fever, could 2/2 DVT. PAT consult again on Tuesday History of Present Illness History of Present Illness code status changed to DNR on on this admit NON VERbal baseline PEG feeding, chronic, at goal 50cc/h hyperglycemia gets low wo steroid fever again on 09/02, high wbc, tachycardia rectal bleeding on 09/03 with asa, lovenox and warfarin only one time on 09/02. no more rectal bleeding on asa only now + dvt with left arm PICC , removed line low BP 09/04 Vitals Vitals Vital Signs Date Time Temp Pulse Resp B/P Pulse Ox O2 Delivery O2 Flow Rate FiO2 09/05/16 11:31 Nasal Cannula 3.0 09/05/16 11:30 98.8 83 20 123/71 100 98.8 Physical Exam Physical Exam no follow commands or talk as baseline General: Alert, No acute distress, Other ( awake, ) Heart: Regular rate, No murmurs Lungs: Other (few rhonchi) Abdomen: Normal bowel sounds, Soft, No tenderness Extremities: No clubbing Skin: No breakdown, No significant lesion Labs LABS Laboratory Tests Test 09/04/16 16:32 09/04/16 23:20 09/05/16 04:33 09/05/16 11:41 Glucose (Fingerstick) 194mg/dL (70-99) 248mg/dL (70-99) 207mg/dL (70-99) White Blood Count 12.1x10^3/uL (4.0-11.0) Red Blood Count 2.59x10^6/uL (4.30-5.70) Hemoglobin 8.7g/dL (13.0-17.5) Hematocrit 25.8% (39.0-53.0) Mean Corpuscular Volume 100fL (79-100) Mean Corpuscular Hemoglobin 33pg (25-35) Mean Corpuscular Hemoglobin Concent 34g/dL (31-37) Red Cell Distribution Width 20.6% (11.5-14.5) Platelet Count 205x10^3/uL (140-400) Neutrophils (%) (Auto) 81% (31-73) Lymphocytes (%) (Auto) 12% (24-48) Monocytes (%) (Auto) 5% (0-9) Eosinophils (%) (Auto) 1% (0-3) Basophils (%) (Auto) 1% (0-3) Neutrophils # (Auto) 9.8x10^3uL (1.8-7.7) Lymphocytes # (Auto) 1.4x10^3/uL (1.0-4.8) Monocytes # (Auto) 0.6x10^3/uL (0.0-1.1) Eosinophils # (Auto) 0.1x10^3/uL (0.0-0.7) Basophils # (Auto) 0.1x10^3/uL (0.0-0.2) Sodium Level 140mmol/L (136-145) Potassium Level 3.9mmol/L (3.5-5.1) Chloride Level 105mmol/L (98-107) Carbon Dioxide Level 31mmol/L (21-32) Anion Gap 4 (6-14) Blood Urea Nitrogen 19mg/dL (8-26) Creatinine 1.0mg/dL (0.7-1.3) Estimated GFR (Cockcroft-Gault) 93.9 Glucose Level 227mg/dL (70-99) Calcium Level 7.8mg/dL (8.5-10.1) Review of Systems Review of Systems no fever, chills, sob or chest pain Assessment and Plan Assessmemt and Plan Problems Medical Problems: (1) HAP (hospital-acquired pneumonia) Status: Acute (2) Pneumonia Status: Acute Problems: Comment Review of Relevant I have reviewed the following items kassie (where applicable) has been applied. Labs Laboratory Tests Test 09/03/16 16:52 09/03/16 21:04 09/04/16 00:26 09/04/16 04:36 Glucose (Fingerstick) 204mg/dL (70-99) 214mg/dL (70-99) 231mg/dL (70-99) White Blood Count 11.7x10^3/uL (4.0-11.0) Red Blood Count 2.03x10^6/uL (4.30-5.70) Hemoglobin 7.0g/dL (13.0-17.5) Hematocrit 21.4% (39.0-53.0) Mean Corpuscular Volume 105fL (79-100) Mean Corpuscular Hemoglobin 34pg (25-35) Mean Corpuscular Hemoglobin Concent 33g/dL (31-37) Red Cell Distribution Width 16.1% (11.5-14.5) Platelet Count 159x10^3/uL (140-400) Neutrophils (%) (Auto) 82% (31-73) Lymphocytes (%) (Auto) 12% (24-48) Monocytes (%) (Auto) 4% (0-9) Eosinophils (%) (Auto) 1% (0-3) Basophils (%) (Auto) 0% (0-3) Neutrophils # (Auto) 9.6x10^3uL (1.8-7.7) Lymphocytes # (Auto) 1.5x10^3/uL (1.0-4.8) Monocytes # (Auto) 0.5x10^3/uL (0.0-1.1) Eosinophils # (Auto) 0.1x10^3/uL (0.0-0.7) Basophils # (Auto) 0.0x10^3/uL (0.0-0.2) Prothrombin Time 15.6SEC (11.7-14.0) Prothromb Time International Ratio 1.3 (0.8-1.1) Test 09/04/16 06:10 09/04/16 11:32 09/04/16 16:32 09/04/16 23:20 Glucose (Fingerstick) 205mg/dL (70-99) 153mg/dL (70-99) 194mg/dL (70-99) 248mg/dL (70-99) Test 09/05/16 04:33 09/05/16 11:41 White Blood Count 12.1x10^3/uL (4.0-11.0) Red Blood Count 2.59x10^6/uL (4.30-5.70) Hemoglobin 8.7g/dL (13.0-17.5) Hematocrit 25.8% (39.0-53.0) Mean Corpuscular Volume 100fL (79-100) Mean Corpuscular Hemoglobin 33pg (25-35) Mean Corpuscular Hemoglobin Concent 34g/dL (31-37) Red Cell Distribution Width 20.6% (11.5-14.5) Platelet Count 205x10^3/uL (140-400) Neutrophils (%) (Auto) 81% (31-73) Lymphocytes (%) (Auto) 12% (24-48) Monocytes (%) (Auto) 5% (0-9) Eosinophils (%) (Auto) 1% (0-3) Basophils (%) (Auto) 1% (0-3) Neutrophils # (Auto) 9.8x10^3uL (1.8-7.7) Lymphocytes # (Auto) 1.4x10^3/uL (1.0-4.8) Monocytes # (Auto) 0.6x10^3/uL (0.0-1.1) Eosinophils # (Auto) 0.1x10^3/uL (0.0-0.7) Basophils # (Auto) 0.1x10^3/uL (0.0-0.2) Sodium Level 140mmol/L (136-145) Potassium Level 3.9mmol/L (3.5-5.1) Chloride Level 105mmol/L (98-107) Carbon Dioxide Level 31mmol/L (21-32) Anion Gap 4 (6-14) Blood Urea Nitrogen 19mg/dL (8-26) Creatinine 1.0mg/dL (0.7-1.3) Estimated GFR (Cockcroft-Gault) 93.9 Glucose Level 227mg/dL (70-99) Calcium Level 7.8mg/dL (8.5-10.1) Glucose (Fingerstick) 207mg/dL (70-99) Laboratory Tests Test 09/04/16 16:32 09/04/16 23:20 09/05/16 04:33 09/05/16 11:41 Glucose (Fingerstick) 194mg/dL (70-99) 248mg/dL (70-99) 207mg/dL (70-99) White Blood Count 12.1x10^3/uL (4.0-11.0) Red Blood Count 2.59x10^6/uL (4.30-5.70) Hemoglobin 8.7g/dL (13.0-17.5) Hematocrit 25.8% (39.0-53.0) Mean Corpuscular Volume 100fL (79-100) Mean Corpuscular Hemoglobin 33pg (25-35) Mean Corpuscular Hemoglobin Concent 34g/dL (31-37) Red Cell Distribution Width 20.6% (11.5-14.5) Platelet Count 205x10^3/uL (140-400) Neutrophils (%) (Auto) 81% (31-73) Lymphocytes (%) (Auto) 12% (24-48) Monocytes (%) (Auto) 5% (0-9) Eosinophils (%) (Auto) 1% (0-3) Basophils (%) (Auto) 1% (0-3) Neutrophils # (Auto) 9.8x10^3uL (1.8-7.7) Lymphocytes # (Auto) 1.4x10^3/uL (1.0-4.8) Monocytes # (Auto) 0.6x10^3/uL (0.0-1.1) Eosinophils # (Auto) 0.1x10^3/uL (0.0-0.7) Basophils # (Auto) 0.1x10^3/uL (0.0-0.2) Sodium Level 140mmol/L (136-145) Potassium Level 3.9mmol/L (3.5-5.1) Chloride Level 105mmol/L (98-107) Carbon Dioxide Level 31mmol/L (21-32) Anion Gap 4 (6-14) Blood Urea Nitrogen 19mg/dL (8-26) Creatinine 1.0mg/dL (0.7-1.3) Estimated GFR (Cockcroft-Gault) 93.9 Glucose Level 227mg/dL (70-99) Calcium Level 7.8mg/dL (8.5-10.1) Microbiology 09/02/16 Blood Culture - Preliminary, Resulted NO GROWTH AFTER 3 DAYS 08/23/16 Urine Culture - Final, Complete 08/23/16 Urine Culture Result 1 (SHANON) - Final, Complete 08/23/16 Antimicrobic Susceptibility - Final, Complete Medications Current Medications Sodium Chloride 1,000 ml @ 1,000 mls/hr 1X ONCE IV Last administered on 11:16; Start 08/23/16 at 11:15; Stop 08/23/16 at 12:14; Status DC Sodium Chloride (Iv Sodium Chloride 0.9% 1000ml Bag) 1,000 ml @ 1,000 mls/hr 1X ONCE IV Last administered on 08/23/16 11:30; Start 08/23/16 at 11:30; Stop 08/23/16 at 12:29; Status DC Vancomycin HCl (Vanco Per Pharmacy) 1 each PRN DAILY PRN MC SEE COMMENTS Last administered on 08/25/16 13:04; Start 08/23/16 at 11:30; Stop 08/26/16 at 08:18; Status DC Piperacillin Sod/ Tazobactam Sod 1 each 1 each PRN DAILY PRN MC SEE COMMENTS; Start 08/23/16 at 11:30; Stop 08/25/16 at 09:54; Status DC Levofloxacin/ Dextrose 100 ml @ 100 mls/hr 1X ONCE IV Last administered on 12:58; Start 08/23/16 at 11:30; Stop 08/23/16 at 12:29; Status DC Piperacillin Sod/ Tazobactam Sod 4.5 gm/Sodium Chloride 100 ml @ 200 mls/hr 1X ONCE IV Last administered on 08/23/16 12:00; Start 08/23/16 at 12:00; Stop 08/23/16 at 12:29; Status DC Vancomycin HCl 1.5 gm/Sodium Chloride 500 ml @ 250 mls/hr 1X ONCE IV Last administered on 08/23/16 12:30; Start 08/23/16 at 12:30; Stop 08/23/16 at 14:29 ; Status DC Sodium Chloride 1,000 ml @ 1,000 mls/hr 1X ONCE IV Last administered on 12:46; Start 08/23/16 at 12:30; Stop 08/23/16 at 13:29; Status DC Piperacillin Sod/ Tazobactam Sod 3.375 gm/Sodium Chloride 50 ml @ 100 mls/hr Q6HRS IV Last administered on 09/01/16 05:29; Start 08/23/16 at 18:00; Stop 09/01/16 at 09:08; Status DC Vancomycin HCl/ Sodium Chloride (Iv Sodium Chloride 0.9% 250ml) 250 ml @ 250 mls/hr Q24H IV ; Start 08/24/16 at 13:00; Status Cancel Vancomycin HCl 1 each 1X ONCE MC ; Start 08/25/16 at 12:30; Stop 08/25/16 at 12: 31; Status DC Labetalol HCl (Normodyne) 10 mg PRN Q2HR PRN IVP HYPERTENSION, SEE COMMENTS; Start 08/23/16 at 15:45 Aspirin ([email or web address] Aspirin) 325 mg DAILY PEG Last administered on 09/05/16 08:55; Start 08/24/16 at 09:00 Bisacodyl (Dulcolax Supp) 10 mg PRN DAILY PRN RC CONSTIPATION Last administered on 08/29/16 15:48; Start 08/23/16 at 15:45 Vitamin D (Vitamin D3) 2,000 unit DAILY PO Last administered on 09/05/16 08:55 ; Start 08/24/16 at 09:00 Levetiracetam (Keppra) 500 mg BID PO ; Start 08/23/16 at 21:00; Stop 08/23/16 at 21:00; Status DC Vitamin B Complex (Hector B) 1 tab DAILY PO Last administered on 09/05/16 08:55 ; Start 08/24/16 at 09:00 Magnesium Hydroxide (Milk Of Magnesia) 2,400 mg PRN DAILY PRN PO CONSTIPATION; Start 08/23/16 at 15:45 Acetaminophen 500 mg 500 mg PRN Q6HRS PRN PO MILD PAIN / TEMP; Start 08/23/16 at 15:45 Levetiracetam/ Sodium Chloride (Keppra/Iv Sodium Chloride 0.9% 100ml) 105 ml @ 400 mls/hr Q12HR IV Last administered on 09/02/16 08:49; Start 08/23/16 at 21: 00; Stop 09/02/16 at 13:11; Status DC Pantoprazole Sodium (Protonix Vial) 40 mg DAILYAC IVP Last administered on 08:36; Start 08/24/16 at 07:30; Stop 09/02/16 at 13:11; Status DC Heparin Sodium (Porcine) 5000 unit 5,000 unit Q8HRS SQ ; Start 08/23/16 at 22:00 ; Stop 08/23/16 at 22:00; Status DC Sodium Bicarbonate/ Dextrose 1,150 ml @ 150 mls/hr Q7H40M IV Last administered on 08/25/16 08:05; Start 08/23/16 at 16:30; Stop 08/25/16 at 10:35; Status DC Sodium Bicarbonate 50 meq 1X ONCE IV Last administered on 08/23/16 16:24; Start 08/23/16 at 16:15; Stop 08/23/16 at 16:17; Status DC Albuterol/ Ipratropium 3 ml 3 ml RTQID NEB Last administered on 09/05/16 11:31 ; Start 08/23/16 at 20:00 Vancomycin HCl 750 mg/Sodium Chloride 250 ml @ 250 mls/hr Q24H IV Last administered on 08/24/16 12:15; Start 08/24/16 at 13:00; Stop 08/25/16 at 12:55 ; Status DC Norepinephrine Bitartrate 8 mg/ Sodium Chloride 258 ml @ 0 mls/hr CONT PRN IV SEE I/O RECORD Last administered on 08/25/16 00:28; Start 08/23/16 at 18:15; Stop 09/01/16 at 09:01; Status DC Sodium Chloride (Iv Sodium Chloride 0.9% 1000ml Bag) 1,000 ml @ 500 mls/hr Q2H IV Last administered on 08/23/16 17:00; Start 08/23/16 at 18:30; Stop at 20:29; Status DC Hydrocortisone Sodium Succinate (Solu-Cortef) 100 mg Q8HRS IV Last administered on 08/26/16 14:54; Start 08/23/16 at 22:30; Stop 08/26/16 at 16:49; Status DC Succinylcholine Chloride (Anectine) 200 mg STK-MED ONCE .ROUTE ; Start 08/24/16 at 04:15; Stop 08/24/16 at 04:16; Status DC Etomidate 20 mg 20 mg STK-MED ONCE IV ; Start 08/24/16 at 04:15; Stop 08/24/16 at 04:16; Status DC Fentanyl Citrate (Fentanyl 600 Mcg/30 ml ARCH [employer] MACHINE OPERATOR) 30 ml @ 0 mls/hr CONT PRN IV PROTOCOL Last administered on 08/30/16 04:54; Start 08/24/16 at 04:45; Stop 04/12 at 08:03; Status DC Fentanyl Citrate (Fentanyl 2ml Vial) 25 mcg PRN Q1HR PRN IV COMM Last administered on 08/29/16 07:44; Start 08/24/16 at 04:45; Stop 08/30/16 at 16:51; Status DC Fentanyl Citrate (Fentanyl 2ml Vial) 50 mcg PRN Q1HR PRN IV COMM; Start at 04:45; Status Cancel Chlorhexidine Gluconate 15 ml 15 ml BID MM Last administered on 08/30/16 08:15 ; Start 08/24/16 at 09:00; Stop 08/30/16 at 22:16; Status DC Midazolam HCl 100 ml @ 0 mls/hr CONT PRN IV PER PROTOCOL Last administered on 10:50; Start 08/24/16 at 04:45; Stop 09/01/16 at 09:02; Status DC Midazolam HCl 100 ml @ As Directed STK-MED ONCE IV ; Start 08/24/16 at 04:52; Stop 08/24/16 at 04:53; Status DC Sodium Chloride 1,000 ml @ 150 mls/hr Q6H40M IV Last administered on 06:13; Start 08/24/16 at 05:45; Stop 08/24/16 at 09:59; Status DC Vasopressin 40 unit/Dextrose 102 ml @ 6 mls/hr 1X ONCE IV Last administered on 08/24/16 06:12; Start 08/24/16 at 06:00; Stop 08/24/16 at 20:00; Status DC Phenylephrine HCl 20 mg/Sodium Chloride 252 ml @ 0 mls/hr CONT PRN IV SEE I/O RECORD Last administered on 08/24/16 07:28; Start 08/24/16 at 05:45; Stop 09/03 at 08:03; Status DC Albumin Human 500 ml @ 125 mls/hr 1X ONCE IV Last administered on 08/24/16 06:20; Start 08/24/16 at 05:45; Stop 08/24/16 at 09:44; Status DC Micafungin Sodium 100 mg/Dextrose 100 ml @ 100 mls/hr Q24H IV Last administered on 08/26/16 09:29; Start 08/24/16 at 09:00; Stop 08/27/16 at 07:37; Status DC Epinephrine HCl/ Sodium Chloride (Adrenalin/Iv Sodium Chloride 0.9% 250ml) 254 ml @ 0 mls/hr CONT PRN IV SEE I/O RECORD; Start 08/24/16 at 07:30; Status Cancel Epinephrine HCl (Adrenalin) 30 mg STK-MED ONCE .ROUTE ; Start 08/23/16 at 12:00 ; Stop 08/24/16 at 10:38; Status DC Epinephrine HCl 4 mg STK-MED ONCE .ROUTE ; Start 08/23/16 at 12:00; Stop at 10:38; Status DC Sodium Bicarbonate 100 meq 100 meq STK-MED ONCE .ROUTE ; Start 08/23/16 at 12:00 ; Stop 08/24/16 at 10:38; Status DC Levothyroxine Sodium 50 mcg/ Sodium Chloride 5 ml @ 100 mls/hr DAILY IVP Last administered on 09/02/16 08:50; Start 08/24/16 at 15:00; Stop 09/02/16 at 13:11; Status DC Phytonadione 10 mg/Sodium Chloride 51 ml @ 102 mls/hr 1X ONCE IV Last administered on 08/24/16 15:14; Start 08/24/16 at 14:30; Stop 08/24/16 at 14:59 ; Status DC Vasopressin/ Dextrose (Vasostrict) 102 ml @ 6 mls/hr CONT PRN IV SEE I/O RECORD Last administered on 08/26/16 05:44; Start 08/24/16 at 18:15; Stop at 18:47; Status DC Acetaminophen 650 mg 650 mg PRN Q6HRS PRN PEG MILD PAIN / TEMP Last administered on 09/04/16 04:07; Start 08/24/16 at 20:45 Levofloxacin/ Dextrose (LEVAQUIN 500mg PREMIX) 100 ml @ 100 mls/hr 1X ONCE IV Last administered on 08/25/16 08:06; Start 08/25/16 at 08:00; Stop 08/25/16 at 08:59; Status DC Insulin Aspart (Novolog) 0-9 UNITS TIDWMEALS SQ Last administered on 08/25/16 17:23; Start 08/25/16 at 08:00; Stop 08/25/16 at 19:32; Status DC Dextrose 12.5 gm PRN Q15MIN PRN IV SEE COMMENTS Last administered on 09/02/16 06:08; Start 08/25/16 at 07:30 Insulin Aspart 10 units 10 units 1X ONCE SQ Last administered on 08/25/16 08: 08; Start 08/25/16 at 08:00; Stop 08/25/16 at 08:01; Status DC Sodium Chloride 1,000 ml @ 50 mls/hr Q20H IV Last administered on 08/31/16 07: 36; Start 08/25/16 at 11:00; Stop 08/31/16 at 18:09; Status DC Potassium Chloride/Sodium Chloride (Iv Sodium Chloride 0.45%) 1,015 ml @ 75 mls /hr 1X ONCE IV Last administered on 08/25/16 10:55; Start 08/25/16 at 11:00; Stop 08/26/16 at 00:31; Status DC Insulin Aspart 10 units 10 units 1X ONCE SQ Last administered on 08/25/16 12: 42; Start 08/25/16 at 12:45; Stop 08/25/16 at 12:46; Status DC Vancomycin HCl/ Sodium Chloride (Iv Sodium Chloride 0.9% 250ml) 250 ml @ 250 mls/hr Q18H IV Last administered on 08/26/16 06:39; Start 08/25/16 at 13:00; Stop 08/26/16 at 08:18; Status DC Insulin Aspart 0-9 UNITS Q6HRS SQ Last administered on 09/05/16 12:13; Start 08/26/16 at 00:00 Levofloxacin/ Dextrose 100 ml @ 100 mls/hr 1X ONCE IV Last administered on 09:28; Start 08/26/16 at 09:30; Stop 08/26/16 at 10:29; Status DC Potassium Chloride/Sodium Chloride (Iv Sodium Chloride 0.45%) 1,015 ml @ 75 mls /hr 1X ONCE IV Last administered on 08/26/16 15:23; Start 08/26/16 at 11:00; Stop 08/27/16 at 00:31; Status DC Hydrocortisone Sodium Succinate 100 mg 100 mg BID IV Last administered on 08:15; Start 08/27/16 at 09:00; Stop 08/30/16 at 09:26; Status DC Amino Acids/ Electrolytes/ Dextrose 1,000 ml @ 80 mls/hr [id number] IV Last administered on 09/02/16 00:11; Start 08/27/16 at 12:30; Stop 09/02/16 at 08:13; Status DC Potassium Chloride (KCl Premix 20meq) 50 ml @ 50 mls/hr 1X ONCE IV Last administered on 08/27/16 15:29; Start 08/27/16 at 12:30; Stop 08/27/16 at 13:29; Status DC Insulin Aspart 15 units 15 units 1X ONCE SQ Last administered on 08/28/16 07: 13; Start 08/28/16 at 07:15; Stop 08/28/16 at 07:16; Status DC Propofol 100 ml @ As Directed STK-MED ONCE IV ; Start 08/29/16 at 16:23; Stop at 16:24; Status DC Propofol (Diprivan) 100 ml @ 0 mls/hr CONT PRN IV SEE I/O RECORD Last administered on 08/29/16 16:30; Start 08/29/16 at 18:00; Stop 09/02/16 at 14:32; Status DC Insulin Aspart 6 units 6 units 1X ONCE SQ Last administered on 08/30/16 08:18 ; Start 08/30/16 at 07:15; Stop 08/30/16 at 07:16; Status DC Potassium Chloride (KCl Premix 20meq) 50 ml @ 50 mls/hr Q1H IV Last administered on 08/30/16 12:00; Start 08/30/16 at 07:30; Stop 08/30/16 at 09:29; Status DC Hydrocortisone Sodium Succinate (Solu-Cortef) 50 mg BID IV Last administered on 08/31/16 09:28; Start 08/30/16 at 21:00; Stop 08/31/16 at 09:41; Status DC Insulin Aspart (Novolog) 10 units 1X ONCE SQ Last administered on 08/31/16 00: 49; Start 08/31/16 at 01:00; Stop 08/31/16 at 01:01; Status DC Hydrocortisone Sodium Succinate (Solu-Cortef) 25 mg BID IV Last administered on 09/01/16 09:27; Start 08/31/16 at 21:00; Stop 09/01/16 at 12:11; Status DC Insulin Aspart (Novolog) 10 units TIDAC SQ Last administered on 08/31/16 16:36 ; Start 08/31/16 at 11:30; Stop 09/01/16 at 08:59; Status DC Insulin Detemir 15 units 15 units DAILY10 SQ Last administered on 08/31/16 11: 59; Start 08/31/16 at 11:30; Stop 09/01/16 at 08:59; Status DC Potassium Chloride (KCl Premix 20meq) 50 ml @ 50 mls/hr Q1H IV Last administered on 08/31/16 16:32; Start 08/31/16 at 12:00; Stop 08/31/16 at 15:59; Status DC Potassium Chloride (KCl Oral Soln) 20 meq 1X ONCE PEG ; Start 08/31/16 at 15:00 ; Stop 08/31/16 at 15:00; Status DC Potassium Chloride (KCl Oral Soln) 20 meq DAILY PEG Last administered on 08:55; Start 09/01/16 at 09:00 Potassium Chloride (KCl Oral Soln) 40 meq 1X ONCE PEG Last administered on 08/31 16:32; Start 08/31/16 at 14:30; Stop 08/31/16 at 14:31; Status DC Insulin Aspart (Novolog) 10 units Q6HRS SQ Last administered on 09/02/16 00:23 ; Start 09/01/16 at 12:00; Stop 09/02/16 at 08:13; Status DC Insulin Detemir (Levemir) 20 units QHS SQ Last administered on 09/01/16 21:00; Start 09/01/16 at 21:00; Stop 09/02/16 at 08:13; Status DC Cefpodoxime Proxetil (Vantin) 100 mg BID PO Last administered on 09/05/16 08: 55; Start 09/01/16 at 10:00 Metoclopramide HCl (Reglan) 5 mg QIDACHS IV Last administered on 09/02/16 12:41 ; Start 09/01/16 at 11:30; Stop 09/02/16 at 13:11; Status DC Insulin Aspart (Novolog) 5 units Q6HRS SQ ; Start 09/02/16 at 12:00; Stop at 12:10; Status DC Insulin Detemir (Levemir) 10 units QHS SQ Last administered on 09/03/16 21:09 ; Start 09/02/16 at 21:00; Stop 09/04/16 at 10:14; Status DC Furosemide (Lasix) 40 mg 1X ONCE IVP Last administered on 09/02/16 08:47; Start 09/02/16 at 08:15; Stop 09/02/16 at 08:23; Status DC Levetiracetam (Keppra) 500 mg BID PEG Last administered on 09/05/16 08:55; Start 09/02/16 at 21:00 Pantoprazole Sodium (Protonix) 40 mg DAILYAC PO ; Start 09/03/16 at 07:30; Stop 09/03/16 at 07:30; Status DC Metoclopramide HCl (Reglan) 10 mg QIDACHS PO Last administered on 09/05/16 11: 43; Start 09/02/16 at 16:30 Levothyroxine Sodium (Synthroid) 100 mcg DAILY07 PO Last administered on 05:20; Start 09/03/16 at 07:00 Warfarin Sodium (Coumadin) 5 mg DAILY16 PO Last administered on 09/02/16 15:52 ; Start 09/02/16 at 16:00; Stop 09/03/16 at 08:31; Status DC Warfarin Sodium (Coumadin Per Pharmacy) 1 each PRN DAILY PRN MC SEE COMMENTS; Start 09/02/16 at 13:15; Stop 09/03/16 at 09:09; Status DC Lansoprazole (Prevacid) 30 mg DAILY PEG Last administered on 09/05/16 08:55; Start 09/03/16 at 09:00 Enoxaparin Sodium (Lovenox 60mg Syringe) 60 mg Q12HR SQ Last administered on 21:48; Start 09/02/16 at 15:00; Stop 09/03/16 at 08:31; Status DC Furosemide (Lasix) 40 mg 1X ONCE IVP Last administered on 09/03/16 14:15; Start 09/03/16 at 10:15; Stop 09/03/16 at 10:16; Status DC Info (Anti-Coagulation Monitoring By Pharmacy) 1 each PRN DAILY PRN MC SEE COMMENTS Last administered on 09/03/16 14:14; Start 09/03/16 at 14:00; Stop 05/13 at 07:59; Status DC Insulin Detemir (Levemir) 15 units QHS SQ Last administered on 09/04/16 20:47 ; Start 09/04/16 at 21:00; Stop 09/05/16 at 08:39; Status DC Insulin Detemir (Levemir) 18 units QHS SQ ; Start 09/05/16 at 21:00 Active Scripts Active Reported Milk Of Magnesia (Magnesium Hydroxide) 2,400 Mg/10 Ml Oral.susp 2,400 Mg PO DAILY PRN Dulcolax (Bisacodyl) 10 Mg Supp.rect 10 Mg RC PRN DAILY PRN Aspirin 325 Mg Tablet 1 Tab PEG DAILY Tylenol (Acetaminophen) 325 Mg Tablet 2 Tab PO PRN Q6HRS PRN Vitamin B Complex 1 Each Tablet 1 Tab PO DAILY Vitamin D3 (Cholecalciferol (Vitamin D3)) 1,000 Unit Tablet 2,000 Unit PO DAILY Keppra (Levetiracetam) 500 Mg Tablet 500 Mg PO BID Vitals/I & O Vital Sign - Last 24 Hours 09/04/16 09/04/16 09/04/16 09/04/16 14:09 15:24 15:41 15:46 Temp 98.0 99.2 99.1 98.0 99.2 99.1 Pulse 111 96 100 Resp 14 B/P 113/68 99/61 72/47 Pulse Ox 95 96 O2 Delivery Nasal Cannula Nasal Cannula O2 Flow Rate 3.0 3.0 09/04/16 09/04/16 09/04/16 09/04/16 16:27 17:21 18:25 19:00 Temp 98.8 98.7 98.8 98.8 98.7 98.8 Pulse 96 99 102 Resp B/P 92/61 102/66 92/67 O2 Delivery Nasal Cannula O2 Flow Rate 2.0 09/04/16 09/04/16 09/04/16 09/04/16 19:19 19:37 20:28 23:00 Temp 97.0 97.4 98.2 97.0 97.4 98.2 Pulse 106 110 101 Resp B/P 108/71 108/71 117/78 Pulse Ox 94 94 94 O2 Delivery Nasal Cannula Nasal Cannula Nasal Cannula O2 Flow Rate 3.0 2.5 3.0 09/05/16 09/05/16 09/05/16 09/05/16 03:28 07:00 07:45 07:50 Temp 98.0 98.0 98.0 98.0 Pulse 98 97 Resp B/P 111/64 132/87 Pulse Ox 95 98 95 O2 Delivery Nasal Cannula Nasal Cannula Nasal Cannula Nasal Cannula O2 Flow Rate 3.0 3.0 3.0 3.0 09/05/16 09/05/16 11:30 11:31 Temp 98.8 98.8 Pulse 83 Resp 20 B/P 123/71 Pulse Ox 100 O2 Delivery Nasal Cannula Nasal Cannula O2 Flow Rate 3.0 3.0 Intake and Output 09/04/16 09/04/16 09/05/16 15:00 23:00 07:00 Intake Total 200 ml 2067 ml 1056 ml Output Total 1000 ml 1850 ml Balance -800 ml 2067 ml -794 ml SOLANGE ESPOSITO MD Sep 05, 2016 13:01
[2016-09-05 15:00] VITALS: BP 121/76
[2016-09-05 19:43] VITALS: BP 90/58
[2016-09-05] MEDS: INSULIN DETEMIR 300 UNITS/3 ML INSULN.PEN. SQ SCH (20:56)
[2016-09-05] MEDS ORDERED: INSULIN DETEMIR 300 UNITS/3 ML INSULN.PEN. SQ SCH (21:00)
[2016-09-05 23:03] VITALS: BP 98/62
[2016-09-06] VITALS (7 sets, daily range): BP systolic 96–124; BP diastolic 63–122
[2016-09-06] MEDS: INSULIN ASPART 300 UNITS/3 ML INSULN.PEN SQ SCH ×4 (05:18→23:02)
[2016-09-06] MEDS: LEVOTHYROXINE 100 MCG TABLET PO SCH (05:21)
[2016-09-06] MEDS: METOCLOPRAMIDE HCL 10 MG/10 ML SOLUTION. PO SCH ×4 (05:21→20:49)
[2016-09-06 05:25] LABS: BASO # 0.1 x10^3/uL (0.0-0.2); BASO % 1 % (0-3); EOS % 2 % (0-3); HEMATOCRIT 24.8 % (39.0-53.0); HEMOGLOBIN 8.3 g/dL (13.0-17.5); LYMPH % 17 % (24-48); MEAN CORPUSCULAR HEMOGLOBIN 33 pg (25-35); MEAN CORPUSCULAR HGB CONC 33 g/dL (31-37); MEAN CORPUSCULAR VOLUME 100 fL (79-100); MONO % 6 % (0-9); NEUT % 75 % (31-73); PLATELET COUNT 239 x10^3/uL (140-400); RED BLOOD COUNT 2.49 x10^6/uL (4.30-5.70); RED CELL DISTRIBUTION WIDTH 21.2 % (11.5-14.5); WHITE BLOOD COUNT 11.8 x10^3/uL (4.0-11.0)
[2016-09-06 05:47] LABS: CALCIUM 7.9 mg/dL (8.5-10.1); CREATININE 0.8 mg/dL (0.7-1.3); GFR 121.4; POTASSIUM 4.3 mmol/L (3.5-5.1)
[2016-09-06 07:09] LABS: ANISOCYTOSIS MOD; PLT ESTIMATE ADEQUATE (ADEQUATE)
[2016-09-06] MEDS: IPRATRPIUM/ALBUTEROL 0.5/2.5MG 3 ML NEBU. NEB SCH ×4 (08:11→20:37)
[2016-09-06] MEDS: LANSOPRAZOLE 30 MG TAB.RAP.DR PEG SCH (09:00)
[2016-09-06] MEDS: POTASSIUM CHLORIDE 20 MEQ/15 ML ORAL LIQUID. PEG SCH (09:00)
[2016-09-06] MEDS: VITAMIN B COMPLEX TABLET. PO SCH (09:00)
[2016-09-06] MEDS: CHOLECALCIFEROL (VITAMIN D3) 1,000 UNIT TABLET PO SCH (09:00)
[2016-09-06] MEDS: CEFPODOXIME PROXETIL 100 MG TABLET PO SCH ×2 (09:00→20:49)
[2016-09-06] MEDS: ASPIRIN 325 MG TABLET PEG SCH (09:00)
[2016-09-06] MEDS: LEVETIRACETAM 500 MG/5 ML SOLUTION PEG SCH ×2 (09:17→20:49)
[2016-09-06] MEDS ORDERED: IOHEXOL 300 MG/ML 50 ML VIAL. ONE (10:15)
[2016-09-06] MEDS ORDERED: LIDOCAINE 1% / SOD BICARB 8.4% 20 ML VIAL. IJ ONE ×2 (10:16→11:00)
[2016-09-06] MEDS ORDERED: IOHEXOL 300 MG/ML 50 ML VIAL. IART ONE (11:00)
--- NOTE | 2016-09-06 11:14 | PDOC ---
Infectious Disease Note Subjective Subjective Sleepy Fever 102.4 earlier this morning ROS ROS GEN: Denies fevers, chills, sweats HEENT: Denies blurred vision, sore throat CV: Denies chest pain RESP: Denies shortness of air, cough GI: Denies n/v/d NEURO: Denies confusion, dizziness MSK: Denies weakness, joint pain/swelling Vital Sign Vital Signs Vital Signs Date Time Temp Pulse Resp B/P Pulse Ox O2 Delivery O2 Flow Rate FiO2 09/06/16 08:16 97 Nasal Cannula 3.5 09/06/16 07:00 96.7 116 30 123/80 96.7 Physical Exam PHYSICAL EXAM GENERAL: Nonverbal, NAD HEENT: Oral cavity dry. Missing teeth & decay LUNGS: Mild congestion, nonlabored HEART: S1S2 ABD: Soft, No grimace to palpation. PEG : Bowling EXT: No gross edema, no cyanosis [employer]OMC[employer] PRESS FEEDER: Sleepy, decrease attention span, no follow commands SKIN: Dry IV: clean Labs Lab Laboratory Tests Test 09/05/16 11:41 09/05/16 16:10 09/05/16 23:28 09/06/16 04:30 Glucose (Fingerstick) 207mg/dL (70-99) 183mg/dL (70-99) 175mg/dL (70-99) White Blood Count 11.8x10^3/uL (4.0-11.0) Red Blood Count 2.49x10^6/uL (4.30-5.70) Hemoglobin 8.3g/dL (13.0-17.5) Hematocrit 24.8% (39.0-53.0) Mean Corpuscular Volume 100fL (79-100) Mean Corpuscular Hemoglobin 33pg (25-35) Mean Corpuscular Hemoglobin Concent 33g/dL (31-37) Red Cell Distribution Width 21.2% (11.5-14.5) Platelet Count 239x10^3/uL (140-400) Neutrophils (%) (Auto) 75% (31-73) Lymphocytes (%) (Auto) 17% (24-48) Monocytes (%) (Auto) 6% (0-9) Eosinophils (%) (Auto) 2% (0-3) Basophils (%) (Auto) 1% (0-3) Neutrophils # (Auto) 8.9x10^3uL (1.8-7.7) Lymphocytes # (Auto) 2.0x10^3/uL (1.0-4.8) Monocytes # (Auto) 0.7x10^3/uL (0.0-1.1) Eosinophils # (Auto) 0.2x10^3/uL (0.0-0.7) Basophils # (Auto) 0.1x10^3/uL (0.0-0.2) Platelet Estimate Adequate (ADEQUATE) Large Platelets Present Basophilic Stippling Present Anisocytosis Mod Sodium Level 143mmol/L (136-145) Potassium Level 4.3mmol/L (3.5-5.1) Chloride Level 107mmol/L (98-107) Carbon Dioxide Level 31mmol/L (21-32) Anion Gap 5 (6-14) Blood Urea Nitrogen 20mg/dL (8-26) Creatinine 0.8mg/dL (0.7-1.3) Estimated GFR (Cockcroft-Gault) 121.4 Glucose Level 107mg/dL (70-99) Calcium Level 7.9mg/dL (8.5-10.1) Test 09/06/16 05:16 Glucose (Fingerstick) 99mg/dL (70-99) Micro Proteus mirabilis 50,000-100,000 colony forming units per mL ANTIMICROBIAL SUSCEPTIBILITY Final Comment S = Susceptible; I = Intermediate; R = Resistant P = Positive; N = Negative MICS are expressed in micrograms per mL Antibiotic RSLT#1 RSLT#2 RSLT#3 RSLT#4 Amoxicillin/Clavulanic Acid S<=2 Ampicillin S<=2 Cefazolin S =8 Cefepime S<=1 Ceftriaxone S<=1 Cefuroxime S<=1 Cephalothin S =8 Ciprofloxacin S<=0.25 Ertapenem S<=0.5 Gentamicin S<=1 Levofloxacin S<=0.12 Nitrofurantoin R =128 Piperacillin S<=4 Tetracycline R>=16 Tobramycin S<=1 Trimethoprim/Sulfa S<=20 Objective Assessment Fever ? DVT rLeft brachial and Nonocclusive Right Common femoral +/- GI bleed Leukocytosis, improving Severe Sepsis - improved Hyperglycemia -improved Hydronephrosis on U/S - May need nephrostomy tubes per urology Acute Resp failure sp extubation Lactic acidosis MAHAD with h/o hydronephrosis -better Bandemia/leukocytosis - on Hydrocortisone Hematuria - improved UTI - Proteus H/o granulomas GI bleed Plan Plan of Care Cont po Vantin thru 09/07 ID to sign off ANETA SAINZ MD Sep 06, 2016 11:14
--- NOTE | 2016-09-06 11:33 | PDOC ---
Exam Environmental Health Safety Engineer Environmental Health Safety Engineer Mario Yarn Dyer Yarn Dyer Dima Allen Pre-Procedure Diagnosis Pre-Procedure Diagnosis 56 YO male with DVT and with GI bleed---anticoagulation contraindicated. IVC filter requested. Post-Procedure Diagnosis Post-Procedure Diagnosis Same Procedure Performed Procedure Performed Sono/fluoro guided IVC filter insertion Type of Anesthesia Type of Anesthesia Local Estimated Blood Loss EBL: Minimal Condition of Patient Condition of Patient No change. No apparent complication. Disposition Disposition From IR return to [facility]. Bard Beltrami IVC filter can be left in place as a "permanent" filter or can be removed when risk of PE resolves. Full report to follow. RIGOBERTO MELGOZA MD Sep 06, 2016 11:32
--- NOTE | 2016-09-06 12:33 | PDOC ---
PROGRESS NOTES Chief Complaint Chief Complaint CC- Resp failure - was intubated, breathing well now 1. Severe Sepsis, pneumonia 2. PNA, bed bound, , aspiration 3. Bed bound, non verbal, hx down's, and hx CVA 4. Dysphagia, indwelling PEG 5 MAHAD, vasomotor, now recovery phase with marked (critical) hypokalemia, 6. Gap metabolic acidosis, recent vomiting, severe sepsis 7. hypothyroidism 8. down syndrome 9. possible gastroparesis 10. h/o CVA 11. LEFT arm dvt with PICC. 12. rectal bleeding with ac on 09/02 13. anemia, 2/2 chronic dz and rectal bleeding History of Present Illness History of Present Illness Patient was lying in the bed at the time of evaluation, was in no acute distress , was nonverbal, didnot respond to questions, Peg tube feeding is on, RN was present at bedside, code status changed to DNR on this admit, plan of care discussed with RN. Vitals Vitals Vital Signs Date Time Temp Pulse Resp B/P Pulse Ox O2 Delivery O2 Flow Rate FiO2 09/06/16 12:23 Nasal Cannula 3.5 09/06/16 11:16 101.0 112 35 101/63 97 101.0 Physical Exam Physical Exam no follow commands or talk as baseline General: Alert, No acute distress, Other ( awake, ) Heart: Regular rate, No murmurs Lungs: Other ( rhonchi) Abdomen: Soft, No tenderness Extremities: No clubbing Skin: No breakdown, No significant lesion Labs LABS Laboratory Tests Test 09/05/16 16:10 09/05/16 23:28 09/06/16 04:30 09/06/16 05:16 Glucose (Fingerstick) 183mg/dL (70-99) 175mg/dL (70-99) 99mg/dL (70-99) White Blood Count 11.8x10^3/uL (4.0-11.0) Red Blood Count 2.49x10^6/uL (4.30-5.70) Hemoglobin 8.3g/dL (13.0-17.5) Hematocrit 24.8% (39.0-53.0) Mean Corpuscular Volume 100fL (79-100) Mean Corpuscular Hemoglobin 33pg (25-35) Mean Corpuscular Hemoglobin Concent 33g/dL (31-37) Red Cell Distribution Width 21.2% (11.5-14.5) Platelet Count 239x10^3/uL (140-400) Neutrophils (%) (Auto) 75% (31-73) Lymphocytes (%) (Auto) 17% (24-48) Monocytes (%) (Auto) 6% (0-9) Eosinophils (%) (Auto) 2% (0-3) Basophils (%) (Auto) 1% (0-3) Neutrophils # (Auto) 8.9x10^3uL (1.8-7.7) Lymphocytes # (Auto) 2.0x10^3/uL (1.0-4.8) Monocytes # (Auto) 0.7x10^3/uL (0.0-1.1) Eosinophils # (Auto) 0.2x10^3/uL (0.0-0.7) Basophils # (Auto) 0.1x10^3/uL (0.0-0.2) Platelet Estimate Adequate (ADEQUATE) Large Platelets Present Basophilic Stippling Present Anisocytosis Mod Sodium Level 143mmol/L (136-145) Potassium Level 4.3mmol/L (3.5-5.1) Chloride Level 107mmol/L (98-107) Carbon Dioxide Level 31mmol/L (21-32) Anion Gap 5 (6-14) Blood Urea Nitrogen 20mg/dL (8-26) Creatinine 0.8mg/dL (0.7-1.3) Estimated GFR (Cockcroft-Gault) 121.4 Glucose Level 107mg/dL (70-99) Calcium Level 7.9mg/dL (8.5-10.1) Test 09/06/16 11:53 Glucose (Fingerstick) 83mg/dL (70-99) Review of Systems Review of Systems Coarse lung sounds, no SOB, no CP, afebrile, awake, nonverbal baseline, Peg tube for feeding, SCD for DVT prophylaxis Assessment and Plan Assessmemt and Plan Assessment: 1. Severe Sepsis, pneumonia 2. PNA, bed bound, , aspiration 3. Bed bound, non verbal, hx down's, and hx CVA 4. Dysphagia, indwelling PEG 5 MAHAD, vasomotor, now recovery phase with marked (critical) hypokalemia, 6. Gap metabolic acidosis, recent vomiting, severe sepsis 7. hypothyroidism 8. down syndrome 9. possible gastroparesis 10. h/o CVA 11. LEFT arm dvt with PICC. 12. rectal bleeding with ac on 09/02 13. anemia, 2/2 chronic dz and rectal bleeding Plan: 1. F/u with pulm, ID, GI 2. PEG feeding with 9, KUB ruled out obstruction 3. Continue antibiotics per ID recommendations 4. Continue NC 2 L 5. Recheck labs in AM 6. Continue PT/OT 7. Appreciate subspecialities inputs and recommendations Problems: Comment Review of Relevant I have reviewed the following items kassie (where applicable) has been applied. Labs Laboratory Tests Test 09/04/16 16:32 09/04/16 23:20 09/05/16 04:33 09/05/16 11:41 Glucose (Fingerstick) 194mg/dL (70-99) 248mg/dL (70-99) 207mg/dL (70-99) White Blood Count 12.1x10^3/uL (4.0-11.0) Red Blood Count 2.59x10^6/uL (4.30-5.70) Hemoglobin 8.7g/dL (13.0-17.5) Hematocrit 25.8% (39.0-53.0) Mean Corpuscular Volume 100fL (79-100) Mean Corpuscular Hemoglobin 33pg (25-35) Mean Corpuscular Hemoglobin Concent 34g/dL (31-37) Red Cell Distribution Width 20.6% (11.5-14.5) Platelet Count 205x10^3/uL (140-400) Neutrophils (%) (Auto) 81% (31-73) Lymphocytes (%) (Auto) 12% (24-48) Monocytes (%) (Auto) 5% (0-9) Eosinophils (%) (Auto) 1% (0-3) Basophils (%) (Auto) 1% (0-3) Neutrophils # (Auto) 9.8x10^3uL (1.8-7.7) Lymphocytes # (Auto) 1.4x10^3/uL (1.0-4.8) Monocytes # (Auto) 0.6x10^3/uL (0.0-1.1) Eosinophils # (Auto) 0.1x10^3/uL (0.0-0.7) Basophils # (Auto) 0.1x10^3/uL (0.0-0.2) Sodium Level 140mmol/L (136-145) Potassium Level 3.9mmol/L (3.5-5.1) Chloride Level 105mmol/L (98-107) Carbon Dioxide Level 31mmol/L (21-32) Anion Gap 4 (6-14) Blood Urea Nitrogen 19mg/dL (8-26) Creatinine 1.0mg/dL (0.7-1.3) Estimated GFR (Cockcroft-Gault) 93.9 Glucose Level 227mg/dL (70-99) Calcium Level 7.8mg/dL (8.5-10.1) Test 09/05/16 16:10 09/05/16 23:28 09/06/16 04:30 09/06/16 05:16 Glucose (Fingerstick) 183mg/dL (70-99) 175mg/dL (70-99) 99mg/dL (70-99) White Blood Count 11.8x10^3/uL (4.0-11.0) Red Blood Count 2.49x10^6/uL (4.30-5.70) Hemoglobin 8.3g/dL (13.0-17.5) Hematocrit 24.8% (39.0-53.0) Mean Corpuscular Volume 100fL (79-100) Mean Corpuscular Hemoglobin 33pg (25-35) Mean Corpuscular Hemoglobin Concent 33g/dL (31-37) Red Cell Distribution Width 21.2% (11.5-14.5) Platelet Count 239x10^3/uL (140-400) Neutrophils (%) (Auto) 75% (31-73) Lymphocytes (%) (Auto) 17% (24-48) Monocytes (%) (Auto) 6% (0-9) Eosinophils (%) (Auto) 2% (0-3) Basophils (%) (Auto) 1% (0-3) Neutrophils # (Auto) 8.9x10^3uL (1.8-7.7) Lymphocytes # (Auto) 2.0x10^3/uL (1.0-4.8) Monocytes # (Auto) 0.7x10^3/uL (0.0-1.1) Eosinophils # (Auto) 0.2x10^3/uL (0.0-0.7) Basophils # (Auto) 0.1x10^3/uL (0.0-0.2) Platelet Estimate Adequate (ADEQUATE) Large Platelets Present Basophilic Stippling Present Anisocytosis Mod Sodium Level 143mmol/L (136-145) Potassium Level 4.3mmol/L (3.5-5.1) Chloride Level 107mmol/L (98-107) Carbon Dioxide Level 31mmol/L (21-32) Anion Gap 5 (6-14) Blood Urea Nitrogen 20mg/dL (8-26) Creatinine 0.8mg/dL (0.7-1.3) Estimated GFR (Cockcroft-Gault) 121.4 Glucose Level 107mg/dL (70-99) Calcium Level 7.9mg/dL (8.5-10.1) Test 09/06/16 11:53 Glucose (Fingerstick) 83mg/dL (70-99) Laboratory Tests Test 09/05/16 16:10 09/05/16 23:28 09/06/16 04:30 09/06/16 05:16 Glucose (Fingerstick) 183mg/dL (70-99) 175mg/dL (70-99) 99mg/dL (70-99) White Blood Count 11.8x10^3/uL (4.0-11.0) Red Blood Count 2.49x10^6/uL (4.30-5.70) Hemoglobin 8.3g/dL (13.0-17.5) Hematocrit 24.8% (39.0-53.0) Mean Corpuscular Volume 100fL (79-100) Mean Corpuscular Hemoglobin 33pg (25-35) Mean Corpuscular Hemoglobin Concent 33g/dL (31-37) Red Cell Distribution Width 21.2% (11.5-14.5) Platelet Count 239x10^3/uL (140-400) Neutrophils (%) (Auto) 75% (31-73) Lymphocytes (%) (Auto) 17% (24-48) Monocytes (%) (Auto) 6% (0-9) Eosinophils (%) (Auto) 2% (0-3) Basophils (%) (Auto) 1% (0-3) Neutrophils # (Auto) 8.9x10^3uL (1.8-7.7) Lymphocytes # (Auto) 2.0x10^3/uL (1.0-4.8) Monocytes # (Auto) 0.7x10^3/uL (0.0-1.1) Eosinophils # (Auto) 0.2x10^3/uL (0.0-0.7) Basophils # (Auto) 0.1x10^3/uL (0.0-0.2) Platelet Estimate Adequate (ADEQUATE) Large Platelets Present Basophilic Stippling Present Anisocytosis Mod Sodium Level 143mmol/L (136-145) Potassium Level 4.3mmol/L (3.5-5.1) Chloride Level 107mmol/L (98-107) Carbon Dioxide Level 31mmol/L (21-32) Anion Gap 5 (6-14) Blood Urea Nitrogen 20mg/dL (8-26) Creatinine 0.8mg/dL (0.7-1.3) Estimated GFR (Cockcroft-Gault) 121.4 Glucose Level 107mg/dL (70-99) Calcium Level 7.9mg/dL (8.5-10.1) Test 09/06/16 11:53 Glucose (Fingerstick) 83mg/dL (70-99) Microbiology 09/02/16 Blood Culture - Preliminary, Resulted NO GROWTH AFTER 4 DAYS 08/23/16 Urine Culture - Final, Complete 08/23/16 Urine Culture Result 1 (HSANON) - Final, Complete 08/23/16 Antimicrobic Susceptibility - Final, Complete Medications Current Medications Sodium Chloride 1,000 ml @ 1,000 mls/hr 1X ONCE IV Last administered on 11:16; Start 08/23/16 at 11:15; Stop 08/23/16 at 12:14; Status DC Sodium Chloride (Iv Sodium Chloride 0.9% 1000ml Bag) 1,000 ml @ 1,000 mls/hr 1X ONCE IV Last administered on 08/23/16 11:30; Start 08/23/16 at 11:30; Stop 08/23/16 at 12:29; Status DC Vancomycin HCl (Vanco Per Pharmacy) 1 each PRN DAILY PRN MC SEE COMMENTS Last administered on 08/25/16 13:04; Start 08/23/16 at 11:30; Stop 08/26/16 at 08:18; Status DC Piperacillin Sod/ Tazobactam Sod 1 each 1 each PRN DAILY PRN MC SEE COMMENTS; Start 08/23/16 at 11:30; Stop 08/25/16 at 09:54; Status DC Levofloxacin/ Dextrose 100 ml @ 100 mls/hr 1X ONCE IV Last administered on 12:58; Start 08/23/16 at 11:30; Stop 08/23/16 at 12:29; Status DC Piperacillin Sod/ Tazobactam Sod 4.5 gm/Sodium Chloride 100 ml @ 200 mls/hr 1X ONCE IV Last administered on 08/23/16 12:00; Start 08/23/16 at 12:00; Stop 08/23/16 at 12:29; Status DC Vancomycin HCl 1.5 gm/Sodium Chloride 500 ml @ 250 mls/hr 1X ONCE IV Last administered on 08/23/16 12:30; Start 08/23/16 at 12:30; Stop 08/23/16 at 14:29 ; Status DC Sodium Chloride 1,000 ml @ 1,000 mls/hr 1X ONCE IV Last administered on 12:46; Start 08/23/16 at 12:30; Stop 08/23/16 at 13:29; Status DC Piperacillin Sod/ Tazobactam Sod 3.375 gm/Sodium Chloride 50 ml @ 100 mls/hr Q6HRS IV Last administered on 09/01/16 05:29; Start 08/23/16 at 18:00; Stop 09/01/16 at 09:08; Status DC Vancomycin HCl/ Sodium Chloride (Iv Sodium Chloride 0.9% 250ml) 250 ml @ 250 mls/hr Q24H IV ; Start 08/24/16 at 13:00; Status Cancel Vancomycin HCl 1 each 1X ONCE MC ; Start 08/25/16 at 12:30; Stop 08/25/16 at 12: 31; Status DC Labetalol HCl (Normodyne) 10 mg PRN Q2HR PRN IVP HYPERTENSION, SEE COMMENTS; Start 08/23/16 at 15:45 Aspirin (Luis Armando Aspirin) 325 mg DAILY PEG Last administered on 09/05/16 08:55; Start 08/24/16 at 09:00 Bisacodyl (Dulcolax Supp) 10 mg PRN DAILY PRN RC CONSTIPATION Last administered on 08/29/16 15:48; Start 08/23/16 at 15:45 Vitamin D (Vitamin D3) 2,000 unit DAILY PO Last administered on 09/05/16 08:55 ; Start 08/24/16 at 09:00 Levetiracetam (Keppra) 500 mg BID PO ; Start 08/23/16 at 21:00; Stop 08/23/16 at 21:00; Status DC Vitamin B Complex (Hector B) 1 tab DAILY PO Last administered on 09/05/16 08:55 ; Start 08/24/16 at 09:00 Magnesium Hydroxide (Milk Of Magnesia) 2,400 mg PRN DAILY PRN PO CONSTIPATION; Start 08/23/16 at 15:45 Acetaminophen 500 mg 500 mg PRN Q6HRS PRN PO MILD PAIN / TEMP; Start 08/23/16 at 15:45 Levetiracetam/ Sodium Chloride (Keppra/Iv Sodium Chloride 0.9% 100ml) 105 ml @ 400 mls/hr Q12HR IV Last administered on 09/02/16 08:49; Start 08/23/16 at 21: 00; Stop 09/02/16 at 13:11; Status DC Pantoprazole Sodium (Protonix Vial) 40 mg DAILYAC IVP Last administered on 08:36; Start 08/24/16 at 07:30; Stop 09/02/16 at 13:11; Status DC Heparin Sodium (Porcine) 5000 unit 5,000 unit Q8HRS SQ ; Start 08/23/16 at 22:00 ; Stop 08/23/16 at 22:00; Status DC Sodium Bicarbonate/ Dextrose 1,150 ml @ 150 mls/hr Q7H40M IV Last administered on 08/25/16 08:05; Start 08/23/16 at 16:30; Stop 08/25/16 at 10:35; Status DC Sodium Bicarbonate 50 meq 1X ONCE IV Last administered on 08/23/16 16:24; Start 08/23/16 at 16:15; Stop 08/23/16 at 16:17; Status DC Albuterol/ Ipratropium 3 ml 3 ml RTQID NEB Last administered on 09/06/16 12:22 ; Start 08/23/16 at 20:00 Vancomycin HCl 750 mg/Sodium Chloride 250 ml @ 250 mls/hr Q24H IV Last administered on 08/24/16 12:15; Start 08/24/16 at 13:00; Stop 08/25/16 at 12:55 ; Status DC Norepinephrine Bitartrate 8 mg/ Sodium Chloride 258 ml @ 0 mls/hr CONT PRN IV SEE I/O RECORD Last administered on 08/25/16 00:28; Start 08/23/16 at 18:15; Stop 09/01/16 at 09:01; Status DC Sodium Chloride (Iv Sodium Chloride 0.9% 1000ml Bag) 1,000 ml @ 500 mls/hr Q2H IV Last administered on 08/23/16 17:00; Start 08/23/16 at 18:30; Stop at 20:29; Status DC Hydrocortisone Sodium Succinate (Solu-Cortef) 100 mg Q8HRS IV Last administered on 08/26/16 14:54; Start 08/23/16 at 22:30; Stop 08/26/16 at 16:49; Status DC Succinylcholine Chloride (Anectine) 200 mg STK-MED ONCE .ROUTE ; Start 08/24/16 at 04:15; Stop 08/24/16 at 04:16; Status DC Etomidate 20 mg 20 mg STK-MED ONCE IV ; Start 08/24/16 at 04:15; Stop 08/24/16 at 04:16; Status DC Fentanyl Citrate (Fentanyl 600 Mcg/30 ml EXTRUSION OPERATOR) 30 ml @ 0 mls/hr CONT PRN IV PROTOCOL Last administered on 08/30/16 04:54; Start 08/24/16 at 04:45; Stop 04/12 at 08:03; Status DC Fentanyl Citrate (Fentanyl 2ml Vial) 25 mcg PRN Q1HR PRN IV COMM Last administered on 08/29/16 07:44; Start 08/24/16 at 04:45; Stop 08/30/16 at 16:51; Status DC Fentanyl Citrate (Fentanyl 2ml Vial) 50 mcg PRN Q1HR PRN IV COMM; Start at 04:45; Status Cancel Chlorhexidine Gluconate 15 ml 15 ml BID MM Last administered on 08/30/16 08:15 ; Start 08/24/16 at 09:00; Stop 08/30/16 at 22:16; Status DC Midazolam HCl 100 ml @ 0 mls/hr CONT PRN IV PER PROTOCOL Last administered on 10:50; Start 08/24/16 at 04:45; Stop 09/01/16 at 09:02; Status DC Midazolam HCl 100 ml @ As Directed STK-MED ONCE IV ; Start 08/24/16 at 04:52; Stop 08/24/16 at 04:53; Status DC Sodium Chloride 1,000 ml @ 150 mls/hr Q6H40M IV Last administered on 06:13; Start 08/24/16 at 05:45; Stop 08/24/16 at 09:59; Status DC Vasopressin 40 unit/Dextrose 102 ml @ 6 mls/hr 1X ONCE IV Last administered on 08/24/16 06:12; Start 08/24/16 at 06:00; Stop 08/24/16 at 20:00; Status DC Phenylephrine HCl 20 mg/Sodium Chloride 252 ml @ 0 mls/hr CONT PRN IV SEE I/O RECORD Last administered on 08/24/16 07:28; Start 08/24/16 at 05:45; Stop 09/03 at 08:03; Status DC Albumin Human 500 ml @ 125 mls/hr 1X ONCE IV Last administered on 08/24/16 06:20; Start 08/24/16 at 05:45; Stop 08/24/16 at 09:44; Status DC Micafungin Sodium 100 mg/Dextrose 100 ml @ 100 mls/hr Q24H IV Last administered on 08/26/16 09:29; Start 08/24/16 at 09:00; Stop 08/27/16 at 07:37; Status DC Epinephrine HCl/ Sodium Chloride (Adrenalin/Iv Sodium Chloride 0.9% 250ml) 254 ml @ 0 mls/hr CONT PRN IV SEE I/O RECORD; Start 08/24/16 at 07:30; Status Cancel Epinephrine HCl (Adrenalin) 30 mg STK-MED ONCE .ROUTE ; Start 08/23/16 at 12:00 ; Stop 08/24/16 at 10:38; Status DC Epinephrine HCl 4 mg STK-MED ONCE .ROUTE ; Start 08/23/16 at 12:00; Stop at 10:38; Status DC Sodium Bicarbonate 100 meq 100 meq STK-MED ONCE .ROUTE ; Start 08/23/16 at 12:00 ; Stop 08/24/16 at 10:38; Status DC Levothyroxine Sodium 50 mcg/ Sodium Chloride 5 ml @ 100 mls/hr DAILY IVP Last administered on 09/02/16 08:50; Start 08/24/16 at 15:00; Stop 09/02/16 at 13:11; Status DC Phytonadione 10 mg/Sodium Chloride 51 ml @ 102 mls/hr 1X ONCE IV Last administered on 08/24/16 15:14; Start 08/24/16 at 14:30; Stop 08/24/16 at 14:59 ; Status DC Vasopressin/ Dextrose (Vasostrict) 102 ml @ 6 mls/hr CONT PRN IV SEE I/O RECORD Last administered on 08/26/16 05:44; Start 08/24/16 at 18:15; Stop at 18:47; Status DC Acetaminophen 650 mg 650 mg PRN Q6HRS PRN PEG MILD PAIN / TEMP Last administered on 09/04/16 04:07; Start 08/24/16 at 20:45 Levofloxacin/ Dextrose (LEVAQUIN 500mg PREMIX) 100 ml @ 100 mls/hr 1X ONCE IV Last administered on 08/25/16 08:06; Start 08/25/16 at 08:00; Stop 08/25/16 at 08:59; Status DC Insulin Aspart (Novolog) 0-9 UNITS TIDWMEALS SQ Last administered on 08/25/16 17:23; Start 08/25/16 at 08:00; Stop 08/25/16 at 19:32; Status DC Dextrose 12.5 gm PRN Q15MIN PRN IV SEE COMMENTS Last administered on 09/02/16 06:08; Start 08/25/16 at 07:30 Insulin Aspart 10 units 10 units 1X ONCE SQ Last administered on 08/25/16 08: 08; Start 08/25/16 at 08:00; Stop 08/25/16 at 08:01; Status DC Sodium Chloride 1,000 ml @ 50 mls/hr Q20H IV Last administered on 08/31/16 07: 36; Start 08/25/16 at 11:00; Stop 08/31/16 at 18:09; Status DC Potassium Chloride/Sodium Chloride (Iv Sodium Chloride 0.45%) 1,015 ml @ 75 mls /hr 1X ONCE IV Last administered on 08/25/16 10:55; Start 08/25/16 at 11:00; Stop 08/26/16 at 00:31; Status DC Insulin Aspart 10 units 10 units 1X ONCE SQ Last administered on 08/25/16 12: 42; Start 08/25/16 at 12:45; Stop 08/25/16 at 12:46; Status DC Vancomycin HCl/ Sodium Chloride (Iv Sodium Chloride 0.9% 250ml) 250 ml @ 250 mls/hr Q18H IV Last administered on 08/26/16 06:39; Start 08/25/16 at 13:00; Stop 08/26/16 at 08:18; Status DC Insulin Aspart 0-9 UNITS Q6HRS SQ Last administered on 09/05/16 23:32; Start 08/26/16 at 00:00 Levofloxacin/ Dextrose 100 ml @ 100 mls/hr 1X ONCE IV Last administered on 09:28; Start 08/26/16 at 09:30; Stop 08/26/16 at 10:29; Status DC Potassium Chloride/Sodium Chloride (Iv Sodium Chloride 0.45%) 1,015 ml @ 75 mls /hr 1X ONCE IV Last administered on 08/26/16 15:23; Start 08/26/16 at 11:00; Stop 08/27/16 at 00:31; Status DC Hydrocortisone Sodium Succinate 100 mg 100 mg BID IV Last administered on 08:15; Start 08/27/16 at 09:00; Stop 08/30/16 at 09:26; Status DC Amino Acids/ Electrolytes/ Dextrose 1,000 ml @ 80 mls/hr [id number] IV Last administered on 09/02/16 00:11; Start 08/27/16 at 12:30; Stop 09/02/16 at 08:13; Status DC Potassium Chloride (KCl Premix 20meq) 50 ml @ 50 mls/hr 1X ONCE IV Last administered on 08/27/16 15:29; Start 08/27/16 at 12:30; Stop 08/27/16 at 13:29; Status DC Insulin Aspart 15 units 15 units 1X ONCE SQ Last administered on 08/28/16 07: 13; Start 08/28/16 at 07:15; Stop 08/28/16 at 07:16; Status DC Propofol 100 ml @ As Directed STK-MED ONCE IV ; Start 08/29/16 at 16:23; Stop at 16:24; Status DC Propofol (Diprivan) 100 ml @ 0 mls/hr CONT PRN IV SEE I/O RECORD Last administered on 08/29/16 16:30; Start 08/29/16 at 18:00; Stop 09/02/16 at 14:32; Status DC Insulin Aspart 6 units 6 units 1X ONCE SQ Last administered on 08/30/16 08:18 ; Start 08/30/16 at 07:15; Stop 08/30/16 at 07:16; Status DC Potassium Chloride (KCl Premix 20meq) 50 ml @ 50 mls/hr Q1H IV Last administered on 08/30/16 12:00; Start 08/30/16 at 07:30; Stop 08/30/16 at 09:29; Status DC Hydrocortisone Sodium Succinate (Solu-Cortef) 50 mg BID IV Last administered on 08/31/16 09:28; Start 08/30/16 at 21:00; Stop 08/31/16 at 09:41; Status DC Insulin Aspart (Novolog) 10 units 1X ONCE SQ Last administered on 08/31/16 00: 49; Start 08/31/16 at 01:00; Stop 08/31/16 at 01:01; Status DC Hydrocortisone Sodium Succinate (Solu-Cortef) 25 mg BID IV Last administered on 09/01/16 09:27; Start 08/31/16 at 21:00; Stop 09/01/16 at 12:11; Status DC Insulin Aspart (Novolog) 10 units TIDAC SQ Last administered on 08/31/16 16:36 ; Start 08/31/16 at 11:30; Stop 09/01/16 at 08:59; Status DC Insulin Detemir 15 units 15 units DAILY10 SQ Last administered on 08/31/16 11: 59; Start 08/31/16 at 11:30; Stop 09/01/16 at 08:59; Status DC Potassium Chloride (KCl Premix 20meq) 50 ml @ 50 mls/hr Q1H IV Last administered on 08/31/16 16:32; Start 08/31/16 at 12:00; Stop 08/31/16 at 15:59; Status DC Potassium Chloride (KCl Oral Soln) 20 meq 1X ONCE PEG ; Start 08/31/16 at 15:00 ; Stop 08/31/16 at 15:00; Status DC Potassium Chloride (KCl Oral Soln) 20 meq DAILY PEG Last administered on 08:55; Start 09/01/16 at 09:00 Potassium Chloride (KCl Oral Soln) 40 meq 1X ONCE PEG Last administered on 08/31 16:32; Start 08/31/16 at 14:30; Stop 08/31/16 at 14:31; Status DC Insulin Aspart (Novolog) 10 units Q6HRS SQ Last administered on 09/02/16 00:23 ; Start 09/01/16 at 12:00; Stop 09/02/16 at 08:13; Status DC Insulin Detemir (Levemir) 20 units QHS SQ Last administered on 09/01/16 21:00; Start 09/01/16 at 21:00; Stop 09/02/16 at 08:13; Status DC Cefpodoxime Proxetil (Vantin) 100 mg BID PO Last administered on 09/05/16 20: 52; Start 09/01/16 at 10:00 Metoclopramide HCl (Reglan) 5 mg QIDACHS IV Last administered on 09/02/16 12:41 ; Start 09/01/16 at 11:30; Stop 09/02/16 at 13:11; Status DC Insulin Aspart (Novolog) 5 units Q6HRS SQ ; Start 09/02/16 at 12:00; Stop at 12:10; Status DC Insulin Detemir (Levemir) 10 units QHS SQ Last administered on 09/03/16 21:09 ; Start 09/02/16 at 21:00; Stop 09/04/16 at 10:14; Status DC Furosemide (Lasix) 40 mg 1X ONCE IVP Last administered on 09/02/16 08:47; Start 09/02/16 at 08:15; Stop 09/02/16 at 08:23; Status DC Levetiracetam (Keppra) 500 mg BID PEG Last administered on 09/06/16 09:17; Start 09/02/16 at 21:00 Pantoprazole Sodium (Protonix) 40 mg DAILYAC PO ; Start 09/03/16 at 07:30; Stop 09/03/16 at 07:30; Status DC Metoclopramide HCl (Reglan) 10 mg QIDACHS PO Last administered on 09/06/16 05: 21; Start 09/02/16 at 16:30 Levothyroxine Sodium (Synthroid) 100 mcg DAILY07 PO Last administered on 05:21; Start 09/03/16 at 07:00 Warfarin Sodium (Coumadin) 5 mg DAILY16 PO Last administered on 09/02/16 15:52 ; Start 09/02/16 at 16:00; Stop 09/03/16 at 08:31; Status DC Warfarin Sodium (Coumadin Per Pharmacy) 1 each PRN DAILY PRN MC SEE COMMENTS; Start 09/02/16 at 13:15; Stop 09/03/16 at 09:09; Status DC Lansoprazole (Prevacid) 30 mg DAILY PEG Last administered on 09/05/16 08:55; Start 09/03/16 at 09:00 Enoxaparin Sodium (Lovenox 60mg Syringe) 60 mg Q12HR SQ Last administered on 21:48; Start 09/02/16 at 15:00; Stop 09/03/16 at 08:31; Status DC Furosemide (Lasix) 40 mg 1X ONCE IVP Last administered on 09/03/16 14:15; Start 09/03/16 at 10:15; Stop 09/03/16 at 10:16; Status DC Info (Anti-Coagulation Monitoring By Pharmacy) 1 each PRN DAILY PRN MC SEE COMMENTS Last administered on 09/03/16 14:14; Start 09/03/16 at 14:00; Stop 05/13 at 07:59; Status DC Insulin Detemir (Levemir) 15 units QHS SQ Last administered on 09/04/16 20:47 ; Start 09/04/16 at 21:00; Stop 09/05/16 at 08:39; Status DC Insulin Detemir (Levemir) 18 units QHS SQ ; Start 09/05/16 at 21:00; Stop at 21:00; Status DC Insulin Detemir (Levemir) 20 units QHS SQ Last administered on 09/05/16 20:56 ; Start 09/05/16 at 21:00 Iohexol (Omnipaque 300 Mg/ml) 50 ml STK-MED ONCE .ROUTE ; Start 09/06/16 at 10: 15; Stop 09/06/16 at 10:16; Status DC Lidocaine/Sodium Bicarbonate 20 ml 20 ml STK-MED ONCE IJ ; Start 09/06/16 at 10: 16; Stop 09/06/16 at 10:17; Status DC Heparin Sodium/ Sodium Chloride 500 ml @ As Directed STK-MED ONCE .ROUTE ; Start 09/06/16 at 10:16; Stop 09/06/16 at 10:17; Status DC Heparin Sodium/ Sodium Chloride 1,000 unit 1X ONCE IART Last administered on 11:15; Start 09/06/16 at 11:00; Stop 09/06/16 at 11:03; Status DC Lidocaine/Sodium Bicarbonate (Buffered Lidocaine 1%) 20 ml 1X ONCE IJ Last administered on 09/06/16 11:15; Start 09/06/16 at 11:00; Stop 09/06/16 at 11:03 ; Status DC Iohexol (Omnipaque 300 Mg/ml) 50 ml 1X ONCE IART Last administered on 11:15; Start 09/06/16 at 11:00; Stop 09/06/16 at 11:03; Status DC Active Scripts Active Reported Milk Of Magnesia (Magnesium Hydroxide) 2,400 Mg/10 Ml Oral.susp 2,400 Mg PO DAILY PRN Dulcolax (Bisacodyl) 10 Mg Supp.rect 10 Mg RC PRN DAILY PRN Aspirin 325 Mg Tablet 1 Tab PEG DAILY Tylenol (Acetaminophen) 325 Mg Tablet 2 Tab PO PRN Q6HRS PRN Vitamin B Complex 1 Each Tablet 1 Tab PO DAILY Vitamin D3 (Cholecalciferol (Vitamin D3)) 1,000 Unit Tablet 2,000 Unit PO DAILY Keppra (Levetiracetam) 500 Mg Tablet 500 Mg PO BID Vitals/I & O Vital Sign - Last 24 Hours 09/05/16 09/05/16 09/05/16 09/05/16 15:00 15:21 19:25 19:25 Temp 98.7 98.7 Pulse 114 Resp 22 B/P 121/76 Pulse Ox 94 99 O2 Delivery Nasal Cannula Nasal Cannula Nasal Cannula Nasal Cannula O2 Flow Rate 3.0 3.0 3.0 3.0 09/05/16 09/05/16 09/06/16 09/06/16 19:43 23:03 03:08 07:00 Temp 98.1 97.3 98.4 96.7 98.1 97.3 98.4 96.7 Pulse 111 109 110 116 Resp 22 20 22 30 B/P 90/58 98/62 109/74 123/80 Pulse Ox 98 97 98 97 O2 Delivery Nasal Cannula Nasal Cannula Nasal Cannula Nasal Cannula O2 Flow Rate 3.0 3.0 3.0 3.0 09/06/16 09/06/16 09/06/16 09/06/16 08:00 08:16 11:00 11:16 Temp 98.8 101.0 98.8 101.0 Pulse 117 112 Resp 30 35 B/P 122/122 101/63 Pulse Ox 97 99 97 O2 Delivery Nasal Cannula Nasal Cannula Nasal Cannula Nasal Cannula O2 Flow Rate 3.5 3.5 3.0 3.5 09/06/16 12:23 O2 Delivery Nasal Cannula O2 Flow Rate 3.5 Intake and Output 09/05/16 09/05/16 09/06/16 15:00 23:00 07:00 Intake Total 200 ml 200 ml 2149 ml Output Total 2000 ml 750 ml 1750 ml Balance -1800 ml -550 ml 399 ml JAMEE GUZMAN III DO Sep 06, 2016 12:33
--- NOTE | 2016-09-06 12:40 | PDOC ---
Objective: Objective: Per RN - no further bleeding. Per family - wants to DC, feels he will do better at home. Vital Signs: Vital Signs Date Time Temp Pulse Resp B/P Pulse Ox O2 Delivery O2 Flow Rate FiO2 09/06/16 12:23 Nasal Cannula 3.5 09/06/16 11:16 101.0 112 35 101/63 97 101.0 Labs: Laboratory Tests Test 09/05/16 16:10 09/05/16 23:28 09/06/16 05:16 09/06/16 11:53 Glucose (Fingerstick) 183mg/dL (70-99) 175mg/dL (70-99) 99mg/dL (70-99) 83mg/dL (70-99) PE: GEN: NAD LUNGS: just received breathing treatment, coarse anteriorly HEART: tachycardic ABD: S/ND/NT, PEG in place NEURO/PSYCH: non-verbal A/P: UE DVT -IVC filter placed today Hematochezia - no recurrence PEG in place -tolerating feeds w/ Reglan, PPI Fever, leukocytosis -on atbx -- Stable GI-fernández. LUCIO YODER Sep 06, 2016 12:40
--- NOTE | 2016-09-06 12:48 | PDOC2 ---
PALLIATIVE CARE Palliative Care Note Palliative Care Consult requested by Dr. Nina to address goals of care Diagnosis; Pulmonary Infiltrates; MAHAD; Sepsis; Respiratory failure Patient scheduled for IVC filter today Family adamant about no discussion regarding goals of care discussion. PC signed off HEATH DEL VALLE Sep 06, 2016 12:48
--- NOTE | 2016-09-06 15:55 | PDOC ---
PULMONARY PROGRESS NOTES Subjective extubated 08/30 no soa resolved fever Vitals Vital Signs Date Time Temp Pulse Resp B/P Pulse Ox O2 Delivery O2 Flow Rate FiO2 09/06/16 15:44 Nasal Cannula 3.5 09/06/16 15:00 98.6 119 30 107/66 96 98.6 General: No acute distress Lungs: Other ( rhonchi) Cardiovascular: S1, S2 Abdomen: Soft Extremities: Other (swelling left upper, lower extremity edema) Skin: Warm Labs Laboratory Tests Test 09/04/16 16:32 09/04/16 23:20 09/05/16 04:33 09/05/16 11:41 Glucose (Fingerstick) 194mg/dL (70-99) 248mg/dL (70-99) 207mg/dL (70-99) White Blood Count 12.1x10^3/uL (4.0-11.0) Red Blood Count 2.59x10^6/uL (4.30-5.70) Hemoglobin 8.7g/dL (13.0-17.5) Hematocrit 25.8% (39.0-53.0) Mean Corpuscular Volume 100fL (79-100) Mean Corpuscular Hemoglobin 33pg (25-35) Mean Corpuscular Hemoglobin Concent 34g/dL (31-37) Red Cell Distribution Width 20.6% (11.5-14.5) Platelet Count 205x10^3/uL (140-400) Neutrophils (%) (Auto) 81% (31-73) Lymphocytes (%) (Auto) 12% (24-48) Monocytes (%) (Auto) 5% (0-9) Eosinophils (%) (Auto) 1% (0-3) Basophils (%) (Auto) 1% (0-3) Neutrophils # (Auto) 9.8x10^3uL (1.8-7.7) Lymphocytes # (Auto) 1.4x10^3/uL (1.0-4.8) Monocytes # (Auto) 0.6x10^3/uL (0.0-1.1) Eosinophils # (Auto) 0.1x10^3/uL (0.0-0.7) Basophils # (Auto) 0.1x10^3/uL (0.0-0.2) Sodium Level 140mmol/L (136-145) Potassium Level 3.9mmol/L (3.5-5.1) Chloride Level 105mmol/L (98-107) Carbon Dioxide Level 31mmol/L (21-32) Anion Gap 4 (6-14) Blood Urea Nitrogen 19mg/dL (8-26) Creatinine 1.0mg/dL (0.7-1.3) Estimated GFR (Cockcroft-Gault) 93.9 Glucose Level 227mg/dL (70-99) Calcium Level 7.8mg/dL (8.5-10.1) Test 09/05/16 16:10 09/05/16 23:28 09/06/16 04:30 09/06/16 05:16 Glucose (Fingerstick) 183mg/dL (70-99) 175mg/dL (70-99) 99mg/dL (70-99) White Blood Count 11.8x10^3/uL (4.0-11.0) Red Blood Count 2.49x10^6/uL (4.30-5.70) Hemoglobin 8.3g/dL (13.0-17.5) Hematocrit 24.8% (39.0-53.0) Mean Corpuscular Volume 100fL (79-100) Mean Corpuscular Hemoglobin 33pg (25-35) Mean Corpuscular Hemoglobin Concent 33g/dL (31-37) Red Cell Distribution Width 21.2% (11.5-14.5) Platelet Count 239x10^3/uL (140-400) Neutrophils (%) (Auto) 75% (31-73) Lymphocytes (%) (Auto) 17% (24-48) Monocytes (%) (Auto) 6% (0-9) Eosinophils (%) (Auto) 2% (0-3) Basophils (%) (Auto) 1% (0-3) Neutrophils # (Auto) 8.9x10^3uL (1.8-7.7) Lymphocytes # (Auto) 2.0x10^3/uL (1.0-4.8) Monocytes # (Auto) 0.7x10^3/uL (0.0-1.1) Eosinophils # (Auto) 0.2x10^3/uL (0.0-0.7) Basophils # (Auto) 0.1x10^3/uL (0.0-0.2) Platelet Estimate Adequate (ADEQUATE) Large Platelets Present Basophilic Stippling Present Anisocytosis Mod Sodium Level 143mmol/L (136-145) Potassium Level 4.3mmol/L (3.5-5.1) Chloride Level 107mmol/L (98-107) Carbon Dioxide Level 31mmol/L (21-32) Anion Gap 5 (6-14) Blood Urea Nitrogen 20mg/dL (8-26) Creatinine 0.8mg/dL (0.7-1.3) Estimated GFR (Cockcroft-Gault) 121.4 Glucose Level 107mg/dL (70-99) Calcium Level 7.9mg/dL (8.5-10.1) Test 09/06/16 11:53 Glucose (Fingerstick) 83mg/dL (70-99) Laboratory Tests Test 09/05/16 16:10 09/05/16 23:28 09/06/16 04:30 09/06/16 05:16 Glucose (Fingerstick) 183mg/dL (70-99) 175mg/dL (70-99) 99mg/dL (70-99) White Blood Count 11.8x10^3/uL (4.0-11.0) Red Blood Count 2.49x10^6/uL (4.30-5.70) Hemoglobin 8.3g/dL (13.0-17.5) Hematocrit 24.8% (39.0-53.0) Mean Corpuscular Volume 100fL (79-100) Mean Corpuscular Hemoglobin 33pg (25-35) Mean Corpuscular Hemoglobin Concent 33g/dL (31-37) Red Cell Distribution Width 21.2% (11.5-14.5) Platelet Count 239x10^3/uL (140-400) Neutrophils (%) (Auto) 75% (31-73) Lymphocytes (%) (Auto) 17% (24-48) Monocytes (%) (Auto) 6% (0-9) Eosinophils (%) (Auto) 2% (0-3) Basophils (%) (Auto) 1% (0-3) Neutrophils # (Auto) 8.9x10^3uL (1.8-7.7) Lymphocytes # (Auto) 2.0x10^3/uL (1.0-4.8) Monocytes # (Auto) 0.7x10^3/uL (0.0-1.1) Eosinophils # (Auto) 0.2x10^3/uL (0.0-0.7) Basophils # (Auto) 0.1x10^3/uL (0.0-0.2) Platelet Estimate Adequate (ADEQUATE) Large Platelets Present Basophilic Stippling Present Anisocytosis Mod Sodium Level 143mmol/L (136-145) Potassium Level 4.3mmol/L (3.5-5.1) Chloride Level 107mmol/L (98-107) Carbon Dioxide Level 31mmol/L (21-32) Anion Gap 5 (6-14) Blood Urea Nitrogen 20mg/dL (8-26) Creatinine 0.8mg/dL (0.7-1.3) Estimated GFR (Cockcroft-Gault) 121.4 Glucose Level 107mg/dL (70-99) Calcium Level 7.9mg/dL (8.5-10.1) Test 09/06/16 11:53 Glucose (Fingerstick) 83mg/dL (70-99) Medications Active Scripts Medications Dose Route/Sig Days Date Category Milk Of Magnesia (Magnesium Hydroxide) 2,400 Mg/10 Ml Oral.susp 2,400 Mg PO DAILY PRN 08/21/15 Reported Dulcolax (Bisacodyl) 10 Mg Supp.rect 10 Mg RC PRN DAILY PRN 08/21/15 Reported Aspirin 325 Mg Tablet 1 Tab PEG DAILY 08/02/15 Reported Tylenol (Acetaminophen) 325 Mg Tablet 2 Tab PO PRN Q6HRS PRN 08/02/15 Reported Vitamin B Complex 1 Each Tablet 1 Tab PO DAILY 07/25/15 Reported Vitamin D3 (Cholecalciferol (Vitamin D3)) 1,000 Unit Tablet 2,000 Unit PO DAILY 07/25/15 Reported Keppra (Levetiracetam) 500 Mg Tablet 500 Mg PO BID 07/25/15 Reported Impression . 1. Acute hypoxic respiratory failure secondary septic shock, resolved, extubated 08/30 2. Septic shock cultures so far negative, resolved 3. Persistent abnormal chest x-ray with bilateral infiltrate 4. Acute severe metabolic acidosis with severe lactic acidosis secondary to sepsis/septic shock. MAHAD contributing to metabolic acidosis, improved 5. Hematuria 6. Urinary tract infection. 7. Coagulopathy, most likely related to early disseminated intravascular coagulation. 8. Underlying Down's syndrome 9. Dysphagia S/P PEG 10. New fever, ID following, left upper DVT 11. left upper DVT (brachial and axillary), non-occlusive Right lower extremity DVT 12. GI bleed Plan . nasal canula off coumadin due to GI bleed/ GI following. Not the best candidate for skilled nursing OP AC. PICC removed S/P IVC TF OFF steroids lasix follow ID recommendations ERINN HORN MD Sep 06, 2016 15:55
[2016-09-06] MEDS ORDERED: VITS A & D/LANOLIN TOPICAL OINTMENT 56GM TUBE. TP PRN (18:02)
[2016-09-06] MEDS: INSULIN DETEMIR 300 UNITS/3 ML INSULN.PEN. SQ SCH (20:53)
[2016-09-06] MEDS: ACETAMINOPHEN 650 MG/20.3 ML SOLUTION. PEG PRN (22:14)
[2016-09-07] VITALS (7 sets, daily range): BP systolic 89–128; BP diastolic 64–78
[2016-09-07 05:12] LABS: BASO # 0.1 x10^3/uL (0.0-0.2); BASO % 1 % (0-3); EOS % 1 % (0-3); HEMOGLOBIN 7.5 g/dL (13.0-17.5); LYMPH # 1.8 x10^3/uL (1.0-4.8); LYMPH % 18 % (24-48); MEAN CORPUSCULAR HEMOGLOBIN 33 pg (25-35); MEAN CORPUSCULAR HGB CONC 33 g/dL (31-37); MEAN CORPUSCULAR VOLUME 101 fL (79-100); MONO % 7 % (0-9); NEUT % 74 % (31-73); PLATELET COUNT 257 x10^3/uL (140-400); RED BLOOD COUNT 2.28 x10^6/uL (4.30-5.70); RED CELL DISTRIBUTION WIDTH 21.7 % (11.5-14.5)
[2016-09-07] MEDS: LEVOTHYROXINE 100 MCG TABLET PO SCH (05:30)
[2016-09-07] MEDS: INSULIN ASPART 300 UNITS/3 ML INSULN.PEN SQ SCH ×3 (05:32→17:26)
[2016-09-07 05:39] LABS: CALCIUM 8.1 mg/dL (8.5-10.1); CREATININE 0.9 mg/dL (0.7-1.3); POTASSIUM 3.8 mmol/L (3.5-5.1)
--- NOTE | 2016-09-07 06:57 | RAD ---
Ultrasound guided IVC gram Fluoro guided IVC filter placement Indication: 56-year-old male with DVT and GI bleed. Anticoagulation is contraindicated. Inferior vena cava filter insertion has been requested. Fluoro time: 1.7 minutes Kerma-Area Product: 45 Gycm2 Anesthesia: Local only Contrast material: 40 cc Omnipaque 300 Sterility: All elements of maximal sterile barrier technique, including the use of a cap, mask, sterile gown, sterile gloves, large sterile sheet, appropriate hand hygiene, and 2% chlorhexidine for cutaneous antisepsis (or acceptable alternative antiseptic per current guidelines) were utilized. Procedure. Informed consent was obtained from the patient's mother. He was placed supine on the angiography table. Preliminary ultrasound evaluation of right neck revealed wide patency of right internal jugular vein, which was documented with a single hard copy ultrasound image. Right neck was then prepped and draped in the usual sterile fashion, utilizing all elements of maximal sterile barrier technique, as described above. Using aseptic technique, local anesthesia, direct ultrasound guidance, and the micropuncture system, successful percutaneous entry was achieved into right internal jugular vein. The right IJ venostomy tract was then dilated, and a long 8.4 [place] sheath was successfully advanced into lower IVC. Omnipaque 300 was injected and IVC gram DSA images were obtained. These images revealed normal caliber of IVC, without stricture and without intraluminal thrombus. Level of renal veins was well seen. There was no contraindication to IVC filter placement. Therefore, using aseptic technique and fluoroscopic guidance, a Bard Troup IVC filter was advanced through the indwelling long 8.4 [place] sheath, and was successfully deployed within infrarenal IVC. Completion IVC gram DSA images confirmed satisfactory orientation of, and satisfactory position of the IVC filter, between renal veins and cava bifurcation. Patient tolerated the procedure well, without apparent complication. The right IJ sheath was removed and hemostasis was achieved with manual pressure. Impression: 1. Successful, uneventful sono guided IVC gram, without contraindication to IVC filter placement. 2. Successful, uneventful fluoro guided placement of infrarenal Bard Troup retrievable IVC filter, as described. This filter can be left in place as a "permanent" IVC filter, or can be retrieved once risk of pulmonary embolus has resolved, at referring physician's discretion..
[2016-09-07] MEDS: METOCLOPRAMIDE HCL 10 MG/10 ML SOLUTION. PO SCH ×4 (07:55→21:32)
[2016-09-07] MEDS: IPRATRPIUM/ALBUTEROL 0.5/2.5MG 3 ML NEBU. NEB SCH ×4 (08:04→19:38)
[2016-09-07] MEDS: LEVETIRACETAM 500 MG/5 ML SOLUTION PEG SCH ×2 (08:50→22:36)
[2016-09-07] MEDS: CHOLECALCIFEROL (VITAMIN D3) 1,000 UNIT TABLET PO SCH (08:50)
[2016-09-07] MEDS: ASPIRIN 325 MG TABLET PEG SCH (08:50)
[2016-09-07] MEDS: POTASSIUM CHLORIDE 20 MEQ/15 ML ORAL LIQUID. PEG SCH (08:50)
[2016-09-07] MEDS: VITAMIN B COMPLEX TABLET. PO SCH (08:50)
[2016-09-07] MEDS: CEFPODOXIME PROXETIL 100 MG TABLET PO SCH ×2 (08:51→21:32)
[2016-09-07] MEDS: LANSOPRAZOLE 30 MG TAB.RAP.DR PEG SCH (08:51)
--- NOTE | 2016-09-07 09:47 | PDOC ---
PULMONARY PROGRESS NOTES Subjective extubated 08/30 Vitals Vital Signs Date Time Temp Pulse Resp B/P Pulse Ox O2 Delivery O2 Flow Rate FiO2 09/07/16 08:05 91 Nasal Cannula 2.0 09/07/16 07:00 97.8 98 20 128/77 97.8 General: No acute distress Lungs: Clear Cardiovascular: S1, S2 Abdomen: Soft Extremities: Other (swelling left upper, lower extremity edema) Skin: Warm Labs Laboratory Tests Test 09/05/16 11:41 09/05/16 16:10 09/05/16 23:28 09/06/16 04:30 Glucose (Fingerstick) 207mg/dL (70-99) 183mg/dL (70-99) 175mg/dL (70-99) White Blood Count 11.8x10^3/uL (4.0-11.0) Red Blood Count 2.49x10^6/uL (4.30-5.70) Hemoglobin 8.3g/dL (13.0-17.5) Hematocrit 24.8% (39.0-53.0) Mean Corpuscular Volume 100fL (79-100) Mean Corpuscular Hemoglobin 33pg (25-35) Mean Corpuscular Hemoglobin Concent 33g/dL (31-37) Red Cell Distribution Width 21.2% (11.5-14.5) Platelet Count 239x10^3/uL (140-400) Neutrophils (%) (Auto) 75% (31-73) Lymphocytes (%) (Auto) 17% (24-48) Monocytes (%) (Auto) 6% (0-9) Eosinophils (%) (Auto) 2% (0-3) Basophils (%) (Auto) 1% (0-3) Neutrophils # (Auto) 8.9x10^3uL (1.8-7.7) Lymphocytes # (Auto) 2.0x10^3/uL (1.0-4.8) Monocytes # (Auto) 0.7x10^3/uL (0.0-1.1) Eosinophils # (Auto) 0.2x10^3/uL (0.0-0.7) Basophils # (Auto) 0.1x10^3/uL (0.0-0.2) Platelet Estimate Adequate (ADEQUATE) Large Platelets Present Basophilic Stippling Present Anisocytosis Mod Sodium Level 143mmol/L (136-145) Potassium Level 4.3mmol/L (3.5-5.1) Chloride Level 107mmol/L (98-107) Carbon Dioxide Level 31mmol/L (21-32) Anion Gap 5 (6-14) Blood Urea Nitrogen 20mg/dL (8-26) Creatinine 0.8mg/dL (0.7-1.3) Estimated GFR (Cockcroft-Gault) 121.4 Glucose Level 107mg/dL (70-99) Calcium Level 7.9mg/dL (8.5-10.1) Test 09/06/16 05:16 09/06/16 11:53 09/06/16 15:55 09/06/16 22:56 Glucose (Fingerstick) 99mg/dL (70-99) 83mg/dL (70-99) 113mg/dL (70-99) 219mg/dL (70-99) Test 09/07/16 04:20 White Blood Count 10.0x10^3/uL (4.0-11.0) Red Blood Count 2.28x10^6/uL (4.30-5.70) Hemoglobin 7.5g/dL (13.0-17.5) Hematocrit 23.0% (39.0-53.0) Mean Corpuscular Volume 101fL (79-100) Mean Corpuscular Hemoglobin 33pg (25-35) Mean Corpuscular Hemoglobin Concent 33g/dL (31-37) Red Cell Distribution Width 21.7% (11.5-14.5) Platelet Count 257x10^3/uL (140-400) Neutrophils (%) (Auto) 74% (31-73) Lymphocytes (%) (Auto) 18% (24-48) Monocytes (%) (Auto) 7% (0-9) Eosinophils (%) (Auto) 1% (0-3) Basophils (%) (Auto) 1% (0-3) Neutrophils # (Auto) 7.3x10^3uL (1.8-7.7) Lymphocytes # (Auto) 1.8x10^3/uL (1.0-4.8) Monocytes # (Auto) 0.6x10^3/uL (0.0-1.1) Eosinophils # (Auto) 0.1x10^3/uL (0.0-0.7) Basophils # (Auto) 0.1x10^3/uL (0.0-0.2) Sodium Level 141mmol/L (136-145) Potassium Level 3.8mmol/L (3.5-5.1) Chloride Level 106mmol/L (98-107) Carbon Dioxide Level 32mmol/L (21-32) Anion Gap 3 (6-14) Blood Urea Nitrogen 20mg/dL (8-26) Creatinine 0.9mg/dL (0.7-1.3) Estimated GFR (Cockcroft-Gault) 106.0 Glucose Level 180mg/dL (70-99) Calcium Level 8.1mg/dL (8.5-10.1) Laboratory Tests Test 09/06/16 11:53 09/06/16 15:55 09/06/16 22:56 09/07/16 04:20 Glucose (Fingerstick) 83mg/dL (70-99) 113mg/dL (70-99) 219mg/dL (70-99) White Blood Count 10.0x10^3/uL (4.0-11.0) Red Blood Count 2.28x10^6/uL (4.30-5.70) Hemoglobin 7.5g/dL (13.0-17.5) Hematocrit 23.0% (39.0-53.0) Mean Corpuscular Volume 101fL (79-100) Mean Corpuscular Hemoglobin 33pg (25-35) Mean Corpuscular Hemoglobin Concent 33g/dL (31-37) Red Cell Distribution Width 21.7% (11.5-14.5) Platelet Count 257x10^3/uL (140-400) Neutrophils (%) (Auto) 74% (31-73) Lymphocytes (%) (Auto) 18% (24-48) Monocytes (%) (Auto) 7% (0-9) Eosinophils (%) (Auto) 1% (0-3) Basophils (%) (Auto) 1% (0-3) Neutrophils # (Auto) 7.3x10^3uL (1.8-7.7) Lymphocytes # (Auto) 1.8x10^3/uL (1.0-4.8) Monocytes # (Auto) 0.6x10^3/uL (0.0-1.1) Eosinophils # (Auto) 0.1x10^3/uL (0.0-0.7) Basophils # (Auto) 0.1x10^3/uL (0.0-0.2) Sodium Level 141mmol/L (136-145) Potassium Level 3.8mmol/L (3.5-5.1) Chloride Level 106mmol/L (98-107) Carbon Dioxide Level 32mmol/L (21-32) Anion Gap 3 (6-14) Blood Urea Nitrogen 20mg/dL (8-26) Creatinine 0.9mg/dL (0.7-1.3) Estimated GFR (Cockcroft-Gault) 106.0 Glucose Level 180mg/dL (70-99) Calcium Level 8.1mg/dL (8.5-10.1) Medications Active Scripts Medications Dose Route/Sig Days Date Category Milk Of Magnesia (Magnesium Hydroxide) 2,400 Mg/10 Ml Oral.susp 2,400 Mg PO DAILY PRN 08/21/15 Reported Dulcolax (Bisacodyl) 10 Mg Supp.rect 10 Mg RC PRN DAILY PRN 08/21/15 Reported Aspirin 325 Mg Tablet 1 Tab PEG DAILY 08/02/15 Reported Tylenol (Acetaminophen) 325 Mg Tablet 2 Tab PO PRN Q6HRS PRN 08/02/15 Reported Vitamin B Complex 1 Each Tablet 1 Tab PO DAILY 07/25/15 Reported Vitamin D3 (Cholecalciferol (Vitamin D3)) 1,000 Unit Tablet 2,000 Unit PO DAILY 07/25/15 Reported Keppra (Levetiracetam) 500 Mg Tablet 500 Mg PO BID 07/25/15 Reported Impression . 1. Acute hypoxic respiratory failure secondary septic shock, resolved, extubated 08/30 2. Septic shock cultures so far negative, resolved 3. Persistent abnormal chest x-ray with bilateral infiltrate 4. Acute severe metabolic acidosis with severe lactic acidosis secondary to sepsis/septic shock. MAHAD contributing to metabolic acidosis, improved 5. Hematuria 6. Urinary tract infection. 7. Coagulopathy, most likely related to early disseminated intravascular coagulation. 8. Underlying Down's syndrome 9. Dysphagia S/P PEG 10. New fever, ID following, left upper DVT 11. left upper DVT (brachial and axillary), non-occlusive Right lower extremity DVT 12. GI bleed Plan . ok to d/c nasal canula off coumadin due to GI bleed/ GI following. 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 PICC removed S/P IVC TF OFF steroids ERINN Caceres MD Sep 07, 2016 09:47
--- NOTE | 2016-09-07 11:57 | PDOC ---
Objective: Objective: No GI concerns per RN. Vital Signs: Vital Signs Date Time Temp Pulse Resp B/P Pulse Ox O2 Delivery O2 Flow Rate FiO2 09/07/16 11:08 Nasal Cannula 3.0 09/07/16 11:00 97.9 92 20 89/64 99 97.9 Labs: Laboratory Tests Test 09/06/16 15:55 09/06/16 22:56 09/07/16 04:20 09/07/16 11:45 Glucose (Fingerstick) 113mg/dL 219mg/dL 175mg/dL White Blood Count 10.0x10^3/uL Red Blood Count 2.28x10^6/uL Hemoglobin 7.5g/dL Hematocrit 23.0% Mean Corpuscular Volume 101fL Mean Corpuscular Hemoglobin 33pg Mean Corpuscular Hemoglobin Concent 33g/dL Red Cell Distribution Width 21.7% Platelet Count 257x10^3/uL Neutrophils (%) (Auto) 74% Lymphocytes (%) (Auto) 18% Monocytes (%) (Auto) 7% Eosinophils (%) (Auto) 1% Basophils (%) (Auto) 1% Neutrophils # (Auto) 7.3x10^3uL Lymphocytes # (Auto) 1.8x10^3/uL Monocytes # (Auto) 0.6x10^3/uL Eosinophils # (Auto) 0.1x10^3/uL Basophils # (Auto) 0.1x10^3/uL Sodium Level 141mmol/L Potassium Level 3.8mmol/L Chloride Level 106mmol/L Carbon Dioxide Level 32mmol/L Anion Gap 3 Blood Urea Nitrogen 20mg/dL Creatinine 0.9mg/dL Estimated GFR (Cockcroft-Gault) 106.0 Glucose Level 180mg/dL Calcium Level 8.1mg/dL PE: GEN: NAD LUNGS: coarse HEART: tachycardic ABD: NABS, S/ND/NT, PEG in place NEURO/PSYCH: non-verbal A/P: Hematochezia - no recurrence PEG in place -tolerating feeds w/ Reglan, PPI -- Stable GI-fernández. LUCIO YODER Sep 07, 2016 11:57
--- NOTE | 2016-09-07 11:57 | PDOC ---
PROGRESS NOTES Chief Complaint Chief Complaint CC- Resp failure - was intubated, breathing well now 1. Severe Sepsis, pneumonia 2. PNA, bed bound, , aspiration 3. Bed bound, non verbal, hx down's, and hx CVA 4. Dysphagia, indwelling PEG 5 MAHAD, vasomotor, now recovery phase with marked (critical) hypokalemia, 6. Gap metabolic acidosis, recent vomiting, severe sepsis 7. hypothyroidism 8. down syndrome 9. possible gastroparesis 10. h/o CVA 11. LEFT arm dvt with PICC. 12. rectal bleeding with ac on 09/02 13. anemia, 2/2 chronic dz and rectal bleeding History of Present Illness History of Present Illness Patient was lying in the bed at the time of evaluation, was in no acute distress , pt. is nonverbal and that is his baseline, Peg tube feeding is on, read palliative care note and will discuss plan of care with palliative care team. Vitals Vitals Vital Signs Date Time Temp Pulse Resp B/P Pulse Ox O2 Delivery O2 Flow Rate FiO2 09/07/16 11:08 Nasal Cannula 3.0 09/07/16 11:00 97.9 92 20 89/64 99 97.9 Physical Exam Physical Exam no follow commands or talk as baseline General: Alert, No acute distress, Other ( awake, ) Heart: Regular rate, No murmurs Lungs: Other ( rhonchi) Abdomen: Soft, No tenderness Extremities: No clubbing Skin: No breakdown, No significant lesion Labs LABS Laboratory Tests Test 09/06/16 11:53 09/06/16 15:55 09/06/16 22:56 09/07/16 04:20 Glucose (Fingerstick) 83mg/dL (70-99) 113mg/dL (70-99) 219mg/dL (70-99) White Blood Count 10.0x10^3/uL (4.0-11.0) Red Blood Count 2.28x10^6/uL (4.30-5.70) Hemoglobin 7.5g/dL (13.0-17.5) Hematocrit 23.0% (39.0-53.0) Mean Corpuscular Volume 101fL (79-100) Mean Corpuscular Hemoglobin 33pg (25-35) Mean Corpuscular Hemoglobin Concent 33g/dL (31-37) Red Cell Distribution Width 21.7% (11.5-14.5) Platelet Count 257x10^3/uL (140-400) Neutrophils (%) (Auto) 74% (31-73) Lymphocytes (%) (Auto) 18% (24-48) Monocytes (%) (Auto) 7% (0-9) Eosinophils (%) (Auto) 1% (0-3) Basophils (%) (Auto) 1% (0-3) Neutrophils # (Auto) 7.3x10^3uL (1.8-7.7) Lymphocytes # (Auto) 1.8x10^3/uL (1.0-4.8) Monocytes # (Auto) 0.6x10^3/uL (0.0-1.1) Eosinophils # (Auto) 0.1x10^3/uL (0.0-0.7) Basophils # (Auto) 0.1x10^3/uL (0.0-0.2) Sodium Level 141mmol/L (136-145) Potassium Level 3.8mmol/L (3.5-5.1) Chloride Level 106mmol/L (98-107) Carbon Dioxide Level 32mmol/L (21-32) Anion Gap 3 (6-14) Blood Urea Nitrogen 20mg/dL (8-26) Creatinine 0.9mg/dL (0.7-1.3) Estimated GFR (Cockcroft-Gault) 106.0 Glucose Level 180mg/dL (70-99) Calcium Level 8.1mg/dL (8.5-10.1) Review of Systems Review of Systems Awake, nonverbal, no SOB, afebrile Assessment and Plan Assessmemt and Plan Assessment: 1. Severe Sepsis, pneumonia 2. PNA, bed bound, , aspiration 3. Bed bound, non verbal, hx down's, and hx CVA 4. Dysphagia, indwelling PEG 5 MAHAD, vasomotor, now recovery phase with marked (critical) hypokalemia, 6. Gap metabolic acidosis, recent vomiting, severe sepsis 7. hypothyroidism 8. down syndrome 9. possible gastroparesis 10. h/o CVA 11. LEFT arm dvt with PICC. 12. rectal bleeding with ac on 09/02 13. anemia, 2/2 chronic dz and rectal bleeding Plan: 1. I Will discuss plan of care with palliative care team today 2. Continue feeding through Peg tube 3. Continue antibiotics per ID recommendations 4. F/u with Pul, ID, and GI 5. Recheck labs in AM 6. Continue PT/OT 7. Appreciate subspecialities inputs and recommendations Problems: Problems Medical Problems: (1) HAP (hospital-acquired pneumonia) Status: Acute (2) Pneumonia Status: Acute Problems: Comment Review of Relevant I have reviewed the following items kassie (where applicable) has been applied. Labs Laboratory Tests Test 09/05/16 16:10 09/05/16 23:28 09/06/16 04:30 09/06/16 05:16 Glucose (Fingerstick) 183mg/dL (70-99) 175mg/dL (70-99) 99mg/dL (70-99) White Blood Count 11.8x10^3/uL (4.0-11.0) Red Blood Count 2.49x10^6/uL (4.30-5.70) Hemoglobin 8.3g/dL (13.0-17.5) Hematocrit 24.8% (39.0-53.0) Mean Corpuscular Volume 100fL (79-100) Mean Corpuscular Hemoglobin 33pg (25-35) Mean Corpuscular Hemoglobin Concent 33g/dL (31-37) Red Cell Distribution Width 21.2% (11.5-14.5) Platelet Count 239x10^3/uL (140-400) Neutrophils (%) (Auto) 75% (31-73) Lymphocytes (%) (Auto) 17% (24-48) Monocytes (%) (Auto) 6% (0-9) Eosinophils (%) (Auto) 2% (0-3) Basophils (%) (Auto) 1% (0-3) Neutrophils # (Auto) 8.9x10^3uL (1.8-7.7) Lymphocytes # (Auto) 2.0x10^3/uL (1.0-4.8) Monocytes # (Auto) 0.7x10^3/uL (0.0-1.1) Eosinophils # (Auto) 0.2x10^3/uL (0.0-0.7) Basophils # (Auto) 0.1x10^3/uL (0.0-0.2) Platelet Estimate Adequate (ADEQUATE) Large Platelets Present Basophilic Stippling Present Anisocytosis Mod Sodium Level 143mmol/L (136-145) Potassium Level 4.3mmol/L (3.5-5.1) Chloride Level 107mmol/L (98-107) Carbon Dioxide Level 31mmol/L (21-32) Anion Gap 5 (6-14) Blood Urea Nitrogen 20mg/dL (8-26) Creatinine 0.8mg/dL (0.7-1.3) Estimated GFR (Cockcroft-Gault) 121.4 Glucose Level 107mg/dL (70-99) Calcium Level 7.9mg/dL (8.5-10.1) Test 09/06/16 11:53 09/06/16 15:55 09/06/16 22:56 09/07/16 04:20 Glucose (Fingerstick) 83mg/dL (70-99) 113mg/dL (70-99) 219mg/dL (70-99) White Blood Count 10.0x10^3/uL (4.0-11.0) Red Blood Count 2.28x10^6/uL (4.30-5.70) Hemoglobin 7.5g/dL (13.0-17.5) Hematocrit 23.0% (39.0-53.0) Mean Corpuscular Volume 101fL (79-100) Mean Corpuscular Hemoglobin 33pg (25-35) Mean Corpuscular Hemoglobin Concent 33g/dL (31-37) Red Cell Distribution Width 21.7% (11.5-14.5) Platelet Count 257x10^3/uL (140-400) Neutrophils (%) (Auto) 74% (31-73) Lymphocytes (%) (Auto) 18% (24-48) Monocytes (%) (Auto) 7% (0-9) Eosinophils (%) (Auto) 1% (0-3) Basophils (%) (Auto) 1% (0-3) Neutrophils # (Auto) 7.3x10^3uL (1.8-7.7) Lymphocytes # (Auto) 1.8x10^3/uL (1.0-4.8) Monocytes # (Auto) 0.6x10^3/uL (0.0-1.1) Eosinophils # (Auto) 0.1x10^3/uL (0.0-0.7) Basophils # (Auto) 0.1x10^3/uL (0.0-0.2) Sodium Level 141mmol/L (136-145) Potassium Level 3.8mmol/L (3.5-5.1) Chloride Level 106mmol/L (98-107) Carbon Dioxide Level 32mmol/L (21-32) Anion Gap 3 (6-14) Blood Urea Nitrogen 20mg/dL (8-26) Creatinine 0.9mg/dL (0.7-1.3) Estimated GFR (Cockcroft-Gault) 106.0 Glucose Level 180mg/dL (70-99) Calcium Level 8.1mg/dL (8.5-10.1) Laboratory Tests Test 09/06/16 11:53 09/06/16 15:55 09/06/16 22:56 09/07/16 04:20 Glucose (Fingerstick) 83mg/dL (70-99) 113mg/dL (70-99) 219mg/dL (70-99) White Blood Count 10.0x10^3/uL (4.0-11.0) Red Blood Count 2.28x10^6/uL (4.30-5.70) Hemoglobin 7.5g/dL (13.0-17.5) Hematocrit 23.0% (39.0-53.0) Mean Corpuscular Volume 101fL (79-100) Mean Corpuscular Hemoglobin 33pg (25-35) Mean Corpuscular Hemoglobin Concent 33g/dL (31-37) Red Cell Distribution Width 21.7% (11.5-14.5) Platelet Count 257x10^3/uL (140-400) Neutrophils (%) (Auto) 74% (31-73) Lymphocytes (%) (Auto) 18% (24-48) Monocytes (%) (Auto) 7% (0-9) Eosinophils (%) (Auto) 1% (0-3) Basophils (%) (Auto) 1% (0-3) Neutrophils # (Auto) 7.3x10^3uL (1.8-7.7) Lymphocytes # (Auto) 1.8x10^3/uL (1.0-4.8) Monocytes # (Auto) 0.6x10^3/uL (0.0-1.1) Eosinophils # (Auto) 0.1x10^3/uL (0.0-0.7) Basophils # (Auto) 0.1x10^3/uL (0.0-0.2) Sodium Level 141mmol/L (136-145) Potassium Level 3.8mmol/L (3.5-5.1) Chloride Level 106mmol/L (98-107) Carbon Dioxide Level 32mmol/L (21-32) Anion Gap 3 (6-14) Blood Urea Nitrogen 20mg/dL (8-26) Creatinine 0.9mg/dL (0.7-1.3) Estimated GFR (Cockcroft-Gault) 106.0 Glucose Level 180mg/dL (70-99) Calcium Level 8.1mg/dL (8.5-10.1) Microbiology 09/02/16 Blood Culture - Final, Complete NO GROWTH AFTER 5 DAYS 08/23/16 Urine Culture - Final, Complete 08/23/16 Urine Culture Result 1 (SHANON) - Final, Complete 08/23/16 Antimicrobic Susceptibility - Final, Complete Medications Current Medications Sodium Chloride 1,000 ml @ 1,000 mls/hr 1X ONCE IV Last administered on 11:16; Start 08/23/16 at 11:15; Stop 08/23/16 at 12:14; Status DC Sodium Chloride (Iv Sodium Chloride 0.9% 1000ml Bag) 1,000 ml @ 1,000 mls/hr 1X ONCE IV Last administered on 08/23/16 11:30; Start 08/23/16 at 11:30; Stop 08/23/16 at 12:29; Status DC Vancomycin HCl (Vanco Per Pharmacy) 1 each PRN DAILY PRN MC SEE COMMENTS Last administered on 08/25/16 13:04; Start 08/23/16 at 11:30; Stop 08/26/16 at 08:18; Status DC Piperacillin Sod/ Tazobactam Sod 1 each 1 each PRN DAILY PRN MC SEE COMMENTS; Start 08/23/16 at 11:30; Stop 08/25/16 at 09:54; Status DC Levofloxacin/ Dextrose 100 ml @ 100 mls/hr 1X ONCE IV Last administered on 12:58; Start 08/23/16 at 11:30; Stop 08/23/16 at 12:29; Status DC Piperacillin Sod/ Tazobactam Sod 4.5 gm/Sodium Chloride 100 ml @ 200 mls/hr 1X ONCE IV Last administered on 08/23/16 12:00; Start 08/23/16 at 12:00; Stop 08/23/16 at 12:29; Status DC Vancomycin HCl 1.5 gm/Sodium Chloride 500 ml @ 250 mls/hr 1X ONCE IV Last administered on 08/23/16 12:30; Start 08/23/16 at 12:30; Stop 08/23/16 at 14:29 ; Status DC Sodium Chloride 1,000 ml @ 1,000 mls/hr 1X ONCE IV Last administered on 12:46; Start 08/23/16 at 12:30; Stop 08/23/16 at 13:29; Status DC Piperacillin Sod/ Tazobactam Sod 3.375 gm/Sodium Chloride 50 ml @ 100 mls/hr Q6HRS IV Last administered on 09/01/16 05:29; Start 08/23/16 at 18:00; Stop 09/01/16 at 09:08; Status DC Vancomycin HCl/ Sodium Chloride (Iv Sodium Chloride 0.9% 250ml) 250 ml @ 250 mls/hr Q24H IV ; Start 08/24/16 at 13:00; Status Cancel Vancomycin HCl 1 each 1X ONCE MC ; Start 08/25/16 at 12:30; Stop 08/25/16 at 12: 31; Status DC Labetalol HCl (Normodyne) 10 mg PRN Q2HR PRN IVP HYPERTENSION, SEE COMMENTS; Start 08/23/16 at 15:45 Aspirin (Luis Armando Aspirin) 325 mg DAILY PEG Last administered on 09/07/16 08:50; Start 08/24/16 at 09:00 Bisacodyl (Dulcolax Supp) 10 mg PRN DAILY PRN RC CONSTIPATION Last administered on 08/29/16 15:48; Start 08/23/16 at 15:45 Vitamin D (Vitamin D3) 2,000 unit DAILY PO Last administered on 09/07/16 08:50 ; Start 08/24/16 at 09:00 Levetiracetam (Keppra) 500 mg BID PO ; Start 08/23/16 at 21:00; Stop 08/23/16 at 21:00; Status DC Vitamin B Complex (Hector B) 1 tab DAILY PO Last administered on 09/07/16 08:50 ; Start 08/24/16 at 09:00 Magnesium Hydroxide (Milk Of Magnesia) 2,400 mg PRN DAILY PRN PO CONSTIPATION; Start 08/23/16 at 15:45 Acetaminophen 500 mg 500 mg PRN Q6HRS PRN PO MILD PAIN / TEMP; Start 08/23/16 at 15:45 Levetiracetam/ Sodium Chloride (Keppra/Iv Sodium Chloride 0.9% 100ml) 105 ml @ 400 mls/hr Q12HR IV Last administered on 09/02/16 08:49; Start 08/23/16 at 21: 00; Stop 09/02/16 at 13:11; Status DC Pantoprazole Sodium (Protonix Vial) 40 mg DAILYAC IVP Last administered on 08:36; Start 08/24/16 at 07:30; Stop 09/02/16 at 13:11; Status DC Heparin Sodium (Porcine) 5000 unit 5,000 unit Q8HRS SQ ; Start 08/23/16 at 22:00 ; Stop 08/23/16 at 22:00; Status DC Sodium Bicarbonate/ Dextrose 1,150 ml @ 150 mls/hr Q7H40M IV Last administered on 08/25/16 08:05; Start 08/23/16 at 16:30; Stop 08/25/16 at 10:35; Status DC Sodium Bicarbonate 50 meq 1X ONCE IV Last administered on 08/23/16 16:24; Start 08/23/16 at 16:15; Stop 08/23/16 at 16:17; Status DC Albuterol/ Ipratropium 3 ml 3 ml RTQID NEB Last administered on 09/07/16 11:07 ; Start 08/23/16 at 20:00 Vancomycin HCl 750 mg/Sodium Chloride 250 ml @ 250 mls/hr Q24H IV Last administered on 08/24/16 12:15; Start 08/24/16 at 13:00; Stop 08/25/16 at 12:55 ; Status DC Norepinephrine Bitartrate 8 mg/ Sodium Chloride 258 ml @ 0 mls/hr CONT PRN IV SEE I/O RECORD Last administered on 08/25/16 00:28; Start 08/23/16 at 18:15; Stop 09/01/16 at 09:01; Status DC Sodium Chloride (Iv Sodium Chloride 0.9% 1000ml Bag) 1,000 ml @ 500 mls/hr Q2H IV Last administered on 08/23/16 17:00; Start 08/23/16 at 18:30; Stop at 20:29; Status DC Hydrocortisone Sodium Succinate (Solu-Cortef) 100 mg Q8HRS IV Last administered on 08/26/16 14:54; Start 08/23/16 at 22:30; Stop 08/26/16 at 16:49; Status DC Succinylcholine Chloride (Anectine) 200 mg STK-MED ONCE .ROUTE ; Start 08/24/16 at 04:15; Stop 08/24/16 at 04:16; Status DC Etomidate 20 mg 20 mg STK-MED ONCE IV ; Start 08/24/16 at 04:15; Stop 08/24/16 at 04:16; Status DC Fentanyl Citrate (Fentanyl 600 Mcg/30 ml BLAST FURNACE CHECKER) 30 ml @ 0 mls/hr CONT PRN IV PROTOCOL Last administered on 08/30/16 04:54; Start 08/24/16 at 04:45; Stop 04/12 at 08:03; Status DC Fentanyl Citrate (Fentanyl 2ml Vial) 25 mcg PRN Q1HR PRN IV COMM Last administered on 08/29/16 07:44; Start 08/24/16 at 04:45; Stop 08/30/16 at 16:51; Status DC Fentanyl Citrate (Fentanyl 2ml Vial) 50 mcg PRN Q1HR PRN IV COMM; Start at 04:45; Status Cancel Chlorhexidine Gluconate 15 ml 15 ml BID MM Last administered on 08/30/16 08:15 ; Start 08/24/16 at 09:00; Stop 08/30/16 at 22:16; Status DC Midazolam HCl 100 ml @ 0 mls/hr CONT PRN IV PER PROTOCOL Last administered on 10:50; Start 08/24/16 at 04:45; Stop 09/01/16 at 09:02; Status DC Midazolam HCl 100 ml @ As Directed STK-MED ONCE IV ; Start 08/24/16 at 04:52; Stop 08/24/16 at 04:53; Status DC Sodium Chloride 1,000 ml @ 150 mls/hr Q6H40M IV Last administered on 06:13; Start 08/24/16 at 05:45; Stop 08/24/16 at 09:59; Status DC Vasopressin 40 unit/Dextrose 102 ml @ 6 mls/hr 1X ONCE IV Last administered on 08/24/16 06:12; Start 08/24/16 at 06:00; Stop 08/24/16 at 20:00; Status DC Phenylephrine HCl 20 mg/Sodium Chloride 252 ml @ 0 mls/hr CONT PRN IV SEE I/O RECORD Last administered on 08/24/16 07:28; Start 08/24/16 at 05:45; Stop 09/03 at 08:03; Status DC Albumin Human 500 ml @ 125 mls/hr 1X ONCE IV Last administered on 08/24/16 06:20; Start 08/24/16 at 05:45; Stop 08/24/16 at 09:44; Status DC Micafungin Sodium 100 mg/Dextrose 100 ml @ 100 mls/hr Q24H IV Last administered on 08/26/16 09:29; Start 08/24/16 at 09:00; Stop 08/27/16 at 07:37; Status DC Epinephrine HCl/ Sodium Chloride (Adrenalin/Iv Sodium Chloride 0.9% 250ml) 254 ml @ 0 mls/hr CONT PRN IV SEE I/O RECORD; Start 08/24/16 at 07:30; Status Cancel Epinephrine HCl (Adrenalin) 30 mg STK-MED ONCE .ROUTE ; Start 08/23/16 at 12:00 ; Stop 08/24/16 at 10:38; Status DC Epinephrine HCl 4 mg STK-MED ONCE .ROUTE ; Start 08/23/16 at 12:00; Stop at 10:38; Status DC Sodium Bicarbonate 100 meq 100 meq STK-MED ONCE .ROUTE ; Start 08/23/16 at 12:00 ; Stop 08/24/16 at 10:38; Status DC Levothyroxine Sodium 50 mcg/ Sodium Chloride 5 ml @ 100 mls/hr DAILY IVP Last administered on 09/02/16 08:50; Start 08/24/16 at 15:00; Stop 09/02/16 at 13:11; Status DC Phytonadione 10 mg/Sodium Chloride 51 ml @ 102 mls/hr 1X ONCE IV Last administered on 08/24/16 15:14; Start 08/24/16 at 14:30; Stop 08/24/16 at 14:59 ; Status DC Vasopressin/ Dextrose (Vasostrict) 102 ml @ 6 mls/hr CONT PRN IV SEE I/O RECORD Last administered on 08/26/16 05:44; Start 08/24/16 at 18:15; Stop at 18:47; Status DC Acetaminophen 650 mg 650 mg PRN Q6HRS PRN PEG MILD PAIN / TEMP Last administered on 09/06/16 22:14; Start 08/24/16 at 20:45 Levofloxacin/ Dextrose (LEVAQUIN 500mg PREMIX) 100 ml @ 100 mls/hr 1X ONCE IV Last administered on 08/25/16 08:06; Start 08/25/16 at 08:00; Stop 08/25/16 at 08:59; Status DC Insulin Aspart (Novolog) 0-9 UNITS TIDWMEALS SQ Last administered on 08/25/16 17:23; Start 08/25/16 at 08:00; Stop 08/25/16 at 19:32; Status DC Dextrose 12.5 gm PRN Q15MIN PRN IV SEE COMMENTS Last administered on 09/02/16 06:08; Start 08/25/16 at 07:30 Insulin Aspart 10 units 10 units 1X ONCE SQ Last administered on 08/25/16 08: 08; Start 08/25/16 at 08:00; Stop 08/25/16 at 08:01; Status DC Sodium Chloride 1,000 ml @ 50 mls/hr Q20H IV Last administered on 08/31/16 07: 36; Start 08/25/16 at 11:00; Stop 08/31/16 at 18:09; Status DC Potassium Chloride/Sodium Chloride (Iv Sodium Chloride 0.45%) 1,015 ml @ 75 mls /hr 1X ONCE IV Last administered on 08/25/16 10:55; Start 08/25/16 at 11:00; Stop 08/26/16 at 00:31; Status DC Insulin Aspart 10 units 10 units 1X ONCE SQ Last administered on 08/25/16 12: 42; Start 08/25/16 at 12:45; Stop 08/25/16 at 12:46; Status DC Vancomycin HCl/ Sodium Chloride (Iv Sodium Chloride 0.9% 250ml) 250 ml @ 250 mls/hr Q18H IV Last administered on 08/26/16 06:39; Start 08/25/16 at 13:00; Stop 08/26/16 at 08:18; Status DC Insulin Aspart 0-9 UNITS Q6HRS SQ Last administered on 09/06/16 23:02; Start 08/26/16 at 00:00 Levofloxacin/ Dextrose 100 ml @ 100 mls/hr 1X ONCE IV Last administered on 09:28; Start 08/26/16 at 09:30; Stop 08/26/16 at 10:29; Status DC Potassium Chloride/Sodium Chloride (Iv Sodium Chloride 0.45%) 1,015 ml @ 75 mls /hr 1X ONCE IV Last administered on 08/26/16 15:23; Start 08/26/16 at 11:00; Stop 08/27/16 at 00:31; Status DC Hydrocortisone Sodium Succinate 100 mg 100 mg BID IV Last administered on 08:15; Start 08/27/16 at 09:00; Stop 08/30/16 at 09:26; Status DC Amino Acids/ Electrolytes/ Dextrose 1,000 ml @ 80 mls/hr [id number] IV Last administered on 09/02/16 00:11; Start 08/27/16 at 12:30; Stop 09/02/16 at 08:13; Status DC Potassium Chloride (KCl Premix 20meq) 50 ml @ 50 mls/hr 1X ONCE IV Last administered on 08/27/16 15:29; Start 08/27/16 at 12:30; Stop 08/27/16 at 13:29; Status DC Insulin Aspart 15 units 15 units 1X ONCE SQ Last administered on 08/28/16 07: 13; Start 08/28/16 at 07:15; Stop 08/28/16 at 07:16; Status DC Propofol 100 ml @ As Directed STK-MED ONCE IV ; Start 08/29/16 at 16:23; Stop at 16:24; Status DC Propofol (Diprivan) 100 ml @ 0 mls/hr CONT PRN IV SEE I/O RECORD Last administered on 08/29/16 16:30; Start 08/29/16 at 18:00; Stop 09/02/16 at 14:32; Status DC Insulin Aspart 6 units 6 units 1X ONCE SQ Last administered on 08/30/16 08:18 ; Start 08/30/16 at 07:15; Stop 08/30/16 at 07:16; Status DC Potassium Chloride (KCl Premix 20meq) 50 ml @ 50 mls/hr Q1H IV Last administered on 08/30/16 12:00; Start 08/30/16 at 07:30; Stop 08/30/16 at 09:29; Status DC Hydrocortisone Sodium Succinate (Solu-Cortef) 50 mg BID IV Last administered on 08/31/16 09:28; Start 08/30/16 at 21:00; Stop 08/31/16 at 09:41; Status DC Insulin Aspart (Novolog) 10 units 1X ONCE SQ Last administered on 08/31/16 00: 49; Start 08/31/16 at 01:00; Stop 08/31/16 at 01:01; Status DC Hydrocortisone Sodium Succinate (Solu-Cortef) 25 mg BID IV Last administered on 09/01/16 09:27; Start 08/31/16 at 21:00; Stop 09/01/16 at 12:11; Status DC Insulin Aspart (Novolog) 10 units TIDAC SQ Last administered on 08/31/16 16:36 ; Start 08/31/16 at 11:30; Stop 09/01/16 at 08:59; Status DC Insulin Detemir 15 units 15 units DAILY10 SQ Last administered on 08/31/16 11: 59; Start 08/31/16 at 11:30; Stop 09/01/16 at 08:59; Status DC Potassium Chloride (KCl Premix 20meq) 50 ml @ 50 mls/hr Q1H IV Last administered on 08/31/16 16:32; Start 08/31/16 at 12:00; Stop 08/31/16 at 15:59; Status DC Potassium Chloride (KCl Oral Soln) 20 meq 1X ONCE PEG ; Start 08/31/16 at 15:00 ; Stop 08/31/16 at 15:00; Status DC Potassium Chloride (KCl Oral Soln) 20 meq DAILY PEG Last administered on 08:50; Start 09/01/16 at 09:00 Potassium Chloride (KCl Oral Soln) 40 meq 1X ONCE PEG Last administered on 08/31 16:32; Start 08/31/16 at 14:30; Stop 08/31/16 at 14:31; Status DC Insulin Aspart (Novolog) 10 units Q6HRS SQ Last administered on 09/02/16 00:23 ; Start 09/01/16 at 12:00; Stop 09/02/16 at 08:13; Status DC Insulin Detemir (Levemir) 20 units QHS SQ Last administered on 09/01/16 21:00; Start 09/01/16 at 21:00; Stop 09/02/16 at 08:13; Status DC Cefpodoxime Proxetil (Vantin) 100 mg BID PO Last administered on 09/07/16 08: 51; Start 09/01/16 at 10:00 Metoclopramide HCl (Reglan) 5 mg QIDACHS IV Last administered on 09/02/16 12:41 ; Start 09/01/16 at 11:30; Stop 09/02/16 at 13:11; Status DC Insulin Aspart (Novolog) 5 units Q6HRS SQ ; Start 09/02/16 at 12:00; Stop at 12:10; Status DC Insulin Detemir (Levemir) 10 units QHS SQ Last administered on 09/03/16 21:09 ; Start 09/02/16 at 21:00; Stop 09/04/16 at 10:14; Status DC Furosemide (Lasix) 40 mg 1X ONCE IVP Last administered on 09/02/16 08:47; Start 09/02/16 at 08:15; Stop 09/02/16 at 08:23; Status DC Levetiracetam (Keppra) 500 mg BID PEG Last administered on 09/07/16 08:50; Start 09/02/16 at 21:00 Pantoprazole Sodium (Protonix) 40 mg DAILYAC PO ; Start 09/03/16 at 07:30; Stop 09/03/16 at 07:30; Status DC Metoclopramide HCl (Reglan) 10 mg QIDACHS PO Last administered on 09/07/16 07: 55; Start 09/02/16 at 16:30 Levothyroxine Sodium (Synthroid) 100 mcg DAILY07 PO Last administered on 05:30; Start 09/03/16 at 07:00 Warfarin Sodium (Coumadin) 5 mg DAILY16 PO Last administered on 09/02/16 15:52 ; Start 09/02/16 at 16:00; Stop 09/03/16 at 08:31; Status DC Warfarin Sodium (Coumadin Per Pharmacy) 1 each PRN DAILY PRN MC SEE COMMENTS; Start 09/02/16 at 13:15; Stop 09/03/16 at 09:09; Status DC Lansoprazole (Prevacid) 30 mg DAILY PEG Last administered on 09/07/16 08:51; Start 09/03/16 at 09:00 Enoxaparin Sodium (Lovenox 60mg Syringe) 60 mg Q12HR SQ Last administered on 21:48; Start 09/02/16 at 15:00; Stop 09/03/16 at 08:31; Status DC Furosemide (Lasix) 40 mg 1X ONCE IVP Last administered on 09/03/16 14:15; Start 09/03/16 at 10:15; Stop 09/03/16 at 10:16; Status DC Info (Anti-Coagulation Monitoring By Pharmacy) 1 each PRN DAILY PRN MC SEE COMMENTS Last administered on 09/03/16 14:14; Start 09/03/16 at 14:00; Stop 05/13 at 07:59; Status DC Insulin Detemir (Levemir) 15 units QHS SQ Last administered on 09/04/16 20:47 ; Start 09/04/16 at 21:00; Stop 09/05/16 at 08:39; Status DC Insulin Detemir (Levemir) 18 units QHS SQ ; Start 09/05/16 at 21:00; Stop at 21:00; Status DC Insulin Detemir (Levemir) 20 units QHS SQ Last administered on 09/06/16 20:53 ; Start 09/05/16 at 21:00 Iohexol (Omnipaque 300 Mg/ml) 50 ml STK-MED ONCE .ROUTE ; Start 09/06/16 at 10: 15; Stop 09/06/16 at 10:16; Status DC Lidocaine/Sodium Bicarbonate 20 ml 20 ml STK-MED ONCE IJ ; Start 09/06/16 at 10: 16; Stop 09/06/16 at 10:17; Status DC Heparin Sodium/ Sodium Chloride 500 ml @ As Directed STK-MED ONCE .ROUTE ; Start 09/06/16 at 10:16; Stop 09/06/16 at 10:17; Status DC Heparin Sodium/ Sodium Chloride 1,000 unit 1X ONCE IART Last administered on 11:15; Start 09/06/16 at 11:00; Stop 09/06/16 at 11:03; Status DC Lidocaine/Sodium Bicarbonate (Buffered Lidocaine 1%) 20 ml 1X ONCE IJ Last administered on 09/06/16 11:15; Start 09/06/16 at 11:00; Stop 09/06/16 at 11:03 ; Status DC Iohexol (Omnipaque 300 Mg/ml) 50 ml 1X ONCE IART Last administered on 11:15; Start 09/06/16 at 11:00; Stop 09/06/16 at 11:03; Status DC Vitamin A/Vitamin D (Vitamin A & D Ointment) 1 gavin PRN TID PRN TP SKIN PROTECTION Last administered on 09/06/16 20:49; Start 09/06/16 at 18:02 Active Scripts Active Reported Milk Of Magnesia (Magnesium Hydroxide) 2,400 Mg/10 Ml Oral.susp 2,400 Mg PO DAILY PRN Dulcolax (Bisacodyl) 10 Mg Supp.rect 10 Mg RC PRN DAILY PRN Aspirin 325 Mg Tablet 1 Tab PEG DAILY Tylenol (Acetaminophen) 325 Mg Tablet 2 Tab PO PRN Q6HRS PRN Vitamin B Complex 1 Each Tablet 1 Tab PO DAILY Vitamin D3 (Cholecalciferol (Vitamin D3)) 1,000 Unit Tablet 2,000 Unit PO DAILY Keppra (Levetiracetam) 500 Mg Tablet 500 Mg PO BID Vitals/I & O Vital Sign - Last 24 Hours 09/06/16 09/06/16 09/06/16 09/06/16 12:23 15:00 15:44 19:15 Temp 98.6 98.6 Pulse 119 Resp 30 B/P 107/66 Pulse Ox 96 O2 Delivery Nasal Cannula Nasal Cannula Nasal Cannula Nasal Cannula O2 Flow Rate 3.5 3.0 3.5 3.0 09/06/16 09/06/16 09/06/16 09/07/16 19:49 20:38 23:50 02:55 Temp 100.6 98.0 98.2 100.6 98.0 98.2 Pulse 109 111 104 Resp 20 20 18 B/P 96/64 124/75 115/66 Pulse Ox 98 99 98 98 O2 Delivery Nasal Cannula Nasal Cannula Room Air Room Air O2 Flow Rate 3.0 3.5 3.0 3.0 09/07/16 09/07/16 09/07/16 09/07/16 07:00 08:05 08:30 11:00 Temp 97.8 97.9 97.8 97.9 Pulse 98 92 Resp 20 20 B/P 128/77 89/64 Pulse Ox 90 91 99 O2 Delivery Nasal Cannula Nasal Cannula Nasal Cannula Nasal Cannula O2 Flow Rate 3.0 2.0 3.0 3.0 09/07/16 11:08 O2 Delivery Nasal Cannula O2 Flow Rate 3.0 Intake and Output 09/06/16 09/06/16 09/07/16 15:00 23:00 07:00 Intake Total 200 ml 800 ml Output Total 1200 ml 1000 ml Balance 200 ml -400 ml -1000 ml JAMEE GUZMAN III DO Sep 07, 2016 11:57
[2016-09-07] MEDS: INSULIN DETEMIR 300 UNITS/3 ML INSULN.PEN. SQ SCH (21:43)
[2016-09-08 03:00] VITALS: BP 110/70
[2016-09-08 04:42] LABS: BASO # 0.1 x10^3/uL (0.0-0.2); BASO % 1 % (0-3); EOS % 1 % (0-3); HEMATOCRIT 26.6 % (39.0-53.0); HEMOGLOBIN 8.6 g/dL (13.0-17.5); LYMPH % 17 % (24-48); MEAN CORPUSCULAR HEMOGLOBIN 33 pg (25-35); MEAN CORPUSCULAR HGB CONC 33 g/dL (31-37); MEAN CORPUSCULAR VOLUME 102 fL (79-100); MONO % 6 % (0-9); NEUT % 75 % (31-73); PLATELET COUNT 326 x10^3/uL (140-400); RED BLOOD COUNT 2.62 x10^6/uL (4.30-5.70); RED CELL DISTRIBUTION WIDTH 22.3 % (11.5-14.5); WHITE BLOOD COUNT 12.1 x10^3/uL (4.0-11.0)
[2016-09-08 04:52] LABS: CALCIUM 8.7 mg/dL (8.5-10.1); CREATININE 0.8 mg/dL (0.7-1.3); GFR 121.4; POTASSIUM 4.2 mmol/L (3.5-5.1)
[2016-09-08] MEDS: INSULIN ASPART 300 UNITS/3 ML INSULN.PEN SQ SCH ×3 (06:00→11:52)
[2016-09-08] MEDS: LEVOTHYROXINE 100 MCG TABLET PO SCH (06:01)
[2016-09-08] MEDS: METOCLOPRAMIDE HCL 10 MG/10 ML SOLUTION. PO SCH ×2 (06:01→11:53)
[2016-09-08 07:00] VITALS: BP 115/65
[2016-09-08] MEDS: IPRATRPIUM/ALBUTEROL 0.5/2.5MG 3 ML NEBU. NEB SCH ×3 (07:30→15:14)
[2016-09-08] MEDS: POTASSIUM CHLORIDE 20 MEQ/15 ML ORAL LIQUID. PEG SCH (09:23)
[2016-09-08] MEDS: CHOLECALCIFEROL (VITAMIN D3) 1,000 UNIT TABLET PO SCH (09:23)
[2016-09-08] MEDS: ASPIRIN 325 MG TABLET PEG SCH (09:24)
[2016-09-08] MEDS: CEFPODOXIME PROXETIL 100 MG TABLET PO SCH (09:24)
[2016-09-08] MEDS: LANSOPRAZOLE 30 MG TAB.RAP.DR PEG SCH (09:24)
[2016-09-08] MEDS: VITAMIN B COMPLEX TABLET. PO SCH (09:24)
[2016-09-08] MEDS: LEVETIRACETAM 500 MG/5 ML SOLUTION PEG SCH (09:35)
--- NOTE | 2016-09-08 10:30 | PDOC ---
G I PROGRESS NOTE Subjective Non-verbal. Objective NO reports of any active GI issues. Physical Exam Lungs clear anteriorly. RRR Abdomen soft, not distended. Review of Relevant I have reviewed the following items kassie (where applicable) has been applied. Labs Laboratory Tests Test 09/06/16 11:53 09/06/16 15:55 09/06/16 22:56 09/07/16 04:20 Glucose (Fingerstick) 83mg/dL (70-99) 113mg/dL (70-99) 219mg/dL (70-99) White Blood Count 10.0x10^3/uL (4.0-11.0) Red Blood Count 2.28x10^6/uL (4.30-5.70) Hemoglobin 7.5g/dL (13.0-17.5) Hematocrit 23.0% (39.0-53.0) Mean Corpuscular Volume 101fL (79-100) Mean Corpuscular Hemoglobin 33pg (25-35) Mean Corpuscular Hemoglobin Concent 33g/dL (31-37) Red Cell Distribution Width 21.7% (11.5-14.5) Platelet Count 257x10^3/uL (140-400) Neutrophils (%) (Auto) 74% (31-73) Lymphocytes (%) (Auto) 18% (24-48) Monocytes (%) (Auto) 7% (0-9) Eosinophils (%) (Auto) 1% (0-3) Basophils (%) (Auto) 1% (0-3) Neutrophils # (Auto) 7.3x10^3uL (1.8-7.7) Lymphocytes # (Auto) 1.8x10^3/uL (1.0-4.8) Monocytes # (Auto) 0.6x10^3/uL (0.0-1.1) Eosinophils # (Auto) 0.1x10^3/uL (0.0-0.7) Basophils # (Auto) 0.1x10^3/uL (0.0-0.2) Sodium Level 141mmol/L (136-145) Potassium Level 3.8mmol/L (3.5-5.1) Chloride Level 106mmol/L (98-107) Carbon Dioxide Level 32mmol/L (21-32) Anion Gap 3 (6-14) Blood Urea Nitrogen 20mg/dL (8-26) Creatinine 0.9mg/dL (0.7-1.3) Estimated GFR (Cockcroft-Gault) 106.0 Glucose Level 180mg/dL (70-99) Calcium Level 8.1mg/dL (8.5-10.1) Test 09/07/16 11:45 09/07/16 17:15 09/08/16 03:31 09/08/16 03:51 Glucose (Fingerstick) 175mg/dL (70-99) 130mg/dL (70-99) Sodium Level 142mmol/L (136-145) Potassium Level 4.2mmol/L (3.5-5.1) Chloride Level 104mmol/L (98-107) Carbon Dioxide Level 33mmol/L (21-32) Anion Gap 5 (6-14) Blood Urea Nitrogen 18mg/dL (8-26) Creatinine 0.8mg/dL (0.7-1.3) Estimated GFR (Cockcroft-Gault) 121.4 Glucose Level 115mg/dL (70-99) Calcium Level 8.7mg/dL (8.5-10.1) White Blood Count 12.1x10^3/uL (4.0-11.0) Red Blood Count 2.62x10^6/uL (4.30-5.70) Hemoglobin 8.6g/dL (13.0-17.5) Hematocrit 26.6% (39.0-53.0) Mean Corpuscular Volume 102fL (79-100) Mean Corpuscular Hemoglobin 33pg (25-35) Mean Corpuscular Hemoglobin Concent 33g/dL (31-37) Red Cell Distribution Width 22.3% (11.5-14.5) Platelet Count 326x10^3/uL (140-400) Neutrophils (%) (Auto) 75% (31-73) Lymphocytes (%) (Auto) 17% (24-48) Monocytes (%) (Auto) 6% (0-9) Eosinophils (%) (Auto) 1% (0-3) Basophils (%) (Auto) 1% (0-3) Neutrophils # (Auto) 9.1x10^3uL (1.8-7.7) Lymphocytes # (Auto) 2.0x10^3/uL (1.0-4.8) Monocytes # (Auto) 0.7x10^3/uL (0.0-1.1) Eosinophils # (Auto) 0.1x10^3/uL (0.0-0.7) Basophils # (Auto) 0.1x10^3/uL (0.0-0.2) Test 09/08/16 08:03 Glucose (Fingerstick) 120mg/dL (70-99) Laboratory Tests Test 09/07/16 11:45 09/07/16 17:15 09/08/16 03:31 09/08/16 03:51 Glucose (Fingerstick) 175mg/dL (70-99) 130mg/dL (70-99) Sodium Level 142mmol/L (136-145) Potassium Level 4.2mmol/L (3.5-5.1) Chloride Level 104mmol/L (98-107) Carbon Dioxide Level 33mmol/L (21-32) Anion Gap 5 (6-14) Blood Urea Nitrogen 18mg/dL (8-26) Creatinine 0.8mg/dL (0.7-1.3) Estimated GFR (Cockcroft-Gault) 121.4 Glucose Level 115mg/dL (70-99) Calcium Level 8.7mg/dL (8.5-10.1) White Blood Count 12.1x10^3/uL (4.0-11.0) Red Blood Count 2.62x10^6/uL (4.30-5.70) Hemoglobin 8.6g/dL (13.0-17.5) Hematocrit 26.6% (39.0-53.0) Mean Corpuscular Volume 102fL (79-100) Mean Corpuscular Hemoglobin 33pg (25-35) Mean Corpuscular Hemoglobin Concent 33g/dL (31-37) Red Cell Distribution Width 22.3% (11.5-14.5) Platelet Count 326x10^3/uL (140-400) Neutrophils (%) (Auto) 75% (31-73) Lymphocytes (%) (Auto) 17% (24-48) Monocytes (%) (Auto) 6% (0-9) Eosinophils (%) (Auto) 1% (0-3) Basophils (%) (Auto) 1% (0-3) Neutrophils # (Auto) 9.1x10^3uL (1.8-7.7) Lymphocytes # (Auto) 2.0x10^3/uL (1.0-4.8) Monocytes # (Auto) 0.7x10^3/uL (0.0-1.1) Eosinophils # (Auto) 0.1x10^3/uL (0.0-0.7) Basophils # (Auto) 0.1x10^3/uL (0.0-0.2) Test 09/08/16 08:03 Glucose (Fingerstick) 120mg/dL (70-99) Microbiology 09/02/16 Blood Culture - Final, Complete NO GROWTH AFTER 5 DAYS 08/23/16 Urine Culture - Final, Complete 08/23/16 Urine Culture Result 1 (SHANON) - Final, Complete 08/23/16 Antimicrobic Susceptibility - Final, Complete Medications Current Medications Sodium Chloride 1,000 ml @ 1,000 mls/hr 1X ONCE IV Last administered on 11:16; Start 08/23/16 at 11:15; Stop 08/23/16 at 12:14; Status DC Sodium Chloride (Iv Sodium Chloride 0.9% 1000ml Bag) 1,000 ml @ 1,000 mls/hr 1X ONCE IV Last administered on 08/23/16 11:30; Start 08/23/16 at 11:30; Stop 08/23/16 at 12:29; Status DC Vancomycin HCl (Vanco Per Pharmacy) 1 each PRN DAILY PRN MC SEE COMMENTS Last administered on 08/25/16 13:04; Start 08/23/16 at 11:30; Stop 08/26/16 at 08:18; Status DC Piperacillin Sod/ Tazobactam Sod 1 each 1 each PRN DAILY PRN MC SEE COMMENTS; Start 08/23/16 at 11:30; Stop 08/25/16 at 09:54; Status DC Levofloxacin/ Dextrose 100 ml @ 100 mls/hr 1X ONCE IV Last administered on 12:58; Start 08/23/16 at 11:30; Stop 08/23/16 at 12:29; Status DC Piperacillin Sod/ Tazobactam Sod 4.5 gm/Sodium Chloride 100 ml @ 200 mls/hr 1X ONCE IV Last administered on 08/23/16 12:00; Start 08/23/16 at 12:00; Stop 08/23/16 at 12:29; Status DC Vancomycin HCl 1.5 gm/Sodium Chloride 500 ml @ 250 mls/hr 1X ONCE IV Last administered on 08/23/16 12:30; Start 08/23/16 at 12:30; Stop 08/23/16 at 14:29 ; Status DC Sodium Chloride 1,000 ml @ 1,000 mls/hr 1X ONCE IV Last administered on 12:46; Start 08/23/16 at 12:30; Stop 08/23/16 at 13:29; Status DC Piperacillin Sod/ Tazobactam Sod 3.375 gm/Sodium Chloride 50 ml @ 100 mls/hr Q6HRS IV Last administered on 09/01/16 05:29; Start 08/23/16 at 18:00; Stop 09/01/16 at 09:08; Status DC Vancomycin HCl/ Sodium Chloride (Iv Sodium Chloride 0.9% 250ml) 250 ml @ 250 mls/hr Q24H IV ; Start 08/24/16 at 13:00; Status Cancel Vancomycin HCl 1 each 1X ONCE MC ; Start 08/25/16 at 12:30; Stop 08/25/16 at 12: 31; Status DC Labetalol HCl (Normodyne) 10 mg PRN Q2HR PRN IVP HYPERTENSION, SEE COMMENTS; Start 08/23/16 at 15:45 Aspirin (Luis Armando Aspirin) 325 mg DAILY PEG Last administered on 09/08/16 09:24; Start 08/24/16 at 09:00 Bisacodyl (Dulcolax Supp) 10 mg PRN DAILY PRN RC CONSTIPATION Last administered on 08/29/16 15:48; Start 08/23/16 at 15:45 Vitamin D (Vitamin D3) 2,000 unit DAILY PO Last administered on 09/08/16 09:23 ; Start 08/24/16 at 09:00 Levetiracetam (Keppra) 500 mg BID PO ; Start 08/23/16 at 21:00; Stop 08/23/16 at 21:00; Status DC Vitamin B Complex (Hector B) 1 tab DAILY PO Last administered on 09/08/16 09:24 ; Start 08/24/16 at 09:00 Magnesium Hydroxide (Milk Of Magnesia) 2,400 mg PRN DAILY PRN PO CONSTIPATION; Start 08/23/16 at 15:45 Acetaminophen 500 mg 500 mg PRN Q6HRS PRN PO MILD PAIN / TEMP; Start 08/23/16 at 15:45 Levetiracetam/ Sodium Chloride (Keppra/Iv Sodium Chloride 0.9% 100ml) 105 ml @ 400 mls/hr Q12HR IV Last administered on 09/02/16 08:49; Start 08/23/16 at 21: 00; Stop 09/02/16 at 13:11; Status DC Pantoprazole Sodium (Protonix Vial) 40 mg DAILYAC IVP Last administered on 08:36; Start 08/24/16 at 07:30; Stop 09/02/16 at 13:11; Status DC Heparin Sodium (Porcine) 5000 unit 5,000 unit Q8HRS SQ ; Start 08/23/16 at 22:00 ; Stop 08/23/16 at 22:00; Status DC Sodium Bicarbonate/ Dextrose 1,150 ml @ 150 mls/hr Q7H40M IV Last administered on 08/25/16 08:05; Start 08/23/16 at 16:30; Stop 08/25/16 at 10:35; Status DC Sodium Bicarbonate 50 meq 1X ONCE IV Last administered on 08/23/16 16:24; Start 08/23/16 at 16:15; Stop 08/23/16 at 16:17; Status DC Albuterol/ Ipratropium 3 ml 3 ml RTQID NEB Last administered on 09/08/16 07:30 ; Start 08/23/16 at 20:00 Vancomycin HCl 750 mg/Sodium Chloride 250 ml @ 250 mls/hr Q24H IV Last administered on 08/24/16 12:15; Start 08/24/16 at 13:00; Stop 08/25/16 at 12:55 ; Status DC Norepinephrine Bitartrate 8 mg/ Sodium Chloride 258 ml @ 0 mls/hr CONT PRN IV SEE I/O RECORD Last administered on 08/25/16 00:28; Start 08/23/16 at 18:15; Stop 09/01/16 at 09:01; Status DC Sodium Chloride (Iv Sodium Chloride 0.9% 1000ml Bag) 1,000 ml @ 500 mls/hr Q2H IV Last administered on 08/23/16 17:00; Start 08/23/16 at 18:30; Stop at 20:29; Status DC Hydrocortisone Sodium Succinate (Solu-Cortef) 100 mg Q8HRS IV Last administered on 08/26/16 14:54; Start 08/23/16 at 22:30; Stop 08/26/16 at 16:49; Status DC Succinylcholine Chloride (Anectine) 200 mg STK-MED ONCE .ROUTE ; Start 08/24/16 at 04:15; Stop 08/24/16 at 04:16; Status DC Etomidate 20 mg 20 mg STK-MED ONCE IV ; Start 08/24/16 at 04:15; Stop 08/24/16 at 04:16; Status DC Fentanyl Citrate (Fentanyl 600 Mcg/30 ml MULTIMEDIA PRODUCER) 30 ml @ 0 mls/hr CONT PRN IV PROTOCOL Last administered on 08/30/16 04:54; Start 08/24/16 at 04:45; Stop 04/12 at 08:03; Status DC Fentanyl Citrate (Fentanyl 2ml Vial) 25 mcg PRN Q1HR PRN IV COMM Last administered on 08/29/16 07:44; Start 08/24/16 at 04:45; Stop 08/30/16 at 16:51; Status DC Fentanyl Citrate (Fentanyl 2ml Vial) 50 mcg PRN Q1HR PRN IV COMM; Start at 04:45; Status Cancel Chlorhexidine Gluconate 15 ml 15 ml BID MM Last administered on 08/30/16 08:15 ; Start 08/24/16 at 09:00; Stop 08/30/16 at 22:16; Status DC Midazolam HCl 100 ml @ 0 mls/hr CONT PRN IV PER PROTOCOL Last administered on 10:50; Start 08/24/16 at 04:45; Stop 09/01/16 at 09:02; Status DC Midazolam HCl 100 ml @ As Directed STK-MED ONCE IV ; Start 08/24/16 at 04:52; Stop 08/24/16 at 04:53; Status DC Sodium Chloride 1,000 ml @ 150 mls/hr Q6H40M IV Last administered on 06:13; Start 08/24/16 at 05:45; Stop 08/24/16 at 09:59; Status DC Vasopressin 40 unit/Dextrose 102 ml @ 6 mls/hr 1X ONCE IV Last administered on 08/24/16 06:12; Start 08/24/16 at 06:00; Stop 08/24/16 at 20:00; Status DC Phenylephrine HCl 20 mg/Sodium Chloride 252 ml @ 0 mls/hr CONT PRN IV SEE I/O RECORD Last administered on 08/24/16 07:28; Start 08/24/16 at 05:45; Stop 09/03 at 08:03; Status DC Albumin Human 500 ml @ 125 mls/hr 1X ONCE IV Last administered on 08/24/16 06:20; Start 08/24/16 at 05:45; Stop 08/24/16 at 09:44; Status DC Micafungin Sodium 100 mg/Dextrose 100 ml @ 100 mls/hr Q24H IV Last administered on 08/26/16 09:29; Start 08/24/16 at 09:00; Stop 08/27/16 at 07:37; Status DC Epinephrine HCl/ Sodium Chloride (Adrenalin/Iv Sodium Chloride 0.9% 250ml) 254 ml @ 0 mls/hr CONT PRN IV SEE I/O RECORD; Start 08/24/16 at 07:30; Status Cancel Epinephrine HCl (Adrenalin) 30 mg STK-MED ONCE .ROUTE ; Start 08/23/16 at 12:00 ; Stop 08/24/16 at 10:38; Status DC Epinephrine HCl 4 mg STK-MED ONCE .ROUTE ; Start 08/23/16 at 12:00; Stop at 10:38; Status DC Sodium Bicarbonate 100 meq 100 meq STK-MED ONCE .ROUTE ; Start 08/23/16 at 12:00 ; Stop 08/24/16 at 10:38; Status DC Levothyroxine Sodium 50 mcg/ Sodium Chloride 5 ml @ 100 mls/hr DAILY IVP Last administered on 09/02/16 08:50; Start 08/24/16 at 15:00; Stop 09/02/16 at 13:11; Status DC Phytonadione 10 mg/Sodium Chloride 51 ml @ 102 mls/hr 1X ONCE IV Last administered on 08/24/16 15:14; Start 08/24/16 at 14:30; Stop 08/24/16 at 14:59 ; Status DC Vasopressin/ Dextrose (Vasostrict) 102 ml @ 6 mls/hr CONT PRN IV SEE I/O RECORD Last administered on 08/26/16 05:44; Start 08/24/16 at 18:15; Stop at 18:47; Status DC Acetaminophen 650 mg 650 mg PRN Q6HRS PRN PEG MILD PAIN / TEMP Last administered on 09/06/16 22:14; Start 08/24/16 at 20:45 Levofloxacin/ Dextrose (LEVAQUIN 500mg PREMIX) 100 ml @ 100 mls/hr 1X ONCE IV Last administered on 08/25/16 08:06; Start 08/25/16 at 08:00; Stop 08/25/16 at 08:59; Status DC Insulin Aspart (Novolog) 0-9 UNITS TIDWMEALS SQ Last administered on 08/25/16 17:23; Start 08/25/16 at 08:00; Stop 08/25/16 at 19:32; Status DC Dextrose 12.5 gm PRN Q15MIN PRN IV SEE COMMENTS Last administered on 09/02/16 06:08; Start 08/25/16 at 07:30 Insulin Aspart 10 units 10 units 1X ONCE SQ Last administered on 08/25/16 08: 08; Start 08/25/16 at 08:00; Stop 08/25/16 at 08:01; Status DC Sodium Chloride 1,000 ml @ 50 mls/hr Q20H IV Last administered on 08/31/16 07: 36; Start 08/25/16 at 11:00; Stop 08/31/16 at 18:09; Status DC Potassium Chloride/Sodium Chloride (Iv Sodium Chloride 0.45%) 1,015 ml @ 75 mls /hr 1X ONCE IV Last administered on 08/25/16 10:55; Start 08/25/16 at 11:00; Stop 08/26/16 at 00:31; Status DC Insulin Aspart 10 units 10 units 1X ONCE SQ Last administered on 08/25/16 12: 42; Start 08/25/16 at 12:45; Stop 08/25/16 at 12:46; Status DC Vancomycin HCl/ Sodium Chloride (Iv Sodium Chloride 0.9% 250ml) 250 ml @ 250 mls/hr Q18H IV Last administered on 08/26/16 06:39; Start 08/25/16 at 13:00; Stop 08/26/16 at 08:18; Status DC Insulin Aspart 0-9 UNITS Q6HRS SQ Last administered on 09/07/16 11:59; Start 08/26/16 at 00:00 Levofloxacin/ Dextrose 100 ml @ 100 mls/hr 1X ONCE IV Last administered on 09:28; Start 08/26/16 at 09:30; Stop 08/26/16 at 10:29; Status DC Potassium Chloride/Sodium Chloride (Iv Sodium Chloride 0.45%) 1,015 ml @ 75 mls /hr 1X ONCE IV Last administered on 08/26/16 15:23; Start 08/26/16 at 11:00; Stop 08/27/16 at 00:31; Status DC Hydrocortisone Sodium Succinate 100 mg 100 mg BID IV Last administered on 08:15; Start 08/27/16 at 09:00; Stop 08/30/16 at 09:26; Status DC Amino Acids/ Electrolytes/ Dextrose 1,000 ml @ 80 mls/hr [id number] IV Last administered on 09/02/16 00:11; Start 08/27/16 at 12:30; Stop 09/02/16 at 08:13; Status DC Potassium Chloride (KCl Premix 20meq) 50 ml @ 50 mls/hr 1X ONCE IV Last administered on 08/27/16 15:29; Start 08/27/16 at 12:30; Stop 08/27/16 at 13:29; Status DC Insulin Aspart 15 units 15 units 1X ONCE SQ Last administered on 08/28/16 07: 13; Start 08/28/16 at 07:15; Stop 08/28/16 at 07:16; Status DC Propofol 100 ml @ As Directed STK-MED ONCE IV ; Start 08/29/16 at 16:23; Stop at 16:24; Status DC Propofol (Diprivan) 100 ml @ 0 mls/hr CONT PRN IV SEE I/O RECORD Last administered on 08/29/16 16:30; Start 08/29/16 at 18:00; Stop 09/02/16 at 14:32; Status DC Insulin Aspart 6 units 6 units 1X ONCE SQ Last administered on 08/30/16 08:18 ; Start 08/30/16 at 07:15; Stop 08/30/16 at 07:16; Status DC Potassium Chloride (KCl Premix 20meq) 50 ml @ 50 mls/hr Q1H IV Last administered on 08/30/16 12:00; Start 08/30/16 at 07:30; Stop 08/30/16 at 09:29; Status DC Hydrocortisone Sodium Succinate (Solu-Cortef) 50 mg BID IV Last administered on 08/31/16 09:28; Start 08/30/16 at 21:00; Stop 08/31/16 at 09:41; Status DC Insulin Aspart (Novolog) 10 units 1X ONCE SQ Last administered on 08/31/16 00: 49; Start 08/31/16 at 01:00; Stop 08/31/16 at 01:01; Status DC Hydrocortisone Sodium Succinate (Solu-Cortef) 25 mg BID IV Last administered on 09/01/16 09:27; Start 08/31/16 at 21:00; Stop 09/01/16 at 12:11; Status DC Insulin Aspart (Novolog) 10 units TIDAC SQ Last administered on 08/31/16 16:36 ; Start 08/31/16 at 11:30; Stop 09/01/16 at 08:59; Status DC Insulin Detemir 15 units 15 units DAILY10 SQ Last administered on 08/31/16 11: 59; Start 08/31/16 at 11:30; Stop 09/01/16 at 08:59; Status DC Potassium Chloride (KCl Premix 20meq) 50 ml @ 50 mls/hr Q1H IV Last administered on 08/31/16 16:32; Start 08/31/16 at 12:00; Stop 08/31/16 at 15:59; Status DC Potassium Chloride (KCl Oral Soln) 20 meq 1X ONCE PEG ; Start 08/31/16 at 15:00 ; Stop 08/31/16 at 15:00; Status DC Potassium Chloride (KCl Oral Soln) 20 meq DAILY PEG Last administered on 09:23; Start 09/01/16 at 09:00 Potassium Chloride (KCl Oral Soln) 40 meq 1X ONCE PEG Last administered on 08/31 16:32; Start 08/31/16 at 14:30; Stop 08/31/16 at 14:31; Status DC Insulin Aspart (Novolog) 10 units Q6HRS SQ Last administered on 09/02/16 00:23 ; Start 09/01/16 at 12:00; Stop 09/02/16 at 08:13; Status DC Insulin Detemir (Levemir) 20 units QHS SQ Last administered on 09/01/16 21:00; Start 09/01/16 at 21:00; Stop 09/02/16 at 08:13; Status DC Cefpodoxime Proxetil (Vantin) 100 mg BID PO Last administered on 09/08/16 09: 24; Start 09/01/16 at 10:00 Metoclopramide HCl (Reglan) 5 mg QIDACHS IV Last administered on 09/02/16 12:41 ; Start 09/01/16 at 11:30; Stop 09/02/16 at 13:11; Status DC Insulin Aspart (Novolog) 5 units Q6HRS SQ ; Start 09/02/16 at 12:00; Stop at 12:10; Status DC Insulin Detemir (Levemir) 10 units QHS SQ Last administered on 09/03/16 21:09 ; Start 09/02/16 at 21:00; Stop 09/04/16 at 10:14; Status DC Furosemide (Lasix) 40 mg 1X ONCE IVP Last administered on 09/02/16 08:47; Start 09/02/16 at 08:15; Stop 09/02/16 at 08:23; Status DC Levetiracetam (Keppra) 500 mg BID PEG Last administered on 09/08/16 09:35; Start 09/02/16 at 21:00 Pantoprazole Sodium (Protonix) 40 mg DAILYAC PO ; Start 09/03/16 at 07:30; Stop 09/03/16 at 07:30; Status DC Metoclopramide HCl (Reglan) 10 mg QIDACHS PO Last administered on 09/08/16 06: 01; Start 09/02/16 at 16:30 Levothyroxine Sodium (Synthroid) 100 mcg DAILY07 PO Last administered on 06:01; Start 09/03/16 at 07:00 Warfarin Sodium (Coumadin) 5 mg DAILY16 PO Last administered on 09/02/16 15:52 ; Start 09/02/16 at 16:00; Stop 09/03/16 at 08:31; Status DC Warfarin Sodium (Coumadin Per Pharmacy) 1 each PRN DAILY PRN MC SEE COMMENTS; Start 09/02/16 at 13:15; Stop 09/03/16 at 09:09; Status DC Lansoprazole (Prevacid) 30 mg DAILY PEG Last administered on 09/08/16 09:24; Start 09/03/16 at 09:00 Enoxaparin Sodium (Lovenox 60mg Syringe) 60 mg Q12HR SQ Last administered on 21:48; Start 09/02/16 at 15:00; Stop 09/03/16 at 08:31; Status DC Furosemide (Lasix) 40 mg 1X ONCE IVP Last administered on 09/03/16 14:15; Start 09/03/16 at 10:15; Stop 09/03/16 at 10:16; Status DC Info (Anti-Coagulation Monitoring By Pharmacy) 1 each PRN DAILY PRN MC SEE COMMENTS Last administered on 09/03/16 14:14; Start 09/03/16 at 14:00; Stop 05/13 at 07:59; Status DC Insulin Detemir (Levemir) 15 units QHS SQ Last administered on 09/04/16 20:47 ; Start 09/04/16 at 21:00; Stop 09/05/16 at 08:39; Status DC Insulin Detemir (Levemir) 18 units QHS SQ ; Start 09/05/16 at 21:00; Stop at 21:00; Status DC Insulin Detemir (Levemir) 20 units QHS SQ Last administered on 09/07/16 21:43 ; Start 09/05/16 at 21:00 Iohexol (Omnipaque 300 Mg/ml) 50 ml STK-MED ONCE .ROUTE ; Start 09/06/16 at 10: 15; Stop 09/06/16 at 10:16; Status DC Lidocaine/Sodium Bicarbonate 20 ml 20 ml STK-MED ONCE IJ ; Start 09/06/16 at 10: 16; Stop 09/06/16 at 10:17; Status DC Heparin Sodium/ Sodium Chloride 500 ml @ As Directed STK-MED ONCE .ROUTE ; Start 09/06/16 at 10:16; Stop 09/06/16 at 10:17; Status DC Heparin Sodium/ Sodium Chloride 1,000 unit 1X ONCE IART Last administered on 11:15; Start 09/06/16 at 11:00; Stop 09/06/16 at 11:03; Status DC Lidocaine/Sodium Bicarbonate (Buffered Lidocaine 1%) 20 ml 1X ONCE IJ Last administered on 09/06/16 11:15; Start 09/06/16 at 11:00; Stop 09/06/16 at 11:03 ; Status DC Iohexol (Omnipaque 300 Mg/ml) 50 ml 1X ONCE IART Last administered on 11:15; Start 09/06/16 at 11:00; Stop 09/06/16 at 11:03; Status DC Vitamin A/Vitamin D (Vitamin A & D Ointment) 1 gaivn PRN TID PRN TP SKIN PROTECTION Last administered on 09/06/16 20:49; Start 09/06/16 at 18:02 Active Scripts Active Reported Milk Of Magnesia (Magnesium Hydroxide) 2,400 Mg/10 Ml Oral.susp 2,400 Mg PO DAILY PRN Dulcolax (Bisacodyl) 10 Mg Supp.rect 10 Mg RC PRN DAILY PRN Aspirin 325 Mg Tablet 1 Tab PEG DAILY Tylenol (Acetaminophen) 325 Mg Tablet 2 Tab PO PRN Q6HRS PRN Vitamin B Complex 1 Each Tablet 1 Tab PO DAILY Vitamin D3 (Cholecalciferol (Vitamin D3)) 1,000 Unit Tablet 2,000 Unit PO DAILY Keppra (Levetiracetam) 500 Mg Tablet 500 Mg PO BID Vitals/I & O Vital Sign - Last 24 Hours 09/07/16 09/07/16 09/07/16 09/07/16 11:00 11:08 11:50 15:00 Temp 97.9 98.0 97.9 98.0 Pulse 92 94 Resp 20 22 B/P 89/64 105/78 102/69 Pulse Ox 99 100 O2 Delivery Nasal Cannula Nasal Cannula Nasal Cannula O2 Flow Rate 3.0 3.0 3.0 09/07/16 09/07/16 09/07/16 09/07/16 15:07 19:00 19:42 20:00 Temp 98.9 98.9 Pulse 94 Resp 22 B/P 118/69 Pulse Ox 99 98 O2 Delivery Nasal Cannula Nasal Cannula Nasal Cannula Nasal Cannula O2 Flow Rate 3.0 3.0 2.0 3.0 09/07/16 09/08/16 09/08/16 09/08/16 22:32 03:00 07:00 08:30 Temp 99.8 98.8 98.5 99.8 98.8 98.5 Pulse 93 93 88 Resp 20 18 B/P 115/76 110/70 115/65 Pulse Ox 95 96 94 O2 Delivery Nasal Cannula Nasal Cannula Nasal Cannula Nasal Cannula O2 Flow Rate 3.0 3.0 3.0 3.0 Intake and Output 09/07/16 09/07/16 09/08/16 15:00 23:00 07:00 Intake Total 320 ml 320 ml 467 ml Output Total 0 ml 1325 ml 1400 ml Balance 320 ml -1005 ml -933 ml Problem List Problems Medical Problems: (1) HAP (hospital-acquired pneumonia) Status: Acute (2) Pneumonia Status: Acute Assessment Seems stable, GI-fernández. Plan of Care: Continue current Tx, JOANIE Canseco MD Sep 08, 2016 10:29
--- NOTE | 2016-09-08 10:51 | PDOC ---
PROGRESS NOTES Chief Complaint Chief Complaint CC- Resp failure - was intubated, breathing well now 1. Severe Sepsis, pneumonia 2. PNA, bed bound, , aspiration 3. Bed bound, non verbal, hx down's, and hx CVA 4. Dysphagia, indwelling PEG 5 MAHAD, vasomotor, now recovery phase with marked (critical) hypokalemia, 6. Gap metabolic acidosis, recent vomiting, severe sepsis 7. hypothyroidism 8. down syndrome 9. possible gastroparesis 10. h/o CVA 11. LEFT arm dvt with PICC. 12. rectal bleeding with ac on 09/02 13. anemia, 2/2 chronic dz and rectal bleeding History of Present Illness History of Present Illness Patient was lying in the bed at the time of evaluation, was in no acute distress , pt. is nonverbal and that is his baseline, Peg tube feeding is on, pt.'s mother was present in the room, plan of care discussed with her and she agreed to discharge plan as pt. is approached his baseline. Vitals Vitals Vital Signs Date Time Temp Pulse Resp B/P Pulse Ox O2 Delivery O2 Flow Rate FiO2 09/08/16 08:30 Nasal Cannula 3.0 09/08/16 07:00 98.5 88 18 115/65 94 98.5 Physical Exam Physical Exam no follow commands or talk as baseline General: Alert, No acute distress, Other ( awake, ) Heart: Regular rate, No murmurs Lungs: Clear Abdomen: Soft, No tenderness Extremities: No clubbing Skin: No breakdown, No significant lesion Labs LABS Laboratory Tests Test 09/07/16 11:45 09/07/16 17:15 09/08/16 03:31 09/08/16 03:51 Glucose (Fingerstick) 175mg/dL (70-99) 130mg/dL (70-99) Sodium Level 142mmol/L (136-145) Potassium Level 4.2mmol/L (3.5-5.1) Chloride Level 104mmol/L (98-107) Carbon Dioxide Level 33mmol/L (21-32) Anion Gap 5 (6-14) Blood Urea Nitrogen 18mg/dL (8-26) Creatinine 0.8mg/dL (0.7-1.3) Estimated GFR (Cockcroft-Gault) 121.4 Glucose Level 115mg/dL (70-99) Calcium Level 8.7mg/dL (8.5-10.1) White Blood Count 12.1x10^3/uL (4.0-11.0) Red Blood Count 2.62x10^6/uL (4.30-5.70) Hemoglobin 8.6g/dL (13.0-17.5) Hematocrit 26.6% (39.0-53.0) Mean Corpuscular Volume 102fL (79-100) Mean Corpuscular Hemoglobin 33pg (25-35) Mean Corpuscular Hemoglobin Concent 33g/dL (31-37) Red Cell Distribution Width 22.3% (11.5-14.5) Platelet Count 326x10^3/uL (140-400) Neutrophils (%) (Auto) 75% (31-73) Lymphocytes (%) (Auto) 17% (24-48) Monocytes (%) (Auto) 6% (0-9) Eosinophils (%) (Auto) 1% (0-3) Basophils (%) (Auto) 1% (0-3) Neutrophils # (Auto) 9.1x10^3uL (1.8-7.7) Lymphocytes # (Auto) 2.0x10^3/uL (1.0-4.8) Monocytes # (Auto) 0.7x10^3/uL (0.0-1.1) Eosinophils # (Auto) 0.1x10^3/uL (0.0-0.7) Basophils # (Auto) 0.1x10^3/uL (0.0-0.2) Test 09/08/16 08:03 Glucose (Fingerstick) 120mg/dL (70-99) Review of Systems Review of Systems Afebrile, no CP, awake, nonverbal, Peg tube feeding on Assessment and Plan Assessmemt and Plan Assessment: 1. Severe Sepsis, pneumonia 2. PNA, bed bound, , aspiration 3. Bed bound, non verbal, hx down's, and hx CVA 4. Dysphagia, indwelling PEG 5 MAHAD, vasomotor, now recovery phase with marked (critical) hypokalemia, 6. Gap metabolic acidosis, recent vomiting, severe sepsis 7. hypothyroidism 8. down syndrome 9. possible gastroparesis 10. h/o CVA 11. LEFT arm dvt with PICC. 12. rectal bleeding with ac on 09/02 13. anemia, 2/2 chronic dz and rectal bleeding Plan: 1. discharge plan discussed with pt.'s mother and she agreed to it 2. will discharge home tomorrow if subspecialities will agree 3. Continue antibiotics per ID recommendations 4. F/u with Pul, ID, and GI 5. Recheck labs in AM 6. Continue PT/OT 7. Appreciate subspecialities inputs and recommendations Problems Medical Problems: (1) HAP (hospital-acquired pneumonia) Status: Acute (2) Pneumonia Status: Acute Problems: Comment Review of Relevant I have reviewed the following items kassie (where applicable) has been applied. Labs Laboratory Tests Test 09/06/16 11:53 09/06/16 15:55 09/06/16 22:56 09/07/16 04:20 Glucose (Fingerstick) 83mg/dL (70-99) 113mg/dL (70-99) 219mg/dL (70-99) White Blood Count 10.0x10^3/uL (4.0-11.0) Red Blood Count 2.28x10^6/uL (4.30-5.70) Hemoglobin 7.5g/dL (13.0-17.5) Hematocrit 23.0% (39.0-53.0) Mean Corpuscular Volume 101fL (79-100) Mean Corpuscular Hemoglobin 33pg (25-35) Mean Corpuscular Hemoglobin Concent 33g/dL (31-37) Red Cell Distribution Width 21.7% (11.5-14.5) Platelet Count 257x10^3/uL (140-400) Neutrophils (%) (Auto) 74% (31-73) Lymphocytes (%) (Auto) 18% (24-48) Monocytes (%) (Auto) 7% (0-9) Eosinophils (%) (Auto) 1% (0-3) Basophils (%) (Auto) 1% (0-3) Neutrophils # (Auto) 7.3x10^3uL (1.8-7.7) Lymphocytes # (Auto) 1.8x10^3/uL (1.0-4.8) Monocytes # (Auto) 0.6x10^3/uL (0.0-1.1) Eosinophils # (Auto) 0.1x10^3/uL (0.0-0.7) Basophils # (Auto) 0.1x10^3/uL (0.0-0.2) Sodium Level 141mmol/L (136-145) Potassium Level 3.8mmol/L (3.5-5.1) Chloride Level 106mmol/L (98-107) Carbon Dioxide Level 32mmol/L (21-32) Anion Gap 3 (6-14) Blood Urea Nitrogen 20mg/dL (8-26) Creatinine 0.9mg/dL (0.7-1.3) Estimated GFR (Cockcroft-Gault) 106.0 Glucose Level 180mg/dL (70-99) Calcium Level 8.1mg/dL (8.5-10.1) Test 09/07/16 11:45 09/07/16 17:15 09/08/16 03:31 09/08/16 03:51 Glucose (Fingerstick) 175mg/dL (70-99) 130mg/dL (70-99) Sodium Level 142mmol/L (136-145) Potassium Level 4.2mmol/L (3.5-5.1) Chloride Level 104mmol/L (98-107) Carbon Dioxide Level 33mmol/L (21-32) Anion Gap 5 (6-14) Blood Urea Nitrogen 18mg/dL (8-26) Creatinine 0.8mg/dL (0.7-1.3) Estimated GFR (Cockcroft-Gault) 121.4 Glucose Level 115mg/dL (70-99) Calcium Level 8.7mg/dL (8.5-10.1) White Blood Count 12.1x10^3/uL (4.0-11.0) Red Blood Count 2.62x10^6/uL (4.30-5.70) Hemoglobin 8.6g/dL (13.0-17.5) Hematocrit 26.6% (39.0-53.0) Mean Corpuscular Volume 102fL (79-100) Mean Corpuscular Hemoglobin 33pg (25-35) Mean Corpuscular Hemoglobin Concent 33g/dL (31-37) Red Cell Distribution Width 22.3% (11.5-14.5) Platelet Count 326x10^3/uL (140-400) Neutrophils (%) (Auto) 75% (31-73) Lymphocytes (%) (Auto) 17% (24-48) Monocytes (%) (Auto) 6% (0-9) Eosinophils (%) (Auto) 1% (0-3) Basophils (%) (Auto) 1% (0-3) Neutrophils # (Auto) 9.1x10^3uL (1.8-7.7) Lymphocytes # (Auto) 2.0x10^3/uL (1.0-4.8) Monocytes # (Auto) 0.7x10^3/uL (0.0-1.1) Eosinophils # (Auto) 0.1x10^3/uL (0.0-0.7) Basophils # (Auto) 0.1x10^3/uL (0.0-0.2) Test 09/08/16 08:03 Glucose (Fingerstick) 120mg/dL (70-99) Laboratory Tests Test 09/07/16 11:45 09/07/16 17:15 09/08/16 03:31 09/08/16 03:51 Glucose (Fingerstick) 175mg/dL (70-99) 130mg/dL (70-99) Sodium Level 142mmol/L (136-145) Potassium Level 4.2mmol/L (3.5-5.1) Chloride Level 104mmol/L (98-107) Carbon Dioxide Level 33mmol/L (21-32) Anion Gap 5 (6-14) Blood Urea Nitrogen 18mg/dL (8-26) Creatinine 0.8mg/dL (0.7-1.3) Estimated GFR (Cockcroft-Gault) 121.4 Glucose Level 115mg/dL (70-99) Calcium Level 8.7mg/dL (8.5-10.1) White Blood Count 12.1x10^3/uL (4.0-11.0) Red Blood Count 2.62x10^6/uL (4.30-5.70) Hemoglobin 8.6g/dL (13.0-17.5) Hematocrit 26.6% (39.0-53.0) Mean Corpuscular Volume 102fL (79-100) Mean Corpuscular Hemoglobin 33pg (25-35) Mean Corpuscular Hemoglobin Concent 33g/dL (31-37) Red Cell Distribution Width 22.3% (11.5-14.5) Platelet Count 326x10^3/uL (140-400) Neutrophils (%) (Auto) 75% (31-73) Lymphocytes (%) (Auto) 17% (24-48) Monocytes (%) (Auto) 6% (0-9) Eosinophils (%) (Auto) 1% (0-3) Basophils (%) (Auto) 1% (0-3) Neutrophils # (Auto) 9.1x10^3uL (1.8-7.7) Lymphocytes # (Auto) 2.0x10^3/uL (1.0-4.8) Monocytes # (Auto) 0.7x10^3/uL (0.0-1.1) Eosinophils # (Auto) 0.1x10^3/uL (0.0-0.7) Basophils # (Auto) 0.1x10^3/uL (0.0-0.2) Test 09/08/16 08:03 Glucose (Fingerstick) 120mg/dL (70-99) Microbiology 09/02/16 Blood Culture - Final, Complete NO GROWTH AFTER 5 DAYS 08/23/16 Urine Culture - Final, Complete 08/23/16 Urine Culture Result 1 (SHANON) - Final, Complete 08/23/16 Antimicrobic Susceptibility - Final, Complete Medications Current Medications Sodium Chloride 1,000 ml @ 1,000 mls/hr 1X ONCE IV Last administered on 11:16; Start 08/23/16 at 11:15; Stop 08/23/16 at 12:14; Status DC Sodium Chloride (Iv Sodium Chloride 0.9% 1000ml Bag) 1,000 ml @ 1,000 mls/hr 1X ONCE IV Last administered on 08/23/16 11:30; Start 08/23/16 at 11:30; Stop 08/23/16 at 12:29; Status DC Vancomycin HCl (Vanco Per Pharmacy) 1 each PRN DAILY PRN MC SEE COMMENTS Last administered on 08/25/16 13:04; Start 08/23/16 at 11:30; Stop 08/26/16 at 08:18; Status DC Piperacillin Sod/ Tazobactam Sod 1 each 1 each PRN DAILY PRN MC SEE COMMENTS; Start 08/23/16 at 11:30; Stop 08/25/16 at 09:54; Status DC Levofloxacin/ Dextrose 100 ml @ 100 mls/hr 1X ONCE IV Last administered on 12:58; Start 08/23/16 at 11:30; Stop 08/23/16 at 12:29; Status DC Piperacillin Sod/ Tazobactam Sod 4.5 gm/Sodium Chloride 100 ml @ 200 mls/hr 1X ONCE IV Last administered on 08/23/16 12:00; Start 08/23/16 at 12:00; Stop 08/23/16 at 12:29; Status DC Vancomycin HCl 1.5 gm/Sodium Chloride 500 ml @ 250 mls/hr 1X ONCE IV Last administered on 08/23/16 12:30; Start 08/23/16 at 12:30; Stop 08/23/16 at 14:29 ; Status DC Sodium Chloride 1,000 ml @ 1,000 mls/hr 1X ONCE IV Last administered on 12:46; Start 08/23/16 at 12:30; Stop 08/23/16 at 13:29; Status DC Piperacillin Sod/ Tazobactam Sod 3.375 gm/Sodium Chloride 50 ml @ 100 mls/hr Q6HRS IV Last administered on 09/01/16 05:29; Start 08/23/16 at 18:00; Stop 09/01/16 at 09:08; Status DC Vancomycin HCl/ Sodium Chloride (Iv Sodium Chloride 0.9% 250ml) 250 ml @ 250 mls/hr Q24H IV ; Start 08/24/16 at 13:00; Status Cancel Vancomycin HCl 1 each 1X ONCE MC ; Start 08/25/16 at 12:30; Stop 08/25/16 at 12: 31; Status DC Labetalol HCl (Normodyne) 10 mg PRN Q2HR PRN IVP HYPERTENSION, SEE COMMENTS; Start 08/23/16 at 15:45 Aspirin (Luis Armando Aspirin) 325 mg DAILY PEG Last administered on 09/08/16 09:24; Start 08/24/16 at 09:00 Bisacodyl (Dulcolax Supp) 10 mg PRN DAILY PRN RC CONSTIPATION Last administered on 08/29/16 15:48; Start 08/23/16 at 15:45 Vitamin D (Vitamin D3) 2,000 unit DAILY PO Last administered on 09/08/16 09:23 ; Start 08/24/16 at 09:00 Levetiracetam (Keppra) 500 mg BID PO ; Start 08/23/16 at 21:00; Stop 08/23/16 at 21:00; Status DC Vitamin B Complex (Hector B) 1 tab DAILY PO Last administered on 09/08/16 09:24 ; Start 08/24/16 at 09:00 Magnesium Hydroxide (Milk Of Magnesia) 2,400 mg PRN DAILY PRN PO CONSTIPATION; Start 08/23/16 at 15:45 Acetaminophen 500 mg 500 mg PRN Q6HRS PRN PO MILD PAIN / TEMP; Start 08/23/16 at 15:45 Levetiracetam/ Sodium Chloride (Keppra/Iv Sodium Chloride 0.9% 100ml) 105 ml @ 400 mls/hr Q12HR IV Last administered on 09/02/16 08:49; Start 08/23/16 at 21: 00; Stop 09/02/16 at 13:11; Status DC Pantoprazole Sodium (Protonix Vial) 40 mg DAILYAC IVP Last administered on 08:36; Start 08/24/16 at 07:30; Stop 09/02/16 at 13:11; Status DC Heparin Sodium (Porcine) 5000 unit 5,000 unit Q8HRS SQ ; Start 08/23/16 at 22:00 ; Stop 08/23/16 at 22:00; Status DC Sodium Bicarbonate/ Dextrose 1,150 ml @ 150 mls/hr Q7H40M IV Last administered on 08/25/16 08:05; Start 08/23/16 at 16:30; Stop 08/25/16 at 10:35; Status DC Sodium Bicarbonate 50 meq 1X ONCE IV Last administered on 08/23/16 16:24; Start 08/23/16 at 16:15; Stop 08/23/16 at 16:17; Status DC Albuterol/ Ipratropium 3 ml 3 ml RTQID NEB Last administered on 09/08/16 07:30 ; Start 08/23/16 at 20:00 Vancomycin HCl 750 mg/Sodium Chloride 250 ml @ 250 mls/hr Q24H IV Last administered on 08/24/16 12:15; Start 08/24/16 at 13:00; Stop 08/25/16 at 12:55 ; Status DC Norepinephrine Bitartrate 8 mg/ Sodium Chloride 258 ml @ 0 mls/hr CONT PRN IV SEE I/O RECORD Last administered on 08/25/16 00:28; Start 08/23/16 at 18:15; Stop 09/01/16 at 09:01; Status DC Sodium Chloride (Iv Sodium Chloride 0.9% 1000ml Bag) 1,000 ml @ 500 mls/hr Q2H IV Last administered on 08/23/16 17:00; Start 08/23/16 at 18:30; Stop at 20:29; Status DC Hydrocortisone Sodium Succinate (Solu-Cortef) 100 mg Q8HRS IV Last administered on 08/26/16 14:54; Start 08/23/16 at 22:30; Stop 08/26/16 at 16:49; Status DC Succinylcholine Chloride (Anectine) 200 mg STK-MED ONCE .ROUTE ; Start 08/24/16 at 04:15; Stop 08/24/16 at 04:16; Status DC Etomidate 20 mg 20 mg STK-MED ONCE IV ; Start 08/24/16 at 04:15; Stop 08/24/16 at 04:16; Status DC Fentanyl Citrate (Fentanyl 600 Mcg/30 ml HE[employer]AT P[employer]ER) 30 ml @ 0 mls/hr CONT PRN IV PROTOCOL Last administered on 08/30/16 04:54; Start 08/24/16 at 04:45; Stop 04/12 at 08:03; Status DC Fentanyl Citrate (Fentanyl 2ml Vial) 25 mcg PRN Q1HR PRN IV COMM Last administered on 08/29/16 07:44; Start 08/24/16 at 04:45; Stop 08/30/16 at 16:51; Status DC Fentanyl Citrate (Fentanyl 2ml Vial) 50 mcg PRN Q1HR PRN IV COMM; Start at 04:45; Status Cancel Chlorhexidine Gluconate 15 ml 15 ml BID MM Last administered on 08/30/16 08:15 ; Start 08/24/16 at 09:00; Stop 08/30/16 at 22:16; Status DC Midazolam HCl 100 ml @ 0 mls/hr CONT PRN IV PER PROTOCOL Last administered on 10:50; Start 08/24/16 at 04:45; Stop 09/01/16 at 09:02; Status DC Midazolam HCl 100 ml @ As Directed STK-MED ONCE IV ; Start 08/24/16 at 04:52; Stop 08/24/16 at 04:53; Status DC Sodium Chloride 1,000 ml @ 150 mls/hr Q6H40M IV Last administered on 06:13; Start 08/24/16 at 05:45; Stop 08/24/16 at 09:59; Status DC Vasopressin 40 unit/Dextrose 102 ml @ 6 mls/hr 1X ONCE IV Last administered on 08/24/16 06:12; Start 08/24/16 at 06:00; Stop 08/24/16 at 20:00; Status DC Phenylephrine HCl 20 mg/Sodium Chloride 252 ml @ 0 mls/hr CONT PRN IV SEE I/O RECORD Last administered on 08/24/16 07:28; Start 08/24/16 at 05:45; Stop 09/03 at 08:03; Status DC Albumin Human 500 ml @ 125 mls/hr 1X ONCE IV Last administered on 08/24/16 06:20; Start 08/24/16 at 05:45; Stop 08/24/16 at 09:44; Status DC Micafungin Sodium 100 mg/Dextrose 100 ml @ 100 mls/hr Q24H IV Last administered on 08/26/16 09:29; Start 08/24/16 at 09:00; Stop 08/27/16 at 07:37; Status DC Epinephrine HCl/ Sodium Chloride (Adrenalin/Iv Sodium Chloride 0.9% 250ml) 254 ml @ 0 mls/hr CONT PRN IV SEE I/O RECORD; Start 08/24/16 at 07:30; Status Cancel Epinephrine HCl (Adrenalin) 30 mg STK-MED ONCE .ROUTE ; Start 08/23/16 at 12:00 ; Stop 08/24/16 at 10:38; Status DC Epinephrine HCl 4 mg STK-MED ONCE .ROUTE ; Start 08/23/16 at 12:00; Stop at 10:38; Status DC Sodium Bicarbonate 100 meq 100 meq STK-MED ONCE .ROUTE ; Start 08/23/16 at 12:00 ; Stop 08/24/16 at 10:38; Status DC Levothyroxine Sodium 50 mcg/ Sodium Chloride 5 ml @ 100 mls/hr DAILY IVP Last administered on 09/02/16 08:50; Start 08/24/16 at 15:00; Stop 09/02/16 at 13:11; Status DC Phytonadione 10 mg/Sodium Chloride 51 ml @ 102 mls/hr 1X ONCE IV Last administered on 08/24/16 15:14; Start 08/24/16 at 14:30; Stop 08/24/16 at 14:59 ; Status DC Vasopressin/ Dextrose (Vasostrict) 102 ml @ 6 mls/hr CONT PRN IV SEE I/O RECORD Last administered on 08/26/16 05:44; Start 08/24/16 at 18:15; Stop at 18:47; Status DC Acetaminophen 650 mg 650 mg PRN Q6HRS PRN PEG MILD PAIN / TEMP Last administered on 09/06/16 22:14; Start 08/24/16 at 20:45 Levofloxacin/ Dextrose (LEVAQUIN 500mg PREMIX) 100 ml @ 100 mls/hr 1X ONCE IV Last administered on 08/25/16 08:06; Start 08/25/16 at 08:00; Stop 08/25/16 at 08:59; Status DC Insulin Aspart (Novolog) 0-9 UNITS TIDWMEALS SQ Last administered on 08/25/16 17:23; Start 08/25/16 at 08:00; Stop 08/25/16 at 19:32; Status DC Dextrose 12.5 gm PRN Q15MIN PRN IV SEE COMMENTS Last administered on 09/02/16 06:08; Start 08/25/16 at 07:30 Insulin Aspart 10 units 10 units 1X ONCE SQ Last administered on 08/25/16 08: 08; Start 08/25/16 at 08:00; Stop 08/25/16 at 08:01; Status DC Sodium Chloride 1,000 ml @ 50 mls/hr Q20H IV Last administered on 08/31/16 07: 36; Start 08/25/16 at 11:00; Stop 08/31/16 at 18:09; Status DC Potassium Chloride/Sodium Chloride (Iv Sodium Chloride 0.45%) 1,015 ml @ 75 mls /hr 1X ONCE IV Last administered on 08/25/16 10:55; Start 08/25/16 at 11:00; Stop 08/26/16 at 00:31; Status DC Insulin Aspart 10 units 10 units 1X ONCE SQ Last administered on 08/25/16 12: 42; Start 08/25/16 at 12:45; Stop 08/25/16 at 12:46; Status DC Vancomycin HCl/ Sodium Chloride (Iv Sodium Chloride 0.9% 250ml) 250 ml @ 250 mls/hr Q18H IV Last administered on 08/26/16 06:39; Start 08/25/16 at 13:00; Stop 08/26/16 at 08:18; Status DC Insulin Aspart 0-9 UNITS Q6HRS SQ Last administered on 09/07/16 11:59; Start 08/26/16 at 00:00 Levofloxacin/ Dextrose 100 ml @ 100 mls/hr 1X ONCE IV Last administered on 09:28; Start 08/26/16 at 09:30; Stop 08/26/16 at 10:29; Status DC Potassium Chloride/Sodium Chloride (Iv Sodium Chloride 0.45%) 1,015 ml @ 75 mls /hr 1X ONCE IV Last administered on 08/26/16 15:23; Start 08/26/16 at 11:00; Stop 08/27/16 at 00:31; Status DC Hydrocortisone Sodium Succinate 100 mg 100 mg BID IV Last administered on 08:15; Start 08/27/16 at 09:00; Stop 08/30/16 at 09:26; Status DC Amino Acids/ Electrolytes/ Dextrose 1,000 ml @ 80 mls/hr [id number] IV Last administered on 09/02/16 00:11; Start 08/27/16 at 12:30; Stop 09/02/16 at 08:13; Status DC Potassium Chloride (KCl Premix 20meq) 50 ml @ 50 mls/hr 1X ONCE IV Last administered on 08/27/16 15:29; Start 08/27/16 at 12:30; Stop 08/27/16 at 13:29; Status DC Insulin Aspart 15 units 15 units 1X ONCE SQ Last administered on 08/28/16 07: 13; Start 08/28/16 at 07:15; Stop 08/28/16 at 07:16; Status DC Propofol 100 ml @ As Directed STK-MED ONCE IV ; Start 08/29/16 at 16:23; Stop at 16:24; Status DC Propofol (Diprivan) 100 ml @ 0 mls/hr CONT PRN IV SEE I/O RECORD Last administered on 08/29/16 16:30; Start 08/29/16 at 18:00; Stop 09/02/16 at 14:32; Status DC Insulin Aspart 6 units 6 units 1X ONCE SQ Last administered on 08/30/16 08:18 ; Start 08/30/16 at 07:15; Stop 08/30/16 at 07:16; Status DC Potassium Chloride (KCl Premix 20meq) 50 ml @ 50 mls/hr Q1H IV Last administered on 08/30/16 12:00; Start 08/30/16 at 07:30; Stop 08/30/16 at 09:29; Status DC Hydrocortisone Sodium Succinate (Solu-Cortef) 50 mg BID IV Last administered on 08/31/16 09:28; Start 08/30/16 at 21:00; Stop 08/31/16 at 09:41; Status DC Insulin Aspart (Novolog) 10 units 1X ONCE SQ Last administered on 08/31/16 00: 49; Start 08/31/16 at 01:00; Stop 08/31/16 at 01:01; Status DC Hydrocortisone Sodium Succinate (Solu-Cortef) 25 mg BID IV Last administered on 09/01/16 09:27; Start 08/31/16 at 21:00; Stop 09/01/16 at 12:11; Status DC Insulin Aspart (Novolog) 10 units TIDAC SQ Last administered on 08/31/16 16:36 ; Start 08/31/16 at 11:30; Stop 09/01/16 at 08:59; Status DC Insulin Detemir 15 units 15 units DAILY10 SQ Last administered on 08/31/16 11: 59; Start 08/31/16 at 11:30; Stop 09/01/16 at 08:59; Status DC Potassium Chloride (KCl Premix 20meq) 50 ml @ 50 mls/hr Q1H IV Last administered on 08/31/16 16:32; Start 08/31/16 at 12:00; Stop 08/31/16 at 15:59; Status DC Potassium Chloride (KCl Oral Soln) 20 meq 1X ONCE PEG ; Start 08/31/16 at 15:00 ; Stop 08/31/16 at 15:00; Status DC Potassium Chloride (KCl Oral Soln) 20 meq DAILY PEG Last administered on 09:23; Start 09/01/16 at 09:00 Potassium Chloride (KCl Oral Soln) 40 meq 1X ONCE PEG Last administered on 08/31 16:32; Start 08/31/16 at 14:30; Stop 08/31/16 at 14:31; Status DC Insulin Aspart (Novolog) 10 units Q6HRS SQ Last administered on 09/02/16 00:23 ; Start 09/01/16 at 12:00; Stop 09/02/16 at 08:13; Status DC Insulin Detemir (Levemir) 20 units QHS SQ Last administered on 09/01/16 21:00; Start 09/01/16 at 21:00; Stop 09/02/16 at 08:13; Status DC Cefpodoxime Proxetil (Vantin) 100 mg BID PO Last administered on 09/08/16 09: 24; Start 09/01/16 at 10:00 Metoclopramide HCl (Reglan) 5 mg QIDACHS IV Last administered on 09/02/16 12:41 ; Start 09/01/16 at 11:30; Stop 09/02/16 at 13:11; Status DC Insulin Aspart (Novolog) 5 units Q6HRS SQ ; Start 09/02/16 at 12:00; Stop at 12:10; Status DC Insulin Detemir (Levemir) 10 units QHS SQ Last administered on 09/03/16 21:09 ; Start 09/02/16 at 21:00; Stop 09/04/16 at 10:14; Status DC Furosemide (Lasix) 40 mg 1X ONCE IVP Last administered on 09/02/16 08:47; Start 09/02/16 at 08:15; Stop 09/02/16 at 08:23; Status DC Levetiracetam (Keppra) 500 mg BID PEG Last administered on 09/08/16 09:35; Start 09/02/16 at 21:00 Pantoprazole Sodium (Protonix) 40 mg DAILYAC PO ; Start 09/03/16 at 07:30; Stop 09/03/16 at 07:30; Status DC Metoclopramide HCl (Reglan) 10 mg QIDACHS PO Last administered on 09/08/16 06: 01; Start 09/02/16 at 16:30 Levothyroxine Sodium (Synthroid) 100 mcg DAILY07 PO Last administered on 06:01; Start 09/03/16 at 07:00 Warfarin Sodium (Coumadin) 5 mg DAILY16 PO Last administered on 09/02/16 15:52 ; Start 09/02/16 at 16:00; Stop 09/03/16 at 08:31; Status DC Warfarin Sodium (Coumadin Per Pharmacy) 1 each PRN DAILY PRN MC SEE COMMENTS; Start 09/02/16 at 13:15; Stop 09/03/16 at 09:09; Status DC Lansoprazole (Prevacid) 30 mg DAILY PEG Last administered on 09/08/16 09:24; Start 09/03/16 at 09:00 Enoxaparin Sodium (Lovenox 60mg Syringe) 60 mg Q12HR SQ Last administered on 21:48; Start 09/02/16 at 15:00; Stop 09/03/16 at 08:31; Status DC Furosemide (Lasix) 40 mg 1X ONCE IVP Last administered on 09/03/16 14:15; Start 09/03/16 at 10:15; Stop 09/03/16 at 10:16; Status DC Info (Anti-Coagulation Monitoring By Pharmacy) 1 each PRN DAILY PRN MC SEE COMMENTS Last administered on 09/03/16 14:14; Start 09/03/16 at 14:00; Stop 05/13 at 07:59; Status DC Insulin Detemir (Levemir) 15 units QHS SQ Last administered on 09/04/16 20:47 ; Start 09/04/16 at 21:00; Stop 09/05/16 at 08:39; Status DC Insulin Detemir (Levemir) 18 units QHS SQ ; Start 09/05/16 at 21:00; Stop at 21:00; Status DC Insulin Detemir (Levemir) 20 units QHS SQ Last administered on 09/07/16 21:43 ; Start 09/05/16 at 21:00 Iohexol (Omnipaque 300 Mg/ml) 50 ml STK-MED ONCE .ROUTE ; Start 09/06/16 at 10: 15; Stop 09/06/16 at 10:16; Status DC Lidocaine/Sodium Bicarbonate 20 ml 20 ml STK-MED ONCE IJ ; Start 09/06/16 at 10: 16; Stop 09/06/16 at 10:17; Status DC Heparin Sodium/ Sodium Chloride 500 ml @ As Directed STK-MED ONCE .ROUTE ; Start 09/06/16 at 10:16; Stop 09/06/16 at 10:17; Status DC Heparin Sodium/ Sodium Chloride 1,000 unit 1X ONCE IART Last administered on 11:15; Start 09/06/16 at 11:00; Stop 09/06/16 at 11:03; Status DC Lidocaine/Sodium Bicarbonate (Buffered Lidocaine 1%) 20 ml 1X ONCE IJ Last administered on 09/06/16 11:15; Start 09/06/16 at 11:00; Stop 09/06/16 at 11:03 ; Status DC Iohexol (Omnipaque 300 Mg/ml) 50 ml 1X ONCE IART Last administered on 11:15; Start 09/06/16 at 11:00; Stop 09/06/16 at 11:03; Status DC Vitamin A/Vitamin D (Vitamin A & D Ointment) 1 gavin PRN TID PRN TP SKIN PROTECTION Last administered on 09/06/16 20:49; Start 09/06/16 at 18:02 Active Scripts Active Reported Milk Of Magnesia (Magnesium Hydroxide) 2,400 Mg/10 Ml Oral.susp 2,400 Mg PO DAILY PRN Dulcolax (Bisacodyl) 10 Mg Supp.rect 10 Mg RC PRN DAILY PRN Aspirin 325 Mg Tablet 1 Tab PEG DAILY Tylenol (Acetaminophen) 325 Mg Tablet 2 Tab PO PRN Q6HRS PRN Vitamin B Complex 1 Each Tablet 1 Tab PO DAILY Vitamin D3 (Cholecalciferol (Vitamin D3)) 1,000 Unit Tablet 2,000 Unit PO DAILY Keppra (Levetiracetam) 500 Mg Tablet 500 Mg PO BID Vitals/I & O Vital Sign - Last 24 Hours 09/07/16 09/07/16 09/07/16 09/07/16 11:00 11:08 11:50 15:00 Temp 97.9 98.0 97.9 98.0 Pulse 92 94 Resp 20 22 B/P 89/64 105/78 102/69 Pulse Ox 99 100 O2 Delivery Nasal Cannula Nasal Cannula Nasal Cannula O2 Flow Rate 3.0 3.0 3.0 09/07/16 09/07/16 09/07/16 09/07/16 15:07 19:00 19:42 20:00 Temp 98.9 98.9 Pulse 94 Resp 22 B/P 118/69 Pulse Ox 99 98 O2 Delivery Nasal Cannula Nasal Cannula Nasal Cannula Nasal Cannula O2 Flow Rate 3.0 3.0 2.0 3.0 09/07/16 09/08/16 09/08/16 09/08/16 22:32 03:00 07:00 08:30 Temp 99.8 98.8 98.5 99.8 98.8 98.5 Pulse 93 93 88 Resp 20 18 B/P 115/76 110/70 115/65 Pulse Ox 95 96 94 O2 Delivery Nasal Cannula Nasal Cannula Nasal Cannula Nasal Cannula O2 Flow Rate 3.0 3.0 3.0 3.0 Intake and Output 09/07/16 09/07/16 09/08/16 15:00 23:00 07:00 Intake Total 320 ml 320 ml 467 ml Output Total 0 ml 1325 ml 1400 ml Balance 320 ml -1005 ml -933 ml JAMEE GUZMAN III DO Sep 08, 2016 10:51
[2016-09-08 11:00] VITALS: BP 103/60
--- NOTE | 2016-09-08 11:01 | PDOC ---
PULMONARY PROGRESS NOTES Subjective extubated 08/30 Vitals Vital Signs Date Time Temp Pulse Resp B/P Pulse Ox O2 Delivery O2 Flow Rate FiO2 09/08/16 08:30 Nasal Cannula 3.0 09/08/16 07:00 98.5 88 18 115/65 94 98.5 General: No acute distress Lungs: Clear Cardiovascular: S1, S2 Abdomen: Soft Extremities: Other (swelling left upper, lower extremity edema) Skin: Warm Labs Laboratory Tests Test 09/06/16 11:53 09/06/16 15:55 09/06/16 22:56 09/07/16 04:20 Glucose (Fingerstick) 83mg/dL (70-99) 113mg/dL (70-99) 219mg/dL (70-99) White Blood Count 10.0x10^3/uL (4.0-11.0) Red Blood Count 2.28x10^6/uL (4.30-5.70) Hemoglobin 7.5g/dL (13.0-17.5) Hematocrit 23.0% (39.0-53.0) Mean Corpuscular Volume 101fL (79-100) Mean Corpuscular Hemoglobin 33pg (25-35) Mean Corpuscular Hemoglobin Concent 33g/dL (31-37) Red Cell Distribution Width 21.7% (11.5-14.5) Platelet Count 257x10^3/uL (140-400) Neutrophils (%) (Auto) 74% (31-73) Lymphocytes (%) (Auto) 18% (24-48) Monocytes (%) (Auto) 7% (0-9) Eosinophils (%) (Auto) 1% (0-3) Basophils (%) (Auto) 1% (0-3) Neutrophils # (Auto) 7.3x10^3uL (1.8-7.7) Lymphocytes # (Auto) 1.8x10^3/uL (1.0-4.8) Monocytes # (Auto) 0.6x10^3/uL (0.0-1.1) Eosinophils # (Auto) 0.1x10^3/uL (0.0-0.7) Basophils # (Auto) 0.1x10^3/uL (0.0-0.2) Sodium Level 141mmol/L (136-145) Potassium Level 3.8mmol/L (3.5-5.1) Chloride Level 106mmol/L (98-107) Carbon Dioxide Level 32mmol/L (21-32) Anion Gap 3 (6-14) Blood Urea Nitrogen 20mg/dL (8-26) Creatinine 0.9mg/dL (0.7-1.3) Estimated GFR (Cockcroft-Gault) 106.0 Glucose Level 180mg/dL (70-99) Calcium Level 8.1mg/dL (8.5-10.1) Test 09/07/16 11:45 09/07/16 17:15 09/08/16 03:31 09/08/16 03:51 Glucose (Fingerstick) 175mg/dL (70-99) 130mg/dL (70-99) Sodium Level 142mmol/L (136-145) Potassium Level 4.2mmol/L (3.5-5.1) Chloride Level 104mmol/L (98-107) Carbon Dioxide Level 33mmol/L (21-32) Anion Gap 5 (6-14) Blood Urea Nitrogen 18mg/dL (8-26) Creatinine 0.8mg/dL (0.7-1.3) Estimated GFR (Cockcroft-Gault) 121.4 Glucose Level 115mg/dL (70-99) Calcium Level 8.7mg/dL (8.5-10.1) White Blood Count 12.1x10^3/uL (4.0-11.0) Red Blood Count 2.62x10^6/uL (4.30-5.70) Hemoglobin 8.6g/dL (13.0-17.5) Hematocrit 26.6% (39.0-53.0) Mean Corpuscular Volume 102fL (79-100) Mean Corpuscular Hemoglobin 33pg (25-35) Mean Corpuscular Hemoglobin Concent 33g/dL (31-37) Red Cell Distribution Width 22.3% (11.5-14.5) Platelet Count 326x10^3/uL (140-400) Neutrophils (%) (Auto) 75% (31-73) Lymphocytes (%) (Auto) 17% (24-48) Monocytes (%) (Auto) 6% (0-9) Eosinophils (%) (Auto) 1% (0-3) Basophils (%) (Auto) 1% (0-3) Neutrophils # (Auto) 9.1x10^3uL (1.8-7.7) Lymphocytes # (Auto) 2.0x10^3/uL (1.0-4.8) Monocytes # (Auto) 0.7x10^3/uL (0.0-1.1) Eosinophils # (Auto) 0.1x10^3/uL (0.0-0.7) Basophils # (Auto) 0.1x10^3/uL (0.0-0.2) Test 09/08/16 08:03 09/08/16 10:33 Glucose (Fingerstick) 120mg/dL (70-99) 125mg/dL (70-99) Laboratory Tests Test 09/07/16 11:45 09/07/16 17:15 09/08/16 03:31 09/08/16 03:51 Glucose (Fingerstick) 175mg/dL (70-99) 130mg/dL (70-99) Sodium Level 142mmol/L (136-145) Potassium Level 4.2mmol/L (3.5-5.1) Chloride Level 104mmol/L (98-107) Carbon Dioxide Level 33mmol/L (21-32) Anion Gap 5 (6-14) Blood Urea Nitrogen 18mg/dL (8-26) Creatinine 0.8mg/dL (0.7-1.3) Estimated GFR (Cockcroft-Gault) 121.4 Glucose Level 115mg/dL (70-99) Calcium Level 8.7mg/dL (8.5-10.1) White Blood Count 12.1x10^3/uL (4.0-11.0) Red Blood Count 2.62x10^6/uL (4.30-5.70) Hemoglobin 8.6g/dL (13.0-17.5) Hematocrit 26.6% (39.0-53.0) Mean Corpuscular Volume 102fL (79-100) Mean Corpuscular Hemoglobin 33pg (25-35) Mean Corpuscular Hemoglobin Concent 33g/dL (31-37) Red Cell Distribution Width 22.3% (11.5-14.5) Platelet Count 326x10^3/uL (140-400) Neutrophils (%) (Auto) 75% (31-73) Lymphocytes (%) (Auto) 17% (24-48) Monocytes (%) (Auto) 6% (0-9) Eosinophils (%) (Auto) 1% (0-3) Basophils (%) (Auto) 1% (0-3) Neutrophils # (Auto) 9.1x10^3uL (1.8-7.7) Lymphocytes # (Auto) 2.0x10^3/uL (1.0-4.8) Monocytes # (Auto) 0.7x10^3/uL (0.0-1.1) Eosinophils # (Auto) 0.1x10^3/uL (0.0-0.7) Basophils # (Auto) 0.1x10^3/uL (0.0-0.2) Test 09/08/16 08:03 09/08/16 10:33 Glucose (Fingerstick) 120mg/dL (70-99) 125mg/dL (70-99) Medications Active Scripts Medications Dose Route/Sig Days Date Category Milk Of Magnesia (Magnesium Hydroxide) 2,400 Mg/10 Ml Oral.susp 2,400 Mg PO DAILY PRN 08/21/15 Reported Dulcolax (Bisacodyl) 10 Mg Supp.rect 10 Mg RC PRN DAILY PRN 08/21/15 Reported Aspirin 325 Mg Tablet 1 Tab PEG DAILY 08/02/15 Reported Tylenol (Acetaminophen) 325 Mg Tablet 2 Tab PO PRN Q6HRS PRN 08/02/15 Reported Vitamin B Complex 1 Each Tablet 1 Tab PO DAILY 07/25/15 Reported Vitamin D3 (Cholecalciferol (Vitamin D3)) 1,000 Unit Tablet 2,000 Unit PO DAILY 07/25/15 Reported Keppra (Levetiracetam) 500 Mg Tablet 500 Mg PO BID 07/25/15 Reported Impression . 1. Acute hypoxic respiratory failure secondary septic shock, resolved, extubated 08/30 2. Septic shock cultures so far negative, resolved 3. Persistent abnormal chest x-ray with bilateral infiltrate 4. Acute severe metabolic acidosis with severe lactic acidosis secondary to sepsis/septic shock. MAHAD contributing to metabolic acidosis, improved 5. Hematuria 6. Urinary tract infection. 7. Coagulopathy, most likely related to early disseminated intravascular coagulation. 8. Underlying Down's syndrome 9. Dysphagia S/P PEG 10. New fever, ID following, left upper DVT 11. left upper DVT (brachial and axillary), non-occlusive Right lower extremity DVT 12. GI bleed Plan . d/c today resp status is compensated ERINN HORN MD Sep 08, 2016 11:00
== END 2016-09-08 17:54 | disposition home health service (06) | DRG 853 ==
LOC: ER 09:30 → 1 WEST ICU 12:55 → 5 NORTH 08-31 17:52
PROVIDERS: ADMIT Internal Medicine; ATTEND Internal Medicine
PROC: 02HV33Z Insertion of Infusion Device into Superior Vena Cava, Percutaneous Approach (ICD-10-PCS; 2016-08-23)
PROC: 5A09357 Assistance with Respiratory Ventilation, Less than 24 Consecutive Hours, Continuous Positive Airway Pressure (ICD-10-PCS; 2016-08-23)
PROC: 5A1955Z Respiratory Ventilation, Greater than 96 Consecutive Hours (ICD-10-PCS; principal; 2016-08-24)
PROC: 0BH17EZ Insertion of Endotracheal Airway into Trachea, Via Natural or Artificial Opening (ICD-10-PCS; 2016-08-24)
PROC: 05H833Z Insertion of Infusion Device into Left Axillary Vein, Percutaneous Approach (ICD-10-PCS; 2016-09-02)
PROC: 05HA33Z Insertion of Infusion Device into Left Brachial Vein, Percutaneous Approach (ICD-10-PCS; 2016-09-02)
PROC: 30233N1 Transfusion of Nonautologous Red Blood Cells into Peripheral Vein, Percutaneous Approach (ICD-10-PCS; 2016-09-04)
PROC: 06H03DZ Insertion of Intraluminal Device into Inferior Vena Cava, Percutaneous Approach (ICD-10-PCS; 2016-09-07)
DX: A41.9 Sepsis, unspecified organism (principal); J18.9 Pneumonia, unspecified organism; J96.01 Acute respiratory failure with hypoxia; N17.0 Acute kidney failure with tubular necrosis; R65.21 Severe sepsis with septic shock; E87.0 Hyperosmolality and hypernatremia; N13.30 Unspecified hydronephrosis; N39.0 Urinary tract infection, site not specified; E87.2 Acidosis; E11.65 Type 2 diabetes mellitus with hyperglycemia; Z51.5 Encounter for palliative care; E87.6 Hypokalemia; G40.909 Epilepsy, unspecified, not intractable, without status epilepticus; L89.90 Pressure ulcer of unspecified site, unspecified stage; M19.90 Unspecified osteoarthritis, unspecified site; E03.9 Hypothyroidism, unspecified; R13.10 Dysphagia, unspecified; Y95 Nosocomial condition; Z66 Do not resuscitate; D63.8 Anemia in other chronic diseases classified elsewhere; Z74.01 Bed confinement status; Z86.718 Personal history of other venous thrombosis and embolism; Z86.73 Personal history of transient ischemic attack (TIA), and cerebral infarction without residual deficits; Z93.1 Gastrostomy status; Q90.9 Down syndrome, unspecified
CPT/HCPCS: 36415; 36600; 37191; 71010; 74000; 76700; 76937; 80048; 80053; 80076; 80202; 81001; 82274; 82553; 82805; 82947; 83605; 83735; 83880; 84439; 84443; 84481; 84484; 85007; 85027; 85610; 86850; 86900; 86901; 86920; 87040; 87086; 87186; 87641; 87804; 93005; 93970; 93971; 94002; 94003; 94640; 94760; 96365; 96366; 96368; 96375; C1769; C1892; C1894; C9113; J0171; J1650; J1720; J1815; J1940; J1953; J1956; J2248; J2250; J2543; J2704; J2765; J3010; J3370; J3430; J3480; J3490; J7030; J7040; J7042; J7050; J7620; J8597; P9016; P9045; Q9967; 99285-25